=== PATIENT | female | born 1965 | race Caucasian/White ===

== ENCOUNTER → 2017-07-31 | Outpatient (CLI) | payer MEDICARE, OTHER ==
--- NOTE | 2017-07-31 19:53 | MR ---
EXAMINATION TYPE: MR curtis/katelyn wo con DATE OF EXAM: 07/31/2017 COMPARISON: NONE HISTORY: Pain TECHNIQUE: T1 sagittal and coronal, T2 sagittal, and gradient echo axial views of the cervical spine are submitted. FINDINGS: The cranial cervical junction is preserved. There is no abnormal signal seen within the sp inal cord or paraspinal soft tissues. At C2-3 there is no disc herniation or canal stenosis. No foraminal encroachment At C3-4 there is mild hypertrophic change of the facets. There is no disc herniation or canal stenosi s. No foraminal encroachment. At C4-5 there is mild facet arthropathy. No disc herniation or canal stenosis. Neural foramina are pa tent. At C5-6 there is mild degenerative disc disease and bilateral uncovertebral joint projecting. There i s circumferential disc bulging. No Canal stenosis. There is mild hypertrophic change of the facets an d mild bilateral foraminal encroachment. At C6-7 there is severe degenerative disc disease. There is uncovertebral joint hypertrophy on the le ft contributes to mild left foraminal encroachment. No discrete disc herniation or canal stenosis. At C7-T1 there is no disc herniation or canal stenosis. No foraminal encroachment. IMPRESSION: 1. Multilevel degenerative disc disease with no evidence of canal stenosis or discrete herniation. U ncovertebral joint hypertrophy at C5-C6 and C6-C7 results in mild foraminal encroachment as discussed above. EXAMINATION TYPE: MR curtis/katelyn wo con DATE OF EXAM: 07/31/2017 COMPARISON: NONE HISTORY: Pain Standard multiplanar, multisequence MRI departmental protocol Multiplanar, multisequence images of the thoracic spine were acquired. FINDINGS: At T7-T8 there is degenerative disc disease and broad-based central disc bulging with mild effacement of sac. No foraminal encroachment or canal stenosis. T8-T9 there is degenerative disc disease. No disc herniation, canal stenosis or foraminal encroachmen t. Tiny vertebral body hemangioma noted. At T9-T10 there is degenerative disc disease. There is disc bulging greater paracentrally to the left . No spinal cord contact. Neural foramina remains patent. Remaining levels demonstrate no disc herniation, canal stenosis, or foraminal encroachment. There is a large hiatal hernia. No abnormal signal the visualized spinal cord. IMPRESSION: 1. Multilevel mild degenerative disc disease with disc bulging at T7-T8 and T9-T10 with mild effaceme nt of thecal sac. No foraminal encroachment at either level. 2. Large hiatal hernia.
== END | disposition home or self-care (01) ==
LOC: RADMRIMAIN 17:26
PROVIDERS: ATTEND Psychiatry & Neurology Neurology
DX: M51.24 Other intervertebral disc displacement, thoracic region (principal); M50.322 Other cervical disc degeneration at C5-C6 level; M51.34 Other intervertebral disc degeneration, thoracic region; M89.38 Hypertrophy of bone, other site
CPT/HCPCS: 72141; 72146

== ENCOUNTER → 2017-12-07 | Outpatient (CLI) | payer MEDICARE, OTHER ==
--- NOTE | 2017-12-07 22:49 | MR ---
EXAMINATION TYPE: MR lumbar spine wo con DATE OF EXAM: 12/07/2017 COMPARISON: NONE HISTORY: Chronic low back pain TECHNIQUE: Multiplanar, multisequence imaging of the lumbar spine is performed without IV contrast. FINDINGS: Sagittal images of the lumbar spine show vertebral body heights and alignment to appear sat isfactory. Multilevel disc desiccation is present there is moderate disc space narrowing L2-L3 and L3 -L4 levels with small posterior disc herniation seen on sagittal images at these levels and mild to m oderate anterior spurring. The conus medullaris is normal in position and signal ending mid L1 level . Small hemangioma L4 level is noted. Axial images show the T12-L1 and L1-L2 levels to appear within normal limits. Axial images at the L2-L3 level shows broad-based posterior disc protrusion mildly effaces the anteri or thecal sac, bilateral neural foramina show mild left-sided anterior inferior neural foraminal narr owing. Right-sided neural foramina is patent. Axial images at the L3-L4 level show mild to moderate broad disc bulge mildly effacing anterior theca l sac and causing mild bilateral anterior inferior neural foraminal narrowing. Axial images at L4-L5 level shows mild facet degenerative changes bilaterally. Spinal canal is preser amie. Bilateral neural foramina are patent. Axial images at the L5-S1 level show mild facet degenerative changes bilaterally. The central disc pr otrusion seen. Spinal canal is preserved. Bilateral neural foramina are patent. No suspicious incidental retroperitoneal findings are seen. IMPRESSION: Multilevel degenerative changes in the mid to lower lumbar spine as detailed above.
== END | disposition home or self-care (01) ==
LOC: RADMRIMAIN 16:22
PROVIDERS: ATTEND Psychiatry & Neurology Neurology
DX: D18.09 Hemangioma of other sites (principal); M48.061 Spinal stenosis, lumbar region without neurogenic claudication; M99.73 Connective tissue and disc stenosis of intervertebral foramina of lumbar region; M51.26 Other intervertebral disc displacement, lumbar region; M47.817 Spondylosis without myelopathy or radiculopathy, lumbosacral region
CPT/HCPCS: 72148

== ENCOUNTER 2018-04-20 01:12 | Emergency (ER) | payer MEDICARE, OTHER ==
[2018-04-20 01:56] LABS: Anisocytosis Slight; Basophils % (A) 0 %; Eosinophils # (A) 0.3 k/uL (0-0.7); Eosinophils % (A) 4 %; HCT 39.9 % (34.0-46.0); HGB 12.2 gm/dL (11.4-16.0); Hypochromasia Slight; Lymphocytes # (A) 1.2 k/uL (1.0-4.8); Lymphocytes % (A) 13 %; MCHC 30.6 g/dL (31.0-37.0); MCV 78.5 fL (80.0-100.0); Mean Platelet Volume 6.6; Microcytosis Slight; Monocytes # (A) 0.4 k/uL (0-1.0); Monocytes % (A) 5 %; Neutrophils # (A) 7.3 k/uL (1.3-7.7); Neutrophils % (A) 78 %; Platelet Count 328 k/uL (150-450); RBC 5.08 m/uL (3.80-5.40); WBC 9.4 k/uL (3.8-10.6)
[2018-04-20 02:07] LABS: Potassium 4.6 mmol/L (3.5-5.1)
[2018-04-20 02:08] LABS: Albumin 4.1 g/dL (3.5-5.0); Calcium 9.7 mg/dL (8.4-10.2); Total Bilirubin 0.4 mg/dL (0.2-1.3); Total Protein 6.7 g/dL (6.3-8.2)
--- NOTE | 2018-04-20 03:54 | ED ---
General Adult HPI - General Stated complaint: poss seizure Time Seen by Provider: 04/20/18 01:28 Source: patient, EMS Mode of arrival: EMS Limitations: no limitations - History of Present Illness Initial comments: Solange is a 52-year-old female presents to the emergency department today via EMS for reevaluation of an episode of confusion that occurred earlier in the day. Patient reports that earlier in the day she was at her home when she reports she just became very confused and disoriented, patient was seen and evaluated and outside hospital where she had lab work, head CT and urinalysis. Her workup was unremarkable and she was discharged home. Patient reports that upon discharge home her family became concerned that she didn't stay in the hospital called EMS and requested she come to our hospital for reevaluation. Patient reports that she was feeling confused her hands were flailing around but that she remembers the entire event. She denies any associated fevers, chills, nausea, vomiting, chest pain, palpitations. She reports she's been otherwise feeling well. - Related Data Home Medications Medication Instructions Recorded Confirmed Citalopram 60 Mg 60 mg PO 1300 09/18/14 11/09/14 Donepezil [Aricept] 10 mg PO BID 09/18/14 11/09/14 Gabapentin 800 mg PO QID 09/18/14 11/09/14 Meloxicam [Mobic] 7.5 mg PO 1100,2300 09/18/14 11/09/14 Omeprazole [PriLOSEC] 20 mg PO 1100,2300 09/18/14 11/09/14 Oxycodone 5 Mg 5 mg PO 5XD 09/18/14 11/09/14 Theophylline 12 Hour [Jayro-Dur] 300 mg PO DAILY@0500,1700 09/18/14 11/09/14 rOPINIRole HCL [Requip Xl] 3 mg PO DAILY@2300 09/18/14 11/09/14 Diazepam [Valium] 10 mg PO HS 11/07/14 11/09/14 Ergocalciferol [Vitamin D2 50,000 unit PO QMONTH 11/07/14 11/09/14 (DRISDOL)] Ferrous Sulfate [Iron (65 MG 1 tab PO DAILY 11/07/14 11/09/14 Elemental)] Gemfibrozil [Lopid] 600 mg PO HS 11/07/14 11/09/14 risperiDONE [RisperDAL] 10 mg PO BID 11/07/14 11/09/14 Allergies Allergy/AdvReac Type Severity Reaction Status Date / Time No Known Allergies Allergy Verified 11/07/14 15:15 Review of Systems ROS Statement: Those systems with pertinent positive or pertinent negative responses have been documented in the HPI. ROS Other: All systems not noted in ROS Statement are negative. Past Medical History Past Medical History: Asthma, COPD, GERD/Reflux, Memory Impairment, Musculoskeletal Disorder, Osteoarthritis (OA), Sleep Apnea/CPAP/BIPAP Additional Past Medical History / Comment(s): PT STATES SOME MEMORY PROBLEMS AND LEARNING DISABILITY, HAS FRIEND WHO HELPS HER WITH MEDICATIONS AND APPTS., STATES MUSCLE SPASMS, BACK PROBLEMS WITH DISC DISEASE, ANEMIA, URINARY URGENCY, PROBLEMS WITH DIARRHEA & CONSTIPATION. History of Any Multi-Drug Resistant Organisms: None Reported Past Surgical History: Section, Cholecystectomy, Hysterectomy Additional Past Surgical History / Comment(s): 2 C-SECTIONS, PARTIAL HYSTERECTOMY, BERNADETTE REMOVED. Past Anesthesia/Blood Transfusion Reactions: Motion Sickness Additional Past Anesthesia/Blood Transfusion Reaction / Comment(s): STATES DIFFICULTY WAKING UP AFTER ANESTHESIA Past Psychological History: Anxiety, Depression Smoking Status: Former smoker Past Alcohol Use History: None Reported Past Drug Use History: None Reported - Past Family History Mother Family Medical History: Cancer Additional Family Medical History / Comment(s): LUNG AND BRAIN CA General Exam - General Exam Comments Initial Comments: Physical Exam GENERAL: Patient is well-developed and well-nourished. Patient is nontoxic and well- hydrated and is in no distress. HENT: Normocephalic, Atraumatic. EYES: PERRL, EOMI PULMONARY: Unlabored respirations. No audible rales rhonchi or wheezing was noted. CARDIOVASCULAR: There is a regular rate and rhythm without any murmurs gallops or rubs. ABDOMEN: Soft and nontender with normal bowel sounds. SKIN: Skin is clear with no lesions or rashes and otherwise unremarkable. : Deferred NEUROLOGIC: Patient is alert and oriented x3. Moving all extremities spontaneously MUSCULOSKELETAL: Normal extremities with adequate strength and full range of motion. No lower extremity swelling or edema. No calf tenderness. Walks with cane PSYCHIATRIC: Normal psychiatric evaluation. Limitations: no limitations Limitations: no limitations Course Vital Signs 04/20/18 04/20/18 01:28 06:20 Temperature 98.5 F 98.0 F Pulse Rate 94 80 Respiratory 16 19 Rate Blood Pressure 143/103 125/92 O2 Sat by Pulse 96 97 Oximetry EKG Findings - EKG Comments: EKG Findings:: EKG obtained at 2:12 AM, rate is 83 rhythm is sinus there is normal axis normal intervals no acute ST elevations or depressions no evidence of ischemia or infarction. Medical Decision Making - Medical Decision Making The patient was seen and evaluated history was obtained from patient, EMS and review of outpatient records which she brought with her Patient had a episode of feeling confused earlier in the day, she was evaluated and had a negative head CT normal labs and was discharged home and advised to follow-up with her primary care physician. Patient returns to the emergency department for reevaluation, at this time she is awake alert oriented in no acute distress. Family called prior to the patient arriving advising that they were unable to travel with her with EMS and that she needs to stay in the hospital overnight because they have no means of transportation to bring her home. Patient was evaluated and was noted be stable, repeat labs were obtained Patient was given IV fluids. Patient remained stable with no episodes of confusion no focal neurological deficits, no seizure activity at this time I do not feel the patient requires inpatient admission. Patient agreeable to this. Patient's agreeable to plan for discharge home however is concerned she doesn't have a ride. Patient was observed until 6:30 AM at which time she was encouraged to contact her family for a ride home. Patient care was discussed with her primary care physician Dr. Leal who states that he will see the patient in office on Thursday at 11 AM. Patient was updated on this plan and is agreeable. Patient discharged home in stable condition return parameters were discussed and questions pertaining to care were answered. - Lab Data Result diagrams: 04/20/18 01:37 04/20/18 01:37 Lab Results 04/20/18 04/20/18 04/20/18 Range/Units 01:37 01:37 01:37 WBC 9.4 (3.8-10.6) k/uL RBC 5.08 (3.80-5.40) m/uL Hgb 12.2 (11.4-16.0) gm/dL Hct 39.9 (34.0-46.0) % MCV 78.5 L (80.0-100.0) fL MCH 24.0 L (25.0-35.0) pg MCHC 30.6 L (31.0-37.0) g/dL RDW 18.0 H (11.5-15.5) % Plt Count 328 (150-450) k/uL Neutrophils % 78 % Lymphocytes % 13 % Monocytes % 5 % Eosinophils % 4 % Basophils % 0 % Neutrophils # 7.3 (1.3-7.7) k/uL Lymphocytes # 1.2 (1.0-4.8) k/uL Monocytes # 0.4 (0-1.0) k/uL Eosinophils # 0.3 (0-0.7) k/uL Basophils # 0.0 (0-0.2) k/uL Hypochromasia Slight Anisocytosis Slight Microcytosis Slight Sodium 139 (137-145) mmol/L Potassium 4.6 (3.5-5.1) mmol/L Chloride 105 (98-107) mmol/L Carbon Dioxide 23 (22-30) mmol/L Anion Gap 11 mmol/L BUN 14 (7-17) mg/dL Creatinine 1.03 (0.52-1.04) mg/dL Est GFR (CKD-EPI)AfAm 71 (>60 ml/min/1.73 sqM) Est GFR (CKD-EPI)NonAf 62 (>60 ml/min/1.73 sqM) Glucose 115 H (74-99) mg/dL Lactic Ac Sepsis Rflx Plasma Lactic Acid Mak 2.2 H* (0.7-2.0) mmol/L Calcium 9.7 (8.4-10.2) mg/dL Total Bilirubin 0.4 (0.2-1.3) mg/dL AST 25 (14-36) U/L ALT 24 (9-52) U/L Alkaline Phosphatase 89 (38-126) U/L Total Protein 6.7 (6.3-8.2) g/dL Albumin 4.1 (3.5-5.0) g/dL Urine Color Urine Appearance (Clear) Urine pH (5.0-8.0) Ur Specific [place] (1.001-1.035) Urine Protein (Negative) Urine Glucose (UA) (Negative) Urine Ketones (Negative) Urine Blood (Negative) Urine Nitrite (Negative) Urine Bilirubin (Negative) Urine Urobilinogen (<2.0) mg/dL Ur Leukocyte Esterase (Negative) Urine RBC (0-5) /hpf Urine WBC (0-5) /hpf Ur Squamous Epith Cells (0-4) /hpf Urine Bacteria (None) /hpf Urine Mucus (None) /hpf 04/20/18 04/20/18 04/20/18 Range/Units 02:17 02:45 06:05 WBC (3.8-10.6) k/uL RBC (3.80-5.40) m/uL Hgb (11.4-16.0) gm/dL Hct (34.0-46.0) % MCV (80.0-100.0) fL MCH (25.0-35.0) pg MCHC (31.0-37.0) g/dL RDW (11.5-15.5) % Plt Count (150-450) k/uL Neutrophils % % Lymphocytes % % Monocytes % % Eosinophils % % Basophils % % Neutrophils # (1.3-7.7) k/uL Lymphocytes # (1.0-4.8) k/uL Monocytes # (0-1.0) k/uL Eosinophils # (0-0.7) k/uL Basophils # (0-0.2) k/uL Hypochromasia Anisocytosis Microcytosis Sodium (137-145) mmol/L Potassium (3.5-5.1) mmol/L Chloride (98-107) mmol/L Carbon Dioxide (22-30) mmol/L Anion Gap mmol/L BUN (7-17) mg/dL Creatinine (0.52-1.04) mg/dL Est GFR (CKD-EPI)AfAm (>60 ml/min/1.73 sqM) Est GFR (CKD-EPI)NonAf (>60 ml/min/1.73 sqM) Glucose (74-99) mg/dL Lactic Ac Sepsis Rflx Y Plasma Lactic Acid Mak 1.6 (0.7-2.0) mmol/L Calcium (8.4-10.2) mg/dL Total Bilirubin (0.2-1.3) mg/dL AST (14-36) U/L ALT (9-52) U/L Alkaline Phosphatase (38-126) U/L Total Protein (6.3-8.2) g/dL Albumin (3.5-5.0) g/dL Urine Color Yellow Urine Appearance Clear (Clear) Urine pH 6.0 (5.0-8.0) Ur Specific [place] 1.012 (1.001-1.035) Urine Protein Negative (Negative) Urine Glucose (UA) Negative (Negative) Urine Ketones Negative (Negative) Urine Blood Negative (Negative) Urine Nitrite Positive H (Negative) Urine Bilirubin Negative (Negative) Urine Urobilinogen <2.0 (<2.0) mg/dL Ur Leukocyte Esterase Negative (Negative) Urine RBC 1 (0-5) /hpf Urine WBC 3 (0-5) /hpf Ur Squamous Epith Cells 1 (0-4) /hpf Urine Bacteria Many H (None) /hpf Urine Mucus Occasional H (None) /hpf Disposition Clinical Impression: Confusion Disposition: HOME SELF-CARE Condition: Stable Instructions (If sedation given, give patient instructions): Encephalopathy (DC ) Additional Instructions: Dr. Leal can see you in the office on Thursday at 11 AM, please call his office today to confirm this. Is patient prescribed a controlled substance at d/c from ED?: No Referrals: Michael Leal MD [Primary Care Provider] - 1-2 days
[2018-04-20 04:04] LABS: Appearance,Urine Clear (Clear); Bacteria,Urine Many /hpf; Bilirubin,Urine Negative (Negative); Blood,Urine Negative (Negative); Color,Urine Yellow; Glucose,Urine (UA) Negative (Negative); Ketones,Urine Negative (Negative); Leukocyte Esterase,Urine Negative (Negative); Mucus,Urine Occasional /hpf; Nitrite,Urine Positive (Negative); Protein,Urine Negative (Negative); RBC,Urine 1 /hpf (0-5); Specific Gravity,Urine 1.012 (1.001-1.035); Squamous Epithelial Cell,Urine 1 /hpf (0-4); Urobilinogen,Urine <2.0 mg/dL (<2.0); WBC,Urine 3 /hpf (0-5)
[2018-04-20 06:22] VITALS: BP 125/92; PULSE 80; RESP 19; TEMP 98
== END 2018-04-20 06:32 | disposition home or self-care (01) ==
LOC: EC 01:12
DX: R41.0 Disorientation, unspecified (principal); J44.9 Chronic obstructive pulmonary disease, unspecified; K21.9 Gastro-esophageal reflux disease without esophagitis; M19.90 Unspecified osteoarthritis, unspecified site; G47.30 Sleep apnea, unspecified; D64.9 Anemia, unspecified; F32.9 Major depressive disorder, single episode, unspecified; F41.9 Anxiety disorder, unspecified; Z87.891 Personal history of nicotine dependence; Z79.1 Long term (current) use of non-steroidal anti-inflammatories (NSAID); Z79.891 Long term (current) use of opiate analgesic; Z79.899 Other long term (current) drug therapy; Z99.89 Dependence on other enabling machines and devices
CPT/HCPCS: 36415; 80053; 81001; 83605; 85025; 93005; 99285

== ENCOUNTER → 2022-01-01 | Outpatient (CLI) | payer MEDICARE ==
--- NOTE | 2022-01-01 10:30 | US ---
EXAMINATION TYPE: US venous doppler duplex LE RT DATE OF EXAM: 01/01/2022 10:17 AM COMPARISON: NONE CLINICAL HISTORY: I80.9 phlebitis. Right knee pain increasing since trauma 3 years prior. SIDE PERFORMED: TECHNIQUE: The lower extremity deep venous system is examined utilizing real time linear array sonog weston with graded compression, doppler sonography and color-flow sonography. VESSELS IMAGED: Common Femoral Vein Deep Femoral Vein Greater Saphenous Vein * Femoral Vein Popliteal Vein Small Saphenous Vein * Proximal Calf Veins (* superficial vessels) Right Leg: Negative for DVT IMPRESSION: No evidence for DVT at this time.
== END | disposition home or self-care (01) ==
LOC: RADUSWWP 09:52
PROVIDERS: ATTEND Orthopaedic Surgery
DX: I80.9 Phlebitis and thrombophlebitis of unspecified site (principal); M17.0 Bilateral primary osteoarthritis of knee; M23.301 Other meniscus derangements, unspecified lateral meniscus, left knee; M23.304 Other meniscus derangements, unspecified medial meniscus, left knee

== ENCOUNTER → 2022-03-10 | Outpatient (CLI) | payer MEDICARE ==
--- NOTE | 2022-03-10 13:35 | CTL ---
EXAMINATION TYPE: CT Low Dose Lung DATE OF EXAM ORDERED: 03/10/2022 HISTORY: Z87.891 Personal History of Tobacco Use. Lung cancer screening CT DLP: 68.[address] CTDI: 2.40 mGy Automated exposure control for dose reduction was used. SCREENING VISIT: First COMPARISON: None TECHNIQUE: Low dose computed tomography scan was performed through the chest at 1 mm thick sections a nd reconstructed images in multiple planes at 1 mm and [address] DIAGNOSTIC QUALITY: Satisfactory FINDINGS: LUNG NODULES: Right apical 3 mm pulmonary nodule (series 4, image 31). Right upper lobe anterior calc ified granuloma measuring 5 mm (series 4, image 89). Right upper lobe 5 mm nodule along the right min or fissure (series 4, image 99). This may represent intrafissural lymph node. LUNGS: COPD: Severity: Minimal. Fibrosis: Severity: None Lymph nodes: None Other findings: None RIGHT PLEURAL SPACE: Effusion: None Calcification: None Thickening: None Pneumothorax: None LEFT PLEURAL SPACE: Effusion: None Calcification: None Thickening: None Pneumothorax: None HEART: Heart Size: Normal Coronary Calcification: None Pericardial Effusion: None OTHER FINDINGS: Upper abdomen: Moderate sized hiatal hernia. Postcholecystectomy Bony thorax: None Supraclavicular region: None Other: None IMPRESSION: 1. Couple of pulmonary nodules measuring up to 5 mm. 2. Moderate-sized hiatal hernia. CT LUNG RAD AND CT CHEST RECOMMENDATION: Lung-Rad 2 Benign Appearance or Behavior: Continue annual sc reening with LDCT in 12 months. S Modifier (other clinically significant findings): None
== END | disposition home or self-care (01) ==
LOC: RADCTMAIN 12:46
PROVIDERS: ATTEND Internal Medicine
DX: Z12.2 Encounter for screening for malignant neoplasm of respiratory organs (principal); R91.8 Other nonspecific abnormal finding of lung field; K44.9 Diaphragmatic hernia without obstruction or gangrene; Z87.891 Personal history of nicotine dependence
CPT/HCPCS: 71271

== ENCOUNTER → 2022-11-13 | Outpatient (CLI) | payer MEDICARE ==
--- NOTE | 2022-11-13 13:18 | XR ---
EXAMINATION TYPE: XR abdomen 2V DATE OF EXAM: 11/13/2022 COMPARISON: NONE HISTORY: Pain TECHNIQUE: Single supine KUB image of the abdomen is obtained FINDINGS: Small bowel demonstrates no evidence for dilatation or air fluid levels. Biliary stent is again noted as well as catheter. Cholecystectomy clips are in place. MediPort cathet er partially imaged. Gas and fecal material is seen in non-distended colon. No convincing evidence for pneumoperitoneum. No unusual calcifications. The lung bases are clear. The osseous structures are intact. IMPRESSION: 1. Overall nonobstructive bowel gas pattern.
== END | disposition home or self-care (01) ==
LOC: RADXRMAIN 11:51
PROVIDERS: ATTEND Internal Medicine Hematology & Oncology
DX: C25.0 Malignant neoplasm of head of pancreas (principal); N18.9 Chronic kidney disease, unspecified; J44.9 Chronic obstructive pulmonary disease, unspecified; E78.5 Hyperlipidemia, unspecified
CPT/HCPCS: 74019

== ENCOUNTER 2022-11-28 13:02 | Inpatient (IN) | payer MEDICARE ==
[2022-11-28] MEDS ORDERED: SODIUM CHLORIDE 0.9% 500 ML 500 ML IV STA (13:35)
--- NOTE | 2022-11-28 13:39 | ED ---
General Adult HPI - General Source: patient, RN notes reviewed, old records reviewed Mode of arrival: wheelchair Limitations: no limitations <Otoniel Nichols - Last Filed: 11/28/22 15:12> <Franklyn Francois - Last Filed: 11/28/22 16:38> - General Chief complaint: Weakness Stated complaint: Dehydration,Weakness Time Seen by Provider: 11/28/22 13:05 - History of Present Illness Initial comments: This is a 57-year-old female presents emergency Department she has a past medical history significant for pancreatic metastatic cancer. Patient got chemo on November 17. Patient states she's been having quite a bit of diarrhea since then and she has also been getting weaker and has not been urinating for the last couple of days. Patient denies any chest pain or palpitations. Patient denies difficulty breathing shortness of breath. Patient denies any fever chills. Patient denies any abdominal pain patient denies any nausea or vomiting. (Otoniel Nichols) - Related Data Home Medications Medication Instructions Recorded Confirmed Albuterol Inhaler [Ventolin Hfa 1 - 2 puff INHALATION RT-Q6H PRN 11/03/22 11/28/22 Inhaler] Aspirin EC [Ecotrin Low Dose] 81 mg PO DAILY 11/03/22 11/28/22 DULoxetine HCL [Cymbalta] 30 mg PO BID 11/03/22 11/28/22 Ferrous Sulfate [Iron] 325 mg PO DAILY 11/03/22 11/28/22 Fluticasone/Umeclidin/Vilanter 1 puff INHALATION RT-DAILY 11/03/22 11/28/22 [Trelegy Ellipta 100-62.5-25] Metoprolol Tartrate [Lopressor] 25 mg PO BID 11/03/22 11/28/22 Midodrine HCl 5 mg PO TID 11/03/22 11/28/22 Potassium Chloride ER [K-Dur 20] 20 meq PO BID 11/03/22 11/28/22 calcitrioL [Calcitriol] 0.25 mcg PO DAILY 11/03/22 11/28/22 Budesonide [Pulmicort] 0.5 mg INHALATION RT-BID 11/28/22 11/28/22 Cholestyramine (with Sugar) 4 gm PO BID 11/28/22 11/28/22 [Cholestyramine Powder] Famotidine [Pepcid] 40 mg PO DAILY 11/28/22 11/28/22 Ipratropium-Albuterol Nebulize 3 ml INHALATION RT-Q6H PRN 11/28/22 11/28/22 [Duoneb 0.5 mg-3 mg/3 ml Soln] LORazepam [Ativan] 0.5 mg PO Q8HR PRN 11/28/22 11/28/22 Ondansetron [Zofran] 4 mg PO Q6H PRN 11/28/22 11/28/22 Pantoprazole Sodium [Protonix] 40 mg PO BID 11/28/22 11/28/22 Rosuvastatin Calcium 5 mg PO HS 11/28/22 11/28/22 lamoTRIgine [LaMICtal] 75 mg PO HS 11/28/22 11/28/22 Allergies Allergy/AdvReac Type Severity Reaction Status Date / Time No Known Allergies Allergy Verified 11/28/22 15:42 Review of Systems ROS Other: All systems not noted in ROS Statement are negative. <Otoniel Nichols - Last Filed: 11/28/22 15:12> ROS Other: All systems not noted in ROS Statement are negative. <Franklyn Francois - Last Filed: 11/28/22 16:38> ROS Statement: Those systems with pertinent positive or pertinent negative responses have been documented in the HPI. Past Medical History Past Medical History: Asthma, Cancer, COPD, GERD/Reflux, Memory Impairment, Mu sculoskeletal Disorder, Osteoarthritis (OA), Sleep Apnea/CPAP/BIPAP Additional Past Medical History / Comment(s): PT STATES SOME MEMORY PROBLEMS AND LEARNING DISABILITY, HAS FRIEND WHO HELPS HER WITH MEDICATIONS AND APPTS., STATES MUSCLE SPASMS, BACK PROBLEMS WITH DISC DISEASE, ANEMIA, URINARY URGENCY, PROBLEMS WITH DIARRHEA & CONSTIPATION.Pancreatic CA History of Any Multi-Drug Resistant Organisms: None Reported Past Surgical History: Section, Cholecystectomy, Hysterectomy Additional Past Surgical History / Comment(s): 2 C-SECTIONS, PARTIAL HYSTERECTOMY, BERNADETTE REMOVED. Past Anesthesia/Blood Transfusion Reactions: Motion Sickness Additional Past Anesthesia/Blood Transfusion Reaction / Comment(s): STATES DIFFICULTY WAKING UP AFTER ANESTHESIA Past Psychological History: Anxiety, Depression Smoking Status: Former smoker Past Alcohol Use History: None Reported Past Drug Use History: None Reported - Past Family History Mother Family Medical History: Cancer Additional Family Medical History / Comment(s): LUNG AND BRAIN CA <Otoniel Nichols - Last Filed: 11/28/22 15:12> General Exam Limitations: no limitations <Otoniel Nichols - Last Filed: 11/28/22 15:12> - General Exam Comments Initial Comments: GENERAL: Patient is well-developed and well-nourished. Patient is nontoxic and well- hydrated and is in mild distress. ENT: Neck is soft and supple. No significant lymphadenopathy is noted. Oropharynx is clear. Moist mucous membranes. Neck has full range of motion without eliciting any pain. EYES: The sclera were anicteric and conjunctiva were pink and moist. Extraocular movements were intact and pupils were equal round and reactive to light. Eyelids were unremarkable. PULMONARY: Unlabored respirations. Good breath sounds bilaterally. No audible rales rhonchi or wheezing was noted. CARDIOVASCULAR: There is a regular rate and rhythm without any murmurs gallops or rubs. ABDOMEN: Soft and nontender with normal bowel sounds. SKIN: Skin is clear with no lesions or rashes and otherwise unremarkable. NEUROLOGIC: Patient is alert and oriented x3. Cranial nerves II through XII are grossly intact. Motor and sensory are also intact. Normal speech, volume and content. Symmetrical smile. MUSCULOSKELETAL: Normal extremities with adequate strength and full range of motion. No lower extremity swelling or edema. No calf tenderness. LYMPHATICS: No significant lymphadenopathy is noted PSYCHIATRIC: Normal psychiatric evaluation. (Otoniel Nichols) Course Vital Signs 11/28/22 11/28/22 13:05 15:08 Temperature 97.7 F Pulse Rate 129 H 97 Respiratory 22 18 Rate Blood Pressure 90/66 112/87 O2 Sat by Pulse 97 100 Oximetry Medical Decision Making - Lab Data Result diagrams: 11/28/22 14:18 <Otoniel Nichols - Last Filed: 11/28/22 15:12> - Lab Data Result diagrams: 11/28/22 14:18 11/28/22 14:18 <Franklyn Francois - Last Filed: 11/28/22 16:38> - Medical Decision Making EKG was interpreted by myself. EKG shows a sinus rhythm occasional PAC at 99 bpm UT interval is on a 55 QRS is 82 QT interval 385 QTC is 441. Patient's EKG shows no ST segment elevation or depression. Was pt. sent in by a medical professional or institution (, [facility], [facility], urgent care, hospital, or residential...) When possible be specific @ -Was sent to the emergency department by the oncologist Did you speak to anyone other than the patient for history (EMS, parent, family, police, friend...)? What history was obtained from this source @ -Daughter did quite a bit of the history Did you review nursing and triage notes (agree or disagree)? Why? @ -[I reviewed and agree with nursing and triage notes] Were old charts reviewed (outside hosp., previous admission, EMS record, old EKG, old radiological studies, urgent care reports/EKG's, residential records)? Report findings @ -I reviewed prior charts from prior lab work Differential Diagnosis (chest pain, altered mental status, abdominal pain women, abdominal pain men, vaginal bleeding, weakness, fever, dyspnea, syncope, headache, dizziness, GI bleed, back pain, seizure, CVA, palpatations, mental health, musculoskeletal)? @ -Differential Weakness: Hypoglycemia, shock, sepsis, hyponatremia, anemia, infection, KS, ETOH, adverse medicine reaction, overdose, stroke, this is not meant to be an all-inclusive list. EKG interpreted by me (3pts min.). @ -[As above] X-rays interpreted by me (1pt min.). @ -[None done] CT interpreted by me (1pt min.). @ -[None done] U/S interpreted by me (1pt. min.). @ -[None done] What testing was considered but not performed or refused? (CT, X-rays, U/S, l abs)? Why? @ -[None] What meds were considered but not given or refused? Why? @ -[None] Did you discuss the management of the patient with other professionals (professionals i.e. [facility] Blancas, [facility], lab, RT, psych nurse, director of social work, scheduler conveyor, teacher, safety and security officer, pillowcase cleaner)? Give summary @ -[No] Was smoking cessation discussed for >3mins.? @ -[No] Was critical care preformed (if so, how long)? @ -[No] Were there social determinants of health that impacted care today? How? (Homelessness, low income, unemployed, alcoholism, drug addiction, transportation, low edu. Level, literacy, decrease access to med. care, fdc, rehab)? @ -[No] Was there de-escalation of care discussed even if they declined (Discuss DNR or withdrawal of care, Hospice)? DNR status @ -[No] What co-morbidities impacted this encounter? (DM, HTN, Smoking, COPD, CAD, Cancer, CVA, ARF, Chemo, Hep., AIDS, mental health diagnosis, sleep apnea, morbid obesity)? @ -[None] Was patient admitted / discharged? Hospital course, mention meds given and route, prescriptions, significant lab abnormalities, going to OR and other p ertinent info. @ -Patient will be signed out to Dr. Francois at 3 PM he will be taking over the care that point in time (Otoniel Nichols) Patient signed out to me pending results of workup. Patient is a history of pancreatic cancer and has a history after chemotherapy with intractable nausea, vomiting, diarrhea. This is been ongoing for the last week. Has been feeling weaker with us urine production. Presents for further evaluation at this time. Workup thus far started EKG without any obvious acute ischemic process. EKG was interpreted by myself as well as Dr. Nichols. Chest x-ray as interpreted by myself reveals no evidence of acute cardio pulmonary process. Patient's laboratory studies returned and were remarkable for a leukopenia as well as leukocytopenia, both of which are likely related to her recent chemotherapy. Patient's hypokalemia at 2.5 with no evidence of EKG changes. Supplementation was started. Remainder of labs are within acceptable limits. Her flanks start the patient on potassium supplementation as well as magnesium supplementation. Continued IV fluids. I treated the patient, and I recommended we obtain a urina lysis which is still pending as well as the Covid swab but I have low suspicion for infectious cause of this at this time. Likely related to the recent chemotherapy. Patient was in agreement this plan as this has occurred previously and she denies any fevers. I will provide additional potassium s upplementation at this time, and admit the patient for IV fluids as well as potassium. Patient was in agreement this plan. Dr. Murray will be consulted. I spoke with the attending physician, Dr. Leal who accepted the patient. Diagnosis/symptom? @ -Hypokalemia and dehydration, likely secondary to nausea and vomiting as well as dehydration from chemotherapy with history of pancreatic cancer Acute, or Chronic, or Acute on Chronic? @ -Acute Uncomplicated (without systemic symptoms) or Complicated (systemic symptoms)? @ -Complicated Side ffecs of treatment? @ -none Exacerbation, Progression, orSeere Exacerbation] @ -no Poses a threat to life or bodily function? @ -yes. (Franklyn Francois) - Lab Data Lab Results 11/28/22 11/28/22 11/28/22 Range/Units 14:18 14:18 14:18 WBC 1.6 L (3.8-10.6) k/uL RBC 5.42 H (3.80-5.40) m/uL Hgb 14.9 (11.4-16.0) gm/dL Hct 42.6 (34.0-46.0) % MCV 78.6 L (80.0-100.0) fL MCH 27.5 (25.0-35.0) pg MCHC 35.0 (31.0-37.0) g/dL RDW 13.8 (11.5-15.5) % Plt Count 50 L D (150-450) k/uL MPV 12.7 Neutrophils % (Manual) 36 % Band Neuts % (Manual) 2 % Lymphocytes % (Manual) 28 % Monocytes % (Manual) 26 % Eosinophils % (Manual) 8 % Neutrophils # (Manual) 0.60 L (1.3-7.7) k/uL Lymphocytes # (Manual) 0.45 L (1.0-4.8) k/uL Monocytes # (Manual) 0.42 (0-1.0) k/uL Eosinophils # (Manual) 0.13 (0-0.7) k/uL Nucleated RBCs 0 (0-0) /100 WBC Manual Slide Review Performed PT 12.5 H (9.0-12.0) sec INR 1.2 H (<1.2) APTT 23.7 (22.0-30.0) sec Sodium 131 L (137-145) mmol/L Potassium 2.5 L* (3.5-5.1) mmol/L Chloride 90 L (98-107) mmol/L Carbon Dioxide 22 (22-30) mmol/L Anion Gap 19 mmol/L BUN 15 (7-17) mg/dL Creatinine 0.59 (0.52-1.04) mg/dL Est GFR (CKD-EPI)AfAm >90 (>60 ml/min/1.73 sqM) Est GFR (CKD-EPI)NonAf >90 (>60 ml/min/1.73 sqM) Glucose 102 H (74-99) mg/dL Plasma Lactic Acid Mak (0.7-2.0) mmol/L Calcium 8.5 (8.4-10.2) mg/dL Magnesium 2.1 (1.6-2.3) mg/dL Total Bilirubin 1.4 H (0.2-1.3) mg/dL AST 27 (14-36) U/L ALT 57 H (4-34) U/L Alkaline Phosphatase 140 H (38-126) U/L Troponin I (0.000-0.034) ng/mL Total Protein 6.2 L (6.3-8.2) g/dL Albumin 3.4 L (3.5-5.0) g/dL 11/28/22 11/28/22 Range/Units 14:18 14:18 WBC (3.8-10.6) k/uL RBC (3.80-5.40) m/uL Hgb (11.4-16.0) gm/dL Hct (34.0-46.0) % MCV (80.0-100.0) fL MCH (25.0-35.0) pg MCHC (31.0-37.0) g/dL RDW (11.5-15.5) % Plt Count (150-450) k/uL MPV Neutrophils % (Manual) % Band Neuts % (Manual) % Lymphocytes % (Manual) % Monocytes % (Manual) % Eosinophils % (Manual) % Neutrophils # (Manual) (1.3-7.7) k/uL Lymphocytes # (Manual) (1.0-4.8) k/uL Monocytes # (Manual) (0-1.0) k/uL Eosinophils # (Manual) (0-0.7) k/uL Nucleated RBCs (0-0) /100 WBC Manual Slide Review PT (9.0-12.0) sec INR (<1.2) APTT (22.0-30.0) sec Sodium (137-145) mmol/L Potassium (3.5-5.1) mmol/L Chloride (98-107) mmol/L Carbon Dioxide (22-30) mmol/L Anion Gap mmol/L BUN (7-17) mg/dL Creatinine (0.52-1.04) mg/dL Est GFR (CKD-EPI)AfAm (>60 ml/min/1.73 sqM) Est GFR (CKD-EPI)NonAf (>60 ml/min/1.73 sqM) Glucose (74-99) mg/dL Plasma Lactic Acid Mak 1.9 (0.7-2.0) mmol/L Calcium (8.4-10.2) mg/dL Magnesium (1.6-2.3) mg/dL Total Bilirubin (0.2-1.3) mg/dL AST (14-36) U/L ALT (4-34) U/L Alkaline Phosphatase (38-126) U/L Troponin I <0.012 (0.000-0.034) ng/mL Total Protein (6.3-8.2) g/dL Albumin (3.5-5.0) g/dL Disposition <Otoniel Nichols - Last Filed: 11/28/22 15:12> Time of Disposition: 16:01 <Franklyn Francois - Last Filed: 11/28/22 16:38> Clinical Impression: Hypokalemia, Dehydration, Nausea and vomiting, Diarrhea, Chemotherapy induced diarrhea, Chemotherapy induced nausea and vomiting Disposition: ADMITTED IP TO THIS [facility] Condition: Stable Referrals: Michael Leal MD [Primary Care Provider] - 1-2 days
[2022-11-28] MEDS ORDERED: METOCLOPRAMIDE 5 MG/ML 2 ML VIAL IVP STA (13:58)
[2022-11-28 14:54] LABS: INR 1.2 (<1.2); Partial Thromboplastin Time 23.7 sec (22.0-30.0); Prothrombin Time 12.5 sec (9.0-12.0)
--- NOTE | 2022-11-28 14:54 | XR ---
EXAMINATION TYPE: XR chest 2V DATE OF EXAM: 11/28/2022 COMPARISON: NONE HISTORY: Shortness of breath TECHNIQUE: Frontal and lateral views of the chest are obtained. FINDINGS: Scattered senescent parenchymal changes noted. Hyperinflation compatible with COPD. No evidence for infiltrate. No evidence for atelectasis. Heart size is stable. Mediastinal structures are stable and grossly unremarkable. No evidence for hilar prominence. Degenerative changes dorsal spine. IMPRESSION: 1. No evidence for acute pulmonary disease.
[2022-11-28 14:59] LABS: ALT 57 U/L (4-34); AST 27 U/L (14-36); African American GFR (CKD) >90 (>60 ml/min/1.73 sqM); Albumin 3.4 g/dL (3.5-5.0); Alkaline Phosphatase 140 U/L (38-126); Anion Gap 19 mmol/L; Blood Urea Nitrogen 15 mg/dL (7-17); Calcium 8.5 mg/dL (8.4-10.2); Carbon Dioxide 22 mmol/L (22-30); Chloride 90 mmol/L (98-107); Glucose 102 mg/dL (74-99); Magnesium 2.1 mg/dL (1.6-2.3); Non-African American GFR(CKD) >90 (>60 ml/min/1.73 sqM); Sodium 131 mmol/L (137-145); Total Bilirubin 1.4 mg/dL (0.2-1.3); Total Protein 6.2 g/dL (6.3-8.2)
[2022-11-28] MEDS ORDERED: ONDANSETRON 4 MG/2 ML VIAL IVP STA (15:00)
[2022-11-28 15:03] LABS: Potassium 2.5 mmol/L (3.5-5.1)
[2022-11-28] MEDS ORDERED: POTASSIUM CHLORIDE 20 MEQ in WATER FOR INJECTION 1 100ML.BAG IVPB STA (15:04)
[2022-11-28] MEDS ORDERED: MAGNESIUM SULFATE-D5W PMX 1 GM in DEXTROSE/WATER 1 100ML.BAG IVPB ONE (15:07)
[2022-11-28] MEDS ORDERED: SODIUM CHLORIDE 0.9% 1,000 ML IV ONE (15:08)
[2022-11-28 15:24] LABS: HCT 42.6 % (34.0-46.0); HGB 14.9 gm/dL (11.4-16.0); MCH 27.5 pg (25.0-35.0); MCV 78.6 fL (80.0-100.0); Mean Platelet Volume 12.7; Platelet Count 50 k/uL (150-450); RBC 5.42 m/uL (3.80-5.40); RDW 13.8 % (11.5-15.5); WBC 1.6 k/uL (3.8-10.6)
[2022-11-28 16:12] LABS: Band Neutrophils % 2 %; Eosinophils # (M) 0.13 k/uL (0-0.7); Lymphocytes # (M) 0.45 k/uL (1.0-4.8); Monocytes # (M) 0.42 k/uL (0-1.0); Neutrophils % (M) 36 %; Nucleated Red Blood Cells 0 /100 WBC (0-0); Total Cells Counted 50
[2022-11-28] MEDS ORDERED: NALOXONE 0.4 MG/ML 1 ML VIAL IV PRN (16:14)
[2022-11-28] MEDS ORDERED: ONDANSETRON 4 MG/2 ML VIAL IVP PRN (16:14)
[2022-11-28] MEDS: SODIUM CHLORIDE 0.9% 1,000 ML IV SCH (19:44)
[2022-11-28] MEDS ORDERED: LORazepam 0.5 MG TAB PO PRN (20:59)
[2022-11-28] MEDS: ONDANSETRON 4 MG/2 ML VIAL IVP PRN (21:34)
[2022-11-28] MEDS: lamoTRIgine 25 MG TAB PO SCH (21:35)
[2022-11-28] MEDS ORDERED: Potassium Replacement Protocol 1 EACH MISC MISCELLANE PRN (22:22)
[2022-11-29] MEDS ORDERED: POTASSIUM CHLORIDE 20 MEQ in WATER FOR INJECTION 1 100ML.BAG IVPB STA (01:27)
[2022-11-29 03:01] LABS: Appearance,Urine Cloudy (Clear); Bacteria,Urine Many /hpf; Bilirubin,Urine Negative (Negative); Blood,Urine Small (Negative); Budding Yeast,Urine Occasional /hpf; Color,Urine Yellow; Glucose,Urine (UA) Negative (Negative); Ketones,Urine 3+ (Negative); Leukocyte Esterase,Urine Negative (Negative); Mucus,Urine Many /hpf; Nitrite,Urine Positive (Negative); Protein,Urine 2+ (Negative); RBC,Urine 4 /hpf (0-5); Specific Gravity,Urine 1.023 (1.001-1.035); Squamous Epithelial Cell,Urine 1 /hpf (0-4); Urobilinogen,Urine <2.0 mg/dL (<2.0); WBC,Urine 12 /hpf (0-5)
[2022-11-29] MEDS: POTASSIUM CHLORIDE 20 MEQ in WATER FOR INJECTION 1 100ML.BAG IVPB SCH ×2 (03:21→05:16)
[2022-11-29] MEDS: SODIUM CHLORIDE 0.9% 1,000 ML IV SCH ×2 (05:18→16:50)
[2022-11-29] MEDS: ONDANSETRON 4 MG/2 ML VIAL IVP PRN ×2 (05:18→21:49)
[2022-11-29] MEDS: BUDESONIDE 0.5 MG/2 ML NEBU INHALATION SCH ×2 (07:44→20:13)
[2022-11-29] MEDS: SYMBICORT 80-4.5 MCG INHALER INHALATION SCH ×2 (07:44→20:13)
[2022-11-29] MEDS: IPRATROPIUM 0.5 MG/2.5 ML NEBU INHALATION SCH ×4 (07:44→20:13)
[2022-11-29] MEDS: FAMOTIDINE 20 MG TAB PO SCH (09:16)
[2022-11-29] MEDS: FERROUS SULFATE 325 MG TAB PO SCH (09:16)
[2022-11-29] MEDS: METOPROLOL TARTRATE 25 MG TAB PO SCH ×2 (09:16→21:46)
[2022-11-29] MEDS: PANTOPRAZOLE 40 MG TABLET PO SCH ×2 (09:16→16:43)
[2022-11-29] MEDS: DULoxetine HCL 30 MG CAPSULE.DR PO SCH ×2 (09:16→21:46)
[2022-11-29] MEDS: POTASSIUM CHLORIDE ER 20 MEQ TAB.ER PO SCH ×2 (09:16→21:46)
[2022-11-29] MEDS: ASPIRIN 81 MG PO SCH (09:16)
[2022-11-29] MEDS: MIDODRINE 5 MG TAB PO SCH ×3 (09:16→21:46)
[2022-11-29] MEDS: CHOLESTYRAMINE (WITH SUGAR) 4 GM PACKET PO SCH ×2 (09:17→21:46)
[2022-11-29 11:13] LABS: HCT 34.6 % (34.0-46.0); MCH 27.6 pg (25.0-35.0); MCHC 34.7 g/dL (31.0-37.0); MCV 79.5 fL (80.0-100.0); Mean Platelet Volume 10.6; RBC 4.36 m/uL (3.80-5.40); RDW 13.8 % (11.5-15.5); WBC 4.3 k/uL (3.8-10.6)
[2022-11-29 11:37] LABS: African American GFR (CKD) >90 (>60 ml/min/1.73 sqM); Anion Gap 13 mmol/L; Blood Urea Nitrogen 14 mg/dL (7-17); Calcium 7.9 mg/dL (8.4-10.2); Carbon Dioxide 16 mmol/L (22-30); Chloride 106 mmol/L (98-107); Glucose 112 mg/dL (74-99); Non-African American GFR(CKD) >90 (>60 ml/min/1.73 sqM); Sodium 135 mmol/L (137-145)
[2022-11-29 11:40] LABS: Magnesium 2.3 mg/dL (1.6-2.3); Potassium 3.9 mmol/L (3.5-5.1)
--- NOTE | 2022-11-29 11:40 | P.NPCON ---
History of Present Illness - Reason for Consult hypokalemia - History of Present Illness Reason for consultation: Hypokalemia History of present illness: Patient is a 57-year-old female seen in consultation for hypokalemia. Patient has history of metastatic pancreatic cancer. Patient states she received chemotherapy on November 03 and 11/17/2022. Since then she hasn't been eating and drinking much. She's been having episodes of vomiting and diarrhea. Patient's his diarrhea has improved but she still having vomiting. She denies history of diabetes. No history of coronary artery disease. Denies use of nonsteroidals. No chest pain or shortness of breath. No edema. No hematuria or dysuria. Potassium level was 2.5 on admission and is being replaced. GFR is at baseline. Patient denies use of diuretics. Hemodynamically stable. No fever or chills. Vital signs are stable. General: No acute distress. HEENT: Head exam is unremarkable. LUNGS: No rhonchi or wheezes. HEART: Rate and Rhythm are regular. ABDOMEN: Nontender. EXTREMITITES: No edema. Past Medical History Past Medical History: Asthma, Cancer, COPD, GERD/Reflux, Memory Impairment, Mu sculoskeletal Disorder, Osteoarthritis (OA), Sleep Apnea/CPAP/BIPAP Additional Past Medical History / Comment(s): PT STATES SOME MEMORY PROBLEMS AND LEARNING DISABILITY, HAS FRIEND WHO HELPS HER WITH MEDICATIONS AND APPTS., STATES MUSCLE SPASMS, BACK PROBLEMS WITH DISC DISEASE, ANEMIA, URINARY URGENCY, PROBLEMS WITH DIARRHEA & CONSTIPATION.Pancreatic CA History of Any Multi-Drug Resistant Organisms: None Reported Past Surgical History: Section, Cholecystectomy, Hysterectomy Additional Past Surgical History / Comment(s): 2 C-SECTIONS, PARTIAL HYSTERECTOMY, BERNADETTE REMOVED. 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 [employer] Smoking Status: Former smoker Past Alcohol Use History: None Reported Past Drug Use History: None Reported - Past Family History Mother Family Medical History: Cancer Additional Family Medical History / Comment(s): LUNG AND BRAIN CA Medications and Allergies Home Medications Medication Instructions Recorded Confirmed Type Albuterol Inhaler [Ventolin Hfa 1 - 2 puff INHALATION RT-Q6H PRN 11/03/22 11/28/22 History Inhaler] Aspirin EC [Ecotrin Low Dose] 81 mg PO DAILY 11/03/22 11/28/22 History DULoxetine HCL [Cymbalta] 30 mg PO BID 11/03/22 11/28/22 History Ferrous Sulfate [Iron] 325 mg PO DAILY 11/03/22 11/28/22 History Fluticasone/Umeclidin/Vilanter 1 puff INHALATION RT-DAILY 11/03/22 11/28/22 History [Trelegy Ellipta 100-62.5-25] Metoprolol Tartrate [Lopressor] 25 mg PO BID 11/03/22 11/28/22 History Midodrine HCl 5 mg PO TID 11/03/22 11/28/22 History Potassium Chloride ER [K-Dur 20] 20 meq PO BID 11/03/22 11/28/22 History calcitrioL [Calcitriol] 0.25 mcg PO DAILY 11/03/22 11/28/22 History Budesonide [Pulmicort] 0.5 mg INHALATION RT-BID 11/28/22 11/28/22 History Cholestyramine (with Sugar) 4 gm PO BID 11/28/22 11/28/22 History [Cholestyramine Powder] Famotidine [Pepcid] 40 mg PO DAILY 11/28/22 11/28/22 History Ipratropium-Albuterol Nebulize 3 ml INHALATION RT-Q6H PRN 11/28/22 11/28/22 History [Duoneb 0.5 mg-3 mg/3 ml Soln] LORazepam [Ativan] 0.5 mg PO Q8HR PRN 11/28/22 11/28/22 History Ondansetron [Zofran] 4 mg PO Q6H PRN 11/28/22 11/28/22 History Pantoprazole Sodium [Protonix] 40 mg PO BID 11/28/22 11/28/22 History Rosuvastatin Calcium 5 mg PO HS 11/28/22 11/28/22 History lamoTRIgine [LaMICtal] 75 mg PO HS 11/28/22 11/28/22 History Allergies Allergy/AdvReac Type Severity Reaction Status Date / Time No Known Allergies Allergy Verified 11/28/22 15:42 Physical Exam Vitals: Vital Signs Temp Pulse Pulse Resp BP BP Pulse Ox 11/29/22 08:00 98.4 F 86 15 111/80 96 11/29/22 07:59 87 11/29/22 07:49 98 11/29/22 07:48 88 11/29/22 02:16 99.5 F 93 18 106/71 97 11/28/22 19:50 18 11/28/22 19:13 98.2 F 81 16 117/80 98 11/28/22 17:51 98.4 F 87 18 123/75 99 11/28/22 15:08 97 18 112/87 100 11/28/22 13:05 97.7 F 129 H 22 90/66 97 Intake and Output 11/28/22 11/29/22 11/29/22 22:59 06:59 14:59 Intake Total 1400 Balance 1400 Intake: Intake, IV Titration 1200 Amount Potassium Chloride 20 meq 300 In Water For Injection 1 100ml.bag @ 50 mls/hr IVPB Q1H [facility] Rx#: [id number] Sodium Chloride 0.9% 1, 900 000 ml @ 75 mls/hr IV . [id number] [facility] Rx#:[id number] Oral 200 Other: Voiding Method Toilet # Voids 2 Weight 47.627 kg Results - Lab Results Most recent lab results Calcium 8.5 mg/dL (8.4-10.2) 11/28/22 14:18 Magnesium 2.1 mg/dL (1.6-2.3) 11/28/22 14:18 11/29/22 10:31 11/28/22 23:24 Assessment and Plan Plan: Assessment: 1. Hypokalemia from poor intake and upper and lower GI losses. Magnesium normal on admission. Being replaced. 2. Pancreatic cancer with metastasis. Last chemotherapy 11/17/2022. 3. Hypovolemic hyponatremia. Plan: Maintain IV fluids. Follow-up morning labs. Encourage oral intake. Thank you for the consultation. I will continue to follow the patient with you during her hospital stay.
[2022-11-29 12:16] LABS: Band Neutrophils % 2 %; Eosinophils # (M) 0.09 k/uL (0-0.7); Lymphocytes # (M) 1.12 k/uL (1.0-4.8); Neutrophils % (M) 49 %; Nucleated Red Blood Cells 0 /100 WBC (0-0); Total Cells Counted 100
[2022-11-29 12:17] LABS: Platelet Count 61 k/uL (150-450); RBC Morphology Normal
--- NOTE | 2022-11-29 13:19 | P.HPIM ---
History of Present Illness H&P Date: 11/29/22 Luz Marina Mallory, he is a 57-year-old female who presented to [facility] emergency room with a chief complaint of severe generalized weakness, diarrhea, and dehydration was no urine output for the last 2 days. She was evaluated in the emergency room vital examination on presentation revealed a temperature of 97.7 heart rate 129 respiration 22 blood pressure 90/66 pulse ox 97% on room air Laboratory data revealed a white blood count of 1.6 hemoglobin 14.9 platelet count 50 INR 1.2 sodium 131 potassium 2.5 chloride 90 CO2 22 BUN 15 creatinine 0.59 Testing in the emergency room revealed chest x-ray done in the emergency room revealed no evidence for acute pulmonary disease, EKG done in the emergency room revealed sinus rhythm with frequent supraventricular premature complexes Patient was admitted to medical floor for further evaluation and treatment Past medical history is significant for history of pancreatic cancer with metastatic disease, patient was started on chemotherapy last month, history of asthma, history of gastroesophageal reflux disease, history of osteoarthritis, history of obstructive sleep apnea maintained on CPAP On review of systems at this time patient is alert and oriented 3 in no apparent distress, there is no fever or chills no headache or dizziness no chest pain, no shortness of breath no cough, she is still having some nausea no vomiting she is still having some diarrhea, there is no abdominal pain, no blood in the stools, she has burning with urination, she stated that she just started urinating, she had no urinary output for 2 days, there is no blood in the urine, she denies any weakness or numbness in any of the extremities there is no change in vision speech or gait. Past Medical History Past Medical History: Asthma, Cancer, COPD, GERD/Reflux, Memory Impairment, Musculoskeletal Disorder, Osteoarthritis (OA), Sleep Apnea/CPAP/BIPAP Additional Past Medical History / Comment(s): PT STATES SOME MEMORY PROBLEMS AND LEARNING DISABILITY, HAS FRIEND WHO HELPS HER WITH MEDICATIONS AND APPTS., STATES MUSCLE SPASMS, BACK PROBLEMS WITH DISC DISEASE, ANEMIA, URINARY URGENCY, PROBLEMS WITH DIARRHEA & CONSTIPATION.Pancreatic CA History of Any Multi-Drug Resistant Organisms: None Reported Past Surgical History: Section, Cholecystectomy, Hysterectomy Additional Past Surgical History / Comment(s): 2 C-SECTIONS, PARTIAL HYSTERECTOMY, BERNADETTE REMOVED. 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 Past Alcohol Use History: None Reported Past Drug Use History: None Reported - Past Family History Mother Family Medical History: Cancer Additional Family Medical History / Comment(s): LUNG AND BRAIN CA Medications and Allergies Home Medications Medication Instructions Recorded Confirmed Type Albuterol Inhaler [Ventolin Hfa 1 - 2 puff INHALATION RT-Q6H PRN 11/03/22 11/28/22 History Inhaler] Aspirin EC [Ecotrin Low Dose] 81 mg PO DAILY 11/03/22 11/28/22 History DULoxetine HCL [Cymbalta] 30 mg PO BID 11/03/22 11/28/22 History Ferrous Sulfate [Iron] 325 mg PO DAILY 11/03/22 11/28/22 History Fluticasone/Umeclidin/Vilanter 1 puff INHALATION RT-DAILY 11/03/22 11/28/22 History [Trelegy Ellipta 100-62.5-25] Metoprolol Tartrate [Lopressor] 25 mg PO BID 11/03/22 11/28/22 History Midodrine HCl 5 mg PO TID 11/03/22 11/28/22 History Potassium Chloride ER [K-Dur 20] 20 meq PO BID 11/03/22 11/28/22 History calcitrioL [Calcitriol] 0.25 mcg PO DAILY 11/03/22 11/28/22 History Budesonide [Pulmicort] 0.5 mg INHALATION RT-BID 11/28/22 11/28/22 History Cholestyramine (with Sugar) 4 gm PO BID 11/28/22 11/28/22 History [Cholestyramine Powder] Famotidine [Pepcid] 40 mg PO DAILY 11/28/22 11/28/22 History Ipratropium-Albuterol Nebulize 3 ml INHALATION RT-Q6H PRN 11/28/22 11/28/22 History [Duoneb 0.5 mg-3 mg/3 ml Soln] LORazepam [Ativan] 0.5 mg PO Q8HR PRN 11/28/22 11/28/22 History Ondansetron [Zofran] 4 mg PO Q6H PRN 11/28/22 11/28/22 History Pantoprazole Sodium [Protonix] 40 mg PO BID 11/28/22 11/28/22 History Rosuvastatin Calcium 5 mg PO HS 11/28/22 11/28/22 History lamoTRIgine [LaMICtal] 75 mg PO HS 11/28/22 11/28/22 History Allergies Allergy/AdvReac Type Severity Reaction Status Date / Time No Known Allergies Allergy Verified 11/28/22 15:42 Physical Exam Vitals: Vital Signs Temp Pulse Pulse Resp BP BP Pulse Ox 11/29/22 08:00 98.4 F 86 15 111/80 96 11/29/22 07:59 87 11/29/22 07:49 98 11/29/22 07:48 88 11/29/22 02:16 99.5 F 93 18 106/71 97 11/28/22 19:50 18 11/28/22 19:13 98.2 F 81 16 117/80 98 11/28/22 17:51 98.4 F 87 18 123/75 99 11/28/22 15:08 97 18 112/87 100 11/28/22 13:05 97.7 F 129 H 22 90/66 97 Intake and Output 11/28/22 11/29/22 11/29/22 22:59 06:59 14:59 Intake Total 1400 Balance 1400 Intake: Intake, IV Titration 1200 Amount Potassium Chloride 20 meq 300 In Water For Injection 1 100ml.bag @ 50 mls/hr IVPB Q1H [facility] Rx#: [id number] Sodium Chloride 0.9% 1, 900 000 ml @ 75 mls/hr IV . [id number] [facility] Rx#:[id number] Oral 200 Other: Voiding Method Toilet # Voids 2 Weight 47.627 kg In general patient is alert and oriented x 3 in no distress HEENT head normocephalic and atraumatic Neck is supple no JVD no goiter no lymphadenopathy no carotid bruit Chest examination is clear to auscultation no crackles no wheezing Cardiac exam reveals regular heart sounds S1 and S2 no gallops no murmurs Abdomen is soft nontender no organomegaly with normal bowel sounds Extremity exam reveals no edema no cyanosis or clubbing Neurological examination reveals no gross focal deficits Results CBC & Chem 7: 11/29/22 10:31 11/29/22 10:31 Labs: Abnormal Lab Results - Last 24 Hours (Table) 11/28/22 11/28/22 11/28/22 Range/Units 14:18 14:18 14:18 WBC 1.6 L (3.8-10.6) k/uL RBC 5.42 H (3.80-5.40) m/uL MCV 78.6 L (80.0-100.0) fL Plt Count 50 L D (150-450) k/uL Neutrophils # (Manual) 0.60 L (1.3-7.7) k/uL Lymphocytes # (Manual) 0.45 L (1.0-4.8) k/uL PT 12.5 H (9.0-12.0) sec INR 1.2 H (<1.2) Sodium 131 L (137-145) mmol/L Potassium 2.5 L* (3.5-5.1) mmol/L Chloride 90 L (98-107) mmol/L Glucose 102 H (74-99) mg/dL Total Bilirubin 1.4 H (0.2-1.3) mg/dL ALT 57 H (4-34) U/L Alkaline Phosphatase 140 H (38-126) U/L Total Protein 6.2 L (6.3-8.2) g/dL Albumin 3.4 L (3.5-5.0) g/dL Urine Appearance (Clear) Urine Protein (Negative) Urine Ketones (Negative) Urine Blood (Negative) Urine Nitrite (Negative) Urine WBC (0-5) /hpf Urine Bacteria (None) /hpf Urine Mucus (None) /hpf Urine Yeast (Budding) (None) /hpf 11/28/22 11/28/22 Range/Units 16:32 23:24 WBC (3.8-10.6) k/uL RBC (3.80-5.40) m/uL MCV (80.0-100.0) fL Plt Count (150-450) k/uL Neutrophils # (Manual) (1.3-7.7) k/uL Lymphocytes # (Manual) (1.0-4.8) k/uL PT (9.0-12.0) sec INR (<1.2) Sodium (137-145) mmol/L Potassium 2.9 L (3.5-5.1) mmol/L Chloride (98-107) mmol/L Glucose (74-99) mg/dL Total Bilirubin (0.2-1.3) mg/dL ALT (4-34) U/L Alkaline Phosphatase (38-126) U/L Total Protein (6.3-8.2) g/dL Albumin (3.5-5.0) g/dL Urine Appearance Cloudy H (Clear) Urine Protein 2+ H (Negative) Urine Ketones 3+ H (Negative) Urine Blood Small H (Negative) Urine Nitrite Positive H (Negative) Urine WBC 12 H (0-5) /hpf Urine Bacteria Many H (None) /hpf Urine Mucus Many H (None) /hpf Urine Yeast (Budding) Occasional H (None) /hpf Thrombosis Risk Factor Assmnt - Choose All That Apply Each Factor Represents 1 point: Age 41-60 years Thrombosis Risk Factor Assessment Total Risk Factor Score: 1 Thrombosis Risk Factor Assessment Level: Low Risk Assessment and Plan Plan: Dehydration, with severe electrolyte imbalance, with hyponatremia hypokalemia and hypomagnesemia Poor urinary output Evidence of urinary tract infection Leukopenia and thrombocytopenia likely related to chemotherapy Recent diagnosis with creatinine cancer with metastatic disease, patient was recently started on chemotherapy Underlying history of osteoarthritis Underlying history of obstructive sleep apnea maintained on CPAP At this time patient was admitted to medical floor She was started on IV fluid Electrolyte correction protocols She was also started on IV ceftriaxone for urinary tract infection Nephrology and oncology consultation was requested Will recheck labs in a.m. Will follow closely
[2022-11-29] MEDS: POTASSIUM CHLORIDE 10 MEQ in WATER FOR INJECTION 1 100ML.BAG IVPB SCH ×2 (14:15→15:45)
[2022-11-29] MEDS ORDERED: DIPHENOX-ATROP 2.5-0.025 MG 1 EACH TAB PO PRN (17:37)
--- NOTE | 2022-11-29 20:12 | P.CONS ---
History of Present Illness - Reason for Consult Consult date: 11/29/22 pancreatic adenocarcinoma Requesting physician: Franklyn Francois - Chief Complaint N,V,D - History of Present Illness Ms. Mallory is a pleasant female who is currently undergoing treatment for pancreatic adenocarcinoma with Oncologist Dr. Murray. She was initially evaluated by her PCP in 08/15 because of elevated liver enzymes. CT AP at [facility] [place] 08/27/22 showed post mastectomy changes, with prominent intra-and extrahepatic biliary ductal dilatation with focal tapering in the region of the head of the pancreas. CXR did not show any significant findings. She was sent to [facility], where she had ERCP with EUS on 09/01/22. 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 Stent was placed. EUS revealed a 3.1 x 2.2 cm mass with significant involvement of the portal vein. Case was presented at the [facility] tumor Board on 09/03/22 and she was deemed not to be a surgical candidate, systemic chemotherapy was recommended and she was referred to Dr. Murray. Pt could not keep her initial appointment on 09/15/22 as she developed vomiting of blood. EGD showed a mucosal erosion next to the stent, which was felt to be the cause. Hgb remained overall stable after a transient drop. She was discharged on PPI and was seen for initial consultation on 09/30/22. She had lost about 130lbs over the previous year, she reported heavy alcohol use, quitting in 2021. She had staging PET scan that showed no evidence of metastatic disease. She started FOLFIRINOX 11/03/22, she is s/p 2 cycles. Plan is to reassess her after some chemo to see if she becomes resectable. If not, chemo/XRT may be used. If pt is NOT a candidate for resection then, unfortunately, she will not be curable. She is currently admitted with c/o N,V,D, couldn't keep her meds down, stool was watery green. She was unable to keep much food or fluids down so she just became weaker. When seen today she reported feeling better, her stool if thicke r, she is on questran, c-diff was neg on 11/21, current stool studies pending. Her K+ was 2.9-she takes 40meq BID at home but, couldn't keep it down, she has been supplemented and K+ is 3.9 today. Her WBC on admit was 1.6, it is WNL today with normal ANC. Hgb stable. Plt 50,000, up to 61,000 today. Pt reported fever but nothing over 100F, no oral irritation, cough, SOB, her stomach is sore from vomiting but denies any unusual cramping or pain, no dysuria, hematuria, she did not see black or bloody stool. At baseline she uses walker 2/2 DJD Review of Systems 10 point ROS is neg except as stated in HPI Past Medical History Past Medical History: Asthma, Cancer, COPD, GERD/Reflux, Memory Impairment, Musculoskeletal Disorder, Osteoarthritis (OA), Sleep Apnea/CPAP/BIPAP Additional Past Medical History / Comment(s): PT STATES SOME MEMORY PROBLEMS AND LEARNING DISABILITY, HAS FRIEND WHO HELPS HER WITH MEDICATIONS AND APPTS., STATES MUSCLE SPASMS, BACK PROBLEMS WITH DISC DISEASE, ANEMIA, URINARY URGENCY, PROBLEMS WITH DIARRHEA & CONSTIPATION.Pancreatic CA History of Any Multi-Drug Resistant Organisms: None Reported Past Surgical History: Section, Cholecystectomy, Hysterectomy Additional Past Surgical History / Comment(s): 2 C-SECTIONS, PARTIAL HYSTERECTOMY, BERNADETTE REMOVED. 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 Past Alcohol Use History: Heavy (quit in 2021) Past Drug Use History: None Reported - Past Family History Mother Family Medical History: Cancer Additional Family Medical History / Comment(s): LUNG AND BRAIN CA Medications and Allergies Home Medications Medication Instructions Recorded Confirmed Type Albuterol Inhaler [Ventolin Hfa 1 - 2 puff INHALATION RT-Q6H PRN 11/03/22 11/28/22 History Inhaler] Aspirin EC [Ecotrin Low Dose] 81 mg PO DAILY 11/03/22 11/28/22 History DULoxetine HCL [Cymbalta] 30 mg PO BID 11/03/22 11/28/22 History Ferrous Sulfate [Iron] 325 mg PO DAILY 11/03/22 11/28/22 History Fluticasone/Umeclidin/Vilanter 1 puff INHALATION RT-DAILY 11/03/22 11/28/22 History [Trelegy Ellipta 100-62.5-25] Metoprolol Tartrate [Lopressor] 25 mg PO BID 11/03/22 11/28/22 History Midodrine HCl 5 mg PO TID 11/03/22 11/28/22 History Potassium Chloride ER [K-Dur 20] 20 meq PO BID 11/03/22 11/28/22 History calcitrioL [Calcitriol] 0.25 mcg PO DAILY 11/03/22 11/28/22 History Budesonide [Pulmicort] 0.5 mg INHALATION RT-BID 11/28/22 11/28/22 History Cholestyramine (with Sugar) 4 gm PO BID 11/28/22 11/28/22 History [Cholestyramine Powder] Famotidine [Pepcid] 40 mg PO DAILY 11/28/22 11/28/22 History Ipratropium-Albuterol Nebulize 3 ml INHALATION RT-Q6H PRN 11/28/22 11/28/22 History [Duoneb 0.5 mg-3 mg/3 ml Soln] LORazepam [Ativan] 0.5 mg PO Q8HR PRN 11/28/22 11/28/22 History Ondansetron [Zofran] 4 mg PO Q6H PRN 11/28/22 11/28/22 History Pantoprazole Sodium [Protonix] 40 mg PO BID 11/28/22 11/28/22 History Rosuvastatin Calcium 5 mg PO HS 11/28/22 11/28/22 History lamoTRIgine [LaMICtal] 75 mg PO HS 11/28/22 11/28/22 History Allergies Allergy/AdvReac Type Severity Reaction Status Date / Time No Known Allergies Allergy Verified 11/28/22 15:42 Physical Exam Vitals: Vital Signs Temp Pulse Pulse Resp BP BP Pulse Ox 11/29/22 08:00 98.4 F 86 15 111/80 96 11/29/22 07:59 87 11/29/22 07:49 98 11/29/22 07:48 88 11/29/22 02:16 99.5 F 93 18 106/71 97 11/28/22 19:50 18 11/28/22 19:13 98.2 F 81 16 117/80 98 11/28/22 17:51 98.4 F 87 18 123/75 99 11/28/22 15:08 97 18 112/87 100 11/28/22 13:05 97.7 F 129 H 22 90/66 97 Intake and Output 11/28/22 11/29/22 11/29/22 22:59 06:59 14:59 Intake Total 1400 Balance 1400 Intake: Intake, IV Titration 1200 Amount Potassium Chloride 20 meq 300 In Water For Injection 1 100ml.bag @ 50 mls/hr IVPB Q1H [facility] Rx#: [id number] Sodium Chloride 0.9% 1, 900 000 ml @ 75 mls/hr IV . [id number] [facility] Rx#:[id number] Oral 200 Other: Voiding Method Toilet # Voids 2 Weight 47.627 kg - Constitutional General appearance: average body habitus, cooperative, no acute distress - EENT Eyes: anicteric sclerae, EOMI ENT: hearing grossly normal, normal oropharynx - Neck Neck: no lymphadenopathy - Respiratory Respiratory: bilateral: CTA - Cardiovascular Rhythm: regular Heart sounds: normal: S1, S2 Abnormal Heart Sounds: no systolic murmur, no diastolic murmur, no rub, no S3 Gallop, no S4 Gallop, no click, no other leg Peripheral Edema: bilateral: None - Gastrointestinal General gastrointestinal: no absent bowel sounds, decreased bowel sounds, no distended, no hepatomegaly, no hyperactive bowel sounds, no normal bowel sounds, no organomegaly, no rigid, no scaphoid, soft, no splenomegaly, tenderness (mild, generalized, no rebound), no umbilical hernia, no ventral hernia - Integumentary Integumentary: normal - Neurologic Neurologic: CNII-XII intact (grossly) - Musculoskeletal uses wheeled walker 2/2 DJD - Psychiatric Psychiatric: A&O x's 3, appropriate affect, intact judgment & insight Results CBC & Chem 7: 11/29/22 10:31 11/29/22 10:31 Labs: Abnormal Lab Results - Last 24 Hours (Table) 11/28/22 11/28/22 11/28/22 Range/Units 14:18 14:18 14:18 WBC 1.6 L (3.8-10.6) k/uL RBC 5.42 H (3.80-5.40) m/uL MCV 78.6 L (80.0-100.0) fL Plt Count 50 L D (150-450) k/uL Neutrophils # (Manual) 0.60 L (1.3-7.7) k/uL Lymphocytes # (Manual) 0.45 L (1.0-4.8) k/uL PT 12.5 H (9.0-12.0) sec INR 1.2 H (<1.2) Sodium 131 L (137-145) mmol/L Potassium 2.5 L* (3.5-5.1) mmol/L Chloride 90 L (98-107) mmol/L Glucose 102 H (74-99) mg/dL Total Bilirubin 1.4 H (0.2-1.3) mg/dL ALT 57 H (4-34) U/L Alkaline Phosphatase 140 H (38-126) U/L Total Protein 6.2 L (6.3-8.2) g/dL Albumin 3.4 L (3.5-5.0) g/dL Urine Appearance (Clear) Urine Protein (Negative) Urine Ketones (Negative) Urine Blood (Negative) Urine Nitrite (Negative) Urine WBC (0-5) /hpf Urine Bacteria (None) /hpf Urine Mucus (None) /hpf Urine Yeast (Budding) (None) /hpf 11/28/22 11/28/22 11/29/22 Range/Units 16:32 23:24 10:31 WBC (3.8-10.6) k/uL RBC (3.80-5.40) m/uL MCV 79.5 L (80.0-100.0) fL Plt Count 61 L (150-450) k/uL Neutrophils # (Manual) (1.3-7.7) k/uL Lymphocytes # (Manual) (1.0-4.8) k/uL PT (9.0-12.0) sec INR (<1.2) Sodium (137-145) mmol/L Potassium 2.9 L (3.5-5.1) mmol/L Chloride (98-107) mmol/L Glucose (74-99) mg/dL Total Bilirubin (0.2-1.3) mg/dL ALT (4-34) U/L Alkaline Phosphatase (38-126) U/L Total Protein (6.3-8.2) g/dL Albumin (3.5-5.0) g/dL Urine Appearance Cloudy H (Clear) Urine Protein 2+ H (Negative) Urine Ketones 3+ H (Negative) Urine Blood Small H (Negative) Urine Nitrite Positive H (Negative) Urine WBC 12 H (0-5) /hpf Urine Bacteria Many H (None) /hpf Urine Mucus Many H (None) /hpf Urine Yeast (Budding) Occasional H (None) /hpf Chest x-ray: report reviewed Assessment and Plan (1) Primary pancreatic adenocarcinoma Current Visit: Yes Status: Acute Priority: High Code(s): C25.9 - MALIGNANT NEOPLASM OF PANCREAS, UNSPECIFIED SNOMED Code(s): 3897745476732 (2) Chemotherapy induced nausea and vomiting Current Visit: Yes Status: Acute Priority: High Code(s): R11.2 - NAUSEA WITH VOMITING, UNSPECIFIED; T45.1X5A - ADVERSE EFFECT OF ANTINEOPLASTIC AND IMM UNOSUP DRUGS, INIT SNOMED Code(s): 52126953 (3) Diarrhea Current Visit: Yes Status: Acute Priority: High Code(s): R19.7 - DIARRHEA, UNSPECIFIED SNOMED Code(s): 86923721 (4) Hypokalemia Current Visit: Yes Status: Acute Priority: High Code(s): E87.6 - HYPOKALEMIA SNOMED Code(s): 58279557 Plan: Pancreatic adenocarcinoma -On 11/04 Dr. Murray reviewed with the pt that PET scan showed no evidence of metastatic disease. On initial evaluation at [facility] pt was deemed not resectable. Treatment intent without resection is not likely to be curable. She has been started on systemic therapy. Local radiation with concurrent low-dose chemotherapy can be considered as part of her regimen if she tolerated-which she has not thus far. Doses will require adjustment. If she does have a good response to systemic chemotherapy, then she can be reevaluated for resectability. -Pt has received hydration through the ofc outpt, she has had additional suppo rtive meds ordered as well. -She is due for cycle 3 Thursday, this will have to be delayed until she has recovered from her current symptoms and a little stronger -May have to consider a dose adjustment Chemo induced N,V,D -2/2 chemo -Improvement in N,V with hydration, antiemetics -Confirmed with pt she has antiemetics at home -C-diff 11/21 was neg, pending current study -Questran ordered Electrolyte abnormalities -2/2 poor oral intake, N,V,D -Parenteral supplements ordered -Pt has oral supplements at home
[2022-11-29] MEDS: lamoTRIgine 25 MG TAB PO SCH (21:46)
[2022-11-29] MEDS: ATORVASTATIN 10 MG TAB PO SCH (21:46)
[2022-11-30] MEDS: ONDANSETRON 4 MG/2 ML VIAL IVP PRN ×2 (05:58→21:32)
[2022-11-30] MEDS: SODIUM CHLORIDE 0.9% 1,000 ML IV SCH ×2 (06:00→19:39)
[2022-11-30 07:22] LABS: ALT 38 U/L (4-34); AST 28 U/L (14-36); African American GFR (CKD) >90 (>60 ml/min/1.73 sqM); Albumin 2.5 g/dL (3.5-5.0); Alkaline Phosphatase 107 U/L (38-126); Anion Gap 8 mmol/L; Blood Urea Nitrogen 9 mg/dL (7-17); Calcium 8.2 mg/dL (8.4-10.2); Carbon Dioxide 23 mmol/L (22-30); Chloride 106 mmol/L (98-107); Globulin 2.4 g/dL; Glucose 98 mg/dL (74-99); Non-African American GFR(CKD) >90 (>60 ml/min/1.73 sqM); Potassium 4.2 mmol/L (3.5-5.1); Sodium 137 mmol/L (137-145); Total Bilirubin 0.5 mg/dL (0.2-1.3); Total Protein 4.9 g/dL (6.3-8.2)
[2022-11-30 07:29] LABS: HCT 27.1 % (34.0-46.0); MCH 27.5 pg (25.0-35.0); MCHC 34.8 g/dL (31.0-37.0); MCV 79.1 fL (80.0-100.0); Mean Platelet Volume 9.5; RBC 3.43 m/uL (3.80-5.40); RDW 13.9 % (11.5-15.5); WBC 8.2 k/uL (3.8-10.6)
[2022-11-30 07:42] LABS: HGB 9.4 gm/dL (11.4-16.0)
[2022-11-30] MEDS: BUDESONIDE 0.5 MG/2 ML NEBU INHALATION SCH ×2 (07:43→18:22)
[2022-11-30] MEDS: SYMBICORT 80-4.5 MCG INHALER INHALATION SCH ×2 (07:43→18:22)
[2022-11-30] MEDS: IPRATROPIUM 0.5 MG/2.5 ML NEBU INHALATION SCH ×4 (07:44→18:22)
[2022-11-30 07:57] LABS: Nucleated Red Blood Cells 0 /100 WBC (0-0); Platelet Count 97 k/uL (150-450)
[2022-11-30] MEDS: POTASSIUM CHLORIDE ER 20 MEQ TAB.ER PO SCH ×2 (08:28→21:32)
[2022-11-30] MEDS: ASPIRIN 81 MG PO SCH (08:28)
[2022-11-30] MEDS: METOPROLOL TARTRATE 25 MG TAB PO SCH ×2 (08:28→21:32)
[2022-11-30] MEDS: FERROUS SULFATE 325 MG TAB PO SCH (08:28)
[2022-11-30] MEDS: MIDODRINE 5 MG TAB PO SCH ×3 (08:28→21:32)
[2022-11-30] MEDS: FAMOTIDINE 20 MG TAB PO SCH (08:28)
[2022-11-30] MEDS: DULoxetine HCL 30 MG CAPSULE.DR PO SCH ×2 (08:28→21:32)
[2022-11-30] MEDS: PANTOPRAZOLE 40 MG TABLET PO SCH ×2 (08:28→17:21)
[2022-11-30] MEDS: CHOLESTYRAMINE (WITH SUGAR) 4 GM PACKET PO SCH ×2 (08:29→21:32)
[2022-11-30 09:22] LABS: Blast Cells # (M) 0.16 k/uL (0)
--- NOTE | 2022-11-30 10:52 | P.PN ---
Subjective Patient is seen in follow-up for hypokalemia. Potassium level normal today. Continues to have vomiting or diarrhea. Receiving IV fluids. GFR at baseline. Vital signs are stable. General: No acute distress. HEENT: Head exam is unremarkable. LUNGS: No audible rhonchi or wheezes. HEART: Rate and Rhythm are regular. ABDOMEN: Nontender. EXTREMITITES: No edema. Objective - Vital Signs Vital signs: Vital Signs Temp 97.4 F L 11/30/22 08:00 Pulse 76 11/30/22 08:00 Resp 16 11/30/22 08:00 BP 118/87 11/30/22 08:00 Pulse Ox 99 11/30/22 08:00 FiO2 Intake & Output 11/29/22 11/30/22 11/30/22 18:59 06:59 18:59 Intake Total 1150 1400 Output Total 5 Balance 1150 1395 Intake: Intake, IV Titration 1150 900 Amount Potassium Chloride 10 meq 200 In Water For Injection 1 100ml.bag @ 100 mls/hr IVPB Q1H [facility] Rx#: [id number] Sodium Chloride 0.9% 1, 900 900 000 ml @ 75 mls/hr IV . [id number] [facility] Rx#:[id number] cefTRIAXone 1 gm In 50 Sodium Chloride 0.9% 50 ml @ 100 mls/hr IVPB Q24HR [facility] Rx#:[id number] Oral 500 Output: Urine 3 Stool 2 Other: Voiding Method Toilet Toilet Toilet - Labs CBC & Chem 7: 11/30/22 06:17 11/30/22 06:17 Labs: Abnormal Lab Results - Last 24 Hours (Table) 11/29/22 11/29/22 11/30/22 Range/Units 10:31 10:31 06:17 RBC 3.43 L (3.80-5.40) m/uL Hgb 9.4 L D (11.4-16.0) gm/dL Hct 27.1 L (34.0-46.0) % MCV 79.5 L 79.1 L (80.0-100.0) fL Plt Count 61 L (150-450) k/uL Sodium 135 L (137-145) mmol/L Carbon Dioxide 16 L (22-30) mmol/L Creatinine 0.46 L (0.52-1.04) mg/dL Glucose 112 H (74-99) mg/dL Calcium 7.9 L (8.4-10.2) mg/dL ALT (4-34) U/L Total Protein (6.3-8.2) g/dL Albumin (3.5-5.0) g/dL 11/30/22 Range/Units 06:17 RBC (3.80-5.40) m/uL Hgb (11.4-16.0) gm/dL Hct (34.0-46.0) % MCV (80.0-100.0) fL Plt Count (150-450) k/uL Sodium (137-145) mmol/L Carbon Dioxide (22-30) mmol/L Creatinine 0.48 L (0.52-1.04) mg/dL Glucose (74-99) mg/dL Calcium 8.2 L (8.4-10.2) mg/dL ALT 38 H (4-34) U/L Total Protein 4.9 L (6.3-8.2) g/dL Albumin 2.5 L (3.5-5.0) g/dL Assessment and Plan Plan: Assessment: 1. Hypokalemia from poor intake and upper and lower GI losses. Magnesium normal on admission. Replace. Improved. 2. Pancreatic cancer with metastasis. Last chemotherapy 11/17/2022. 3. Hypovolemic hyponatremia. Improved with IV hydration. Plan: Maintain IV fluids. Encourage oral intake.
--- NOTE | 2022-11-30 12:21 | P.PN ---
Subjective Progress Note Date: 11/30/22 Principal diagnosis: N,V,D, pancreatic adenocarcinoma on treatment In follow-up today patient is reporting in general not feeling well, hiccups, nausea, no vomiting so far today, complaints of discomfort in the epigastric area as well as the lower abdomen, she reports diarrhea is a little bit better since admit, stool specimen has been collected. Objective - Vital Signs Vital signs: Vital Signs Temp 97.4 F L 11/30/22 08:00 Pulse 76 11/30/22 08:00 Resp 16 11/30/22 08:00 BP 118/87 11/30/22 08:00 Pulse Ox 99 11/30/22 08:00 FiO2 Intake & Output 11/29/22 11/30/22 11/30/22 18:59 06:59 18:59 Intake Total 1150 1400 Output Total 5 Balance 1150 1395 Intake: Intake, IV Titration 1150 900 Amount Potassium Chloride 10 meq 200 In Water For Injection 1 100ml.bag @ 100 mls/hr IVPB Q1H [facility] Rx#: [id number] Sodium Chloride 0.9% 1, 900 900 000 ml @ 75 mls/hr IV . [id number] [facility] Rx#:[id number] cefTRIAXone 1 gm In 50 Sodium Chloride 0.9% 50 ml @ 100 mls/hr IVPB Q24HR [facility] Rx#:[id number] Oral 500 Output: Urine 3 Stool 2 Other: Voiding Method Toilet Toilet Toilet - Constitutional General appearance: Present: average body habitus, cooperative, no acute distress - EENT Eyes: Present: anicteric sclerae, edentulous, EOMI ENT: Present: hearing grossly normal - Respiratory Details: Respirations even and unlabored at rest - Cardiovascular Details: Skin warm and dry to the touch - Gastrointestinal General gastrointestinal: Present: soft, tenderness Localized gastrointestinal: tender: epigastric periumbilical - Neurologic Neurologic: Present: CNII-XII intact (Grossly) - Psychiatric Psychiatric: Present: A&O x's 3, appropriate affect, intact judgment & insight - Labs CBC & Chem 7: 11/30/22 06:17 11/30/22 06:17 Labs: Abnormal Lab Results - Last 24 Hours (Table) 11/29/22 11/30/22 11/30/22 Range/Units 10:31 06:17 06:17 RBC 3.43 L (3.80-5.40) m/uL Hgb 9.4 L D (11.4-16.0) gm/dL Hct 27.1 L (34.0-46.0) % MCV 79.1 L (80.0-100.0) fL Plt Count 61 L (150-450) k/uL Creatinine 0.48 L (0.52-1.04) mg/dL Calcium 8.2 L (8.4-10.2) mg/dL ALT 38 H (4-34) U/L Total Protein 4.9 L (6.3-8.2) g/dL Albumin 2.5 L (3.5-5.0) g/dL Assessment and Plan (1) Primary pancreatic adenocarcinoma Current Visit: Yes Status: Acute Priority: High Code(s): C25.9 - MALIGNANT NEOPLASM OF PANCREAS, UNSPECIFIED SNOMED Code(s): 9189149784211 (2) Chemotherapy induced nausea and vomiting Current Visit: Yes Status: Acute Priority: High Code(s): R11.2 - NAUSEA WITH VOMITING, UNSPECIFIED; T45.1X5A - ADVERSE EFFECT OF ANTINEOPLASTIC AND IMMUNOSUP DRUGS, INIT SNOMED Code(s): 63416830 (3) Diarrhea Current Visit: Yes Status: Acute Priority: High Code(s): R19.7 - DIARRHEA, UNSPECIFIED SNOMED Code(s): 09095902 (4) Hypokalemia Current Visit: Yes Status: Acute Priority: High Code(s): E87.6 - HYPOKA LEMIA SNOMED Code(s): 55332502 Plan: Pancreatic adenocarcinoma -On 11/04 Dr. Murray reviewed with the pt that PET scan showed no evidence of metast atic disease. On initial evaluation at [facility] pt was deemed not resectable. Treatment intent, without resection, is not likely to be curable. She has been started on systemic therapy. Local radiation with concurrent low-dose chemotherapy can be considered as part of her regimen if she tolerates chemo- which she has not thus far-was another option, intent would be definitive treatment. Alternatively, if she has a good response to systemic chemotherapy, then she can be reevaluated for resectability. -Orders sent for chemotherapy dose adjustment. Next week's chemotherapy treatment has been ordered to be held. Chemo induced N,V,D -2/2 chemo -Improvement in N,V with hydration, antiemetics. She is complaining of epigastric/periumbilical discomfort today. -Patient reports following with gastroenterology for GERD. Added Carafate for symptoms today. -Confirmed with pt she has antiemetics at home -C-diff 11/21 was neg, pending current study -Questran ordered-patient reporting improvement and stool consistency and decreased frequency today. Electrolyte abnormalities -2/2 poor oral intake, N,V,D -Parenteral supplements ordered, labs today show normal magnesium and potassium levels -Pt has oral supplements at home Anemia, thrombocytopenia -Most likely secondary to chemotherapy, no reports of bleeding, hematemesis, hematochezia or melena -Hemoglobin 9.4 today, no transfusion at this time. CBC in the a.m. -Pending platelet value for today. Transfused for platelets less than 10,000 or if symptomatic -Hold aspirin for now
--- NOTE | 2022-11-30 12:48 | P.PN ---
Subjective Progress Note Date: 11/30/22 Luz Marina Mallory, he is a 57-year-old female who presented to [facility] emergency room with a chief complaint of severe generalized weakness, diarrhea, and dehydration was no urine output for the last 2 days. She was evaluated in the emergency room vital examination on presentation re vealed a temperature of 97.7 heart rate 129 respiration 22 blood pressure 90/66 pulse ox 97% on room air Laboratory data revealed a white blood count of 1.6 hemoglobin 14.9 platelet count 50 INR 1.2 sodium 131 potassium 2.5 chloride 90 CO2 22 BUN 15 creatinine 0.59 Testing in the emergency room revealed chest x-ray done in the emergency room revealed no evidence for acute pulmonary disease, EKG done in the emergency room revealed sinus rhythm with frequent supraventricular premature complexes Patient was admitted to medical floor for further evaluation and treatment Past medical history is significant for history of pancreatic cancer with metastatic disease, patient was started on chemotherapy last month, history of asthma, history of gastroesophageal reflux disease, history of osteoarthritis, history of obstructive sleep apnea maintained on CPAP On review of systems at this time patient is alert and oriented 3 in no apparent distress, there is no fever or chills no headache or dizziness no chest pain, no shortness of breath no cough, she is still having some nausea no vomiting she is still having some diarrhea, there is no abdominal pain, no blood in the stools, she has burning with urination, she stated that she just started urinating, she had no urinary output for 2 days, there is no blood in the urine, she denies any weakness or numbness in any of the extremities there is no change in vision speech or gait. On 11/30/2022 patient was seen and examined on the medical floor she is alert and oriented 3 in no apparent distress, she is still complaining of poor appetite and very poor oral intake, she is complaining of nausea vomiting and diarrhea, stools for C. diff were ordered results are still pending, vital exam reveals a temperature of 97.4 pulse 76 respiration 16 blood pressure 118/87 pulse ox 99% on room air white blood count is 8.2 hemoglobin 9.4 platelet count still pending Objective - Vital Signs Vital signs: Vital Signs Temp 98.5 F 11/30/22 02:14 Pulse 71 11/30/22 02:14 Resp 16 11/30/22 02:14 BP 105/73 11/30/22 02:14 Pulse Ox 96 11/30/22 07:44 FiO2 Intake & Output 11/29/22 11/30/22 11/30/22 18:59 06:59 18:59 Intake Total 1150 1400 Output Total 5 Balance 1150 1395 Intake: Intake, IV Titration 1150 900 Amount Potassium Chloride 10 meq 200 In Water For Injection 1 100ml.bag @ 100 mls/hr IVPB Q1H [facility] Rx#: [id number] Sodium Chloride 0.9% 1, 900 900 000 ml @ 75 mls/hr IV . [id number] [facility] Rx#:[id number] cefTRIAXone 1 gm In 50 Sodium Chloride 0.9% 50 ml @ 100 mls/hr IVPB Q24HR [facility] Rx#:[id number] Oral 500 Output: Urine 3 Stool 2 Other: Voiding Method Toilet Toilet Toilet - Exam In general patient is alert and oriented x 3 in no distress HEENT head normocephalic and atraumatic Neck is supple no JVD no goiter no lymphadenopathy no carotid bruit Chest examination is clear to auscultation no crackles no wheezing Cardiac exam reveals regular heart sounds S1 and S2 no gallops no murmurs Abdomen is soft nontender no organomegaly with normal bowel sounds Extremity exam reveals no edema no cyanosis or clubbing Neurological examination reveals no gross focal deficits - Labs CBC & Chem 7: 11/30/22 06:17 11/30/22 06:17 Labs: Abnormal Lab Results - Last 24 Hours (Table) 11/29/22 11/29/22 11/30/22 Range/Units 10:31 10:31 06:17 RBC 3.43 L (3.80-5.40) m/uL Hgb 9.4 L D (11.4-16.0) gm/dL Hct 27.1 L (34.0-46.0) % MCV 79.5 L 79.1 L (80.0-100.0) fL Plt Count 61 L (150-450) k/uL Sodium 135 L (137-145) mmol/L Carbon Dioxide 16 L (22-30) mmol/L Creatinine 0.46 L (0.52-1.04) mg/dL Glucose 112 H (74-99) mg/dL Calcium 7.9 L (8.4-10.2) mg/dL ALT (4-34) U/L Total Protein (6.3-8.2) g/dL Albumin (3.5-5.0) g/dL 11/30/22 Range/Units 06:17 RBC (3.80-5.40) m/uL Hgb (11.4-16.0) gm/dL Hct (34.0-46.0) % MCV (80.0-100.0) fL Plt Count (150-450) k/uL Sodium (137-145) mmol/L Carbon Dioxide (22-30) mmol/L Creatinine 0.48 L (0.52-1.04) mg/dL Glucose (74-99) mg/dL Calcium 8.2 L (8.4-10.2) mg/dL ALT 38 H (4-34) U/L Total Protein 4.9 L (6.3-8.2) g/dL Albumin 2.5 L (3.5-5.0) g/dL Assessment and Plan Plan: Dehydration, with severe electrolyte imbalance, with hyponatremia hypokalemia and hypomagnesemia Poor urinary output Evidence of urinary tract infection Leukopenia and thrombocytopenia likely related to chemotherapy Recent diagnosis with creatinine cancer with metastatic disease, patient was recently started on chemotherapy Underlying history of osteoarthritis Underlying history of obstructive sleep apnea maintained on CPAP At this time patient was admitted to medical floor She was started on IV fluid Electrolyte correction protocols She was also started on IV ceftriaxone for urinary tract infection Nephrology and oncology consultation was requested Will recheck labs in a.m. Will follow closely
[2022-11-30] MEDS: SUCRALFATE 1 GM TAB PO SCH ×3 (14:09→17:21)
[2022-11-30] MEDS ORDERED: ACETAMINOPHEN TAB 325 MG TAB PO PRN (14:41)
[2022-11-30] MEDS: lamoTRIgine 25 MG TAB PO SCH (21:32)
[2022-11-30] MEDS: ATORVASTATIN 10 MG TAB PO SCH (21:32)
[2022-12-01] MEDS: SODIUM CHLORIDE 0.9% 1,000 ML IV SCH ×2 (05:30→16:49)
[2022-12-01 07:21] LABS: Band Neutrophils % 8 %; Eosinophils # (M) 0.08 k/uL (0-0.7); Lymphocytes # (M) 1.31 k/uL (1.0-4.8); Metamyelocytes # (M) 0.41 k/uL (0); Metamyelocytes % 5 %; Monocytes # (M) 0.66 k/uL (0-1.0); Neutrophils % (M) 55 %; Promyelocytes # (M) 0.08 k/uL (0); Promyelocytes % 1 %; Total Cells Counted 200
[2022-12-01 07:23] LABS: Myelocytes # (M) 0.49 k/uL (0); Myelocytes % 6 %
[2022-12-01 07:25] LABS: Other Cells % 0.5 %
[2022-12-01 08:01] LABS: HCT 30.3 % (34.0-46.0); HGB 10.4 gm/dL (11.4-16.0); MCH 27.8 pg (25.0-35.0); MCHC 34.3 g/dL (31.0-37.0); MCV 81.2 fL (80.0-100.0); Mean Platelet Volume 9.9; RBC 3.73 m/uL (3.80-5.40); RDW 14.1 % (11.5-15.5); WBC 9.9 k/uL (3.8-10.6)
[2022-12-01 08:02] LABS: ALT 25 U/L (4-34); AST 22 U/L (14-36); African American GFR (CKD) >90 (>60 ml/min/1.73 sqM); Albumin 2.1 g/dL (3.5-5.0); Albumin/Globulin Ratio 1.1; Alkaline Phosphatase 80 U/L (38-126); Anion Gap 6 mmol/L; Blood Urea Nitrogen 9 mg/dL (7-17); Calcium 7.4 mg/dL (8.4-10.2); Carbon Dioxide 19 mmol/L (22-30); Chloride 110 mmol/L (98-107); Glucose 77 mg/dL (74-99); Magnesium 1.8 mg/dL (1.6-2.3); Non-African American GFR(CKD) >90 (>60 ml/min/1.73 sqM); Potassium 3.7 mmol/L (3.5-5.1); Sodium 135 mmol/L (137-145); Total Bilirubin 0.4 mg/dL (0.2-1.3); Total Protein 4.1 g/dL (6.3-8.2)
[2022-12-01 08:14] LABS: Platelet Count 82 k/uL (150-450)
[2022-12-01] MEDS: METOPROLOL TARTRATE 25 MG TAB PO SCH ×2 (08:32→20:53)
[2022-12-01] MEDS: SUCRALFATE 1 GM TAB PO SCH ×3 (08:32→16:47)
[2022-12-01] MEDS: MIDODRINE 5 MG TAB PO SCH ×3 (08:32→21:25)
[2022-12-01] MEDS: POTASSIUM CHLORIDE ER 20 MEQ TAB.ER PO SCH ×2 (08:32→20:53)
[2022-12-01] MEDS: DULoxetine HCL 30 MG CAPSULE.DR PO SCH ×2 (08:32→20:53)
[2022-12-01] MEDS: FAMOTIDINE 20 MG TAB PO SCH (08:32)
[2022-12-01] MEDS: PANTOPRAZOLE 40 MG TABLET PO SCH ×2 (08:32→16:47)
[2022-12-01] MEDS: FERROUS SULFATE 325 MG TAB PO SCH (08:32)
[2022-12-01] MEDS: CHOLESTYRAMINE (WITH SUGAR) 4 GM PACKET PO SCH ×2 (08:34→20:46)
[2022-12-01] MEDS: SYMBICORT 80-4.5 MCG INHALER INHALATION SCH ×2 (08:35→18:16)
[2022-12-01] MEDS: IPRATROPIUM 0.5 MG/2.5 ML NEBU INHALATION SCH ×4 (08:35→18:16)
[2022-12-01 08:42] LABS: Band Neutrophils % 8 %; Lymphocytes # (M) 1.39 k/uL (1.0-4.8); Metamyelocytes % 4 %; Monocytes # (M) 0.59 k/uL (0-1.0); Myelocytes # (M) 0.79 k/uL (0); Myelocytes % 8 %; Neutrophils % (M) 58 %; Nucleated Red Blood Cells 0 /100 WBC (0-0); Promyelocytes % 2 %; Total Cells Counted 200
[2022-12-01 08:43] LABS: Poikilocytosis (M) Present; Polychromasia Present
[2022-12-01] MEDS: ONDANSETRON 4 MG/2 ML VIAL IVP PRN (11:29)
--- NOTE | 2022-12-01 12:02 | P.PN ---
Subjective Patient is seen for follow-up for hyperkalemia. No significant complaints today Serum creatinine is 0.45. Tolerating oral intake. Occasional vomiting and nausea still persists. Maintained on IV fluids. Objective - Vital Signs Vital signs: Vital Signs Temp 98.4 F 12/01/22 11:37 Pulse 70 12/01/22 11:58 Resp 18 12/01/22 11:37 BP 116/74 12/01/22 11:37 Pulse Ox 97 12/01/22 11:37 FiO2 Intake & Output 11/30/22 12/01/22 12/01/22 18:59 06:59 18:59 Intake Total 950 1400 Balance 950 1400 Intake: Intake, IV Titration 950 900 Amount Sodium Chloride 0.9% 1, 900 900 000 ml @ 75 mls/hr IV . [id number] [facility] Rx#:[id number] cefTRIAXone 1 gm In 50 Sodium Chloride 0.9% 50 ml @ 100 mls/hr IVPB Q24HR [facility] Rx#:[id number] Oral 500 Other: Voiding Method Toilet Toilet # Voids 1 1 # Bowel Movements 1 1 - Exam Patient is awake, comfortable, no acute distress Examination of the heart S1 and S2 Examination lungs bilateral breath sounds are heard Abdomen is soft nontender Exertion lower extremity shows no evidence of edema SR ACCOUNT EXECUTIVE exam grossly intact - Labs CBC & Chem 7: 12/01/22 06:32 12/01/22 06:32 Labs: Abnormal Lab Results - Last 24 Hours (Table) 11/30/22 11/30/22 12/01/22 Range/Units 06:17 09:17 06:32 RBC (3.80-5.40) m/uL Hgb (11.4-16.0) gm/dL Hct (34.0-46.0) % Plt Count 97 L D (150-450) k/uL Blast Cells % 2 H* % Metamyelocytes # (Man) 0.41 H (0) k/uL Myelocytes # (Manual) 0.49 H (0) k/uL Promyelocytes # (Man) 0.08 H (0) k/uL Blast Cells # (Man) 0.16 H (0) k/uL Sodium 135 L (137-145) mmol/L Chloride 110 H (98-107) mmol/L Carbon Dioxide 19 L (22-30) mmol/L Creatinine 0.45 L (0.52-1.04) mg/dL Calcium 7.4 L (8.4-10.2) mg/dL Total Protein 4.1 L (6.3-8.2) g/dL Albumin 2.1 L (3.5-5.0) g/dL Stool Occult Blood Positive H (Negative) 12/01/22 Range/Units 06:32 RBC 3.73 L (3.80-5.40) m/uL Hgb 10.4 L (11.4-16.0) gm/dL Hct 30.3 L (34.0-46.0) % Plt Count 82 L (150-450) k/uL Blast Cells % 1 H* % Metamyelocytes # (Man) 0.40 H (0) k/uL Myelocytes # (Manual) 0.79 H (0) k/uL Promyelocytes # (Man) 0.20 H (0) k/uL Blast Cells # (Man) 0.10 H (0) k/uL Sodium (137-145) mmol/L Chloride (98-107) mmol/L Carbon Dioxide (22-30) mmol/L Creatinine (0.52-1.04) mg/dL Calcium (8.4-10.2) mg/dL Total Protein (6.3-8.2) g/dL Albumin (3.5-5.0) g/dL Stool Occult Blood (Negative) Assessment and Plan Assessment: 1. Hypokalemia from poor intake and upper and lower GI losses. Magnesium normal on admission. Replace. Improved. 2. Pancreatic cancer with metastasis. Last chemotherapy 11/17/2022. 3. Hypovolemic hyponatremia. Improved with IV hydration.
[2022-12-01] MEDS ORDERED: HYDROcodone/APAP 5-325MG 1 EACH TAB PO PRN (12:06)
--- NOTE | 2022-12-01 14:42 | P.PN ---
Subjective Progress Note Date: 12/01/22 Principal diagnosis: pancreatic cancer, n/v Patient is reporting worsening nausea vomiting today. Some improvement with antiemetics. Also reporting intermittent abdominal pain. Diarrhea persisting. She was unable to tolerate Questran today due to nausea vomiting. Denies any reported episodes of acute bleeding. Hemoglobin stable at 10.4, platelets 82,000. Objective - Vital Signs Vital signs: Vital Signs Temp 98.4 F 12/01/22 11:37 Pulse 70 12/01/22 11:58 Resp 18 12/01/22 11:37 BP 116/74 12/01/22 11:37 Pulse Ox 97 12/01/22 11:37 FiO2 Intake & Output 11/30/22 12/01/22 12/01/22 18:59 06:59 18:59 Intake Total 950 1400 Balance 950 1400 Intake: Intake, IV Titration 950 900 Amount Sodium Chloride 0.9% 1, 900 900 000 ml @ 75 mls/hr IV . [id number] [facility] Rx#:[id number] cefTRIAXone 1 gm In 50 Sodium Chloride 0.9% 50 ml @ 100 mls/hr IVPB Q24HR [facility] Rx#:[id number] Oral 500 Other: Voiding Method Toilet Toilet # Voids 1 1 # Bowel Movements 1 1 - Constitutional General appearance: Present: average body habitus, no acute distress - EENT Eyes: Present: anicteric sclerae, EOMI ENT: Present: hearing grossly normal - Respiratory Details: breathing even and unlabored - Cardiovascular Details: skin warn and dry - Gastrointestinal General gastrointestinal: Present: soft. Absent: distended, tenderness - Integumentary Integumentary: Absent: cyanotic, jaundiced - Musculoskeletal Musculoskeletal: Present: generalized weakness - Psychiatric Psychiatric: Present: A&O x's 3, appropriate affect, intact judgment & insight - Labs CBC & Chem 7: 12/01/22 06:32 12/01/22 06:32 Labs: Abnormal Lab Results - Last 24 Hours (Table) 11/30/22 12/01/22 12/01/22 Range/Units 06:17 06:32 06:32 RBC 3.73 L (3.80-5.40) m/uL Hgb 10.4 L (11.4-16.0) gm/dL Hct 30.3 L (34.0-46.0) % Plt Count 97 L D 82 L (150-450) k/uL Blast Cells % 2 H* 1 H* % Metamyelocytes # (Man) 0.41 H 0.40 H (0) k/uL Myelocytes # (Manual) 0.49 H 0.79 H (0) k/uL Promyelocytes # (Man) 0.08 H 0.20 H (0) k/uL Blast Cells # (Man) 0.16 H 0.10 H (0) k/uL Sodium 135 L (137-145) mmol/L Chloride 110 H (98-107) mmol/L Carbon Dioxide 19 L (22-30) mmol/L Creatinine 0.45 L (0.52-1.04) mg/dL Calcium 7.4 L (8.4-10.2) mg/dL Total Protein 4.1 L (6.3-8.2) g/dL Albumin 2.1 L (3.5-5.0) g/dL Assessment and Plan (1) Chemotherapy induced diarrhea Current Visit: Yes Status: Acute Code(s): K52.1 - TOXIC GASTROENTERITIS AND COLITIS; T45.1X5A - ADVERSE EFFECT OF ANTINEOPLASTIC AND IMMUNOSUP DRUGS, INIT SNOMED Code(s): 227449829 (2) Chemotherapy induced nausea and vomiting Current Visit: Yes Status: Acute Priority: High Code(s): R11.2 - NAUSEA WITH VOMITING, UNSPECIFIED; T45.1X5A - ADVERSE EFFECT OF ANTINEOPLASTIC AND IMMUNOSUP DRUGS, INIT SNOMED Code(s): 33086005 (3) Primary pancreatic adenocarcinoma Current Visit: Yes Status: Acute Priority: High Code(s): C25.9 - MALIGNANT NEOPLASM OF PANCREAS, UNSPECIFIED SNOMED Code(s): 5056008960896 Plan: Pancreatic adenocarcinoma -On 11/04 Dr. Murray reviewed with the pt that PET scan showed no evidence of metastatic disease. On initial evaluation at [facility] pt was deemed not resectable. Treatment intent, without resection, is not likely to be curable. She has been started on systemic therapy. Local radiation with concurrent low-dose chemotherapy can be considered as part of her regimen if she tolerates chemo- which she has not thus far-was another option, intent would be definitive treatment. Alternatively, if she has a good response to systemic chemotherapy, then she can be reevaluated for resectability. -Orders sent for chemotherapy dose adjustment. Next week's chemotherapy treatment has been ordered to be held. -Will schedule f/u to reassess prior to proceeding to next cycle Chemo induced N,V,D -2/2 chemo -Sx persisting, but has some improvement with hydration, antiemetics. She is complaining of intermittent epigastric/periumbilical discomfort. -Patient reports following with gastroenterology for GERD. Added Carafate for symptoms. -Confirmed with pt she has antiemetics at home -C-diff 11/21 was neg, testing reordered -Questran ordered-reports she is unable to tolerate questran today due to n/v. Diarrhea persisting. -Will add compazine prn. Coninue zofran prn. Advised pt to ask for medications as needed and to use medications proactively. Encouraged increasing oral intake as tolerated, If symptoms don't improve on regimen will add olanzapine qhs. -[place] ordered for pain management, tylenol not controlling pain. Electrolyte abnormalities -2/2 poor oral intake, N,V,D -Parenteral supplements ordered, labs today show normal magnesium and potassium levels -Pt has oral supplements at home Anemia, thrombocytopenia -Most likely secondary to chemotherapy superimposed by acute infection/UTI. No reports of bleeding, hematemesis, hematochezia or melena. Stool occult positive. Will continue to monitor -Hemoglobin 10.4 today, no transfusion at this time. CBC daily -Plt 82,000. Transfuse for platelets less than 10,000 or if symptomatic -Hold aspirin for now -Blast cell 1% noted today, likely reactive. Will continue to monitor
[2022-12-01] MEDS: PROCHLORPERAZINE INJ 10 MG/2 ML VIAL IVP PRN ×2 (15:50→21:25)
--- NOTE | 2022-12-01 17:16 | P.PN ---
Subjective Progress Note Date: 12/01/22 Luz Marina Mallory, he is a 57-year-old female who presented to [facility] emergency room with a chief complaint of severe generalized weakness, diarrhea, and dehydration was no urine output for the last 2 days. She was evaluated in the emergency room vital examination on presentation re vealed a temperature of 97.7 heart rate 129 respiration 22 blood pressure 90/66 pulse ox 97% on room air Laboratory data revealed a white blood count of 1.6 hemoglobin 14.9 platelet count 50 INR 1.2 sodium 131 potassium 2.5 chloride 90 CO2 22 BUN 15 creatinine 0.59 Testing in the emergency room revealed chest x-ray done in the emergency room revealed no evidence for acute pulmonary disease, EKG done in the emergency room revealed sinus rhythm with frequent supraventricular premature complexes Patient was admitted to medical floor for further evaluation and treatment Past medical history is significant for history of pancreatic cancer with metastatic disease, patient was started on chemotherapy last month, history of asthma, history of gastroesophageal reflux disease, history of osteoarthritis, history of obstructive sleep apnea maintained on CPAP On review of systems at this time patient is alert and oriented 3 in no apparent distress, there is no fever or chills no headache or dizziness no chest pain, no shortness of breath no cough, she is still having some nausea no vomiting she is still having some diarrhea, there is no abdominal pain, no blood in the stools, she has burning with urination, she stated that she just started urinating, she had no urinary output for 2 days, there is no blood in the urine, she denies any weakness or numbness in any of the extremities there is no change in vision speech or gait. On 11/30/2022 patient was seen and examined on the medical floor she is alert and oriented 3 in no apparent distress, she is still complaining of poor appetite and very poor oral intake, she is complaining of nausea vomiting and diarrhea, stools for C. diff were ordered results are still pending, vital exam reveals a temperature of 97.4 pulse 76 respiration 16 blood pressure 118/87 pulse ox 99% on room air white blood count is 8.2 hemoglobin 9.4 platelet count still pending. On 12/01/2022 patient was seen and examined on the telemetry floor she is alert and oriented 3 in no apparent distress there is no fever or chills no headache or dizziness no chest pain no shortness of breath no cough she is still complaining of nausea and occasional vomiting there is no abdominal pain she is still complaining of diarrhea there is no blood in the stools however occult blood was positive there is no burning with urination no frequency or urgency and no hematuria Objective - Vital Signs Vital signs: Vital Signs Temp 98.4 F 12/01/22 11:37 Pulse 70 12/01/22 11:58 Resp 18 12/01/22 11:37 BP 116/74 12/01/22 11:37 Pulse Ox 97 12/01/22 11:37 FiO2 Intake & Output 11/30/22 12/01/22 12/01/22 18:59 06:59 18:59 Intake Total 950 1400 Balance 950 1400 Intake: Intake, IV Titration 950 900 Amount Sodium Chloride 0.9% 1, 900 900 000 ml @ 75 mls/hr IV . [id number] [facility] Rx#:[id number] cefTRIAXone 1 gm In 50 Sodium Chloride 0.9% 50 ml @ 100 mls/hr IVPB Q24HR [facility] Rx#:[id number] Oral 500 Other: Voiding Method Toilet Toilet # Voids 1 1 # Bowel Movements 1 1 - Exam In general patient is alert and oriented x 3 in no distress HEENT head normocephalic and atraumatic Neck is supple no JVD no goiter no lymphadenopathy no carotid bruit Chest examination is clear to auscultation no crackles no wheezing Cardiac exam reveals regular heart sounds S1 and S2 no gallops no murmurs Abdomen is soft nontender no organomegaly with normal bowel sounds Extremity exam reveals no edema no cyanosis or clubbing Neurological examination reveals no gross focal deficits - Labs CBC & Chem 7: 12/01/22 06:32 12/01/22 06:32 Labs: Abnormal Lab Results - Last 24 Hours (Table) 11/30/22 12/01/22 12/01/22 Range/Units 06:17 06:32 06:32 RBC 3.73 L (3.80-5.40) m/uL Hgb 10.4 L (11.4-16.0) gm/dL Hct 30.3 L (34.0-46.0) % Plt Count 97 L D 82 L (150-450) k/uL Blast Cells % 2 H* 1 H* % Metamyelocytes # (Man) 0.41 H 0.40 H (0) k/uL Myelocytes # (Manual) 0.49 H 0.79 H (0) k/uL Promyelocytes # (Man) 0.08 H 0.20 H (0) k/uL Blast Cells # (Man) 0.16 H 0.10 H (0) k/uL Sodium 135 L (137-145) mmol/L Chloride 110 H (98-107) mmol/L Carbon Dioxide 19 L (22-30) mmol/L Creatinine 0.45 L (0.52-1.04) mg/dL Calcium 7.4 L (8.4-10.2) mg/dL Total Protein 4.1 L (6.3-8.2) g/dL Albumin 2.1 L (3.5-5.0) g/dL Assessment and Plan Plan: Dehydration, with severe electrolyte imbalance, with hyponatremia hypokalemia and hypomagnesemia Poor urinary output Evidence of urinary tract infection Leukopenia and thrombocytopenia likely related to chemotherapy Recent diagnosis with creatinine cancer with metastatic disease, patient was recently started on chemotherapy Underlying history of osteoarthritis Underlying history of obstructive sleep apnea maintained on CPAP At this time patient was admitted to medical floor She was started on IV fluid Electrolyte correction protocols She was also started on IV ceftriaxone for urinary tract infection Nephrology and oncology consultation was requested Will recheck labs in a.m. Will follow closely
[2022-12-01] MEDS: lamoTRIgine 25 MG TAB PO SCH (20:53)
[2022-12-01] MEDS: ATORVASTATIN 10 MG TAB PO SCH (20:53)
[2022-12-02] MEDS: SODIUM CHLORIDE 0.9% 1,000 ML IV SCH (06:16)
[2022-12-02 06:53] LABS: HCT 30.2 % (34.0-46.0); HGB 10.3 gm/dL (11.4-16.0); MCHC 34.2 g/dL (31.0-37.0); MCV 82.1 fL (80.0-100.0); Mean Platelet Volume 9.6; Platelet Count 107 k/uL (150-450); RBC 3.68 m/uL (3.80-5.40); RDW 14.1 % (11.5-15.5); WBC 11.7 k/uL (3.8-10.6)
[2022-12-02] MEDS: IPRATROPIUM 0.5 MG/2.5 ML NEBU INHALATION SCH ×4 (07:49→18:35)
[2022-12-02] MEDS: SYMBICORT 80-4.5 MCG INHALER INHALATION SCH ×2 (07:49→18:35)
[2022-12-02 08:18] LABS: Band Neutrophils % 7 %; Lymphocytes # (M) 1.87 k/uL (1.0-4.8); Metamyelocytes # (M) 0.59 k/uL (0); Metamyelocytes % 5 %; Monocytes # (M) 1.17 k/uL (0-1.0); Myelocytes # (M) 0.23 k/uL (0); Myelocytes % 2 %; Neutrophils % (M) 62 %; Nucleated Red Blood Cells 0 /100 WBC (0-0); Total Cells Counted 200
[2022-12-02] MEDS: SUCRALFATE 1 GM TAB PO SCH ×3 (08:52→17:37)
[2022-12-02] MEDS: FAMOTIDINE 20 MG TAB PO SCH (08:52)
[2022-12-02] MEDS: METOPROLOL TARTRATE 25 MG TAB PO SCH ×2 (08:52→20:20)
[2022-12-02] MEDS: POTASSIUM CHLORIDE ER 20 MEQ TAB.ER PO SCH ×2 (08:52→20:19)
[2022-12-02] MEDS: PANTOPRAZOLE 40 MG TABLET PO SCH ×2 (08:52→17:37)
[2022-12-02] MEDS: FERROUS SULFATE 325 MG TAB PO SCH (08:52)
[2022-12-02] MEDS: DULoxetine HCL 30 MG CAPSULE.DR PO SCH ×2 (08:52→20:19)
[2022-12-02] MEDS: MIDODRINE 5 MG TAB PO SCH ×3 (08:53→21:40)
[2022-12-02] MEDS: CHOLESTYRAMINE (WITH SUGAR) 4 GM PACKET PO SCH ×2 (08:53→20:18)
--- NOTE | 2022-12-02 08:58 | P.PN ---
Subjective Progress Note Date: 12/02/22 Luz Marina Mallory, he is a 57-year-old female who presented to [facility] emergency room with a chief complaint of severe generalized weakness, diarrhea, and dehydration was no urine output for the last 2 days. She was evaluated in the emergency room vital examination on presentation reve aled a temperature of 97.7 heart rate 129 respiration 22 blood pressure 90/66 pulse ox 97% on room air Laboratory data revealed a white blood count of 1.6 hemoglobin 14.9 platelet count 50 INR 1.2 sodium 131 potassium 2.5 chloride 90 CO2 22 BUN 15 creatinine 0.59 Testing in the emergency room revealed chest x-ray done in the emergency room revealed no evidence for acute pulmonary disease, EKG done in the emergency room revealed sinus rhythm with frequent supraventricular premature complexes Patient was admitted to medical floor for further evaluation and treatment Past medical history is significant for history of pancreatic cancer with metastatic disease, patient was started on chemotherapy last month, history of asthma, history of gastroesophageal reflux disease, history of osteoarthritis, history of obstructive sleep apnea maintained on CPAP On review of systems at this time patient is alert and oriented 3 in no apparent distress, there is no fever or chills no headache or dizziness no chest pain, no shortness of breath no cough, she is still having some nausea no vomiting she is still having some diarrhea, there is no abdominal pain, no blood in the stools, she has burning with urination, she stated that she just started urinating, she had no urinary output for 2 days, there is no blood in the urine, she denies any weakness or numbness in any of the extremities there is no change in vision speech or gait. On 11/30/2022 patient was seen and examined on the medical floor she is alert and oriented 3 in no apparent distress, she is still complaining of poor appetite and very poor oral intake, she is complaining of nausea vomiting and diarrhea, stools for C. diff were ordered results are still pending, vital exam reveals a temperature of 97.4 pulse 76 respiration 16 blood pressure 118/87 pulse ox 99% on room air white blood count is 8.2 hemoglobin 9.4 platelet count still pending. On 12/01/2022 patient was seen and examined on the telemetry floor she is alert and oriented 3 in no apparent distress there is no fever or chills no headache or dizziness no chest pain no shortness of breath no cough she is still complaining of nausea and occasional vomiting there is no abdominal pain she is still complaining of diarrhea there is no blood in the stools however occult blood was positive there is no burning with urination no frequency or urgency and no hematuria On 12/02/2022 patient is alert and oriented 3 resting in bed. Hematology nephrology services are following. Patient remains on IV Rocephin for UTI. Blood pressures remained marginal. Patient denies chest pain or shortness of breath. Occasional vomiting and diarrhea. Denies any urinary burning or frequency Objective - Vital Signs Vital signs: Vital Signs Temp 97.9 F 12/02/22 07:20 Pulse 66 12/02/22 07:20 Resp 18 12/02/22 07:20 BP 72/43 12/02/22 07:20 Pulse Ox 100 12/02/22 07:20 FiO2 Intake & Output 12/01/22 12/02/22 12/02/22 18:59 06:59 18:59 Intake Total 950 1400 Balance 950 1400 Intake: Intake, IV Titration 950 900 Amount Sodium Chloride 0.9% 1, 900 900 000 ml @ 75 mls/hr IV . [id number] [facility] Rx#:[id number] cefTRIAXone 1 gm In 50 Sodium Chloride 0.9% 50 ml @ 100 mls/hr IVPB Q24HR S[facility] Rx#:[id number] Oral 500 Other: Voiding Method Toilet # Voids 1 3 # Bowel Movements 1 - Exam In general patient is alert and oriented x 3 in no distress HEENT head normocephalic and atraumatic Neck is supple no JVD no goiter no lymphadenopathy no carotid bruit Chest examination is clear to auscultation no crackles no wheezing Cardiac exam reveals regular heart sounds S1 and S2 no gallops no murmurs Abdomen is soft nontender no organomegaly with normal bowel sounds Extremity exam reveals no edema no cyanosis or clubbing Neurological examination reveals no gross focal deficits - Labs CBC & Chem 7: 12/02/22 06:21 12/01/22 06:32 Labs: Abnormal Lab Results - Last 24 Hours (Table) 12/02/22 Range/Units 06:21 WBC 11.7 H (3.8-10.6) k/uL RBC 3.68 L (3.80-5.40) m/uL Hgb 10.3 L (11.4-16.0) gm/dL Hct 30.2 L (34.0-46.0) % Plt Count 107 L (150-450) k/uL Neutrophils # (Manual) 8.00 H (1.3-7.7) k/uL Monocytes # (Manual) 1.17 H (0-1.0) k/uL Metamyelocytes # (Man) 0.59 H (0) k/uL Myelocytes # (Manual) 0.23 H (0) k/uL Assessment and Plan Assessment: Dehydration, with severe electrolyte imbalance, with hyponatremia hypokalemia and hypomagnesemia Poor urinary output Evidence of urinary tract infection Leukopenia and thrombocytopenia likely related to chemotherapy Recent diagnosis with pancreatic cancer with metastatic disease, patient was recently started on chemotherapy Underlying history of osteoarthritis Underlying history of obstructive sleep apnea maintained on CPAP At this time patient was admitted to medical floor She was started on IV fluid Electrolyte correction protocols She was also started on IV ceftriaxone for urinary tract infection Nephrology and oncology consultation was requested Will recheck labs in a.m. Will follow closely
[2022-12-02 11:17] LABS: ALT 19 U/L (8-44); AST 17 U/L (13-35); Albumin 2.3 d/dL (3.8-4.9); Albumin/Globulin Ratio 1.35 Ratio (1.60-3.17); Alkaline Phosphatase 71 U/L (41-126); Calcium 7.8 mg/dL (8.7-10.3); Carbon Dioxide 20.8 mmol/L (21.6-31.8); Chloride 111 mmol/L (96-109); Globulin 1.7 d/dL (1.6-3.3); Glucose 84 mg/dL (70-110); Potassium 3.9 mmol/L (3.5-5.5); Sodium 140 mmol/L (135-145); Total Bilirubin 0.2 mg/dL (0.3-1.2)
[2022-12-02] MEDS: DIPHENOX-ATROP 2.5-0.025 MG 1 EACH TAB PO SCH ×3 (12:45→21:40)
--- NOTE | 2022-12-02 14:00 | P.PN ---
Subjective Progress Note Date: 12/02/22 Principal diagnosis: pancreatic cancer, n/v Patient is reporting worsening nausea vomiting today. Some improvement with antiemetics. Also reporting intermittent abdominal pain. Diarrhea persisting. She was unable to tolerate Questran today due to nausea vomiting. Denies any reported episodes of acute bleeding. Hemoglobin stable at 10.4, platelets 82,000. Objective - Vital Signs Vital signs: Vital Signs Temp 97.9 F 12/02/22 12:01 Pulse 63 12/02/22 12:01 Resp 18 12/02/22 12:01 BP 97/64 12/02/22 12:01 Pulse Ox 99 12/02/22 12:01 FiO2 Intake & Output 12/01/22 12/02/22 12/02/22 18:59 06:59 18:59 Intake Total 950 1400 Balance 950 1400 Intake: Intake, IV Titration 950 900 Amount Sodium Chloride 0.9% 1, 900 900 000 ml @ 75 mls/hr IV . [id number] [facility] Rx#:[id number] cefTRIAXone 1 gm In 50 Sodium Chloride 0.9% 50 ml @ 100 mls/hr IVPB Q24HR [facility] Rx#:[id number] Oral 500 Other: Voiding Method Toilet # Voids 1 3 # Bowel Movements 1 - Constitutional General appearance: Present: average body habitus, no acute distress - EENT Eyes: Present: anicteric sclerae, EOMI ENT: Present: hearing grossly normal - Respiratory Details: breathing even and unlabored - Cardiovascular Details: skin warm and dry - Gastrointestinal General gastrointestinal: Present: soft. Absent: tenderness - Integumentary Integumentary: Absent: cyanotic, jaundiced - Neurologic Neurologic Comment(s): grossly intact - Musculoskeletal Musculoskeletal: Present: generalized weakness - Psychiatric Psychiatric: Present: A&O x's 3, appropriate affect, intact judgment & insight - Labs CBC & Chem 7: 12/02/22 06:21 12/02/22 06:21 Labs: Abnormal Lab Results - Last 24 Hours (Table) 12/02/22 12/02/22 Range/Units 06:21 06:21 WBC 11.7 H (3.8-10.6) k/uL RBC 3.68 L (3.80-5.40) m/uL Hgb 10.3 L (11.4-16.0) gm/dL Hct 30.2 L (34.0-46.0) % Plt Count 107 L (150-450) k/uL Neutrophils # (Manual) 8.00 H (1.3-7.7) k/uL Monocytes # (Manual) 1.17 H (0-1.0) k/uL Metamyelocytes # (Man) 0.59 H (0) k/uL Myelocytes # (Manual) 0.23 H (0) k/uL Chloride 111 H (96-109) mmol/L Carbon Dioxide 20.8 L (21.6-31.8) mmol/L BUN 6.0 L (9.0-27.0) mg/dL Creatinine 0.5 L (0.6-1.5) mg/dL Calcium 7.8 L (8.7-10.3) mg/dL Total Bilirubin 0.2 L (0.3-1.2) mg/dL Total Protein 4.0 L (6.2-8.2) d/dL Albumin 2.3 L (3.8-4.9) d/dL Albumin/Globulin Ratio 1.35 L (1.60-3.17) Ratio Assessment and Plan (1) Chemotherapy induced diarrhea Current Visit: Yes Status: Acute Code(s): K52.1 - TOXIC GASTROENTERITIS AND COLITIS; T45.1X5A - ADVERSE EFFECT OF ANTINEOPLASTIC AND IMMUNOSUP DRUGS, INIT SNOMED Code(s): 994601112 (2) Chemotherapy induced nausea and vomiting Current Visit: Yes Status: Acute Priority: High Code(s): R11.2 - NAUSEA WITH VOMITING, UNSPECIFIED; T45.1X5A - ADVERSE EFFECT OF ANTINEOPLASTIC AND IMMUNOSUP DRUGS, INIT SNOMED Code(s): 93452046 (3) Primary pancreatic adenocarcinoma Current Visit: Yes Status: Acute Priority: High Code(s): C25.9 - MALIGNANT NEOPLASM OF PANCREAS, UNSPECIFIED SNOMED Code(s): 1195603523564 Plan: Pancreatic adenocarcinoma -On 11/04 Dr. Murray reviewed with the pt that PET scan showed no evidence of metastatic disease. On initial evaluation at [facility] pt was deemed not resectable. Treatment intent, without resection, is not likely to be curable. She has been started on systemic therapy. Local radiation with concurrent low-dose shavonne motherapy can be considered as part of her regimen if she tolerates chemo-which she has not thus far-was another option, intent would be definitive treatment. Alternatively, if she has a good response to systemic chemotherapy, then she can be reevaluated for resectability. -Orders sent for chemotherapy dose reduction. Chemotherapy treatment has been ordered to be held this week -Will schedule clinic f/u to reassess prior to proceeding to next cycle Chemo induced N,V,D -2/2 chemo -N/V improved with compazine. Abd pain improved today, has not required pain medications -Patient reports following with gastroenterology for GERD. Added Carafate for symptoms. -C-diff negative -Questran ordered-reports she was unable to tolerate questran due to n/v. Did not take for previous 48 hours, was able to tolerate med this morning. Reporting persisting diarhhea. Lomotil changed to scheduled QID. Will reassess in the morning -Continue anti-emetics and hydration. Advised pt to ask for medications as needed and to use medications proactively. Encouraged increasing oral intake as tolerated Electrolyte abnormalities -2/2 poor oral intake, N,V,D -Parenteral supplements ordered, labs today show normal magnesium and potassium levels -Pt has oral supplements at home Anemia, thrombocytopenia -Most likely secondary to chemotherapy superimposed by acute infection/UTI. No reports of bleeding, hematemesis, hematochezia or melena. Stool occult positive. Will continue to monitor -Hemoglobin 10.3 today, no transfusion at this time. CBC daily -Plt improved, 107,000 today. Transfuse for platelets less than 10,000 or if symptomatic -Hold aspirin for now -Blast cell 2% noted. Today rare blasts seen, likely reactive. Will continue to monitor Dr. paigeests: I have seen and examined patient, performed H&P, developed impression and plan of care. Discussed with dictator. Agree with docume ntation, dictated as a scribe
[2022-12-02] MEDS: IPRATROPIUM-ALBUTEROL 3 ML NEB INHALATION PRN (18:35)
[2022-12-02] MEDS: lamoTRIgine 25 MG TAB PO SCH (20:19)
[2022-12-02] MEDS: ATORVASTATIN 10 MG TAB PO SCH (20:19)
[2022-12-03] MEDS: SODIUM CHLORIDE 0.9% 1,000 ML IV SCH ×2 (05:29→16:02)
[2022-12-03] MEDS: SYMBICORT 80-4.5 MCG INHALER INHALATION SCH ×2 (08:52→19:12)
[2022-12-03] MEDS: IPRATROPIUM 0.5 MG/2.5 ML NEBU INHALATION SCH ×4 (08:52→19:12)
[2022-12-03] MEDS: IPRATROPIUM-ALBUTEROL 3 ML NEB INHALATION PRN ×2 (08:52→12:20)
[2022-12-03] MEDS: FERROUS SULFATE 325 MG TAB PO SCH (09:10)
[2022-12-03] MEDS: PANTOPRAZOLE 40 MG TABLET PO SCH ×2 (09:10→17:29)
[2022-12-03] MEDS: FAMOTIDINE 20 MG TAB PO SCH (09:10)
[2022-12-03] MEDS: SUCRALFATE 1 GM TAB PO SCH ×3 (09:10→17:29)
[2022-12-03] MEDS: POTASSIUM CHLORIDE ER 20 MEQ TAB.ER PO SCH ×2 (09:10→21:16)
[2022-12-03] MEDS: MIDODRINE 5 MG TAB PO SCH ×3 (09:10→21:07)
[2022-12-03] MEDS: CHOLESTYRAMINE (WITH SUGAR) 4 GM PACKET PO SCH ×2 (09:10→21:07)
[2022-12-03] MEDS: DULoxetine HCL 30 MG CAPSULE.DR PO SCH ×2 (09:11→21:07)
[2022-12-03] MEDS: DIPHENOX-ATROP 2.5-0.025 MG 1 EACH TAB PO SCH ×4 (09:11→21:06)
[2022-12-03] MEDS: METOPROLOL TARTRATE 25 MG TAB PO SCH ×2 (09:11→21:07)
--- NOTE | 2022-12-03 10:04 | P.PN ---
Subjective Progress Note Date: 12/03/22 Luz Marina Mallory, he is a 57-year-old female who presented to [facility] emergency room with a chief complaint of severe generalized weakness, diarrhea, and dehydration was no urine output for the last 2 days. She was evaluated in the emergency room vital examination on presentation re vealed a temperature of 97.7 heart rate 129 respiration 22 blood pressure 90/66 pulse ox 97% on room air Laboratory data revealed a white blood count of 1.6 hemoglobin 14.9 platelet count 50 INR 1.2 sodium 131 potassium 2.5 chloride 90 CO2 22 BUN 15 creatinine 0.59 Testing in the emergency room revealed chest x-ray done in the emergency room revealed no evidence for acute pulmonary disease, EKG done in the emergency room revealed sinus rhythm with frequent supraventricular premature complexes Patient was admitted to medical floor for further evaluation and treatment Past medical history is significant for history of pancreatic cancer with metastatic disease, patient was started on chemotherapy last month, history of asthma, history of gastroesophageal reflux disease, history of osteoarthritis, history of obstructive sleep apnea maintained on CPAP On review of systems at this time patient is alert and oriented 3 in no apparent distress, there is no fever or chills no headache or dizziness no chest pain, no shortness of breath no cough, she is still having some nausea no vomiting she is still having some diarrhea, there is no abdominal pain, no blood in the stools, she has burning with urination, she stated that she just started urinating, she had no urinary output for 2 days, there is no blood in the urine, she denies any weakness or numbness in any of the extremities there is no change in vision speech or gait. On 11/30/2022 patient was seen and examined on the medical floor she is alert and oriented 3 in no apparent distress, she is still complaining of poor appetite and very poor oral intake, she is complaining of nausea vomiting and diarrhea, stools for C. diff were ordered results are still pending, vital exam reveals a temperature of 97.4 pulse 76 respiration 16 blood pressure 118/87 pulse ox 99% on room air white blood count is 8.2 hemoglobin 9.4 platelet count still pending. On 12/01/2022 patient was seen and examined on the telemetry floor she is alert and oriented 3 in no apparent distress there is no fever or chills no headache or dizziness no chest pain no shortness of breath no cough she is still complaining of nausea and occasional vomiting there is no abdominal pain she is still complaining of diarrhea there is no blood in the stools however occult blood was positive there is no burning with urination no frequency or urgency and no hematuria On 12/02/2022 patient is alert and oriented 3 resting in bed. Hematology nephrology services are following. Patient remains on IV Rocephin for UTI. Blood pressures remained marginal. Patient denies chest pain or shortness of breath. Occasional vomiting and diarrhea. Denies any urinary burning or frequency On 12/03/2022 patient is alert and oriented 3. Patient reports improvement with nausea and vomiting. Will update to regular diet. Laboratory currently pending. Hematology service is following. Patient denies chest pain breath. Patient denies nausea vomiting or diarrhea. Patient denies any urinary burning frequency Objective - Vital Signs Vital signs: Vital Signs Temp 97.7 F 12/03/22 07:30 Pulse 86 12/03/22 09:04 Resp 18 12/03/22 07:30 BP 85/59 12/03/22 07:30 Pulse Ox 97 12/03/22 07:30 FiO2 Intake & Output 12/02/22 12/03/22 12/03/22 18:59 06:59 18:59 Other: # Voids 4 4 2 # Bowel Movements 1 - Exam In general patient is alert and oriented x 3 in no distress HEENT head normocephalic and atraumatic Neck is supple no JVD no goiter no lymphadenopathy no carotid bruit Chest examination is clear to auscultation no crackles no wheezing Cardiac exam reveals regular heart sounds S1 and S2 no gallops no murmurs Abdomen is soft nontender no organomegaly with normal bowel sounds Extremity exam reveals no edema no cyanosis or clubbing Neurological examination reveals no gross focal deficits - Labs CBC & Chem 7: 12/02/22 06:21 12/02/22 06:21 Labs: Abnormal Lab Results - Last 24 Hours (Table) 12/02/22 Range/Units 06:21 Chloride 111 H (96-109) mmol/L Carbon Dioxide 20.8 L (21.6-31.8) mmol/L BUN 6.0 L (9.0-27.0) mg/dL Creatinine 0.5 L (0.6-1.5) mg/dL Calcium 7.8 L (8.7-10.3) mg/dL Total Bilirubin 0.2 L (0.3-1.2) mg/dL Total Protein 4.0 L (6.2-8.2) d/dL Albumin 2.3 L (3.8-4.9) d/dL Albumin/Globulin Ratio 1.35 L (1.60-3.17) Ratio Assessment and Plan Plan: Dehydration, with severe electrolyte imbalance, with hyponatremia hypokalemia and hypomagnesemia Poor urinary output Evidence of urinary tract infection Leukopenia and thrombocytopenia likely related to chemotherapy Recent diagnosis with creatinine cancer with metastatic disease, patient was recently started on chemotherapy Underlying history of osteoarthritis Underlying history of obstructive sleep apnea maintained on CPAP At this time patient was admitted to medical floor She was started on IV fluid Electrolyte correction protocols She was also started on IV ceftriaxone for urinary tract infection Nephrology and oncology consultation was requested Will recheck labs in a.m. Will follow closely
[2022-12-03 11:23] LABS: ALT 19 U/L (8-44); AST 15 U/L (13-35); Albumin 2.6 d/dL (3.8-4.9); Albumin/Globulin Ratio 1.44 Ratio (1.60-3.17); Alkaline Phosphatase 83 U/L (41-126); Blood Urea Nitrogen 3.5 mg/dL (9.0-27.0); Calcium 7.8 mg/dL (8.7-10.3); Carbon Dioxide 20.7 mmol/L (21.6-31.8); Chloride 109 mmol/L (96-109); Globulin 1.8 d/dL (1.6-3.3); Glucose 100 mg/dL (70-110); Potassium 3.8 mmol/L (3.5-5.5); Sodium 141 mmol/L (135-145); Total Bilirubin 0.2 mg/dL (0.3-1.2); Total Protein 4.4 d/dL (6.2-8.2)
[2022-12-03 12:18] LABS: HCT 33.8 % (37.2-46.3); HGB 10.8 d/dL (12.0-15.0); MCH 26.2 pg (27.0-32.0); Mean Platelet Volume 11.2 FL (9.5-12.2); NRBC Per 100 WBC 0.14 X 10*3/uL (0.00-0.01); Platelet Count 172 X 10*3/uL (140-440); RBC 4.12 X 10*6/uL (4.10-5.20); RDW 14.3 % (11.5-14.5); WBC 14.87 X 10*3/uL (4.50-10.00)
[2022-12-03 12:19] LABS: Basophils # (M) 0 X 10*3/uL (0.00-0.10); Eosinophils # (M) 0 X 10*3/uL (0.04-0.35); Lymphocytes # (M) 0.59 X 10*3/uL (0.90-5.00); Metamyelocytes % 4 % (0-0); Monocytes # (M) 1.19 X 10*3/uL (0.20-1.00); Myelocytes % 8 % (0-0); Neutrophils # (M) 11.15 X 10*3/uL (1.80-7.70); Neutrophils % (M) 75 %; Promyelocytes # (M) 0.15 k/uL (0); Promyelocytes % 1 %
--- NOTE | 2022-12-03 15:59 | P.PN ---
Subjective Progress Note Date: 12/03/22 Principal diagnosis: pancreatic cancer, n/v Patient is reporting improvement in n/v. Tolerating oral intake. Also reporting improvement in abdominal pain. Diarrhea slightly improved but persisting. Reports 2 episodes of diarrhea this morning. She continues on Questran bid and lomotil qid for the last 24 hours. Hemoglobin stable at 10.8, platelets 172,000. Objective - Vital Signs Vital signs: Vital Signs Temp 97.6 F 12/03/22 12:48 Pulse 100 12/03/22 12:48 Resp 17 12/03/22 12:48 BP 110/69 12/03/22 12:48 Pulse Ox 100 12/03/22 12:48 FiO2 Intake & Output 12/02/22 12/03/22 12/03/22 18:59 06:59 18:59 Other: # Voids 4 4 2 # Bowel Movements 1 - Constitutional General appearance: Present: average body habitus, no acute distress - EENT Eyes: Present: anicteric sclerae, EOMI ENT: Present: hearing grossly normal - Respiratory Details: breathing is even and unlabored - Cardiovascular Details: skin warm and dry - Gastrointestinal General gastrointestinal: Present: soft. Absent: tenderness - Integumentary Integumentary: Absent: cyanotic, jaundiced - Neurologic Neurologic Comment(s): grossly intact - Musculoskeletal Musculoskeletal: Present: generalized weakness - Psychiatric Psychiatric: Present: A&O x's 3, appropriate affect, intact judgment & insight - Labs CBC & Chem 7: 12/03/22 06:05 12/03/22 06:05 Labs: Abnormal Lab Results - Last 24 Hours (Table) 12/03/22 12/03/22 Range/Units 06:05 06:05 WBC 14.87 H (4.50-10.00) X 10*3/uL Hgb 10.8 L (12.0-15.0) d/dL Hct 33.8 L (37.2-46.3) % MCH 26.2 L (27.0-32.0) pg Lymphocytes # (Manual) 0.59 L (0.90-5.00) X 10*3/uL Monocytes # (Manual) 1.19 H (0.20-1.00) X 10*3/uL Eosinophils # (Manual) 0 L (0.04-0.35) X 10*3/uL NRBC/100 WBC Diff 0.14 H (0.00-0.01) X 10*3/uL Carbon Dioxide 20.7 L (21.6-31.8) mmol/L BUN 3.5 L (9.0-27.0) mg/dL Creatinine 0.5 L (0.6-1.5) mg/dL BUN/Creatinine Ratio 7.00 L (12.00-20.00) Ratio Calcium 7.8 L (8.7-10.3) mg/dL Total Bilirubin 0.2 L (0.3-1.2) mg/dL Total Protein 4.4 L (6.2-8.2) d/dL Albumin 2.6 L (3.8-4.9) d/dL Albumin/Globulin Ratio 1.44 L (1.60-3.17) Ratio Assessment and Plan (1) Chemotherapy induced diarrhea Current Visit: Yes Status: Acute Code(s): K52.1 - TOXIC GASTROENTERITIS AND COLITIS; T45.1X5A - ADVERSE EFFECT OF ANTINEOPLASTIC AND IMMUNOSUP DRUGS, INIT SNOMED Code(s): 156740189 (2) Chemotherapy induced nausea and vomiting Current Visit: Yes Status: Acute Priority: High Code(s): R11.2 - NAUSEA WITH VOMITING, UNSPECIFIED; T45.1X5A - ADVERSE EFFECT OF ANTINEOPLASTIC AND IMMUNOSUP DRUGS, INIT SNOMED Code(s): 44754378 (3) Primary pancreatic adenocarcinoma Current Visit: Yes Status: Acute Priority: High Code(s): C25.9 - MALIGNANT NEOPLASM OF PANCREAS, UNSPECIFIED SNOMED Code(s): 2935700884179 Plan: Pancreatic adenocarcinoma -On 11/04 Dr. Murray reviewed with the pt that PET scan showed no evidence of metastatic disease. On initial evaluation at [facility] pt was deemed not resectable. Treatment intent, without resection, is not likely to be curable. She has been started on systemic therapy. Local radiation with concurrent low-dose chemotherapy can be considered as part of her regimen if she tolerates chemo- which she has not thus far-was another option, intent would be definitive treatment. Alternatively, if she has a good response to systemic chemotherapy, then she can be reevaluated for resectability. -Orders sent for chemotherapy dose reduction. Chemotherapy treatment has been ordered to be held this week -Will schedule clinic f/u to reassess prior to proceeding to next cycle Updated patient on POC Chemo induced N,V,D -2/2 chemo -N/V improved with current regimen. Abd pain improved, norco prn ordered -C-diff negative -Questran ordered-reports she was unable to initially tolerate questran due to n/v. She continues on Questran bid and lomotil qid for the last 24 hours. Diarrhea slightly improved, but persisting. Will continue scheduled questran and lomotil and continue to monitor symptoms -Continue anti-emetics and hydration. Advised pt to request anti-emetics as needed and to use medications proactively if nausea persists. Encouraged increasing oral intake as tolerated Electrolyte abnormalities -2/2 poor oral intake, N,V,D -Parenteral supplements ordered, magnesium and potassium levels now normal -Pt has oral supplements at home Anemia, thrombocytopenia -Most likely secondary to chemotherapy superimposed by acute infection/UTI. No reports of bleeding, hematemesis, hematochezia or melena. Stool occult positive. Will continue to monitor -Hemoglobin stable, 10.8, no transfusion at this time. CBC daily -Thrombocytopenia resolved, platelets 172,000 today. -Blast cells 2% were noted. Today no blasts seen, this was likely reactive. Will continue to monitor
[2022-12-03] MEDS: lamoTRIgine 25 MG TAB PO SCH (21:06)
[2022-12-03] MEDS: ATORVASTATIN 10 MG TAB PO SCH (21:07)
[2022-12-04 06:18] LABS: HGB 10.1 gm/dL (11.4-16.0); MCH 26.5 pg (25.0-35.0); MCHC 32.7 g/dL (31.0-37.0); Mean Platelet Volume 9.3; RBC 3.82 m/uL (3.80-5.40); RDW 15.2 % (11.5-15.5); WBC 11.4 k/uL (3.8-10.6)
[2022-12-04 06:21] LABS: Platelet Count 181 k/uL (150-450)
[2022-12-04 06:33] LABS: ALT 17 U/L (4-34); AST 19 U/L (14-36); African American GFR (CKD) >90 (>60 ml/min/1.73 sqM); Albumin 2.2 g/dL (3.5-5.0); Alkaline Phosphatase 86 U/L (38-126); Anion Gap 4 mmol/L; Blood Urea Nitrogen 2 mg/dL (7-17); Calcium 8.1 mg/dL (8.4-10.2); Carbon Dioxide 22 mmol/L (22-30); Chloride 111 mmol/L (98-107); Globulin 2.1 g/dL; Glucose 93 mg/dL (74-99); Non-African American GFR(CKD) >90 (>60 ml/min/1.73 sqM); Potassium 3.7 mmol/L (3.5-5.1); Sodium 137 mmol/L (137-145); Total Bilirubin 0.3 mg/dL (0.2-1.3); Total Protein 4.3 g/dL (6.3-8.2)
[2022-12-04 06:34] LABS: Band Neutrophils % 27 %; Lymphocytes # (M) 1.48 k/uL (1.0-4.8); Metamyelocytes # (M) 0.68 k/uL (0); Metamyelocytes % 6 %; Myelocytes # (M) 0.23 k/uL (0); Myelocytes % 2 %; Neutrophils % (M) 45 %; Nucleated Red Blood Cells 0 /100 WBC (0-0); Total Cells Counted 200
[2022-12-04] MEDS: IPRATROPIUM 0.5 MG/2.5 ML NEBU INHALATION SCH ×4 (07:55→19:13)
[2022-12-04] MEDS: SYMBICORT 80-4.5 MCG INHALER INHALATION SCH ×2 (07:55→19:13)
[2022-12-04] MEDS: IPRATROPIUM-ALBUTEROL 3 ML NEB INHALATION PRN ×2 (07:55→19:13)
[2022-12-04] MEDS: CHOLESTYRAMINE (WITH SUGAR) 4 GM PACKET PO SCH ×2 (10:22→20:31)
[2022-12-04] MEDS: SUCRALFATE 1 GM TAB PO SCH ×3 (10:23→17:50)
[2022-12-04] MEDS: DIPHENOX-ATROP 2.5-0.025 MG 1 EACH TAB PO SCH ×4 (10:23→20:31)
[2022-12-04] MEDS: MIDODRINE 5 MG TAB PO SCH ×3 (10:23→20:31)
[2022-12-04] MEDS: POTASSIUM CHLORIDE ER 20 MEQ TAB.ER PO SCH ×2 (10:23→20:31)
[2022-12-04] MEDS: DULoxetine HCL 30 MG CAPSULE.DR PO SCH ×2 (10:23→20:31)
[2022-12-04] MEDS: FERROUS SULFATE 325 MG TAB PO SCH (10:23)
[2022-12-04] MEDS: PANTOPRAZOLE 40 MG TABLET PO SCH ×2 (10:24→17:50)
[2022-12-04] MEDS: FAMOTIDINE 20 MG TAB PO SCH (10:24)
[2022-12-04] MEDS: METOPROLOL TARTRATE 25 MG TAB PO SCH ×2 (10:24→20:31)
[2022-12-04] MEDS: SODIUM CHLORIDE 0.9% 1,000 ML IV SCH ×2 (10:25→20:46)
--- NOTE | 2022-12-04 13:16 | P.PN ---
Subjective Progress Note Date: 12/04/22 Principal diagnosis: pancreatic cancer, n/v Patient is reporting improvement in n/v. Diet advanced to regular , tolerating well. Also reporting improvement in abdominal pain. Diarrhea has had some improvement, but persisting. Reports 2 episodes of diarrhea this morning but states they are more formed. She continues on Questran bid and lomotil qid. Pt is reporting feeling shaky, which has been an ongoing issue. BP was recorded at 78/69 this morning, repeat BP 90/60. Pt denies dizziness and SOB Objective - Vital Signs Vital signs: Vital Signs Temp 98 F 12/04/22 07:20 Pulse 95 12/04/22 08:07 Resp 21 12/04/22 07:20 BP 90/60 12/04/22 08:10 Pulse Ox 100 12/04/22 07:20 FiO2 Intake & Output 12/03/22 12/04/22 12/04/22 18:59 06:59 18:59 Intake Total 200 Balance 200 Intake: Oral 200 Other: Voiding Method Toilet # Voids 2 1 1 - Constitutional General appearance: Present: average body habitus, no acute distress - EENT Eyes: Present: anicteric sclerae, EOMI ENT: Present: hearing grossly normal - Respiratory Details: breathing is even and unlabored - Cardiovascular Details: skin warm and dry - Gastrointestinal General gastrointestinal: Present: soft. Absent: tenderness - Integumentary Integumentary: Absent: cyanotic - Neurologic Neurologic Comment(s): grossly intact - Musculoskeletal Musculoskeletal: Present: generalized weakness - Psychiatric Psychiatric: Present: A&O x's 3, appropriate affect, intact judgment & insight - Labs CBC & Chem 7: 12/04/22 05:41 12/04/22 05:41 Labs: Abnormal Lab Results - Last 24 Hours (Table) 12/04/22 12/04/22 Range/Units 05:41 05:41 WBC 11.4 H (3.8-10.6) k/uL Hgb 10.1 L (11.4-16.0) gm/dL Hct 31.0 L (34.0-46.0) % Neutrophils # (Manual) 8.20 H (1.3-7.7) k/uL Metamyelocytes # (Man) 0.68 H (0) k/uL Myelocytes # (Manual) 0.23 H (0) k/uL Chloride 111 H (98-107) mmol/L BUN 2 L (7-17) mg/dL Calcium 8.1 L (8.4-10.2) mg/dL Total Protein 4.3 L (6.3-8.2) g/dL Albumin 2.2 L (3.5-5.0) g/dL Assessment and Plan (1) Chemotherapy induced diarrhea Current Visit: Yes Status: Acute Code(s): K52.1 - TOXIC GASTROENTERITIS AND COLITIS; T45.1X5A - ADVERSE EFFECT OF ANTINEOPLASTIC AND IMMUNOSUP DRUGS, INIT SNOMED Code(s): 655249856 (2) Chemotherapy induced nausea and vomiting Current Visit: Yes Status: Acute Priority: High Code(s): R11.2 - NAUSEA WITH VOMITING, UNSPECIFIED; T45.1X5A - ADVERSE EFFECT OF ANTINEOPLASTIC AND IMMUNOSUP DRUGS, INIT SNOMED Code(s): 02076679 (3) Primary pancreatic adenocarcinoma Current Visit: Yes Status: Acute Priority: High Code(s): C25.9 - MALIGNANT NEOPLASM OF PANCREAS, UNSPECIFIED SNOMED Code(s): 6051878769246 Plan: Pancreatic adenocarcinoma -On 11/04 Dr. Murray reviewed with the pt that PET scan showed no evidence of metastatic disease. On initial evaluation at [facility] pt was deemed not resectable. Treatment intent, without resection, is not likely to be curable. She has been started on systemic therapy. Local radiation with concurrent low-dose chemotherapy can be considered as part of her regimen if she tolerates chemo- which she has not thus far-was another option, intent would be definitive treatment. Alternatively, if she has a good response to systemic chemotherapy, then she can be reevaluated for resectability. -Orders sent for chemotherapy dose reduction. Chemotherapy treatment has been ordered to be held this week -Will schedule clinic f/u to reassess prior to proceeding to next cycle Updated patient on POC Chemo induced N,V,D -2/2 chemo -N/V improved with current regimen. Abd pain improved, norco prn ordered -C-diff negative -Continues on Questran bid and lomotil qid. Diarrhea slowly improving. Will continue scheduled questran and lomotil and continue to monitor symptoms -Continue anti-emetics and hydration. Advised pt to request anti-emetics as needed and to use medications proactively if nausea persists. Encouraged increasing oral intake as tolerated Electrolyte abnormalities -2/2 poor oral intake, N,V,D -Parenteral supplements ordered, magnesium and potassium levels now normal -Pt has oral supplements at home Anemia, thrombocytopenia -Most likely secondary to chemotherapy superimposed by acute infection/UTI. No reports of bleeding, hematemesis, hematochezia or melena. Stool occult positive. Will continue to monitor -Hemoglobin stable, 10.1, no transfusion at this time. CBC daily -Thrombocytopenia resolved, platelets 181,000 today. -Blast cells 2% were noted. Today no blasts seen, this was likely reactive. Will continue to monitor
[2022-12-04 14:59] VITALS: BMI 23.5
--- NOTE | 2022-12-04 17:24 | P.PN ---
Subjective Progress Note Date: 12/04/22 Luz Marina Mallory, he is a 57-year-old female who presented to [facility] emergency room with a chief complaint of severe generalized weakness, diarrhea, and dehydration was no urine output for the last 2 days. She was evaluated in the emergency room vital examination on presentation re vealed a temperature of 97.7 heart rate 129 respiration 22 blood pressure 90/66 pulse ox 97% on room air Laboratory data revealed a white blood count of 1.6 hemoglobin 14.9 platelet count 50 INR 1.2 sodium 131 potassium 2.5 chloride 90 CO2 22 BUN 15 creatinine 0.59 Testing in the emergency room revealed chest x-ray done in the emergency room revealed no evidence for acute pulmonary disease, EKG done in the emergency room revealed sinus rhythm with frequent supraventricular premature complexes Patient was admitted to medical floor for further evaluation and treatment Past medical history is significant for history of pancreatic cancer with metastatic disease, patient was started on chemotherapy last month, history of asthma, history of gastroesophageal reflux disease, history of osteoarthritis, history of obstructive sleep apnea maintained on CPAP On review of systems at this time patient is alert and oriented 3 in no apparent distress, there is no fever or chills no headache or dizziness no chest pain, no shortness of breath no cough, she is still having some nausea no vomiting she is still having some diarrhea, there is no abdominal pain, no blood in the stools, she has burning with urination, she stated that she just started urinating, she had no urinary output for 2 days, there is no blood in the urine, she denies any weakness or numbness in any of the extremities there is no change in vision speech or gait. On 11/30/2022 patient was seen and examined on the medical floor she is alert and oriented 3 in no apparent distress, she is still complaining of poor appetite and very poor oral intake, she is complaining of nausea vomiting and diarrhea, stools for C. diff were ordered results are still pending, vital exam reveals a temperature of 97.4 pulse 76 respiration 16 blood pressure 118/87 pulse ox 99% on room air white blood count is 8.2 hemoglobin 9.4 platelet count still pending. On 12/01/2022 patient was seen and examined on the telemetry floor she is alert and oriented 3 in no apparent distress there is no fever or chills no headache or dizziness no chest pain no shortness of breath no cough she is still complaining of nausea and occasional vomiting there is no abdominal pain she is still complaining of diarrhea there is no blood in the stools however occult blood was positive there is no burning with urination no frequency or urgency and no hematuria On 12/02/2022 patient is alert and oriented 3 resting in bed. Hematology nephrology services are following. Patient remains on IV Rocephin for UTI. Blood pressures remained marginal. Patient denies chest pain or shortness of breath. Occasional vomiting and diarrhea. Denies any urinary burning or frequency On 12/03/2022 patient is alert and oriented 3. Patient reports improvement with nausea and vomiting. Will update to regular diet. Laboratory currently pending. Hematology service is following. Patient denies chest pain breath. Patient denies nausea vomiting or diarrhea. Patient denies any urinary burning frequency. On 12/04/2022 patient was seen and examined on the medical floor she is alert and oriented 3 in no apparent distress she is still complaining of some nausea but still complaining of significant diarrhea, otherwise she denies any complaints there is no fever or chills no headache or dizziness no chest pain no shortness of breath no cough no blood in the stools no burning with urination no frequency or urgency and no hematuria Objective - Vital Signs Vital signs: Vital Signs Temp 98.3 F 12/04/22 12:35 Pulse 80 12/04/22 12:35 Resp 16 12/04/22 12:35 BP 102/69 12/04/22 12:35 Pulse Ox 97 12/04/22 12:35 FiO2 Intake & Output 12/03/22 12/04/22 12/04/22 18:59 06:59 18:59 Intake Total 200 Balance 200 Weight 47.627 kg Intake: Oral 200 Other: Voiding Method Toilet # Voids 2 1 1 - Exam In general patient is alert and oriented x 3 in no distress HEENT head normocephalic and atraumatic Neck is supple no JVD no goiter no lymphadenopathy no carotid bruit Chest examination is clear to auscultation no crackles no wheezing Cardiac exam reveals regular heart sounds S1 and S2 no gallops no murmurs Abdomen is soft nontender no organomegaly with normal bowel sounds Extremity exam reveals no edema no cyanosis or clubbing Neurological examination reveals no gross focal deficits - Labs CBC & Chem 7: 12/04/22 05:41 12/04/22 05:41 Labs: Abnormal Lab Results - Last 24 Hours (Table) 12/04/22 12/04/22 Range/Units 05:41 05:41 WBC 11.4 H (3.8-10.6) k/uL Hgb 10.1 L (11.4-16.0) gm/dL Hct 31.0 L (34.0-46.0) % Neutrophils # (Manual) 8.20 H (1.3-7.7) k/uL Metamyelocytes # (Man) 0.68 H (0) k/uL Myelocytes # (Manual) 0.23 H (0) k/uL Chloride 111 H (98-107) mmol/L BUN 2 L (7-17) mg/dL Calcium 8.1 L (8.4-10.2) mg/dL Total Protein 4.3 L (6.3-8.2) g/dL Albumin 2.2 L (3.5-5.0) g/dL Assessment and Plan Plan: Dehydration, with severe electrolyte imbalance, with hyponatremia hypokalemia and hypomagnesemia Poor urinary output Evidence of urinary tract infection Leukopenia and thrombocytopenia likely related to chemotherapy Recent diagnosis with creatinine cancer with metastatic disease, patient was recently started on chemotherapy Underlying history of osteoarthritis Underlying history of obstructive sleep apnea maintained on CPAP At this time patient was admitted to medical floor She was started on IV fluid Electrolyte correction protocols She was also started on IV ceftriaxone for urinary tract infection Nephrology and oncology consultation was requested Will recheck labs in a.m. Will follow closely
[2022-12-04] MEDS: ATORVASTATIN 10 MG TAB PO SCH (20:31)
[2022-12-04] MEDS: lamoTRIgine 25 MG TAB PO SCH (20:44)
[2022-12-05] MEDS: IPRATROPIUM 0.5 MG/2.5 ML NEBU INHALATION SCH ×4 (07:24→18:29)
[2022-12-05] MEDS: SYMBICORT 80-4.5 MCG INHALER INHALATION SCH ×2 (07:24→18:29)
[2022-12-05 07:38] LABS: HCT 37.1 % (34.0-46.0); HGB 11.9 gm/dL (11.4-16.0); MCH 26.6 pg (25.0-35.0); MCHC 32.2 g/dL (31.0-37.0); MCV 82.6 fL (80.0-100.0); Mean Platelet Volume 8.9; Platelet Count 269 k/uL (150-450); RBC 4.49 m/uL (3.80-5.40); RDW 15.8 % (11.5-15.5); WBC 15.1 k/uL (3.8-10.6)
[2022-12-05 08:22] LABS: Band Neutrophils % 4 %; Lymphocytes # (M) 2.11 k/uL (1.0-4.8); Metamyelocytes # (M) 0.91 k/uL (0); Metamyelocytes % 6 %; Monocytes # (M) 1.51 k/uL (0-1.0); Myelocytes # (M) 1.21 k/uL (0); Myelocytes % 8 %; Neutrophils % (M) 59 %; Nucleated Red Blood Cells 0 /100 WBC (0-0); Promyelocytes # (M) 0.15 k/uL (0); Promyelocytes % 1 %; Total Cells Counted 200
[2022-12-05 08:42] LABS: ALT 17 U/L (4-34); AST 30 U/L (14-36); African American GFR (CKD) >90 (>60 ml/min/1.73 sqM); Albumin 2.4 g/dL (3.5-5.0); Alkaline Phosphatase 97 U/L (38-126); Anion Gap 9 mmol/L; Blood Urea Nitrogen 2 mg/dL (7-17); Calcium 8.5 mg/dL (8.4-10.2); Carbon Dioxide 19 mmol/L (22-30); Chloride 109 mmol/L (98-107); Globulin 2.5 g/dL; Glucose 78 mg/dL (74-99); Non-African American GFR(CKD) >90 (>60 ml/min/1.73 sqM); Potassium 4.4 mmol/L (3.5-5.1); Sodium 137 mmol/L (137-145); Total Bilirubin 0.5 mg/dL (0.2-1.3); Total Protein 4.9 g/dL (6.3-8.2)
[2022-12-05] MEDS: SUCRALFATE 1 GM TAB PO SCH ×3 (08:52→17:11)
[2022-12-05] MEDS: PANTOPRAZOLE 40 MG TABLET PO SCH ×2 (08:52→17:10)
[2022-12-05] MEDS: METOPROLOL TARTRATE 25 MG TAB PO SCH ×2 (08:53→21:37)
[2022-12-05] MEDS: DIPHENOX-ATROP 2.5-0.025 MG 1 EACH TAB PO SCH ×5 (08:53→21:35)
[2022-12-05] MEDS: FAMOTIDINE 20 MG TAB PO SCH (08:53)
[2022-12-05] MEDS: FERROUS SULFATE 325 MG TAB PO SCH (08:53)
[2022-12-05] MEDS: DULoxetine HCL 30 MG CAPSULE.DR PO SCH ×2 (08:53→21:36)
[2022-12-05] MEDS: CHOLESTYRAMINE (WITH SUGAR) 4 GM PACKET PO SCH ×4 (08:53→23:58)
[2022-12-05] MEDS: MIDODRINE 5 MG TAB PO SCH ×3 (08:54→21:36)
[2022-12-05] MEDS: POTASSIUM CHLORIDE ER 20 MEQ TAB.ER PO SCH ×2 (08:54→21:36)
--- NOTE | 2022-12-05 10:15 | P.PN ---
Subjective Progress Note Date: 12/05/22 Luz Marina Mallory, he is a 57-year-old female who presented to [facility] emergency room with a chief complaint of severe generalized weakness, diarrhea, and dehydration was no urine output for the last 2 days. She was evaluated in the emergency room vital examination on presentation reve aled a temperature of 97.7 heart rate 129 respiration 22 blood pressure 90/66 pulse ox 97% on room air Laboratory data revealed a white blood count of 1.6 hemoglobin 14.9 platelet count 50 INR 1.2 sodium 131 potassium 2.5 chloride 90 CO2 22 BUN 15 creatinine 0.59 Testing in the emergency room revealed chest x-ray done in the emergency room revealed no evidence for acute pulmonary disease, EKG done in the emergency room revealed sinus rhythm with frequent supraventricular premature complexes Patient was admitted to medical floor for further evaluation and treatment Past medical history is significant for history of pancreatic cancer with metastatic disease, patient was started on chemotherapy last month, history of asthma, history of gastroesophageal reflux disease, history of osteoarthritis, history of obstructive sleep apnea maintained on CPAP On review of systems at this time patient is alert and oriented 3 in no apparent distress, there is no fever or chills no headache or dizziness no chest pain, no shortness of breath no cough, she is still having some nausea no vomiting she is still having some diarrhea, there is no abdominal pain, no blood in the stools, she has burning with urination, she stated that she just started urinating, she had no urinary output for 2 days, there is no blood in the urine, she denies any weakness or numbness in any of the extremities there is no change in vision speech or gait. On 11/30/2022 patient was seen and examined on the medical floor she is alert and oriented 3 in no apparent distress, she is still complaining of poor appetite and very poor oral intake, she is complaining of nausea vomiting and diarrhea, stools for C. diff were ordered results are still pending, vital exam reveals a temperature of 97.4 pulse 76 respiration 16 blood pressure 118/87 pulse ox 99% on room air white blood count is 8.2 hemoglobin 9.4 platelet count still pending. On 12/01/2022 patient was seen and examined on the telemetry floor she is alert and oriented 3 in no apparent distress there is no fever or chills no headache or dizziness no chest pain no shortness of breath no cough she is still complaining of nausea and occasional vomiting there is no abdominal pain she is still complaining of diarrhea there is no blood in the stools however occult blood was positive there is no burning with urination no frequency or urgency and no hematuria On 12/02/2022 patient is alert and oriented 3 resting in bed. Hematology nephrology services are following. Patient remains on IV Rocephin for UTI. Blood pressures remained marginal. Patient denies chest pain or shortness of breath. Occasional vomiting and diarrhea. Denies any urinary burning or frequency On 12/03/2022 patient is alert and oriented 3. Patient reports improvement with nausea and vomiting. Will update to regular diet. Laboratory currently pending. Hematology service is following. Patient denies chest pain breath. Patient denies nausea vomiting or diarrhea. Patient denies any urinary burning frequency. On 12/04/2022 patient was seen and examined on the medical floor she is alert and oriented 3 in no apparent distress she is still complaining of some nausea but still complaining of significant diarrhea, otherwise she denies any complaints there is no fever or chills no headache or dizziness no chest pain no shortness of breath no cough no blood in the stools no burning with urination no frequency or urgency and no hematuria On 02/04/2023 patient is alert and oriented 3. Patient reports improvement with nausea vomiting and diarrhea. Patient has been tolerating diet. White blood cell count elevated at 15.1 will consult infectious disease services patient currently on Rocephin for UTI. Objective - Vital Signs Vital signs: Vital Signs Temp 98.4 F 12/05/22 07:22 Pulse 90 12/05/22 07:24 Resp 16 12/05/22 07:22 BP 112/48 12/05/22 07:22 Pulse Ox 99 12/05/22 07:22 FiO2 Intake & Output 12/04/22 12/05/22 12/05/22 18:59 06:59 18:59 Weight 47.627 kg Other: Voiding Method Toilet # Voids 1 1 - Exam In general patient is alert and oriented x 3 in no distress HEENT head normocephalic and atraumatic Neck is supple no JVD no goiter no lymphadenopathy no carotid bruit Chest examination is clear to auscultation no crackles no wheezing Cardiac exam reveals regular heart sounds S1 and S2 no gallops no murmurs Abdomen is soft nontender no organomegaly with normal bowel sounds Extremity exam reveals no edema no cyanosis or clubbing Neurological examination reveals no gross focal deficits - Labs CBC & Chem 7: 12/05/22 06:16 12/05/22 06:16 Labs: Abnormal Lab Results - Last 24 Hours (Table) 12/05/22 12/05/22 Range/Units 06:16 06:16 WBC 15.1 H (3.8-10.6) k/uL RDW 15.8 H (11.5-15.5) % Neutrophils # (Manual) 9.50 H (1.3-7.7) k/uL Monocytes # (Manual) 1.51 H (0-1.0) k/uL Metamyelocytes # (Man) 0.91 H (0) k/uL Myelocytes # (Manual) 1.21 H (0) k/uL Promyelocytes # (Man) 0.15 H (0) k/uL Chloride 109 H (98-107) mmol/L Carbon Dioxide 19 L (22-30) mmol/L BUN 2 L (7-17) mg/dL Total Protein 4.9 L (6.3-8.2) g/dL Albumin 2.4 L (3.5-5.0) g/dL Assessment and Plan Assessment: Dehydration, with severe electrolyte imbalance, with hyponatremia hypokalemia and hypomagnesemia Poor urinary output Evidence of urinary tract infection Leukopenia and thrombocytopenia likely related to chemotherapy Recent diagnosis with pancreatic cancer with metastatic disease, patient was recently started on chemotherapy Underlying history of osteoarthritis Underlying history of obstructive sleep apnea maintained on CPAP At this time patient was admitted to medical floor She was started on IV fluid Electrolyte correction protocols She was also started on IV ceftriaxone for urinary tract infection Nephrology and oncology consultation was requested infectious disease consulted Will recheck labs in a.m. Will follow closely
[2022-12-05] MEDS: IPRATROPIUM-ALBUTEROL 3 ML NEB INHALATION PRN ×3 (10:51→18:29)
--- NOTE | 2022-12-05 12:16 | P.PN ---
Subjective Patient is seen for follow-up for hyperkalemia. No significant complaints today Serum creatinine is 0.5. Tolerating oral intake. Nausea and diarrhea much improved. Maintained on IV fluids. Objective - Vital Signs Vital signs: Vital Signs Temp 98.4 F 12/05/22 07:22 Pulse 94 12/05/22 11:02 Resp 16 12/05/22 07:22 BP 112/48 12/05/22 07:22 Pulse Ox 99 12/05/22 07:22 FiO2 Intake & Output 12/04/22 12/05/22 12/05/22 18:59 06:59 18:59 Output Total 2 Balance -2 Weight 47.627 kg Output: Stool 2 Other: Voiding Method Toilet Toilet # Voids 1 1 2 # Bowel Movements 1 - Exam Patient is awake, comfortable, no acute distress Examination of the heart S1 and S2 Examination lungs bilateral breath sounds are heard Abdomen is soft nontender Exertion lower extremity shows no evidence of edema TRANSITION MGR exam grossly intact - Labs CBC & Chem 7: 12/05/22 06:16 12/05/22 06:16 Labs: Abnormal Lab Results - Last 24 Hours (Table) 12/05/22 12/05/22 Range/Units 06:16 06:16 WBC 15.1 H (3.8-10.6) k/uL RDW 15.8 H (11.5-15.5) % Neutrophils # (Manual) 9.50 H (1.3-7.7) k/uL Monocytes # (Manual) 1.51 H (0-1.0) k/uL Metamyelocytes # (Man) 0.91 H (0) k/uL Myelocytes # (Manual) 1.21 H (0) k/uL Promyelocytes # (Man) 0.15 H (0) k/uL Chloride 109 H (98-107) mmol/L Carbon Dioxide 19 L (22-30) mmol/L BUN 2 L (7-17) mg/dL Total Protein 4.9 L (6.3-8.2) g/dL Albumin 2.4 L (3.5-5.0) g/dL Assessment and Plan Assessment: 1. Hypokalemia from poor intake and upper and lower GI losses. Magnesium normal on admission. Replace. Improved. 2. Pancreatic cancer with metastasis. Last chemotherapy 11/17/2022. 3. Hypovolemic hyponatremia. Improved with IV hydration. 4. Non-gap metabolic acidosis secondary to diarrhea Plan: Continue to encourage increased oral intake
[2022-12-05] MEDS: SODIUM CHLORIDE 0.9% 1,000 ML IV SCH ×2 (12:47→23:59)
--- NOTE | 2022-12-05 15:34 | P.PN ---
Subjective Progress Note Date: 12/05/22 Principal diagnosis: pancreatic cancer, n/v Patient is reporting that she feels well. Denies nausea and vomiting. Tolerating regular diet well. Diarrhea has had some improvement, but persisting. Reports 3 episodes of diarrhea this morning. She continues on Questran bid and lomotil qid. Thrombocytopenia resolved, platelets 259,000. WBC increased to 15.1 today. Patient continues on Rocephin for UTI. Patient denies urinary frequency and dysuria. Denies URI symptoms. Patient remains afebrile Objective - Vital Signs Vital signs: Vital Signs Temp 98.5 F 12/05/22 12:35 Pulse 76 12/05/22 12:35 Resp 16 12/05/22 12:35 BP 100/67 12/05/22 12:35 Pulse Ox 100 12/05/22 12:35 FiO2 Intake & Output 12/04/22 12/05/22 12/05/22 18:59 06:59 18:59 Output Total 2 Balance -2 Weight 47.627 kg Output: Stool 2 Other: Voiding Method Toilet Toilet # Voids 1 1 1 # Bowel Movements 1 - Constitutional General appearance: Present: average body habitus, no acute distress - EENT Eyes: Present: anicteric sclerae, EOMI ENT: Present: hearing grossly normal - Respiratory Details: breathing is even and unlabored - Cardiovascular Details: skin warm and dry - Gastrointestinal General gastrointestinal: Present: soft. Absent: tenderness - Integumentary Integumentary: Absent: cyanotic, jaundiced - Neurologic Neurologic Comment(s): grossly intact - Musculoskeletal Musculoskeletal: Present: strength equal bilaterally - Psychiatric Psychiatric: Present: A&O x's 3, appropriate affect, intact judgment & insight - Labs CBC & Chem 7: 12/05/22 06:16 12/05/22 06:16 Labs: Abnormal Lab Results - Last 24 Hours (Table) 12/05/22 12/05/22 Range/Units 06:16 06:16 WBC 15.1 H (3.8-10.6) k/uL RDW 15.8 H (11.5-15.5) % Neutrophils # (Manual) 9.50 H (1.3-7.7) k/uL Monocytes # (Manual) 1.51 H (0-1.0) k/uL Metamyelocytes # (Man) 0.91 H (0) k/uL Myelocytes # (Manual) 1.21 H (0) k/uL Promyelocytes # (Man) 0.15 H (0) k/uL Chloride 109 H (98-107) mmol/L Carbon Dioxide 19 L (22-30) mmol/L BUN 2 L (7-17) mg/dL Total Protein 4.9 L (6.3-8.2) g/dL Albumin 2.4 L (3.5-5.0) g/dL Assessment and Plan (1) Chemotherapy induced diarrhea Current Visit: Yes Status: Acute Code(s): K52.1 - TOXIC GASTROENTERITIS AND COLITIS; T45.1X5A - ADVERSE EFFECT OF ANTINEOPLASTIC AND IMMUNOSUP DRUGS, INIT SNOMED Code(s): 857805832 (2) Chemotherapy induced nausea and vomiting Current Visit: Yes Status: Acute Priority: High Code(s): R11.2 - NAUSEA WITH VOMITING, UNSPECIFIED; T45.1X5A - ADVERSE EFFECT OF ANTINEOPLASTIC AND IMMUNOSUP DRUGS, INIT SNOMED Code(s): 32487742 (3) Primary pancreatic adenocarcinoma Current Visit: Yes Status: Acute Priority: High Code(s): C25.9 - MALIGNANT NEOPLASM OF PANCREAS, UNSPECIFIED SNOMED Code(s): 7407751243138 Plan: Pancreatic adenocarcinoma -On 11/04 Dr. Murray reviewed with the pt that PET scan showed no evidence of metastatic disease. On initial evaluation at [facility] pt was deemed not resectable. Treatment intent, without resection, is not likely to be curable. She has been started on systemic therapy. Local radiation with concurrent low-dose chemotherapy can be considered as part of her regimen if she tolerates chemo- which she has not thus far-was another option, intent would be definitive treatment. Alternatively, if she has a good response to systemic chemotherapy, then she can be reevaluated for resectability. -Orders sent for chemotherapy dose reduction. Chemotherapy treatment has been ordered to be held this week -Will schedule clinic f/u to reassess prior to proceeding to next cycle Updated patient on POC Chemo induced N,V,D -2/2 chemo -N/V improved with current regimen. Abd pain improved, norco prn ordered -C-diff negative -Continues on Questran bid and lomotil qid. Diarrhea slowly improving, but persisting. Will increase questran to qid and continue lomotil qid. If symptoms don't improve will add creon -Continue anti-emetics prn and hydration. Encouraged increasing oral intake as tolerated Electrolyte abnormalities -2/2 poor oral intake, N,V,D -Parenteral supplements ordered, magnesium and potassium levels now normal -Pt has oral supplements at home Anemia, thrombocytopenia -Most likely secondary to chemotherapy superimposed by acute infection/UTI. No reports of bleeding, hematemesis, hematochezia or melena. Stool occult positive. Will continue to monitor -Hemoglobin stable, 11.9. Thrombocytopenia resolved, platelets 269,000. . -Blast cells 2% were noted. Now resolved. this was likely reactive. -WBC increased today to 15.1. Patient did receive GCSF 2 weeks ago with last chemo cycle. She is also out of may so leukocytosis could be rebound. No reported new s/s, remains afebrile -Will continue to monitor
[2022-12-05 16:40] LABS: ALT 17 U/L (8-44); AST 22 U/L (13-35); Albumin 2.7 d/dL (3.8-4.9); Albumin/Globulin Ratio 1.23 Ratio (1.60-3.17); Alkaline Phosphatase 95 U/L (41-126); BUN/Creat Ratio <5.00 Ratio (12.00-20.00); Blood Urea Nitrogen <3.5 mg/dL (9.0-27.0); Calcium 8.8 mg/dL (8.7-10.3); Carbon Dioxide 21.4 mmol/L (21.6-31.8); Chloride 106 mmol/L (96-109); Globulin 2.2 d/dL (1.6-3.3); Glucose 106 mg/dL (70-110); Potassium 4.3 mmol/L (3.5-5.5); Sodium 141 mmol/L (135-145); Total Bilirubin 0.2 mg/dL (0.3-1.2); Total Protein 4.9 d/dL (6.2-8.2)
[2022-12-05 16:59] LABS: Basophils # (M) 0.15 X 10*3/uL (0.00-0.10); Crenated RBC 2+; Eosinophils # (M) 0 X 10*3/uL (0.04-0.35); HCT 32.4 % (37.2-46.3); HGB 10.2 d/dL (12.0-15.0); MCH 26.5 pg (27.0-32.0); MCHC 31.5 d/dL (32.0-37.0); MCV 84.2 FL (80.0-97.0); Mean Platelet Volume 11.1 FL (9.5-12.2); Metamyelocytes % 12 % (0-0); Monocytes # (M) 1.05 X 10*3/uL (0.20-1.00); Myelocytes % 3 % (0-0); NRBC Per 100 WBC 0.08 X 10*3/uL (0.00-0.01); Neutrophils # (M) 10.91 X 10*3/uL (1.80-7.70); Neutrophils % (M) 73 %; Nucleated Red Blood Cells 1 /100 WBCS; Platelet Count 244 X 10*3/uL (140-440); RBC 3.85 X 10*6/uL (4.10-5.20); Toxic Granulation 2+; WBC 14.95 X 10*3/uL (4.50-10.00)
[2022-12-05] MEDS: ATORVASTATIN 10 MG TAB PO SCH (21:36)
[2022-12-05] MEDS: lamoTRIgine 25 MG TAB PO SCH (21:36)
--- NOTE | 2022-12-05 22:33 | P.CONS ---
History of Present Illness - Reason for Consult Consult date: 12/05/22 Elevated WBC, chemo, UTI Requesting physician: Carole Dawkins - Chief Complaint Weakness and diarrhea x few days - History of Present Illness Patient is a 57-year-old female with a past medical history significant for asthma COPD reflux pancreatic cancer last chemo on November 17, 2022 presented to the hospital about a week ago for evaluation of diarrhea wea kness along with vomiting and not feeling well patient denies having any fever on presentation to hospital and no fever tachycardia in the last 1 week patient did have a leukopenia on admission however the white count is slowly trending up since 12/02/2022 up to 14.95 today patient did have a normal creatinine and liver enzymes are normal stool for C. difficile was negative no cultures has been done patient did have a chest x-ray no evidence for acute pulmonary disease infectious disease was consulted because of her elevated white count, patient did mention that her nausea vomiting has improved she is able to keep food down she did have some vague lower abdominal pain mofetil aching mild in intensity without radiation still having diarrhea about 3 loose stools today but denies any blood or mucus in the stool denies having any urinary symptoms Review of Systems Positive point and negatives has been mentioned in the HPI, complete review of systems was performed and all other systems are negative Past Medical History Past Medical History: Asthma, Cancer, COPD, GERD/Reflux, Memory Impairment, Musculoskeletal Disorder, Osteoarthritis (OA), Sleep Apnea/CPAP/BIPAP Additional Past Medical History / Comment(s): PT STATES SOME MEMORY PROBLEMS AND LEARNING DISABILITY, HAS FRIEND WHO HELPS HER WITH MEDICATIONS AND APPTS., STATES MUSCLE SPASMS, BACK PROBLEMS WITH DISC DISEASE, ANEMIA, URINARY URGENCY, PROBLEMS WITH DIARRHEA & CONSTIPATION.Pancreatic CA History of Any Multi-Drug Resistant Organisms: None Reported Past Surgical History: Section, Cholecystectomy, Hysterectomy Additional Past Surgical History / Comment(s): 2 C-SECTIONS, PARTIAL HYSTERECTOMY, BERNADETTE REMOVED. 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 [employer] Smoking Status: Former smoker Past Alcohol Use History: Heavy (quit in 2021) Past Drug Use History: None Reported - Past Family History Mother Family Medical History: Cancer Additional Family Medical History / Comment(s): LUNG AND BRAIN CA Medications and Allergies Home Medications Medication Instructions Recorded Confirmed Type Albuterol Inhaler [Ventolin Hfa 1 - 2 puff INHALATION RT-Q6H PRN 11/03/22 11/28/22 History Inhaler] Aspirin EC [Ecotrin Low Dose] 81 mg PO DAILY 11/03/22 11/28/22 History DULoxetine HCL [Cymbalta] 30 mg PO BID 11/03/22 11/28/22 History Ferrous Sulfate [Iron] 325 mg PO DAILY 11/03/22 11/28/22 History Fluticasone/Umeclidin/Vilanter 1 puff INHALATION RT-DAILY 11/03/22 11/28/22 History [Trelegy Ellipta 100-62.5-25] Metoprolol Tartrate [Lopressor] 25 mg PO BID 11/03/22 11/28/22 History Midodrine HCl 5 mg PO TID 11/03/22 11/28/22 History Potassium Chloride ER [K-Dur 20] 20 meq PO BID 11/03/22 11/28/22 History calcitrioL [Calcitriol] 0.25 mcg PO DAILY 11/03/22 11/28/22 History Budesonide [Pulmicort] 0.5 mg INHALATION RT-BID 11/28/22 11/28/22 History Cholestyramine (with Sugar) 4 gm PO BID 11/28/22 11/28/22 History [Cholestyramine Powder] Famotidine [Pepcid] 40 mg PO DAILY 11/28/22 11/28/22 History Ipratropium-Albuterol Nebulize 3 ml INHALATION RT-Q6H PRN 11/28/22 11/28/22 History [Duoneb 0.5 mg-3 mg/3 ml Soln] LORazepam [Ativan] 0.5 mg PO Q8HR PRN 11/28/22 11/28/22 History Ondansetron [Zofran] 4 mg PO Q6H PRN 11/28/22 11/28/22 History Pantoprazole Sodium [Protonix] 40 mg PO BID 11/28/22 11/28/22 History Rosuvastatin Calcium 5 mg PO HS 11/28/22 11/28/22 History lamoTRIgine [LaMICtal] 75 mg PO HS 11/28/22 11/28/22 History Diphenox-Atrop 2.5-0.025 mg 1 each PO QID PRN 3 Days #12 tab 12/07/22 Rx [Lomotil] Sucralfate [Carafate] 1 gm PO AC-TID 7 Days #21 tab 12/07/22 Rx Allergies Allergy/AdvReac Type Severity Reaction Status Date / Time No Known Allergies Allergy Verified 11/28/22 15:42 Physical Exam Vitals: Vital Signs Temp Pulse Pulse Resp BP Pulse Ox 12/05/22 12:35 98.5 F 76 16 100/67 100 12/05/22 11:02 94 12/05/22 10:52 92 12/05/22 07:24 90 12/05/22 07:22 98.4 F 76 16 112/48 99 12/05/22 01:44 98.1 F 74 18 107/74 100 12/04/22 20:00 18 12/04/22 19:27 96 12/04/22 19:15 95 12/04/22 19:08 98.0 F 78 18 107/73 100 Intake and Output 12/04/22 12/05/22 12/05/22 22:59 06:59 14:59 Output Total 2 Balance -2 Output: Stool 2 Other: Voiding Method Toilet Toilet # Voids 1 1 1 # Bowel Movements 1 GENERAL DESCRIPTION: Middle-aged female lying in bed, no distress. No tachypnea or accessory muscle of respiration use. HEENT: Shows Pallor , no scleral icterus. Oral mucous membrane is dry. No pharyngeal erythema or thrush NECK: Trachea central, no thyromegaly. LUNGS: Unlabored breathing. Clear to auscultation anteriorly. No wheeze or crackle. HEART: S1, S2, regular rate and rhythm. No loud murmur ABDOMEN: Soft, no tenderness , EXTREMITIES: No edema of feet. SKIN: No rash, no masses palpable. NEUROLOGICAL: The patient is awake, alert, oriented x3, mood and affect normal. Results CBC & Chem 7: 12/05/22 09:59 12/05/22 09:59 Labs: Abnormal Lab Results - Last 24 Hours (Table) 12/05/22 12/05/22 Range/Units 06:16 06:16 WBC 15.1 H (3.8-10.6) k/uL RDW 15.8 H (11.5-15.5) % Neutrophils # (Manual) 9.50 H (1.3-7.7) k/uL Monocytes # (Manual) 1.51 H (0-1.0) k/uL Metamyelocytes # (Man) 0.91 H (0) k/uL Myelocytes # (Manual) 1.21 H (0) k/uL Promyelocytes # (Man) 0.15 H (0) k/uL Chloride 109 H (98-107) mmol/L Carbon Dioxide 19 L (22-30) mmol/L BUN 2 L (7-17) mg/dL Total Protein 4.9 L (6.3-8.2) g/dL Albumin 2.4 L (3.5-5.0) g/dL Assessment and Plan (1) Diarrhea Status: Acute Priority: High Code(s): R19.7 - DIARRHEA, UNSPECIFIED SNOMED Code(s): 54388434 (2) Leukocytosis Status: Acute Code(s): D72.829 - ELEVATED WHITE BLOOD CELL COUNT, UNSPECIFIED SNOMED Code(s): 103895988 Plan: Patient with leukocytosis in this patient who do have a history of metastatic pancreatic cancer last chemotherapy was on November 17, 2022 admitted to the hospital about a week ago mostly for nausea vomiting and diarrhea patient nausea vomiting has improved however did have a diarrhea with a question of infectious versus noninfectious etiology,leukocytosis possibly related to G-CSF patient received after chemotherapy as no no fever during this hospital stay does not look toxic and no obvious focus of infection 2--we will check inflammatory markers and blood cultures and check stool culture We will follow on clinical condition and cultures to further adjust medication if needed Thank you for this consultation we will follow the patient along with you Dictation was produced using [employer] dictation software. please excuse any grammatical, word or spelling errors. Time with Patient: Greater than 30
[2022-12-06] MEDS: CHOLESTYRAMINE (WITH SUGAR) 4 GM PACKET PO SCH ×3 (06:17→17:43)
[2022-12-06] MEDS: SYMBICORT 80-4.5 MCG INHALER INHALATION SCH ×2 (07:42→18:44)
[2022-12-06] MEDS: IPRATROPIUM 0.5 MG/2.5 ML NEBU INHALATION SCH ×4 (07:42→18:44)
[2022-12-06] MEDS: MIDODRINE 5 MG TAB PO SCH ×3 (07:49→17:43)
[2022-12-06] MEDS: SUCRALFATE 1 GM TAB PO SCH ×3 (07:49→17:43)
[2022-12-06] MEDS: PANTOPRAZOLE 40 MG TABLET PO SCH ×2 (07:49→17:43)
[2022-12-06] MEDS: POTASSIUM CHLORIDE ER 20 MEQ TAB.ER PO SCH ×2 (07:50→20:56)
[2022-12-06] MEDS: FERROUS SULFATE 325 MG TAB PO SCH (07:50)
[2022-12-06] MEDS: DULoxetine HCL 30 MG CAPSULE.DR PO SCH ×2 (07:50→20:56)
[2022-12-06] MEDS: DIPHENOX-ATROP 2.5-0.025 MG 1 EACH TAB PO SCH ×2 (07:50→13:11)
[2022-12-06] MEDS: FAMOTIDINE 20 MG TAB PO SCH (07:50)
[2022-12-06] MEDS: METOPROLOL TARTRATE 25 MG TAB PO SCH ×2 (07:50→20:56)
--- NOTE | 2022-12-06 10:46 | P.PN ---
Subjective Progress Note Date: 12/06/22 Luz Marina Mallory, he is a 57-year-old female who presented to [facility] emergency room with a chief complaint of severe generalized weakness, diarrhea, and dehydration was no urine output for the last 2 days. She was evaluated in the emergency room vital examination on presentation re vealed a temperature of 97.7 heart rate 129 respiration 22 blood pressure 90/66 pulse ox 97% on room air Laboratory data revealed a white blood count of 1.6 hemoglobin 14.9 platelet count 50 INR 1.2 sodium 131 potassium 2.5 chloride 90 CO2 22 BUN 15 creatinine 0.59 Testing in the emergency room revealed chest x-ray done in the emergency room revealed no evidence for acute pulmonary disease, EKG done in the emergency room revealed sinus rhythm with frequent supraventricular premature complexes Patient was admitted to medical floor for further evaluation and treatment Past medical history is significant for history of pancreatic cancer with metastatic disease, patient was started on chemotherapy last month, history of asthma, history of gastroesophageal reflux disease, history of osteoarthritis, history of obstructive sleep apnea maintained on CPAP On review of systems at this time patient is alert and oriented 3 in no apparent distress, there is no fever or chills no headache or dizziness no chest pain, no shortness of breath no cough, she is still having some nausea no vomiting she is still having some diarrhea, there is no abdominal pain, no blood in the stools, she has burning with urination, she stated that she just started urinating, she had no urinary output for 2 days, there is no blood in the urine, she denies any weakness or numbness in any of the extremities there is no change in vision speech or gait. On 11/30/2022 patient was seen and examined on the medical floor she is alert and oriented 3 in no apparent distress, she is still complaining of poor appetite and very poor oral intake, she is complaining of nausea vomiting and diarrhea, stools for C. diff were ordered results are still pending, vital exam reveals a temperature of 97.4 pulse 76 respiration 16 blood pressure 118/87 pulse ox 99% on room air white blood count is 8.2 hemoglobin 9.4 platelet count still pending. On 12/01/2022 patient was seen and examined on the telemetry floor she is alert and oriented 3 in no apparent distress there is no fever or chills no headache or dizziness no chest pain no shortness of breath no cough she is still complaining of nausea and occasional vomiting there is no abdominal pain she is still complaining of diarrhea there is no blood in the stools however occult blood was positive there is no burning with urination no frequency or urgency and no hematuria On 12/02/2022 patient is alert and oriented 3 resting in bed. Hematology nephrology services are following. Patient remains on IV Rocephin for UTI. Blood pressures remained marginal. Patient denies chest pain or shortness of breath. Occasional vomiting and diarrhea. Denies any urinary burning or frequency On 12/03/2022 patient is alert and oriented 3. Patient reports improvement with nausea and vomiting. Will update to regular diet. Laboratory currently pending. Hematology service is following. Patient denies chest pain breath. Patient denies nausea vomiting or diarrhea. Patient denies any urinary burning frequency. On 12/04/2022 patient was seen and examined on the medical floor she is alert and oriented 3 in no apparent distress she is still complaining of some nausea but still complaining of significant diarrhea, otherwise she denies any complaints there is no fever or chills no headache or dizziness no chest pain no shortness of breath no cough no blood in the stools no burning with urination no frequency or urgency and no hematuria On 02/04/2023 patient is alert and oriented 3. Patient reports improvement with nausea vomiting and diarrhea. Patient has been tolerating diet. White blood cell count elevated at 15.1 will consult infectious disease services patient currently on Rocephin for UTI. On 02/05/2023 patient was seen and examined on the medical floor she is alert and oriented 3 in no apparent distress there is no fever or chills no headache or dizziness no chest pain no shortness of breath no cough there is some improvement with nausea and diarrhea no blood in the stools no burning with urination no frequency or urgency and no hematuria. Patient still has significant leukocytosis, infectious disease consultation review, cultures are pending, possible discharge to home in the next 1-2 days. Objective - Vital Signs Vital signs: Vital Signs Temp 98.1 F 12/06/22 07:45 Pulse 82 12/06/22 07:45 Resp 16 12/06/22 07:45 BP 110/73 12/06/22 07:45 Pulse Ox 99 12/06/22 07:45 FiO2 Intake & Output 12/05/22 12/06/22 12/06/22 18:59 06:59 18:59 Output Total 2 2 Balance -2 -2 Output: Stool 2 2 Other: Voiding Method Toilet Toilet Toilet # Voids 1 1 # Bowel Movements 1 - Exam In general patient is alert and oriented x 3 in no distress HEENT head normocephalic and atraumatic Neck is supple no JVD no goiter no lymphadenopathy no carotid bruit Chest examination is clear to auscultation no crackles no wheezing Cardiac exam reveals regular heart sounds S1 and S2 no gallops no murmurs Abdomen is soft nontender no organomegaly with normal bowel sounds Extremity exam reveals no edema no cyanosis or clubbing Neurological examination reveals no gross focal deficits - Labs CBC & Chem 7: 12/05/22 09:59 12/05/22 09:59 Labs: Abnormal Lab Results - Last 24 Hours (Table) 12/05/22 12/05/22 12/06/22 Range/Units 09:59 09:59 06:29 WBC 14.95 H (4.50-10.00) X 10*3/uL RBC 3.85 L (4.10-5.20) X 10*6/uL Hgb 10.2 L (12.0-15.0) d/dL Hct 32.4 L (37.2-46.3) % MCH 26.5 L (27.0-32.0) pg MCHC 31.5 L (32.0-37.0) d/dL RDW 16.0 H (11.5-14.5) % Lymphocytes # (Manual) 0.60 L (0.90-5.00) X 10*3/uL Monocytes # (Manual) 1.05 H (0.20-1.00) X 10*3/uL Eosinophils # (Manual) 0 L (0.04-0.35) X 10*3/uL Basophils # (Manual) 0.15 H (0.00-0.10) X 10*3/uL NRBC/100 WBC Diff 0.08 H (0.00-0.01) X 10*3/uL Toxic Granulation 2+ A Crenated Cell 2+ A Carbon Dioxide 21.4 L (21.6-31.8) mmol/L Anion Gap 13.60 H (4.00-12.00) mmol/L BUN <3.5 L (9.0-27.0) mg/dL BUN/Creatinine Ratio <5.00 L (12.00-20.00) Ratio Total Bilirubin 0.2 L (0.3-1.2) mg/dL C-Reactive Protein 3.7 H (<1.0) mg/dL Total Protein 4.9 L (6.2-8.2) d/dL Albumin 2.7 L (3.8-4.9) d/dL Albumin/Globulin Ratio 1.23 L (1.60-3.17) Ratio Assessment and Plan Plan: Dehydration, with severe electrolyte imbalance, with hyponatremia hypokalemia and hypomagnesemia Poor urinary output Evidence of urinary tract infection Leukopenia and thrombocytopenia likely related to chemotherapy Recent diagnosis with creatinine cancer with metastatic disease, patient was recently started on chemotherapy Underlying history of osteoarthritis Underlying history of obstructive sleep apnea maintained on CPAP At this time patient was admitted to medical floor She was started on IV fluid Electrolyte correction protocols She was also started on IV ceftriaxone for urinary tract infection Nephrology and oncology consultation was requested Will recheck labs in a.m. Will follow closely
[2022-12-06] MEDS ORDERED: DIPHENOX-ATROP 2.5-0.025 MG 1 EACH TAB PO PRN (13:20)
--- NOTE | 2022-12-06 14:44 | P.PN ---
Subjective Progress Note Date: 12/06/22 Principal diagnosis: Leukocytosis Patient is a 57-year-old female with a past medical history significant for asthma COPD reflux pancreatic cancer last chemo on November 17, 2022 presented to the hospital about a week ago before initial eval by myself for evaluation of diarrhea weakness along with vomiting and not feeling well, ID was consulted because of elevated white count. On today's evaluation that is 12/06/2022 patient denies having any fever or any chills the patient is breathing comfortably on room air patient denies having any further nausea no vomiting patient denies any abdominal pain and diarrhea has slowed down. No lab draws today patient did have a CRP of 3.7 procalcitonin 0.11 Objective - Vital Signs Vital signs: Vital Signs Temp 98.1 F 12/06/22 07:45 Pulse 92 12/06/22 11:11 Resp 16 12/06/22 07:45 BP 110/73 12/06/22 07:45 Pulse Ox 99 12/06/22 07:45 FiO2 Intake & Output 12/05/22 12/06/22 12/06/22 18:59 06:59 18:59 Output Total 2 2 Balance -2 -2 Output: Stool 2 2 Other: Voiding Method Toilet Toilet Toilet # Voids 1 1 # Bowel Movements 1 - Exam GENERAL DESCRIPTION: Elderly female lying in bed in no distress RESPIRATORY SYSTEM: Unlabored breathing , decreased breath sounds at bases HEART: S1 S2 regular rate and rhythm ,no loud murmurs ABDOMEN: Soft , no tenderness EXTREMITIES: No edema feet - Labs CBC & Chem 7: 12/05/22 09:59 12/05/22 09:59 Labs: Abnormal Lab Results - Last 24 Hours (Table) 12/05/22 12/05/22 12/06/22 Range/Units 09:59 09:59 06:29 WBC 14.95 H (4.50-10.00) X 10*3/uL RBC 3.85 L (4.10-5.20) X 10*6/uL Hgb 10.2 L (12.0-15.0) d/dL Hct 32.4 L (37.2-46.3) % MCH 26.5 L (27.0-32.0) pg MCHC 31.5 L (32.0-37.0) d/dL RDW 16.0 H (11.5-14.5) % Lymphocytes # (Manual) 0.60 L (0.90-5.00) X 10*3/uL Monocytes # (Manual) 1.05 H (0.20-1.00) X 10*3/uL Eosinophils # (Manual) 0 L (0.04-0.35) X 10*3/uL Basophils # (Manual) 0.15 H (0.00-0.10) X 10*3/uL NRBC/100 WBC Diff 0.08 H (0.00-0.01) X 10*3/uL Toxic Granulation 2+ A Crenated Cell 2+ A Carbon Dioxide 21.4 L (21.6-31.8) mmol/L Anion Gap 13.60 H (4.00-12.00) mmol/L BUN <3.5 L (9.0-27.0) mg/dL BUN/Creatinine Ratio <5.00 L (12.00-20.00) Ratio Total Bilirubin 0.2 L (0.3-1.2) mg/dL C-Reactive Protein 3.7 H (<1.0) mg/dL Total Protein 4.9 L (6.2-8.2) d/dL Albumin 2.7 L (3.8-4.9) d/dL Albumin/Globulin Ratio 1.23 L (1.60-3.17) Ratio Assessment and Plan (1) Leukocytosis Current Visit: Yes Status: Acute Code(s): D72.829 - ELEVATED WHITE BLOOD CELL COUNT, UNSPECIFIED SNOMED Code(s): 502695779 (2) Diarrhea Current Visit: Yes Status: Acute Priority: High Code(s): R19.7 - DIARRHEA, UNSPECIFIED SNOMED Code(s): 48389211 Plan: Patient with leukocytosis in this patient who do have a history of metastatic pancreatic cancer last chemotherapy was on November 17, 2022 admitted to the hospital about a week ago mostly for nausea vomiting and diarrhea patient nausea vomiting has improved however did have a diarrhea with a question of infectious versus noninfectious etiology,leukocytosis possibly related to G-CSF patient received after chemotherapy as no no fever during this hospital stay does not look toxic and no obvious focus of infection 2-- inflammatory markers Are mildly elevated and cultures are currently pending, we will repeat her CBC with a.m. lab and monitor the patient closely Dictation was produced using [employer] dictation software. please excuse any grammatical, word or spelling errors.
[2022-12-06] MEDS: SODIUM CHLORIDE 0.9% 1,000 ML IV SCH (20:55)
[2022-12-06] MEDS: lamoTRIgine 25 MG TAB PO SCH (20:56)
[2022-12-06] MEDS: ATORVASTATIN 10 MG TAB PO SCH (20:56)
[2022-12-07 02:19] VITALS: RESP 16
[2022-12-07] MEDS: SODIUM CHLORIDE 0.9% 1,000 ML IV SCH (05:29)
[2022-12-07] MEDS: IPRATROPIUM 0.5 MG/2.5 ML NEBU INHALATION SCH ×2 (07:45→11:38)
[2022-12-07] MEDS: SYMBICORT 80-4.5 MCG INHALER INHALATION SCH (07:45)
[2022-12-07 08:28] VITALS: BP 115/81; PULSE 89; TEMP 97.9
[2022-12-07] MEDS: METOPROLOL TARTRATE 25 MG TAB PO SCH (08:32)
[2022-12-07] MEDS: FAMOTIDINE 20 MG TAB PO SCH (08:32)
[2022-12-07] MEDS: PANTOPRAZOLE 40 MG TABLET PO SCH (08:32)
[2022-12-07] MEDS: FERROUS SULFATE 325 MG TAB PO SCH (08:32)
[2022-12-07] MEDS: MIDODRINE 5 MG TAB PO SCH (08:32)
[2022-12-07] MEDS: DULoxetine HCL 30 MG CAPSULE.DR PO SCH (08:32)
[2022-12-07] MEDS: SUCRALFATE 1 GM TAB PO SCH (08:32)
[2022-12-07] MEDS: POTASSIUM CHLORIDE ER 20 MEQ TAB.ER PO SCH (08:33)
--- NOTE | 2022-12-07 09:37 | P.DS ---
Providers Date of admission: 11/28/22 16:14 Expected date of discharge: 12/07/22 Attending physician: Michael Leal Consults: 11/28/22 16:14 Consult Physician Routine Consulting Provider: Kali Murray Consult Reason/Comments: pancreatic cancer Do you want consulting provider notified?: Yes 12/05/22 10:10 Consult Physician Routine Consulting Provider: Trevor Barr Consult Reason/Comments: elevated WBC, chemo, UTI Do you want consulting provider notified?: Yes Primary care physician: Michael Leal [facility] Course: Discharge diagnosis Dehydration, with severe electrolyte imbalance, with hyponatremia hypokalemia and hypomagnesemia Poor urinary output Evidence of urinary tract infection Leukopenia and thrombocytopenia likely related to chemotherapy Recent diagnosis with creatinine cancer with metastatic disease, patient was recently started on chemotherapy Underlying history of osteoarthritis Underlying history of obstructive sleep apnea maintained on CPAP Hospital course Luz Marina Mallory, he is a 57-year-old female who presented to [facility] emergency room with a chief complaint of severe generalized weakness, diarrhea, and dehydration was no urine output for the last 2 days. She was evaluated in the emergency room vital examination on presentation revealed a temperature of 97.7 heart rate 129 respiration 22 blood pressure 90/66 pulse ox 97% on room air Laboratory data revealed a white blood count of 1.6 hemoglobin 14.9 platelet count 50 INR 1.2 sodium 131 potassium 2.5 chloride 90 CO2 22 BUN 15 creatinine 0.59 Testing in the emergency room revealed chest x-ray done in the emergency room revealed no evidence for acute pulmonary disease, EKG done in the emergency room revealed sinus rhythm with frequent supraventricular premature complexes Patient was admitted to medical floor for further evaluation and treatment Past medical history is significant for history of pancreatic cancer with metastatic disease, patient was started on chemotherapy last month, history of asthma, history of gastroesophageal reflux disease, history of osteoarthritis, history of obstructive sleep apnea maintained on CPAP On review of systems at this time patient is alert and oriented 3 in no apparent distress, there is no fever or chills no headache or dizziness no chest pain, no shortness of breath no cough, she is still having some nausea no vomiting she is still having some diarrhea, there is no abdominal pain, no blood in the stools, she has burning with urination, she stated that she just started urinating, she had no urinary output for 2 days, there is no blood in the urine, she denies any weakness or numbness in any of the extremities there is no change in vision speech or gait. On 11/30/2022 patient was seen and examined on the medical floor she is alert and oriented 3 in no apparent distress, she is still complaining of poor appetite and very poor oral intake, she is complaining of nausea vomiting and diarrhea, stools for C. diff were ordered results are still pending, vital exam reveals a temperature of 97.4 pulse 76 respiration 16 blood pressure 118/87 pulse ox 99% on room air white blood count is 8.2 hemoglobin 9.4 platelet count still pending. On 12/01/2022 patient was seen and examined on the telemetry floor she is alert and oriented 3 in no apparent distress there is no fever or chills no headache or dizziness no chest pain no shortness of breath no cough she is still complaining of nausea and occasional vomiting there is no abdominal pain she is still complaining of diarrhea there is no blood in the stools however occult blood was positive there is no burning with urination no frequency or urgency and no hematuria On 12/02/2022 patient is alert and oriented 3 resting in bed. Hematology nephrology services are following. Patient remains on IV Rocephin for UTI. Blood pressures remained marginal. Patient denies chest pain or shortness of b reath. Occasional vomiting and diarrhea. Denies any urinary burning or frequency On 12/03/2022 patient is alert and oriented 3. Patient reports improvement with nausea and vomiting. Will update to regular diet. Laboratory currently pending. Hematology service is following. Patient denies chest pain breath. Patient denies nausea vomiting or diarrhea. Patient denies any urinary burning frequency. On 12/04/2022 patient was seen and examined on the medical floor she is alert and oriented 3 in no apparent distress she is still complaining of some nausea but still complaining of significant diarrhea, otherwise she denies any complaints there is no fever or chills no headache or dizziness no chest pain no shortness of breath no cough no blood in the stools no burning with urination no frequency or urgency and no hematuria On 02/04/2023 patient is alert and oriented 3. Patient reports improvement with nausea vomiting and diarrhea. Patient has been tolerating diet. White blood cell count elevated at 15.1 will consult infectious disease services patient currently on Rocephin for UTI. On 02/05/2023 patient was seen and examined on the medical floor she is alert and oriented 3 in no apparent distress there is no fever or chills no headache or dizziness no chest pain no shortness of breath no cough there is some improvement with nausea and diarrhea no blood in the stools no burning with urination no frequency or urgency and no hematuria. Patient still has significant leukocytosis, infectious disease consultation review, cultures are pending, possible discharge to home in the next 1-2 days. On 12/07/2022 patient is alert and oriented 3. Patient is very eager to be DC'd home. Per infectious disease no obvious signs of infection patient to follow-up with oncology services and PCP for further management. Patient has been tolerating diet denies nausea or vomiting. Her diarrhea has improved. Will DC patient on Lomotil. Patient denies chest pain or shortness breath. Patient denies nausea vomiting or diarrhea. Patient denies any urinary burning or frequency Patient Condition at Discharge: Stable Plan - Discharge Summary Discharge Rx Participant: No New Discharge Prescriptions: New Sucralfate [Carafate] 1 gm PO AC-TID 7 Days #21 tab Diphenox-Atrop 2.5-0.025 mg [Lomotil] 1 each PO QID PRN 3 Days #12 tab PRN Reason: Diarrhea Continue Ferrous Sulfate [Iron] 325 mg PO DAILY calcitrioL [Calcitriol] 0.25 mcg PO DAILY Aspirin EC [Ecotrin Low Dose] 81 mg PO DAILY Midodrine HCl 5 mg PO TID Metoprolol Tartrate [Lopressor] 25 mg PO BID Cholestyramine (with Sugar) [Cholestyramine Powder] 4 gm PO BID Famotidine [Pepcid] 40 mg PO DAILY LORazepam [Ativan] 0.5 mg PO Q8HR PRN PRN Reason: Nausea Budesonide [Pulmicort] 0.5 mg INHALATION RT-BID DULoxetine HCL [Cymbalta] 30 mg PO BID Albuterol Inhaler [Ventolin Hfa Inhaler] 1 - 2 puff INHALATION RT-Q6H PRN PRN Reason: Shortness Of Breath Potassium Chloride ER [K-Dur 20] 20 meq PO BID Fluticasone/Umeclidin/Vilanter [Trelegy Ellipta 100-62.5-25] 1 puff INHALATION RT-DAILY lamoTRIgine [LaMICtal] 75 mg PO HS Ondansetron [Zofran] 4 mg PO Q6H PRN PRN Reason: Nausea Rosuvastatin Calcium 5 mg PO HS Ipratropium-Albuterol Nebulize [Duoneb 0.5 mg-3 mg/3 ml Soln] 3 ml INHALATION RT-Q6H PRN PRN Reason: Shortness Of Breath Pantoprazole Sodium [Protonix] 40 mg PO BID Discharge Medication List Albuterol Inhaler [Ventolin Hfa Inhaler] 1 - 2 puff INHALATION RT-Q6H PRN 11/03/22 [History] Aspirin EC [Ecotrin Low Dose] 81 mg PO DAILY 11/03/22 [History] DULoxetine HCL [Cymbalta] 30 mg PO BID 11/03/22 [History] Ferrous Sulfate [Iron] 325 mg PO DAILY 11/03/22 [History] Fluticasone/Umeclidin/Vilanter [Trelegy Ellipta 100-62.5-25] 1 puff INHALATION RT-DAILY 11/03/22 [History] Metoprolol Tartrate [Lopressor] 25 mg PO BID 11/03/22 [History] Midodrine HCl 5 mg PO TID 11/03/22 [History] Potassium Chloride ER [K-Dur 20] 20 meq PO BID 11/03/22 [History] calcitrioL [Calcitriol] 0.25 mcg PO DAILY 11/03/22 [History] Budesonide [Pulmicort] 0.5 mg INHALATION RT-BID 11/28/22 [History] Cholestyramine (with Sugar) [Cholestyramine Powder] 4 gm PO BID 11/28/22 [History] Famotidine [Pepcid] 40 mg PO DAILY 11/28/22 [History] Ipratropium-Albuterol Nebulize [Duoneb 0.5 mg-3 mg/3 ml Soln] 3 ml INHALATION RT-Q6H PRN 11/28/22 [History] LORazepam [Ativan] 0.5 mg PO Q8HR PRN 11/28/22 [History] Ondansetron [Zofran] 4 mg PO Q6H PRN 11/28/22 [History] Pantoprazole Sodium [Protonix] 40 mg PO BID 11/28/22 [History] Rosuvastatin Calcium 5 mg PO HS 11/28/22 [History] lamoTRIgine [LaMICtal] 75 mg PO HS 11/28/22 [History] Diphenox-Atrop 2.5-0.025 mg [Lomotil] 1 each PO QID PRN 3 Days #12 tab 12/07/22 [Rx] Sucralfate [Carafate] 1 gm PO AC-TID 7 Days #21 tab 12/07/22 [Rx] Follow up Appointment(s)/Referral(s): Kali Murray [STAFF PHYSICIAN] - 12/08/22 11:30 am Michael Leal MD [Primary Care Provider] - 1-2 days Activity/Diet/Wound Care/Special Instructions: Activity as tolerated Diet regular Discharge Disposition: HOME SELF-CARE
[2022-12-07] MEDS: CHOLESTYRAMINE (WITH SUGAR) 4 GM PACKET PO SCH (10:33)
== END 2022-12-07 11:38 | disposition home or self-care (01) | DRG 394 ==
LOC: EC 13:02 → 5NMEDONC 16:14
PROVIDERS: ADMIT Internal Medicine; ATTEND Internal Medicine
DX: K52.1 Toxic gastroenteritis and colitis (principal); C25.9 Malignant neoplasm of pancreas, unspecified; N39.0 Urinary tract infection, site not specified; E87.1 Hypo-osmolality and hyponatremia; E87.20 Acidosis, unspecified; T45.1X5A Adverse effect of antineoplastic and immunosuppressive drugs, initial encounter; E86.0 Dehydration; M19.90 Unspecified osteoarthritis, unspecified site; K22.70 Barrett's esophagus without dysplasia; J44.89 Other specified chronic obstructive pulmonary disease; F10.11 Alcohol abuse, in remission; F41.9 Anxiety disorder, unspecified; D69.59 Other secondary thrombocytopenia; D64.81 Anemia due to antineoplastic chemotherapy; D72.819 Decreased white blood cell count, unspecified; E83.42 Hypomagnesemia; E86.1 Hypovolemia; E87.5 Hyperkalemia; E87.6 Hypokalemia; Z20.822 Contact with and (suspected) exposure to COVID-19; F32.A Depression, unspecified; Z87.891 Personal history of nicotine dependence; G47.33 Obstructive sleep apnea (adult) (pediatric); Z79.82 Long term (current) use of aspirin; Z79.899 Other long term (current) drug therapy; Z90.711 Acquired absence of uterus with remaining cervical stump; Z28.21 Immunization not carried out because of patient refusal
CPT/HCPCS: 36415; 71046; 80048; 80053; 81001; 82272; 83605; 83735; 84132; 84145; 84484; 85025; 85610; 85730; 86140; 87040; 87045; 87046; 87324; 87636; 93005; 94640; 94760; 96361; 96365; 96366; 96368; 96375; 99285

== ENCOUNTER 2023-01-26 13:56 | Inpatient (IN) | payer MEDICARE, OTHER ==
--- NOTE | 2023-01-26 14:05 | ED ---
General Adult HPI - General Source: patient, family, RN notes reviewed Mode of arrival: ambulatory Limitations: no limitations <Chandra Akins - Last Filed: 01/26/23 14:03> - General Source: patient, RN notes reviewed <Lisa Cuellar - Last Filed: 01/26/23 19:14> - General Stated complaint: vomitting, diar., referal Time Seen by Provider: 01/26/23 14:03 - History of Present Illness Initial comments: 57-year-old female presents emergency Department from [facility] for evaluation of vomiting diarrhea patient reportedly has not been feeling well has had mild nasal congestion patient did receive infusion today along with IV fluids but was sent over here because of her symptoms. They did state that because of her infusion that her white blood cell count will be elevated. (Chandra Akins) Patient is a 57-year-old female presented ER with chief complaint of coffee- ground emesis and diarrhea. Patient is currently receiving chemo for pancreatic cancer. Patient states she was receiving an infusion today along with IV fluids and other medications when she had an episode of coffee-ground emesis. Patient states she had coffee-ground emesis last night as well. She also has reporting diarrhea for the past couple of weeks. She denies any fevers, chills, night sweats. Patient was sent here due to coffee-ground emesis per physician. (Lisa Raman) - Related Data Home Medications Medication Instructions Recorded Confirmed Albuterol Inhaler [Ventolin Hfa 1 - 2 puff INHALATION RT-Q6H PRN 11/03/22 01/26/23 Inhaler] Aspirin EC [Ecotrin Low Dose] 81 mg PO DAILY 11/03/22 01/26/23 DULoxetine HCL [Cymbalta] 30 mg PO BID 11/03/22 01/26/23 Ferrous Sulfate [Iron] 325 mg PO DAILY 11/03/22 01/26/23 Fluticasone/Umeclidin/Vilanter 1 puff INHALATION RT-DAILY 11/03/22 01/26/23 [Trelegy Ellipta 100-62.5-25] Metoprolol Tartrate [Lopressor] 25 mg PO BID 11/03/22 01/26/23 Midodrine HCl 5 mg PO TID 11/03/22 01/26/23 Potassium Chloride ER [K-Dur 20] 20 meq PO BID 11/03/22 01/26/23 calcitrioL [Calcitriol] 0.25 mcg PO DAILY 11/03/22 01/26/23 Budesonide [Pulmicort] 0.5 mg INHALATION RT-BID 11/28/22 01/26/23 Cholestyramine (with Sugar) 4 gm PO BID 11/28/22 01/26/23 [Cholestyramine Powder] Famotidine [Pepcid] 40 mg PO DAILY 11/28/22 01/26/23 Ipratropium-Albuterol Nebulize 3 ml INHALATION RT-Q6H PRN 11/28/22 01/26/23 [Duoneb 0.5 mg-3 mg/3 ml Soln] LORazepam [Ativan] 0.5 mg PO Q8HR PRN 11/28/22 01/26/23 Ondansetron [Zofran] 4 mg PO DAILY PRN 11/28/22 01/26/23 Pantoprazole Sodium [Protonix] 40 mg PO DAILY 11/28/22 01/26/23 Rosuvastatin Calcium 5 mg PO HS 11/28/22 01/26/23 lamoTRIgine [LaMICtal] 75 mg PO HS 11/28/22 01/26/23 Aprepitant [Aprepitant Tri-Pack See Taper PO DIRECTED 01/26/23 01/26/23 125 mg (1 cap) + 80 mg (2 caps)] Cyanocobalamin (Vitamin B-12) 1,000 mcg PO DAILY 01/26/23 01/26/23 [Vitamin B-12] Ergocalciferol (Vitamin D2) 1,250 mcg PO ROGEL 01/26/23 01/26/23 [Drisdol (50,000 Iu)] Allergies Allergy/AdvReac Type Severity Reaction Status Date / Time No Known Allergies Allergy Verified 01/26/23 17:38 Review of Systems ROS Other: All systems not noted in ROS Statement are negative. <Chandra Akins - Last Filed: 01/26/23 14:03> ROS Other: All systems not noted in ROS Statement are negative. <Lisa Cuellar - Last Filed: 01/26/23 19:14> ROS Statement: Those systems with pertinent positive or pertinent negative responses have been documented in the HPI. Past Medical History Past Medical History: Asthma, Cancer, COPD, GERD/Reflux, Memory Impairment, Musculoskeletal Disorder, Osteoarthritis (OA), Sleep Apnea/CPAP/BIPAP Additional Past Medical History / Comment(s): PT STATES SOME MEMORY PROBLEMS AND LEARNING DISABILITY, HAS FRIEND WHO HELPS HER WITH MEDICATIONS AND APPTS., STATES MUSCLE SPASMS, BACK PROBLEMS WITH DISC DISEASE, ANEMIA, URINARY URGENCY, PROBLEMS WITH DIARRHEA & CONSTIPATION.Pancreatic CA History of Any Multi-Drug Resistant Organisms: None Reported Past Surgical History: Section, Cholecystectomy, Hysterectomy Additional Past Surgical History / Comment(s): 2 C-SECTIONS, PARTIAL HYSTERECTOMY, BERNADETTE REMOVED. Past Anesthesia/Blood Transfusion Reactions: Motion Sickness Additional Past Anesthesia/Blood Transfusion Reaction / Comment(s): STATES DIFFICULTY WAKING UP AFTER ANESTHESIA Smoking Status: Former smoker - Past Family History Mother Family Medical History: Cancer Additional Family Medical History / Comment(s): LUNG AND BRAIN CA <Chandra Akins - Last Filed: 01/26/23 14:03> General Exam <Chandra Akins - Last Filed: 01/26/23 14:03> General appearance: alert, in no apparent distress Respiratory exam: Present: normal lung sounds bilaterally. Absent: respiratory distress, wheezes, rales, rhonchi, stridor Cardiovascular Exam: Present: regular rate, normal rhythm, normal heart sounds. Absent: systolic murmur, diastolic murmur, rubs, gallop, clicks GI/Abdominal exam: Present: soft, normal bowel sounds. Absent: distended, tenderness, guarding, rebound, rigid Extremities exam: Present: normal inspection, full ROM, normal capillary refill. Absent: tenderness, pedal edema, joint swelling, calf tenderness Neurological exam: Present: alert, oriented X3, CN II-XII intact Psychiatric exam: Present: normal affect, normal mood Skin exam: Present: warm, dry, intact, normal color. Absent: rash <Lisa Cuellar - Last Filed: 01/26/23 19:14> - General Exam Comments Initial Comments: Visual Physical Exam Vital signs reviewed General: Well-appearing, nontoxic, no acute distress. Head: Normocephalic, atraumatic Eyes: PERRLA, EOMI ENT: Airway patent Chest: Nonlabored breathing Skin: No visual rash, normal skin tone Neuro: Alert and oriented 3 Musculoskeletal: No gross abnormalities (Chandra Akins) Course Vital Signs 01/26/23 01/26/23 14:19 18:17 Temperature 98.9 F Pulse Rate 81 77 Respiratory 18 18 Rate Blood Pressure 121/86 145/83 O2 Sat by Pulse 100 100 Oximetry Medical Decision Making <Chandra Akins - Last Filed: 01/26/23 14:03> - Lab Data Result diagrams: 01/26/23 15:41 01/26/23 15:41 <Lisa Cuellar - Last Filed: 01/26/23 19:14> - Medical Decision Making I completed the quick note portion of this chart signed Chandra Akins PA-C (Chandra Akins) Was pt. sent in by a medical professional or institution (MAZIN Blancas, POWER MULE OPERATOR, urgent care, hospital, or [facility]...) When possible be specific @ -Dr. Murray's office due to coffee-ground emesis. Did you speak to anyone other than the patient for history (EMS, parent, family, police, friend...)? What history was obtained from this source @ -No Did you review nursing and triage notes (agree or disagree)? Why? @ -I reviewed and agree with nursing and triage notes Were old charts reviewed (outside hosp., previous admission, EMS record, old EKG, old radiological studies, urgent care reports/EKG's, [facility] records)? Report findings @ -No old charts were reviewed Differential Diagnosis (chest pain, altered mental status, abdominal pain women, abdominal pain men, vaginal bleeding, weakness, fever, dyspnea, syncope, headache, dizziness, GI bleed, back pain, seizure, CVA, palpatations, mental health, musculoskeletal)? @ -Differential Abdominal Pain Women: Appendicitis, Cholecystitis, diverticulosis, ischemic bowel, pancreatitis, hepatitis, UTI, gastroenteritis, AAA, incarcerated hernia, bowel obstruction, constipation, inflammatory bowel, hepatitis, peptic ulcer disease, splenic infarction, perforated viscus, vulvitis, ovarian torsion, PID, kidney stone, placenta abruption, this is not meant to be an all-inclusive list] EKG interpreted by me (3pts min.). @ -[None X-rays interpreted by me (1pt min.). @ -None done CT interpreted by me (1pt min.). @ -None done U/S interpreted by me (1pt. min.). @ -None done What testing was considered but not performed or refused? (CT, X-rays, U/S, labs)? Why? @ -None What meds were considered but not given or refused? Why? @ -None Did you discuss the management of the patient with other professionals (professionals i.e. , PA, POWER MULE OPERATOR, lab, RT, psych nurse, social worker health services, shipper/receiver, teacher, ship's officer, rifle case repairer)? Give summary @ -Yes, I discussed case with Dr. Leal for admission. Was smoking cessation discussed for >3mins.? @ -No Was critical care preformed (if so, how long)? @ -No Were there social determinants of health that impacted care today? How? (Homelessness, low income, unemployed, alcoholism, drug addiction, transportation, low edu. Level, literacy, decrease access to med. care, [place] [facility], rehab)? @ -No Was there de-escalation of care discussed even if they declined (Discuss DNR or withdrawal of care, Hospice)? DNR status @ -No What co-morbidities impacted this encounter? (DM, HTN, Smoking, COPD, CAD, Cancer, CVA, ARF, Chemo, Hep., AIDS, mental health diagnosis, sleep apnea, morbid obesity)? @ -Pancreatic cancer Was patient admitted / discharged? Hospital course, mention meds given and route, prescriptions, significant lab abnormalities, going to OR and other pertinent info. @ -Admitted. Patient is a 57 year old female presenting to the ER with a chief complaint of coffee-ground emesis after IV fluids for pancreatic cancer. Labs obtained in the ER were significant for Hgb 9.4, K+ 2.8 and lactic of 2.1. Patient received IV Reglan, 0.5 mg of Dilaudid and 20 mEq of potassium chloride. Patient was also started on maintenance fluids and potassium replacement. I discussed with the patient that I would like her to be admitted for further follow-up and GI consult due to her emesis. I spoke with Dr. Leal for admission who advised to get blood cultures. Patient will be admitted for further evaluation. GI and Dr. Murray, her oncologist, will be on consult. Patient expressed understanding and agreement with care plan. Undiagnosed new problem with uncertain prognosis? @ -No Drug Therapy requiring intensive monitoring for toxicity (Heparin, Nitro, Insulin, Cardizem)? @ -No Were any procedures done? @ -No Diagnosis/symptom? @ -Hypokalemia/lactic acidosis/vomiting Acute, or Chronic, or Acute on Chronic? @ -Acute Uncomplicated (without systemic symptoms) or Complicated (systemic symptoms)? @ -Complicated Side effects of treatment? @ -No Exacerbation, Progression, or Severe Exacerbation? @ -No Poses a threat to life or bodily function? How? (Chest pain, [place], [place], pneumonia, PE, COPD, DKA, ARF, appy, cholecystitis, CVA, Diverticulitis, Homicidal, Suicidal, threat to staff... and all critical care pts) @ -No (Lisa Cuellar) - Lab Data Lab Results 01/26/23 01/26/23 01/26/23 Range/Units 15:41 15:41 15:41 WBC 5.8 (3.8-10.6) k/uL RBC 3.07 L (3.80-5.40) m/uL Hgb 9.4 L (11.4-16.0) gm/dL Hct 28.2 L (34.0-46.0) % MCV 91.7 (80.0-100.0) fL MCH 30.7 (25.0-35.0) pg MCHC 33.5 (31.0-37.0) g/dL RDW 18.1 H (11.5-15.5) % Plt Count 114 L (150-450) k/uL MPV 8.2 Neutrophils % 88 % Lymphocytes % 10 % Monocytes % 1 % Eosinophils % 0 % Basophils % 0 % Neutrophils # 5.2 (1.3-7.7) k/uL Lymphocytes # 0.6 L (1.0-4.8) k/uL Monocytes # 0.1 (0-1.0) k/uL Eosinophils # 0.0 (0-0.7) k/uL Basophils # 0.0 (0-0.2) k/uL Hypochromasia Slight Anisocytosis Slight Sodium 141 (137-145) mmol/L Potassium 2.8 L (3.5-5.1) mmol/L Chloride 107 (98-107) mmol/L Carbon Dioxide 24 (22-30) mmol/L Anion Gap 10 mmol/L BUN 13 (7-17) mg/dL Creatinine 0.47 L (0.52-1.04) mg/dL Est GFR (CKD-EPI)AfAm >90 (>60 ml/min/1.73 sqM) Est GFR (CKD-EPI)NonAf >90 (>60 ml/min/1.73 sqM) Glucose 122 H (74-99) mg/dL Plasma Lactic Acid Mak 2.1 H* (0.7-2.0) mmol/L Calcium 8.1 L (8.4-10.2) mg/dL Total Bilirubin 0.7 (0.2-1.3) mg/dL AST 51 H (14-36) U/L ALT 30 (4-34) U/L Alkaline Phosphatase 107 (38-126) U/L Total Protein 5.6 L (6.3-8.2) g/dL Albumin 3.1 L (3.5-5.0) g/dL Lipase 59 (23-300) U/L Disposition <Chandra Akins - Last Filed: 01/26/23 14:03> Time of Disposition: 19:10 <Lisa Cuellar - Last Filed: 01/26/23 19:14> Clinical Impression: Hypokalemia, Nausea & vomiting Disposition: ADMITTED IP TO THIS HOSP Condition: Stable Referrals: Michael Leal MD [Primary Care Provider] - 1-2 days
[2023-01-26] MEDS ORDERED: METOCLOPRAMIDE 5 MG/ML 2 ML VIAL IVP STA (16:39)
[2023-01-26 16:45] LABS: Anisocytosis Slight; Basophils % (A) 0 %; Eosinophils % (A) 0 %; HCT 28.2 % (34.0-46.0); HGB 9.4 gm/dL (11.4-16.0); Hypochromasia Slight; Lymphocytes # (A) 0.6 k/uL (1.0-4.8); Lymphocytes % (A) 10 %; MCH 30.7 pg (25.0-35.0); MCHC 33.5 g/dL (31.0-37.0); MCV 91.7 fL (80.0-100.0); Mean Platelet Volume 8.2; Monocytes # (A) 0.1 k/uL (0-1.0); Monocytes % (A) 1 %; Neutrophils # (A) 5.2 k/uL (1.3-7.7); Neutrophils % (A) 88 %; Platelet Count 114 k/uL (150-450); RBC 3.07 m/uL (3.80-5.40); RDW 18.1 % (11.5-15.5); WBC 5.8 k/uL (3.8-10.6)
[2023-01-26 17:39] LABS: ALT 30 U/L (4-34); AST 51 U/L (14-36); African American GFR (CKD) >90 (>60 ml/min/1.73 sqM); Albumin 3.1 g/dL (3.5-5.0); Alkaline Phosphatase 107 U/L (38-126); Anion Gap 10 mmol/L; Blood Urea Nitrogen 13 mg/dL (7-17); Calcium 8.1 mg/dL (8.4-10.2); Carbon Dioxide 24 mmol/L (22-30); Chloride 107 mmol/L (98-107); Glucose 122 mg/dL (74-99); Lipase 59 U/L (23-300); Non-African American GFR(CKD) >90 (>60 ml/min/1.73 sqM); Potassium 2.8 mmol/L (3.5-5.1); Sodium 141 mmol/L (137-145); Total Bilirubin 0.7 mg/dL (0.2-1.3); Total Protein 5.6 g/dL (6.3-8.2)
[2023-01-26] MEDS ORDERED: POTASSIUM CHLORIDE 20 MEQ in WATER FOR INJECTION 1 100ML.BAG IVPB STA (18:00)
[2023-01-26] MEDS ORDERED: HYDROmorphone 0.5 MG/0.5 ML SYRINGE IVP STA (18:01)
[2023-01-26] MEDS ORDERED: NALOXONE 0.4 MG/ML 1 ML VIAL IV PRN (18:17)
[2023-01-26] MEDS ORDERED: PROCHLORPERAZINE 5 MG TAB PO PRN (18:17)
[2023-01-26] MEDS ORDERED: Potassium Replacement Protocol 1 EACH MISC MISCELLANE PRN (18:26)
[2023-01-26] MEDS ORDERED: POTASSIUM CHLORIDE 20 MEQ in WATER FOR INJECTION 1 100ML.BAG IVPB SCH (18:30)
[2023-01-26] MEDS: SODIUM CHLORIDE 0.9% 1,000 ML IV SCH ×2 (21:07→23:51)
[2023-01-26] MEDS: POTASSIUM CHLORIDE 20 MEQ in WATER FOR INJECTION 1 100ML.BAG IVPB SCH ×2 (21:22→23:59)
[2023-01-27] MEDS: POTASSIUM CHLORIDE 20 MEQ in WATER FOR INJECTION 1 100ML.BAG IVPB SCH (02:08)
[2023-01-27] MEDS: HYDROmorphone 0.5 MG/0.5 ML SYRINGE IVP PRN ×4 (03:19→20:53)
[2023-01-27] MEDS ORDERED: ONDANSETRON 4 MG/2 ML VIAL IVP PRN (03:27)
[2023-01-27 04:44] LABS: Amorphous Sediment,Urine Rare /hpf; Bacteria,Urine Occasional /hpf; Hyaline Casts,Urine 25 /lpf (0-2); Mucus,Urine Many /hpf; RBC,Urine 1 /hpf (0-5); Squamous Epithelial Cell,Urine 2 /hpf (0-4); WBC,Urine 11 /hpf (0-5)
[2023-01-27 04:57] LABS: Appearance,Urine Clear (Clear); Bilirubin,Urine Negative (Negative); Color,Urine Light Orange; Glucose,Urine (UA) Trace (Negative); Ketones,Urine 1+ (Negative); PH, Urine 7.5 (5.0-8.0); Protein,Urine 1+ (Negative); Specific Gravity,Urine 1.015 (1.001-1.035)
[2023-01-27 04:58] LABS: Blood,Urine Negative (Negative); Leukocyte Esterase,Urine Negative (Negative); Nitrite,Urine Negative (Negative); Urobilinogen,Urine 0.2 mg/dL (<2.0)
[2023-01-27] MEDS: PANTOPRAZOLE 40 MG/10 ML VIAL IVP SCH ×2 (08:58→20:53)
[2023-01-27] MEDS: SODIUM CHLORIDE 0.9% 1,000 ML IV SCH ×2 (09:04→18:46)
--- NOTE | 2023-01-27 09:42 | P.CRDCN ---
History of Present Illness History of present illness: HISTORY OF PRESENT ILLNESS: This is a 57-year-old female with a past medical history significant for pancreatic cancer undergoing chemotherapy, hypertension, hyperlipidemia, depression, COPD, former nicotine dependence, and GERD. Patient follows in the office with Dr. Ware. We have been asked to see the patient in consultation for chest pain. Patient examined at the bedside. Patient is currently admitted to the hospital secondary to coffee-ground emesis. She has been followed by GI and also oncology as she has a history of pancreatic cancer. The patient states she has been having diarrhea for the past 2-3 days at home. She also reports nausea with episodes of vomiting. She reports decreased oral intake. She reports right lower quadrant abdominal pain this morning. She also reports having some left-sided chest discomfort which started after she had episodes of vomiting. She does have epigastric tenderness at the time of examination. * No EKG available at the time of this dictation * Laboratory data: Hemoglobin 9.4. Potassium 2.8. Repeat 5.0. * Current home cardiac medications include aspirin 81 mg daily * Most recent echocardiogram obtained in October 2018 revealed ejection fraction 60% * Cardiac catheterization history: April 2017 at [facility] revealing a right dominant system with spasm of the RCA with cannulation. 35% smooth narrowing in the proximal portion. No other significant disease. Filling pressure is normal. REVIEW OF SYSTEMS: At the time of my exam: CONSTITUTIONAL: Denies fever or chills. HEENT: Denies blurred vision, vision changes, or eye pain. Denies hemoptysis CARDIOVASCULAR: Denies chest pain. Denies orthopnea. Denies PND. Denies palpitations RESPIRATORY: Denies shortness of breath. GASTROINTESTINAL: + abdominal pain. + nausea or vomiting. HEMATOLOGIC: Denies bleeding disorders. GENITOURINARY: Denies any blood in urine. SKIN: Denies pruitis. Denies rash. PHYSICAL EXAM: VITAL SIGNS: Reviewed. GENERAL: Well-developed in no acute distress. HEENT: Head is normocephalic. Pupils are equal, round. Sclerae anicteric. Mucous membranes of the mouth are moist. Neck supple. No JVD or thyromegaly LUNGS: Respirations even and unlabored. Lungs essentially clear to auscultation bilaterally. HEART: Regular rate and rhythm. S1 and S2 heard. ABDOMEN: Soft. Nondistended. Nontender. EXTREMITIES: Normal range of motion. No clubbing or cyanosis. Peripheral pu lses intact. No lower extremity edema NEUROLOGIC: Awake and alert. Oriented x 3. ASSESSMENT: Nausea and vomiting with coffee-ground emesis Diarrhea Hypokalemia Chest pain, atypical, appears to be GI in etiology secondary to vomiting Nonobstructive CAD Hypertension Hyperlipidemia COPD Depression Former nicotine dependence GERD PLAN: Obtain 2-D echo to assess cardiac structure and function Obtain EKG Trend troponins GI consulted. Await evaluation Resume aspirin 81 mg when okay with GI service Further recommendations pending patient's course Nurse practitioner note has been reviewed by physician. Signing provider agrees with the documented findings, assessment, and plan of care. Past Medical History Past Medical History: Asthma, Cancer, COPD, GERD/Reflux, Memory Impairment, Mus culoskeletal Disorder, Osteoarthritis (OA), Sleep Apnea/CPAP/BIPAP Additional Past Medical History / Comment(s): PT STATES SOME MEMORY PROBLEMS AND LEARNING DISABILITY, HAS FRIEND WHO HELPS HER WITH MEDICATIONS AND APPTS., STATES MUSCLE SPASMS, BACK PROBLEMS WITH DISC DISEASE, ANEMIA, URINARY URGENCY, PROBLEMS WITH DIARRHEA & CONSTIPATION.Pancreatic CA diagnosed August 2022 History of Any Multi-Drug Resistant Organisms: None Reported Past Surgical History: Section, Cholecystectomy, Hysterectomy Additional Past Surgical History / Comment(s): 2 C-SECTIONS, PARTIAL HYSTERECTOMY, BERNADETTE REMOVED. 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 [employer] Smoking Status: Former smoker Past Alcohol Use History: None Reported Past Drug Use History: None Reported - Past Family History Mother Family Medical History: Cancer Additional Family Medical History / Comment(s): LUNG AND BRAIN CA Medications and Allergies Home Medications Medication Instructions Recorded Confirmed Type Albuterol Inhaler [Ventolin Hfa 1 - 2 puff INHALATION RT-Q6H PRN 11/03/22 01/26/23 History Inhaler] Aspirin EC [Ecotrin Low Dose] 81 mg PO DAILY 11/03/22 01/26/23 History DULoxetine HCL [Cymbalta] 30 mg PO BID 11/03/22 01/26/23 History Ferrous Sulfate [Iron] 325 mg PO DAILY 11/03/22 01/26/23 History Fluticasone/Umeclidin/Vilanter 1 puff INHALATION RT-DAILY 11/03/22 01/26/23 History [Trelegy Ellipta 100-62.5-25] Metoprolol Tartrate [Lopressor] 25 mg PO BID 11/03/22 01/26/23 History Midodrine HCl 5 mg PO TID 11/03/22 01/26/23 History Potassium Chloride ER [K-Dur 20] 20 meq PO BID 11/03/22 01/26/23 History calcitrioL [Calcitriol] 0.25 mcg PO DAILY 11/03/22 01/26/23 History Budesonide [Pulmicort] 0.5 mg INHALATION RT-BID 11/28/22 01/26/23 History Cholestyramine (with Sugar) 4 gm PO BID 11/28/22 01/26/23 History [Cholestyramine Powder] Famotidine [Pepcid] 40 mg PO DAILY 11/28/22 01/26/23 History Ipratropium-Albuterol Nebulize 3 ml INHALATION RT-Q6H PRN 11/28/22 01/26/23 History [Duoneb 0.5 mg-3 mg/3 ml Soln] LORazepam [Ativan] 0.5 mg PO Q8HR PRN 11/28/22 01/26/23 History Ondansetron [Zofran] 4 mg PO DAILY PRN 11/28/22 01/26/23 History Pantoprazole Sodium [Protonix] 40 mg PO DAILY 11/28/22 01/26/23 History Rosuvastatin Calcium 5 mg PO HS 11/28/22 01/26/23 History lamoTRIgine [LaMICtal] 75 mg PO HS 11/28/22 01/26/23 History Aprepitant [Aprepitant Tri-Pack See Taper PO DIRECTED 01/26/23 01/26/23 History 125 mg (1 cap) + 80 mg (2 caps)] Cyanocobalamin (Vitamin B-12) 1,000 mcg PO DAILY 01/26/23 01/26/23 History [Vitamin B-12] Ergocalciferol (Vitamin D2) 1,250 mcg PO ROGEL 01/26/23 01/26/23 History [Drisdol (50,000 Iu)] Allergies Allergy/AdvReac Type Severity Reaction Status Date / Time No Known Allergies Allergy Verified 01/26/23 17:38 Physical Exam Vitals: Vital Signs Temp Pulse Pulse Resp BP BP Pulse Ox 01/27/23 07:30 98.5 F 142 H 16 138/55 95 01/27/23 02:00 107 H 16 144/80 100 01/27/23 01:03 98.5 F 72 16 128/74 94 L 01/27/23 00:40 18 01/26/23 23:10 98.8 F 75 18 123/90 100 01/26/23 21:41 80 17 143/105 97 01/26/23 18:17 77 18 145/83 100 01/26/23 14:19 98.9 F 81 18 121/86 100 Intake and Output 01/26/23 01/27/23 01/27/23 22:59 06:59 14:59 Intake Total 120 Balance 120 Intake: Oral 120 Other: Voiding Method Toilet # Voids 1 1 # Emeses 2 Weight 51.71 kg Results 01/26/23 15:41 01/27/23 07:04 Cardiac Enzymes 01/26/23 Range/Units 15:41 AST 51 H (14-36) U/L CBC 01/26/23 Range/Units 15:41 WBC 5.8 (3.8-10.6) k/uL RBC 3.07 L (3.80-5.40) m/uL Hgb 9.4 L (11.4-16.0) gm/dL Hct 28.2 L (34.0-46.0) % Plt Count 114 L (150-450) k/uL Comprehensive Metabolic Panel 01/26/23 01/27/23 Range/Units 15:41 07:04 Sodium 141 (137-145) mmol/L Potassium 2.8 L 5.0 (3.5-5.1) mmol/L Chloride 107 (98-107) mmol/L Carbon Dioxide 24 (22-30) mmol/L BUN 13 (7-17) mg/dL Creatinine 0.47 L (0.52-1.04) mg/dL Glucose 122 H (74-99) mg/dL Calcium 8.1 L (8.4-10.2) mg/dL AST 51 H (14-36) U/L ALT 30 (4-34) U/L Alkaline Phosphatase 107 (38-126) U/L Total Protein 5.6 L (6.3-8.2) g/dL Albumin 3.1 L (3.5-5.0) g/dL Current Medications Generic Name Dose Route Start Last Admin Trade Name Freq PRN Reason Stop Dose Admin Hydromorphone HCl 0.5 mg 01/26/23 18:17 01/27/23 08:59 Hydromorphone 0.5 Mg/0.5 Ml Syringe IVP 0.5 mg Q3HR PRN Administration Moderate Pain (Scale 4 to 6) Sodium Chloride 1,000 mls @ 130 mls/hr 01/26/23 18:30 01/27/23 09:04 Saline 0.9% IV 130 mls/hr .[id number] SOTERO Administration Miscellaneous Information 1 each 01/26/23 18:26 Potassium Replacement Protocol 1 Each Misc MISCELLANE DAILY PRN Per Protocol Protocol Naloxone HCl 0.2 mg 01/26/23 18:17 Naloxone 0.4 Mg/Ml 1 Ml Vial IV Q2M PRN Opioid Reversal Ondansetron HCl 4 mg 01/27/23 03:27 01/27/23 08:58 Ondansetron 4 Mg/2 Ml Vial IVP 4 mg Q6HR PRN Administration Nausea And Vomiting Pantoprazole Sodium 40 mg 01/27/23 09:00 01/27/23 08:58 Pantoprazole 40 Mg/10 Ml Vial IVP 40 mg BID SOTERO Administration Prochlorperazine Maleate 5 mg 01/26/23 18:17 01/26/23 23:59 Prochlorperazine 5 Mg Tab PO 5 mg Q8HR PRN Administration Nausea And Vomiting Intake and Output 01/26/23 01/27/23 01/27/23 22:59 06:59 14:59 Intake Total 120 Balance 120 Intake: Oral 120 Other: Voiding Method Toilet # Voids 1 1 # Emeses 2 Weight 51.71 kg 01/26/23 15:41 01/27/23 07:04
[2023-01-27] MEDS ORDERED: ONDANSETRON 4 MG TAB PO PRN (09:55)
[2023-01-27] MEDS ORDERED: LORazepam 0.5 MG TAB PO PRN (09:55)
[2023-01-27] MEDS ORDERED: NON FORMULARY DRUG (Albuterol Inhaler 90 MCG Puff) INHALATION PRN (09:55)
[2023-01-27 09:57] LABS: African American GFR (CKD) >90 (>60 ml/min/1.73 sqM); Anion Gap 6 mmol/L; Blood Urea Nitrogen 20 mg/dL (7-17); Calcium 8.1 mg/dL (8.4-10.2); Carbon Dioxide 27 mmol/L (22-30); Chloride 105 mmol/L (98-107); Glucose 142 mg/dL (74-99); Non-African American GFR(CKD) >90 (>60 ml/min/1.73 sqM); Potassium 3.8 mmol/L (3.5-5.1); Sodium 138 mmol/L (137-145)
--- NOTE | 2023-01-27 09:59 | P.HPIM ---
History of Present Illness H&P Date: 01/26/23 Luz Marina Mallory, is a 57-year-old female with known history of pancreatic cancer, who presented to [facility] emergency room with a chief complaint of nausea vomiting and diarrhea. Patient was at the infusion center today she had an episode of coffee ground material vomiting and was sent to emergency room. She was evaluated in the emergency room vital examination on presentation revealed vital signs temp 98.5, heart rate 72, respiratory 16, blood pressure 120/74 to 94% Laboratory data reveals globin 9.8, potassium low at 2.8, creatinine 0.47 bun 13 white blood cell 5.8 Patient was admitted to medical floor for further evaluation and treatment Past medical history is significant for pancreatic cancer in which she is receiving chemotherapy. Additional medical history includes asthma, COPD, GERD, osteoarthritis anxiety and depression. On review of systems patient's alert and oriented 3. Patient reports nausea vomiting with poor appetite. Patient denies chest pain or shortness of breath Review of Systems Please refer to HPI otherwise unremarkable Past Medical History Past Medical History: Asthma, Cancer, COPD, GERD/Reflux, Memory Impairment, Musculoskeletal Disorder, Osteoarthritis (OA), Sleep Apnea/CPAP/BIPAP Additional Past Medical History / Comment(s): PT STATES SOME MEMORY PROBLEMS AND LEARNING DISABILITY, HAS FRIEND WHO HELPS HER WITH MEDICATIONS AND APPTS., STATES MUSCLE SPASMS, BACK PROBLEMS WITH DISC DISEASE, ANEMIA, URINARY URGENCY, PROBLEMS WITH DIARRHEA & CONSTIPATION.Pancreatic CA History of Any Multi-Drug Resistant Organisms: None Reported Past Surgical History: Section, Cholecystectomy, Hysterectomy Additional Past Surgical History / Comment(s): 2 C-SECTIONS, PARTIAL HYSTERECTOMY, BERNADETTE REMOVED. Past Anesthesia/Blood Transfusion Reactions: Motion Sickness Additional Past Anesthesia/Blood Transfusion Reaction / Comment(s): STATES DIFFICULTY WAKING UP AFTER ANESTHESIA Past Psychological History: Anxiety, Depression Smoking Status: Former smoker Past Alcohol Use History: None Reported Past Drug Use History: None Reported - Past Family History Mother Family Medical History: Cancer Additional Family Medical History / Comment(s): LUNG AND BRAIN CA Medications and Allergies Home Medications Medication Instructions Recorded Confirmed Type Albuterol Inhaler [Ventolin Hfa 1 - 2 puff INHALATION RT-Q6H PRN 11/03/22 01/26/23 History Inhaler] Aspirin EC [Ecotrin Low Dose] 81 mg PO DAILY 11/03/22 01/26/23 History DULoxetine HCL [Cymbalta] 30 mg PO BID 11/03/22 01/26/23 History Ferrous Sulfate [Iron] 325 mg PO DAILY 11/03/22 01/26/23 History Fluticasone/Umeclidin/Vilanter 1 puff INHALATION RT-DAILY 11/03/22 01/26/23 History [Trelegy Ellipta 100-62.5-25] Metoprolol Tartrate [Lopressor] 25 mg PO BID 11/03/22 01/26/23 History Midodrine HCl 5 mg PO TID 11/03/22 01/26/23 History Potassium Chloride ER [K-Dur 20] 20 meq PO BID 11/03/22 01/26/23 History calcitrioL [Calcitriol] 0.25 mcg PO DAILY 11/03/22 01/26/23 History Budesonide [Pulmicort] 0.5 mg INHALATION RT-BID 11/28/22 01/26/23 History Cholestyramine (with Sugar) 4 gm PO BID 11/28/22 01/26/23 History [Cholestyramine Powder] Famotidine [Pepcid] 40 mg PO DAILY 11/28/22 01/26/23 History Ipratropium-Albuterol Nebulize 3 ml INHALATION RT-Q6H PRN 11/28/22 01/26/23 History [Duoneb 0.5 mg-3 mg/3 ml Soln] LORazepam [Ativan] 0.5 mg PO Q8HR PRN 11/28/22 01/26/23 History Ondansetron [Zofran] 4 mg PO DAILY PRN 11/28/22 01/26/23 History Pantoprazole Sodium [Protonix] 40 mg PO DAILY 11/28/22 01/26/23 History Rosuvastatin Calcium 5 mg PO HS 11/28/22 01/26/23 History lamoTRIgine [LaMICtal] 75 mg PO HS 11/28/22 01/26/23 History Aprepitant [Aprepitant Tri-Pack See Taper PO DIRECTED 01/26/23 01/26/23 History 125 mg (1 cap) + 80 mg (2 caps)] Cyanocobalamin (Vitamin B-12) 1,000 mcg PO DAILY 01/26/23 01/26/23 History [Vitamin B-12] Ergocalciferol (Vitamin D2) 1,250 mcg PO ROGEL 01/26/23 01/26/23 History [Drisdol (50,000 Iu)] Allergies Allergy/AdvReac Type Severity Reaction Status Date / Time No Known Allergies Allergy Verified 01/26/23 17:38 Physical Exam Vitals: Vital Signs Temp Pulse Resp BP Pulse Ox 01/26/23 14:19 98.9 F 81 18 121/86 100 Intake and Output 01/26/23 01/26/23 01/26/23 06:59 14:59 22:59 Other: Weight 51.71 kg In general patient is alert and oriented x 3 in no distress HEENT head normocephalic and atraumatic Neck is supple no JVD no goiter no lymphadenopathy no carotid bruit Chest examination is clear to auscultation no crackles no wheezing Cardiac exam reveals regular heart sounds S1 and S2 no gallops no murmurs Abdomen is soft nontender no organomegaly with normal bowel sounds Extremity exam reveals no edema no cyanosis or clubbing Neurological examination reveals no gross focal deficits Results CBC & Chem 7: 01/26/23 15:41 01/27/23 07:04 Labs: Abnormal Lab Results - Last 24 Hours (Table) 01/26/23 01/26/23 01/26/23 Range/Units 15:41 15:41 15:41 RBC 3.07 L (3.80-5.40) m/uL Hgb 9.4 L (11.4-16.0) gm/dL Hct 28.2 L (34.0-46.0) % RDW 18.1 H (11.5-15.5) % Plt Count 114 L (150-450) k/uL Lymphocytes # 0.6 L (1.0-4.8) k/uL Potassium 2.8 L (3.5-5.1) mmol/L Creatinine 0.47 L (0.52-1.04) mg/dL Glucose 122 H (74-99) mg/dL Plasma Lactic Acid Mak 2.1 H* (0.7-2.0) mmol/L Calcium 8.1 L (8.4-10.2) mg/dL AST 51 H (14-36) U/L Total Protein 5.6 L (6.3-8.2) g/dL Albumin 3.1 L (3.5-5.0) g/dL Assessment and Plan Assessment: 1. Nausea vomiting with coffee-ground emesis 2. Chest pain 3. Dehydration with electrolyte imbalance 4. Hypokalemia 5. Recent diagnosis of pancreatic cancer with metastatic disease currently receiving chemotherapy 6. History of osteoarthritis 7. History of obstructive sleep apnea DVT prophylaxis SCDs. GI prophylaxis Protonix GI, cardiology and oncology service is consulted Repeat labs ordered Time with Patient: Greater than 30 (Greater than 60% of the total time spent in counseling and coordination of care)
--- NOTE | 2023-01-27 10:02 | P.PN ---
Subjective Progress Note Date: 01/27/23 Luz Marina Mallory, is a 57-year-old female with known history of pancreatic cancer, who presented to [facility] emergency room with a chief complaint of nausea vomiting and diarrhea. Patient was at the infusion center today she had an episode of coffee ground material vomiting and was sent to emergency room. She was evaluated in the emergency room vital examination on presentation reve aled vital signs temp 98.5, heart rate 72, respiratory 16, blood pressure 120/74 to 94% Laboratory data reveals globin 9.8, potassium low at 2.8, creatinine 0.47 bun 13 white blood cell 5.8 Patient was admitted to medical floor for further evaluation and treatment Past medical history is significant for pancreatic cancer in which she is receiving chemotherapy. Additional medical history includes asthma, COPD, GERD, osteoarthritis anxiety and depression. On review of systems patient's alert and oriented 3. Patient reports nausea vomiting with poor appetite. Patient denies chest pain or shortness of breath On 01/27/2023 patient is alert and oriented 3 currently resting comfortably in bed. Patient still complaining of occasional nausea has not been able to eat. Discussed case with GI services tentative plans for possible EGD tomorrow. Repeat labs have been ordered. 2-D echo has been ordered. Cardiology, oncology and GI services following Objective - Vital Signs Vital signs: Vital Signs Temp 98.5 F 01/27/23 07:30 Pulse 142 H 01/27/23 07:30 Resp 16 01/27/23 07:30 BP 138/55 01/27/23 07:30 Pulse Ox 95 01/27/23 07:30 FiO2 Intake & Output 01/26/23 01/27/23 01/27/23 18:59 06:59 18:59 Intake Total 120 Balance 120 Weight 51.71 kg 51.71 kg Intake: Oral 120 Other: Voiding Method Toilet # Voids 1 1 # Emeses 2 - Exam In general patient is alert and oriented x 3 in no distress HEENT head normocephalic and atraumatic Neck is supple no JVD no goiter no lymphadenopathy no carotid bruit Chest examination is clear to auscultation no crackles no wheezing Cardiac exam reveals regular heart sounds S1 and S2 no gallops no murmurs Abdomen is soft nontender no organomegaly with normal bowel sounds Extremity exam reveals no edema no cyanosis or clubbing Neurological examination reveals no gross focal deficits - Labs CBC & Chem 7: 01/26/23 15:41 01/27/23 09:14 Labs: Abnormal Lab Results - Last 24 Hours (Table) 01/26/23 01/26/23 01/26/23 Range/Units 15:41 15:41 15:41 RBC 3.07 L (3.80-5.40) m/uL Hgb 9.4 L (11.4-16.0) gm/dL Hct 28.2 L (34.0-46.0) % RDW 18.1 H (11.5-15.5) % Plt Count 114 L (150-450) k/uL Lymphocytes # 0.6 L (1.0-4.8) k/uL Potassium 2.8 L (3.5-5.1) mmol/L BUN (7-17) mg/dL Creatinine 0.47 L (0.52-1.04) mg/dL Glucose 122 H (74-99) mg/dL Plasma Lactic Acid Mak 2.1 H* (0.7-2.0) mmol/L Calcium 8.1 L (8.4-10.2) mg/dL AST 51 H (14-36) U/L Total Protein 5.6 L (6.3-8.2) g/dL Albumin 3.1 L (3.5-5.0) g/dL Urine Protein (Negative) Urine Glucose (UA) (Negative) Urine Ketones (Negative) Urine WBC (0-5) /hpf Amorphous Sediment (None) /hpf Urine Bacteria (None) /hpf Hyaline Casts (0-2) /lpf Urine Mucus (None) /hpf 01/27/23 01/27/23 Range/Units 03:00 09:14 RBC (3.80-5.40) m/uL Hgb (11.4-16.0) gm/dL Hct (34.0-46.0) % RDW (11.5-15.5) % Plt Count (150-450) k/uL Lymphocytes # (1.0-4.8) k/uL Potassium (3.5-5.1) mmol/L BUN 20 H (7-17) mg/dL Creatinine 0.46 L (0.52-1.04) mg/dL Glucose 142 H (74-99) mg/dL Plasma Lactic Acid Mak (0.7-2.0) mmol/L Calcium 8.1 L (8.4-10.2) mg/dL AST (14-36) U/L Total Protein (6.3-8.2) g/dL Albumin (3.5-5.0) g/dL Urine Protein 1+ H (Negative) Urine Glucose (UA) Trace H (Negative) Urine Ketones 1+ H (Negative) Urine WBC 11 H (0-5) /hpf Amorphous Sediment Rare H (None) /hpf Urine Bacteria Occasional H (None) /hpf Hyaline Casts 25 H (0-2) /lpf Urine Mucus Many H (None) /hpf Assessment and Plan Assessment: 1. Nausea vomiting with coffee-ground emesis 2. Chest pain 3. Dehydration with electrolyte imbalance 4. Hypokalemia 5. Recent diagnosis of pancreatic cancer with metastatic disease currently receiving chemotherapy 6. History of osteoarthritis 7. History of obstructive sleep apnea DVT prophylaxis SCDs. GI prophylaxis Protonix GI, cardiology and oncology service is consulted Tentative plans for EGD on 01/28/2023 2-D echo ordered per cardiology Repeat labs ordered
[2023-01-27 10:37] LABS: Anisocytosis Slight; HCT 22.3 % (34.0-46.0); Hypochromasia Slight; MCH 29.9 pg (25.0-35.0); MCHC 32.4 g/dL (31.0-37.0); MCV 92.5 fL (80.0-100.0); Mean Platelet Volume 8.6; Platelet Count 110 k/uL (150-450); RBC 2.41 m/uL (3.80-5.40); RDW 18.1 % (11.5-15.5); WBC 2.8 k/uL (3.8-10.6)
[2023-01-27 10:43] LABS: HGB 7.2 gm/dL (11.4-16.0)
[2023-01-27] MEDS ORDERED: PROCHLORPERAZINE INJ 10 MG/2 ML VIAL IVP PRN (10:45)
[2023-01-27] MEDS: IPRATROPIUM 0.5 MG/2.5 ML NEBU INHALATION SCH ×3 (11:40→19:54)
--- NOTE | 2023-01-27 14:07 | P.CONS ---
History of Present Illness - Reason for Consult Consult date: 01/27/23 GI bleed, coffe ground emesis Requesting physician: Lisa Cuellar - Chief Complaint coffee ground emesis, diarrhea - History of Present Illness This is a pleasant 57-year-old female who was sent over from [facility] for nausea, vomiting and diarrhea. Patient has pancreatic cancer and was receiving chemotherapy. Started chemo in October. States she's been having increased nausea and vomiting. She started having coffee-ground emesis that began on Thursday or Thursday. Upon walking into the patient's room she started vomiting large amounts of coffee-ground liquid emesis. She does have a history of hiatal hernia and Reina's esophagus. Last documented EGD and colonoscopy report available was from October [address] Bolden which reported hiatal her hilaria and short segment of Reina's esophagus. Colonoscopy found mild sigmoid diverticulosis. However patient does state that she's had more recent EGD done however she is not sure when but believes it was done at [facility] with Dr. Burns. She denies any anticoagulation other than 81 mg aspirin daily. Denies any regular NSAID use. She was admitted with a hemoglobin of 9.4 potassium was 2.8 and replaced with a repeat potassium of 5.0 this morning.Patient denies any abdominal pain, does have nausea and emesis. She was given a regular diet for breakfast this morning and did eat a cup of fruit and took and liquids throughout the night and this morning. Admitting labs WBC 5.8 hemoglobin 9.4 hematocrit 28 platelet count 114,000 sodium 141 potassium 2.8 BUN 13 creatinine 0.4 total bilirubin 0.7 AST 51 ALT 30 alkaline phosphatase 107 lipase 59 Review of Systems REVIEW OF SYSTEMS: CARDIOPULMONARY: Chest pain, no shortness of breath. Gastrointestinal: No abdominal pain. Nausea with coffee-ground emesis. No hematemesis, coffee-ground emesis. No rectal bleeding, or melena. GENITOURINARY: No dysuria or hematuria. MUSCULOSKELETAL: Reports normal range of motion. SKIN: No rashes. No jaundice. ENDOCRINE: No chills, fevers. No excessive weight gain or loss. No polydipsia or polyuria. PSYCHIATRIC: Unremarkable. NEUROLOGY: No change in mental status. Denies dizziness, headache. ENT: Vision unremarkable. CONSTITUTIONAL: No recent weight loss. No fever, chills, night sweats. Past Medical History Past Medical History: Asthma, Cancer, COPD, GERD/Reflux, Memory Impairment, Musculoskeletal Disorder, Osteoarthritis (OA), Sleep Apnea/CPAP/BIPAP Additional Past Medical History / Comment(s): PT STATES SOME MEMORY PROBLEMS AND LEARNING DISABILITY, HAS FRIEND WHO HELPS HER WITH MEDICATIONS AND APPTS., STATES MUSCLE SPASMS, BACK PROBLEMS WITH DISC DISEASE, ANEMIA, URINARY URGENCY, PROBLEMS WITH DIARRHEA & CONSTIPATION.Pancreatic CA diagnosed August 2022 History of Any Multi-Drug Resistant Organisms: None Reported Past Surgical History: Section, Cholecystectomy, Hysterectomy Additional Past Surgical History / Comment(s): 2 C-SECTIONS, PARTIAL HYSTERECTOMY, BERNADETTE REMOVED. 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 Past Alcohol Use History: None Reported Past Drug Use History: None Reported - Past Family History Mother Family Medical History: Cancer Additional Family Medical History / Comment(s): LUNG AND BRAIN CA Medications and Allergies Home Medications Medication Instructions Recorded Confirmed Type Albuterol Inhaler [Ventolin Hfa 1 - 2 puff INHALATION RT-Q6H PRN 11/03/22 01/26/23 History Inhaler] Aspirin EC [Ecotrin Low Dose] 81 mg PO DAILY 11/03/22 01/26/23 History DULoxetine HCL [Cymbalta] 30 mg PO BID 11/03/22 01/26/23 History Ferrous Sulfate [Iron] 325 mg PO DAILY 11/03/22 01/26/23 History Fluticasone/Umeclidin/Vilanter 1 puff INHALATION RT-DAILY 11/03/22 01/26/23 Hi story [Trelegy Ellipta 100-62.5-25] Metoprolol Tartrate [Lopressor] 25 mg PO BID 11/03/22 01/26/23 History Midodrine HCl 5 mg PO TID 11/03/22 01/26/23 History Potassium Chloride ER [K-Dur 20] 20 meq PO BID 11/03/22 01/26/23 History calcitrioL [Calcitriol] 0.25 mcg PO DAILY 11/03/22 01/26/23 History Budesonide [Pulmicort] 0.5 mg INHALATION RT-BID 11/28/22 01/26/23 History Cholestyramine (with Sugar) 4 gm PO BID 11/28/22 01/26/23 History [Cholestyramine Powder] Famotidine [Pepcid] 40 mg PO DAILY 11/28/22 01/26/23 History Ipratropium-Albuterol Nebulize 3 ml INHALATION RT-Q6H PRN 11/28/22 01/26/23 History [Duoneb 0.5 mg-3 mg/3 ml Soln] LORazepam [Ativan] 0.5 mg PO Q8HR PRN 11/28/22 01/26/23 History Ondansetron [Zofran] 4 mg PO DAILY PRN 11/28/22 01/26/23 History Pantoprazole Sodium [Protonix] 40 mg PO DAILY 11/28/22 01/26/23 History Rosuvastatin Calcium 5 mg PO HS 11/28/22 01/26/23 History lamoTRIgine [LaMICtal] 75 mg PO HS 11/28/22 01/26/23 History Aprepitant [Aprepitant Tri-Pack See Taper PO DIRECTED 01/26/23 01/26/23 History 125 mg (1 cap) + 80 mg (2 caps)] Cyanocobalamin (Vitamin B-12) 1,000 mcg PO DAILY 01/26/23 01/26/23 History [Vitamin B-12] Ergocalciferol (Vitamin D2) 1,250 mcg PO ROGEL 01/26/23 01/26/23 History [Drisdol (50,000 Iu)] Allergies Allergy/AdvReac Type Severity Reaction Status Date / Time No Known Allergies Allergy Verified 01/26/23 17:38 Physical Exam Vitals: Vital Signs Temp Pulse Pulse Resp BP BP Pulse Ox 01/27/23 07:30 98.5 F 142 H 16 138/55 95 01/27/23 02:00 107 H 16 144/80 100 01/27/23 01:03 98.5 F 72 16 128/74 94 L 01/27/23 00:40 18 01/26/23 23:10 98.8 F 75 18 123/90 100 01/26/23 21:41 80 17 143/105 97 01/26/23 18:17 77 18 145/83 100 01/26/23 14:19 98.9 F 81 18 121/86 100 Intake and Output 01/26/23 01/27/23 01/27/23 22:59 06:59 14:59 Intake Total 120 Balance 120 Intake: Oral 120 Other: Voiding Method Toilet # Voids 1 1 # Emeses 2 Weight 51.71 kg General appearance: The patient is alert, oriented, appears in no acute distress. HET: Head is normocephalic and atraumatic. Conjunctiva pink. Sclera anicteric. Neck: Supple without lymphadenopathy. Trachea midline. Heart: Regular. Lungs: Equal expansion, normal respiratory effort. Abdomen: Soft, nontender, nondistended with bowel sounds. No guarding or rigidity. Skin: No rashes. No jaundice. Extremities: Normal skin color and turgor. No pedal edema. Neurological: No focal deficits. Alert and oriented x3. Results CBC & Chem 7: 01/27/23 09:14 01/27/23 09:14 Labs: Abnormal Lab Results - Last 24 Hours (Table) 01/26/23 01/26/23 01/26/23 Range/Units 15:41 15:41 15:41 RBC 3.07 L (3.80-5.40) m/uL Hgb 9.4 L (11.4-16.0) gm/dL Hct 28.2 L (34.0-46.0) % RDW 18.1 H (11.5-15.5) % Plt Count 114 L (150-450) k/uL Lymphocytes # 0.6 L (1.0-4.8) k/uL Potassium 2.8 L (3.5-5.1) mmol/L Creatinine 0.47 L (0.52-1.04) mg/dL Glucose 122 H (74-99) mg/dL Plasma Lactic Acid Mak 2.1 H* (0.7-2.0) mmol/L Calcium 8.1 L (8.4-10.2) mg/dL AST 51 H (14-36) U/L Total Protein 5.6 L (6.3-8.2) g/dL Albumin 3.1 L (3.5-5.0) g/dL Urine Protein (Negative) Urine Glucose (UA) (Negative) Urine Ketones (Negative) Urine WBC (0-5) /hpf Amorphous Sediment (None) /hpf Urine Bacteria (None) /hpf Hyaline Casts (0-2) /lpf Urine Mucus (None) /hpf 01/27/23 Range/Units 03:00 RBC (3.80-5.40) m/uL Hgb (11.4-16.0) gm/dL Hct (34.0-46.0) % RDW (11.5-15.5) % Plt Count (150-450) k/uL Lymphocytes # (1.0-4.8) k/uL Potassium (3.5-5.1) mmol/L Creatinine (0.52-1.04) mg/dL Glucose (74-99) mg/dL Plasma Lactic Acid Mak (0.7-2.0) mmol/L Calcium (8.4-10.2) mg/dL AST (14-36) U/L Total Protein (6.3-8.2) g/dL Albumin (3.5-5.0) g/dL Urine Protein 1+ H (Negative) Urine Glucose (UA) Trace H (Negative) Urine Ketones 1+ H (Negative) Urine WBC 11 H (0-5) /hpf Amorphous Sediment Rare H (None) /hpf Urine Bacteria Occasional H (None) /hpf Hyaline Casts 25 H (0-2) /lpf Urine Mucus Many H (None) /hpf Assessment and Plan (1) GI bleed Narrative/Plan: 57-year-old with a history of pancreatic cancer receiving chemotherapy sent over to the hospital for nausea vomiting and diarrhea. However patient's emesis has been coffee-ground in color for last 2-3 days duration. She is known to have a hemoglobin of 9.3 on admission and 1 she was evaluated today had approximately 200 mm of liquid coffee-ground emesis. She had a drop of her hemoglobin to 7.2. BUN also noted to be elevated today at 20. Suspect upper GI bleed possible peptic ulcer disease, gastritis, esophagitis, AVM or other possible etiology. Unfortunately patient was a regular diet this morning and ate breakfast. Patient made nothing by mouth, Protonix 40 mg twice a day and will proceed with EGD tomorrow. Current Visit: No Status: Acute Code(s): K92.2 - GASTROINTESTINAL HEMORRHAGE, UNSPECIFIED SNOMED Code(s): 52466619 (2) Hypokalemia Current Visit: Yes Status: Acute Priority: High Code(s): E87.6 - HYPOKALEMIA SNOMED Code(s): 58824615 (3) Nausea and vomiting Current Visit: Yes Status: Acute Code(s): R11.2 - NAUSEA WITH VOMITING, UNSPECIFIED SNOMED Code(s): 91920051 (4) Diarrhea Current Visit: No Status: Acute Priority: High Code(s): R19.7 - DIARRHEA, UNSPECIFIED SNOMED Code(s): 24495840 (5) Primary pancreatic adenocarcinoma Current Visit: No Status: Acute Priority: High Code(s): C25.9 - MALIGNANT NEOPLASM OF PANCREAS, UNSPECIFIED SNOMED Code(s): 9353295802323 Plan: 1. Continue symptomatic and supportive care 2. Stat CBC, then repeat CBC every 6 hours 3. Transfuse 1 unit of blood for symptomatic anemia and hemoglobin of 7.2 4. Protonix 40 mg IV twice a day 5. Keep nothing by mouth except for ice chips and medications 6. Attentively will Plan for EGD tomorrow. If no further coffee-ground emesis will hold off as patient has had multiple recent EGDs done at [facility] within the last 1 year duration. 7. Hold any NSAIDs You for this consultation, we will continue to follow. Dr. Eren Burns I agree with the dictator's note, documented as a scribe by Jennifer Sykes.
[2023-01-27] MEDS: MIDODRINE 5 MG TAB PO SCH ×2 (14:54→17:23)
[2023-01-27] MEDS: ONDANSETRON 4 MG/2 ML VIAL IVP PRN (16:12)
[2023-01-27 16:52] LABS: HCT 23.4 % (37.2-46.3); HGB 7.1 g/dL (12.0-15.0); MCH 29.3 pg (27.0-32.0); MCHC 30.3 g/dL (32.0-37.0); MCV 96.7 FL (80.0-97.0); Mean Platelet Volume 11.3 FL (9.5-12.2); NRBC Per 100 WBC 0 X 10*3/uL (0.00-0.01); Platelet Count 122 X 10*3/uL (140-440); RBC 2.42 X 10*6/uL (4.10-5.20); RDW 17.9 % (11.5-14.5); WBC 3.29 X 10*3/uL (4.50-10.00)
[2023-01-27 17:13] LABS: % Iron Saturation 27.65 (12.00-45.00); ALT 34 U/L (8-44); AST 47 U/L (13-35); Albumin 3.3 g/dL (3.8-4.9); Albumin/Globulin Ratio 1.74 Ratio (1.60-3.17); Alkaline Phosphatase 96 U/L (41-126); Blood Urea Nitrogen 18.9 mg/dL (9.0-27.0); Calcium 8.6 mg/dL (8.7-10.3); Carbon Dioxide 26.1 mmol/L (21.6-31.8); Chloride 105 mmol/L (96-109); Globulin 1.9 g/dL (1.6-3.3); Glucose 132 mg/dL (70-110); Iron 81 UG/DL (50-170); Potassium 3.8 mmol/L (3.5-5.5); Sodium 143 mmol/L (135-145); Total Bilirubin 0.6 mg/dL (0.3-1.2); Total Iron Binding Capacity 293 UG/DL (228-460); Total Protein 5.2 g/dL (6.2-8.2)
[2023-01-27 17:28] LABS: Basophils # (M) 0.03 X 10*3/uL (0.00-0.10); Eosinophils # (M) 0 X 10*3/uL (0.04-0.35); Hypochromasia (M) 2+; Lymphocytes # (M) 0.76 X 10*3/uL (0.90-5.00); Neutrophils % (M) 73 %
--- NOTE | 2023-01-27 17:49 | P.CONS ---
History of Present Illness - Reason for Consult Consult date: 01/27/23 pancreatic cancer, coffee ground emesis Requesting physician: Lisa Cuellar - Chief Complaint hematemesis - History of Present Illness Ms. Mallory is a pleasant female who is currently undergoing treatment for pancreatic adenocarcinoma with Oncologist Dr. Murray. She was initially evaluated by her PCP in 08/15 because of elevated liver enzymes. CT AP at [facility] 08/27/22 showed post mastectomy changes, with prominent intra-and extrahepatic biliary ductal dilatation with focal tapering in the region of the head of the pancreas. CXR did not show any significant findings. She was sent to [facility], where she had ERCP with EUS on 09/01/22. 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 Stent was placed. EUS revealed a 3.1 x 2.2 cm mass with significant involvement of the portal vein. Case was presented at the [facility] tumor Board on 09/03/22 and she was deemed not to be a surgical candidate, systemic chemotherapy was recommended and she was referred to Dr. Murray. Pt could not keep her initial appointment on 09/15/22 as she developed vomiting of blood. EGD showed a mucosal erosion next to the stent, which was felt to be the cause. Hgb remained overall stable after a transient drop. She was discharged on PPI and was seen for initial consultation on 09/30/22. She had lost about 130lbs over the previous year, she reported heavy alcohol use, quitting in 2021. She had staging PET scan that showed no evidence of metastatic disease. She started FOLFIRINOX 11/03/22, and completed cycle 5 on 01/20 with G-CSF. Regimen has been dose reduced due to adverse side effects. Plan is to reassess her after some chemo to see if she becomes resectable. If not, chemo/XRT may be used. If pt is NOT a candidate f or resection then, unfortunately, she will not be curable. She is currently admitted with c/o N,V,D, and coffee ground emesis. She is reporting improvement in diarrhea but is having persisting n/v, last episode of hematemesis was this morning. She has had decreased oral intake causing her to become increasingly weak. CBC evealed WBC 2.8, hemoglobin 7.2, platelets 110,000. Creatinine 0.46. K 2.8 upon admission, now normal. Sodium normal. RSV COVID and influenza negative. UA not suspicious for UTI. Blood cultures pending. Patient is afebrile. Review of Systems 10 point ROS is negative except as stated in the HPI Past Medical History Past Medical History: Asthma, Cancer, COPD, GERD/Reflux, Memory Impairment, Musculoskeletal Disorder, Osteoarthritis (OA), Sleep Apnea/CPAP/BIPAP Additional Past Medical History / Comment(s): PT STATES SOME MEMORY PROBLEMS AND LEARNING DISABILITY, HAS FRIEND WHO HELPS HER WITH MEDICATIONS AND APPTS., STATES MUSCLE SPASMS, BACK PROBLEMS WITH DISC DISEASE, ANEMIA, URINARY URGENCY, PROBLEMS WITH DIARRHEA & CONSTIPATION.Pancreatic CA diagnosed August 2022 History of Any Multi-Drug Resistant Organisms: None Reported Past Surgical History: Section, Cholecystectomy, Hysterectomy Additional Past Surgical History / Comment(s): 2 C-SECTIONS, PARTIAL HYSTERECTOMY, BERNADETTE REMOVED. 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 Past Alcohol Use History: None Reported Past Drug Use History: None Reported - Past Family History Mother Family Medical History: Cancer Additional Family Medical History / Comment(s): LUNG AND BRAIN CA Medications and Allergies Home Medications Medication Instructions Recorded Confirmed Type Albuterol Inhaler [Ventolin Hfa 1 - 2 puff INHALATION RT-Q6H PRN 11/03/22 01/26/23 History Inhaler] Aspirin EC [Ecotrin Low Dose] 81 mg PO DAILY 11/03/22 01/26/23 History DULoxetine HCL [Cymbalta] 30 mg PO BID 11/03/22 01/26/23 History Ferrous Sulfate [Iron] 325 mg PO DAILY 11/03/22 01/26/23 History Fluticasone/Umeclidin/Vilanter 1 puff INHALATION RT-DAILY 11/03/22 01/26/23 History [Trelegy Ellipta 100-62.5-25] Metoprolol Tartrate [Lopressor] 25 mg PO BID 11/03/22 01/26/23 History Midodrine HCl 5 mg PO TID 11/03/22 01/26/23 History Potassium Chloride ER [K-Dur 20] 20 meq PO BID 11/03/22 01/26/23 History calcitrioL [Calcitriol] 0.25 mcg PO DAILY 11/03/22 01/26/23 History Budesonide [Pulmicort] 0.5 mg INHALATION RT-BID 11/28/22 01/26/23 History Cholestyramine (with Sugar) 4 gm PO BID 11/28/22 01/26/23 History [Cholestyramine Powder] Famotidine [Pepcid] 40 mg PO DAILY 11/28/22 01/26/23 History Ipratropium-Albuterol Nebulize 3 ml INHALATION RT-Q6H PRN 11/28/22 01/26/23 History [Duoneb 0.5 mg-3 mg/3 ml Soln] LORazepam [Ativan] 0.5 mg PO Q8HR PRN 11/28/22 01/26/23 History Ondansetron [Zofran] 4 mg PO DAILY PRN 11/28/22 01/26/23 History Pantoprazole Sodium [Protonix] 40 mg PO DAILY 11/28/22 01/26/23 History Rosuvastatin Calcium 5 mg PO HS 11/28/22 01/26/23 History lamoTRIgine [LaMICtal] 75 mg PO HS 11/28/22 01/26/23 History Aprepitant [Aprepitant Tri-Pack See Taper PO DIRECTED 01/26/23 01/26/23 History 125 mg (1 cap) + 80 mg (2 caps)] Cyanocobalamin (Vitamin B-12) 1,000 mcg PO DAILY 01/26/23 01/26/23 History [Vitamin B-12] Ergocalciferol (Vitamin D2) 1,250 mcg PO ROGEL 01/26/23 01/26/23 History [Drisdol (50,000 Iu)] Allergies Allergy/AdvReac Type Severity Reaction Status Date / Time No Known Allergies Allergy Verified 01/26/23 17:38 Physical Exam Vitals: Vital Signs Temp Pulse Pulse Resp BP BP Pulse Ox 01/27/23 16:26 97.1 F L 79 155/92 98 01/27/23 16:20 97.9 F 88 14 145/89 99 01/27/23 15:07 84 01/27/23 14:55 92 01/27/23 12:32 98.2 F 79 16 132/82 100 01/27/23 07:30 98.5 F 142 H 16 138/55 95 01/27/23 02:00 107 H 16 144/80 100 01/27/23 01:03 98.5 F 72 16 128/74 94 L 01/27/23 00:40 18 01/26/23 23:10 98.8 F 75 18 123/90 100 01/26/23 21:41 80 17 143/105 97 01/26/23 18:17 77 18 145/83 100 Intake and Output 01/27/23 01/27/23 01/27/23 06:59 14:59 22:59 Intake Total 120 0 Balance 120 0 Intake: Oral 120 Blood Product 0 Unit 0 Other: Voiding Method Toilet # Voids 1 1 # Emeses 2 Weight 51.71 kg - Constitutional General appearance: average body habitus, no acute distress - EENT Eyes: anicteric sclerae, EOMI ENT: hearing grossly normal - Respiratory Respiratory: bilateral: CTA - Cardiovascular Rhythm: regular Heart sounds: normal: S1, S2 - Gastrointestinal diffuse tenderness, no guarding - Integumentary Integumentary: cyanotic, pale - Musculoskeletal Musculoskeletal: generalized weakness - Psychiatric Psychiatric: A&O x's 3 Results CBC & Chem 7: 01/27/23 11:09 01/27/23 11:09 Labs: Abnormal Lab Results - Last 24 Hours (Table) 01/26/23 01/26/23 01/27/23 Range/Units 15:41 15:41 03:00 WBC (3.8-10.6) k/uL RBC (3.80-5.40) m/uL Hgb (11.4-16.0) gm/dL Hct (34.0-46.0) % MCHC (32.0-37.0) g/dL RDW (11.5-15.5) % Plt Count (150-450) k/uL Potassium 2.8 L (3.5-5.1) mmol/L BUN (7-17) mg/dL Creatinine 0.47 L (0.52-1.04) mg/dL Glucose 122 H (74-99) mg/dL Plasma Lactic Acid Mak 2.1 H* (0.7-2.0) mmol/L Calcium 8.1 L (8.4-10.2) mg/dL AST 51 H (14-36) U/L Total Protein 5.6 L (6.3-8.2) g/dL Albumin 3.1 L (3.5-5.0) g/dL Urine Protein 1+ H (Negative) Urine Glucose (UA) Trace H (Negative) Urine Ketones 1+ H (Negative) Urine WBC 11 H (0-5) /hpf Amorphous Sediment Rare H (None) /hpf Urine Bacteria Occasional H (None) /hpf Hyaline Casts 25 H (0-2) /lpf Urine Mucus Many H (None) /hpf Crossmatch 01/27/23 01/27/23 01/27/23 Range/Units 09:14 09:14 11:09 WBC 2.8 L 3.29 L (3.8-10.6) k/uL RBC 2.41 L 2.42 L (3.80-5.40) m/uL Hgb 7.2 L D 7.1 L (11.4-16.0) gm/dL Hct 22.3 L 23.4 L (34.0-46.0) % MCHC 30.3 L (32.0-37.0) g/dL RDW 18.1 H 17.9 H (11.5-15.5) % Plt Count 110 L 122 L (150-450) k/uL Potassium (3.5-5.1) mmol/L BUN 20 H (7-17) mg/dL Creatinine 0.46 L (0.52-1.04) mg/dL Glucose 142 H (74-99) mg/dL Plasma Lactic Acid Mak (0.7-2.0) mmol/L Calcium 8.1 L (8.4-10.2) mg/dL AST (14-36) U/L Total Protein (6.3-8.2) g/dL Albumin (3.5-5.0) g/dL Urine Protein (Negative) Urine Glucose (UA) (Negative) Urine Ketones (Negative) Urine WBC (0-5) /hpf Amorphous Sediment (None) /hpf Urine Bacteria (None) /hpf Hyaline Casts (0-2) /lpf Urine Mucus (None) /hpf Crossmatch 01/27/23 Range/Units 11:09 WBC (3.8-10.6) k/uL RBC (3.80-5.40) m/uL Hgb (11.4-16.0) gm/dL Hct (34.0-46.0) % MCHC (32.0-37.0) g/dL RDW (11.5-15.5) % Plt Count (150-450) k/uL Potassium (3.5-5.1) mmol/L BUN (7-17) mg/dL Creatinine (0.52-1.04) mg/dL Glucose (74-99) mg/dL Plasma Lactic Acid Mak (0.7-2.0) mmol/L Calcium (8.4-10.2) mg/dL AST (14-36) U/L Total Protein (6.3-8.2) g/dL Albumin (3.5-5.0) g/dL Urine Protein (Negative) Urine Glucose (UA) (Negative) Urine Ketones (Negative) Urine WBC (0-5) /hpf Amorphous Sediment (None) /hpf Urine Bacteria (None) /hpf Hyaline Casts (0-2) /lpf Urine Mucus (None) /hpf Crossmatch See Detail Assessment and Plan (1) Hematemesis Current Visit: Yes Status: Acute Priority: High Code(s): K92.0 - HEMATEMESIS SNOMED Code(s): 1748015 (2) Chemotherapy induced diarrhea Current Visit: Yes Status: Acute Priority: High Code(s): K52.1 - TOXIC GASTROENTERITIS AND COLITIS; T45.1X5A - ADVERSE EFFECT OF ANTINEOPLASTIC AND IMMUNOSUP DRUGS, INIT SNOMED Code(s): 455934258 (3) Chemotherapy induced nausea and vomiting Current Visit: Yes Status: Acute Priority: High Code(s): R11.2 - NAUSEA WITH VOMITING, UNSPECIFIED; T45.1X5A - ADVERSE EFFECT OF ANTINEOPLASTIC AND IMMUNOSUP DRUGS, INIT SNOMED Code(s): 36843237 (4) Primary pancreatic adenocarcinoma Current Visit: Yes Status: Acute Priority: High Code(s): C25.9 - MALIGNANT NEOPLASM OF PANCREAS, UNSPECIFIED SNOMED Code(s): 1495479051213 Plan: Pancreatic adenocarcinoma -On 11/04 Dr. Murray reviewed with the pt that PET scan showed no evidence of metastatic disease. On initial evaluation at [facility] pt was deemed not resectable. Treatment intent, without resection, is not likely to be curable. She has been started on systemic therapy. Local radiation with concurrent low-dose chemotherapy can be considered as part of her regimen if she tolerates chemo- which she has not thus far-was another option, intent would be definitive treatment. Alternatively, if she has a good response to systemic chemotherapy, then she can be reevaluated for resectability. -Completed cycle 5 on 01/20 with G-CSF. Regimen has been dose reduced twice due to adverse side effects. Chemotherapy treatment will be on hold until f/u with Dr. Murray, last cycle may need to be held. -Will schedule clinic f/u to reassess upon discharge N,V,D, Hematemesis -2/2 chemo -N/V persisting. Anti-emetic regimen adjusted. Diarrhea improving, questran ordered -Last episode of hematemesis this morning. GI following. Plan for EGD in the morning if hematemesis persisting -Continue anti-emetics and hydration Chemo induced pancytopenia -Secondary to chemotherapy superimposed by inflammation and hematemesis. -Hemoglobin 7.2 today, WBC 2.8. ANC 5,200 yesterday. Platelets 110,000 -Received 2 doses zarxio last week, will continue to monitor WBCs, may need additional G-CSF -Anemia workup ordered -Will continue to monitor. Please transfuse for hemoglobin less than 7 or if symptomatic attests: I seen and examined patient, Performed H&P, developed impression and plan of care. Discussed with dictator. Agree with documentation, dictated as a scribe
[2023-01-27 19:48] LABS: Anisocytosis Slight; Hypochromasia Slight; RBC 2.91 m/uL (3.80-5.40); RDW 16.4 % (11.5-15.5); WBC 2.8 k/uL (3.8-10.6)
[2023-01-27 19:49] LABS: HCT 26.8 % (34.0-46.0); MCH 30.9 pg (25.0-35.0); MCHC 33.6 g/dL (31.0-37.0); MCV 92.1 fL (80.0-100.0)
[2023-01-27] MEDS: IPRATROPIUM-ALBUTEROL 3 ML NEB INHALATION PRN (19:49)
[2023-01-27] MEDS: SYMBICORT 80-4.5 MCG INHALER INHALATION SCH (19:49)
[2023-01-27 19:50] LABS: Mean Platelet Volume 8.9; Platelet Count 95 k/uL (150-450)
[2023-01-27] MEDS ORDERED: BUDESONIDE 0.5 MG/2 ML NEBU INHALATION SCH (20:00)
[2023-01-27] MEDS: OLANZapine ODT 5 MG TAB PO SCH (20:53)
[2023-01-27] MEDS: CHOLESTYRAMINE (WITH SUGAR) 4 GM PACKET PO SCH (20:54)
[2023-01-27] MEDS: ATORVASTATIN 10 MG TAB PO SCH (20:54)
[2023-01-27] MEDS: DULoxetine HCL 30 MG CAPSULE.DR PO SCH (20:54)
[2023-01-27] MEDS: METOPROLOL TARTRATE 25 MG TAB PO SCH (20:54)
[2023-01-27] MEDS: lamoTRIgine 25 MG TAB PO SCH (20:54)
[2023-01-27] MEDS: POTASSIUM CHLORIDE ER 20 MEQ TAB.ER PO SCH (20:54)
[2023-01-28 00:29] LABS: Anisocytosis Slight; HCT 23.2 % (34.0-46.0); HGB 7.7 gm/dL (11.4-16.0); Hypochromasia Slight; MCH 30.9 pg (25.0-35.0); MCHC 33.1 g/dL (31.0-37.0); MCV 93.3 fL (80.0-100.0); Mean Platelet Volume 9.2; RBC 2.49 m/uL (3.80-5.40); RDW 16.3 % (11.5-15.5); WBC 2.3 k/uL (3.8-10.6)
[2023-01-28 00:39] LABS: Platelet Count 73 k/uL (150-450)
[2023-01-28] MEDS: SODIUM CHLORIDE 0.9% 1,000 ML IV SCH ×4 (01:27→20:19)
[2023-01-28] MEDS: HYDROmorphone 0.5 MG/0.5 ML SYRINGE IVP PRN (06:21)
[2023-01-28] MEDS: ONDANSETRON 4 MG/2 ML VIAL IVP PRN (06:22)
[2023-01-28] MEDS: IPRATROPIUM 0.5 MG/2.5 ML NEBU INHALATION SCH ×4 (07:20→19:43)
[2023-01-28] MEDS: SYMBICORT 80-4.5 MCG INHALER INHALATION SCH ×2 (07:20→19:43)
[2023-01-28 08:24] LABS: Anisocytosis Slight; HCT 26.2 % (34.0-46.0); HGB 8.3 gm/dL (11.4-16.0); Hypochromasia Slight; MCHC 31.6 g/dL (31.0-37.0); MCV 91.7 fL (80.0-100.0); RBC 2.86 m/uL (3.80-5.40); RDW 16.4 % (11.5-15.5); WBC 1.7 k/uL (3.8-10.6)
--- NOTE | 2023-01-28 10:33 | P.PN ---
Subjective Progress Note Date: 01/28/23 Luz Marina Mallory, is a 57-year-old female with known history of pancreatic cancer, who presented to [facility] emergency room with a chief complaint of nausea vomiting and diarrhea. Patient was at the infusion center today she had an episode of coffee ground material vomiting and was sent to emergency room. She was evaluated in the emergency room vital examination on presentation reve aled vital signs temp 98.5, heart rate 72, respiratory 16, blood pressure 120/74 to 94% Laboratory data reveals globin 9.8, potassium low at 2.8, creatinine 0.47 bun 13 white blood cell 5.8 Patient was admitted to medical floor for further evaluation and treatment Past medical history is significant for pancreatic cancer in which she is receiving chemotherapy. Additional medical history includes asthma, COPD, GERD, osteoarthritis anxiety and depression. On review of systems patient's alert and oriented 3. Patient reports nausea vomiting with poor appetite. Patient denies chest pain or shortness of breath On 01/27/2023 patient is alert and oriented 3 currently resting comfortably in bed. Patient still complaining of occasional nausea has not been able to eat. Discussed case with GI services tentative plans for possible EGD tomorrow. Repeat labs have been ordered. 2-D echo has been ordered. Cardiology, oncology and GI services following On 01/28/2023 patient's alert and oriented 3 patient received 1 unit PRBCs hemoglobin improving to 8.3 this a.m. Discussed case with GI services may not do EGD per GI due to recent EGDs completed at [facility]. Current vital signs temp 98.5, heart rate 82, respiratory rate 15, blood pressure 109/69 with a pulse ox of 95%. Oncology, GI and cardiology services are following patient denies chest pain or shortness breath. Patient denies nausea vomiting or diarrhea. Patient denies any urinary burning or frequency Objective - Vital Signs Vital signs: Vital Signs Temp 98.5 F 01/28/23 06:18 Pulse 82 01/28/23 06:18 Resp 15 01/28/23 06:18 BP 109/69 01/28/23 06:18 Pulse Ox 95 01/28/23 06:18 FiO2 Intake & Output 01/27/23 01/28/23 01/28/23 18:59 06:59 18:59 Intake Total 1350 310 Balance 1350 310 Intake: Intake, IV Titration 1040 Amount Sodium Chloride 0.9% 1, 1040 000 ml @ 130 mls/hr IV . Q7H42M [facility] Rx#:[id number] Blood Product 310 310 Rc As-1 Unit 0 310 [id number] Other: Voiding Method Toilet # Voids 3 1 # Bowel Movements 1 1 - Exam In general patient is alert and oriented x 3 in no distress HEENT head normocephalic and atraumatic Neck is supple no JVD no goiter no lymphadenopathy no carotid bruit Chest examination is clear to auscultation no crackles no wheezing Cardiac exam reveals regular heart sounds S1 and S2 no gallops no murmurs Abdomen is soft nontender no organomegaly with normal bowel sounds Extremity exam reveals no edema no cyanosis or clubbing Neurological examination reveals no gross focal deficits - Labs CBC & Chem 7: 01/28/23 06:28 01/27/23 11:09 Labs: Abnormal Lab Results - Last 24 Hours (Table) 01/27/23 01/27/23 01/27/23 Range/Units 09:14 11:09 11:09 WBC 2.8 L 3.29 L (3.8-10.6) k/uL RBC 2.41 L 2.42 L (3.80-5.40) m/uL Hgb 7.2 L D 7.1 L (11.4-16.0) gm/dL Hct 22.3 L 23.4 L (34.0-46.0) % MCHC 30.3 L (32.0-37.0) g/dL RDW 18.1 H 17.9 H (11.5-15.5) % Plt Count 110 L 122 L (150-450) k/uL Lymphocytes # (Manual) 0.76 L (0.90-5.00) X 10*3/uL Monocytes # (Manual) 0.10 L (0.20-1.00) X 10*3/uL Eosinophils # (Manual) 0 L (0.04-0.35) X 10*3/uL Hypochromasia (manual) 2+ A BUN/Creatinine Ratio 31.50 H (12.00-20.00) Ratio Glucose 132 H (70-110) mg/dL Calcium 8.6 L (8.7-10.3) mg/dL Ferritin 668.0 H (10.0-291.0) ng/mL AST 47 H (13-35) U/L Total Protein 5.2 L (6.2-8.2) g/dL Albumin 3.3 L (3.8-4.9) g/dL Vitamin B12 2895.0 H (200.0-944.0) pg/mL Folate (4.40-31.00) ng/mL Crossmatch 01/27/23 01/27/23 01/27/23 Range/Units 11:09 11:09 19:30 WBC 2.8 L (3.8-10.6) k/uL RBC 2.91 L (3.80-5.40) m/uL Hgb 9.0 L D (11.4-16.0) gm/dL Hct 26.8 L (34.0-46.0) % MCHC (32.0-37.0) g/dL RDW 16.4 H (11.5-15.5) % Plt Count 95 L (150-450) k/uL Lymphocytes # (Manual) (0.90-5.00) X 10*3/uL Monocytes # (Manual) (0.20-1.00) X 10*3/uL Eosinophils # (Manual) (0.04-0.35) X 10*3/uL Hypochromasia (manual) BUN/Creatinine Ratio (12.00-20.00) Ratio Glucose (70-110) mg/dL Calcium (8.7-10.3) mg/dL Ferritin (10.0-291.0) ng/mL AST (13-35) U/L Total Protein (6.2-8.2) g/dL Albumin (3.8-4.9) g/dL Vitamin B12 (200.0-944.0) pg/mL Folate 34.30 H (4.40-31.00) ng/mL Crossmatch See Detail 01/28/23 01/28/23 Range/Units 00:16 06:28 WBC 2.3 L 1.7 L (3.8-10.6) k/uL RBC 2.49 L 2.86 L (3.80-5.40) m/uL Hgb 7.7 L 8.3 L (11.4-16.0) gm/dL Hct 23.2 L 26.2 L (34.0-46.0) % MCHC (32.0-37.0) g/dL RDW 16.3 H 16.4 H (11.5-15.5) % Plt Count 73 L (150-450) k/uL Lymphocytes # (Manual) (0.90-5.00) X 10*3/uL Monocytes # (Manual) (0.20-1.00) X 10*3/uL Eosinophils # (Manual) (0.04-0.35) X 10*3/uL Hypochromasia (manual) BUN/Creatinine Ratio (12.00-20.00) Ratio Glucose (70-110) mg/dL Calcium (8.7-10.3) mg/dL Ferritin (10.0-291.0) ng/mL AST (13-35) U/L Total Protein (6.2-8.2) g/dL Albumin (3.8-4.9) g/dL Vitamin B12 (200.0-944.0) pg/mL Folate (4.40-31.00) ng/mL Crossmatch Microbiology - Last 24 Hours (Table) 01/26/23 21:01 Blood Culture - Preliminary Blood 01/26/23 21:16 Blood Culture - Preliminary Blood Assessment and Plan Assessment: 1. Nausea vomiting with coffee-ground emesis. Status post 1 unit PRBCs on 1 2. Chest pain 3. Dehydration with electrolyte imbalance 4. Hypokalemia 5. Recent diagnosis of pancreatic cancer with metastatic disease currently receiving chemotherapy 6. History of osteoarthritis 7. History of obstructive sleep apnea DVT prophylaxis SCDs. GI prophylaxis Protonix GI, cardiology and oncology service is consulted Tentative plans for EGD on 01/28/2023 2-D echo ordered per cardiology Repeat labs ordered
--- NOTE | 2023-01-28 11:02 | CA ---
Transthoracic Echo Report Name: Luz Marina Mallory Age: 57 Gender: F : 1965 Exam Date: 01/27/2023 11:51 Exam Location: [facility] Ht (in): 52 Wt (lb): 114 Ordering Physician: Diana Blanchard Attending/Referring Phys: [id number], [employer] Montse Aguirre RDCS Procedure CPT: Indications: LV function Cardiac Hx: Technical Quality: Fair Contrast 1: Total Dose (mL): Contrast 2: Total Dose (mL): MEASUREMENTS (Male / Female) Normal Values 2D ECHO LV Diastolic Diameter PLAX 3.1 cm 4.2 - 5.9 / 3.9 - 5.3 cm LV Systolic Diameter PLAX 2.0 cm IVS Diastolic Thickness 1.2 cm 0.6 - 1.0 / 0.6 - 0.9 cm LVPW Diastolic Thickness 1.0 cm 0.6 - 1.0 / 0.6 - 0.9 cm LV Relative Wall Thickness 0.7 RV Internal Dim ED PLAX 4.2 cm LA Volume 31.5 cm??? 18 - 58 / 22 - 52 cm??? LA Volume Index 22.5 cm???/m??? 16 - 28 cm???/m??? M-MODE Aortic Root Diameter MM 2.9 cm LA Systolic Diameter MM 3.7 cm LA Ao Ratio MM 1.2 AV Cusp Separation MM 1.2 cm DOPPLER AV Peak Velocity 109.1 cm/s AV Peak Gradient 4.8 mmHg AV Mean Velocity 75.2 cm/s AV Mean Gradient 2.6 mmHg AV Velocity Time Integral 20.3 cm LVOT Peak Velocity 103.4 cm/s LVOT Peak Gradient 4.3 mmHg LVOT Velocity Time Integral 21.0 cm MV Area PHT 3.3 cm??? Mitral E Point Velocity 74.2 cm/s Mitral A Point Velocity 98.3 cm/s Mitral E to A Ratio 0.8 MV Deceleration Time 230.2 ms MV E' Velocity 8.4 cm/s Mitral E to MV E' Ratio 8.8 TR Peak Velocity 212.0 cm/s TR Peak Gradient 18.0 mmHg Right Ventricular Systolic Press 21.9 mmHg FINDINGS Left Ventricle Mildly increased left ventricular wall thickness. Left ventricular cavity size normal. Normal left ventricular systolic function with no obvious regional wall motion abnormalities. Left ventricular ejection fraction is estimated at 55-60 %. Right Ventricle Mild right ventricular dilatation. Right ventricular systolic pressure within normal limits. Right Atrium Normal right atrial size. Left Atrium Normal left atrial size. Mitral Valve Structurally normal mitral valve. No mitral stenosis, regurgitation or prolapse. Aortic Valve No aortic valve stenosis or regurgitation. Tricuspid Valve Structurally normal tricuspid valve. Mild tricuspid regurgitation. Pulmonic Valve Trace pulmonic regurgitation. Pericardium No pericardial effusion. Aorta Normal size aortic root and proximal ascending aorta. CONCLUSIONS Technically difficult study with poor acoustic windows Normal LV systolic function Previewed by: Dr. Karthikeyan Norton MD (Electronically Signed) Final Date: 28 January 2023 11:01
[2023-01-28 11:14] LABS: Platelet Count 55 k/uL (150-450)
--- NOTE | 2023-01-28 11:42 | P.PN ---
Subjective HISTORY OF PRESENT ILLNESS: This is a 57-year-old female with a past medical history significant for pancreatic cancer undergoing chemotherapy, hypertension, hyperlipidemia, depression, COPD, former nicotine dependence, and GERD. Patient follows in the office with Dr. Ware. We have been asked to see the patient in consultation for chest pain. Patient examined at the bedside. Patient is currently admitted to the hospital secondary to coffee-ground emesis. She has been followed by GI and also oncology as she has a history of pancreatic cancer. The patient states she has been having diarrhea for the past 2-3 days at home. She also reports nausea with episodes of vomiting. She reports decreased oral intake. She reports right lower quadrant abdominal pain this morning. She also reports having some left-sided chest discomfort which started after she had episodes of vomiting. She does have epigastric tenderness at the time of examination. * No EKG available at the time of this dictation * Laboratory data: Hemoglobin 9.4. Potassium 2.8. Repeat 5.0. * Current home cardiac medications include aspirin 81 mg daily * Most recent echocardiogram obtained in October 2018 revealed ejection fraction 60% * Cardiac catheterization history: April [address] [facility] revealing a right dominant system with spasm of the RCA with cannulation. 35% smooth narrowing in the proximal portion. No other significant disease. Filling pressure is normal. 01/28/2023 Patient examined this morning at the bedside. Patient currently denies shortness of breath. She denies chest pain or pressure. Vital signs are stable. Echocardiogram completed revealing ejection fraction 55-60% with mild TR. PHYSICAL EXAM: VITAL SIGNS: Reviewed. GENERAL: Well-developed in no acute distress. HEENT: Head is normocephalic. Pupils are equal, round. Sclerae anicteric. Mucous membranes of the mouth are moist. Neck supple. No JVD or thyromegaly LUNGS: Respirations even and unlabored. Lungs essentially clear to auscultation bilaterally. HEART: Regular rate and rhythm. S1 and S2 heard. ABDOMEN: Soft. Nondistended. Nontender. EXTREMITIES: Normal range of motion. No clubbing or cyanosis. Peripheral pulses intact. No lower extremity edema NEUROLOGIC: Awake and alert. Oriented x 3. ASSESSMENT: Nausea and vomiting with coffee-ground emesis Diarrhea Hypokalemia Chest pain, atypical, appears to be GI in etiology secondary to vomiting Nonobstructive CAD Hypertension Hyperlipidemia COPD Depression Former nicotine dependence GERD PLAN: Resume aspirin. Okay with GI service Continue additional cardiac medications No further inpatient recommendations from a cardiac standpoint We will sign off. Please reconsult if needed. Nurse practitioner note has been reviewed by physician. Signing provider agrees with the documented findings, assessment, and plan of care. Objective - Vital Signs Vital signs: Vital Signs Temp 98.5 F 01/28/23 06:18 Pulse 82 01/28/23 06:18 Resp 15 01/28/23 06:18 BP 109/69 01/28/23 06:18 Pulse Ox 95 01/28/23 06:18 FiO2 Intake & Output 01/27/23 01/28/23 01/28/23 18:59 06:59 18:59 Intake Total 1350 310 Balance 1350 310 Intake: Intake, IV Titration 1040 Amount Sodium Chloride 0.9% 1, 1040 000 ml @ 130 mls/hr IV . Q7H42M [facility] Rx#:[id number] Blood Product 310 310 Rc As-1 Unit 0 310 [id number] Other: Voiding Method Toilet # Voids 3 1 # Bowel Movements 1 1 - Labs CBC & Chem 7: 01/28/23 06:28 01/27/23 11:09 Labs: Abnormal Lab Results - Last 24 Hours (Table) 01/27/23 01/27/23 01/27/23 Range/Units 11:09 11:09 11:09 WBC 3.29 L (4.50-10.00) X 10*3/uL RBC 2.42 L (4.10-5.20) X 10*6/uL Hgb 7.1 L (12.0-15.0) g/dL Hct 23.4 L (37.2-46.3) % MCHC 30.3 L (32.0-37.0) g/dL RDW 17.9 H (11.5-14.5) % Plt Count 122 L (140-440) X 10*3/uL Lymphocytes # (Manual) 0.76 L (0.90-5.00) X 10*3/uL Monocytes # (Manual) 0.10 L (0.20-1.00) X 10*3/uL Eosinophils # (Manual) 0 L (0.04-0.35) X 10*3/uL Hypochromasia (manual) 2+ A BUN/Creatinine Ratio 31.50 H (12.00-20.00) Ratio Glucose 132 H (70-110) mg/dL Calcium 8.6 L (8.7-10.3) mg/dL Ferritin 668.0 H (10.0-291.0) ng/mL AST 47 H (13-35) U/L Total Protein 5.2 L (6.2-8.2) g/dL Albumin 3.3 L (3.8-4.9) g/dL Vitamin B12 2895.0 H (200.0-944.0) pg/mL Folate (4.40-31.00) ng/mL Crossmatch See Detail 01/27/23 01/27/23 01/28/23 Range/Units 11:09 19:30 00:16 WBC 2.8 L 2.3 L (4.50-10.00) X 10*3/uL RBC 2.91 L 2.49 L (4.10-5.20) X 10*6/uL Hgb 9.0 L D 7.7 L (12.0-15.0) g/dL Hct 26.8 L 23.2 L (37.2-46.3) % MCHC (32.0-37.0) g/dL RDW 16.4 H 16.3 H (11.5-14.5) % Plt Count 95 L 73 L (140-440) X 10*3/uL Lymphocytes # (Manual) (0.90-5.00) X 10*3/uL Monocytes # (Manual) (0.20-1.00) X 10*3/uL Eosinophils # (Manual) (0.04-0.35) X 10*3/uL Hypochromasia (manual) BUN/Creatinine Ratio (12.00-20.00) Ratio Glucose (70-110) mg/dL Calcium (8.7-10.3) mg/dL Ferritin (10.0-291.0) ng/mL AST (13-35) U/L Total Protein (6.2-8.2) g/dL Albumin (3.8-4.9) g/dL Vitamin B12 (200.0-944.0) pg/mL Folate 34.30 H (4.40-31.00) ng/mL Crossmatch 12/06/23 Range/Units 06:28 WBC 1.7 L (4.50-10.00) X 10*3/uL RBC 2.86 L (4.10-5.20) X 10*6/uL Hgb 8.3 L (12.0-15.0) g/dL Hct 26.2 L (37.2-46.3) % MCHC (32.0-37.0) g/dL RDW 16.4 H (11.5-14.5) % Plt Count 55 L (140-440) X 10*3/uL Lymphocytes # (Manual) (0.90-5.00) X 10*3/uL Monocytes # (Manual) (0.20-1.00) X 10*3/uL Eosinophils # (Manual) (0.04-0.35) X 10*3/uL Hypochromasia (manual) BUN/Creatinine Ratio (12.00-20.00) Ratio Glucose (70-110) mg/dL Calcium (8.7-10.3) mg/dL Ferritin (10.0-291.0) ng/mL AST (13-35) U/L Total Protein (6.2-8.2) g/dL Albumin (3.8-4.9) g/dL Vitamin B12 (200.0-944.0) pg/mL Folate (4.40-31.00) ng/mL Crossmatch Microbiology - Last 24 Hours (Table) 01/26/23 21:01 Blood Culture - Preliminary Blood 01/26/23 21:16 Blood Culture - Preliminary Blood
[2023-01-28] MEDS: CHOLESTYRAMINE (WITH SUGAR) 4 GM PACKET PO SCH ×2 (12:33→21:24)
[2023-01-28] MEDS: FERROUS SULFATE 325 MG TAB PO SCH (12:33)
[2023-01-28] MEDS: PANTOPRAZOLE 40 MG/10 ML VIAL IVP SCH ×2 (12:34→21:24)
[2023-01-28] MEDS: CYANOCOBALAMIN 500 MCG TAB PO SCH (12:34)
[2023-01-28] MEDS: FAMOTIDINE 20 MG TAB PO SCH (12:34)
[2023-01-28] MEDS: DULoxetine HCL 30 MG CAPSULE.DR PO SCH ×2 (12:35→21:34)
[2023-01-28] MEDS: METOPROLOL TARTRATE 25 MG TAB PO SCH ×2 (12:35→21:24)
[2023-01-28] MEDS: MIDODRINE 5 MG TAB PO SCH ×3 (12:36→18:32)
[2023-01-28] MEDS: POTASSIUM CHLORIDE ER 20 MEQ TAB.ER PO SCH ×2 (12:36→21:24)
[2023-01-28] MEDS ORDERED: FILGRASTIM-SNDZ 300 MCG/0.5 ML SYRINGE SQ ONE (13:00)
[2023-01-28] MEDS: ASPIRIN 81 MG PO SCH (15:40)
--- NOTE | 2023-01-28 16:02 | P.PN ---
Subjective Progress Note Date: 01/28/23 Principal diagnosis: Coffee-ground emesis, anemia This is a pleasant 57-year-old female who was sent over from [facility] for nausea, vomiting and diarrhea. Patient has pancreatic cancer and was receiving chemotherapy. Started chemo in October. States she's been having increased nausea and vomiting. She started having coffee-ground emesis that began on Thursday or Thursday. Upon walking into the patient's room she started vomiting large amounts of coffee-ground liquid emesis. She does have a history of hiatal hernia and Reina's esophagus. Last documented EGD and colonoscopy report available was from October [address] Bolden which reported hiatal corby ia and short segment of Reina's esophagus. Colonoscopy found mild sigmoid diverticulosis. However patient does state that she's had more recent EGD done however she is not sure when but believes it was done at [facility] with Dr. Burns. She denies any anticoagulation other than 81 mg aspirin daily. Denies any regular NSAID use. She was admitted with a hemoglobin of 9.4 potassium was 2.8 and replaced with a repeat potassium of 5.0 this morning.Patient denies any abdominal pain, does have nausea and emesis. She was given a regular diet for breakfast this morning and did eat a cup of fruit and took and liquids throughout the night and this morning. Admitting labs WBC 5.8 hemoglobin 9.4 hematocrit 28 platelet count 114,000 sodium 141 potassium 2.8 BUN 13 creatinine 0.4 total bilirubin 0.7 AST 51 ALT 30 alkaline phosphatase 107 lipase 59 01/28/2023 Patient seen and examined today as a follow-up. States she does not feel well she has chest pain and frequent diarrhea. She denies any nausea or vomiting and no further coffee-ground emesis. She denies any abdominal pain. She is status post 1 unit of blood transfusion with a repeat hemoglobin today of 8.3. Iron 81 TIBC 293 saturation 27 ferritin 668 vitamin B12 2895 folate 34.3 Objective - Vital Signs Vital signs: Vital Signs Temp 98.5 F 01/28/23 06:18 Pulse 82 01/28/23 06:18 Resp 15 01/28/23 06:18 BP 109/69 01/28/23 06:18 Pulse Ox 95 01/28/23 06:18 FiO2 Intake & Output 01/27/23 01/28/2323 18:59 06:59 18:59 Intake Total 1350 310 Balance 1350 310 Intake: Intake, IV Titration 1040 Amount Sodium Chloride 0.9% 1, 1040 000 ml @ 130 mls/hr IV . Q7H42M [facility] Rx#:[id number] Blood Product 310 310 Rc As-1 Unit 0 310 [id number] Other: Voiding Method Toilet # Voids 3 1 # Bowel Movements 1 1 - Exam General appearance: The patient is alert, oriented, appears in no acute distr ess. HET: Head is normocephalic and atraumatic. Conjunctiva pink. Sclera anicteric. Neck: Supple without lymphadenopathy. Abdomen: Soft, nontender, nondistended with bowel sounds. No guarding or rigidity. Extremities: Normal skin color and turgor. No pedal edema Skin: No rashes, no jaundice Neurological: No focal deficits. Alert and oriented. - Labs CBC & Chem 7: 01/28/23 06:28 01/27/23 11:09 Labs: Abnormal Lab Results - Last 24 Hours (Table) 01/27/23 01/27/23 01/27/23 Range/Units 11:09 11:09 11:09 WBC 3.29 L (4.50-10.00) X 10*3/uL RBC 2.42 L (4.10-5.20) X 10*6/uL Hgb 7.1 L (12.0-15.0) g/dL Hct 23.4 L (37.2-46.3) % MCHC 30.3 L (32.0-37.0) g/dL RDW 17.9 H (11.5-14.5) % Plt Count 122 L (140-440) X 10*3/uL Lymphocytes # (Manual) 0.76 L (0.90-5.00) X 10*3/uL Monocytes # (Manual) 0.10 L (0.20-1.00) X 10*3/uL Eosinophils # (Manual) 0 L (0.04-0.35) X 10*3/uL Hypochromasia (manual) 2+ A BUN/Creatinine Ratio 31.50 H (12.00-20.00) Ratio Glucose 132 H (70-110) mg/dL Calcium 8.6 L (8.7-10.3) mg/dL Ferritin 668.0 H (10.0-291.0) ng/mL AST 47 H (13-35) U/L Total Protein 5.2 L (6.2-8.2) g/dL Albumin 3.3 L (3.8-4.9) g/dL Vitamin B12 2895.0 H (200.0-944.0) pg/mL Folate (4.40-31.00) ng/mL Crossmatch See Detail 01/27/23 01/27/23 01/28/23 Range/Units 11:09 19:30 00:16 WBC 2.8 L 2.3 L (4.50-10.00) X 10*3/uL RBC 2.91 L 2.49 L (4.10-5.20) X 10*6/uL Hgb 9.0 L D 7.7 L (12.0-15.0) g/dL Hct 26.8 L 23.2 L (37.2-46.3) % MCHC (32.0-37.0) g/dL RDW 16.4 H 16.3 H (11.5-14.5) % Plt Count 95 L 73 L (140-440) X 10*3/uL Lymphocytes # (Manual) (0.90-5.00) X 10*3/uL Monocytes # (Manual) (0.20-1.00) X 10*3/uL Eosinophils # (Manual) (0.04-0.35) X 10*3/uL Hypochromasia (manual) BUN/Creatinine Ratio (12.00-20.00) Ratio Glucose (70-110) mg/dL Calcium (8.7-10.3) mg/dL Ferritin (10.0-291.0) ng/mL AST (13-35) U/L Total Protein (6.2-8.2) g/dL Albumin (3.8-4.9) g/dL Vitamin B12 (200.0-944.0) pg/mL Folate 34.30 H (4.40-31.00) ng/mL Crossmatch 01/28/23 Range/Units 06:28 WBC 1.7 L (4.50-10.00) X 10*3/uL RBC 2.86 L (4.10-5.20) X 10*6/uL Hgb 8.3 L (12.0-15.0) g/dL Hct 26.2 L (37.2-46.3) % MCHC (32.0-37.0) g/dL RDW 16.4 H (11.5-14.5) % Plt Count 55 L (140-440) X 10*3/uL Lymphocytes # (Manual) (0.90-5.00) X 10*3/uL Monocytes # (Manual) (0.20-1.00) X 10*3/uL Eosinophils # (Manual) (0.04-0.35) X 10*3/uL Hypochromasia (manual) BUN/Creatinine Ratio (12.00-20.00) Ratio Glucose (70-110) mg/dL Calcium (8.7-10.3) mg/dL Ferritin (10.0-291.0) ng/mL AST (13-35) U/L Total Protein (6.2-8.2) g/dL Albumin (3.8-4.9) g/dL Vitamin B12 (200.0-944.0) pg/mL Folate (4.40-31.00) ng/mL Crossmatch Microbiology - Last 24 Hours (Table) 01/26/23 21:01 Blood Culture - Preliminary Blood 01/26/23 21:16 Blood Culture - Preliminary Blood Assessment and Plan (1) GI bleed Current Visit: No Status: Acute Code(s): K92.2 - GASTROINTESTINAL HEMORRHAGE, UNSPECIFIED SNOMED Code(s): 85950696 (2) Hypokalemia Current Visit: No Status: Acute Priority: High Code(s): E87.6 - HYPOKALEMIA SNOMED Code(s): 02719804 (3) Nausea and vomiting Current Visit: Yes Status: Acute Code(s): R11.2 - NAUSEA WITH VOMITING, UNSPECIFIED SNOMED Code(s): 54478383 (4) Diarrhea Narrative/Plan: C. diff and stool cultures ordered Current Visit: No Status: Acute Priority: High Code(s): R19.7 - DIARRHEA, UNSPECIFIED SNOMED Code(s): 77050012 (5) Primary pancreatic adenocarcinoma Current Visit: Yes Status: Acute Priority: High Code(s): C25.9 - MALIGNANT NEOPLASM OF PANCREAS, UNSPECIFIED SNOMED Code(s): 3706462605784 Plan: 1. Continue symptomatic and supportive care 2. Daily CBC, transfuse for hemoglobin less than 7 3. Patient to be started on regular diet 4. Protonix 40 mg IV twice a day 5. No further coffee-ground emesis. Hemoglobin stable. We'll defer endoscopic evaluation as patient has had many endoscopic evaluations in the recent past. 6. Please collect C. diff and stool cultures 7. If C. diff is negative can treat diarrhea with Questran and/or Imodium You for this consultation, we will continue to follow. Dr. Eren Burns I agree with the dictator's note, documented as a scribe by Jennifer Sykes.
[2023-01-28] MEDS: IPRATROPIUM-ALBUTEROL 3 ML NEB INHALATION PRN (19:43)
[2023-01-28] MEDS: ATORVASTATIN 10 MG TAB PO SCH (21:24)
[2023-01-28] MEDS: lamoTRIgine 25 MG TAB PO SCH (21:24)
[2023-01-28] MEDS: OLANZapine ODT 5 MG TAB PO SCH (21:34)
[2023-01-29 07:58] LABS: African American GFR (CKD) >90 (>60 ml/min/1.73 sqM); Anion Gap 7 mmol/L; Blood Urea Nitrogen 5 mg/dL (7-17); Carbon Dioxide 20 mmol/L (22-30); Chloride 111 mmol/L (98-107); Glucose 77 mg/dL (74-99); Non-African American GFR(CKD) >90 (>60 ml/min/1.73 sqM); Potassium 3.4 mmol/L (3.5-5.1); Sodium 138 mmol/L (137-145)
[2023-01-29 08:03] LABS: Anisocytosis Slight; HCT 21.1 % (34.0-46.0); HGB 7.2 gm/dL (11.4-16.0); Hypochromasia Slight; MCH 31.1 pg (25.0-35.0); MCHC 33.9 g/dL (31.0-37.0); MCV 91.8 fL (80.0-100.0); RDW 16.5 % (11.5-15.5)
[2023-01-29 08:06] LABS: Platelet Count 55 k/uL (150-450)
[2023-01-29 08:08] LABS: WBC 1.3 k/uL (3.8-10.6)
[2023-01-29] MEDS: ASPIRIN 81 MG PO SCH (08:09)
[2023-01-29] MEDS: FAMOTIDINE 20 MG TAB PO SCH (08:09)
[2023-01-29] MEDS: MIDODRINE 5 MG TAB PO SCH ×3 (08:09→16:53)
[2023-01-29] MEDS: CHOLESTYRAMINE (WITH SUGAR) 4 GM PACKET PO SCH ×2 (08:09→21:06)
[2023-01-29] MEDS: METOPROLOL TARTRATE 25 MG TAB PO SCH ×3 (08:09→21:06)
[2023-01-29] MEDS: FERROUS SULFATE 325 MG TAB PO SCH (08:09)
[2023-01-29] MEDS: PANTOPRAZOLE 40 MG/10 ML VIAL IVP SCH ×2 (08:09→21:06)
[2023-01-29] MEDS: DULoxetine HCL 30 MG CAPSULE.DR PO SCH ×2 (08:09→21:06)
[2023-01-29] MEDS: POTASSIUM CHLORIDE ER 20 MEQ TAB.ER PO SCH ×6 (08:09→23:33)
[2023-01-29] MEDS: CYANOCOBALAMIN 500 MCG TAB PO SCH (08:09)
[2023-01-29] MEDS: SYMBICORT 80-4.5 MCG INHALER INHALATION SCH ×2 (08:30→18:25)
[2023-01-29] MEDS: IPRATROPIUM 0.5 MG/2.5 ML NEBU INHALATION SCH ×4 (08:30→18:25)
--- NOTE | 2023-01-29 10:59 | P.PN ---
Subjective Progress Note Date: 01/29/23 Principal diagnosis: Coffee-ground emesis, anemia This is a pleasant 57-year-old female who was sent over from [facility] for nausea, vomiting and diarrhea. Patient has pancreatic cancer and was receiving chemotherapy. Started chemo in October. States she's been having increased nausea and vomiting. She started having coffee-ground emesis that began on Thursday or Thursday. Upon walking into the patient's room she started vomiting large amounts of coffee-ground liquid emesis. She does have a history of hiatal hernia and Reina's esophagus. Last documented EGD and colonoscopy report available was from October [address] Bolden which reported hiatal corby ia and short segment of Reina's esophagus. Colonoscopy found mild sigmoid diverticulosis. However patient does state that she's had more recent EGD done however she is not sure when but believes it was done at [facility] with Dr. Burns. She denies any anticoagulation other than 81 mg aspirin daily. Denies any regular NSAID use. She was admitted with a hemoglobin of 9.4 potassium was 2.8 and replaced with a repeat potassium of 5.0 this morning.Patient denies any abdominal pain, does have nausea and emesis. She was given a regular diet for breakfast this morning and did eat a cup of fruit and took and liquids throughout the night and this morning. Admitting labs WBC 5.8 hemoglobin 9.4 hematocrit 28 platelet count 114,000 sodium 141 potassium 2.8 BUN 13 creatinine 0.4 total bilirubin 0.7 AST 51 ALT 30 alkaline phosphatase 107 lipase 59 01/28/2023 Patient seen and examined today as a follow-up. States she does not feel well she has chest pain and frequent diarrhea. She denies any nausea or vomiting and no further coffee-ground emesis. She denies any abdominal pain. She is status post 1 unit of blood transfusion with a repeat hemoglobin today of 8.3. Iron 81 TIBC 293 saturation 27 ferritin 668 vitamin B12 2895 folate 34.3 01/29/2023 Seen and examined today as a follow-up. She states abdominal pain improved, no chest pain, diarrhea is improving. Started on Questran. C. diff however not collected. She continues to deny any melena. No further vomiting. Today's labs WBC 1.3 hemoglobin 7.2 hematocrit 21 platelet count 55,000 sodium 138 potassium 3.4 BUN 5 creatinine 0.5 Objective - Vital Signs Vital signs: Vital Signs Temp 98.5 F 01/29/23 07:18 Pulse 81 01/29/23 07:18 Resp 18 01/29/23 07:18 BP 75/43 01/29/23 07:18 Pulse Ox 98 01/29/23 07:18 FiO2 Intake & Output 01/28/23 01/29/23 01/29/23 18:59 06:59 18:59 Intake Total 240 Output Total 740 340 Balance -500 -340 Intake: Oral 240 Output: Urine 400 Stool 340 340 Other: Voiding Method Toilet # Voids 3 1 1 # Bowel Movements 3 1 - Exam General appearance: The patient is alert, oriented, appears in no acute distress. HET: Head is normocephalic and atraumatic. Conjunctiva pink. Sclera anicteric. Neck: Supple without lymphadenopathy. Abdomen: Soft, nontender, nondistended with bowel sounds. No guarding or rigidity. Extremities: Normal skin color and turgor. No pedal edema Skin: No rashes, no jaundice Neurological: No focal deficits. Alert and oriented. - Labs CBC & Chem 7: 01/29/23 06:40 01/29/23 06:40 Labs: Abnormal Lab Results - Last 24 Hours (Table) 01/28/23 01/29/23 01/29/23 Range/Units 06:28 06:40 06:40 WBC 1.3 L* (3.8-10.6) k/uL RBC 2.30 L (3.80-5.40) m/uL Hgb 7.2 L (11.4-16.0) gm/dL Hct 21.1 L (34.0-46.0) % RDW 16.5 H (11.5-15.5) % Plt Count 55 L 55 L (150-450) k/uL Potassium 3.4 L (3.5-5.1) mmol/L Chloride 111 H (98-107) mmol/L Carbon Dioxide 20 L (22-30) mmol/L BUN 5 L (7-17) mg/dL Calcium 8.0 L (8.4-10.2) mg/dL Microbiology - Last 24 Hours (Table) 01/26/23 21:01 Blood Culture - Preliminary Blood 01/26/23 21:16 Blood Culture - Preliminary Blood Assessment and Plan (1) GI bleed Narrative/Plan: 57-year-old with a history of pancreatic cancer receiving chemotherapy sent over to the hospital for nausea vomiting and diarrhea. However patient's emesis has been coffee-ground in color for last 2-3 days duration. She is known to have a hemoglobin of 9.3 on admission and 1 she was evaluated today had approximately 200 mm of liquid coffee-ground emesis. She had a drop of her hemoglobin to 7.2. BUN also noted to be elevated today at 20. Suspect upper GI bleed possible peptic ulcer disease, gastritis, esophagitis, AVM or other possible etiology. However patient has had multiple recent EGDs in the past with known esophagitis and Reina's esophagus. Likely coffee-ground emesis related to esophagitis from severe nausea and vomiting from chemotherapy. No plans on endoscopic evaluation at this time as coffee-ground emesis has resolved. Patient is not having any melena. Current Visit: No Status: Acute Code(s): K92.2 - GASTROINTESTINAL HEMORRHAGE, UNSPECIFIED SNOMED Code(s): 17464078 (2) Hypokalemia Current Visit: No Status: Acute Priority: High Code(s): E87.6 - HYP OKALEMIA SNOMED Code(s): 89578548 (3) Nausea and vomiting Current Visit: Yes Status: Acute Code(s): R11.2 - NAUSEA WITH VOMITING, UNSPECIFIED SNOMED Code(s): 61542971 (4) Diarrhea Narrative/Plan: C. diff stool ordered, diarrhea improving. Current Visit: No Status: Acute Priority: High Code(s): R19.7 - DIARRHEA, UNSPECIFIED SNOMED Code(s): 82663846 (5) Primary pancreatic adenocarcinoma Current Visit: Yes Status: Acute Priority: High Code(s): C25.9 - MALIGNANT NEOPLASM OF PANCREAS, UNSPECIFIED SNOMED Code(s): 8276670155485 Plan: 1. Continue symptomatic and supportive care 2. Daily CBC, transfuse for hemoglobin less than 7 3. Continue regular diet 4. Protonix 40 mg IV twice a day 5. No further coffee-ground emesis. Hemoglobin stable. We'll defer endoscopic evaluation as patient has had many endoscopic evaluations in the recent past. 6. Please collect C. diff 7. If C. diff is negative can treat diarrhea with Questran and/or Imodium Thank You for this consultation, we will continue to follow. Dr. Eren Burns I agree with the dictator's note, documented as a scribe by Jennifer Sykes.
[2023-01-29] MEDS: IPRATROPIUM-ALBUTEROL 3 ML NEB INHALATION PRN ×3 (11:13→18:25)
[2023-01-29] MEDS ORDERED: FILGRASTIM-SNDZ 300 MCG/0.5 ML SYRINGE SQ ONE (12:00)
[2023-01-29] MEDS: SODIUM CHLORIDE 0.9% 1,000 ML IV SCH ×3 (13:31→23:33)
--- NOTE | 2023-01-29 16:35 | P.PN ---
Subjective Progress Note Date: 01/29/23 Luz Marina Mallory, is a 57-year-old female with known history of pancreatic cancer, who presented to [facility] emergency room with a chief complaint of nausea vomiting and diarrhea. Patient was at the infusion center today she had an episode of coffee ground material vomiting and was sent to emergency room. She was evaluated in the emergency room vital examination on presentation reve aled vital signs temp 98.5, heart rate 72, respiratory 16, blood pressure 120/74 to 94% Laboratory data reveals globin 9.8, potassium low at 2.8, creatinine 0.47 bun 13 white blood cell 5.8 Patient was admitted to medical floor for further evaluation and treatment Past medical history is significant for pancreatic cancer in which she is receiving chemotherapy. Additional medical history includes asthma, COPD, GERD, osteoarthritis anxiety and depression. On review of systems patient's alert and oriented 3. Patient reports nausea vomiting with poor appetite. Patient denies chest pain or shortness of breath On 01/27/2023 patient is alert and oriented 3 currently resting comfortably in bed. Patient still complaining of occasional nausea has not been able to eat. Discussed case with GI services tentative plans for possible EGD tomorrow. Repeat labs have been ordered. 2-D echo has been ordered. Cardiology, oncology and GI services following. On 01/28/2023 patient's alert and oriented 3 patient received 1 unit PRBCs hemoglobin improving to 8.3 this a.m. Discussed case with GI services may not do EGD per GI due to recent EGDs completed at [facility]. Current vital signs temp 98.5, heart rate 82, respiratory rate 15, blood pressure 109/69 with a pulse ox of 95%. Oncology, GI and cardiology services are following patient denies chest pain or shortness breath. Patient denies nausea vomiting or diarrhea. Patient denies any urinary burning or frequency On 01/29/2023 patient was seen and examined on the medical floor she is alert and oriented 3 in no apparent distress there is no fever or chills no headache or dizziness no chest pain no shortness of breath no cough she is still complaining of nausea no vomiting no abdominal pain, she is still complaining of diarrhea and no urinary symptoms. White blood count today is down to 1.3 hemoglobin down to 7.2 platelet count 55 potassium 3.4 Objective - Vital Signs Vital signs: Vital Signs Temp 98.5 F 01/29/23 07:18 Pulse 81 01/29/23 07:18 Resp 18 01/29/23 07:18 BP 75/43 01/29/23 07:18 Pulse Ox 98 01/29/23 07:18 FiO2 Intake & Output 01/28/23 01/29/23 01/29/23 18:59 06:59 18:59 Intake Total 240 Output Total 740 340 Balance -500 -340 Intake: Oral 240 Output: Urine 400 Stool 340 340 Other: Voiding Method Toilet # Voids 3 1 1 # Bowel Movements 3 1 - Exam In general patient is alert and oriented x 3 in no distress HEENT head normocephalic and atraumatic Neck is supple no JVD no goiter no lymphadenopathy no carotid bruit Chest examination is clear to auscultation no crackles no wheezing Cardiac exam reveals regular heart sounds S1 and S2 no gallops no murmurs Abdomen is soft nontender no organomegaly with normal bowel sounds Extremity exam reveals no edema no cyanosis or clubbing Neurological examination reveals no gross focal deficits - Labs CBC & Chem 7: 01/29/23 06:40 01/29/23 06:40 Labs: Abnormal Lab Results - Last 24 Hours (Table) 01/28/23 01/29/23 01/29/23 Range/Units 06:28 06:40 06:40 WBC 1.3 L* (3.8-10.6) k/uL RBC 2.30 L (3.80-5.40) m/uL Hgb 7.2 L (11.4-16.0) gm/dL Hct 21.1 L (34.0-46.0) % RDW 16.5 H (11.5-15.5) % Plt Count 55 L 55 L (150-450) k/uL Potassium 3.4 L (3.5-5.1) mmol/L Chloride 111 H (98-107) mmol/L Carbon Dioxide 20 L (22-30) mmol/L BUN 5 L (7-17) mg/dL Calcium 8.0 L (8.4-10.2) mg/dL Microbiology - Last 24 Hours (Table) 01/26/23 21:01 Blood Culture - Preliminary Blood 01/26/23 21:16 Blood Culture - Preliminary Blood Assessment and Plan Assessment: 1. Nausea vomiting with coffee-ground emesis 2. Chest pain 3. Dehydration with electrolyte imbalance 4. Hypokalemia 5. Recent diagnosis of pancreatic cancer with metastatic disease currently receiving chemotherapy 6. History of osteoarthritis 7. History of obstructive sleep apnea DVT prophylaxis SCDs. GI prophylaxis Protonix GI, cardiology and oncology service is consulted Tentative plans for EGD on 01/28/2023 2-D echo ordered per cardiology Repeat labs ordered
--- NOTE | 2023-01-29 19:53 | P.PN ---
Subjective Progress Note Date: 01/29/23 At today's visit patient is resting comfortably in bed. Patient reports persisting diarrhea. Reports 1 episode of diarrhea this morning. C. difficile sample has yet to be collected. Denies nausea vomiting. Patient reports stools over the last 3 days have been darker in color. Also reporting decrease in appetite. Will start patient on Ensure with meals. Patient is hypotensive today. Midodrine was started. Objective - Vital Signs Vital signs: Vital Signs Temp 99.6 F 01/29/23 13:29 Pulse 76 01/29/23 18:39 Resp 16 01/29/23 13:29 BP 101/64 01/29/23 13:29 Pulse Ox 98 01/29/23 13:29 FiO2 Intake & Output 01/29/23 01/29/23 01/30/23 06:59 18:59 06:59 Output Total 340 Balance -340 Output: Stool 340 Other: Voiding Method Toilet # Voids 1 1 # Bowel Movements 1 1 - Constitutional General appearance: Present: no acute distress - EENT Eyes: Present: anicteric sclerae ENT: Present: hearing grossly normal - Respiratory Details: breathing is even and unlabored - Cardiovascular Details: skin warm and dry - Gastrointestinal General gastrointestinal: Present: soft. Absent: tenderness - Integumentary Integumentary: Present: pale. Absent: cyanotic - Musculoskeletal Musculoskeletal: Present: generalized weakness - Psychiatric Psychiatric: Present: A&O x's 3 - Labs CBC & Chem 7: 01/29/23 06:40 01/29/23 06:40 Labs: Abnormal Lab Results - Last 24 Hours (Table) 01/29/23 01/29/23 Range/Units 06:40 06:40 WBC 1.3 L* (3.8-10.6) k/uL RBC 2.30 L (3.80-5.40) m/uL Hgb 7.2 L (11.4-16.0) gm/dL Hct 21.1 L (34.0-46.0) % RDW 16.5 H (11.5-15.5) % Plt Count 55 L (150-450) k/uL Potassium 3.4 L (3.5-5.1) mmol/L Chloride 111 H (98-107) mmol/L Carbon Dioxide 20 L (22-30) mmol/L BUN 5 L (7-17) mg/dL Calcium 8.0 L (8.4-10.2) mg/dL Microbiology - Last 24 Hours (Table) 01/26/23 21:01 Blood Culture - Preliminary Blood 01/26/23 21:16 Blood Culture - Preliminary Blood Assessment and Plan (1) Hematemesis Current Visit: Yes Status: Acute Priority: High Code(s): K92.0 - HEMATEMESIS SNOMED Code(s): 6657190 (2) Chemotherapy induced diarrhea Current Visit: Yes Status: Acute Priority: High Code(s): K52.1 - TOXIC GASTROENTERITIS AND COLITIS; T45.1X5A - ADVERSE EFFECT OF ANTINEOPLASTIC AND IMMUNOSUP DRUGS, INIT SNOMED Code(s): 973744601 (3) Chemotherapy induced nausea and vomiting Current Visit: Yes Status: Acute Priority: High Code(s): R11.2 - NAUSEA WITH VOMITING, UNSPECIFIED; T45.1X5A - ADVERSE EFFECT OF ANTINEOPLASTIC AND IMMUNOSUP DRUGS, INIT SNOMED Code(s): 08145352 (4) Primary pancreatic adenocarcinoma Current Visit: Yes Status: Acute Priority: High Code(s): C25.9 - MALIGNANT NEOPLASM OF PANCREAS, UNSPECIFIED SNOMED Code(s): 4220413035243 Plan: Pancreatic adenocarcinoma -On 11/04 Dr. Murray reviewed with the pt that PET scan showed no evidence of metastatic disease. On initial evaluation at [facility] pt was deemed not resectable. Treatment intent, without resection, is not likely to be curable. She has been started on systemic therapy. Local radiation with concurrent low-dose chemotherapy can be considered as part of her regimen if she tolerates chemo- which she has not thus far-was another option, intent would be definitive treatment. Alternatively, if she has a good response to systemic chemotherapy, then she can be reevaluated for resectability. -Completed cycle 5 on 01/20 with G-CSF. Regimen has been dose reduced twice due to adverse side effects. Chemotherapy treatment will be on hold until f/u with Dr. Murray, last cycle may need to be held. -Will schedule clinic f/u to reassess upon discharge N,V,D, Hematemesis -2/2 chemo -Anti-emetic regimen adjusted. N/V improved. Diarrhea improved but persisting, continues on questran. C-diff pending -Hematemesis resolved. GI following. No plan for EGD at this time, as hematemesis resolved. -Continue anti-emetics and hydration Chemo induced pancytopenia -Secondary to chemotherapy superimposed by inflammation and hematemesis. -Hemoglobin 7.2 today, WBC 1.3, Platelets 55,000 -Received 4 doses zarxio after last cycle. S/p 1 dose granix yesterday, will add additional dose today. Continue to monitor WBCs, with goal of ANC >1000 -Anemia workup revealed no nutritional deficiencies -May continue anticoagulation as long as platelets remain >50,000, if discontinued would recommend SCDs for DVT prophylaxis -Will continue to monitor. Please transfuse for hemoglobin less than 7 or if symptomatic
[2023-01-29] MEDS: OLANZapine ODT 5 MG TAB PO SCH (21:06)
[2023-01-29] MEDS: lamoTRIgine 25 MG TAB PO SCH (21:06)
[2023-01-29] MEDS: ATORVASTATIN 10 MG TAB PO SCH (21:06)
[2023-01-29] MEDS: HYDROmorphone 0.5 MG/0.5 ML SYRINGE IVP PRN (21:15)
[2023-01-29] MEDS ORDERED: Potassium Replacement Protocol 1 EACH MISC MISCELLANE PRN (22:10)
[2023-01-30] MEDS: POTASSIUM CHLORIDE ER 20 MEQ TAB.ER PO SCH ×3 (00:49→20:08)
[2023-01-30] MEDS: HYDROmorphone 0.5 MG/0.5 ML SYRINGE IVP PRN ×2 (03:27→09:54)
[2023-01-30 05:41] LABS: Anisocytosis Slight; HCT 21.9 % (34.0-46.0); HGB 7.1 gm/dL (11.4-16.0); MCH 29.9 pg (25.0-35.0); MCHC 32.6 g/dL (31.0-37.0); MCV 91.8 fL (80.0-100.0); Mean Platelet Volume 9.4; Poikilocytosis Slight; RBC 2.39 m/uL (3.80-5.40); RDW 17.8 % (11.5-15.5); WBC 1.8 k/uL (3.8-10.6)
[2023-01-30 06:36] LABS: Platelet Count 66 k/uL (150-450)
[2023-01-30] MEDS: SODIUM CHLORIDE 0.9% 1,000 ML IV SCH ×3 (06:38→22:21)
--- NOTE | 2023-01-30 07:28 | P.PN ---
Subjective Progress Note Date: 01/30/23 Principal diagnosis: Coffee-ground emesis, anemia This is a pleasant 57-year-old female who was sent over from [facility] for nausea, vomiting and diarrhea. Patient has pancreatic cancer and was receiving chemotherapy. Started chemo in October. States she's been having increased nausea and vomiting. She started having coffee-ground emesis that began on Thursday or Thursday. Upon walking into the patient's room she started vomiting large amounts of coffee-ground liquid emesis. She does have a history of hiatal hernia and Reina's esophagus. Last documented EGD and colonoscopy report available was from October [address] Bolden which reported hiatal corby ia and short segment of Reina's esophagus. Colonoscopy found mild sigmoid diverticulosis. However patient does state that she's had more recent EGD done however she is not sure when but believes it was done at [facility] with Dr. Burns. She denies any anticoagulation other than 81 mg aspirin daily. Denies any regular NSAID use. She was admitted with a hemoglobin of 9.4 potassium was 2.8 and replaced with a repeat potassium of 5.0 this morning.Patient denies any abdominal pain, does have nausea and emesis. She was given a regular diet for breakfast this morning and did eat a cup of fruit and took and liquids throughout the night and this morning. Admitting labs WBC 5.8 hemoglobin 9.4 hematocrit 28 platelet count 114,000 sodium 141 potassium 2.8 BUN 13 creatinine 0.4 total bilirubin 0.7 AST 51 ALT 30 alkaline phosphatase 107 lipase 59 01/28/2023 Patient seen and examined today as a follow-up. States she does not feel well she has chest pain and frequent diarrhea. She denies any nausea or vomiting and no further coffee-ground emesis. She denies any abdominal pain. She is status post 1 unit of blood transfusion with a repeat hemoglobin today of 8.3. Iron 81 TIBC 293 saturation 27 ferritin 668 vitamin B12 2895 folate 34.3 01/29/2023 Seen and examined today as a follow-up. She states abdominal pain improved, no chest pain, diarrhea is improving. Started on Questran. C. diff however not collected. She continues to deny any melena. No further vomiting. Today's labs WBC 1.3 hemoglobin 7.2 hematocrit 21 platelet count 55,000 sodium 138 potassium 3.4 BUN 5 creatinine 0.5 01/30/2023 Patient is seen and examined today as a follow-up. She still has some mild nausea but no vomiting since yesterday morning which she states was a very small amount and no coffee-ground emesis mostly bile. Diarrhea is also improving. She is afebrile. Hemoglobin 7.1. Denies any blood or black stool. Objective - Vital Signs Vital signs: Vital Signs Temp 98.8 F 01/30/23 01:07 Pulse 81 01/30/23 01:07 Resp 15 01/30/23 01:07 BP 100/68 01/30/23 01:07 Pulse Ox 99 01/30/23 01:07 FiO2 Intake & Output 01/29/23 01/30/23 01/30/23 18:59 06:59 18:59 Intake Total 100 Balance 100 Intake: Oral 100 Other: Voiding Method Toilet # Voids 1 3 # Bowel Movements 1 1 - Exam General appearance: The patient is alert, oriented, appears in no acute distress. HET: Head is normocephalic and atraumatic. Conjunctiva pink. Sclera anicteric. Neck: Supple without lymphadenopathy. Abdomen: Soft, nontender, nondistended with bowel sounds. No guarding or rigidity. Extremities: Normal skin color and turgor. No pedal edema Skin: No rashes, no jaundice Neurological: No focal deficits. Alert and oriented. - Labs CBC & Chem 7: 01/30/23 04:42 01/29/23 20:36 Labs: Abnormal Lab Results - Last 24 Hours (Table) 01/29/23 01/29/23 01/29/23 Range/Units 06:40 06:40 20:36 WBC 1.3 L* (3.8-10.6) k/uL RBC 2.30 L (3.80-5.40) m/uL Hgb 7.2 L (11.4-16.0) gm/dL Hct 21.1 L (34.0-46.0) % RDW 16.5 H (11.5-15.5) % Plt Count 55 L (150-450) k/uL Potassium 3.4 L 2.9 L (3.5-5.1) mmol/L Chloride 111 H (98-107) mmol/L Carbon Dioxide 20 L (22-30) mmol/L BUN 5 L (7-17) mg/dL Calcium 8.0 L (8.4-10.2) mg/dL 01/30/23 Range/Units 04:42 WBC 1.8 L (3.8-10.6) k/uL RBC 2.39 L (3.80-5.40) m/uL Hgb 7.1 L (11.4-16.0) gm/dL Hct 21.9 L (34.0-46.0) % RDW 17.8 H (11.5-15.5) % Plt Count (150-450) k/uL Potassium (3.5-5.1) mmol/L Chloride (98-107) mmol/L Carbon Dioxide (22-30) mmol/L BUN (7-17) mg/dL Calcium (8.4-10.2) mg/dL Microbiology - Last 24 Hours (Table) 01/26/23 21:01 Blood Culture - Preliminary Blood 01/26/23 21:16 Blood Culture - Preliminary Blood Assessment and Plan (1) GI bleed Narrative/Plan: 57-year-old with a history of pancreatic cancer receiving chemotherapy sent over to the hospital for nausea vomiting and diarrhea. However patient's emesis has been coffee-ground in color for last 2-3 days duration. She is known to have a hemoglobin of 9.3 on admission and 1 she was evaluated today had approximately 200 mm of liquid coffee-ground emesis. She had a drop of her hemoglobin to 7.2. BUN also noted to be elevated today at 20. Suspect upper GI bleed possible peptic ulcer disease, gastritis, esophagitis, AVM or other possible etiology. However patient has had multiple recent EGDs in the past with known esophagitis and Reina's esophagus. Likely coffee-ground emesis related to esophagitis from severe nausea and vomiting from chemotherapy. No plans on endoscopic evaluation at this time as coffee-ground emesis has resolved. Patient is not having any melena. Current Visit: No Status: Acute Code(s): K92.2 - GASTROINTESTINAL HEMORRHAGE, UNSPECIFIED SNOMED Code(s): 19450693 (2) Hypokalemia Current Visit: No Status: Acute Priority: High Code(s): E87.6 - HYPOKALEMIA SNOMED Code(s): 25308971 (3) Nausea and vomiting Current Visit: Yes Status: Acute Code(s): R11.2 - NAUSEA WITH VOMITING, UNSPECIFIED SNOMED Code(s): 34077452 (4) Diarrhea Narrative/Plan: C. diff stool ordered, diarrhea improving. Current Visit: No Status: Acute Priority: High Code(s): R19.7 - DIARRHEA, UNSPECIFIED SNOMED Code(s): 32484261 (5) Primary pancreatic adenocarcinoma Current Visit: Yes Status: Acute Priority: High Code(s): C25.9 - MALIGNANT NEOPLASM OF PANCREAS, UNSPECIFIED SNOMED Code(s): 1526919459250 (6) Pancytopenia Narrative/Plan: Secondary to chemotherapy Current Visit: Yes Status: Acute Code(s): D61.818 - OTHER PANCYTOPENIA SNOMED Code(s): 685453518 Plan: 1. Continue symptomatic and supportive care 2. Diet as tolerated 3. Protonix 40 mg IV twice a day 4. No further coffee-ground emesis. We'll defer endoscopic evaluation as patient has had many endoscopic evaluations in the recent past. 5. Continue with recommendations from oncology 6. Patient is cleared from gastroenterology Thank you for this consultation, we will sign off at this time. Dr. Eren Burns I agree with the dictator's note, documented as a scribe by Jennifer Sykes.
[2023-01-30] MEDS: SYMBICORT 80-4.5 MCG INHALER INHALATION SCH ×2 (07:46→19:45)
[2023-01-30] MEDS: IPRATROPIUM-ALBUTEROL 3 ML NEB INHALATION PRN ×3 (07:46→15:03)
[2023-01-30] MEDS: IPRATROPIUM 0.5 MG/2.5 ML NEBU INHALATION SCH ×4 (07:46→19:45)
[2023-01-30] MEDS: CHOLESTYRAMINE (WITH SUGAR) 4 GM PACKET PO SCH ×2 (08:54→20:09)
[2023-01-30] MEDS: DULoxetine HCL 30 MG CAPSULE.DR PO SCH ×2 (08:55→20:09)
[2023-01-30] MEDS: FAMOTIDINE 20 MG TAB PO SCH (08:55)
[2023-01-30] MEDS: MIDODRINE 5 MG TAB PO SCH ×3 (08:55→18:06)
[2023-01-30] MEDS: FERROUS SULFATE 325 MG TAB PO SCH (08:55)
[2023-01-30] MEDS: PANTOPRAZOLE 40 MG/10 ML VIAL IVP SCH ×2 (08:55→20:08)
[2023-01-30] MEDS: METOPROLOL TARTRATE 25 MG TAB PO SCH ×3 (08:56→21:26)
[2023-01-30] MEDS: CYANOCOBALAMIN 500 MCG TAB PO SCH (08:56)
[2023-01-30] MEDS: ASPIRIN 81 MG PO SCH (08:56)
[2023-01-30 09:13] LABS: ALT 29 U/L (8-44); AST 19 U/L (13-35); Albumin 2.6 g/dL (3.8-4.9); Albumin/Globulin Ratio 1.62 Ratio (1.60-3.17); Alkaline Phosphatase 74 U/L (41-126); BUN/Creat Ratio <7.00 Ratio (12.00-20.00); Blood Urea Nitrogen <3.5 mg/dL (9.0-27.0); Calcium 7.9 mg/dL (8.7-10.3); Carbon Dioxide 17.9 mmol/L (21.6-31.8); Chloride 109 mmol/L (96-109); Globulin 1.6 g/dL (1.6-3.3); Glucose 134 mg/dL (70-110); Potassium 4.4 mmol/L (3.5-5.5); Sodium 136 mmol/L (135-145); Total Bilirubin 0.3 mg/dL (0.3-1.2); Total Protein 4.2 g/dL (6.2-8.2)
--- NOTE | 2023-01-30 10:21 | P.PN ---
Subjective Progress Note Date: 01/30/23 Luz Marina Mallory, is a 57-year-old female with known history of pancreatic cancer, who presented to [facility] emergency room with a chief complaint of nausea vomiting and diarrhea. Patient was at the infusion center today she had an episode of coffee ground material vomiting and was sent to emergency room. She was evaluated in the emergency room vital examination on presentation reve aled vital signs temp 98.5, heart rate 72, respiratory 16, blood pressure 120/74 to 94% Laboratory data reveals globin 9.8, potassium low at 2.8, creatinine 0.47 bun 13 white blood cell 5.8 Patient was admitted to medical floor for further evaluation and treatment Past medical history is significant for pancreatic cancer in which she is receiving chemotherapy. Additional medical history includes asthma, COPD, GERD, osteoarthritis anxiety and depression. On review of systems patient's alert and oriented 3. Patient reports nausea vomiting with poor appetite. Patient denies chest pain or shortness of breath On 01/27/2023 patient is alert and oriented 3 currently resting comfortably in bed. Patient still complaining of occasional nausea has not been able to eat. Discussed case with GI services tentative plans for possible EGD tomorrow. Repeat labs have been ordered. 2-D echo has been ordered. Cardiology, oncology and GI services following. On 01/28/2023 patient's alert and oriented 3 patient received 1 unit PRBCs hemoglobin improving to 8.3 this a.m. Discussed case with GI services may not do EGD per GI due to recent EGDs completed at [facility]. Current vital signs temp 98.5, heart rate 82, respiratory rate 15, blood pressure 109/69 with a pulse ox of 95%. Oncology, GI and cardiology services are following patient denies chest pain or shortness breath. Patient denies nausea vomiting or diarrhea. Patient denies any urinary burning or frequency On 01/29/2023 patient was seen and examined on the medical floor she is alert and oriented 3 in no apparent distress there is no fever or chills no headache or dizziness no chest pain no shortness of breath no cough she is still complaining of nausea no vomiting no abdominal pain, she is still complaining of diarrhea and no urinary symptoms. White blood count today is down to 1.3 hemoglobin down to 7.2 platelet count 55 potassium 3.4 on 01/30/2023 patient's alert and oriented 3. Patient still having some diarrhea and generalized pain. Per GI services no plans for endoscopic study at this time. WBC 1.8, hemoglobin 7.1. Potassium improving to 4.4. Patient denies shortness of breath. Patient denies nausea or vomiting Objective - Vital Signs Vital signs: Vital Signs Temp 98.7 F 01/30/23 07:15 Pulse 68 01/30/23 07:59 Resp 16 01/30/23 07:15 BP 107/72 01/30/23 07:15 Pulse Ox 99 01/30/23 07:15 FiO2 Intake & Output 01/29/23 01/30/23 01/30/23 18:59 06:59 18:59 Intake Total 100 Balance 100 Intake: Oral 100 Other: Voiding Method Toilet # Voids 1 3 # Bowel Movements 1 1 - Exam In general patient is alert and oriented x 3 in no distress HEENT head normocephalic and atraumatic Neck is supple no JVD no goiter no lymphadenopathy no carotid bruit Chest examination is clear to auscultation no crackles no wheezing Cardiac exam reveals regular heart sounds S1 and S2 no gallops no murmurs Abdomen is soft nontender no organomegaly with normal bowel sounds Extremity exam reveals no edema no cyanosis or clubbing Neurological examination reveals no gross focal deficits - Labs CBC & Chem 7: 01/30/23 04:42 01/30/23 04:42 Labs: Abnormal Lab Results - Last 24 Hours (Table) 01/29/23 01/30/23 01/30/23 Range/Units 20:36 04:42 04:42 WBC 1.8 L (3.8-10.6) k/uL RBC 2.39 L (3.80-5.40) m/uL Hgb 7.1 L (11.4-16.0) gm/dL Hct 21.9 L (34.0-46.0) % RDW 17.8 H (11.5-15.5) % Potassium 2.9 L (3.5-5.1) mmol/L Carbon Dioxide 17.9 L (21.6-31.8) mmol/L BUN <3.5 L (9.0-27.0) mg/dL Creatinine 0.5 L (0.6-1.5) mg/dL BUN/Creatinine Ratio <7.00 L (12.00-20.00) Ratio Glucose 134 H (70-110) mg/dL Calcium 7.9 L (8.7-10.3) mg/dL Total Protein 4.2 L (6.2-8.2) g/dL Albumin 2.6 L (3.8-4.9) g/dL Microbiology - Last 24 Hours (Table) 01/26/23 21:01 Blood Culture - Preliminary Blood 01/26/23 21:16 Blood Culture - Preliminary Blood Assessment and Plan Assessment: 1. Nausea vomiting with coffee-ground emesis 2. Chest pain 3. Dehydration with electrolyte imbalance 4. Hypokalemia 5. Recent diagnosis of pancreatic cancer with metastatic disease currently receiving chemotherapy 6. History of osteoarthritis 7. History of obstructive sleep apnea DVT prophylaxis SCDs. GI prophylaxis Protonix GI, cardiology and oncology service is consulted Tentative plans for EGD on 01/28/2023 2-D echo ordered per cardiology Repeat labs ordered
--- NOTE | 2023-01-30 10:45 | CDI ---
Documentation Clarification Form Date: 01/30/2023 10:43:48 AM From: Jennifer Rubalcava RN, CCDS Admit Date: 01/26/2023 05:55:00 PM Patient Name: Luz Marina Mallory Visit Number: [id number] Discharge Date: ATTENTION: The Clinical Documentation Specialists (CDI) and [facility] Coding Staff appreciate your assistance in clarifying documentation. Please respond to the clarification below the line at the bottom and electronically sign. The CDI & [facility] Coding staff will review the response and follow-up if needed. Please note: Queries are made part of the Legal Health Record. If you have any questions, please contact the author of this message via ITS. Dr. Michael Leal Your patient has a hemoglobin/hematocrit level of 9.4/28.2, in the lab report on 01/26 and 01/27. Please clarify if there is an additional diagnosis and/or clinical significance related to these lab values. History/Risk Factors: Pancreatic CA, COPD, GERD/Reflux, problems with diarrhea and constipation, On Chemotherapy Clinical indicators: 57-year-old female presents to ED with chief complaint of coffee-ground emesis and diarrhea. She reports started vomiting large amounts of coffee-ground liquid emesis for last 2-3 day duration. 01/27 GI Consult: GI bleed possible peptic ulcer disease, gastritis, esophagitis, AVM or other possible etiology. 01/30 GI progress note: EGDs in the past with known esophagitis and Reina's esophagus. Likely coffee-ground emesis related to esophagitis from severe nausea and vomiting from chemotherapy. No plans on endoscopic evaluation at this time as coffee-ground emesis has resolved. Patient is not having any melena. 01/29 Oncology progress note: Hematemesis. Chemotherapy induced diarrhea. Chemotherapy induced nausea and vomiting. Chemo induced pancytopenia. Anemia workup revealed no nutritional deficiencies. 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
[2023-01-30 10:50] LABS: Neutrophils % (M) 22 %
[2023-01-30 10:52] LABS: Band Neutrophils % 4 %; Basophils # (M) 0.02 k/uL (0-0.2); Eosinophils # (M) 0.02 k/uL (0-0.7); Lymphocytes # (M) 0.95 k/uL (1.0-4.8); Monocytes # (M) 0.36 k/uL (0-1.0)
[2023-01-30 10:54] LABS: Metamyelocytes # (M) 0.02 k/uL (0); Metamyelocytes % 1 %; Nucleated Red Blood Cells 2 /100 WBC (0-0); Total Cells Counted 200
--- NOTE | 2023-01-30 11:14 | CDI ---
Documentation Clarification Form Date: 01/30/2023 10:55:56 AM From: Jennifer Rubalcava RN, CCDS Admit Date: 01/26/2023 05:55:00 PM Patient Name: Luz Marina Mallory Visit Number: [id number] Discharge Date: ATTENTION: The Clinical Documentation Specialists (CDI) and [facility] Coding Staff appreciate your assistance in clarifying documentation. Please respond to the clarification below the line at the bottom and electronically sign. The CDI & [facility] Coding staff will review the response and follow-up if needed. Please note: Queries are made part of the Legal Health Record. If you have any questions, please contact the author of this message via ITS. Dr. Michael Leal Nausea vomiting with coffee-ground emesis is documented in the H/P and subsequent progress note, and patient is noted to have recent diagnosis of pancreatic cancer currently receiving chemotherapy. Please clarify if there is a relationship between the nausea and vomiting and the chemotherapy. History/Risk Factors: Pancreatic CA, COPD, GERD/Reflux, problems with diarrhea and constipation, On Chemotherapy Clinical Indicators: 57-year-old female presents to ED with chief complaint of coffee-ground emesis and diarrhea. She reports started vomiting large amounts of coffee-ground liquid emesis for last 2-3 day duration. 01/27 GI Consult: GI bleed possible peptic ulcer disease, gastritis, esophagitis, AVM or other possible etiology. 01/29 Oncology progress note: Hematemesis. Chemotherapy induced diarrhea. Chemotherapy induced nausea and vomiting. Chemo induced pancytopenia. 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
--- NOTE | 2023-01-30 11:35 | P.PN ---
Subjective HISTORY OF PRESENT ILLNESS: This is a 57-year-old female with a past medical history significant for pancreatic cancer undergoing chemotherapy, hypertension, hyperlipidemia, depression, COPD, former nicotine dependence, and GERD. Patient follows in the office with Dr. Ware. We have been asked to see the patient in consultation for chest pain. Patient examined at the bedside. Patient is currently admitted to the hospital secondary to coffee-ground emesis. She has been followed by GI and also oncology as she has a history of pancreatic cancer. The patient states she has been having diarrhea for the past 2-3 days at home. She also reports nausea with episodes of vomiting. She reports decreased oral intake. She reports right lower quadrant abdominal pain this morning. She also reports having some left-sided chest discomfort which started after she had episodes of vomiting. She does have epigastric tenderness at the time of examination. * No EKG available at the time of this dictation * Laboratory data: Hemoglobin 9.4. Potassium 2.8. Repeat 5.0. * Current home cardiac medications include aspirin 81 mg daily * Most recent echocardiogram obtained in October 2018 revealed ejection fraction 60% * Cardiac catheterization history: April 2017 at [facility] revealing a right dominant system with spasm of the RCA with cannulation. 35% smooth narrowing in the proximal portion. No other significant disease. Filling pressure is normal. 01/28/2023 Patient examined this morning at the bedside. Patient currently denies shortness of breath. She denies chest pain or pressure. Vital signs are stable. Echocardiogram completed revealing ejection fraction 55-60% with mild TR. 01/30/2023 Cardiology was asked to reevaluate patient for chest pain. Patient examined this morning at the bedside. Patient states her pain is the same discomfort she has been having since coming to the hospital. She states the pain is worse with deep inspiration and also worse with coughing. She denies any radiation of the pain. She denies any shortness of breath. EKG obtained with no signs of acute ischemia PHYSICAL EXAM: VITAL SIGNS: Reviewed. GENERAL: Well-developed in no acute distress. HEENT: Head is normocephalic. Pupils are equal, round. Sclerae anicteric. Mucous membranes of the mouth are moist. Neck supple. No JVD or thyromegaly LUNGS: Respirations even and unlabored. Lungs essentially clear to auscultation bilaterally. HEART: Regular rate and rhythm. S1 and S2 heard. ABDOMEN: Soft. Nondistended. Nontender. EXTREMITIES: Normal range of motion. No clubbing or cyanosis. Peripheral pulses intact. No lower extremity edema NEUROLOGIC: Awake and alert. Oriented x 3. ASSESSMENT: Nausea and vomiting with coffee-ground emesis Anemia Diarrhea Hypokalemia Chest pain, atypical, appears to be GI in etiology secondary to vomiting Nonobstructive CAD Hypertension Hyperlipidemia COPD Depression Former nicotine dependence GERD PLAN: An acute coronary event has been ruled out The patient is anemic with hemoglobin of 7.1. She may benefit from RBC transfusion. Continue current cardiac medications No further inpatient recommendations from a cardiac standpoint We will sign off. Please reconsult if needed. Nurse practitioner note has been reviewed by physician. Signing provider agrees with the documented findings, assessment, and plan of care. Objective - Vital Signs Vital signs: Vital Signs Temp 98.7 F 01/30/23 07:15 Pulse 68 01/30/23 07:59 Resp 16 01/30/23 07:15 BP 107/72 01/30/23 07:15 Pulse Ox 99 01/30/23 07:15 FiO2 Intake & Output 01/29/23 01/30/23 01/30/23 18:59 06:59 18:59 Intake Total 100 Balance 100 Intake: Oral 100 Other: Voiding Method Toilet # Voids 1 3 # Bowel Movements 1 1 - Labs CBC & Chem 7: 01/30/23 04:42 01/30/23 04:42 Labs: Abnormal Lab Results - Last 24 Hours (Table) 01/29/23 01/30/23 01/30/23 Range/Units 20:36 04:42 04:42 WBC 1.8 L (3.8-10.6) k/uL RBC 2.39 L (3.80-5.40) m/uL Hgb 7.1 L (11.4-16.0) gm/dL Hct 21.9 L (34.0-46.0) % RDW 17.8 H (11.5-15.5) % Potassium 2.9 L (3.5-5.1) mmol/L Carbon Dioxide 17.9 L (21.6-31.8) mmol/L BUN <3.5 L (9.0-27.0) mg/dL Creatinine 0.5 L (0.6-1.5) mg/dL BUN/Creatinine Ratio <7.00 L (12.00-20.00) Ratio Glucose 134 H (70-110) mg/dL Calcium 7.9 L (8.7-10.3) mg/dL Total Protein 4.2 L (6.2-8.2) g/dL Albumin 2.6 L (3.8-4.9) g/dL Microbiology - Last 24 Hours (Table) 01/26/23 21:01 Blood Culture - Preliminary Blood 01/26/23 21:16 Blood Culture - Preliminary Blood
[2023-01-30 12:23] LABS: Polychromasia Present
[2023-01-30] MEDS ORDERED: ACETAMINOPHEN TAB 325 MG TAB PO PRN (13:48)
--- NOTE | 2023-01-30 14:47 | P.PN ---
Subjective Progress Note Date: 01/30/23 At today's visit patient is resting comfortably in bed. Patient reports persisting diarrhea but has showed improvement since admission. Reports 1 episode of diarrhea this morning. C. difficile sample has yet to be collected. Denies nausea vomiting, hematemesis resolved. Reports stools remain to blackish in color. Also reporting decrease in appetite but is tolerating oral intake. BP improved since midodrine was started. Cough persisting, and reports chest pain with coughing. Per nursing, cardiology is aware. Will obtain CXR Objective - Vital Signs Vital signs: Vital Signs Temp 98.8 F 01/30/23 12:15 Pulse 71 01/30/23 12:15 Resp 16 01/30/23 12:15 BP 90/61 01/30/23 12:15 Pulse Ox 98 01/30/23 12:15 FiO2 Intake & Output 01/29/23 01/30/23 01/30/23 18:59 06:59 18:59 Intake Total 100 Balance 100 Intake: Oral 100 Other: Voiding Method Toilet # Voids 1 3 1 # Bowel Movements 1 1 1 - Constitutional General appearance: Present: average body habitus, no acute distress - EENT Eyes: Present: EOMI ENT: Present: hearing grossly normal - Respiratory Details: breathing even and unlabored - Cardiovascular Details: skin warm and dry - Gastrointestinal General gastrointestinal: Present: soft. Absent: tenderness - Integumentary Integumentary: Present: pale - Musculoskeletal Musculoskeletal: Present: generalized weakness - Psychiatric Psychiatric: Present: A&O x's 3 - Labs CBC & Chem 7: 01/30/23 04:42 01/30/23 04:42 Labs: Abnormal Lab Results - Last 24 Hours (Table) 01/29/23 01/30/23 01/30/23 Range/Units 20:36 04:42 04:42 WBC 1.8 L (3.8-10.6) k/uL RBC 2.39 L (3.80-5.40) m/uL Hgb 7.1 L (11.4-16.0) gm/dL Hct 21.9 L (34.0-46.0) % RDW 17.8 H (11.5-15.5) % Plt Count 66 L (150-450) k/uL Neutrophils # (Manual) 0.40 L* (1.3-7.7) k/uL Lymphocytes # (Manual) 0.95 L (1.0-4.8) k/uL Metamyelocytes # (Man) 0.02 H (0) k/uL Nucleated RBCs 2 H (0-0) /100 WBC Potassium 2.9 L (3.5-5.1) mmol/L Carbon Dioxide 17.9 L (21.6-31.8) mmol/L BUN <3.5 L (9.0-27.0) mg/dL Creatinine 0.5 L (0.6-1.5) mg/dL BUN/Creatinine Ratio <7.00 L (12.00-20.00) Ratio Glucose 134 H (70-110) mg/dL Calcium 7.9 L (8.7-10.3) mg/dL Total Protein 4.2 L (6.2-8.2) g/dL Albumin 2.6 L (3.8-4.9) g/dL Microbiology - Last 24 Hours (Table) 01/26/23 21:01 Blood Culture - Preliminary Blood 01/26/23 21:16 Blood Culture - Preliminary Blood Assessment and Plan (1) Hematemesis Current Visit: Yes Status: Acute Priority: High Code(s): K92.0 - HEMATEMESIS SNOMED Code(s): 3998238 (2) Chemotherapy induced diarrhea Current Visit: Yes Status: Acute Priority: High Code(s): K52.1 - TOXIC GASTROENTERITIS AND COLITIS; T45.1X5A - ADVERSE EFFECT OF ANTINEOPLASTIC AND IMMUNOSUP DRUGS, INIT SNOMED Code(s): 140663265 (3) Chemotherapy induced nausea and vomiting Current Visit: Yes Status: Acute Priority: High Code(s): R11.2 - NAUSEA WITH VOMITING, UNSPECIFIED; T45.1X5A - ADVERSE EFFECT OF ANTINEOPLASTIC AND IMMUNOSUP DRUGS, INIT SNOMED Code(s): 55661940 (4) Primary pancreatic adenocarcinoma Current Visit: Yes Status: Acute Priority: High Code(s): C25.9 - MALIGNANT NEOPLASM OF PANCREAS, UNSPECIFIED SNOMED Code(s): 5902140143971 Plan: Pancreatic adenocarcinoma -On 11/04 Dr. Murray reviewed with the pt that PET scan showed no evidence of metastatic disease. On initial evaluation at [facility] pt was deemed not resectable. Treatment intent, without resection, is not likely to be curable. She has been started on systemic therapy. Local radiation with concurrent low-dose chemotherapy can be considered as part of her regimen if she tolerates chemo- which she has not thus far-was another option, intent would be definitive treatment. Alternatively, if she has a good response to systemic chemotherapy, then she can be reevaluated for resectability. -Completed last cycle on 01/20 with G-CSF. Regimen has been dose reduced twice due to adverse side effects. Chemotherapy treatment will be on hold until f/u with Dr. Murray -Will schedule clinic f/u to reassess upon discharge and to discuss possible change in regimen N,V,D, Hematemesis -2/2 chemo -Anti-emetic regimen adjusted. N/V improved. Diarrhea improved but persisting, continues on questran. C-diff pending -Hematemesis resolved. GI following. No plan for EGD at this time, as hematemesis resolved. Reporting persisting black stools -Continue anti-emetics and hydration Chemo induced pancytopenia -Secondary to chemotherapy superimposed by inflammation and hematemesis. -Hemoglobin 7.2 today, WBC 1.3, Platelets 55,000 -Received 4 doses zarxio after last cycle. Granix daily has been added. Continue to monitor WBCs, with goal of ANC >1000 -Anemia workup revealed no nutritional deficiencies -May continue anticoagulation as long as platelets remain >50,000, if discontinued would recommend SCDs for DVT prophylaxis -Will continue to monitor. Please transfuse for hemoglobin less than 7 or if symptomatic
--- NOTE | 2023-01-30 15:12 | XR ---
EXAMINATION TYPE: XR chest 2V DATE OF EXAM: 01/30/2023 COMPARISON: 11/28/2022 HISTORY: 57-year-old female cough and chest pain TECHNIQUE: Frontal and lateral views FINDINGS: The heart is normal size. Aorta and pulmonary vasculature within normal limits. There is patchy right midlung opacity which is new from prior exam. No pleural effusion. Radiotracer just one injection po rt. Catheter tip at the upper SVC level. IMPRESSION: Patchy right midlung opacity that could represent atelectasis or pneumonia.
[2023-01-30] MEDS: FILGRASTIM-SNDZ 480 MCG/0.8 ML SYRINGE SQ SCH (15:58)
[2023-01-30] MEDS: ATORVASTATIN 10 MG TAB PO SCH (20:08)
[2023-01-30] MEDS: lamoTRIgine 25 MG TAB PO SCH (20:08)
[2023-01-30] MEDS: OLANZapine ODT 5 MG TAB PO SCH (20:09)
[2023-01-31] MEDS: SODIUM CHLORIDE 0.9% 1,000 ML IV SCH ×3 (06:10→20:38)
[2023-01-31] MEDS: SYMBICORT 80-4.5 MCG INHALER INHALATION SCH ×2 (08:23→21:18)
[2023-01-31] MEDS: IPRATROPIUM 0.5 MG/2.5 ML NEBU INHALATION SCH ×4 (08:24→21:19)
[2023-01-31] MEDS: IPRATROPIUM-ALBUTEROL 3 ML NEB INHALATION PRN ×2 (08:24→21:18)
[2023-01-31] MEDS: CHOLESTYRAMINE (WITH SUGAR) 4 GM PACKET PO SCH ×2 (09:38→20:26)
[2023-01-31] MEDS: CYANOCOBALAMIN 500 MCG TAB PO SCH (09:38)
[2023-01-31] MEDS: FERROUS SULFATE 325 MG TAB PO SCH (09:38)
[2023-01-31] MEDS: DULoxetine HCL 30 MG CAPSULE.DR PO SCH ×2 (09:38→20:32)
[2023-01-31] MEDS: METOPROLOL TARTRATE 25 MG TAB PO SCH ×3 (09:38→20:32)
[2023-01-31] MEDS: FAMOTIDINE 20 MG TAB PO SCH (09:39)
[2023-01-31] MEDS: PANTOPRAZOLE 40 MG/10 ML VIAL IVP SCH ×2 (09:39→20:33)
[2023-01-31] MEDS: POTASSIUM CHLORIDE ER 20 MEQ TAB.ER PO SCH ×2 (09:39→20:32)
[2023-01-31] MEDS: ASPIRIN 81 MG PO SCH (09:39)
[2023-01-31] MEDS: MIDODRINE 5 MG TAB PO SCH ×3 (09:40→17:48)
--- NOTE | 2023-01-31 10:13 | P.PN ---
Subjective Progress Note Date: 01/31/23 Luz Marina Mallory, is a 57-year-old female with known history of pancreatic cancer, who presented to [facility] emergency room with a chief complaint of nausea vomiting and diarrhea. Patient was at the infusion center today she had an episode of coffee ground material vomiting and was sent to emergency room. She was evaluated in the emergency room vital examination on presentation reve aled vital signs temp 98.5, heart rate 72, respiratory 16, blood pressure 120/74 to 94% Laboratory data reveals globin 9.8, potassium low at 2.8, creatinine 0.47 bun 13 white blood cell 5.8 Patient was admitted to medical floor for further evaluation and treatment Past medical history is significant for pancreatic cancer in which she is receiving chemotherapy. Additional medical history includes asthma, COPD, GERD, osteoarthritis anxiety and depression. On review of systems patient's alert and oriented 3. Patient reports nausea vomiting with poor appetite. Patient denies chest pain or shortness of breath On 01/27/2023 patient is alert and oriented 3 currently resting comfortably in bed. Patient still complaining of occasional nausea has not been able to eat. Discussed case with GI services tentative plans for possible EGD tomorrow. Repeat labs have been ordered. 2-D echo has been ordered. Cardiology, oncology and GI services following. On 01/28/2023 patient's alert and oriented 3 patient received 1 unit PRBCs hemoglobin improving to 8.3 this a.m. Discussed case with GI services may not do EGD per GI due to recent EGDs completed at [facility]. Current vital signs temp 98.5, heart rate 82, respiratory rate 15, blood pressure 109/69 with a pulse ox of 95%. Oncology, GI and cardiology services are following patient denies chest pain or shortness breath. Patient denies nausea vomiting or diarrhea. Patient denies any urinary burning or frequency On 01/29/2023 patient was seen and examined on the medical floor she is alert and oriented 3 in no apparent distress there is no fever or chills no headache or dizziness no chest pain no shortness of breath no cough she is still complaining of nausea no vomiting no abdominal pain, she is still complaining of diarrhea and no urinary symptoms. White blood count today is down to 1.3 hemoglobin down to 7.2 platelet count 55 potassium 3.4 on 01/30/2023 patient's alert and oriented 3. Patient still having some diarrhea and generalized pain. Per GI services no plans for endoscopic study at this time. WBC 1.8, hemoglobin 7.1. Potassium improving to 4.4. Patient denies shortness of breath. Patient denies nausea or vomiting On 01/31/2023 patient's alert and oriented 3. Patient complaining of some g eneralized weakness. Will consult PT OT. Lab work currently pending. Current vital signs temp 98.5, pulse rate 78, respiratory rate 15, blood pressure 100/67 with a pulse ox 98% on room air Objective - Vital Signs Vital signs: Vital Signs Temp 98.5 F 01/31/23 07:25 Pulse 88 01/31/23 08:36 Resp 15 01/31/23 07:25 BP 100/67 01/31/23 07:25 Pulse Ox 98 01/31/23 07:25 FiO2 Intake & Output 01/30/23 01/31/23 01/31/23 18:59 06:59 18:59 Other: Voiding Method Toilet # Voids 1 1 # Bowel Movements 1 1 - Exam In general patient is alert and oriented x 3 in no distress HEENT head normocephalic and atraumatic Neck is supple no JVD no goiter no lymphadenopathy no carotid bruit Chest examination is clear to auscultation no crackles no wheezing Cardiac exam reveals regular heart sounds S1 and S2 no gallops no murmurs Abdomen is soft nontender no organomegaly with normal bowel sounds Extremity exam reveals no edema no cyanosis or clubbing Neurological examination reveals no gross focal deficits - Labs CBC & Chem 7: 01/30/23 04:42 01/30/23 04:42 Labs: Abnormal Lab Results - Last 24 Hours (Table) 01/30/23 01/30/23 Range/Units 04:42 04:42 Plt Count 66 L (150-450) k/uL Neutrophils # (Manual) 0.40 L* (1.3-7.7) k/uL Lymphocytes # (Manual) 0.95 L (1.0-4.8) k/uL Metamyelocytes # (Man) 0.02 H (0) k/uL Nucleated RBCs 2 H (0-0) /100 WBC Carbon Dioxide 17.9 L (21.6-31.8) mmol/L BUN <3.5 L (9.0-27.0) mg/dL Creatinine 0.5 L (0.6-1.5) mg/dL BUN/Creatinine Ratio <7.00 L (12.00-20.00) Ratio Glucose 134 H (70-110) mg/dL Calcium 7.9 L (8.7-10.3) mg/dL Total Protein 4.2 L (6.2-8.2) g/dL Albumin 2.6 L (3.8-4.9) g/dL Microbiology - Last 24 Hours (Table) 01/26/23 21:01 Blood Culture - Preliminary Blood 01/26/23 21:16 Blood Culture - Preliminary Blood Assessment and Plan Assessment: 1. Nausea vomiting with coffee-ground emesis 2. Chest pain 3. Dehydration with electrolyte imbalance 4. Hypokalemia 5. Recent diagnosis of pancreatic cancer with metastatic disease currently receiving chemotherapy 6. History of osteoarthritis 7. History of obstructive sleep apnea DVT prophylaxis SCDs. GI prophylaxis Protonix GI, cardiology and oncology service is consulted
[2023-01-31 12:19] LABS: ALT 19 U/L (4-34); AST 16 U/L (14-36); African American GFR (CKD) >90 (>60 ml/min/1.73 sqM); Albumin 2.1 g/dL (3.5-5.0); Albumin/Globulin Ratio 1.1; Alkaline Phosphatase 76 U/L (38-126); Anion Gap 10 mmol/L; Anisocytosis Slight; Blood Urea Nitrogen 4 mg/dL (7-17); Calcium 7.6 mg/dL (8.4-10.2); Carbon Dioxide 18 mmol/L (22-30); Chloride 105 mmol/L (98-107); Glucose 109 mg/dL (74-99); HCT 22.3 % (34.0-46.0); HGB 7.4 gm/dL (11.4-16.0); Hypochromasia Slight; MCH 30.9 pg (25.0-35.0); MCV 93.7 fL (80.0-100.0); Macrocytosis Slight; Mean Platelet Volume 10.2; Non-African American GFR(CKD) >90 (>60 ml/min/1.73 sqM); Poikilocytosis Slight; Potassium 3.5 mmol/L (3.5-5.1); RBC 2.38 m/uL (3.80-5.40); RDW 18.6 % (11.5-15.5); Sodium 133 mmol/L (137-145); Total Bilirubin 0.3 mg/dL (0.2-1.3); Total Protein 4.1 g/dL (6.3-8.2); WBC 4.5 k/uL (3.8-10.6)
[2023-01-31 12:24] LABS: Platelet Count 82 k/uL (150-450)
[2023-01-31 15:37] LABS: Band Neutrophils % 6 %; Eosinophils # (M) 0.09 k/uL (0-0.7); Lymphocytes # (M) 0.95 k/uL (1.0-4.8); Metamyelocytes # (M) 0.09 k/uL (0); Metamyelocytes % 2 %; Monocytes # (M) 0.41 k/uL (0-1.0); Neutrophils % (M) 61 %; Nucleated Red Blood Cells 1 /100 WBC (0-0); Total Cells Counted 200
[2023-01-31] MEDS: FILGRASTIM-SNDZ 480 MCG/0.8 ML SYRINGE SQ SCH (17:48)
[2023-01-31] MEDS: lamoTRIgine 25 MG TAB PO SCH (20:32)
[2023-01-31] MEDS: ATORVASTATIN 10 MG TAB PO SCH (20:33)
[2023-01-31] MEDS: OLANZapine ODT 5 MG TAB PO SCH (21:16)
[2023-02-01] MEDS: SODIUM CHLORIDE 0.9% 1,000 ML IV SCH ×3 (04:27→20:28)
[2023-02-01] MEDS: SYMBICORT 80-4.5 MCG INHALER INHALATION SCH ×2 (07:43→20:09)
[2023-02-01] MEDS: IPRATROPIUM 0.5 MG/2.5 ML NEBU INHALATION SCH ×4 (07:44→20:09)
[2023-02-01] MEDS: ASPIRIN 81 MG PO SCH (08:41)
[2023-02-01] MEDS: CYANOCOBALAMIN 500 MCG TAB PO SCH (08:41)
[2023-02-01] MEDS: DULoxetine HCL 30 MG CAPSULE.DR PO SCH ×2 (08:42→20:28)
[2023-02-01] MEDS: POTASSIUM CHLORIDE ER 20 MEQ TAB.ER PO SCH ×3 (08:42→20:28)
[2023-02-01] MEDS: FERROUS SULFATE 325 MG TAB PO SCH (08:42)
[2023-02-01] MEDS: METOPROLOL TARTRATE 25 MG TAB PO SCH ×3 (08:42→20:28)
[2023-02-01] MEDS: CHOLESTYRAMINE (WITH SUGAR) 4 GM PACKET PO SCH ×2 (08:42→20:26)
[2023-02-01] MEDS: PANTOPRAZOLE 40 MG/10 ML VIAL IVP SCH ×2 (08:42→20:29)
[2023-02-01] MEDS: FAMOTIDINE 20 MG TAB PO SCH (08:42)
[2023-02-01] MEDS: MIDODRINE 5 MG TAB PO SCH ×3 (08:43→16:29)
[2023-02-01] MEDS ORDERED: LOPERAMIDE 2 MG CAP PO PRN (08:49)
[2023-02-01] MEDS ORDERED: ERGOCALCIFEROL 1,250 MCG (50,000 IU) CAPSULE PO SCH (09:00)
[2023-02-01 09:34] LABS: ALT 15 U/L (8-44); AST 14 U/L (13-35); Albumin 2.3 g/dL (3.8-4.9); Albumin/Globulin Ratio 1.44 Ratio (1.60-3.17); Alkaline Phosphatase 74 U/L (41-126); BUN/Creat Ratio <5.83 Ratio (12.00-20.00); Blood Urea Nitrogen <3.5 mg/dL (9.0-27.0); Calcium 7.8 mg/dL (8.7-10.3); Carbon Dioxide 18.4 mmol/L (21.6-31.8); Chloride 111 mmol/L (96-109); Globulin 1.6 g/dL (1.6-3.3); Glucose 86 mg/dL (70-110); Potassium 3.2 mmol/L (3.5-5.5); Sodium 140 mmol/L (135-145); Total Bilirubin 0.2 mg/dL (0.3-1.2); Total Protein 3.9 g/dL (6.2-8.2)
[2023-02-01 10:14] LABS: Basophils # (M) 0.15 X 10*3/uL (0.00-0.10); HCT 22.2 % (37.2-46.3); Immature Platelet Fraction 8.2 % (1.1-6.1); Lymphocytes # (M) 1.26 X 10*3/uL (0.90-5.00); MCH 30.2 pg (27.0-32.0); MCHC 31.5 g/dL (32.0-37.0); MCV 95.7 FL (80.0-97.0); Mean Platelet Volume 12.3 FL (9.5-12.2); Monocytes # (M) 0.74 X 10*3/uL (0.20-1.00); NRBC Per 100 WBC 0.11 X 10*3/uL (0.00-0.01); Neutrophils % (M) 60 %; Nucleated Red Blood Cells 4 /100 WBCS; Platelet Count 76 X 10*3/uL (140-440); Promyelocytes # (M) 0.15 k/uL (0); Promyelocytes % 2 %; RBC 2.32 X 10*6/uL (4.10-5.20); RDW 18.1 % (11.5-14.5); Toxic Granulation 2+; WBC 7.39 X 10*3/uL (4.50-10.00)
[2023-02-01 10:15] LABS: Eosinophils # (M) 0 X 10*3/uL (0.04-0.35); Metamyelocytes % 7 % (0-0); Myelocytes % 2 % (0-0); Neutrophils # (M) 4.43 X 10*3/uL (1.80-7.70)
[2023-02-01] MEDS ORDERED: Potassium Replacement Protocol 1 EACH MISC MISCELLANE PRN (10:55)
--- NOTE | 2023-02-01 11:53 | P.PN ---
Subjective Progress Note Date: 02/01/23 Luz Marina Mallory, is a 57-year-old female with known history of pancreatic cancer, who presented to [facility] emergency room with a chief complaint of nausea vomiting and diarrhea. Patient was at the infusion center today she had an episode of coffee ground material vomiting and was sent to emergency room. She was evaluated in the emergency room vital examination on presentation reve aled vital signs temp 98.5, heart rate 72, respiratory 16, blood pressure 120/74 to 94% Laboratory data reveals globin 9.8, potassium low at 2.8, creatinine 0.47 bun 13 white blood cell 5.8 Patient was admitted to medical floor for further evaluation and treatment Past medical history is significant for pancreatic cancer in which she is receiving chemotherapy. Additional medical history includes asthma, COPD, GERD, osteoarthritis anxiety and depression. On review of systems patient's alert and oriented 3. Patient reports nausea vomiting with poor appetite. Patient denies chest pain or shortness of breath On 01/27/2023 patient is alert and oriented 3 currently resting comfortably in bed. Patient still complaining of occasional nausea has not been able to eat. Discussed case with GI services tentative plans for possible EGD tomorrow. Repeat labs have been ordered. 2-D echo has been ordered. Cardiology, oncology and GI services following. On 01/28/2023 patient's alert and oriented 3 patient received 1 unit PRBCs hemoglobin improving to 8.3 this a.m. Discussed case with GI services may not do EGD per GI due to recent EGDs completed at [facility]. Current vital signs temp 98.5, heart rate 82, respiratory rate 15, blood pressure 109/69 with a pulse ox of 95%. Oncology, GI and cardiology services are following patient denies chest pain or shortness breath. Patient denies nausea vomiting or diarrhea. Patient denies any urinary burning or frequency On 01/29/2023 patient was seen and examined on the medical floor she is alert and oriented 3 in no apparent distress there is no fever or chills no headache or dizziness no chest pain no shortness of breath no cough she is still complaining of nausea no vomiting no abdominal pain, she is still complaining of diarrhea and no urinary symptoms. White blood count today is down to 1.3 hemoglobin down to 7.2 platelet count 55 potassium 3.4 on 01/30/2023 patient's alert and oriented 3. Patient still having some diarrhea and generalized pain. Per GI services no plans for endoscopic study at this time. WBC 1.8, hemoglobin 7.1. Potassium improving to 4.4. Patient denies shortness of breath. Patient denies nausea or vomiting On 01/31/2023 patient's alert and oriented 3. Patient complaining of some g eneralized weakness. Will consult PT OT. Lab work currently pending. Current vital signs temp 98.5, pulse rate 78, respiratory rate 15, blood pressure 100/67 with a pulse ox 98% on room air On 02/01/2023 patient was seen and examined on the medical floor she is alert and oriented 3 in no apparent distress, she is complaining of generalized weakness otherwise no specific complaints, hemoglobin is down to 7.0 today platelet count 76 potassium 3.2 hematology oncology following, will continue with current management recheck in a.m.. Objective - Vital Signs Vital signs: Vital Signs Temp 98.4 F 02/01/23 07:20 Pulse 79 02/01/23 07:56 Resp 16 02/01/23 07:20 BP 86/56 02/01/23 07:20 Pulse Ox 98 02/01/23 07:20 FiO2 Intake & Output 01/31/23 02/01/23 02/01/23 18:59 06:59 18:59 Intake Total 1660 Output Total 2 Balance 1660 -2 Intake: Intake, IV Titration 1660 Amount Sodium Chloride 0.9% 1, 1660 000 ml @ 130 mls/hr IV . [id number] [facility] Rx#:[id number] Output: Urine 2 Other: Voiding Method Toilet # Voids 1 # Bowel Movements 3 2 - Exam In general patient is alert and oriented x 3 in no distress HEENT head normocephalic and atraumatic Neck is supple no JVD no goiter no lymphadenopathy no carotid bruit Chest examination is clear to auscultation no crackles no wheezing Cardiac exam reveals regular heart sounds S1 and S2 no gallops no murmurs Abdomen is soft nontender no organomegaly with normal bowel sounds Extremity exam reveals no edema no cyanosis or clubbing Neurological examination reveals no gross focal deficits - Labs CBC & Chem 7: 02/01/23 06:02 02/01/23 06:02 Labs: Abnormal Lab Results - Last 24 Hours (Table) 01/31/23 01/31/23 02/01/23 Range/Units 11:37 11:37 06:02 RBC 2.38 L 2.32 L (3.80-5.40) m/uL Hgb 7.4 L 7.0 L (11.4-16.0) gm/dL Hct 22.3 L 22.2 L (34.0-46.0) % MCHC 31.5 L (32.0-37.0) g/dL RDW 18.6 H 18.1 H (11.5-15.5) % Plt Count 82 L 76 L (150-450) k/uL MPV 12.3 H (9.5-12.2) FL Lymphocytes # (Manual) 0.95 L (1.0-4.8) k/uL Eosinophils # (Manual) 0 L (0.04-0.35) X 10*3/uL Basophils # (Manual) 0.15 H (0.00-0.10) X 10*3/uL Metamyelocytes # (Man) 0.09 H (0) k/uL Nucleated RBCs 1 H (0-0) /100 WBC NRBC/100 WBC Diff 0.11 H (0.00-0.01) X 10*3/uL Toxic Granulation 2+ A Immature Plt Fraction 8.2 H (1.1-6.1) % Sodium 133 L (137-145) mmol/L Potassium (3.5-5.5) mmol/L Chloride (96-109) mmol/L Carbon Dioxide 18 L (22-30) mmol/L BUN 4 L (7-17) mg/dL Creatinine 0.41 L (0.52-1.04) mg/dL BUN/Creatinine Ratio (12.00-20.00) Ratio Glucose 109 H (74-99) mg/dL Calcium 7.6 L (8.4-10.2) mg/dL Total Bilirubin (0.3-1.2) mg/dL Total Protein 4.1 L (6.3-8.2) g/dL Albumin 2.1 L (3.5-5.0) g/dL Albumin/Globulin Ratio (1.60-3.17) Ratio 02/01/23 Range/Units 06:02 RBC (3.80-5.40) m/uL Hgb (11.4-16.0) gm/dL Hct (34.0-46.0) % MCHC (32.0-37.0) g/dL RDW (11.5-15.5) % Plt Count (150-450) k/uL MPV (9.5-12.2) FL Lymphocytes # (Manual) (1.0-4.8) k/uL Eosinophils # (Manual) (0.04-0.35) X 10*3/uL Basophils # (Manual) (0.00-0.10) X 10*3/uL Metamyelocytes # (Man) (0) k/uL Nucleated RBCs (0-0) /100 WBC NRBC/100 WBC Diff (0.00-0.01) X 10*3/uL Toxic Granulation Immature Plt Fraction (1.1-6.1) % Sodium (137-145) mmol/L Potassium 3.2 L (3.5-5.5) mmol/L Chloride 111 H (96-109) mmol/L Carbon Dioxide 18.4 L (22-30) mmol/L BUN <3.5 L (7-17) mg/dL Creatinine (0.52-1.04) mg/dL BUN/Creatinine Ratio <5.83 L (12.00-20.00) Ratio Glucose (74-99) mg/dL Calcium 7.8 L (8.4-10.2) mg/dL Total Bilirubin 0.2 L (0.3-1.2) mg/dL Total Protein 3.9 L (6.3-8.2) g/dL Albumin 2.3 L (3.5-5.0) g/dL Albumin/Globulin Ratio 1.44 L (1.60-3.17) Ratio Microbiology - Last 24 Hours (Table) 01/26/23 21:01 Blood Culture - Final Blood 01/26/23 21:16 Blood Culture - Final Blood Assessment and Plan Assessment: 1. Nausea vomiting with coffee-ground emesis 2. Chest pain 3. Dehydration with electrolyte imbalance 4. Hypokalemia 5. Recent diagnosis of pancreatic cancer with metastatic disease currently receiving chemotherapy 6. History of osteoarthritis 7. History of obstructive sleep apnea DVT prophylaxis SCDs. GI prophylaxis Protonix GI, cardiology and oncology service is consulted
[2023-02-01] MEDS: OLANZapine ODT 5 MG TAB PO SCH (20:26)
[2023-02-01] MEDS: lamoTRIgine 25 MG TAB PO SCH (20:27)
[2023-02-01] MEDS: ATORVASTATIN 10 MG TAB PO SCH (20:28)
[2023-02-01 21:57] VITALS: RESP 16
[2023-02-02] MEDS: SODIUM CHLORIDE 0.9% 1,000 ML IV SCH ×2 (03:59→13:02)
[2023-02-02] MEDS: IPRATROPIUM 0.5 MG/2.5 ML NEBU INHALATION SCH ×4 (08:16→18:55)
[2023-02-02] MEDS: SYMBICORT 80-4.5 MCG INHALER INHALATION SCH ×2 (08:16→18:55)
[2023-02-02] MEDS: PANTOPRAZOLE 40 MG/10 ML VIAL IVP SCH (09:48)
[2023-02-02] MEDS: FERROUS SULFATE 325 MG TAB PO SCH (09:48)
[2023-02-02] MEDS: MIDODRINE 5 MG TAB PO SCH ×4 (09:49→17:43)
[2023-02-02] MEDS: FAMOTIDINE 20 MG TAB PO SCH (09:49)
[2023-02-02] MEDS: CHOLESTYRAMINE (WITH SUGAR) 4 GM PACKET PO SCH (09:49)
[2023-02-02] MEDS: CYANOCOBALAMIN 500 MCG TAB PO SCH (09:49)
[2023-02-02] MEDS: ASPIRIN 81 MG PO SCH (09:49)
[2023-02-02] MEDS: DULoxetine HCL 30 MG CAPSULE.DR PO SCH (09:49)
[2023-02-02] MEDS: POTASSIUM CHLORIDE ER 20 MEQ TAB.ER PO SCH (09:49)
[2023-02-02] MEDS: METOPROLOL TARTRATE 25 MG TAB PO SCH ×2 (09:49→17:43)
[2023-02-02 11:07] LABS: ALT 17 U/L (8-44); AST 18 U/L (13-35); Albumin 2.5 g/dL (3.8-4.9); Albumin/Globulin Ratio 1.39 Ratio (1.60-3.17); Alkaline Phosphatase 103 U/L (41-126); BUN/Creat Ratio <7.00 Ratio (12.00-20.00); Blood Urea Nitrogen <3.5 mg/dL (9.0-27.0); Calcium 7.8 mg/dL (8.7-10.3); Carbon Dioxide 18.8 mmol/L (21.6-31.8); Chloride 112 mmol/L (96-109); Globulin 1.8 g/dL (1.6-3.3); Glucose 68 mg/dL (70-110); Potassium 3.5 mmol/L (3.5-5.5); Sodium 142 mmol/L (135-145); Total Bilirubin 0.2 mg/dL (0.3-1.2); Total Protein 4.3 g/dL (6.2-8.2)
[2023-02-02 12:21] LABS: Basophils # (M) 0 X 10*3/uL (0.00-0.10); Eosinophils # (M) 0 X 10*3/uL (0.04-0.35); HCT 26.6 % (37.2-46.3); HGB 8.3 g/dL (12.0-15.0); Lymphocytes # (M) 2.05 X 10*3/uL (0.90-5.00); MCH 30.2 pg (27.0-32.0); MCHC 31.2 g/dL (32.0-37.0); MCV 96.7 FL (80.0-97.0); Mean Platelet Volume 11.4 FL (9.5-12.2); Metamyelocytes % 2 % (0-0); Monocytes # (M) 0.58 X 10*3/uL (0.20-1.00); NRBC Per 100 WBC 0.24 X 10*3/uL (0.00-0.01); Neutrophils # (M) 11.69 X 10*3/uL (1.80-7.70); Neutrophils % (M) 80 %; Nucleated Red Blood Cells 4 /100 WBCS; Platelet Count 94 X 10*3/uL (140-440); RBC 2.75 X 10*6/uL (4.10-5.20); RBC Morphology Normal (Normal); RDW 18.5 % (11.5-14.5); WBC 14.61 X 10*3/uL (4.50-10.00)
[2023-02-02 13:34] VITALS: TEMP 99
[2023-02-02 15:16] VITALS: BMI 25.5
--- NOTE | 2023-02-02 16:36 | P.DS ---
Providers Date of admission: 01/26/23 17:55 Expected date of discharge: 02/02/23 Attending physician: Michael Leal Consults: 01/26/23 18:17 Consult Physician Stat Consulting Provider: Kali Murray Consult Reason/Comments: hypokalemia/coffee ground emesis Do you want consulting provider notified?: Yes, Notify in am Consult Physician Stat Consulting Provider: Michelle Burns Consult Reason/Comments: coffee ground emesis Do you want consulting provider notified?: Yes, Notify in am Primary care physician: Michael Leal [facility] Course: Diagnosis on discharge: 1. Nausea vomiting with coffee-ground emesis 2. Chest pain 3. Dehydration with electrolyte imbalance 4. Hypokalemia 5. Recent diagnosis of pancreatic cancer with metastatic disease currently receiving chemotherapy 6. History of osteoarthritis 7. History of obstructive sleep apnea Hospital course: Luz Marina Mallory, is a 57-year-old female with known history of pancreatic cancer, who presented to [facility] emergency room with a chief complaint of nausea vomiting and diarrhea. Patient was at the infusion center today she had an episode of coffee ground material vomiting and was sent to emergency room. She was evaluated in the emergency room vital examination on presentation revealed vital signs temp 98.5, heart rate 72, respiratory 16, blood pressure 120/74 to 94% Laboratory data reveals globin 9.8, potassium low at 2.8, creatinine 0.47 bun 13 white blood cell 5.8 Patient was admitted to medical floor for further evaluation and treatment Past medical history is significant for pancreatic cancer in which she is receiving chemotherapy. Additional medical history includes asthma, COPD, GERD, osteoarthritis anxiety and depression. On review of systems patient's alert and oriented 3. Patient reports nausea vomiting with poor appetite. Patient denies chest pain or shortness of breath On 01/27/2023 patient is alert and oriented 3 currently resting comfortably in bed. Patient still complaining of occasional nausea has not been able to eat. Discussed case with GI services tentative plans for possible EGD tomorrow. Repeat labs have been ordered. 2-D echo has been ordered. Cardiology, oncology and GI services following. On 01/28/2023 patient's alert and oriented 3 patient received 1 unit PRBCs h emoglobin improving to 8.3 this a.m. Discussed case with GI services may not do EGD per GI due to recent EGDs completed at [facility]. Current vital signs temp 98.5, heart rate 82, respiratory rate 15, blood pressure 109/69 with a pulse ox of 95%. Oncology, GI and cardiology services are following patient denies chest pain or shortness breath. Patient denies nausea vomiting or diarrhea. Patient denies any urinary burning or frequency On 01/29/2023 patient was seen and examined on the medical floor she is alert and oriented 3 in no apparent distress there is no fever or chills no headache or dizziness no chest pain no shortness of breath no cough she is still complaining of nausea no vomiting no abdominal pain, she is still complaining of diarrhea and no urinary symptoms. White blood count today is down to 1.3 hemoglobin down to 7.2 platelet count 55 potassium 3.4 on 01/30/2023 patient's alert and oriented 3. Patient still having some diarrhea and generalized pain. Per GI services no plans for endoscopic study at this time. WBC 1.8, hemoglobin 7.1. Potassium improving to 4.4. Patient denies shortness of breath. Patient denies nausea or vomiting On 01/31/2023 patient's alert and oriented 3. Patient complaining of some generalized weakness. Will consult PT OT. Lab work currently pending. Current vital signs temp 98.5, pulse rate 78, respiratory rate 15, blood pressure 100/67 with a pulse ox 98% on room air On 02/01/2023 patient was seen and examined on the medical floor she is alert and oriented 3 in no apparent distress, she is complaining of generalized weakness otherwise no specific complaints, hemoglobin is down to 7.0 today platelet count 76 potassium 3.2 hematology oncology following, will continue with current management recheck in a.m.. On 02/02/2023 patient was seen and examined on the medical floor she is alert and oriented 3 in no apparent distress there is no fever or chills no headache or dizziness no chest pain no shortness of breath no cough no nausea or vomiting no abdominal pain she is still having diarrhea, and no urinary symptoms hemoglobin is up to 8.3. Patient was cleared by oncology for discharge. She will be discharged to home today she will follow-up with Dr. Murray as outpatient Patient Condition at Discharge: Stable Plan - Discharge Summary Discharge Rx Participant: No New Discharge Prescriptions: New Loperamide [Imodium] 2 mg PO QID PRN 30 Days #120 cap PRN Reason: Diarrhea OLANZapine ODT [ZyPREXA Zydis] 2.5 mg PO HS 30 Days #30 tab Continue Ferrous Sulfate [Iron] 325 mg PO DAILY calcitrioL [Calcitriol] 0.25 mcg PO DAILY Aspirin EC [Ecotrin Low Dose] 81 mg PO DAILY Midodrine HCl 5 mg PO TID Metoprolol Tartrate [Lopressor] 25 mg PO BID Cholestyramine (with Sugar) [Cholestyramine Powder] 4 gm PO BID Famotidine [Pepcid] 40 mg PO DAILY LORazepam [Ativan] 0.5 mg PO Q8HR PRN PRN Reason: Nausea Budesonide [Pulmicort] 0.5 mg INHALATION RT-BID DULoxetine HCL [Cymbalta] 30 mg PO BID Albuterol Inhaler [Ventolin Hfa Inhaler] 1 - 2 puff INHALATION RT-Q6H PRN PRN Reason: Shortness Of Breath Potassium Chloride ER [K-Dur 20] 20 meq PO BID Fluticasone/Umeclidin/Vilanter [Trelegy Ellipta 100-62.5-25] 1 puff INHALATION RT-DAILY lamoTRIgine [LaMICtal] 75 mg PO HS Ondansetron [Zofran] 4 mg PO DAILY PRN PRN Reason: Nausea Rosuvastatin Calcium 5 mg PO HS Ipratropium-Albuterol Nebulize [Duoneb 0.5 mg-3 mg/3 ml Soln] 3 ml INHALATION RT-Q6H PRN PRN Reason: Shortness Of Breath Aprepitant [Aprepitant Tri-Pack 125 mg (1 cap) + 80 mg (2 caps)] See Taper PO DIRECTED Cyanocobalamin (Vitamin B-12) [Vitamin B-12] 1,000 mcg PO DAILY Ergocalciferol (Vitamin D2) [Drisdol (50,000 Iu)] 1,250 mcg PO ROGEL Discontinued Pantoprazole Sodium [Protonix] 40 mg PO DAILY Discharge Medication List Albuterol Inhaler [Ventolin Hfa Inhaler] 1 - 2 puff INHALATION RT-Q6H PRN 11/03/22 [History] Aspirin EC [Ecotrin Low Dose] 81 mg PO DAILY 11/03/22 [History] DULoxetine HCL [Cymbalta] 30 mg PO BID 11/03/22 [History] Ferrous Sulfate [Iron] 325 mg PO DAILY 11/03/22 [History] Fluticasone/Umeclidin/Vilanter [Trelegy Ellipta 100-62.5-25] 1 puff INHALATION RT-DAILY 11/03/22 [History] Metoprolol Tartrate [Lopressor] 25 mg PO BID 11/03/22 [History] Midodrine HCl 5 mg PO TID 11/03/22 [History] Potassium Chloride ER [K-Dur 20] 20 meq PO BID 11/03/22 [History] calcitrioL [Calcitriol] 0.25 mcg PO DAILY 11/03/22 [History] Budesonide [Pulmicort] 0.5 mg INHALATION RT-BID 11/28/22 [History] Cholestyramine (with Sugar) [Cholestyramine Powder] 4 gm PO BID 11/28/22 [History] Famotidine [Pepcid] 40 mg PO DAILY 11/28/22 [History] Ipratropium-Albuterol Nebulize [Duoneb 0.5 mg-3 mg/3 ml Soln] 3 ml INHALATION RT-Q6H PRN 11/28/22 [History] LORazepam [Ativan] 0.5 mg PO Q8HR PRN 11/28/22 [History] Ondansetron [Zofran] 4 mg PO DAILY PRN 11/28/22 [History] Rosuvastatin Calcium 5 mg PO HS 11/28/22 [History] lamoTRIgine [LaMICtal] 75 mg PO HS 11/28/22 [History] Aprepitant [Aprepitant Tri-Pack 125 mg (1 cap) + 80 mg (2 caps)] See Taper PO DIRECTED 01/26/23 [History] Cyanocobalamin (Vitamin B-12) [Vitamin B-12] 1,000 mcg PO DAILY 01/26/23 [History] Ergocalciferol (Vitamin D2) [Drisdol (50,000 Iu)] 1,250 mcg PO ROGEL 01/26/23 [History] Loperamide [Imodium] 2 mg PO QID PRN 30 Days #120 cap 02/02/23 [Rx] OLANZapine ODT [ZyPREXA Zydis] 2.5 mg PO HS 30 Days #30 tab 02/02/23 [Rx] Follow up Appointment(s)/Referral(s): Kali Murray [STAFF PHYSICIAN] - 1 Week (The office will call you with a time and date.) Michael Leal MD [Primary Care Provider] - 1-2 days (The office is closed please call and make follow up appointment.)
[2023-02-02 17:51] VITALS: BP 127/87; PULSE 110
--- NOTE | 2023-02-02 21:05 | P.PN ---
Subjective Progress Note Date: 02/02/23 Principal diagnosis: hematemesis, pancreatic adenocarcinoma In f/u pt denies any further hematemesis, bleeding vomiting. She reports diarrhea persists and stool is a green liquid. No other acute physical c/o. Objective - Vital Signs Vital signs: Vital Signs Temp 99 F 02/02/23 13:02 Pulse 86 02/02/23 13:02 Resp 16 02/02/23 13:02 BP 134/83 02/02/23 13:02 Pulse Ox 95 02/02/23 13:02 FiO2 Intake & Output 02/01/23 02/02/23 02/02/23 18:59 06:59 18:59 Intake Total 1560 Balance 1560 Intake: Intake, IV Titration 1560 Amount Sodium Chloride 0.9% 1, 1560 000 ml @ 130 mls/hr IV . Q7H42M [facility] Rx#:[id number] Other: Voiding Method Toilet Toilet Toilet # Voids 2 3 # Bowel Movements 1 - Constitutional General appearance: Present: average body habitus, cooperative, no acute distress - EENT Eyes: Present: anicteric sclerae, EOMI ENT: Present: hearing grossly normal - Respiratory Respiratory: bilateral: CTA - Cardiovascular Rhythm: regular Heart sounds: normal: S1, S2 - Peripheral edema leg Peripheral Edema: bilateral: None - Gastrointestinal General gastrointestinal: Present: normal bowel sounds, soft, tenderness. Absent: absent bowel sounds, decreased bowel sounds, distended, hepatomegaly, hy peractive bowel sounds, organomegaly, rigid, scaphoid, splenomegaly, umbilical hernia, ventral hernia - Integumentary Integumentary: Present: pale - Neurologic Neurologic: Present: CNII-XII intact - Musculoskeletal Musculoskeletal: Present: strength equal bilaterally - Psychiatric Psychiatric: Present: A&O x's 3, appropriate affect, intact judgment & insight - Labs CBC & Chem 7: 02/02/23 05:46 02/02/23 05:46 Labs: Abnormal Lab Results - Last 24 Hours (Table) 02/02/23 02/02/23 Range/Units 05:46 05:46 WBC 14.61 H (4.50-10.00) X 10*3/uL RBC 2.75 L (4.10-5.20) X 10*6/uL Hgb 8.3 L (12.0-15.0) g/dL Hct 26.6 L (37.2-46.3) % MCHC 31.2 L (32.0-37.0) g/dL RDW 18.5 H (11.5-14.5) % Plt Count 94 L (140-440) X 10*3/uL Eosinophils # (Manual) 0 L (0.04-0.35) X 10*3/uL NRBC/100 WBC Diff 0.24 H (0.00-0.01) X 10*3/uL Chloride 112 H (96-109) mmol/L Carbon Dioxide 18.8 L (21.6-31.8) mmol/L BUN <3.5 L (9.0-27.0) mg/dL Creatinine 0.5 L (0.6-1.5) mg/dL BUN/Creatinine Ratio <7.00 L (12.00-20.00) Ratio Glucose 68 L (70-110) mg/dL Calcium 7.8 L (8.7-10.3) mg/dL Total Bilirubin 0.2 L (0.3-1.2) mg/dL Total Protein 4.3 L (6.2-8.2) g/dL Albumin 2.5 L (3.8-4.9) g/dL Albumin/Globulin Ratio 1.39 L (1.60-3.17) Ratio Assessment and Plan (1) Chemotherapy induced nausea and vomiting Status: Acute Priority: High Code(s): R11.2 - NAUSEA WITH VOMITING, U NSPECIFIED; T45.1X5A - ADVERSE EFFECT OF ANTINEOPLASTIC AND IMMUNOSUP DRUGS, INIT SNOMED Code(s): 73115292 (2) Diarrhea Status: Acute Priority: High Code(s): R19.7 - DIARRHEA, UNSPECIFIED SNOMED Code(s): 63549624 (3) Primary pancreatic adenocarcinoma Status: Acute Priority: High Code(s): C25.9 - MALIGNANT NEOPLASM OF PANCREAS, UNSPECIFIED SNOMED Code(s): 2349039545941 (4) Antineoplastic chemotherapy induced pancytopenia Status: Acute Code(s): D61.810 - ANTINEOPLASTIC CHEMOTHERAPY INDUCED PANCYTOPENIA; T45.1X5A - ADVERSE EFFECT OF ANTINEOPLASTIC AND IMMUNOSUP DRUGS, INIT SNOMED Code(s): 413596345437788 Plan: Pancreatic adenocarcinoma -No evidence of metastatic disease at initial diagnosis. On initial evaluation at [facility] she was deemed not resectable. Treatment thus far has been with the intent to try and shrink malignancy and then have Surgery re-evaluate. Pending f/u scan as she missed the one previously scheduled at [facility] with pancreas protocol. Without resection, her disease is not likely to be cured. In that case local radiation with concurrent chemotherapy could be considered as attempt to treat as well and again, see if she could be resected. -Completed last cycle on 01/20 with G-CSF. Treatment has been dose reduced twice due to adverse side effects. She required additional GCSF while inpt -Chemotherapy treatment will be on hold until repeat scan and f/u with Dr. Trevor Sanchez V, Hematemesis -Resolved -2/2 chemo. Supportive medications adjusted. Will need to keep pt on a strict regimen -Hematemesis resolved. GI saw pt, no plan for endoscopy at this time, as hematemesis resolved. Diarrhea -Diarrhea improved but persists per pt, continues on questran. C-diff testing cancelled, microbiology was all negative Chemo induced pancytopenia -Hemoglobin 8.3 today, WBC 14.6, Platelets 94,000-improving, WBC elevated 2/2 GCSF -Received 4 doses GCSF after last chemo and 3 additional doses while inpt, WBC 14.6, ANC 11,690. -Anemia workup revealed no nutritional deficiencies
== END 2023-02-02 19:06 | disposition home or self-care (01) | DRG 393 ==
LOC: EC 13:56 → OBSVTOIN 17:55 → 5NMEDONC 17:55
PROVIDERS: ADMIT Internal Medicine; ATTEND Internal Medicine
PROC: 30243N1 Transfusion of Nonautologous Red Blood Cells into Central Vein, Percutaneous Approach (ICD-10-PCS; principal; 2023-01-27)
DX: K52.1 Toxic gastroenteritis and colitis (principal); D61.810 Antineoplastic chemotherapy induced pancytopenia; C25.0 Malignant neoplasm of head of pancreas; I95.9 Hypotension, unspecified; E86.0 Dehydration; E87.6 Hypokalemia; E78.5 Hyperlipidemia, unspecified; G47.33 Obstructive sleep apnea (adult) (pediatric); T45.1X5A Adverse effect of antineoplastic and immunosuppressive drugs, initial encounter; J44.89 Other specified chronic obstructive pulmonary disease; M19.90 Unspecified osteoarthritis, unspecified site; K57.30 Diverticulosis of large intestine without perforation or abscess without bleeding; K44.9 Diaphragmatic hernia without obstruction or gangrene; K22.70 Barrett's esophagus without dysplasia; K21.00 Gastro-esophageal reflux disease with esophagitis, without bleeding; I10 Essential (primary) hypertension; F10.11 Alcohol abuse, in remission; F81.9 Developmental disorder of scholastic skills, unspecified; F32.A Depression, unspecified; F41.9 Anxiety disorder, unspecified; Z79.82 Long term (current) use of aspirin; Z79.51 Long term (current) use of inhaled steroids; Z79.899 Other long term (current) drug therapy; Z87.891 Personal history of nicotine dependence
CPT/HCPCS: 36415; 71046; 80048; 80053; 81001; 82607; 82728; 82746; 83540; 83550; 83605; 83690; 83921; 84132; 84484; 85025; 85027; 86850; 86900; 86901; 86920; 87040; 87636; 93005; 93306; 94640; 96365; 96366; 96375; 99285

== ENCOUNTER 2023-03-03 10:58 | Emergency (ER) | payer MEDICARE, OTHER ==
[2023-03-03] MEDS ORDERED: ACETAMINOPHEN TAB 500 MG TAB PO STA (11:15)
--- NOTE | 2023-03-03 11:15 | ED ---
General Adult HPI - General Chief complaint: Abdominal Pain Stated complaint: Abd pain Time Seen by Provider: 03/03/23 11:07 Source: patient Mode of arrival: ambulatory Limitations: no limitations - History of Present Illness Initial comments: Dictation was produced using [employer] dictation software. please excuse any grammatical, word or spelling errors. Chief Complaint: 57-year-old female presents to the emergency department for abd ominal pain History of Present Illness:57 -year-old female with history of nonoperable pancreatic cancer gets chemotherapy biweekly. States that for the last 2 or 3 days she's been having right lower quadrant pain. States that this pain is new. Denies any fever. She does have poor appetite. Still passing gas having bowel movements. No diarrhea. The ROS documented in this emergency department record has been reviewed and confirmed by me. Those systems with pertinent positive or negative responses have been documented in the HPI. All other systems are other negative and/or noncontributory. - Related Data Home Medications Medication Instructions Recorded Confirmed Albuterol Inhaler [Ventolin Hfa 1 - 2 puff INHALATION RT-Q6H PRN 11/03/22 03/03/23 Inhaler] Aspirin EC [Ecotrin Low Dose] 81 mg PO DAILY 11/03/22 03/03/23 DULoxetine HCL [Cymbalta] 30 mg PO BID 11/03/22 03/03/23 Ferrous Sulfate [Iron] 325 mg PO DAILY 11/03/22 03/03/23 Fluticasone/Umeclidin/Vilanter 1 puff INHALATION RT-DAILY 11/03/22 03/03/23 [Trelehalle Ellipta 100-62.5-25] Metoprolol Tartrate [Lopressor] 25 mg PO BID 11/03/22 03/03/23 Midodrine HCl 5 mg PO TID 11/03/22 03/03/23 Potassium Chloride ER [K-Dur 20] 20 meq PO BID 11/03/22 03/03/23 calcitrioL [Calcitriol] 0.25 mcg PO DAILY 11/03/22 03/03/23 Budesonide [Pulmicort] 0.5 mg INHALATION RT-BID 11/28/22 03/03/23 Cholestyramine (with Sugar) 4 gm PO BID 11/28/22 03/03/23 [Cholestyramine Powder] Famotidine [Pepcid] 40 mg PO DAILY 11/28/22 03/03/23 Ipratropium-Albuterol Nebulize 3 ml INHALATION RT-Q6H PRN 11/28/22 03/03/23 [Duoneb 0.5 mg-3 mg/3 ml Soln] LORazepam [Ativan] 0.5 mg PO Q8HR PRN 11/28/22 03/03/23 Ondansetron [Zofran] 4 mg PO DAILY PRN 11/28/22 03/03/23 Rosuvastatin Calcium 5 mg PO HS 11/28/22 03/03/23 lamoTRIgine [LaMICtal] 75 mg PO HS 11/28/22 03/03/23 Cyanocobalamin (Vitamin B-12) 1,000 mcg PO DAILY 01/26/23 03/03/23 [Vitamin B-12] Ergocalciferol (Vitamin D2) 1,250 mcg PO ROGEL 01/26/23 03/03/23 [Drisdol (50,000 Iu)] Previous Rx's Medication Instructions Recorded Loperamide [Imodium] 2 mg PO QID PRN 30 Days #120 cap 02/02/23 OLANZapine ODT [ZyPREXA Zydis] 2.5 mg PO HS 30 Days #30 tab 02/02/23 Allergies Allergy/AdvReac Type Severity Reaction Status Date / Time No Known Allergies Allergy Verified 03/03/23 13:05 Review of Systems ROS Statement: Those systems with pertinent positive or pertinent negative responses have been documented in the HPI. ROS Other: All systems not noted in ROS Statement are negative. Past Medical History Past Medical History: Asthma, Cancer, COPD, GERD/Reflux, Memory Impairment, Musculoskeletal Disorder, Osteoarthritis (OA), Sleep Apnea/CPAP/BIPAP Additional Past Medical History / Comment(s): PT STATES SOME MEMORY PROBLEMS AND LEARNING DISABILITY, HAS FRIEND WHO HELPS HER WITH MEDICATIONS AND APPTS., STATES MUSCLE SPASMS, BACK PROBLEMS WITH DISC DISEASE, ANEMIA, URINARY URGENCY, PROBLEMS WITH DIARRHEA & CONSTIPATION.Pancreatic CA diagnosed August 2022 History of Any Multi-Drug Resistant Organisms: None Reported Past Surgical History: Section, Cholecystectomy, Hysterectomy Additional Past Surgical History / Comment(s): 2 C-SECTIONS, PARTIAL HYSTERECTOMY, BERNADETTE REMOVED. Past Anesthesia/Blood Transfusion Reactions: Motion Sickness Additional Past Anesthesia/Blood Transfusion Reaction / Comment(s): STATES DIFFICULTY WAKING UP AFTER ANESTHESIA Past Psychological History: Anxiety, Depression Smoking Status: Former smoker - Past Family History Mother Family Medical History: Cancer Additional Family Medical History / Comment(s): LUNG AND BRAIN CA General Exam - General Exam Comments Initial Comments: PHYSICAL EXAM: General Impression: Alert and oriented x3, not in acute distress HEENT: Normocephalic atraumatic, extra-ocular movements intact, pupils equal and reactive to light bilaterally, mucous membranes moist. Cardiovascular: Heart regular rate and rhythm Chest: Able to complete full sentences, no retractions, no tachypnea Abdomen: abdomen soft, mild palpatory tenderness to the right lower quadrant, non-distended, no organomegaly Musculoskeletal: Pulses present and equal in all extremities, no peripheral edema Motor: no focal deficits noted Neurological: CN II-XII grossly intact, no focal motor or sensory deficits noted Skin: Intact with no visualized rashes Psych: Normal affect and mood Limitations: no limitations Course Vital Signs 03/03/23 11:01 Temperature 98.2 F Pulse Rate 109 H Respiratory 16 Rate Blood Pressure 110/73 O2 Sat by Pulse 100 Oximetry Medical Decision Making - Medical Decision Making Was pt. sent in by a medical professional or institution (, PA, JORDAN MAN, urgent care, hospital, or assisted...) When possible be specific @ -No Did you speak to anyone other than the patient for history (EMS, parent, family, police, friend...)? What history was obtained from this source @ -No Did you review nursing and triage notes (agree or disagree)? Why? @ -I reviewed and agree with nursing and triage notes Were old charts reviewed (outside hosp., previous admission, EMS record, old EKG, old radiological studies, urgent care reports/EKG's, assisted records)? Report findings @ -No old charts were reviewed Differential Diagnosis (chest pain, altered mental status, abdominal pain women, abdominal pain men, vaginal bleeding, musculoskeletal, weakness, fever, dyspnea, syncope, headache, dizziness, GI bleed, back pain, seizure, CVA, palpatations, mental health)? @ -Differential Abdominal Pain Women: Appendicitis, Cholecystitis, diverticulosis, ischemic bowel, pancreatitis, hepatitis, UTI, gastroenteritis, AAA, incarcerated hernia, bowel obstruction, constipation, inflammatory bowel, hepatitis, peptic ulcer disease, splenic infarction, perforated viscus, vulvitis, ovarian torsion, PID, kidney stone, placenta abruption, this is not meant to be an all-inclusive list EKG interpreted by me (3pts min.). @ -None done X-rays interpreted by me (1pt min.). @ -None done CT interpreted by me (1pt min.). @ -Computed tomography scan of the abdomen shows no acute processes U/S interpreted by me (1pt. min.). @ -None done What testing was considered but not performed or refused? (CT, X-rays, U/S, labs)? Why? @ -None What meds were considered but not given or refused? Why? @ -None Did you discuss the management of the patient with other professionals (professionals i.e. , PA, JORDAN MAN, lab, RT, psych nurse, social worker psychiatric, sports management intern, teacher, military source operations officer, case preparer and liner)? Give summary @ -No Was smoking cessation discussed for >3mins.? @ -No Was critical care preformed (if so, how long)? @ -No Were there social determinants of health that impacted care today? How? (Homelessness, low income, unemployed, alcoholism, drug addiction, transportation, low edu. Level, literacy, decrease access to med. care, alf, rehab)? @ -No Was there de-escalation of care discussed even if they declined (Discuss DNR or withdrawal of care, Hospice)? DNR status @ -No What co-morbidities impacted this encounter? (DM, HTN, Smoking, COPD, CAD, Cancer, CVA, ARF, Chemo, Hep., AIDS, mental health diagnosis, sleep apnea, morbid obesity)? @ -None Was patient admitted / discharged? Hospital course, mention meds given and route, prescriptions, significant lab abnormalities, going to OR and other pertinent info. @ -57-year-old female presents to emergency Department with right lower quadrant pain she has past medical history of intra-abdominal cancer. Vital signs stable. Patient is well-appearing. Laboratory evaluation all within baseline. Abdominal labs negative. CT is negative for any acute processes. Patient discharged she has an appointment with her oncologist tomorrow. Patient otherwise told to call their primary care doctor. Reevaluated bedside at 2:30 PM in stable medical condition. She is well-appearing Undiagnosed new problem with uncertain prognosis? @ -No Drug Therapy requiring intensive monitoring for toxicity (Heparin, Nitro, Insulin, Cardizem)? @ -No Were any procedures done? @ -No Diagnosis/symptom? Acute, or Chronic, or Acute on Chronic? Uncomplicated (without systemic symptoms) or Complicated (systemic symptoms)? @ -Abdominal pain, no obvious source Side effects of treatment? @ -No Exacerbation, Progression, or Severe Exacerbation? @ -No Poses a threat to life or bodily function? How? (Chest pain, [place], [place], pneumonia, PE, COPD, DKA, ARF, appy, cholecystitis, CVA, Diverticulitis, Homicidal, Suicidal, threat to staff... and all critical care pts) @ -No - Lab Data Result diagrams: 03/03/23 11:49 03/03/23 11:49 Lab Results 03/03/23 03/03/23 Range/Units 11:49 11:49 WBC 3.4 L (3.8-10.6) k/uL RBC 2.97 L (3.80-5.40) m/uL Hgb 9.1 L D (11.4-16.0) gm/dL Hct 27.5 L (34.0-46.0) % MCV 92.3 (80.0-100.0) fL MCH 30.7 (25.0-35.0) pg MCHC 33.3 (31.0-37.0) g/dL RDW 14.7 (11.5-15.5) % Plt Count 108 L D (150-450) k/uL MPV 7.9 Neutrophils % 70 % Lymphocytes % 21 % Monocytes % 2 % Eosinophils % 6 % Basophils % 0 % Neutrophils # 2.4 (1.3-7.7) k/uL Lymphocytes # 0.7 L (1.0-4.8) k/uL Monocytes # 0.1 (0-1.0) k/uL Eosinophils # 0.2 (0-0.7) k/uL Basophils # 0.0 (0-0.2) k/uL Manual Slide Review Performed Sodium 137 (137-145) mmol/L Potassium 3.6 (3.5-5.1) mmol/L Chloride 107 (98-107) mmol/L Carbon Dioxide 22 (22-30) mmol/L Anion Gap 8 mmol/L BUN 6 L (7-17) mg/dL Creatinine 0.45 L (0.52-1.04) mg/dL Est GFR (CKD-EPI)AfAm >90 (>60 ml/min/1.73 sqM) Est GFR (CKD-EPI)NonAf >90 (>60 ml/min/1.73 sqM) Glucose 129 H (74-99) mg/dL Calcium 8.3 L (8.4-10.2) mg/dL Total Bilirubin 0.3 (0.2-1.3) mg/dL AST 51 H (14-36) U/L ALT 29 (4-34) U/L Alkaline Phosphatase 104 (38-126) U/L Total Protein 5.1 L (6.3-8.2) g/dL Albumin 2.4 L (3.5-5.0) g/dL Lipase 108 (23-300) U/L Disposition Clinical Impression: Abdominal pain Disposition: HOME SELF-CARE Condition: Good Instructions (If sedation given, give patient instructions): Abdominal Pain (ED) Is patient prescribed a controlled substance at d/c from ED?: No Referrals: Michael Leal MD [Primary Care Provider] - 1-2 days Time of Disposition: 14:36
[2023-03-03 11:26] VITALS: TEMP 98.2
[2023-03-03 12:03] LABS: Basophils % (A) 0 %; Eosinophils # (A) 0.2 k/uL (0-0.7); Eosinophils % (A) 6 %; HCT 27.5 % (34.0-46.0); Lymphocytes # (A) 0.7 k/uL (1.0-4.8); Lymphocytes % (A) 21 %; MCH 30.7 pg (25.0-35.0); MCHC 33.3 g/dL (31.0-37.0); MCV 92.3 fL (80.0-100.0); Mean Platelet Volume 7.9; Monocytes # (A) 0.1 k/uL (0-1.0); Monocytes % (A) 2 %; Neutrophils # (A) 2.4 k/uL (1.3-7.7); Neutrophils % (A) 70 %; RBC 2.97 m/uL (3.80-5.40); RDW 14.7 % (11.5-15.5); WBC 3.4 k/uL (3.8-10.6)
[2023-03-03 12:06] LABS: HGB 9.1 gm/dL (11.4-16.0); Platelet Count 108 k/uL (150-450)
[2023-03-03 12:13] LABS: ALT 29 U/L (4-34); AST 51 U/L (14-36); African American GFR (CKD) >90 (>60 ml/min/1.73 sqM); Albumin 2.4 g/dL (3.5-5.0); Alkaline Phosphatase 104 U/L (38-126); Anion Gap 8 mmol/L; Blood Urea Nitrogen 6 mg/dL (7-17); Calcium 8.3 mg/dL (8.4-10.2); Carbon Dioxide 22 mmol/L (22-30); Chloride 107 mmol/L (98-107); Glucose 129 mg/dL (74-99); Lipase 108 U/L (23-300); Non-African American GFR(CKD) >90 (>60 ml/min/1.73 sqM); Potassium 3.6 mmol/L (3.5-5.1); Sodium 137 mmol/L (137-145); Total Bilirubin 0.3 mg/dL (0.2-1.3); Total Protein 5.1 g/dL (6.3-8.2)
--- NOTE | 2023-03-03 14:27 | CT ---
EXAMINATION TYPE: CT abdomen pelvis w con CT DLP: 659.1 mGycm, Automated exposure control for dose reduction was used. DATE OF EXAM: 03/03/2023 12:39 PM COMPARISON: None. CLINICAL INDICATION:Female, 57 years old with history of abdominal pain, hx of pancreatic cancer; [place] creatic CA, loss of appetite, pain TECHNIQUE: Axial CT of the abdomen and pelvis. Sagittal and coronal reformats were created on a [employer] workstation. Contrast used:100ml mL of Isovue 300 with IV Contrast, (none if empty) Oral contrast used: without Oral Contrast (none if empty) FINDINGS: LOWER CHEST: Heart size upper normal. Small amount of pericardial effusion. Lung bases show mild subs egmental atelectasis. ABDOMEN LIVER, GALLBLADDER AND BILE DUCTS: Portal veins are prominent and enhancing. The main portal vein is 21 mm. Splenic vein and SMV are also prominent. There are venous collaterals in the abdomen including paraesophageal and perigastric. Overall findings suggest portal hypertension. Status post cholecystectomy. There is a metallic CBD stent, as well as a pigtail catheter which begin s proximal to the stent and courses through it, terminating in the lumen of the duodenum. There is mi ld scattered pneumobilia within the liver likely due to presence of the stents. Biliary tree appears decompressed. No clear evidence of hepatic mass. PANCREAS: The body and tail of the pancreas appear atrophic with mild prominence of the pancreatic du ct. The pancreatic head and body appear somewhat full without clearly identifiable mass. SPLEEN: Unremarkable. ADRENAL GLANDS: Thickened and small nodular appearance of the adrenals, could be due to hyperplasia a nd/or adenomatoid changes. No mass. KIDNEYS AND URETERS: Kidneys enhance symmetrically. No evidence of hydronephrosis or visible renal ca lculus. The ureters are unremarkable. PELVIS BLADDER: Incompletely distended with mildly thickened appearance to the wall.. REPRODUCTIVE: The uterus appears absent, correlate for hysterectomy. Uncertain if the ovaries remain. There is no evidence for adnexal mass. ABDOMEN & PELVIS STOMACH AND BOWEL: Moderate to large hiatal hernia with thickened and slightly enhancing wall. This m ay also involve the proximal aspect of the stomach. Mildly thickened appearance of the gastric outlet could reflect inflammation or nondistention. The duodenal sweep is patent. Fluid and small bowel loo ps without significant distention seen to suggest obstruction. The appendix appears within normal nascimento its. Moderate amount of stool in the right colon. Some segments of colon are nondistended/collapsed a nd not well assessed. As a narrowed appearing segment in the mid transverse colon. Question mildly th ickened wall throughout the sigmoid colon without definite diverticular disease. PERITONEUM/RETROPERITONEUM: No evidence of pneumoperitoneum or free fluid. VASCULATURE: Aorta and major branches are grossly unremarkable. No AAA. LYMPH NODES: No gross evidence for lymphadenopathy. SOFT TISSUE/ABDOMINAL WALL: Unremarkable MUSCULOSKELETAL: No acute osseous abnormalities. Mild disc degeneration changes are present throughou t the thoracolumbar spine. A few small scattered sclerotic foci, nonspecific but could relate to [place]. A destructive bony lesion is not seen. Ventral tilting of the tip of the coccyx likely rep resents remote injury. IMPRESSION: 1. No clear-cut obstructive or inflammatory process to explain abdominal pain. 2. No mass or adenopathy demonstrated to suggest active metastatic disease. 3. Post cholecystectomy. Internal biliary stents in place with decompressed biliary tree and mild pn eumobilia. 4. Overall venous findings suggest portal hypertension. 5. Atrophic body and tail of the pancreas, with some fullness of the head and body without clearly i dentifiable mass. 6. Thickened appearance of the urinary bladder wall, could be due to incomplete distention or bladde r wall hypertrophy, but correlate clinically to exclude cystitis. 7. Moderate to large hiatal hernia with thickened and slightly enhancing wall suggestive of inflamma tion. This may also involve the proximal aspect of the stomach. Mildly thickened appearance of the ga stric outlet could reflect inflammation versus nondistention. 8. Narrowed appearing segment in the mid transverse colon, and question mildly thickened wall throug hout the sigmoid colon, could be related to nondistention with inflammatory thickening possible.
[2023-03-03 14:42] VITALS: BP 105/71; PULSE 63; RESP 18
== END 2023-03-03 14:53 | disposition home or self-care (01) ==
LOC: EC 10:58
DX: R10.31 Right lower quadrant pain (principal); F32.A Depression, unspecified; F41.9 Anxiety disorder, unspecified; G47.30 Sleep apnea, unspecified; K21.9 Gastro-esophageal reflux disease without esophagitis; M19.90 Unspecified osteoarthritis, unspecified site; Z79.51 Long term (current) use of inhaled steroids; Z79.899 Other long term (current) drug therapy; Z87.891 Personal history of nicotine dependence; Z90.49 Acquired absence of other specified parts of digestive tract
CPT/HCPCS: 36415; 80053; 83690; 85025; 74177; 99284; Q9967

== ENCOUNTER 2023-05-30 19:57 | Emergency (ER) | payer MEDICARE, OTHER ==
[2023-05-30] MEDS: ACETAMINOPHEN TAB 500 MG TAB PO STA (21:15)
[2023-05-30] MEDS: ONDANSETRON 4 MG/2 ML VIAL IVP STA (21:15)
[2023-05-30] MEDS: SODIUM CHLORIDE 0.9% 1,000 ML IV STA (21:18)
[2023-05-30 21:30] LABS: Anisocytosis Slight; Basophils % (A) 0 %; Eosinophils # (A) 0.1 k/uL (0-0.7); Eosinophils % (A) 1 %; HCT 26.4 % (34.0-46.0); Lymphocytes # (A) 0.8 k/uL (1.0-4.8); Lymphocytes % (A) 8 %; MCH 28.7 pg (25.0-35.0); MCV 92.6 fL (80.0-100.0); Mean Platelet Volume 8.7; Monocytes # (A) 0.1 k/uL (0-1.0); Monocytes % (A) 1 %; Neutrophils # (A) 8.2 k/uL (1.3-7.7); Neutrophils % (A) 89 %; Platelet Count 142 k/uL (150-450); RBC 2.85 m/uL (3.80-5.40); RDW 18.1 % (11.5-15.5); WBC 9.2 k/uL (3.8-10.6)
[2023-05-30 21:42] LABS: ALT 109 U/L (4-34); AST 241 U/L (14-36); African American GFR (CKD) >90 (>60 ml/min/1.73 sqM); Albumin 2.5 g/dL (3.5-5.0); Alkaline Phosphatase 110 U/L (38-126); Amylase 60 U/L (30-110); Anion Gap 0 mmol/L; Blood Urea Nitrogen 13 mg/dL (7-17); Calcium 7.8 mg/dL (8.4-10.2); Carbon Dioxide 26 mmol/L (22-30); Chloride 108 mmol/L (98-107); Glucose 104 mg/dL (74-99); Lipase 182 U/L (23-300); Non-African American GFR(CKD) >90 (>60 ml/min/1.73 sqM); Potassium 3.9 mmol/L (3.5-5.1); Sodium 134 mmol/L (137-145); Total Bilirubin 1.1 mg/dL (0.2-1.3); Total Protein 4.9 g/dL (6.3-8.2)
[2023-05-30 21:48] LABS: HGB 8.2 gm/dL (11.4-16.0)
[2023-05-30 22:48] LABS: Amorphous Sediment,Urine Occasional /hpf; Appearance,Urine Cloudy (Clear); Bilirubin,Urine Negative (Negative); Blood,Urine Negative (Negative); Color,Urine Yellow; Glucose,Urine (UA) Negative (Negative); Ketones,Urine Negative (Negative); Leukocyte Esterase,Urine Negative (Negative); Mucus,Urine Rare /hpf; Nitrite,Urine Negative (Negative); PH, Urine 8.5 (5.0-8.0); Protein,Urine 1+ (Negative); Specific Gravity,Urine 1.018 (1.001-1.035); Squamous Epithelial Cell,Urine 4 /hpf (0-4); WBC,Urine 4 /hpf (0-5)
--- NOTE | 2023-05-31 00:04 | ED ---
Nausea/Vomiting/Diarrhea HPI - General Chief complaint: Nausea/Vomiting/Diarrhea Stated complaint: Cough, off balance Time Seen by Provider: 05/30/23 20:12 Source: patient Mode of arrival: ambulatory Limitations: no limitations - History of Present Illness Initial comments: 57-year-old female presenting with chief complaint of "I just do not feel good". Patient admits to weakness and fatigue. She also admits to cough and congestion. Today she presents with a fever. She also complains of nausea and vomiting. No abdominal pain. States that her emesis is brown in color. She has history of GI ulcers. No chest pain or difficulty breathing. No lower extremity swelling. Patient has pancreatic cancer and is currently undergoing chemotherapy. - Related Data Home Medications Medication Instructions Recorded Confirmed Albuterol Inhaler [Ventolin Hfa 1 - 2 puff INHALATION RT-Q6H PRN 11/03/22 05/27/23 Inhaler] Aspirin EC [Ecotrin Low Dose] 81 mg PO DAILY 11/03/22 05/27/23 DULoxetine HCL [Cymbalta] 30 mg PO BID 11/03/22 05/27/23 Ferrous Sulfate [Iron] 325 mg PO DAILY 11/03/22 05/27/23 Fluticasone/Umeclidin/Vilanter 1 puff INHALATION RT-DAILY 11/03/22 05/27/23 [Trelegy Ellipta 100-62.5-25] Metoprolol Tartrate [Lopressor] 25 mg PO BID 11/03/22 05/27/23 Midodrine HCl 5 mg PO TID 11/03/22 05/27/23 Potassium Chloride ER [K-Dur 20] 20 meq PO BID 11/03/22 05/27/23 calcitrioL 0.25 mcg PO DAILY 11/03/22 05/27/23 Budesonide [Pulmicort] 0.5 mg INHALATION RT-BID 11/28/22 05/27/23 Cholestyramine (with Sugar) 4 gm PO BID 11/28/22 05/27/23 [Cholestyramine Powder] Famotidine [Pepcid] 40 mg PO DAILY 11/28/22 05/27/23 Ipratropium-Albuterol Nebulize 3 ml INHALATION RT-Q6H PRN 11/28/22 05/27/23 [Duoneb 0.5 mg-3 mg/3 ml Soln] LORazepam [Ativan] 0.5 mg PO Q8HR PRN 11/28/22 05/27/23 Ondansetron [Zofran] 4 mg PO DAILY PRN 11/28/22 05/27/23 Rosuvastatin Calcium 5 mg PO HS 11/28/22 05/27/23 lamoTRIgine [LaMICtal] 75 mg PO HS 11/28/22 05/27/23 Cyanocobalamin (Vitamin B-12) 1,000 mcg PO DAILY 01/26/23 05/27/23 [Vitamin B-12] Ergocalciferol (Vitamin D2) 1,250 mcg PO ROGEL 01/26/23 05/27/23 [Drisdol (50,000 Iu)] Gabapentin 300 mg PO BID 05/29/23 05/29/23 Previous Rx's Medication Instructions Recorded Loperamide [Imodium] 2 mg PO QID PRN 30 Days #120 cap 02/02/23 OLANZapine ODT [ZyPREXA Zydis] 2.5 mg PO HS 30 Days #30 tab 02/02/23 Allergies Allergy/AdvReac Type Severity Reaction Status Date / Time No Known Allergies Allergy Verified 05/30/23 20:09 Review of Systems ROS Statement: Those systems with pertinent positive or pertinent negative responses have been documented in the HPI. ROS Other: All systems not noted in ROS Statement are negative. Past Medical History Past Medical History: Asthma, Cancer, COPD, GERD/Reflux, Memory Impairment, Musculoskeletal Disorder, Osteoarthritis (OA), Sleep Apnea/CPAP/BIPAP Additional Past Medical History / Comment(s): PT STATES SOME MEMORY PROBLEMS AND LEARNING DISABILITY, HAS FRIEND WHO HELPS HER WITH MEDICATIONS AND APPTS., STATES MUSCLE SPASMS, BACK PROBLEMS WITH DISC DISEASE, ANEMIA, URINARY URGENCY, PROBLEMS WITH DIARRHEA & CONSTIPATION.Pancreatic CA diagnosed August 2022 History of Any Multi-Drug Resistant Organisms: None Reported Past Surgical History: Section, Cholecystectomy, Hysterectomy Additional Past Surgical History / Comment(s): 2 C-SECTIONS, PARTIAL HYSTERECTOMY, BERNADETTE REMOVED. Past Anesthesia/Blood Transfusion Reactions: Motion Sickness Additional Past Anesthesia/Blood Transfusion Reaction / Comment(s): STATES DIFFICULTY WAKING UP AFTER ANESTHESIA Past Psychological History: Anxiety, Depression Smoking Status: Former smoker Past Alcohol Use History: None Reported Past Drug Use History: None Reported - Past Family History Mother Family Medical History: Cancer Additional Family Medical History / Comment(s): LUNG AND BRAIN CA General Exam Limitations: no limitations General appearance: alert, in no apparent distress Head exam: Present: atraumatic, normocephalic Eye exam: Present: normal appearance, EOMI Neck exam: Present: normal inspection Respiratory exam: Present: normal lung sounds bilaterally. Absent: respiratory distress, wheezes, rales, rhonchi, stridor Cardiovascular Exam: Present: regular rate, normal rhythm, normal heart sounds. Absent: systolic murmur, diastolic murmur, rubs, gallop, clicks GI/Abdominal exam: Present: soft, tenderness (diffuse discomfort). Absent: distended, guarding, rebound, rigid Neurological exam: Present: alert, oriented X3 Psychiatric exam: Present: normal affect, normal mood Skin exam: Present: warm, dry Course Vital Signs 05/30/23 05/30/23 05/30/23 20:03 21:50 22:00 Temperature 100.2 F H 98.5 F Pulse Rate 81 98 97 Respiratory 18 16 18 Rate Blood Pressure 107/69 111/71 111/71 O2 Sat by Pulse 100 99 100 Oximetry 05/30/23 05/31/23 05/31/23 23:00 00:00 00:01 Temperature Pulse Rate 85 90 81 Respiratory 16 16 16 Rate Blood Pressure 112/71 99/68 103/72 O2 Sat by Pulse 100 98 99 Oximetry 05/31/23 05/31/23 00:30 01:18 Temperature 97.7 F 97.7 F Pulse Rate 84 Respiratory 18 Rate Blood Pressure 107/71 O2 Sat by Pulse 98 Oximetry Medical Decision Making - Medical Decision Making Was pt. sent in by a medical professional or institution (, PA, PATIENT ACCOUNT REPRESENTATIVE, urgent care, hospital, or long-term...) When possible be specific @ -No Did you speak to anyone other than the patient for history (EMS, parent, family, police, friend...)? What history was obtained from this source @ -No Did you review nursing and triage notes (agree or disagree)? Why? @ -I reviewed and agree with nursing and triage notes Were old charts reviewed (outside hosp., previous admission, EMS record, old EKG, old radiological studies, urgent care reports/EKG's, long-term records)? Report findings @ -No old charts were reviewed Differential Diagnosis (chest pain, altered mental status, abdominal pain women, abdominal pain men, vaginal bleeding, weakness, fever, dyspnea, syncope, headache, dizziness, GI bleed, back pain, seizure, CVA, palpatations, mental health, musculoskeletal)? @ -[facility] Differential GI Bleed: Esophageal varices, aortoenteric fistula, Bonnie-Mary, gastritis, peptic ulcer disease, diverticulosis, inflammatory bowel disease, hemorrhoids, fissure, colitis, malignancy, Meckels diverticulum this is not meant to be an all- inclusive list. EKG interpreted by me (3pts min.). @ -EKG shows sinus tachycardia ventricular rate 117. OH interval 153. QRS 73. QT 326. QTc 396. X-rays interpreted by me (1pt min.). @ -Chest x-ray shows no new acute pulmonary infiltrate CT interpreted by me (1pt min.). @ -None done U/S interpreted by me (1pt. min.). @ -None done What testing was considered but not performed or refused? (CT, X-rays, U/S, labs)? Why? @ -None What meds were considered but not given or refused? Why? @ -None Did you discuss the management of the patient with other professionals (professionals i.e. , PA, PATIENT ACCOUNT REPRESENTATIVE, lab, RT, psych nurse, health social work professor, clinical transformation specialist, teacher, deputy probation officer, showcase maker)? Give summary @ -I spoke with Dr. Martinez at [facility] who accepted transfer Was smoking cessation discussed for >3mins.? @ -No Was critical care preformed (if so, how long)? @ -No Were there social determinants of health that impacted care today? How? (Homelessness, low income, unemployed, alcoholism, drug addiction, transportation, low edu. Level, literacy, decrease access to med. care, penitentiary, rehab)? @ -No Was there de-escalation of care discussed even if they declined (Discuss DNR or withdrawal of care, Hospice)? DNR status @ -No What co-morbidities impacted this encounter? (DM, HTN, Smoking, COPD, CAD, Cancer, CVA, ARF, Chemo, Hep., AIDS, mental health diagnosis, sleep apnea, morbid obesity)? @ -None Was patient admitted / discharged? Hospital course, mention meds given and route, prescriptions, significant lab abnormalities, going to OR and other pertinent info. @ -57-year-old female presenting with chief complaint of fatigue, nausea, vomiting, fever. Patient has pancreatic cancer and is currently undergoing chemotherapy. History and physical exam are conducted. Patient is given fluid bolus, Zofran, Tylenol for fever. Urine shows no infectious process. Hem oglobin is 8.2, 2 point drop since 05/26 when her hemoglobin was 10.1. Patient does have history of gastric ulcers. Occult blood is positive. We do not have GI services this week. Patient will require transfer. She is excepted at [facility]. She is agreeable with this plan. I discussed this case with my attending Dr. Yen. Undiagnosed new problem with uncertain prognosis? @ -No Drug Therapy requiring intensive monitoring for toxicity (Heparin, Nitro, Insulin, Cardizem)? @ -No Were any procedures done? @ -No Diagnosis/symptom? @ -GI bleed Acute, or Chronic, or Acute on Chronic? @ -Acute Uncomplicated (without systemic symptoms) or Complicated (systemic symptoms)? @ -Complicated Side effects of treatment? @ -No Exacerbation, Progression, or Severe Exacerbation? @ -No Poses a threat to life or bodily function? How? (Chest pain, USA, [place], pneumonia, PE, COPD, DKA, ARF, appy, cholecystitis, CVA, Diverticulitis, Homicidal, Suicidal, threat to staff... and all critical care pts) @ -Yes - Lab Data Result diagrams: 05/30/23 21:15 05/30/23 21:15 Lab Results 05/30/23 05/30/23 05/30/23 Range/Units 21:15 21:15 21:15 WBC 9.2 (3.8-10.6) k/uL RBC 2.85 L (3.80-5.40) m/uL Hgb 8.2 L D (11.4-16.0) gm/dL Hct 26.4 L (34.0-46.0) % MCV 92.6 (80.0-100.0) fL MCH 28.7 (25.0-35.0) pg MCHC 31.0 (31.0-37.0) g/dL RDW 18.1 H (11.5-15.5) % Plt Count 142 L (150-450) k/uL MPV 8.7 Neutrophils % 89 % Lymphocytes % 8 % Monocytes % 1 % Eosinophils % 1 % Basophils % 0 % Neutrophils # 8.2 H (1.3-7.7) k/uL Lymphocytes # 0.8 L (1.0-4.8) k/uL Monocytes # 0.1 (0-1.0) k/uL Eosinophils # 0.1 (0-0.7) k/uL Basophils # 0.0 (0-0.2) k/uL Anisocytosis Slight Sodium 134 L (137-145) mmol/L Potassium 3.9 (3.5-5.1) mmol/L Chloride 108 H (98-107) mmol/L Carbon Dioxide 26 (22-30) mmol/L Anion Gap 0 mmol/L BUN 13 (7-17) mg/dL Creatinine 0.57 (0.52-1.04) mg/dL Est GFR (CKD-EPI)AfAm >90 (>60 ml/min/1.73 sqM) Est GFR (CKD-EPI)NonAf >90 (>60 ml/min/1.73 sqM) Glucose 104 H (74-99) mg/dL Calcium 7.8 L (8.4-10.2) mg/dL Total Bilirubin 1.1 (0.2-1.3) mg/dL AST 241 H (14-36) U/L ALT 109 H (4-34) U/L Alkaline Phosphatase 110 (38-126) U/L Total Protein 4.9 L (6.3-8.2) g/dL Albumin 2.5 L (3.5-5.0) g/dL Amylase 60 (30-110) U/L Lipase 182 (23-300) U/L Urine Color Urine Appearance (Clear) Urine pH (5.0-8.0) Ur Specific [place] (1.001-1.035) Urine Protein (Negative) Urine Glucose (UA) (Negative) Urine Ketones (Negative) Urine Blood (Negative) Urine Nitrite (Negative) Urine Bilirubin (Negative) Urine Urobilinogen (<2.0) mg/dL Ur Leukocyte Esterase (Negative) Urine WBC (0-5) /hpf Ur Squamous Epith Cells (0-4) /hpf Amorphous Sediment (None) /hpf Urine Mucus (None) /hpf Stool Occult Blood (Negative) Influenza Type A (PCR) Not Detected (Not Detectd) Influenza Type B (PCR) Not Detected (Not Detectd) RSV (PCR) Not Detected (Not Detectd) SARS-CoV-2 (PCR) Not Detected (Not Detectd) 05/30/23 05/30/23 Range/Units 22:19 22:35 WBC (3.8-10.6) k/uL RBC (3.80-5.40) m/uL Hgb (11.4-16.0) gm/dL Hct (34.0-46.0) % MCV (80.0-100.0) fL MCH (25.0-35.0) pg MCHC (31.0-37.0) g/dL RDW (11.5-15.5) % Plt Count (150-450) k/uL MPV Neutrophils % % Lymphocytes % % Monocytes % % Eosinophils % % Basophils % % Neutrophils # (1.3-7.7) k/uL Lymphocytes # (1.0-4.8) k/uL Monocytes # (0-1.0) k/uL Eosinophils # (0-0.7) k/uL Basophils # (0-0.2) k/uL Anisocytosis Sodium (137-145) mmol/L Potassium (3.5-5.1) mmol/L Chloride (98-107) mmol/L Carbon Dioxide (22-30) mmol/L Anion Gap mmol/L BUN (7-17) mg/dL Creatinine (0.52-1.04) mg/dL Est GFR (CKD-EPI)AfAm (>60 ml/min/1.73 sqM) Est GFR (CKD-EPI)NonAf (>60 ml/min/1.73 sqM) Glucose (74-99) mg/dL Calcium (8.4-10.2) mg/dL Total Bilirubin (0.2-1.3) mg/dL AST (14-36) U/L ALT (4-34) U/L Alkaline Phosphatase (38-126) U/L Total Protein (6.3-8.2) g/dL Albumin (3.5-5.0) g/dL Amylase (30-110) U/L Lipase (23-300) U/L Urine Color Yellow Urine Appearance Cloudy H (Clear) Urine pH 8.5 H (5.0-8.0) Ur Specific [place] 1.018 (1.001-1.035) Urine Protein 1+ H (Negative) Urine Glucose (UA) Negative (Negative) Urine Ketones Negative (Negative) Urine Blood Negative (Negative) Urine Nitrite Negative (Negative) Urine Bilirubin Negative (Negative) Urine Urobilinogen 4.0 (<2.0) mg/dL Ur Leukocyte Esterase Negative (Negative) Urine WBC 4 (0-5) /hpf Ur Squamous Epith Cells 4 (0-4) /hpf Amorphous Sediment Occasional H (None) /hpf Urine Mucus Rare H (None) /hpf Stool Occult Blood Positive H (Negative) Influenza Type A (PCR) (Not Detectd) Influenza Type B (PCR) (Not Detectd) RSV (PCR) (Not Detectd) SARS-CoV-2 (PCR) (Not Detectd) Disposition Clinical Impression: GI bleed Disposition: OTHER INSTITUTION NOT DEFINED Condition: Stable Referrals: Michael Leal MD [Primary Care Provider] - 1-2 days Time of Disposition: 00:04 - Out of Hospital Transfer - Req. Specs Out of Hospital Transfer - Requested Specifics: Other [facility] ([facility])
--- NOTE | 2023-05-31 00:16 | XR ---
EXAMINATION TYPE: XR chest 2V DATE OF EXAM: 05/31/2023 COMPARISON: Prior chest x-ray January 30, 2023 HISTORY: Cough and fever TECHNIQUE: Frontal and lateral views of the chest are obtained. FINDINGS: Stable right internal jugular Mediport catheter. There is no suspicious new focal air spac e opacity, pleural effusion, or pneumothorax seen. The cardiac silhouette size is stable and within normal limits. The osseous structures are intact. IMPRESSION: No new acute pulmonary infiltrate.
[2023-05-31] MEDS: MIDODRINE 5 MG TAB PO STA (00:27)
[2023-05-31] MEDS: SODIUM CHLORIDE 0.9% 1,000 ML IV ONE (00:27)
[2023-05-31 00:47] VITALS: TEMP 97.7
[2023-05-31 01:38] VITALS: BP 107/71; PULSE 84; RESP 18
== END 2023-05-31 01:27 | disposition other institution (70) ==
LOC: EC 19:57
DX: K92.2 Gastrointestinal hemorrhage, unspecified (principal); Z87.891 Personal history of nicotine dependence
CPT/HCPCS: 36415; 93005; 80053; 82150; 83690; 85025; 82272; 81001; 87636; 71046; 99284; 96374; 96361 ×2; J2405

== ENCOUNTER 2023-06-03 20:52 | Inpatient (IN) | payer MEDICARE, OTHER ==
[2023-06-03] MEDS ORDERED: VANCOMYCIN IV PER PHARMACY 1 EACH MISC MISCELLANE PRN (21:37)
--- NOTE | 2023-06-03 21:37 | ED ---
General Adult HPI - General Chief complaint: Recheck/Abnormal Lab/Rx Stated complaint: abnormal labs Time Seen by Provider: 06/03/23 21:07 Source: patient, RN notes reviewed, old records reviewed Mode of arrival: ambulatory Limitations: no limitations - History of Present Illness Initial comments: 57-year-old female presenting for evaluation of fever and positive blood culture. Patient is currently being treated for pancreatic cancer she is on chemotherapy and had chemo approximately 1 week ago. Patient was discharged from [facility] 2 days prior and had positive blood culture today which was reported as a gram positive bacilli. These results will be obtained from [facility]. Patient has had fever at home for the past 4 days and continues to have nausea and vomiting. - Related Data Home Medications Medication Instructions Recorded Confirmed Albuterol Inhaler [Ventolin Hfa 1 - 2 puff INHALATION RT-Q6H PRN 11/03/22 05/27/23 Inhaler] Aspirin EC [Ecotrin Low Dose] 81 mg PO DAILY 11/03/22 05/27/23 DULoxetine HCL [Cymbalta] 30 mg PO BID 11/03/22 05/27/23 Ferrous Sulfate [Iron] 325 mg PO DAILY 11/03/22 05/27/23 Fluticasone/Umeclidin/Vilanter 1 puff INHALATION RT-DAILY 11/03/22 05/27/23 [Trelegy Ellipta 100-62.5-25] Metoprolol Tartrate [Lopressor] 25 mg PO BID 11/03/22 05/27/23 Midodrine HCl 5 mg PO TID 11/03/22 05/27/23 Potassium Chloride ER [K-Dur 20] 20 meq PO BID 11/03/22 05/27/23 calcitrioL 0.25 mcg PO DAILY 11/03/22 05/27/23 Budesonide [Pulmicort] 0.5 mg INHALATION RT-BID 11/28/22 05/27/23 Cholestyramine (with Sugar) 4 gm PO BID 11/28/22 05/27/23 [Cholestyramine Powder] Famotidine [Pepcid] 40 mg PO DAILY 11/28/22 05/27/23 Ipratropium-Albuterol Nebulize 3 ml INHALATION RT-Q6H PRN 11/28/22 05/27/23 [Duoneb 0.5 mg-3 mg/3 ml Soln] LORazepam [Ativan] 0.5 mg PO Q8HR PRN 11/28/22 05/27/23 Ondansetron [Zofran] 4 mg PO DAILY PRN 11/28/22 05/27/23 Rosuvastatin Calcium 5 mg PO HS 11/28/22 05/27/23 lamoTRIgine [LaMICtal] 75 mg PO HS 11/28/22 05/27/23 Cyanocobalamin (Vitamin B-12) 1,000 mcg PO DAILY 01/26/23 05/27/23 [Vitamin B-12] Ergocalciferol (Vitamin D2) 1,250 mcg PO ROGEL 01/26/23 05/27/23 [Drisdol (50,000 Iu)] Gabapentin 300 mg PO BID 05/29/23 05/29/23 Previous Rx's Medication Instructions Recorded Loperamide [Imodium] 2 mg PO QID PRN 30 Days #120 cap 02/02/23 OLANZapine ODT [ZyPREXA Zydis] 2.5 mg PO HS 30 Days #30 tab 02/02/23 Allergies Allergy/AdvReac Type Severity Reaction Status Date / Time No Known Allergies Allergy Verified 06/03/23 21:03 Review of Systems ROS Statement: Those systems with pertinent positive or pertinent negative responses have been documented in the HPI. ROS Other: All systems not noted in ROS Statement are negative. Past Medical History Past Medical History: Asthma, Cancer, COPD, GERD/Reflux, Memory Impairment, Musculoskeletal Disorder, Osteoarthritis (OA), Sleep Apnea/CPAP/BIPAP Additional Past Medical History / Comment(s): PT STATES SOME MEMORY PROBLEMS AND LEARNING DISABILITY, HAS FRIEND WHO HELPS HER WITH MEDICATIONS AND APPTS., STATES MUSCLE SPASMS, BACK PROBLEMS WITH DISC DISEASE, ANEMIA, URINARY URGENCY, PROBLEMS WITH DIARRHEA & CONSTIPATION.Pancreatic CA diagnosed August 2022 History of Any Multi-Drug Resistant Organisms: None Reported Past Surgical History: Section, Cholecystectomy, Hysterectomy Additional Past Surgical History / Comment(s): 2 C-SECTIONS, PARTIAL HYSTERE CTOMY, BERNADETTE REMOVED. Past Anesthesia/Blood Transfusion Reactions: Motion Sickness Additional Past Anesthesia/Blood Transfusion Reaction / Comment(s): STATES DIFFICULTY WAKING UP AFTER ANESTHESIA Past Psychological History: Anxiety, Depression Smoking Status: Former smoker Past Alcohol Use History: None Reported Past Drug Use History: None Reported - Past Family History Mother Family Medical History: Cancer Additional Family Medical History / Comment(s): LUNG AND BRAIN CA General Exam Limitations: no limitations General appearance: alert, in no apparent distress Head exam: Present: atraumatic, normocephalic Eye exam: Present: normal appearance, PERRL ENT exam: Present: mucous membranes dry Neck exam: Present: normal inspection. Absent: tenderness, meningismus Respiratory exam: Present: normal lung sounds bilaterally. Absent: respiratory distress, wheezes Cardiovascular Exam: Present: regular rate, normal rhythm GI/Abdominal exam: Present: soft, tenderness. Absent: distended Extremities exam: Present: normal inspection, normal capillary refill. Absent: calf tenderness Neurological exam: Present: alert, oriented X3 Psychiatric exam: Present: normal affect, normal mood Skin exam: Present: warm, dry, intact Course Vital Signs 06/03/23 20:58 Temperature 99.4 F Pulse Rate 86 Respiratory 18 Rate Blood Pressure 145/92 O2 Sat by Pulse 98 Oximetry - Reevaluation(s) Reevaluation #1: 06/03/23 22:45 Request has been made for blood culture results from [facility] Medical Decision Making - Medical Decision Making Was pt. sent in by a medical professional or institution (, PA, LADLE POURER, urgent care, hospital, or assisted...) When possible be specific @ -No Did you speak to anyone other than the patient for history (EMS, parent, family, police, friend...)? What history was obtained from this source @ -No Did you review nursing and triage notes (agree or disagree)? Why? @ -I reviewed and agree with nursing and triage notes Were old charts reviewed (outside hosp., previous admission, EMS record, old EKG, old radiological studies, urgent care reports/EKG's, assisted records)? Report findings @ -No old charts were reviewed Differential Diagnosis @ -Neutropenic fever, bacteremia, sepsis EKG interpreted by me (3pts min.). @ -As above X-rays interpreted by me (1pt min.). @ -[Chest x-ray negative for consolidated pneumonia CT interpreted by me (1pt min.). @ -None done U/S interpreted by me (1pt. min.). @ -None done What testing was considered but not performed or refused? (CT, X-rays, U/S, labs)? Why? @ -None What meds were considered but not given or refused? Why? @ -None Did you discuss the management of the patient with other professionals (professionals i.e. , PA, LADLE POURER, lab, RT, psych nurse, social insurance analyst, turnstile collector, teacher, special assets officer, pillowcase folder)? Give summary @ -Discussed with Dr. Leal who will admit. Was smoking cessation discussed for >3mins.? @ -No Was critical care preformed (if so, how long)? @ -No Were there social determinants of health that impacted care today? How? (Homelessness, low income, unemployed, alcoholism, drug addiction, transportation, low edu. Level, literacy, decrease access to med. care, half-way, rehab)? @ -No Was there de-escalation of care discussed even if they declined (Discuss DNR or withdrawal of care, Hospice)? DNR status @ -No What co-morbidities impacted this encounter? (DM, HTN, Smoking, COPD, CAD, Cancer, CVA, ARF, Chemo, Hep., AIDS, mental health diagnosis, sleep apnea, morbid obesity)? @Pancreatic cancer on chemotherapy Was patient admitted / discharged? Hospital course, mention meds given and route, prescriptions, significant lab abnormalities, going to OR and other pertinent info. @57-year-old female with fever, positive blood culture. Blood culture results have been requested from [facility], pending. Repeat cultures obtained in the emergency department. Patient has normal white blood cell count, she is not neutropenic. Hemoglobin is stable. She has a normal lactic acid. Patient will be covered with broad-spectrum antibiotics and admitted awaiting repeat cultures. Infectious disease placed on consult. Undiagnosed new problem with uncertain prognosis? @ -No Drug Therapy requiring intensive monitoring for toxicity (Heparin, Nitro, Insulin, Cardizem)? @ -No Were any procedures done? @ -No Diagnosis/symptom? @ -Bacteremia on chemotherapy Acute, or Chronic, or Acute on Chronic? @ -Acute Uncomplicated (without systemic symptoms) or Complicated (systemic symptoms)? @ -Default Side effects of treatment? @ -No Exacerbation, Progression, or Severe Exacerbation? @ -No Poses a threat to life or bodily function? How? (Chest pain, USA, CT, pneumonia, PE, COPD, DKA, ARF, appy, cholecystitis, CVA, Diverticulitis, Homicidal, Suicidal, threat to staff... and all critical care pts) @ -yes Sepsis - Lab Data Result diagrams: 06/03/23 22:17 06/03/23 22:17 Lab Results 06/03/23 06/03/23 06/03/23 Range/Units 22:17 22:17 22:17 WBC 5.4 (3.8-10.6) k/uL RBC 3.07 L (3.80-5.40) m/uL Hgb 9.0 L (11.4-16.0) gm/dL Hct 28.5 L (34.0-46.0) % MCV 92.9 (80.0-100.0) fL MCH 29.3 (25.0-35.0) pg MCHC 31.6 (31.0-37.0) g/dL RDW 17.3 H (11.5-15.5) % Plt Count 103 L (150-450) k/uL MPV 8.6 Neutrophils % 63 % Lymphocytes % 25 % Monocytes % 8 % Eosinophils % 1 % Basophils % 1 % Neutrophils # 3.4 (1.3-7.7) k/uL Lymphocytes # 1.3 (1.0-4.8) k/uL Monocytes # 0.4 (0-1.0) k/uL Eosinophils # 0.1 (0-0.7) k/uL Basophils # 0.0 (0-0.2) k/uL Anisocytosis Slight Sodium 139 (137-145) mmol/L Potassium 3.8 (3.5-5.1) mmol/L Chloride 110 H (98-107) mmol/L Carbon Dioxide 27 (22-30) mmol/L Anion Gap 2 mmol/L BUN 11 (7-17) mg/dL Creatinine 0.59 (0.52-1.04) mg/dL Est GFR (CKD-EPI)AfAm >90 (>60 ml/min/1.73 sqM) Est GFR (CKD-EPI)NonAf >90 (>60 ml/min/1.73 sqM) Glucose 101 H (74-99) mg/dL Plasma Lactic Acid Amk 1.2 (0.7-2.0) mmol/L Calcium 8.9 (8.4-10.2) mg/dL Total Bilirubin 0.3 (0.2-1.3) mg/dL AST 85 H (14-36) U/L ALT 53 H (4-34) U/L Alkaline Phosphatase 114 (38-126) U/L Total Protein 5.0 L (6.3-8.2) g/dL Albumin 2.6 L (3.5-5.0) g/dL Disposition Clinical Impression: Dehydration, Primary pancreatic adenocarcinoma, Fever, Bacteremia Disposition: ADMITTED IP TO THIS [facility] Condition: Stable Is patient prescribed a controlled substance at d/c from ED?: No Referrals: Michael Leal MD [Primary Care Provider] - 1-2 days Time of Disposition: 22:50
[2023-06-03 22:32] LABS: Anisocytosis Slight; Basophils % (A) 1 %; Eosinophils # (A) 0.1 k/uL (0-0.7); Eosinophils % (A) 1 %; HCT 28.5 % (34.0-46.0); Lymphocytes # (A) 1.3 k/uL (1.0-4.8); Lymphocytes % (A) 25 %; MCH 29.3 pg (25.0-35.0); MCHC 31.6 g/dL (31.0-37.0); MCV 92.9 fL (80.0-100.0); Mean Platelet Volume 8.6; Monocytes # (A) 0.4 k/uL (0-1.0); Monocytes % (A) 8 %; Neutrophils # (A) 3.4 k/uL (1.3-7.7); Neutrophils % (A) 63 %; Platelet Count 103 k/uL (150-450); RBC 3.07 m/uL (3.80-5.40); RDW 17.3 % (11.5-15.5); WBC 5.4 k/uL (3.8-10.6)
[2023-06-03 22:36] LABS: ALT 53 U/L (4-34); AST 85 U/L (14-36); African American GFR (CKD) >90 (>60 ml/min/1.73 sqM); Albumin 2.6 g/dL (3.5-5.0); Alkaline Phosphatase 114 U/L (38-126); Anion Gap 2 mmol/L; Blood Urea Nitrogen 11 mg/dL (7-17); Calcium 8.9 mg/dL (8.4-10.2); Carbon Dioxide 27 mmol/L (22-30); Chloride 110 mmol/L (98-107); Glucose 101 mg/dL (74-99); Non-African American GFR(CKD) >90 (>60 ml/min/1.73 sqM); Potassium 3.8 mmol/L (3.5-5.1); Sodium 139 mmol/L (137-145); Total Bilirubin 0.3 mg/dL (0.2-1.3)
[2023-06-03] MEDS ORDERED: NALOXONE 0.4 MG/ML 1 ML VIAL IV PRN (22:44)
--- NOTE | 2023-06-03 22:54 | XR ---
EXAM: XR Chest, 2 Views CLINICAL HISTORY: ITS.REASON XR Reason: fever TECHNIQUE: Frontal and lateral views of the chest. COMPARISON: No relevant prior studies available. FINDINGS: Lungs: Unremarkable. No consolidation. Pleural space: Unremarkable. No pneumothorax. Heart: Unremarkable. No cardiomegaly. Mediastinum: Unremarkable. Normal mediastinal contour. Bones/joints: Unremarkable. No acute fracture. Tubes, lines and devices: RIGHT Port-A-Cath terminates in the SVC. IMPRESSION: No acute findings in the chest.
[2023-06-03] MEDS: SODIUM CHLORIDE 0.9% 1,000 ML IV STA (22:55)
[2023-06-03] MEDS: CEFEPIME 2 GM in SODIUM CHLORIDE 0.9% 100 ML IVPB SCH (22:55)
[2023-06-03] MEDS: VANCOMYCIN 1,000 MG in SODIUM CHLORIDE 0.9% 250 ML IVPB ONE (22:55)
[2023-06-04] MEDS: VANCOMYCIN 1,000 MG in SODIUM CHLORIDE 0.9% 250 ML IVPB SCH (11:44)
[2023-06-04] MEDS: ACETAMINOPHEN TAB 325 MG TAB PO PRN (11:50)
[2023-06-04] MEDS ORDERED: NON FORMULARY DRUG (Albuterol Inhaler 90 MCG Puff) INHALATION PRN (12:43)
[2023-06-04] MEDS ORDERED: LORazepam 0.5 MG TAB PO PRN (12:43)
[2023-06-04] MEDS ORDERED: LOPERAMIDE 2 MG CAP PO PRN (12:43)
[2023-06-04] MEDS: MIDODRINE 5 MG TAB PO SCH ×2 (14:40→17:03)
[2023-06-04] MEDS: ASPIRIN 81 MG PO SCH (14:42)
[2023-06-04] MEDS: GABAPENTIN 300 MG CAP PO SCH (14:42)
[2023-06-04] MEDS: ONDANSETRON 4 MG TAB PO PRN (15:12)
[2023-06-04] MEDS: IPRATROPIUM-ALBUTEROL 3 ML NEB INHALATION PRN (15:23)
--- NOTE | 2023-06-04 17:03 | P.HPIM ---
History of Present Illness H&P Date: 06/04/23 Luz Marina Mallory, is a 57-year-old female who presented to [facility] emergency room with a chief complaint of fever. patient has a known history of pancreatic cancer, and is receiving chemotherapy, she had the blood culture as outpatient that was positive, patient was called to go to emergency room by her oncologist. she was evaluated in the emergency room vital examination on presentation revealed a temperature of 99.4 pulse 86 respiration 18 and blood pressure 145/92 pulse ox 98% on room air Laboratory data revealed a white blood count of 5.4 hemoglobin 9.0 platelet count 103 BUN 11 creatinine 0.59 AST 85 ALT 53 Testing in the emergency room revealed chest x-ray done in the emergency room revealed no acute findings Patient was admitted to medical floor for further evaluation and treatment, oncology consultation and infectious disease consultation were requested. Past Medical History Past Medical History: Asthma, Cancer, COPD, GERD/Reflux, Memory Impairment, Musculoskeletal Disorder, Osteoarthritis (OA), Sleep Apnea/CPAP/BIPAP Additional Past Medical History / Comment(s): PT STATES SOME MEMORY PROBLEMS AND LEARNING DISABILITY, HAS FRIEND WHO HELPS HER WITH MEDICATIONS AND APPTS., STATES MUSCLE SPASMS, BACK PROBLEMS WITH DISC DISEASE, ANEMIA, URINARY URGENCY, PROBLEMS WITH DIARRHEA & CONSTIPATION.Pancreatic CA diagnosed August 2022, started chemo on 11/03/22 History of Any Multi-Drug Resistant Organisms: None Reported Past Surgical History: Section, Cholecystectomy, Hysterectomy Additional Past Surgical History / Comment(s): 2 C-SECTIONS, PARTIAL HYSTERECTOMY, BERNADETTE REMOVED. 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 smoker Past Alcohol Use History: None Reported Additional Past Alcohol Use History / Comment(s): smoked at a very young age, from [age] to 12 years old Past Drug Use History: None Reported - Past Family History Mother Family Medical History: Cancer Additional Family Medical History / Comment(s): LUNG AND BRAIN CA Medications and Allergies Home Medications Medication Instructions Recorded Confirmed Type Albuterol Inhaler [Ventolin Hfa 1 - 2 puff INHALATION RT-Q6H PRN 11/03/22 06/04/23 History Inhaler] Aspirin EC [Ecotrin Low Dose] 81 mg PO DAILY 11/03/22 06/04/23 History DULoxetine HCL [Cymbalta] 30 mg PO BID 11/03/22 06/04/23 History Ferrous Sulfate [Iron] 325 mg PO DAILY 11/03/22 06/04/23 History Fluticasone/Umeclidin/Vilanter 1 puff INHALATION RT-DAILY 11/03/22 06/04/23 History [Trelegy Ellipta 100-62.5-25] Metoprolol Tartrate [Lopressor] 25 mg PO BID 11/03/22 06/04/23 History Midodrine HCl 5 mg PO TID 11/03/22 06/04/23 History Potassium Chloride ER [K-Dur 20] 20 meq PO DAILY 11/03/22 06/04/23 History calcitrioL 0.25 mcg PO DAILY 11/03/22 06/04/23 History Budesonide [Pulmicort] 0.5 mg INHALATION RT-BID 11/28/22 06/04/23 History Cholestyramine (with Sugar) 4 gm PO BID 11/28/22 06/04/23 History [Cholestyramine Powder] Famotidine [Pepcid] 40 mg PO DAILY 11/28/22 06/04/23 History Ipratropium-Albuterol Nebulize 3 ml INHALATION RT-Q6H PRN 11/28/22 06/04/23 History [Duoneb 0.5 mg-3 mg/3 ml Soln] LORazepam [Ativan] 0.5 mg PO Q8HR PRN 11/28/22 06/04/23 History Ondansetron [Zofran] 4 mg PO DAILY PRN 11/28/22 06/04/23 History Rosuvastatin Calcium 5 mg PO HS 11/28/22 06/04/23 History lamoTRIgine [LaMICtal] 75 mg PO HS 11/28/22 06/04/23 History Cyanocobalamin (Vitamin B-12) 1,000 mcg PO DAILY 01/26/23 06/04/23 History [Vitamin B-12] Ergocalciferol (Vitamin D2) 1,250 mcg PO Q7D 01/26/23 06/04/23 History [Drisdol (50,000 Iu)] Loperamide [Imodium] 2 mg PO QID PRN 30 Days #120 cap 02/02/23 06/04/23 Rx OLANZapine ODT [ZyPREXA Zydis] 2.5 mg PO HS 30 Days #30 tab 02/02/23 06/04/23 Rx Gabapentin 300 mg PO TID 05/29/23 06/04/23 History Pantoprazole [Protonix] 40 mg PO DAILY 06/04/23 06/04/23 History Sucralfate [Carafate] 1 gm PO BID 06/04/23 06/04/23 History Allergies Allergy/AdvReac Type Severity Reaction Status Date / Time No Known Allergies Allergy Verified 06/04/23 08:45 Physical Exam Vitals: Vital Signs Temp Pulse Pulse Resp BP BP Pulse Ox 06/04/23 07:17 99.0 F 86 20 148/84 96 06/04/23 00:32 98.8 F 73 16 147/76 98 06/04/23 00:10 74 18 147/95 99 06/03/23 23:30 156/106 96 06/03/23 23:05 98 06/03/23 23:00 16 06/03/23 20:58 99.4 F 86 18 145/92 98 Intake and Output 06/03/23 06/04/23 06/04/23 22:59 06:59 14:59 Other: Voiding Method Toilet Toilet Weight 53.524 kg 53.524 kg In general patient is alert and oriented x 3 in no distress HEENT head normocephalic and atraumatic Neck is supple no JVD no goiter no lymphadenopathy no carotid bruit Chest examination is clear to auscultation no crackles no wheezing Cardiac exam reveals regular heart sounds S1 and S2 no gallops no murmurs Abdomen is soft nontender no organomegaly with normal bowel sounds Extremity exam reveals no edema no cyanosis or clubbing Neurological examination reveals no gross focal deficits Results CBC & Chem 7: 06/03/23 22:17 06/03/23 22:17 Labs: Abnormal Lab Results - Last 24 Hours (Table) 06/03/23 06/03/23 Range/Units 22:17 22:17 RBC 3.07 L (3.80-5.40) m/uL Hgb 9.0 L (11.4-16.0) gm/dL Hct 28.5 L (34.0-46.0) % RDW 17.3 H (11.5-15.5) % Plt Count 103 L (150-450) k/uL Chloride 110 H (98-107) mmol/L Glucose 101 H (74-99) mg/dL AST 85 H (14-36) U/L ALT 53 H (4-34) U/L Total Protein 5.0 L (6.3-8.2) g/dL Albumin 2.6 L (3.5-5.0) g/dL Thrombosis Risk Factor Assmnt - Choose All That Apply Any of the Below Risk Factors Present?: Yes Each Factor Represents 1 point: Age 41-60 years, Obesity (BMI >25) Other Risk Factors: Yes Each Risk Factor Represents 2 Points: Malignancy Other congenital or acquired thrombophilia - If yes, enter type in comment: No Thrombosis Risk Factor Assessment Total Risk Factor Score: 4 Thrombosis Risk Factor Assessment Level: Moderate Risk Assessment and Plan Plan: febrile illness, with positive blood culture as outpatient pancreatic cancer maintained on chemotherapy Underlying history of COPD Underlying history of obstructive sleep apnea Underlying history of underlying history of osteoarthritis underlying history of depression with anxiety disorder Underlying history of hypertension Underlying history of hyperlipidemia At this time patient is admitted to medical floor She was started on IV antibiotic cefepime Home medications reviewed and reordered Infectious disease consultation and oncology consultation requested For DVT prophylaxis subcu Shane Will follow closely
[2023-06-04] MEDS: SUCRALFATE 1 GM TAB PO SCH (17:06)
[2023-06-04] MEDS: BUDESONIDE 0.5 MG/2 ML NEBU INHALATION SCH (18:25)
[2023-06-04] MEDS: lamoTRIgine 25 MG TAB PO SCH (20:33)
[2023-06-04] MEDS: DULoxetine HCL 30 MG CAPSULE.DR PO SCH (20:34)
[2023-06-04] MEDS: METOPROLOL TARTRATE 25 MG TAB PO SCH (20:34)
[2023-06-04] MEDS: CHOLESTYRAMINE (WITH SUGAR) 4 GM PACKET PO SCH (20:34)
[2023-06-04] MEDS: ATORVASTATIN 10 MG TAB PO SCH (20:34)
[2023-06-04] MEDS: OLANZapine ODT 5 MG TAB PO SCH (20:34)
[2023-06-05 06:28] LABS: ALT 40 U/L (4-34); AST 57 U/L (14-36); African American GFR (CKD) >90 (>60 ml/min/1.73 sqM); Albumin 2.3 g/dL (3.5-5.0); Albumin/Globulin Ratio 0.9; Alkaline Phosphatase 104 U/L (38-126); Anion Gap 3 mmol/L; Blood Urea Nitrogen 9 mg/dL (7-17); Calcium 8.9 mg/dL (8.4-10.2); Carbon Dioxide 23 mmol/L (22-30); Chloride 112 mmol/L (98-107); Globulin 2.5 g/dL; Glucose 91 mg/dL (74-99); Non-African American GFR(CKD) >90 (>60 ml/min/1.73 sqM); Potassium 3.9 mmol/L (3.5-5.1); Sodium 138 mmol/L (137-145); Total Bilirubin 0.4 mg/dL (0.2-1.3); Total Protein 4.8 g/dL (6.3-8.2)
[2023-06-05] MEDS: IPRATROPIUM 0.5 MG/2.5 ML NEBU INHALATION SCH (07:41)
--- NOTE | 2023-06-05 07:54 | P.CONS ---
History of Present Illness - Reason for Consult Consult date: 06/04/23 - History of Present Illness Patient is a 57-year-old female with a past medical history significant for COPD anxiety depression, pancreatic cancer on chemotherapy apparently recently admitted at [facility] with a GI bleed requiring endoscopy and apparently the patient did have a blood culture done at that facility which was positive and the patient was called and to go back to the hospital because of the positive blood culture, patient also complaining of fever 100.4 degrees following hide at home and feeling weak patient denies having any headache or URI symptoms denies any chest pain or shortness of breath she did have some cough but not bring up any sputum nausea but no vomiting no abdominal pain or any diarrhea or presentation to the hospital patient did have a low-grade fever of 99.4 F patient was not tachycardic hypotensive or hypoxic and no need for supplemental oxygen white count was 5.4, creatinine 0.59 liver isms mildly elevated blood cultures obtained which are currently pending patient was started on cefepime and vancomycin infectious disease was consulted for further management of antibiotic therapy patient did have a chest x-ray that was reported negative for acute findings, patient did have a Mediport however denies having any pain redness or difficulty accessing the Mediport site per patient Past Medical History Past Medical History: Asthma, Cancer, COPD, GERD/Reflux, Memory Impairment, Musculoskeletal Disorder, Osteoarthritis (OA), Sleep Apnea/CPAP/BIPAP Additional Past Medical History / Comment(s): PT STATES SOME MEMORY PROBLEMS AND LEARNING DISABILITY, HAS FRIEND WHO HELPS HER WITH MEDICATIONS AND APPTS., STATES MUSCLE SPASMS, BACK PROBLEMS WITH DISC DISEASE, ANEMIA, URINARY URGENCY, PROBLEMS WITH DIARRHEA & CONSTIPATION.Pancreatic CA diagnosed August 2022, started chemo on 11/03/22 History of Any Multi-Drug Resistant Organisms: None Reported Past Surgical History: Section, Cholecystectomy, Hysterectomy Additional Past Surgical History / Comment(s): 2 C-SECTIONS, PARTIAL HYSTERECTOMY, BERNADETTE REMOVED. 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 Past Alcohol Use History: None Reported Additional Past Alcohol Use History / Comment(s): smoked at a very young age, from [age] to 12 years old Past Drug Use History: None Reported - Past Family History Mother Family Medical History: Cancer Additional Family Medical History / Comment(s): LUNG AND BRAIN CA Medications and Allergies Home Medications Medication Instructions Recorded Confirmed Type Albuterol Inhaler [Ventolin Hfa 1 - 2 puff INHALATION RT-Q6H PRN 11/03/22 06/04/23 History Inhaler] Aspirin EC [Ecotrin Low Dose] 81 mg PO DAILY 11/03/22 06/04/23 History DULoxetine HCL [Cymbalta] 30 mg PO BID 11/03/22 06/04/23 History Ferrous Sulfate [Iron] 325 mg PO DAILY 11/03/22 06/04/23 History Fluticasone/Umeclidin/Vilanter 1 puff INHALATION RT-DAILY 11/03/22 06/04/23 History [Trelegy Ellipta 100-62.5-25] Metoprolol Tartrate [Lopressor] 25 mg PO BID 11/03/22 06/04/23 History Midodrine HCl 5 mg PO TID 11/03/22 06/04/23 History Potassium Chloride ER [K-Dur 20] 20 meq PO DAILY 11/03/22 06/04/23 History calcitrioL 0.25 mcg PO DAILY 11/03/22 06/04/23 History Budesonide [Pulmicort] 0.5 mg INHALATION RT-BID 11/28/22 06/04/23 History Cholestyramine (with Sugar) 4 gm PO BID 11/28/22 06/04/23 History [Cholestyramine Powder] Famotidine [Pepcid] 40 mg PO DAILY 11/28/22 06/04/23 History Ipratropium-Albuterol Nebulize 3 ml INHALATION RT-Q6H PRN 11/28/22 06/04/23 History [Duoneb 0.5 mg-3 mg/3 ml Soln] LORazepam [Ativan] 0.5 mg PO Q8HR PRN 11/28/22 06/04/23 History Ondansetron [Zofran] 4 mg PO DAILY PRN 11/28/22 06/04/23 History Rosuvastatin Calcium 5 mg PO HS 11/28/22 06/04/23 History lamoTRIgine [LaMICtal] 75 mg PO HS 11/28/22 06/04/23 History Cyanocobalamin (Vitamin B-12) 1,000 mcg PO DAILY 01/26/23 06/04/23 History [Vitamin B-12] Ergocalciferol (Vitamin D2) 1,250 mcg PO Q7D 01/26/23 06/04/23 History [Drisdol (50,000 Iu)] Loperamide [Imodium] 2 mg PO QID PRN 30 Days #120 cap 02/02/23 06/04/23 Rx OLANZapine ODT [ZyPREXA Zydis] 2.5 mg PO HS 30 Days #30 tab 02/02/23 06/04/23 Rx Gabapentin 300 mg PO TID 05/29/23 06/04/23 History Pantoprazole [Protonix] 40 mg PO DAILY 06/04/23 06/04/23 History Sucralfate [Carafate] 1 gm PO BID 06/04/23 06/04/23 History Allergies Allergy/AdvReac Type Severity Reaction Status Date / Time No Known Allergies Allergy Verified 06/04/23 08:45 Physical Exam Vitals: Vital Signs Temp Pulse Pulse Resp BP BP Pulse Ox 06/04/23 07:17 99.0 F 86 20 148/84 96 06/04/23 00:32 98.8 F 73 16 147/76 98 06/04/23 00:10 74 18 147/95 99 06/03/23 23:30 156/106 96 06/03/23 23:05 98 06/03/23 23:00 16 06/03/23 20:58 99.4 F 86 18 145/92 98 Intake and Output 06/03/23 06/04/23 06/04/23 22:59 06:59 14:59 Other: Voiding Method Toilet Toilet # Voids 1 # Bowel Movements 1 Weight 53.524 kg 53.524 kg Results CBC & Chem 7: 06/03/23 22:17 06/05/23 05:36 Labs: Abnormal Lab Results - Last 24 Hours (Table) 06/03/23 06/03/23 Range/Units 22:17 22:17 RBC 3.07 L (3.80-5.40) m/uL Hgb 9.0 L (11.4-16.0) gm/dL Hct 28.5 L (34.0-46.0) % RDW 17.3 H (11.5-15.5) % Plt Count 103 L (150-450) k/uL Chloride 110 H (98-107) mmol/L Glucose 101 H (74-99) mg/dL AST 85 H (14-36) U/L ALT 53 H (4-34) U/L Total Protein 5.0 L (6.3-8.2) g/dL Albumin 2.6 L (3.5-5.0) g/dL Assessment and Plan Plan: 1patient presented to hospital with the positive blood culture from the outside facility with the patient was admitted for a GI bleed we will try to get more information from the outside facility patient did have a low-grade fever and did have a port could be the source 2-blood culture has been repeated and we will check inflammatory markers 3-patient to continue with the cefepime and vancomycin while waiting for the workup to be completed We will follow on clinical condition and cultures to further adjust medication if needed Thank you for this consultation we will follow the patient along with you Dictation was produced using [employer] dictation software. please excuse any grammatical, word or spelling errors. Time with Patient: Greater than 30
[2023-06-05] MEDS: FAMOTIDINE 20 MG TAB PO SCH (08:58)
[2023-06-05] MEDS: CYANOCOBALAMIN 500 MCG TAB PO SCH (08:58)
[2023-06-05] MEDS: FERROUS SULFATE 325 MG TAB PO SCH (08:58)
[2023-06-05] MEDS: PANTOPRAZOLE 40 MG TABLET PO SCH (08:58)
[2023-06-05] MEDS: POTASSIUM CHLORIDE ER 20 MEQ TAB.ER PO SCH (08:59)
[2023-06-05] MEDS: ENOXAPARIN 40 MG/0.4 ML SYRINGE SQ SCH (08:59)
[2023-06-05 09:00] LABS: Basophils # (A) 0.03 X 10*3/uL (0.00-0.10); Basophils % (A) 0.5 %; Eosinophils # (A) 0.15 X 10*3/uL (0.04-0.35); Eosinophils % (A) 2.4 %; HCT 31.1 % (37.2-46.3); HGB 9.5 g/dL (12.0-15.0); Lymphocytes # (A) 1.17 X 10*3/uL (0.90-5.00); Lymphocytes % (A) 18.4 %; MCH 29.5 pg (27.0-32.0); MCHC 30.5 g/dL (32.0-37.0); MCV 96.6 FL (80.0-97.0); Mean Platelet Volume 11.4 FL (9.5-12.2); Monocytes # (A) 0.78 X 10*3/uL (0.20-1.00); Monocytes % (A) 12.3 %; NRBC Per 100 WBC 0 X 10*3/uL (0.00-0.01); Neutrophils % (A) 64.4 %; Platelet Count 118 X 10*3/uL (140-440); RBC 3.22 X 10*6/uL (4.10-5.20); RDW 18.1 % (11.5-14.5); WBC 6.36 X 10*3/uL (4.50-10.00)
--- NOTE | 2023-06-05 09:12 | P.PN ---
Subjective Progress Note Date: 06/05/23 Luz Marina Mallory, is a 57-year-old female who presented to [facility] emergency room with a chief complaint of fever. patient has a known history of pancreatic cancer, and is receiving chemotherapy, she had the blood culture as outpatient that was positive, patient was called to go to emergency room by her oncologist. she was evaluated in the emergency room vital examination on presentation revealed a temperature of 99.4 pulse 86 respiration 18 and blood pressure 145/92 pulse ox 98% on room air Laboratory data revealed a white blood count of 5.4 hemoglobin 9.0 platelet count 103 BUN 11 creatinine 0.59 AST 85 ALT 53 Testing in the emergency room revealed chest x-ray done in the emergency room revealed no acute findings Patient was admitted to medical floor for further evaluation and treatment, oncology consultation and infectious disease consultation were requested. on 06/05/2023 patient is alert and oriented 3. Infectious disease service is following patient started on IV antibiotics cefepime and vancomycin.White blood cell 6.36 hemoglobin 9.5 creatinine 0.60.current vital signs temp 98.5, heart rate 77, respiratory rate 16, blood pressure 135/82 with a pulse ox of 99% on room air awaiting oncology input Dr. Arana's group will be covering for 06/06/2023 for to 06/07/2023 Objective - Vital Signs Vital signs: Vital Signs Temp 98.5 F 06/05/23 07:15 Pulse 72 06/05/23 07:57 Resp 16 06/05/23 07:15 BP 135/82 06/05/23 07:15 Pulse Ox 99 06/05/23 07:15 FiO2 Intake & Output 06/04/23 06/05/23 06/05/23 18:59 06:59 18:59 Intake Total 590 Balance 590 Intake: Oral 590 Other: Voiding Method Toilet Toilet # Voids 2 3 1 # Bowel Movements 1 # Emeses 1 - Exam In general patient is alert and oriented x 3 in no distress HEENT head normocephalic and atraumatic Neck is supple no JVD no goiter no lymphadenopathy no carotid bruit Chest examination is clear to auscultation no crackles no wheezing Cardiac exam reveals regular heart sounds S1 and S2 no gallops no murmurs Abdomen is soft nontender no organomegaly with normal bowel sounds Extremity exam reveals no edema no cyanosis or clubbing Neurological examination reveals no gross focal deficits - Labs CBC & Chem 7: 06/05/23 05:36 06/05/23 05:36 Labs: Abnormal Lab Results - Last 24 Hours (Table) 06/05/23 06/05/23 Range/Units 05:36 05:36 RBC 3.22 L (4.10-5.20) X 10*6/uL Hgb 9.5 L (12.0-15.0) g/dL Hct 31.1 L (37.2-46.3) % MCHC 30.5 L (32.0-37.0) g/dL RDW 18.1 H (11.5-14.5) % Plt Count 118 L (140-440) X 10*3/uL Immature Gran # 0.13 H (0.00-0.04) X 10*3/uL Chloride 112 H (98-107) mmol/L AST 57 H (14-36) U/L ALT 40 H (4-34) U/L Total Protein 4.8 L (6.3-8.2) g/dL Albumin 2.3 L (3.5-5.0) g/dL Microbiology - Last 24 Hours (Table) 06/03/23 21:48 Blood Culture - Preliminary Blood 06/03/23 21:33 Blood Culture - Preliminary Blood Assessment and Plan Plan: febrile illness, with positive blood culture as outpatient pancreatic cancer maintained on chemotherapy Underlying history of COPD Underlying history of obstructive sleep apnea Underlying history of underlying history of osteoarthritis underlying history of depression with anxiety disorder Underlying history of hypertension Underlying history of hyperlipidemia At this time patient is admitted to medical floor She was started on IV antibiotic cefepime Home medications reviewed and reordered Infectious disease consultation and oncology consultation requested For DVT prophylaxis subcu Lovenox Will follow closely
--- NOTE | 2023-06-05 13:23 | P.PN ---
Subjective Progress Note Date: 06/05/23 Principal diagnosis: Reason for follow-up is fever and positive blood culture Patient is a 57-year-old female with a past medical history significant for COPD anxiety depression, pancreatic cancer on chemotherapy apparently recently admitted at [facility] with a GI bleed requiring endoscopy and apparently the patient did have a blood culture done at that facility which was positive, patient also have a low-grade fever for the patient presented to hospital. On today's visit that is 06/05/2023, Patient is afebrile patient is currently on room air and denies having any shortness of breath, the patient denies any chest pain or cough, the patient denies any nausea vomiting did not have any abdominal pain and no diarrhea, feeling better. Patient white count is 6.36, creatinine 0.60 blood cultures pending Objective - Vital Signs Vital signs: Vital Signs Temp 98.5 F 06/05/23 07:15 Pulse 76 06/05/23 11:26 Resp 16 06/05/23 07:15 BP 135/82 06/05/23 07:15 Pulse Ox 99 06/05/23 07:15 FiO2 Intake & Output 06/04/23 06/05/23 06/05/23 18:59 06:59 18:59 Intake Total 590 Balance 590 Intake: Oral 590 Other: Voiding Method Toilet Toilet # Voids 2 3 1 # Bowel Movements 1 # Emeses 1 - Exam GENERAL DESCRIPTION: Middle-aged female lying in bed in no distress RESPIRATORY SYSTEM: Unlabored breathing , decreased breath sounds at bases HEART: S1 S2 regular rate and rhythm , ABDOMEN: Soft , no tenderness EXTREMITIES: No edema feet - Labs CBC & Chem 7: 06/05/23 05:36 06/05/23 05:36 Labs: Abnormal Lab Results - Last 24 Hours (Table) 06/05/23 06/05/23 Range/Units 05:36 05:36 RBC 3.22 L (4.10-5.20) X 10*6/uL Hgb 9.5 L (12.0-15.0) g/dL Hct 31.1 L (37.2-46.3) % MCHC 30.5 L (32.0-37.0) g/dL RDW 18.1 H (11.5-14.5) % Plt Count 118 L (140-440) X 10*3/uL Immature Gran # 0.13 H (0.00-0.04) X 10*3/uL Chloride 112 H (98-107) mmol/L AST 57 H (14-36) U/L ALT 40 H (4-34) U/L Total Protein 4.8 L (6.3-8.2) g/dL Albumin 2.3 L (3.5-5.0) g/dL Microbiology - Last 24 Hours (Table) 06/03/23 21:48 Blood Culture - Preliminary Blood 06/03/23 21:33 Blood Culture - Preliminary Blood Assessment and Plan (1) Bacteremia Current Visit: Yes Status: Acute Code(s): R78.81 - BACTEREMIA SNOMED Code(s): 3933841 (2) Fever Current Visit: Yes Status: Acute Code(s): R50.9 - FEVER, UNSPECIFIED SNOMED Code(s): 053305142 Plan: 1patient presented to hospital with the positive blood culture from the outside facility with the patient was admitted for a GI bleed we will try to get more information from the outside facility patient did have a low-grade fever and did have a port could be the source 2-blood culture has been repeated which are currently pending blood culture from the [facility] has been reported as corynebacterium species possible contamination 3-patient to continue with the cefepime however will discontinue vancomycin Dictation was produced using [employer] dictation software. please excuse any grammatical, word or spelling errors. Time with Patient: Less than 30
--- NOTE | 2023-06-05 20:41 | P.CONS ---
History of Present Illness - Reason for Consult Consult date: 06/05/23 pancreatic cancer Requesting physician: Michael Leal - Chief Complaint fever - History of Present Illness Ms. Mallory is a pleasant female who is currently undergoing treatment for pancreatic adenocarcinoma with Oncologist Dr. Murray. She was initially evaluated by her PCP in 08/15 because of elevated liver enzymes. CT AP at [facility] 08/27/22 showed post mastectomy changes, with prominent intra-and extrahepatic biliary ductal dilatation with focal tapering in the region of the head of the pancreas. CXR did not show any significant findings. She was sent to [facility], where she had ERCP with EUS on 09/01/22. 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 Stent was placed. EUS revealed a 3.1 x 2.2 cm mass with significant involvement of the portal vein. Case was presented at the [facility] tumor Board on 09/03/22 and she was deemed not to be a surgical candidate, systemic chemotherapy was recommended and she was referred to Dr. Murray. Pt could not keep her initial appointment on 09/15/22 as she developed vomiting of blood. EGD showed a mucosal erosion next to the stent, which was felt to be the cause. Hgb remained overall stable after a transient drop. She was discharged on PPI and was seen for initial consultation on 09/30/22. She had lost about 130lbs over the previous year, she reported heavy alcohol use, quitting in 2021. She had staging PET scan that showed no evidence of metastatic disease. She started FOLFIRINOX 11/03/22, and completed cycle 5 on 01/20 with G-CSF. Regimen has been dose reduced due to adverse side effects. She started FOLFIRINOX on 11/03/22 and completed 5 cycles, however, due to treatment intoleracne regimen was stopped. She was changed to gemzar and abraxane and started regimen on 02/26/23, and completed cycle 4, day 1 on 05/26. Treatment response CT scan showed stable subcentimeter lung nodules. The pancreatic mass appears to be unchanged, with evidence of involvement of the portal vein. The results of her CT scans were discussed with her and her family. Plan was to continue her current regimen, and referral back to surgical oncology. If they feel that she continues to be not a surgical candidate, we will continue the current regimen for 6 cycles, and then proceed to chemoradiation. Patient states since completing last treatment on 05/26 she began experiencing nausea vomiting and fever. Tmax at home was 100.4. Patient initially presented to [facility] with persisting fever and complaints of dark stool. She was transferred to [facility] for endoscopic evaluation. Patient states gastric ulcers were noted on scope with no active bleed. Patient was subsequently discharged. Due to persisting fever and blood culture that was found to be positive for gram positive bacilli patient was referred back to the ER for further evaluation. Since admission patient is reporting improvement in nausea and vomiting. Tmax 99.9. Continues on IV abx. Patient reports she is better tolerating oral intake and was eating lunch at today's visit. Blood cultures thus far negative. CXR shows no acute findings. Counts are stable, WBC 6.3, hemoglobin 9.5, platelets 118,000. Patient denies any blood in stool or melena since admission/transfer to [facility]. Review of Systems 10 point ROS is negative except as stated in the HPI Past Medical History Past Medical History: Asthma, Cancer, COPD, GERD/Reflux, Memory Impairment, Musculoskeletal Disorder, Osteoarthritis (OA), Sleep Apnea/CPAP/BIPAP Additional Past Medical History / Comment(s): PT STATES SOME MEMORY PROBLEMS AND LEARNING DISABILITY, HAS FRIEND WHO HELPS HER WITH MEDICATIONS AND APPTS., STATES MUSCLE SPASMS, BACK PROBLEMS WITH DISC DISEASE, ANEMIA, URINARY URGENCY, PROBLEMS WITH DIARRHEA & CONSTIPATION.Pancreatic CA diagnosed August 2022, started chemo on 11/03/22 History of Any Multi-Drug Resistant Organisms: None Reported Past Surgical History: Section, Cholecystectomy, Hysterectomy Additional Past Surgical History / Comment(s): 2 C-SECTIONS, PARTIAL HYSTERECTOMY, BERNADETTE REMOVED. 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 [employer] Smoking Status: Former smoker Past Alcohol Use History: None Reported Additional Past Alcohol Use History / Comment(s): smoked at a very young age, from [age] to 12 years old Past Drug Use History: None Reported - Past Family History Mother Family Medical History: Cancer Additional Family Medical History / Comment(s): LUNG AND BRAIN CA Medications and Allergies Home Medications Medication Instructions Recorded Confirmed Type Albuterol Inhaler [Ventolin Hfa 1 - 2 puff INHALATION RT-Q6H PRN 11/03/22 06/04/23 History Inhaler] Aspirin EC [Ecotrin Low Dose] 81 mg PO DAILY 11/03/22 06/04/23 History DULoxetine HCL [Cymbalta] 30 mg PO BID 11/03/22 06/04/23 History Ferrous Sulfate [Iron] 325 mg PO DAILY 11/03/22 06/04/23 History Fluticasone/Umeclidin/Vilanter 1 puff INHALATION RT-DAILY 11/03/22 06/04/23 History [Trelegy Ellipta 100-62.5-25] Metoprolol Tartrate [Lopressor] 25 mg PO BID 11/03/22 06/04/23 History Midodrine HCl 5 mg PO TID 11/03/22 06/04/23 History Potassium Chloride ER [K-Dur 20] 20 meq PO DAILY 11/03/22 06/04/23 History calcitrioL 0.25 mcg PO DAILY 11/03/22 06/04/23 History Budesonide [Pulmicort] 0.5 mg INHALATION RT-BID 11/28/22 06/04/23 History Cholestyramine (with Sugar) 4 gm PO BID 11/28/22 06/04/23 History [Cholestyramine Powder] Famotidine [Pepcid] 40 mg PO DAILY 11/28/22 06/04/23 History Ipratropium-Albuterol Nebulize 3 ml INHALATION RT-Q6H PRN 11/28/22 06/04/23 History [Duoneb 0.5 mg-3 mg/3 ml Soln] LORazepam [Ativan] 0.5 mg PO Q8HR PRN 11/28/22 06/04/23 History Ondansetron [Zofran] 4 mg PO DAILY PRN 11/28/22 06/04/23 History Rosuvastatin Calcium 5 mg PO HS 11/28/22 06/04/23 History lamoTRIgine [LaMICtal] 75 mg PO HS 11/28/22 06/04/23 History Cyanocobalamin (Vitamin B-12) 1,000 mcg PO DAILY 01/26/23 06/04/23 History [Vitamin B-12] Ergocalciferol (Vitamin D2) 1,250 mcg PO Q7D 01/26/23 06/04/23 History [Drisdol (50,000 Iu)] Loperamide [Imodium] 2 mg PO QID PRN 30 Days #120 cap 02/02/23 06/04/23 Rx OLANZapine ODT [ZyPREXA Zydis] 2.5 mg PO HS 30 Days #30 tab 02/02/23 06/04/23 Rx Gabapentin 300 mg PO TID 05/29/23 06/04/23 History Pantoprazole [Protonix] 40 mg PO DAILY 06/04/23 06/04/23 History Sucralfate [Carafate] 1 gm PO BID 06/04/23 06/04/23 History Allergies Allergy/AdvReac Type Severity Reaction Status Date / Time No Known Allergies Allergy Verified 06/04/23 08:45 Physical Exam Vitals: Vital Signs Temp Pulse Pulse Resp BP Pulse Ox 06/05/23 07:57 72 06/05/23 07:41 72 06/05/23 07:15 98.5 F 77 16 135/82 99 06/05/23 02:00 99.2 F 83 16 136/82 96 06/04/23 19:38 99.9 F H 97 16 132/72 91 L 06/04/23 18:42 83 06/04/23 18:26 82 06/04/23 17:03 90 137/83 06/04/23 15:37 81 06/04/23 15:27 80 06/04/23 12:41 99.1 F 85 18 147/81 98 Intake and Output 06/04/23 06/05/23 06/05/23 22:59 06:59 14:59 Intake Total 590 Balance 590 Intake: Oral 590 Other: Voiding Method Toilet # Voids 2 3 1 # Emeses 1 - Constitutional General appearance: average body habitus, no acute distress - EENT Eyes: anicteric sclerae, edentulous ENT: hearing grossly normal - Respiratory Respiratory: bilateral: CTA - Cardiovascular Rhythm: regular Heart sounds: normal: S1, S2 - Gastrointestinal General gastrointestinal: no distended, soft, no tenderness - Integumentary Integumentary: no cyanotic, pale - Neurologic Neurologic: CNII-XII intact - Musculoskeletal Musculoskeletal: strength equal bilaterally - Psychiatric Psychiatric: A&O x's 3 Results CBC & Chem 7: 06/05/23 05:36 06/05/23 05:36 Labs: Abnormal Lab Results - Last 24 Hours (Table) 06/05/23 06/05/23 Range/Units 05:36 05:36 RBC 3.22 L (4.10-5.20) X 10*6/uL Hgb 9.5 L (12.0-15.0) g/dL Hct 31.1 L (37.2-46.3) % MCHC 30.5 L (32.0-37.0) g/dL RDW 18.1 H (11.5-14.5) % Plt Count 118 L (140-440) X 10*3/uL Immature Gran # 0.13 H (0.00-0.04) X 10*3/uL Chloride 112 H (98-107) mmol/L AST 57 H (14-36) U/L ALT 40 H (4-34) U/L Total Protein 4.8 L (6.3-8.2) g/dL Albumin 2.3 L (3.5-5.0) g/dL Microbiology - Last 24 Hours (Table) 06/03/23 21:48 Blood Culture - Preliminary Blood 06/03/23 21:33 Blood Culture - Preliminary Blood Chest x-ray: report reviewed Assessment and Plan (1) Bacteremia Current Visit: Yes Status: Acute Priority: High Code(s): R78.81 - BACTEREMIA SNOMED Code(s): 0603162 (2) Fever Current Visit: Yes Status: Acute Priority: High Code(s): R50.9 - FEVER, UNSPECIFIED SNOMED Code(s): 281205838 (3) Primary pancreatic adenocarcinoma Current Visit: Yes Status: Acute Priority: High Code(s): C25.9 - MALIGNANT NEOPLASM OF PANCREAS, UNSPECIFIED SNOMED Code(s): 6546012431236 Plan: Pancreatic adenocarcinoma -No evidence of metastatic disease at initial diagnosis. On initial evaluation at [facility] she was deemed not resectable. Treatment thus far has been with the intent to try and shrink malignancy and then have Surgery re-evaluate. She started FOLFIRINOX 11/03/22, and completed cycle 5 on 01/20 with G-CSF. Regimen was dose reduced due to adverse side effects. However, due to treatment intolerance regimen was stopped. She was changed to gemzar and abraxane and started regimen on 02/26/23, and completed cycle 4, day 1 on 05/26. -Treatment response CT scan showed stable subcentimeter lung nodules. The pancreatic mass appears to be unchanged, with evidence of involvement of the portal vein. Plan was to continue her current regimen, and referral back to surgical oncology. If they feel that she continues to be not a surgical perry date, we will continue the current regimen for 6 cycles, and then proceed to chemoradiation. -Remaining chemotherapy treatments will be on hold until patient acutely recovers. Clinic f/u scheduled with Dr. Murray on 06/17 Fever, N,V, blood in stool -Fever resolved. T max 99.9. Blood cultures negative thus far. Continues on IV abx. ID following -Supportive medications ordered, with improvement in n/v, tolerating oral intake -Blood in stool now resolved. Was transferred to [facility] for endoscopic evaluation during recent admission. Patient states gastric ulcers were noted on scope with no active bleed. Hgb stable at 9.5, plts 118,000 -Continue to monitor CBC Doctor attests: I performed a history and physical examination of this patient, developed impression and plan of care. Discussed with dictator. I agree with dictators note, documented as a scribe.
[2023-06-05] MEDS ORDERED: VANCOMYCIN TROUGH DUE 1 EACH MISC MISCELLANE ONE (22:00)
[2023-06-06 06:27] LABS: Anisocytosis Slight; Basophils % (A) 1 %; Eosinophils # (A) 0.2 k/uL (0-0.7); Eosinophils % (A) 4 %; HCT 30.8 % (34.0-46.0); HGB 9.3 gm/dL (11.4-16.0); Hypochromasia Moderate; Lymphocytes % (A) 20 %; MCH 29.6 pg (25.0-35.0); MCHC 30.2 g/dL (31.0-37.0); MCV 97.8 fL (80.0-100.0); Macrocytosis Slight; Mean Platelet Volume 8.7; Monocytes # (A) 0.5 k/uL (0-1.0); Monocytes % (A) 10 %; Neutrophils # (A) 3.3 k/uL (1.3-7.7); Neutrophils % (A) 64 %; Platelet Count 126 k/uL (150-450); RBC 3.15 m/uL (3.80-5.40); RDW 18.2 % (11.5-15.5); WBC 5.2 k/uL (3.8-10.6)
[2023-06-06 06:37] LABS: ALT 33 U/L (4-34); AST 45 U/L (14-36); African American GFR (CKD) >90 (>60 ml/min/1.73 sqM); Albumin 2.3 g/dL (3.5-5.0); Alkaline Phosphatase 105 U/L (38-126); Anion Gap 4 mmol/L; Blood Urea Nitrogen 10 mg/dL (7-17); Calcium 9.1 mg/dL (8.4-10.2); Carbon Dioxide 23 mmol/L (22-30); Chloride 107 mmol/L (98-107); Globulin 2.4 g/dL; Glucose 89 mg/dL (74-99); Non-African American GFR(CKD) >90 (>60 ml/min/1.73 sqM); Sodium 134 mmol/L (137-145); Total Bilirubin 0.3 mg/dL (0.2-1.3); Total Protein 4.7 g/dL (6.3-8.2)
[2023-06-06] MEDS: IPRATROPIUM 0.5 MG/2.5 ML NEBU INHALATION SCH (07:51)
--- NOTE | 2023-06-06 18:31 | P.PN ---
Subjective Progress Note Date: 06/06/23 57-year-old female who presented to [facility] emergency room with a chief complaint of fever. patient has a known history of pancreatic cancer, and is receiving chemotherapy, she had the blood culture as outpatient that was positive, patient was called to go to emergency room by her oncologist. she was evaluated in the emergency room vital examination on presentation revealed a temperature of 99.4 pulse 86 respiration 18 and blood pressure 145/92 pulse ox 98% on room air Laboratory data revealed a white blood count of 5.4 hemoglobin 9.0 platelet count 103 BUN 11 creatinine 0.59 AST 85 ALT 53 Testing in the emergency room revealed chest x-ray done in the emergency room revealed no acute findings Patient was admitted to medical floor for further evaluation and treatment, oncology consultation and infectious disease consultation were requested. Objective - Vital Signs Vital signs: Vital Signs Temp 97.7 F 06/06/23 07:40 Pulse 72 06/06/23 11:06 Resp 20 06/06/23 07:40 BP 104/64 06/06/23 07:40 Pulse Ox 92 L 06/06/23 07:40 FiO2 Intake & Output 06/05/23 06/06/23 06/06/23 18:59 06:59 18:59 Intake Total 640 Balance 640 Intake: Intake, IV Titration 100 Amount Cefepime 2 gm In Sodium 100 Chloride 0.9% 100 ml @ 25 mls/hr IVPB Q8H [facility] Rx#: [id number] Oral 540 Other: Voiding Method Toilet Toilet # Voids 2 2 # Bowel Movements 0 - Exam In general patient is alert and oriented x 3 in no distress HEENT head normocephalic and atraumatic Neck is supple no JVD no goiter no lymphadenopathy no carotid bruit Chest examination is clear to auscultation no crackles no wheezing Cardiac exam reveals regular heart sounds S1 and S2 no gallops no murmurs Abdomen is soft nontender no organomegaly with normal bowel sounds Extremity exam reveals no edema no cyanosis or clubbing Neurological examination reveals no gross focal deficits - Labs CBC & Chem 7: 06/06/23 05:39 06/06/23 05:39 Labs: Abnormal Lab Results - Last 24 Hours (Table) 06/05/23 06/05/23 06/06/23 Range/Units 05:36 05:36 05:39 RBC 3.15 L (3.80-5.40) m/uL Hgb 9.3 L (11.4-16.0) gm/dL Hct 30.8 L (34.0-46.0) % MCHC 30.2 L (31.0-37.0) g/dL RDW 18.2 H (11.5-15.5) % Plt Count 126 L (150-450) k/uL Sodium (137-145) mmol/L AST (14-36) U/L C-Reactive Protein 1.00 H (0.00-0.80) mg/dL Total Protein (6.3-8.2) g/dL Albumin (3.5-5.0) g/dL Procalcitonin 0.15 H (0.02-0.09) ng/mL 06/06/23 Range/Units 05:39 RBC (3.80-5.40) m/uL Hgb (11.4-16.0) gm/dL Hct (34.0-46.0) % MCHC (31.0-37.0) g/dL RDW (11.5-15.5) % Plt Count (150-450) k/uL Sodium 134 L (137-145) mmol/L AST 45 H (14-36) U/L C-Reactive Protein (0.00-0.80) mg/dL Total Protein 4.7 L (6.3-8.2) g/dL Albumin 2.3 L (3.5-5.0) g/dL Procalcitonin (0.02-0.09) ng/mL Microbiology - Last 24 Hours (Table) 06/03/23 21:48 Blood Culture - Preliminary Blood 06/03/23 21:33 Blood Culture - Preliminary Blood Assessment and Plan Assessment: febrile illness, with positive blood culture as outpatient pancreatic cancer maintained on chemotherapy Underlying history of COPD Underlying history of obstructive sleep apnea Underlying history of underlying history of osteoarthritis underlying history of depression with anxiety disorder Underlying history of hypertension Underlying history of hyperlipidemia At this time patient is admitted to medical floor She was started on IV antibiotic cefepime Home medications reviewed and reordered Infectious disease consultation and oncology consultation requested For DVT prophylaxis subcu Lovenox
[2023-06-07 09:21] LABS: HCT 30.1 % (37.2-46.3); HGB 9.3 g/dL (12.0-15.0); MCH 29.3 pg (27.0-32.0); MCHC 30.9 g/dL (32.0-37.0); Mean Platelet Volume 11.4 FL (9.5-12.2); NRBC Per 100 WBC 0 X 10*3/uL (0.00-0.01); Platelet Count 155 X 10*3/uL (140-440); RBC 3.17 X 10*6/uL (4.10-5.20); RDW 17.9 % (11.5-14.5); WBC 5.08 X 10*3/uL (4.50-10.00)
[2023-06-07 09:22] LABS: Basophils # (A) 0.02 X 10*3/uL (0.00-0.10); Basophils % (A) 0.4 %; Eosinophils # (A) 0.39 X 10*3/uL (0.04-0.35); Eosinophils % (A) 7.7 %; Lymphocytes # (A) 1.33 X 10*3/uL (0.90-5.00); Lymphocytes % (A) 26.2 %; Monocytes # (A) 0.73 X 10*3/uL (0.20-1.00); Monocytes % (A) 14.4 %; Neutrophils # (A) 2.54 X 10*3/uL (1.80-7.70); Neutrophils % (A) 49.9 %
[2023-06-07 09:26] LABS: BUN/Creat Ratio 13.38 Ratio (12.00-20.00); Blood Urea Nitrogen 10.7 mg/dL (9.0-27.0); Calcium 9.3 mg/dL (8.7-10.3); Carbon Dioxide 24.9 mmol/L (21.6-31.8); Chloride 107 mmol/L (96-109); Glucose 82 mg/dL (70-110); Potassium 4.4 mmol/L (3.5-5.5); Sodium 139 mmol/L (135-145)
--- NOTE | 2023-06-07 15:01 | P.PN ---
Subjective Progress Note Date: 06/06/23 Principal diagnosis: Reason for follow-up is fever and positive blood culture Patient is a 57-year-old female with a past medical history significant for COPD anxiety depression, pancreatic cancer on chemotherapy apparently recently admitted at [facility] with a GI bleed requiring endoscopy and apparently the patient did have a blood culture done at that facility which was positive, patient also have a low-grade fever for the patient presented to hospital. On today's visit that is 06/06/2023, patient has been afebrile, patient is breathing comfortably and is currently on room air, patient denies having any significant cough no chest pain shortness of breath, patient denies nausea vomiting or diarrhea and no abdominal pain, feeling better Patient white count is 5.2, creatinine 0.63, procalcitonin 0.15 Objective - Vital Signs Vital signs: Vital Signs Temp 97.7 F 06/06/23 07:40 Pulse 72 06/06/23 11:06 Resp 20 06/06/23 07:40 BP 104/64 06/06/23 07:40 Pulse Ox 92 L 06/06/23 07:40 FiO2 Intake & Output 06/05/23 06/06/23 06/06/23 18:59 06:59 18:59 Intake Total 640 Balance 640 Intake: Intake, IV Titration 100 Amount Cefepime 2 gm In Sodium 100 Chloride 0.9% 100 ml @ 25 mls/hr IVPB Q8H [facility] Rx#: [id number] Oral 540 Other: Voiding Method Toilet Toilet # Voids 2 2 # Bowel Movements 0 - Exam GENERAL DESCRIPTION: Middle-aged female lying in bed in no distress RESPIRATORY SYSTEM: Unlabored breathing , decreased breath sounds at bases HEART: S1 S2 regular rate and rhythm , ABDOMEN: Soft , no tenderness EXTREMITIES: No edema feet - Labs CBC & Chem 7: 06/07/23 05:55 06/07/23 05:55 Labs: Abnormal Lab Results - Last 24 Hours (Table) 06/05/23 06/05/23 06/06/23 Range/Units 05:36 05:36 05:39 RBC 3.15 L (3.80-5.40) m/uL Hgb 9.3 L (11.4-16.0) gm/dL Hct 30.8 L (34.0-46.0) % MCHC 30.2 L (31.0-37.0) g/dL RDW 18.2 H (11.5-15.5) % Plt Count 126 L (150-450) k/uL Sodium (137-145) mmol/L AST (14-36) U/L C-Reactive Protein 1.00 H (0.00-0.80) mg/dL Total Protein (6.3-8.2) g/dL Albumin (3.5-5.0) g/dL Procalcitonin 0.15 H (0.02-0.09) ng/mL 06/06/23 Range/Units 05:39 RBC (3.80-5.40) m/uL Hgb (11.4-16.0) gm/dL Hct (34.0-46.0) % MCHC (31.0-37.0) g/dL RDW (11.5-15.5) % Plt Count (150-450) k/uL Sodium 134 L (137-145) mmol/L AST 45 H (14-36) U/L C-Reactive Protein (0.00-0.80) mg/dL Total Protein 4.7 L (6.3-8.2) g/dL Albumin 2.3 L (3.5-5.0) g/dL Procalcitonin (0.02-0.09) ng/mL Microbiology - Last 24 Hours (Table) 06/03/23 21:48 Blood Culture - Preliminary Blood 06/03/23 21:33 Blood Culture - Preliminary Blood Assessment and Plan (1) Bacteremia Current Visit: Yes Status: Acute Priority: High Code(s): R78.81 - BACTEREM [place] SNOMED Code(s): 9155786 (2) Fever Current Visit: Yes Status: Acute Priority: High Code(s): R50.9 - FEVER, UNSPECIFIED SNOMED Code(s): 192904771 Plan: 1patient presented to hospital with the positive blood culture from the outside facility with the patient was admitted for a GI bleed we will try to get more information from the outside facility patient did have a low-grade fever and did have a port could be the source 2-blood culture has been repeated which are [facility] possible contamination 3-patient to continue with the cefepime while waiting for repeat culture to finalize Dictation was produced using [employer] dictation software. please excuse any grammatical, word or spelling errors. Time with Patient: Less than 30
--- NOTE | 2023-06-07 15:02 | P.PN ---
Subjective Progress Note Date: 06/07/23 Principal diagnosis: Reason for follow-up is fever and positive blood culture Patient is a 57-year-old female with a past medical history significant for COPD anxiety depression, pancreatic cancer on chemotherapy apparently recently admitted at [facility] with a GI bleed requiring endoscopy and apparently the patient did have a blood culture done at that facility which was positive, patient also have a low-grade fever for the patient presented to hospital. On today's visit that is 06/07/2023,the patient denies any fever or any chills, patient is breathing comfortably on room air, the patient denies chest pain shortness of breath and no significant cough, patient denies abdominal pain, no nausea vomiting or diarrhea. No new symptoms feeling better Patient white count is 5.08, creatinine 0.8 blood cultures so far negative Objective - Vital Signs Vital signs: Vital Signs Temp 99.2 F 06/07/23 12:57 Pulse 68 06/07/23 12:57 Resp 18 06/07/23 12:57 BP 104/70 06/07/23 12:57 Pulse Ox 97 06/07/23 12:57 FiO2 Intake & Output 06/06/23 06/07/23 06/07/23 18:59 06:59 18:59 Intake Total 100 720 Balance 100 720 Intake: Intake, IV Titration 100 Amount Cefepime 2 gm In Sodium 100 Chloride 0.9% 100 ml @ 25 mls/hr IVPB Q8H [facility] Rx#: [id number] Oral 720 Other: Voiding Method Toilet Toilet Toilet # Voids 1 1 # Bowel Movements 0 - Exam GENERAL DESCRIPTION: Middle-aged female lying in bed in no distress RESPIRATORY SYSTEM: Unlabored breathing , decreased breath sounds at bases HEART: S1 S2 regular rate and rhythm , ABDOMEN: Soft , no tenderness EXTREMITIES: No edema feet - Labs CBC & Chem 7: 06/07/23 05:55 06/07/23 05:55 Labs: Abnormal Lab Results - Last 24 Hours (Table) 06/07/23 Range/Units 05:55 RBC 3.17 L (4.10-5.20) X 10*6/uL Hgb 9.3 L (12.0-15.0) g/dL Hct 30.1 L (37.2-46.3) % MCHC 30.9 L (32.0-37.0) g/dL RDW 17.9 H (11.5-14.5) % Immature Gran # 0.07 H (0.00-0.04) X 10*3/uL Eosinophils # 0.39 H (0.04-0.35) X 10*3/uL Microbiology - Last 24 Hours (Table) 06/03/23 21:48 Blood Culture - Preliminary Blood 06/03/23 21:33 Blood Culture - Preliminary Blood Assessment and Plan (1) Bacteremia Current Visit: Yes Status: Acute Priority: High Code(s): R78.81 - BACTEREMIA SNOMED Code(s): 5776782 (2) Fever Current Visit: Yes Status: Acute Priority: High Code(s): R50.9 - FEVER, UNSPECIFIED SNOMED Code(s): 822891080 Plan: 1patient presented to hospital with the positive blood culture from the outside facility with the patient was admitted for a GI bleed we will try to get more information from the outside facility patient did have a low-grade fever and did have a port could be the source 2-blood culture has been repeated which are [facility] possible contamination 3-patient to continue with the cefepime, patient seem to have shown overall clinical e improvement we will consider short course of oral Ceftin on discharge Dictation was produced using [employer] software. please excuse any grammatical, word or spelling errors. Time with Patient: Less than 30
--- NOTE | 2023-06-07 17:26 | P.PN ---
Subjective Progress Note Date: 06/07/23 57-year-old female who presented to [facility] emergency room with a chief complaint of fever. patient has a known history of pancreatic cancer, and is receiving chemotherapy, she had the blood culture as outpatient that was positive, patient was called to go to emergency room by her oncologist. she was evaluated in the emergency room vital examination on presentation revealed a temperature of 99.4 pulse 86 respiration 18 and blood pressure 145/92 pulse ox 98% on room air Laboratory data revealed a white blood count of 5.4 hemoglobin 9.0 platelet count 103 BUN 11 creatinine 0.59 AST 85 ALT 53 Testing in the emergency room revealed chest x-ray done in the emergency room revealed no acute findings Patient was admitted to medical floor for further evaluation and treatment, oncology consultation and infectious disease consultation were requested. 06/07/2023 the patient is seen and evaluated in room at bedside; denies any fever or any chills, patient is breathing comfortably on room air, the patient denies chest pain shortness of breath and no significant cough, patient denies abdominal pain, no nausea vomiting or diarrhea. No new symptoms feeling better Vital signs are reviewed and are stable Blood work reveals WBC 5.08, hemoglobin of 9.3, sodium 139, potassium 4.4, BUNs/creatinine of 10.7 by/0.8 and blood glucose of 82 patient presented to hospital with the positive blood culture from the outside facility with the patient was admitted for a GI bleed we will try to get more information from the outside facility patient did have a low-grade fever and did have a port could be the source -blood culture has been repeated which are currently [facility] possible contamination -patient to continue with the cefepime Objective - Vital Signs Vital signs: Vital Signs Temp 97.9 F 06/07/23 07:34 Pulse 80 06/07/23 07:49 Resp 18 06/07/23 07:34 BP 102/62 06/07/23 07:34 Pulse Ox 96 06/07/23 01:52 FiO2 Intake & Output 06/06/23 06/07/23 06/07/23 18:59 06:59 18:59 Intake Total 100 240 Balance 100 240 Intake: Intake, IV Titration 100 Amount Cefepime 2 gm In Sodium 100 Chloride 0.9% 100 ml @ 25 mls/hr IVPB Q8H [facility] Rx#: [id number] Oral 240 Other: Voiding Method Toilet Toilet Toilet # Voids 1 1 # Bowel Movements 0 - Exam In general patient is alert and oriented x 3 in no distress HEENT head normocephalic and atraumatic Neck is supple no JVD no goiter no lymphadenopathy no carotid bruit Chest examination is clear to auscultation no crackles no wheezing Cardiac exam reveals regular heart sounds S1 and S2 no gallops no murmurs Abdomen is soft nontender no organomegaly with normal bowel sounds Extremity exam reveals no edema no cyanosis or clubbing Neurological examination reveals no gross focal deficits - Labs CBC & Chem 7: 06/07/23 05:55 06/07/23 05:55 Labs: Abnormal Lab Results - Last 24 Hours (Table) 06/07/23 Range/Units 05:55 RBC 3.17 L (4.10-5.20) X 10*6/uL Hgb 9.3 L (12.0-15.0) g/dL Hct 30.1 L (37.2-46.3) % MCHC 30.9 L (32.0-37.0) g/dL RDW 17.9 H (11.5-14.5) % Immature Gran # 0.07 H (0.00-0.04) X 10*3/uL Eosinophils # 0.39 H (0.04-0.35) X 10*3/uL Microbiology - Last 24 Hours (Table) 06/03/23 21:48 Blood Culture - Preliminary Blood 06/03/23 21:33 Blood Culture - Preliminary Blood Assessment and Plan Assessment: febrile illness, with positive blood culture as outpatient pancreatic cancer maintained on chemotherapy Underlying history of COPD Underlying history of obstructive sleep apnea Underlying history of underlying history of osteoarthritis underlying history of depression with anxiety disorder Underlying history of hypertension Underlying history of hyperlipidemia At this time patient is admitted to medical floor She was started on IV antibiotic cefepime Home medications reviewed and reordered Infectious disease consultation and oncology consultation requested For DVT prophylaxis subcu Lovenox
[2023-06-07] MEDS: CEFEPIME 2 GM in SODIUM CHLORIDE 0.9% 100 ML IVPB SCH (17:42)
[2023-06-07 18:01] VITALS: RESP 16
[2023-06-08] MEDS: IPRATROPIUM-ALBUTEROL 3 ML NEB INHALATION PRN (07:41)
[2023-06-08 08:41] LABS: Basophils # (A) 0.03 X 10*3/uL (0.00-0.10); Basophils % (A) 0.7 %; Eosinophils # (A) 0.31 X 10*3/uL (0.04-0.35); Eosinophils % (A) 6.9 %; HCT 31.9 % (37.2-46.3); HGB 9.7 g/dL (12.0-15.0); Lymphocytes # (A) 1.02 X 10*3/uL (0.90-5.00); Lymphocytes % (A) 22.6 %; MCH 29.8 pg (27.0-32.0); MCHC 30.4 g/dL (32.0-37.0); MCV 97.9 FL (80.0-97.0); Mean Platelet Volume 10.9 FL (9.5-12.2); Monocytes # (A) 0.54 X 10*3/uL (0.20-1.00); Monocytes % (A) 11.9 %; NRBC Per 100 WBC 0 X 10*3/uL (0.00-0.01); Neutrophils # (A) 2.56 X 10*3/uL (1.80-7.70); Neutrophils % (A) 56.6 %; Platelet Count 147 X 10*3/uL (140-440); RBC 3.26 X 10*6/uL (4.10-5.20); RDW 17.9 % (11.5-14.5); WBC 4.52 X 10*3/uL (4.50-10.00)
[2023-06-08 08:54] LABS: BUN/Creat Ratio 12.33 Ratio (12.00-20.00); Blood Urea Nitrogen 11.1 mg/dL (9.0-27.0); Calcium 9.1 mg/dL (8.7-10.3); Carbon Dioxide 27.1 mmol/L (21.6-31.8); Chloride 102 mmol/L (96-109); Glucose 90 mg/dL (70-110); Potassium 4.3 mmol/L (3.5-5.5); Sodium 138 mmol/L (135-145)
[2023-06-08] MEDS: ERGOCALCIFEROL 1,250 MCG (50,000 IU) CAPSULE PO SCH (09:12)
--- NOTE | 2023-06-08 12:11 | P.PN ---
Subjective Progress Note Date: 06/08/23 Principal diagnosis: Reason for follow-up is fever and positive blood culture Patient is a 57-year-old female with a past medical history significant for COPD anxiety depression, pancreatic cancer on chemotherapy apparently recently admitted at [facility] with a GI bleed requiring endoscopy and apparently the patient did have a blood culture done at that facility which was positive, patient also have a low-grade fever for the patient presented to hospital. On today's visit that is 06/08/2023,the patient remains to be afebrile, patient is on room air not requiring supplemental oxygen and denies any shortness of breath no chest pain or cough.Patient denies having any nausea or vomiting, no abdominal pain and no diarrhea, feeling better wants to go home. Patient white count is 4.52, creatinine 0.9 blood culture has been negative Objective - Vital Signs Vital signs: Vital Signs Temp 98.2 F 06/08/23 06:49 Pulse 76 06/08/23 11:26 Resp 16 06/08/23 06:49 BP 128/81 06/08/23 06:49 Pulse Ox 98 06/08/23 06:49 FiO2 Intake & Output 06/07/23 06/08/23 06/08/23 18:59 06:59 18:59 Intake Total 820 100 Balance 820 100 Intake: Intake, IV Titration 100 100 Amount Cefepime 2 gm In Sodium 100 100 Chloride 0.9% 100 ml @ 25 mls/hr IVPB Q12H [facility] Rx# :[id number] Oral 720 Other: Voiding Method Toilet Toilet # Voids 3 - Exam GENERAL DESCRIPTION: Middle-aged female lying in bed in no distress RESPIRATORY SYSTEM: Unlabored breathing , decreased breath sounds at bases HEART: S1 S2 regular rate and rhythm , ABDOMEN: Soft , no tenderness EXTREMITIES: No edema feet - Labs CBC & Chem 7: 06/08/23 06:00 06/08/23 06:00 Labs: Abnormal Lab Results - Last 24 Hours (Table) 06/08/23 Range/Units 06:00 RBC 3.26 L (4.10-5.20) X 10*6/uL Hgb 9.7 L (12.0-15.0) g/dL Hct 31.9 L (37.2-46.3) % MCV 97.9 H (80.0-97.0) FL MCHC 30.4 L (32.0-37.0) g/dL RDW 17.9 H (11.5-14.5) % Immature Gran # 0.06 H (0.00-0.04) X 10*3/uL Assessment and Plan (1) Bacteremia Current Visit: Yes Status: Acute Priority: High Code(s): R78.81 - BACTEREMIA SNOMED Code(s): 1165536 (2) Fever Current Visit: Yes Status: Acute Priority: High Code(s): R50.9 - FEVER, UNSPECIFIED SNOMED Code(s): 265889336 Plan: 1patient presented to hospital with the positive blood culture from the outside facility with the patient was admitted for a GI bleed we will try to get more information from the outside facility patient did have a low-grade fever and did have a port could be the source 2-blood culture has been repeated which are currently negative, blood culture from the [facility] has been reported as corynebacterium species possible contamination 3-patient to continue with the cefepime, however no fever has been reported w afsaneh count is normal and culture negative consider short course of oral Ceftin on discharge questions answered Dictation was produced using olook dictation software. please excuse any grammatical, word or spelling errors. Time with Patient: Less than 30
[2023-06-08 12:42] VITALS: BP 102/64; PULSE 70; TEMP 97.7
--- NOTE | 2023-06-08 14:06 | P.DS ---
Providers Date of admission: 06/03/23 22:45 Expected date of discharge: 06/08/23 Attending physician: Michael Leal Consults: 06/03/23 22:44 Consult Physician Routine Consulting Provider: Trevor Barr Consult Reason/Comments: Bacteremia Do you want consulting provider notified?: Yes 06/04/23 13:04 Consult Physician Routine Consulting Provider: Kali Murray Consult Reason/Comments: pancreatic cancer Do you want consulting provider notified?: Yes Primary care physician: Michael Mel [facility] Course: diagnosis on discharge: Luz Marina Mallory, is a 57-year-old female who presented to [facility] emergency room with a chief complaint of fever. patient has a known history of pancreatic cancer, and is receiving chemotherapy, she had the blood culture as outpatient that was positive, patient was called to go to emergency room by her oncologist. she was evaluated in the emergency room vital examination on presentation revealed a temperature of 99.4 pulse 86 respiration 18 and blood pressure 145/92 pulse ox 98% on room air Laboratory data revealed a white blood count of 5.4 hemoglobin 9.0 platelet count 103 BUN 11 creatinine 0.59 AST 85 ALT 53 Testing in the emergency room revealed chest x-ray done in the emergency room revealed no acute findings Patient was admitted to medical floor for further evaluation and treatment, oncology consultation and infectious disease consultation were requested. on 06/05/2023 patient is alert and oriented 3. Infectious disease service is following patient started on IV antibiotics cefepime and vancomycin.White blood cell 6.36 hemoglobin 9.5 creatinine 0.60.current vital signs temp 98.5, heart rate 77, respiratory rate 16, blood pressure 135/82 with a pulse ox of 99% on room air awaiting oncology input Dr. Arana's group will be covering for 06/06/2023 for to 06/07/2023 57-year-old female who presented to [facility] emergency room with a chief complaint of fever. patient has a known history of pancreatic cancer, and is receiving chemotherapy, she had the blood culture as outpatient that was positive, patient was called to go to emergency room by her oncologist. she was evaluated in the emergency room vital examination on presentation revealed a temperature of 99.4 pulse 86 respiration 18 and blood pressure 145/92 pulse ox 98% on room air Laboratory data revealed a white blood count of 5.4 hemoglobin 9.0 platelet count 103 BUN 11 creatinine 0.59 AST 85 ALT 53 Testing in the emergency room revealed chest x-ray done in the emergency room revealed no acute findings Patient was admitted to medical floor for further evaluation and treatment, oncology consultation and infectious disease consultation were requested. 06/07/2023 the patient is seen and evaluated in room at bedside; denies any fever or any chills, patient is breathing comfortably on room air, the patient denies chest pain shortness of breath and no significant cough, patient denies abdominal pain, no nausea vomiting or diarrhea. No new symptoms feeling better Vital signs are reviewed and are stable Blood work reveals WBC 5.08, hemoglobin of 9.3, sodium 139, potassium 4.4, BUNs/creatinine of 10.7 by/0.8 and blood glucose of 82 patient presented to hospital with the positive blood culture from the outside facility with the patient was admitted for a GI bleed we will try to get more information from the outside facility patient did have a low-grade fever and did have a port could be the source -blood culture has been repeated which are currently [facility] possible contamination -patient to continue with the cefepime On 06/08/2023 patient was seen and examined on the medical floor she is alert and oriented 3 in no apparent distress there is no fever or chills no headache or dizziness no chest pain no shortness of breath no cough no nausea or vomiting no abdominal pain no diarrhea and no urinary symptoms. white blood count today is 4.52 temperature 97.7. Case was discussed was Dr. Barr infectious disease today. Patient was cleared for discharge to home on a course of Ceftin. Hospital course: Sepsis with febrile illness, with positive blood culture as outpatient pancreatic cancer maintained on chemotherapy Underlying history of COPD Underlying history of obstructive sleep apnea Underlying history of underlying history of osteoarthritis underlying history of depression with anxiety disorder Underlying history of hypertension Underlying history of hyperlipidemia Patient Condition at Discharge: Stable Plan - Discharge Summary New Discharge Prescriptions: New cefUROXime axetiL [Cefuroxime] 500 mg PO BID 7 Days #14 tab Continue Ferrous Sulfate [Iron] 325 mg PO DAILY calcitrioL 0.25 mcg PO DAILY Aspirin EC [Ecotrin Low Dose] 81 mg PO DAILY Midodrine HCl 5 mg PO TID Metoprolol Tartrate [Lopressor] 25 mg PO BID Cholestyramine (with Sugar) [Cholestyramine Powder] 4 gm PO BID Famotidine [Pepcid] 40 mg PO DAILY LORazepam [Ativan] 0.5 mg PO Q8HR PRN PRN Reason: Anxiety Budesonide [Pulmicort] 0.5 mg INHALATION RT-BID Loperamide [Imodium] 2 mg PO QID PRN 30 Days #120 cap PRN Reason: Diarrhea OLANZapine ODT [ZyPREXA Zydis] 2.5 mg PO HS 30 Days #30 tab Gabapentin 300 mg PO TID Sucralfate [Carafate] 1 gm PO BID DULoxetine HCL [Cymbalta] 30 mg PO BID Albuterol Inhaler [Ventolin Hfa Inhaler] 1 - 2 puff INHALATION RT-Q6H PRN PRN Reason: Shortness Of Breath Potassium Chloride ER [K-Dur 20] 20 meq PO DAILY Fluticasone/Umeclidin/Vilanter [Trelegy Ellipta 100-62.5-25] 1 puff INHALATION RT-DAILY lamoTRIgine [LaMICtal] 75 mg PO HS Ondansetron [Zofran] 4 mg PO DAILY PRN PRN Reason: Nausea Rosuvastatin Calcium 5 mg PO HS Ipratropium-Albuterol Nebulize [Duoneb 0.5 mg-3 mg/3 ml Soln] 3 ml INHALATION RT-Q6H PRN PRN Reason: Shortness Of Breath Cyanocobalamin (Vitamin B-12) [Vitamin B-12] 1,000 mcg PO DAILY Ergocalciferol (Vitamin D2) [Drisdol (50,000 Iu)] 1,250 mcg PO Q7D Pantoprazole [Protonix] 40 mg PO DAILY Discharge Medication List Albuterol Inhaler [Ventolin Hfa Inhaler] 1 - 2 puff INHALATION RT-Q6H PRN 11/03/22 [History] Aspirin EC [Ecotrin Low Dose] 81 mg PO DAILY 11/03/22 [History] DULoxetine HCL [Cymbalta] 30 mg PO BID 11/03/22 [History] Ferrous Sulfate [Iron] 325 mg PO DAILY 11/03/22 [History] Fluticasone/Umeclidin/Vilanter [Trelegy Ellipta 100-62.5-25] 1 puff INHALATION RT-DAILY 11/03/22 [History] Metoprolol Tartrate [Lopressor] 25 mg PO BID 11/03/22 [History] Midodrine HCl 5 mg PO TID 11/03/22 [History] Potassium Chloride ER [K-Dur 20] 20 meq PO DAILY 11/03/22 [History] calcitrioL 0.25 mcg PO DAILY 11/03/22 [History] Budesonide [Pulmicort] 0.5 mg INHALATION RT-BID 11/28/22 [History] Cholestyramine (with Sugar) [Cholestyramine Powder] 4 gm PO BID 11/28/22 [History] Famotidine [Pepcid] 40 mg PO DAILY 11/28/22 [History] Ipratropium-Albuterol Nebulize [Duoneb 0.5 mg-3 mg/3 ml Soln] 3 ml INHALATION RT-Q6H PRN 11/28/22 [History] LORazepam [Ativan] 0.5 mg PO Q8HR PRN 11/28/22 [History] Ondansetron [Zofran] 4 mg PO DAILY PRN 11/28/22 [History] Rosuvastatin Calcium 5 mg PO HS 11/28/22 [History] lamoTRIgine [LaMICtal] 75 mg PO HS 11/28/22 [History] Cyanocobalamin (Vitamin B-12) [Vitamin B-12] 1,000 mcg PO DAILY 01/26/23 [History] Ergocalciferol (Vitamin D2) [Drisdol (50,000 Iu)] 1,250 mcg PO Q7D 01/26/23 [History] Loperamide [Imodium] 2 mg PO QID PRN 30 Days #120 cap 02/02/23 [Rx] OLANZapine ODT [ZyPREXA Zydis] 2.5 mg PO HS 30 Days #30 tab 02/02/23 [Rx] Gabapentin 300 mg PO TID 05/29/23 [History] Pantoprazole [Protonix] 40 mg PO DAILY 06/04/23 [History] Sucralfate [Carafate] 1 gm PO BID 06/04/23 [History] cefUROXime axetiL [Cefuroxime] 500 mg PO BID 7 Days #14 tab 06/08/23 [Rx] Follow up Appointment(s)/Referral(s): Michael Leal MD [Primary Care Provider] - 1-2 days
== END 2023-06-08 14:55 | disposition home or self-care (01) | DRG 872 ==
LOC: EC 20:52 → 5NMEDONC 22:45
PROVIDERS: ADMIT Internal Medicine; ATTEND Internal Medicine
DX: A41.9 Sepsis, unspecified organism (principal); C25.0 Malignant neoplasm of head of pancreas; E78.5 Hyperlipidemia, unspecified; E86.0 Dehydration; F32.A Depression, unspecified; F41.9 Anxiety disorder, unspecified; F10.11 Alcohol abuse, in remission; R19.7 Diarrhea, unspecified; I10 Essential (primary) hypertension; K22.70 Barrett's esophagus without dysplasia; E66.9 Obesity, unspecified; R41.3 Other amnesia; J44.89 Other specified chronic obstructive pulmonary disease; Z79.82 Long term (current) use of aspirin; R39.15 Urgency of urination; Z79.899 Other long term (current) drug therapy; Z80.8 Family history of malignant neoplasm of other organs or systems; Z87.891 Personal history of nicotine dependence; F81.9 Developmental disorder of scholastic skills, unspecified; G47.33 Obstructive sleep apnea (adult) (pediatric); D64.9 Anemia, unspecified; K21.9 Gastro-esophageal reflux disease without esophagitis; K59.00 Constipation, unspecified; Z96.89 Presence of other specified functional implants; M19.90 Unspecified osteoarthritis, unspecified site; M62.838 Other muscle spasm; Z90.10 Acquired absence of unspecified breast and nipple; Z68.26 Body mass index [BMI] 26.0-26.9, adult; Z79.51 Long term (current) use of inhaled steroids; R19.5 Other fecal abnormalities
CPT/HCPCS: 36415; 71046; 80048; 80053; 83605; 84145; 85025; 86140; 87040; 94640; 96365; 96368; 99285

== ENCOUNTER 2023-09-14 15:22 | Emergency (ER) | payer MEDICARE, OTHER ==
[2023-09-14 15:37] VITALS: TEMP 98.3
--- NOTE | 2023-09-14 16:32 | ED ---
Recheck HPI - General Chief Complaint: Recheck/Abnormal Lab/Rx Stated Complaint: urogenital Time Seen by Provider: 09/14/23 16:29 Source: patient, RN notes reviewed Mode of arrival: ambulatory - History of Present Illness Initial Comments: 58-year-old female with a past medical history of COPD, pancreatic cancer and stage III chronic kidney disease presented ER with a chief complaint of nausea and decreased urine output. Patient was sent by coil placer, Dr. Licona for evaluation. Patient is not currently on dialysis. She states for the past 4 days she has been extremely nauseous and having episodes of emesis. She also reports she has been having a decreased urinary output compared to normal. She is not currently in any chemo or radiation. Last radiation was September 08. She does state she finished up oral chemo in May of this year. She denies any fevers, abdominal pain, chest pain or shortness of breath. - Related Data Home Medications Medication Instructions Recorded Confirmed Albuterol Inhaler [Ventolin Hfa 1 - 2 puff INHALATION RT-Q6H PRN 11/03/22 09/14/23 Inhaler] Aspirin EC [Ecotrin Low Dose] 81 mg PO DAILY 11/03/22 09/14/23 DULoxetine HCL [Cymbalta] 30 mg PO BID 11/03/22 09/14/23 Ferrous Sulfate [Iron] 325 mg PO BID 11/03/22 09/14/23 Fluticasone/Umeclidin/Vilanter 1 puff INHALATION RT-DAILY 11/03/22 09/14/23 [Trelegy Ellipta 100-62.5-25] Midodrine HCl 5 mg PO TID 11/03/22 09/14/23 Potassium Chloride ER [K-Dur 20] 20 meq PO DAILY 11/03/22 09/14/23 Budesonide [Pulmicort] 0.5 mg INHALATION RT-BID 11/28/22 09/14/23 Cholestyramine (with Sugar) 4 gm PO BID 11/28/22 09/14/23 [Cholestyramine Powder] Famotidine [Pepcid] 40 mg PO DAILY 11/28/22 09/14/23 Ipratropium-Albuterol Nebulize 3 ml INHALATION RT-Q6H PRN 11/28/22 09/14/23 [Duoneb 0.5 mg-3 mg/3 ml Soln] LORazepam [Ativan] 0.5 mg PO Q8HR PRN 11/28/22 09/14/23 Ondansetron [Zofran] 4 mg PO DAILY PRN 11/28/22 09/14/23 Rosuvastatin Calcium 5 mg PO HS 11/28/22 09/14/23 lamoTRIgine [LaMICtal] 75 mg PO HS 11/28/22 09/14/23 Cyanocobalamin (Vitamin B-12) 1,000 mcg PO DAILY 01/26/23 09/14/23 [Vitamin B-12] Ergocalciferol (Vitamin D2) 1,250 mcg PO ROGEL 01/26/23 09/14/23 [Drisdol (50,000 Iu)] Gabapentin 300 mg PO TID 05/29/23 09/14/23 Pantoprazole [Protonix] 40 mg PO DAILY 06/04/23 09/14/23 Sucralfate [Carafate] 1 gm PO TID-W/MEALS 06/04/23 09/14/23 traMADol HCL 50 mg PO Q6H PRN 09/14/23 09/14/23 Previous Rx's Medication Instructions Recorded Loperamide [Imodium] 2 mg PO QID PRN 30 Days #120 cap 02/02/23 OLANZapine ODT [ZyPREXA Zydis] 2.5 mg PO HS 30 Days #30 tab 02/02/23 Ondansetron Odt [Zofran Odt] 4 mg PO Q8HR PRN #10 tab 09/14/23 Allergies Allergy/AdvReac Type Severity Reaction Status Date / Time No Known Allergies Allergy Verified 09/14/23 17:25 Review of Systems ROS Statement: Those systems with pertinent positive or pertinent negative responses have been documented in the HPI. ROS Other: All systems not noted in ROS Statement are negative. Past Medical History Past Medical History: Asthma, Cancer, COPD, GERD/Reflux, Memory Impairment, Musculoskeletal Disorder, Osteoarthritis (OA), Sleep Apnea/CPAP/BIPAP Additional Past Medical History / Comment(s): PT STATES SOME MEMORY PROBLEMS AND LEARNING DISABILITY, HAS FRIEND WHO HELPS HER WITH MEDICATIONS AND APPTS., S TATES MUSCLE SPASMS, BACK PROBLEMS WITH DISC DISEASE, ANEMIA, URINARY URGENCY, PROBLEMS WITH DIARRHEA & CONSTIPATION.Pancreatic CA diagnosed August 2022, started chemo on 11/03/22 History of Any Multi-Drug Resistant Organisms: None Reported Past Surgical History: Section, Cholecystectomy, Hysterectomy Additional Past Surgical History / Comment(s): 2 C-SECTIONS, PARTIAL HYSTERECTOMY, BERNADETTE REMOVED. States she had a stent after "yellow jaundice" due to a blockage, done [facility] Valentine Past Anesthesia/Blood Transfusion Reactions: Motion Sickness Additional Past Anesthesia/Blood Transfusion Reaction / Comment(s): STATES DIFFICULTY WAKING UP AFTER ANESTHESIA, has had two blood transfusion without incident Past Psychological History: Anxiety, Depression Smoking Status: Former smoker Past Alcohol Use History: None Reported Past Drug Use History: None Reported - Past Family History Mother Family Medical History: Cancer Additional Family Medical History / Comment(s): LUNG AND BRAIN CA General Exam Limitations: no limitations General appearance: alert, in no apparent distress Respiratory exam: Present: normal lung sounds bilaterally. Absent: respiratory distress, wheezes, rales, rhonchi, stridor Cardiovascular Exam: Present: regular rate, normal rhythm, normal heart sounds. Absent: systolic murmur, diastolic murmur, rubs, gallop, clicks GI/Abdominal exam: Present: soft, normal bowel sounds. Absent: distended, tenderness, guarding, rebound, rigid Extremities exam: Present: normal inspection, full ROM, normal capillary refill. Absent: tenderness, pedal edema, joint swelling, calf tenderness Back exam: Present: normal inspection Neurological exam: Present: alert, oriented X3, CN II-XII intact Skin exam: Present: warm, dry, intact, normal color. Absent: rash Course Vital Signs 09/14/23 09/14/23 09/14/23 15:30 18:12 21:00 Temperature 98.3 F Pulse Rate 73 64 64 Respiratory 18 18 16 Rate Blood Pressure 134/87 137/87 136/74 O2 Sat by Pulse 100 97 99 Oximetry Medical Decision Making - Medical Decision Making Was pt. sent in by a medical professional or institution (, PA, NEUROLOGICAL PHYSIOTHERAPIST, urgent care, hospital, or fdc...) When possible be specific @ -Patient sent by coil placer, , for evaluation of nausea. Did you speak to anyone other than the patient for history (EMS, parent, family, police, friend...)? What history was obtained from this source @ -No Did you review nursing and triage notes (agree or disagree)? Why? @ -I reviewed and agree with nursing and triage notes Were old charts reviewed (outside hosp., previous admission, EMS record, old EKG, old radiological studies, urgent care reports/EKG's, fdc records)? Report findings @ -No old charts were reviewed Differential Diagnosis (chest pain, altered mental status, abdominal pain women, abdominal pain men, vaginal bleeding, weakness, fever, dyspnea, syncope, headache, dizziness, GI bleed, back pain, seizure, CVA, palpatations, mental health, musculoskeletal)? @ -Differential Weakness:Hypoglycemia, shock, sepsis, hyponatremia, anemia, infection, VT, ETOH, adverse medicine reaction, overdose, stroke, this is not meant to be an all-inclusive list. EKG interpreted by me (3pts min.). @ -As above X-rays interpreted by me (1pt min.). @ -None done CT interpreted by me (1pt min.). @ -None done U/S interpreted by me (1pt. min.). @ -None done What testing was considered but not performed or refused? (CT, X-rays, U/S, labs)? Why? @ -None What meds were considered but not given or refused? Why? @ -None Did you discuss the management of the patient with other professionals (professionals i.e. , PA, NEUROLOGICAL PHYSIOTHERAPIST, lab, RT, psych nurse, social media developer, tetryl wringer operator, teacher, ecological technical officer, transplant case manager)? Give summary @ -No Was smoking cessation discussed for >3mins.? @ -No Was critical care preformed (if so, how long)? @ -No Were there social determinants of health that impacted care today? How? (H omelessness, low income, unemployed, alcoholism, drug addiction, transportation, low edu. Level, literacy, decrease access to med. care, penitentiary, rehab)? @ -No Was there de-escalation of care discussed even if they declined (Discuss DNR or withdrawal of care, Hospice)? DNR status @ -No What co-morbidities impacted this encounter? (DM, HTN, Smoking, COPD, CAD, Cancer, CVA, ARF, Chemo, Hep., AIDS, mental health diagnosis, sleep apnea, morbid obesity)? @ -Pancreatic cancer, CKD Was patient admitted / discharged? Hospital course, mention meds given and route, prescriptions, significant lab abnormalities, going to OR and other pertinent info. @ -Discharge. 58-year-old female presented to the ER with a chief complaint of nausea of and decreased urinary output. History and physical exam completed. Vitals stable. Patient in no signs of acute distress and nontoxic-appearing. Exam remarkable for normal bowel sounds with no focal tenderness. No rebound or guarding. Laboratory studies obtained remarkable for hypokalemia 3.3 otherwise not impressive. Urinalysis showing mild signs of dehydration. EKG showing sinus bradycardia with no acute ST segment or T wave abnormalities. Patient received IV fluids and potassium was supplemented. Upon reevaluation, patient reporting improved symptoms. Patient stable for discharge at this time. Advise close follow-up with PCP. Patient states that she has an appointment on 09-16-2023. Patient also advised to follow-up with coil placer, Dr. Licona, by the end of the week. Extremely strict return parameters discussed. Patient discharged in stable condition. Patient verbally expressed understanding agree with care plan. Case discussed with ED attending, Dr. Francois. Undiagnosed new problem with uncertain prognosis? @ -No Drug Therapy requiring intensive monitoring for toxicity (Heparin, Nitro, Ins ulin, Cardizem)? @ -No Were any procedures done? @ -No Diagnosis/symptom? @ -Hypokalemia/nausea Acute, or Chronic, or Acute on Chronic? @ -Acute Uncomplicated (without systemic symptoms) or Complicated (systemic symptoms)? @ -Complicated Side effects of treatment? @ -No Exacerbation, Progression, or Severe Exacerbation? @ -No Poses a threat to life or bodily function? How? (Chest pain, USA, VT, pneumonia, PE, COPD, DKA, ARF, appy, cholecystitis, CVA, Diverticulitis, Homicidal, Suicidal, threat to staff... and all critical care pts) @ -Yes, patient has pancreatic cancer. - Lab Data Result diagrams: 09/14/23 16:28 09/14/23 16:28 Lab Results 09/14/23 09/14/23 09/14/23 Range/Units 16:28 16:28 16:28 WBC 7.0 (3.8-10.6) k/uL RBC 4.51 (3.80-5.40) m/uL Hgb 12.9 (11.4-16.0) gm/dL Hct 37.8 (34.0-46.0) % MCV 83.9 (80.0-100.0) fL MCH 28.6 (25.0-35.0) pg MCHC 34.1 (31.0-37.0) g/dL RDW 14.3 (11.5-15.5) % Plt Count 211 (150-450) k/uL MPV 7.2 Neutrophils % 73 % Lymphocytes % 13 % Monocytes % 8 % Eosinophils % 5 % Basophils % 0 % Neutrophils # 5.1 (1.3-7.7) k/uL Lymphocytes # 0.9 L (1.0-4.8) k/uL Monocytes # 0.6 (0-1.0) k/uL Eosinophils # 0.3 (0-0.7) k/uL Basophils # 0.0 (0-0.2) k/uL Sodium 136 L (137-145) mmol/L Potassium 3.3 L (3.5-5.1) mmol/L Chloride 99 (98-107) mmol/L Carbon Dioxide 32 H (22-30) mmol/L Anion Gap 5 mmol/L BUN 20 H (7-17) mg/dL Creatinine 0.84 (0.52-1.04) mg/dL Est GFR (CKD-EPI)AfAm 87 (>60 ml/min/1.73 sqM) Est GFR (CKD-EPI)NonAf 76 (>60 ml/min/1.73 sqM) Glucose 91 (74-99) mg/dL Calcium 9.2 (8.4-10.2) mg/dL Magnesium 1.9 (1.6-2.3) mg/dL Total Bilirubin 0.6 (0.2-1.3) mg/dL AST 37 H (14-36) U/L ALT 20 (4-34) U/L Alkaline Phosphatase 106 (38-126) U/L Total Protein 5.9 L (6.3-8.2) g/dL Albumin 3.4 L (3.5-5.0) g/dL Urine Color Yellow Urine Appearance Clear (Clear) Urine pH 5.5 (5.0-8.0) Ur Specific [place] 1.035 (1.001-1.035) Urine Protein Trace H (Negative) Urine Glucose (UA) Negative (Negative) Urine Ketones Negative (Negative) Urine Blood Trace H (Negative) Urine Nitrite Negative (Negative) Urine Bilirubin Negative (Negative) Urine Urobilinogen <2.0 (<2.0) mg/dL Ur Leukocyte Esterase Negative (Negative) Urine RBC 1 (0-5) /hpf Urine WBC 2 (0-5) /hpf Ur Squamous Epith Cells 1 (0-4) /hpf Urine Mucus Few H (None) /hpf - EKG Data -: EKG Interpreted by Me EKG Comments: EKG taken at 16:23 showing a sinus bradycardia with no acute ST segment or T- wave abnormalities. Normal axis. Ventricular rate 57, MT interval 204, QRS du ration 88, QT/QTC 445/440. Disposition Clinical Impression: Hypokalemia, Nausea Disposition: HOME SELF-CARE Condition: Stable Instructions (If sedation given, give patient instructions): Acute Nausea and Vomiting (DC) Additional Instructions: Please follow-up with PCP and kidney specialist. Return to the ER for any new or worsening symptoms. Prescriptions: Ondansetron Odt [Zofran Odt] 4 mg PO Q8HR PRN #10 tab PRN Reason: Nausea Is patient prescribed a controlled substance at d/c from ED?: No Referrals: Michael Leal MD [Primary Care Provider] - 1-2 days Time of Disposition: 18:40
[2023-09-14] MEDS: ONDANSETRON 4 MG/2 ML VIAL IVP STA (16:39)
[2023-09-14 16:45] LABS: Basophils % (A) 0 %; Eosinophils # (A) 0.3 k/uL (0-0.7); Eosinophils % (A) 5 %; HCT 37.8 % (34.0-46.0); HGB 12.9 gm/dL (11.4-16.0); Lymphocytes # (A) 0.9 k/uL (1.0-4.8); Lymphocytes % (A) 13 %; MCH 28.6 pg (25.0-35.0); MCHC 34.1 g/dL (31.0-37.0); MCV 83.9 fL (80.0-100.0); Mean Platelet Volume 7.2; Monocytes # (A) 0.6 k/uL (0-1.0); Monocytes % (A) 8 %; Neutrophils # (A) 5.1 k/uL (1.3-7.7); Neutrophils % (A) 73 %; Platelet Count 211 k/uL (150-450); RBC 4.51 m/uL (3.80-5.40); RDW 14.3 % (11.5-15.5)
[2023-09-14 17:29] LABS: ALT 20 U/L (4-34); AST 37 U/L (14-36); African American GFR (CKD) 87 (>60 ml/min/1.73 sqM); Albumin 3.4 g/dL (3.5-5.0); Alkaline Phosphatase 106 U/L (38-126); Anion Gap 5 mmol/L; Blood Urea Nitrogen 20 mg/dL (7-17); Calcium 9.2 mg/dL (8.4-10.2); Carbon Dioxide 32 mmol/L (22-30); Chloride 99 mmol/L (98-107); Glucose 91 mg/dL (74-99); Magnesium 1.9 mg/dL (1.6-2.3); Non-African American GFR(CKD) 76 (>60 ml/min/1.73 sqM); Potassium 3.3 mmol/L (3.5-5.1); Sodium 136 mmol/L (137-145); Total Bilirubin 0.6 mg/dL (0.2-1.3); Total Protein 5.9 g/dL (6.3-8.2)
[2023-09-14 17:58] LABS: Appearance,Urine Clear (Clear); Bilirubin,Urine Negative (Negative); Blood,Urine Trace (Negative); Color,Urine Yellow; Glucose,Urine (UA) Negative (Negative); Ketones,Urine Negative (Negative); Leukocyte Esterase,Urine Negative (Negative); Mucus,Urine Few /hpf; Nitrite,Urine Negative (Negative); PH, Urine 5.5 (5.0-8.0); Protein,Urine Trace (Negative); RBC,Urine 1 /hpf (0-5); Specific Gravity,Urine 1.035 (1.001-1.035); Squamous Epithelial Cell,Urine 1 /hpf (0-4); Urobilinogen,Urine <2.0 mg/dL (<2.0); WBC,Urine 2 /hpf (0-5)
[2023-09-14 18:13] VITALS: PULSE 64
[2023-09-14] MEDS: POTASSIUM CHLORIDE ER 20 MEQ TAB.ER PO STA (18:15)
[2023-09-14] MEDS: SODIUM CHLORIDE 0.9% 1,000 ML IV STA (18:16)
[2023-09-15 02:01] VITALS: BP 136/74; RESP 16
== END 2023-09-14 21:00 | disposition home or self-care (01) ==
LOC: EC 15:22
DX: E87.6 Hypokalemia (principal); R11.0 Nausea; J44.9 Chronic obstructive pulmonary disease, unspecified; N18.30 Chronic kidney disease, stage 3 unspecified; Z87.891 Personal history of nicotine dependence; Z90.49 Acquired absence of other specified parts of digestive tract; Z79.82 Long term (current) use of aspirin; Z79.899 Other long term (current) drug therapy
CPT/HCPCS: 99283; 36415; 93005; 80053; 83735; 85025; 81001; 96374; 96361; J2405

== ENCOUNTER → 2023-10-02 | Outpatient (CLI) | payer MEDICARE, OTHER ==
--- NOTE | 2023-10-23 10:02 | US ---
Patient: Luz Marina Mallory A Ordering Physician: Unknown, Unknown ID: [id number] Phone, Pager: Phon e: N/A Pager: N/A : 1965 Age/Gender: 58Y, F Primary Location: N/A Procedure: US kidneys/renal and bladder Study Date: 10/02/2023 4:02:00 PM EXAMINATION TYPE: US renals and bladder DATE OF EXAM: 10/18/2023 COMPARISON: NONE CLINICAL INDICATION: Chronic kidney disease stage III B Technique: Grayscale and color Doppler imaging of the kidneys and bladder Right Kidney: 9.5 x 4.3 cm No evidence for mass or obstructive uropathy or calculus. Cortical medull jg differentiation is maintained. Left Kidney: 9.1 x 4.6 cm No evidence for mass or obstructive uropathy or calculus. Cortical medullar y differentiation is maintained. There is no evidence for hydronephrosis at this point in time. No nephrolithiasis is seen. No rich s are identified. The urinary bladder is anechoic. Bilateral ureteral jets are seen. IMPRESSION: No evidence for obstructive uropathy or renal contrast.
== END | disposition home or self-care (01) ==
LOC: RADUSWWP 12:00
PROVIDERS: ATTEND Internal Medicine Nephrology
DX: N18.32 Chronic kidney disease, stage 3b (principal)
CPT/HCPCS: 76770

== ENCOUNTER → 2023-10-06 | Outpatient (CLI) | payer MEDICARE, OTHER ==
--- NOTE | 2023-10-23 11:03 | MM ---
Reason for Exam: Screening (asymptomatic). Last mammogram was performed 2 year(s) and 4 month(s) ago. Patient History: Menarche at age 10. Other cancer, age 57. Mother had breast cancer. Risk Values: Haritha 5 year model risk: 2.7%. NCI Lifetime model risk: 13.2%. Prior Study Comparison: 07/16/2001 Bilateral Screening Mammogram, [facility]. 11/30/2012 Bilateral Screening Mammogram, [facility]. 12/06/2012 Left Diagnostic Mammogram, [facility]. 05/30/2021 Bilateral Screening Mammogram, [facility]. Tissue Density: The breasts are almost entirely fatty. Findings: Analyzed By CAD. Right chest wall [id number]. Right breast: There is no suspicious group of microcalcifications or new suspicious mass. Left breast: There is no suspicious group of microcalcifications or new suspicious mass. Overall Assessment: Negative, BI-RAD 1 Management: Screening Mammogram of both breasts in [address] [facility] will attempt to contact patient to return for supplemental views and ultrasound if indicated. Patient should continue monthly self-breast exams. A clinical breast exam by your physician is recommended on an annual basis. This exam should not preclude additional follow-up of suspicious palpable abnormalities. Note on Haritha scores and lifetime risk: 1. A Haritha score greater than 3% is considered moderate risk. If this is the case, consider specialist referral to assess eligibility for a risk reducing agent. 2. If overall lifetime risk for the development of breast cancer is 20% or higher, the patient may qualify for future screening with alternating mammogram and breast MRI. Electronically signed and approved by: Paddy Duong DO
== END | disposition home or self-care (01) ==
LOC: RADMAMWWP 09-25 11:54
PROVIDERS: ATTEND Internal Medicine
DX: Z12.31 Encounter for screening mammogram for malignant neoplasm of breast (principal); Z80.3 Family history of malignant neoplasm of breast
CPT/HCPCS: 77063; 77067

== ENCOUNTER 2023-12-01 11:01 | Emergency (ER) | payer MEDICARE, OTHER ==
--- NOTE | 2023-12-01 12:16 | ED ---
General Adult HPI - General Chief complaint: Recheck/Abnormal Lab/Rx Stated complaint: Hypotension,Dizziness Time Seen by Provider: 12/01/23 12:04 Source: patient, RN notes reviewed, old records reviewed Mode of arrival: wheelchair Limitations: no limitations - History of Present Illness Initial comments: 58-year-old female presenting for evaluation of fatigue, hypotension, "low iron". Patient states she has chronic kidney disease and had outpatient lab testing and was told that her iron was low. She denies vomiting denies fever. Denies chest pain or abdominal pain. Denies dysuria. States she has poor appetite. - Related Data Home Medications Medication Instructions Recorded Confirmed Albuterol Inhaler [Ventolin Hfa 1 - 2 puff INHALATION RT-Q6H PRN 11/03/22 12/01/23 Inhaler] Aspirin EC [Ecotrin Low Dose] 81 mg PO DAILY 11/03/22 12/01/23 DULoxetine HCL [Cymbalta] 60 mg PO DAILY 11/03/22 12/01/23 Ferrous Sulfate [Iron] 325 mg PO BID 11/03/22 12/01/23 Fluticasone/Umeclidin/Vilanter 1 puff INHALATION RT-DAILY 11/03/22 12/01/23 [Trelegy Ellipta 100-62.5-25] Midodrine HCl 5 mg PO TID 11/03/22 12/01/23 Potassium Chloride ER [K-Dur 20] 20 meq PO DAILY 11/03/22 12/01/23 Budesonide [Pulmicort] 0.5 mg INHALATION RT-BID 11/28/22 12/01/23 Famotidine [Pepcid] 40 mg PO DAILY 11/28/22 12/01/23 Ipratropium-Albuterol Nebulize 3 ml INHALATION RT-Q6H PRN 11/28/22 12/01/23 [Duoneb 0.5 mg-3 mg/3 ml Soln] LORazepam [Ativan] 0.5 mg PO Q8HR PRN 11/28/22 12/01/23 Ondansetron [Zofran] 4 mg PO DAILY PRN 11/28/22 12/01/23 Rosuvastatin Calcium 5 mg PO HS 11/28/22 12/01/23 lamoTRIgine [LaMICtal] 75 mg PO HS 11/28/22 12/01/23 Cyanocobalamin (Vitamin B-12) 1,000 mcg PO DAILY 01/26/23 12/01/23 [Vitamin B-12] Gabapentin 300 mg PO TID 05/29/23 12/01/23 Pantoprazole [Protonix] 40 mg PO DAILY 06/04/23 12/01/23 Sucralfate [Carafate] 1 gm PO TID-W/MEALS 06/04/23 12/01/23 traMADol HCL 50 mg PO Q6H PRN 09/14/23 12/01/23 Megestrol [Megace] 400 mg PO DIRECTED 12/01/23 12/01/23 Vitamin D3 (Unknown Strength) 1 dose PO DAILY 12/01/23 12/01/23 Previous Rx's Medication Instructions Recorded Loperamide [Imodium] 2 mg PO QID PRN 30 Days #120 cap 02/02/23 OLANZapine ODT [ZyPREXA Zydis] 2.5 mg PO HS 30 Days #30 tab 02/02/23 Ondansetron Odt [Zofran Odt] 4 mg PO Q8HR PRN #10 tab 09/14/23 Allergies Allergy/AdvReac Type Severity Reaction Status Date / Time No Known Allergies Allergy Verified 12/01/23 13:04 Review of Systems ROS Statement: Those systems with pertinent positive or pertinent negative responses have been documented in the HPI. ROS Other: All systems not noted in ROS Statement are negative. Past Medical History Past Medical History: Asthma, Cancer, COPD, GERD/Reflux, Memory Impairment, Musculoskeletal Disorder, Osteoarthritis (OA), Sleep Apnea/CPAP/BIPAP Additional Past Medical History / Comment(s): PT STATES SOME MEMORY PROBLEMS AND LEARNING DISABILITY, HAS FRIEND WHO HELPS HER WITH MEDICATIONS AND APPTS., STATES MUSCLE SPASMS, BACK PROBLEMS WITH DISC DISEASE, ANEMIA, URINARY URGENCY, PROBLEMS WITH DIARRHEA & CONSTIPATION.Pancreatic CA diagnosed August 2022, started chemo on 11/03/22 History of Any Multi-Drug Resistant Organisms: None Reported Past Surgical History: Section, Cholecystectomy, Hysterectomy Additional Past Surgical History / Comment(s): 2 C-SECTIONS, PARTIAL HYSTERECTOMY, BERNADETTE REMOVED. States she had a stent after "yellow jaundice" due to a blockage, done [facility] Past Anesthesia/Blood Transfusion Reactions: Motion Sickness Additional Past Anesthesia/Blood Transfusion Reaction / Comment(s): STATES DIFFICULTY WAKING UP AFTER ANESTHESIA, has had two blood transfusion without incident Past Psychological History: Anxiety, Depression Smoking Status: Former smoker Past Alcohol Use History: None Reported Past Drug Use History: None Reported - Past Family History Mother Family Medical History: Cancer Additional Family Medical History / Comment(s): LUNG AND BRAIN CA General Exam Limitations: no limitations General appearance: alert, in no apparent distress Head exam: Present: atraumatic, normocephalic Eye exam: Present: normal appearance, PERRL ENT exam: Present: mucous membranes dry Neck exam: Present: normal inspection. Absent: tenderness, meningismus Respiratory exam: Present: normal lung sounds bilaterally. Absent: respiratory distress, wheezes Cardiovascular Exam: Present: regular rate, normal rhythm GI/Abdominal exam: Present: soft. Absent: distended, tenderness Neurological exam: Present: alert, oriented X3 Psychiatric exam: Present: normal affect, normal mood Skin exam: Present: pallor Course Vital Signs 12/01/23 12/01/23 12/01/23 11:05 13:05 14:11 Temperature 98.0 F Pulse Rate 98 87 86 Respiratory 18 16 18 Rate Blood Pressure 86/65 95/65 102/64 O2 Sat by Pulse 98 100 100 Oximetry Medical Decision Making - Medical Decision Making Was pt. sent in by a medical professional or institution (Dr. PA, GAUGE OPERATOR, urgent care, hospital, or assisted...) When possible be specific @ -No Did you speak to anyone other than the patient for history (EMS, parent, family, police, friend...)? What history was obtained from this source @ -No Did you review nursing and triage notes (agree or disagree)? Why? @ -I reviewed and agree with nursing and triage notes Were old charts reviewed (outside hosp., previous admission, EMS record, old EKG, old radiological studies, urgent care reports/EKG's, assisted records)? Report findings @ -No old charts were reviewed Differential Weakness: Hypoglycemia, shock, sepsis, hyponatremia, anemia, infection, IL, ETOH, adverse medicine reaction, overdose, stroke, this is not meant to be an all-inclusive list. EKG interpreted by me (3pts min.). @ -Sinus rhythm rate of 82, WA interval 166, QRS duration 80, QTc [address] segment elevation X-rays interpreted by me (1pt min.). @ -None done CT interpreted by me (1pt min.). @ -None done U/S interpreted by me (1pt. min.). @ -None done What testing was considered but not performed or refused? (CT, X-rays, U/S, labs)? Why? @ -None What meds were considered but not given or refused? Why? @ -None Did you discuss the management of the patient with other professionals (professionals i.e. Dr., PA, GAUGE OPERATOR, lab, RT, psych nurse, social media campaign manager, business development, teacher, housing management officer, rn case manager)? Give summary @ -No Was smoking cessation discussed for >3mins.? @ -No Was critical care preformed (if so, how long)? @ -No Were there social determinants of health that impacted care today? How? (Homelessness, low income, unemployed, alcoholism, drug addiction, transportation, low edu. Level, literacy, decrease access to med. care, [facility], rehab)? @ -No Was there de-escalation of care discussed even if they declined (Discuss DNR or withdrawal of care, Hospice)? DNR status @ -No What co-morbidities impacted this encounter? (DM, HTN, Smoking, COPD, CAD, Cancer, CVA, ARF, Chemo, Hep., AIDS, mental health diagnosis, sleep apnea, morb id obesity)? @ -Chronic kidney disease, chronic anemia Was patient admitted / discharged? Hospital course, mention meds given and route, prescriptions, significant lab abnormalities, going to OR and other pertinent info. @ -[58 Undiagnosed new problem with [id number] female presenting for evaluation of hypotension and anemia. Patient has chronic hypotension and does take midodrine according to her gaming cashier who is at bedside. She denies rectal bleeding. She states she is scheduled for iron transfusions. She has a hemoglobin 7 6 with no recent for comparison. Patient believes this was similar to recent laboratory testing from 1 week ago. Blood pressure normalizes in the emergency department. Laboratory testing is otherwise unremarkable. Patient stable for discharge with close outpatient follow-up. She will require close monitoring of hemoglobin and likely iron transfusions as an outpatient.n prognosis? @ -No Drug Therapy requiring intensive monitoring for toxicity (Heparin, Nitro, Insulin, Cardizem)? @ -No Were any procedures done? @ -No Diagnosis/symptom? @ -[anemia Acute, or Chronic, or Acute on Chronic? @ -Chronic Uncomplicated (without systemic symptoms) or Complicated (systemic symptoms)? @ -[default Side effects of treatment? @ -No Exacerbation, Progression, or Severe Exacerbation? @ -No Poses a threat to life or bodily function? How? (Chest pain, USA, IL, pneumonia, PE, COPD, DKA, ARF, appy, cholecystitis, CVA, Diverticulitis, Homicidal, Suicid al, threat to staff... and all critical care pts) @ -[low risk - Lab Data Result diagrams: 12/01/23 12:58 12/01/23 12:58 Lab Results 12/01/23 12/01/23 12/01/23 Range/Units 12:58 12:58 12:58 WBC 6.2 (3.8-10.6) k/uL RBC 2.68 L (3.80-5.40) m/uL Hgb 7.6 L (11.4-16.0) gm/dL Hct 22.6 L (34.0-46.0) % MCV 84.3 (80.0-100.0) fL MCH 28.3 (25.0-35.0) pg MCHC 33.5 (31.0-37.0) g/dL RDW 16.2 H (11.5-15.5) % Plt Count 211 (150-450) k/uL MPV 8.4 Neutrophils % 85 % Lymphocytes % 8 % Monocytes % 6 % Eosinophils % 0 % Basophils % 0 % Neutrophils # 5.2 (1.3-7.7) k/uL Lymphocytes # 0.5 L (1.0-4.8) k/uL Monocytes # 0.4 (0-1.0) k/uL Eosinophils # 0.0 (0-0.7) k/uL Basophils # 0.0 (0-0.2) k/uL Hypochromasia Slight Anisocytosis Slight PT 10.8 (10.0-12.5) sec INR 1.0 (<1.2) APTT 20.7 L (22.0-30.0) sec Sodium 133 L (137-145) mmol/L Potassium 4.1 (3.5-5.1) mmol/L Chloride 103 (98-107) mmol/L Carbon Dioxide 24 (22-30) mmol/L Anion Gap 6 mmol/L BUN 19 H (7-17) mg/dL Creatinine 0.80 (0.52-1.04) mg/dL Est GFR (CKD-EPI)AfAm >90 (>60 ml/min/1.73 sqM) Est GFR (CKD-EPI)NonAf 81 (>60 ml/min/1.73 sqM) Glucose 107 H (74-99) mg/dL Plasma Lactic Acid Mak (0.7-2.0) mmol/L Calcium 9.2 (8.4-10.2) mg/dL Magnesium 1.9 (1.6-2.3) mg/dL Total Bilirubin 1.3 (0.2-1.3) mg/dL AST 79 H (14-36) U/L ALT 106 H (4-34) U/L Alkaline Phosphatase 427 H (38-126) U/L Total Protein 5.6 L (6.3-8.2) g/dL Albumin 2.9 L (3.5-5.0) g/dL Blood Type Blood Type Recheck Bld Type Recheck Status Antibody Screen Spec Expiration Date 12/01/23 12/01/23 Range/Units 12:58 13:15 WBC (3.8-10.6) k/uL RBC (3.80-5.40) m/uL Hgb (11.4-16.0) gm/dL Hct (34.0-46.0) % MCV (80.0-100.0) fL MCH (25.0-35.0) pg MCHC (31.0-37.0) g/dL RDW (11.5-15.5) % Plt Count (150-450) k/uL MPV Neutrophils % % Lymphocytes % % Monocytes % % Eosinophils % % Basophils % % Neutrophils # (1.3-7.7) k/uL Lymphocytes # (1.0-4.8) k/uL Monocytes # (0-1.0) k/uL Eosinophils # (0-0.7) k/uL Basophils # (0-0.2) k/uL Hypochromasia Anisocytosis PT (10.0-12.5) sec INR (<1.2) APTT (22.0-30.0) sec Sodium (137-145) mmol/L Potassium (3.5-5.1) mmol/L Chloride (98-107) mmol/L Carbon Dioxide (22-30) mmol/L Anion Gap mmol/L BUN (7-17) mg/dL Creatinine (0.52-1.04) mg/dL Est GFR (CKD-EPI)AfAm (>60 ml/min/1.73 sqM) Est GFR (CKD-EPI)NonAf (>60 ml/min/1.73 sqM) Glucose (74-99) mg/dL Plasma Lactic Acid Mak 1.0 (0.7-2.0) mmol/L Calcium (8.4-10.2) mg/dL Magnesium (1.6-2.3) mg/dL Total Bilirubin (0.2-1.3) mg/dL AST (14-36) U/L ALT (4-34) U/L Alkaline Phosphatase (38-126) U/L Total Protein (6.3-8.2) g/dL Albumin (3.5-5.0) g/dL Blood Type A Negative Blood Type Recheck A Neg Bld Type Recheck Status No Antibody Screen NEGATIVE Spec Expiration Date 12/04/20232314 Disposition Clinical Impression: Anemia Disposition: HOME SELF-CARE Condition: Fair Instructions (If sedation given, give patient instructions): Anemia (ED) Additional Instructions: Please continue oral iron until iron transfusions are scheduled. Please have repeat laboratory testing performed by your primary care provider, car sales associate or group fitness assistant department head. Please return to the emergency department with worsening or changing symptoms. Is patient prescribed a controlled substance at d/c from ED?: No Referrals: Michael Leal MD [Primary Care Provider] - 1-2 days Time of Disposition: 14:31
[2023-12-01] MEDS: SODIUM CHLORIDE 0.9% 500 ML 500 ML IV STA (12:55)
[2023-12-01 13:05] LABS: Anisocytosis Slight; Basophils % (A) 0 %; Eosinophils % (A) 0 %; HCT 22.6 % (34.0-46.0); HGB 7.6 gm/dL (11.4-16.0); Hypochromasia Slight; Lymphocytes # (A) 0.5 k/uL (1.0-4.8); Lymphocytes % (A) 8 %; MCH 28.3 pg (25.0-35.0); MCHC 33.5 g/dL (31.0-37.0); MCV 84.3 fL (80.0-100.0); Mean Platelet Volume 8.4; Monocytes # (A) 0.4 k/uL (0-1.0); Monocytes % (A) 6 %; Neutrophils # (A) 5.2 k/uL (1.3-7.7); Neutrophils % (A) 85 %; Platelet Count 211 k/uL (150-450); RBC 2.68 m/uL (3.80-5.40); RDW 16.2 % (11.5-15.5); WBC 6.2 k/uL (3.8-10.6)
[2023-12-01 13:19] LABS: ALT 106 U/L (4-34); AST 79 U/L (14-36); African American GFR (CKD) >90 (>60 ml/min/1.73 sqM); Albumin 2.9 g/dL (3.5-5.0); Alkaline Phosphatase 427 U/L (38-126); Anion Gap 6 mmol/L; Blood Urea Nitrogen 19 mg/dL (7-17); Calcium 9.2 mg/dL (8.4-10.2); Carbon Dioxide 24 mmol/L (22-30); Chloride 103 mmol/L (98-107); Glucose 107 mg/dL (74-99); Magnesium 1.9 mg/dL (1.6-2.3); Non-African American GFR(CKD) 81 (>60 ml/min/1.73 sqM); Potassium 4.1 mmol/L (3.5-5.1); Sodium 133 mmol/L (137-145); Total Bilirubin 1.3 mg/dL (0.2-1.3); Total Protein 5.6 g/dL (6.3-8.2)
[2023-12-01 13:28] LABS: Partial Thromboplastin Time 20.7 sec (22.0-30.0); Prothrombin Time 10.8 sec (10.0-12.5)
[2023-12-01 14:12] VITALS: PULSE 86
[2023-12-01 15:46] VITALS: BP 103/68; RESP 16; TEMP 98.6
== END 2023-12-01 15:25 | disposition home or self-care (01) ==
LOC: EC 11:01
CPT/HCPCS: 36415; 80053; 83605; 83735; 85025; 85610; 85730; 86850; 86900; 86901; 93005; 96361; 96374; 99284

== ENCOUNTER 2023-12-11 15:48 | Emergency (ER) | payer MEDICARE, OTHER ==
--- NOTE | 2023-12-11 17:21 | ED ---
Weakness HPI - General Source: patient Mode of arrival: ambulatory Limitations: no limitations - History of Present Illness MD Complaint: generalized weakness, lack of energy Onset/Timin -: week(s) <Macho Way - Last Filed: 12/11/23 17:18> - General Source: patient, RN notes reviewed, Caregiver <Jessica Carbajal - Last Filed: 12/12/23 00:16> <Kishore Yen - Last Filed: 12/12/23 01:41> - General Chief complaint: Weakness Stated complaint: light headed Time Seen by Provider: 12/11/23 17:06 - History of Present Illness Initial comments: Quick note: This is a 4-year-old female presenting with weakness, dizziness, lethargy, shortness of breath and more frequent falls x 4 weeks. Patient endorses history of iron deficient anemia and hypotension. Patient states she required he receives iron infusions bimonthly. Patient states symptoms are similar to prior incidence of acute anemia. Patient denies constant chest pain, chest tightness, abdominal pain. (Macho Way) 58-year-old female with history of anemia and chronic hypotension presenting to the ER with caregiver with generalized weakness over the past 4 weeks with lightheadedness, lethargy, shortness of breath with exertion, and frequent falls. Patient reports she was recently in the ER for similar symptoms 10 days ago where they told her her hemoglobin was low and she was advised to have frequent rechecks. Patient is scheduled for iron infusion on December 15 and December 22. She decided to seek evaluation in the ER as she states she had 2 falls this morning due to lightheadedness. Denies hitting head or injuries from the falls. Denies losing consciousness. She states she has previous pancreatic cancer and is currently in remission. Denies blood thinners. She does take midodrine for hypotension. Denies rectal bleeding, abdominal pain, chest pain. (Jessica Carbajal) - Related Data Home Medications Medication Instructions Recorded Confirmed Albuterol Inhaler [Ventolin Hfa 1 - 2 puff INHALATION RT-Q6H PRN 11/03/22 12/01/23 Inhaler] Aspirin EC [Ecotrin Low Dose] 81 mg PO DAILY 11/03/22 12/01/23 DULoxetine HCL [Cymbalta] 60 mg PO DAILY 11/03/22 12/01/23 Ferrous Sulfate [Iron] 325 mg PO BID 11/03/22 12/01/23 Fluticasone/Umeclidin/Vilanter 1 puff INHALATION RT-DAILY 11/03/22 12/01/23 [Trelegy Ellipta 100-62.5-25] Midodrine HCl 5 mg PO TID 11/03/22 12/01/23 Potassium Chloride ER [K-Dur 20] 20 meq PO DAILY 11/03/22 12/01/23 Budesonide [Pulmicort] 0.5 mg INHALATION RT-BID 11/28/22 12/01/23 Famotidine [Pepcid] 40 mg PO DAILY 11/28/22 12/01/23 Ipratropium-Albuterol Nebulize 3 ml INHALATION RT-Q6H PRN 11/28/22 12/01/23 [Duoneb 0.5 mg-3 mg/3 ml Soln] LORazepam [Ativan] 0.5 mg PO Q8HR PRN 11/28/22 12/01/23 Ondansetron [Zofran] 4 mg PO DAILY PRN 11/28/22 12/01/23 Rosuvastatin Calcium 5 mg PO HS 11/28/22 12/01/23 lamoTRIgine [LaMICtal] 75 mg PO HS 11/28/22 12/01/23 Cyanocobalamin (Vitamin B-12) 1,000 mcg PO DAILY 01/26/23 12/01/23 [Vitamin B-12] Gabapentin 300 mg PO TID 05/29/23 12/01/23 Pantoprazole [Protonix] 40 mg PO DAILY 06/04/23 12/01/23 Sucralfate [Carafate] 1 gm PO TID-W/MEALS 06/04/23 12/01/23 traMADol HCL 50 mg PO Q6H PRN 09/14/23 12/01/23 Megestrol [Megace] 400 mg PO DIRECTED 12/01/23 12/01/23 Vitamin D3 (Unknown Strength) 1 dose PO DAILY 12/01/23 12/01/23 Previous Rx's Medication Instructions Recorded Loperamide [Imodium] 2 mg PO QID PRN 30 Days #120 cap 02/02/23 OLANZapine ODT [ZyPREXA Zydis] 2.5 mg PO HS 30 Days #30 tab 02/02/23 Ondansetron Odt [Zofran Odt] 4 mg PO Q8HR PRN #10 tab 09/14/23 Allergies Allergy/AdvReac Type Severity Reaction Status Date / Time No Known Allergies Allergy Verified 12/11/23 16:03 Review of Systems ROS Other: All systems not noted in ROS Statement are negative. <Macho Way - Last Filed: 12/11/23 17:18> ROS Other: All systems not noted in ROS Statement are negative. <Jessica Carbajal - Last Filed: 12/12/23 00:16> ROS Other: All systems not noted in ROS Statement are negative. <Kishore Yen - Last Filed: 12/12/23 01:41> ROS Statement: Those systems with pertinent positive or pertinent negative responses have been documented in the HPI. Past Medical History Past Medical History: Asthma, Cancer, COPD, GERD/Reflux, Memory Impairment, Musculoskeletal Disorder, Osteoarthritis (OA), Sleep Apnea/CPAP/BIPAP Additional Past Medical History / Comment(s): PT STATES SOME MEMORY PROBLEMS AND LEARNING DISABILITY, HAS FRIEND WHO HELPS HER WITH MEDICATIONS AND APPTS., STATES MUSCLE SPASMS, BACK PROBLEMS WITH DISC DISEASE, ANEMIA, URINARY URGENCY, PROBLEMS WITH DIARRHEA & CONSTIPATION.Pancreatic CA diagnosed August 2022, started chemo on 11/03/22 History of Any Multi-Drug Resistant Organisms: None Reported Past Surgical History: Section, Cholecystectomy, Hysterectomy Additional Past Surgical History / Comment(s): 2 C-SECTIONS, PARTIAL HYSTERECTOMY, BERNADETTE REMOVED. States she had a stent after "yellow jaundice" due to a blockage, done [facility] Past Anesthesia/Blood Transfusion Reactions: Motion Sickness Additional Past Anesthesia/Blood Transfusion Reaction / Comment(s): STATES DIFFICULTY WAKING UP AFTER ANESTHESIA, has had two blood transfusion without incident Past Psychological History: Anxiety, Depression Smoking Status: Former smoker Past Alcohol Use History: None Reported Past Drug Use History: None Reported - Past Family History Mother Family Medical History: Cancer Additional Family Medical History / Comment(s): LUNG AND BRAIN CA <Macho Way - Last Filed: 12/11/23 17:18> General Exam Limitations: no limitations <Macho Way - Last Filed: 12/11/23 17:18> - General Exam Comments Initial Comments: Visual Physical Exam Vital signs reviewed General: Well-appearing, nontoxic, no acute distress. Head: Normocephalic, atraumatic Eyes: PERRLA, EOMI ENT: Airway patent Chest: Nonlabored breathing Skin: No visual rash, normal skin tone Neuro: Alert and oriented 3 Musculoskeletal: No gross abnormalities (Macho Way) Course Vital Signs 12/11/23 12/12/23 12/12/23 15:58 00:03 00:21 Temperature 98.3 F Pulse Rate 85 70 70 Respiratory 20 17 17 Rate Blood Pressure 86/57 102/68 102/66 O2 Sat by Pulse 100 99 Oximetry EKG Findings - EKG Results: EKG: interpreted by ERMD (EKG reveals normal sinus rhythm with no ST changes. Ventricular rate 69 bpm, LA interval 154, QRS duration 73, QT/QTc 368/388) <Jessica Carbajal - Last Filed: 12/12/23 00:16> Medical Decision Making <Macho Way - Last Filed: 12/11/23 17:18> - Lab Data Result diagrams: 12/11/23 22:39 <Jessica Carbajal - Last Filed: 12/12/23 00:16> - Lab Data Result diagrams: 12/11/23 22:39 12/11/23 22:39 <Kishore Yen - Last Filed: 12/12/23 01:41> - Medical Decision Making I completed the quick note portion of this chart signed NEELAM Song ([address]) Was pt. sent in by a medical professional or institution (MAZIN Blancas, ROLL OFF DRIVER, urgent care, hospital, or fdc...) When possible be specific @ -No Did you speak to anyone other than the patient for history (EMS, parent, family, police, friend...)? What history was obtained from this source @ -Caregiver supplemented history Did you review nursing and triage notes (agree or disagree)? Why? @ -I reviewed and agree with nursing and triage notes Were old charts reviewed (outside hosp., previous admission, EMS record, old EKG, old radiological studies, urgent care reports/EKG's, fdc records)? Report findings @ -Previous ER visits reviewed including lab work Differential Diagnosis (chest pain, altered mental status, abdominal pain women, abdominal pain men, vaginal bleeding, weakness, fever, dyspnea, syncope, headache, dizziness, GI bleed, back pain, seizure, CVA, palpatations, mental health, musculoskeletal)? @ -Differential Weakness: Hypoglycemia, shock, sepsis, hyponatremia, anemia, infection, MD, ETOH, adverse medicine reaction, overdose, stroke, this is not meant to be an all-inclusive list. EKG interpreted by me (3pts min.). @ -As above X-rays interpreted by me (1pt min.). @ -Chest x-ray reveals no acute process CT interpreted by me (1pt min.). @ -None done U/S interpreted by me (1pt. min.). @ -None done What testing was considered but not performed or refused? (CT, X-rays, U/S, labs)? Why? @ -Considered CT head and additional lab work however patient declines and would like to be discharged What meds were considered but not given or refused? Why? @ -None Did you discuss the management of the patient with other professionals (professionals i.e. , PA, ROLL OFF DRIVER, lab, RT, psych nurse, psychotherapist social worker, batch tester, teacher, combatant diver officer, porter sample case)? Give summary @ -No Was smoking cessation discussed for >3mins.? @ -No Was critical care preformed (if so, how long)? @ -No Were there social determinants of health that impacted care today? How? (Homelessness, low income, unemployed, alcoholism, drug addiction, transportation, low edu. Level, literacy, decrease access to med. care, penitentiary, rehab)? @ -No Was there de-escalation of care discussed even if they declined (Discuss DNR or withdrawal of care, Hospice)? DNR status @ -No What co-morbidities impacted this encounter? (DM, HTN, Smoking, COPD, CAD, Cancer, CVA, ARF, Chemo, Hep., AIDS, mental health diagnosis, sleep apnea, morbid obesity)? @ -None Was patient admitted / discharged? Hospital course, mention meds given and route, prescriptions, significant lab abnormalities, going to OR and other pertinent info. @ -This is a 58-year-old female presenting for generalized weakness increasing over the past 4 weeks with associated shortness of breath and frequent falls. Patient does have a history of chronic hypotension and anemia, is scheduled for iron transfusion on December 15. Patient was recently seen in the ER for similar symptoms where her hemoglobin was found to be 7.6. Blood pressure 86/57, otherwise vitals within acceptable limits. No acute distress. EKG reveals normal sinus rhythm with no ST changes. Chest x-ray reveals no acute process. CBC remarkable for hemoglobin of 9.4 which is improved from value 10 days ago of 7.6. Troponin and coags unremarkable. Iron profile sent. Patient and anthropologist were updated on findings. On reevaluation, blood pressure increases to 102/68. Discussed option of admission/further testing for symptoms, however patient reports she would like to be discharged. CMP pending at this time, however pt will be discharged by Dr. Yen if no concerns arise on CMP. Patient reports she will follow-up with PCP for further evaluation. Return precuations discussed. Case was discussed with my ED attending Dr. Yen. Undiagnosed new problem with uncertain prognosis? @ -No Drug Therapy requiring intensive monitoring for toxicity (Heparin, Nitro, Insulin, Cardizem)? @ -No Were any procedures done? @ -No Diagnosis/symptom? @ -Generalized weakness Acute, or Chronic, or Acute on Chronic? @ -Acute Uncomplicated (without systemic symptoms) or Complicated (systemic symptoms)? @ -Complicated Side effects of treatment? @ -No Exacerbation, Progression, or Severe Exacerbation? @ -No Poses a threat to life or bodily function? How? (Chest pain, USA, MD, pneumonia, PE, COPD, DKA, ARF, appy, cholecystitis, CVA, Diverticulitis, Homicidal, Suicidal, threat to staff... and all critical care pts) @ -Unlikely at this time (Jessica Carbajal) - Lab Data Lab Results 12/11/23 12/11/23 12/11/23 Range/Units 22:39 22:39 22:39 WBC 6.5 (3.8-10.6) k/uL RBC 3.37 L (3.80-5.40) m/uL Hgb 9.4 L D (11.4-16.0) gm/dL Hct 29.2 L (34.0-46.0) % MCV 86.4 (80.0-100.0) fL MCH 27.8 (25.0-35.0) pg MCHC 32.1 (31.0-37.0) g/dL RDW 15.7 H (11.5-15.5) % Plt Count 244 (150-450) k/uL MPV 8.0 Neutrophils % 79 % Lymphocytes % 11 % Monocytes % 6 % Eosinophils % 2 % Basophils % 0 % Neutrophils # 5.2 (1.3-7.7) k/uL Lymphocytes # 0.7 L (1.0-4.8) k/uL Monocytes # 0.4 (0-1.0) k/uL Eosinophils # 0.1 (0-0.7) k/uL Basophils # 0.0 (0-0.2) k/uL Hypochromasia Moderate PT 10.7 (10.0-12.5) sec INR 1.0 (<1.2) Sodium (137-145) mmol/L Potassium (3.5-5.1) mmol/L Chloride (98-107) mmol/L Carbon Dioxide (22-30) mmol/L Anion Gap mmol/L BUN (7-17) mg/dL Creatinine (0.52-1.04) mg/dL Est GFR (CKD-EPI)AfAm (>60 ml/min/1.73 sqM) Est GFR (CKD-EPI)NonAf (>60 ml/min/1.73 sqM) Glucose (74-99) mg/dL Calcium (8.4-10.2) mg/dL Total Bilirubin (0.2-1.3) mg/dL AST (14-36) U/L ALT (4-34) U/L Alkaline Phosphatase (38-126) U/L Troponin I <0.012 (0.000-0.034) ng/mL Total Protein (6.3-8.2) g/dL Albumin (3.5-5.0) g/dL 12/11/23 Range/Units 22:39 WBC (3.8-10.6) k/uL RBC (3.80-5.40) m/uL Hgb (11.4-16.0) gm/dL Hct (34.0-46.0) % MCV (80.0-100.0) fL MCH (25.0-35.0) pg MCHC (31.0-37.0) g/dL RDW (11.5-15.5) % Plt Count (150-450) k/uL MPV Neutrophils % % Lymphocytes % % Monocytes % % Eosinophils % % Basophils % % Neutrophils # (1.3-7.7) k/uL Lymphocytes # (1.0-4.8) k/uL Monocytes # (0-1.0) k/uL Eosinophils # (0-0.7) k/uL Basophils # (0-0.2) k/uL Hypochromasia PT (10.0-12.5) sec INR (<1.2) Sodium 133 L (137-145) mmol/L Potassium 4.4 (3.5-5.1) mmol/L Chloride 105 (98-107) mmol/L Carbon Dioxide 23 (22-30) mmol/L Anion Gap 5 mmol/L BUN 14 (7-17) mg/dL Creatinine 0.65 (0.52-1.04) mg/dL Est GFR (CKD-EPI)AfAm >90 (>60 ml/min/1.73 sqM) Est GFR (CKD-EPI)NonAf >90 (>60 ml/min/1.73 sqM) Glucose 112 H (74-99) mg/dL Calcium 9.1 (8.4-10.2) mg/dL Total Bilirubin 1.6 H (0.2-1.3) mg/dL AST 135 H (14-36) U/L ALT 100 H (4-34) U/L Alkaline Phosphatase 716 H (38-126) U/L Troponin I (0.000-0.034) ng/mL Total Protein 6.3 (6.3-8.2) g/dL Albumin 3.1 L (3.5-5.0) g/dL Disposition <Macho Way - Last Filed: 12/11/23 17:18> Is patient prescribed a controlled substance at d/c from ED?: No Time of Disposition: 00:25 <Jessica Carbajal - Last Filed: 12/12/23 00:16> <Kishore Yen - Last Filed: 12/12/23 01:41> Clinical Impression: Generalized weakness Disposition: HOME SELF-CARE Condition: Stable Additional Instructions: Follow-up with PCP in 1 to 3 days for reevaluation. Please return to the Emergency Department if symptoms worsen or any other concerns. Discussed, your alkaline phosphatase level has increased, follow with your physician to ensure this does not represent recurrence. Referrals: Michael Leal MD [Primary Care Provider] - 1-2 days
--- NOTE | 2023-12-11 20:55 | XR ---
EXAMINATION TYPE: XR chest 2V DATE OF EXAM: 12/11/2023 COMPARISON: 06-03-2023 INDICATION: short of breath TECHNIQUE: Frontal and lateral views of the chest are obtained. FINDINGS: The heart size is normal. The pulmonary vasculature is normal. The lungs are clear. Port is on the right with tip in the distal superior vena cava region. IMPRESSION: 1. No acute pulmonary process. [facility], Workstation: [facility], 12/11/2023 8:53 PM
[2023-12-11 23:18] LABS: Basophils % (A) 0 %; Eosinophils # (A) 0.1 k/uL (0-0.7); Eosinophils % (A) 2 %; HCT 29.2 % (34.0-46.0); Hypochromasia Moderate; Lymphocytes # (A) 0.7 k/uL (1.0-4.8); Lymphocytes % (A) 11 %; MCH 27.8 pg (25.0-35.0); MCHC 32.1 g/dL (31.0-37.0); MCV 86.4 fL (80.0-100.0); Monocytes # (A) 0.4 k/uL (0-1.0); Monocytes % (A) 6 %; Neutrophils # (A) 5.2 k/uL (1.3-7.7); Neutrophils % (A) 79 %; Platelet Count 244 k/uL (150-450); RBC 3.37 m/uL (3.80-5.40); RDW 15.7 % (11.5-15.5); WBC 6.5 k/uL (3.8-10.6)
[2023-12-11 23:24] LABS: HGB 9.4 gm/dL (11.4-16.0)
[2023-12-11 23:26] LABS: Prothrombin Time 10.7 sec (10.0-12.5)
[2023-12-12 00:04] VITALS: RESP 17
[2023-12-12 00:23] LABS: ALT 100 U/L (4-34); AST 135 U/L (14-36); African American GFR (CKD) >90 (>60 ml/min/1.73 sqM); Albumin 3.1 g/dL (3.5-5.0); Alkaline Phosphatase 716 U/L (38-126); Anion Gap 5 mmol/L; Blood Urea Nitrogen 14 mg/dL (7-17); Calcium 9.1 mg/dL (8.4-10.2); Carbon Dioxide 23 mmol/L (22-30); Chloride 105 mmol/L (98-107); Glucose 112 mg/dL (74-99); Non-African American GFR(CKD) >90 (>60 ml/min/1.73 sqM); Potassium 4.4 mmol/L (3.5-5.1); Sodium 133 mmol/L (137-145); Total Bilirubin 1.6 mg/dL (0.2-1.3); Total Protein 6.3 g/dL (6.3-8.2)
[2023-12-12 01:50] VITALS: BP 98/67; PULSE 76; TEMP 98.7
[2023-12-12 02:55] LABS: % Iron Saturation 9.86 (12.00-45.00)
== END 2023-12-12 01:55 | disposition home or self-care (01) ==
LOC: EC 15:48
CPT/HCPCS: 36415; 71046; 80053; 83540; 83550; 84484; 85025; 85610; 93005; 99285

== ENCOUNTER → 2023-12-22 | Outpatient (CLI) | payer MEDICARE, OTHER ==
[2023-12-22 13:55] LABS: African American GFR (CKD) 81 (>60 ml/min/1.73 sqM); Blood Urea Nitrogen 15 mg/dL (7-17); Non-African American GFR(CKD) 70 (>60 ml/min/1.73 sqM)
--- NOTE | 2023-12-25 20:19 | CT ---
EXAMINATION TYPE: CT ChestAbdPelvis w con DATE OF EXAM: 12/22/2023 INDICATION: Suspected mets. History of pancreatic cancer COMPARISON: 03/03/2023 CT DLP: 956 mGycm CONTRAST: Performed with Oral Contrast and with IV Contrast, patient injected with 100 mL of Isovue 370. TECHNIQUE: Axial images at 5 mm thick sections. Reconstructed images in the coronal plane. Delayed images through the kidneys. FINDINGS: CT CHEST: Portion of the thyroid visualized is normal. No suspicious lung nodules or focal infiltrates are present. No enlarged mediastinal or hilar adenopathy is evident. The ascending aorta diameter at the level of the main pulmonary artery is 2.4 cm. The main pulmonary artery diameter at the bifurcation is 2.[address] ABDOMEN: Liver: Biliary air is present. There are dilated biliary ducts present. There appears to be a stent t hrough the pancreatic head. Spleen: Normal Pancreas: Pancreas is hypodense. Large dilated pancreatic duct is within the head and body of the mcfarlane creas. Tail of the pancreas is atrophic with dilated duct. Adrenal glands: The adrenal glands are normal. Gallbladder: Normal Kidneys: No masses are evident. No hydronephrosis is present. No cysts are present. Aorta: Vascular calcification is within the aorta. Inferior vena cava: Normal. CT PELVIS: Loops of bowel within the abdomen and pelvis are normal. There are loops of bowel which are incom pletely distended or lack oral contrast limiting their evaluation. Appendix: Not identified. Urinary bladder: Normal. Genitourinary structures: Uterus and ovaries are not identified. Osseous structures: No suspicious lytic or sclerotic lesions. IMPRESSION: 1. Hypodense head and proximal body of pancreas with pancreatic tail atrophy. Dilated pancreatic duct is present. Diffuse neoplasm may be present. This is worsened over the interval. 2. Air-filled hepatic biliary ducts due to stenting. [facility], Workstation: [facility], 12/25/2023 8:16 PM
== END | disposition home or self-care (01) ==
LOC: RADCTMAIN 13:05
PROVIDERS: ATTEND Internal Medicine Hematology & Oncology
DX: C25.0 Malignant neoplasm of head of pancreas (principal); K72.90 Hepatic failure, unspecified without coma; K83.8 Other specified diseases of biliary tract
CPT/HCPCS: 82565; 84520; 71260; 74177; 36415; Q9967

== ENCOUNTER 2024-01-13 11:02 | Day surgery (SDC) | payer MEDICARE, OTHER ==
[2024-01-12 10:38] VITALS: BMI 24.6
[2024-01-13] MEDS: IV FLUID CONTINUATION 1,000 ML IV ONE (11:40)
[2024-01-13 11:49] VITALS: TEMP 97.1
[2024-01-13] MEDS: LACTATED RINGERS 1,000 ML IV SCH (12:01)
[2024-01-13] MEDS ORDERED: LIDOCAINE HCL/PF 20 MG/ML 10 ML AMP ONE (12:56)
[2024-01-13] MEDS ORDERED: PROPOFOL 10 MG/ML 20 ML VIAL IV ONE (12:56)
--- NOTE | 2024-01-13 13:05 | P.PCN ---
Date of Procedure: 01/13/24 Procedure(s) Performed: BRIEF HISTORY: Patient is a 58-year-old, pleasant, white female skilled for an upper endoscopy as a part evaluation of severe epigastric pain for the last few months duration. She was diagnosed with pancreatic cancer August 2022 and has undergoing chemotherapy. Lately has been having severe epigastric pain and progressive weight loss. She also has longstanding history of GERD and Reina's esophagus and has been on Protonix 40 mg twice daily. Because of the persistent epigastric pain she is called for an upper endoscopy to rule out upper GI pathology PROCEDURE PERFORMED: Esophagogastroduodenoscopy with biopsy. PREOPERATIVE DIAGNOSIS: Severe epigastric pain/history of GERD/history of pancreatic cancer. IV sedation per anesthesia. PROCEDURE: After informed consent was obtained, the patient was brought into the endoscopy unit. IV sedation was administered by Anesthesia under continuous monitoring. Initially the Olympus GIF-140 video endoscope was inserted into the mouth. Esophagus intubated without any difficulty. It was gradually advanced into the stomach and duodenum and carefully examined. The bulb and the second part of the duodenum appeared normal. The scope at this time was withdrawn to the stomach, adequately insufflated with air, and upon careful examination, mucosa of the antrum, 5 mm superficial antral ulcer and antral gastritis noted and biopsies were done from this area. Mucosa of the body, cardia and the fundus appeared normal. The scope was then withdrawn into the esophagus. Size hiatal hernia noted. The GE junction was located at 28 cm from the incisors. There was Reina's esophagus extending from 26 to 28 cm from the incisors and biopsies were done from this area. The rest of the esophagus appeared normal. There were no erosions or ulcerations seen and the patient tolerated the procedure well. IMPRESSION: 1. Short segment Reina's esophagus extending from 26 to 28 cm from the incisors status post biopsy. 2. Moderate size hiatal hernia 3. Early distal esophageal stricture 4. 5 mm superficial antral ulcer. RECOMMENDATIONS: The findings of this examination were discussed with the patient as well as her family. She was advised to follow-up with the biopsy results. Continue with Protonix 40 mg twice daily and follow antireflux measures..
[2024-01-13 13:31] VITALS: RESP 14
[2024-01-13 13:49] VITALS: BP 110/77; PULSE 98
== END 2024-01-13 13:58 | disposition home or self-care (01) ==
LOC: ORWHC2ENDO 11:02
PROVIDERS: ATTEND Internal Medicine Gastroenterology
DX: K25.9 Gastric ulcer, unspecified as acute or chronic, without hemorrhage or perforation (principal); K22.2 Esophageal obstruction; K21.9 Gastro-esophageal reflux disease without esophagitis; K22.70 Barrett's esophagus without dysplasia; K44.9 Diaphragmatic hernia without obstruction or gangrene; K29.70 Gastritis, unspecified, without bleeding; Z79.899 Other long term (current) drug therapy; Z85.07 Personal history of malignant neoplasm of pancreas; Z98.890 Other specified postprocedural states; Z92.21 Personal history of antineoplastic chemotherapy
CPT/HCPCS: 88305; 88342; 43239; J2003; J2704

== ENCOUNTER → 2024-04-30 | Outpatient (CLI) | payer MEDICARE, OTHER ==
--- NOTE | 2024-04-30 13:30 | MR ---
EXAMINATION TYPE: MR brain wo/w con DATE OF EXAM: 04/30/2024 1:13 PM COMPARISON: None. CLINICAL INDICATION: Female, 58 years old with history of C25.0 MALIGNANT NEOPLASM OF HEAD OF PANCREA S, Pancreatic cancer, possible mets IV Contrast: 5 cc Gadobutrol (None if empty) TECHNIQUE: Multiplanar, multisequence images of the brain and brainstem is performed without and with IV contras t, utilizing 5 mL intravenous Gadobutrol . FINDINGS: Diffusion weighted images demonstrate no evidence of a recent infarct or other diffusion ab normality. There is no extra-axial fluid collection or significant white matter signal abnormality. The ventricular system and cisternal spaces are normal in size and appearance. The brain volume is age appropriate. Midline structures demonstrate normal morphology. The craniocervical junction appears within normal limits. Post contrast images demonstrate no abnormal enhancement. The dural venous sinuses appear pa tent. The visualized sinuses are clear and the globes are intact. IMPRESSION: No significant abnormality seen. No evidence of metastatic disease. [facility], , 04/30/2024 1:27 PM
== END | disposition home or self-care (01) ==
LOC: RADMRIMAIN 12:31
PROVIDERS: ATTEND Internal Medicine Hematology & Oncology
DX: C25.0 Malignant neoplasm of head of pancreas (principal)
CPT/HCPCS: 70553; A9585

== ENCOUNTER 2024-06-30 15:59 | Emergency (ER) | payer MEDICARE, OTHER ==
[2024-06-30 16:06] VITALS: TEMP 97.9
--- NOTE | 2024-06-30 16:36 | ED ---
Abdominal Pain HPI - General Source: patient, RN notes reviewed Mode of arrival: wheelchair Limitations: no limitations <Macho Way - Last Filed: 06/30/24 16:33> <Chucky Bonilla - Last Filed: 06/30/24 20:37> - General Chief Complaint: Abdominal Pain Stated Complaint: Abd Pain Time Seen by Provider: 06/30/24 16:17 - History of Present Illness Initial Comments: Quick note: This is a 59-year-old female with history including pancreatic cancer, cholecystectomy, hysterectomy and COPD presenting with diffuse abdominal pain (12/02) x 3 days. Patient states she has been having chronic postprandial nausea with occasional vomiting, undergoing ERCP and having a biliary stent placed at [facility] at the end of April with postprandial nausea despite procedure. Patient states she is continuing to lose weight and have night sweats. Denies fever, chills, chest pain, dyspnea, hematemesis, diarrhea, constipation, urinary symptoms. (Macho Wya) Dictation was produced using Owl[employer] dictation software. please excuse any grammatical, word or spelling errors. Chief Complaint: 59-year-old female with abdominal pain and poor appetite History of Present Illness: Patient 59-year-old female is has extensive abdominal history. Patient states that in April of this year she had ERCP performed for pancreatic blockage. According to patient patient and caregiver she was seen at outside hospital where a pancreatic stent was placed via ERCP for pancreatic blockage from what business operations director describes as liver obstruction. Patient states that for the last couple weeks has been having worsening appetite. States that she gets severely nauseated with eating. Complains of some generalized vague abdominal pain. Denies any fever chills or night sweats. The ROS documented in this emergency department record has been reviewed and confirmed by me. Those systems with pertinent positive or negative responses have been documented in the HPI. All other systems are other negative and/or noncontributory. (Chucky Bonilla) - Related Data Home Medications Medication Instructions Recorded Confirmed Aspirin EC [Ecotrin Low Dose] 81 mg PO DAILY 11/03/22 01/13/24 DULoxetine HCL [Cymbalta] 60 mg PO DAILY 11/03/22 01/13/24 Ferrous Sulfate [Iron] 325 mg PO BID 11/03/22 01/13/24 Midodrine HCl 5 mg PO TID 11/03/22 01/13/24 Potassium Chloride ER [K-Dur 20] 20 meq PO DAILY 11/03/22 01/13/24 Famotidine [Pepcid] 40 mg PO DAILY 11/28/22 01/13/24 LORazepam [Ativan] 0.5 mg PO Q8HR PRN 11/28/22 01/13/24 Rosuvastatin Calcium 5 mg PO HS 11/28/22 01/13/24 lamoTRIgine [LaMICtal] 75 mg PO HS 11/28/22 01/13/24 Cyanocobalamin (Vitamin B-12) 1,000 mcg PO DAILY 01/26/23 01/13/24 [Vitamin B-12] Gabapentin 300 mg PO TID 05/29/23 01/13/24 Pantoprazole [Protonix] 40 mg PO DAILY 06/04/23 01/13/24 Sucralfate [Carafate] 1 gm PO TID-W/MEALS 06/04/23 01/13/24 traMADol HCL 50 mg PO Q6H PRN 09/14/23 01/13/24 Megestrol [Megace] 400 mg PO DIRECTED 12/01/23 01/13/24 Vitamin D3 (Unknown Strength) 1 dose PO DAILY 12/01/23 01/13/24 Magnesium Oxide [Mag-Ox] 400 mg PO DAILY 01/12/24 01/13/24 Previous Rx's Medication Instructions Recorded Loperamide [Imodium] 2 mg PO QID PRN 30 Days #120 cap 02/02/23 OLANZapine ODT [ZyPREXA Zydis] 2.5 mg PO HS 30 Days #30 tab 02/02/23 Ondansetron Odt [Zofran Odt] 4 mg PO Q8HR PRN #10 tab 09/14/23 Allergies Allergy/AdvReac Type Severity Reaction Status Date / Time No Known Allergies Allergy Verified 01/13/24 11:47 Review of Systems ROS Other: All systems not noted in ROS Statement are negative. <Macho Way - Last Filed: 06/30/24 16:33> ROS Other: All systems not noted in ROS Statement are negative. <Chucky Bonilla - Last Filed: 06/30/24 20:37> ROS Statement: Those systems with pertinent positive or pertinent negative responses have been documented in the HPI. Past Medical History Past Medical History: Asthma, Cancer, COPD, GERD/Reflux, Memory Impairment, Musculoskeletal Disorder, Osteoarthritis (OA), Sleep Apnea/CPAP/BIPAP Additional Past Medical History / Comment(s): PT STATES SOME MEMORY PROBLEMS AND LEARNING DISABILITY, HAS FRIEND WHO HELPS HER WITH MEDICATIONS AND APPTS., STATES MUSCLE SPASMS, BACK PROBLEMS WITH DISC DISEASE, ANEMIA, URINARY URGENCY, PROBLEMS WITH DIARRHEA & CONSTIPATION.Pancreatic CA diagnosed August 2022, started chemo on 11/03/22 History of Any Multi-Drug Resistant Organisms: None Reported Past Surgical History: Section, Cholecystectomy, Hysterectomy Additional Past Surgical History / Comment(s): 2 C-SECTIONS, PARTIAL HYSTERECTOMY, BERNADETTE REMOVED. States she had a stent after "yellow jaundice" due to a blockage, done Bruce Valentine, COLONOSCOPY, EGD Past Anesthesia/Blood Transfusion Reactions: Motion Sickness Additional Past Anesthesia/Blood Transfusion Reaction / Comment(s): STATES DIFFICULTY WAKING UP AFTER ANESTHESIA, has had two blood transfusion without incident Past Psychological History: Anxiety, Depression Smoking Status: Former smoker - Past Family History Mother Family Medical History: Cancer Additional Family Medical History / Comment(s): LUNG AND BRAIN CA <Macho Way - Last Filed: 06/30/24 16:33> General Exam Limitations: no limitations <Macho Way - Last Filed: 06/30/24 16:33> <Chucky Bonilla - Last Filed: 06/30/24 20:37> - General Exam Comments Initial Comments: Visual Physical Exam Vital signs reviewed General: Patient appears cachectic, nontoxic, no acute distress. Head: Normocephalic, atraumatic Eyes: PERRLA, EOMI ENT: Airway patent Chest: Nonlabored breathing Skin: No visual rash, normal skin tone Neuro: Alert and oriented 3 Musculoskeletal: No gross abnormalities (Macho Way) PHYSICAL EXAM: General Impression: Alert and oriented x3, not in acute distress HEENT: Normocephalic atraumatic, extra-ocular movements intact, pupils equal and reactive to light bilaterally, mucous membranes moist. Cardiovascular: Heart regular rate and rhythm Chest: Able to complete full sentences, no retractions, no tachypnea Abdomen: abdomen soft, diffuse palpatory abdominal pain, non-distended, no organomegaly Musculoskeletal: Pulses present and equal in all extremities, no peripheral edema Motor: no focal deficits noted Neurological: CN II-XII grossly intact, no focal motor or sensory deficits noted Skin: Intact with no visualized rashes Psych: Normal affect and mood (Chucky Bonilla) Course Vital Signs 06/30/24 06/30/24 16:01 19:37 Temperature 97.9 F Pulse Rate 91 72 Respiratory 16 18 Rate Blood Pressure 111/76 98/65 O2 Sat by Pulse 99 95 Oximetry Medical Decision Making <Macho Way - Last Filed: 06/30/24 16:33> - Lab Data Result diagrams: 06/30/24 18:00 06/30/24 18:00 <Chucky Bonilla - Last Filed: 06/30/24 20:37> - Medical Decision Making I completed the quick note portion of this chart signed NEELAM Song (Macho [address]) My EKG interpretation: Ventricular rate 90, sinus rhythm, MN interval 146, QRS 75, QTc 383. No MN prolongation, no QTC prolongation, no ST or T-wave changes noted. Overall, this EKG is unremarkable Was pt. sent in by a medical professional or institution (MAZIN Blancas, BALLISTICS TEACHER, urgent care, hospital, or usp...) When possible be specific @ -No Did you speak to anyone other than the patient for history (EMS, parent, family, police, friend...)? What history was obtained from this source @ -No Did you review nursing and triage notes (agree or disagree)? Why? @ -I reviewed and agree with nursing and triage notes Were old charts reviewed (outside hosp., previous admission, EMS record, old EKG, old radiological studies, urgent care reports/EKG's, usp records)? Report findings @ -No old charts were reviewed Differential Diagnosis (chest pain, altered mental status, abdominal pain women, abdominal pain men, vaginal bleeding, musculoskeletal, weakness, fever, dyspnea, syncope, headache, dizziness, GI bleed, back pain, seizure, CVA, palpatations, mental health)? @ -Differential Abdominal Pain Women: Appendicitis, Cholecystitis, diverticulosis, ischemic bowel, pancreatitis, hepatitis, UTI, gastroenteritis, AAA, incarcerated hernia, bowel obstruction, constipation, inflammatory bowel, hepatitis, peptic ulcer disease, splenic infarction, perforated viscus, vulvitis, ovarian torsion, PID, kidney stone, jorge centa abruption, this is not meant to be an all-inclusive list EKG interpreted by me (3pts min.). @ -None done X-rays interpreted by me (1pt min.). @ -None done CT interpreted by me (1pt min.). @ -CT ab pelvis shows no acute processes U/S interpreted by me (1pt. min.). @ -None done What testing was considered but not performed or refused? (CT, X-rays, U/S, labs)? Why? @ -None What meds were considered but not given or refused? Why? @ -None Was smoking cessation discussed for >3mins.? @ -No Were there social determinants of health that impacted care today? How? (Homelessness, low income, unemployed, alcoholism, drug addiction, transportation, low edu. Level, literacy, decrease access to med. care, [place] [facility], rehab)? @ -No Was there de-escalation of care discussed even if they declined (Discuss DNR or withdrawal of care, Hospice)? DNR status @ -No What co-morbidities impacted this encounter? (DM, HTN, Smoking, COPD, CAD, Cancer, CVA, ARF, Chemo, Hep., AIDS, mental health diagnosis, sleep apnea, morbid obesity)? @ -Extensive abdominal history Was patient admitted / discharged? Hospital course, mention meds given and route, prescriptions, significant lab abnormalities, going to OR and other pertinent info. @ -59-year-old well-appearing female presents emergency department poor appetite and vague abdominal pain. Vital signs stable. Patient has nonsurgical abdomen. Laboratory evaluation is unremarkable. Urinalysis is negative. CT shows no acute process. Patient observed emergency department for approximately 4 hours and 36 minutes. Patient is well-appearing no acute distress with benign abdominal exam. Patient agreeable for discharge advised follow-up with primary care doctor. Did you discuss the management of the patient with other professionals (professionals i.e. , PA, BALLISTICS TEACHER, lab, RT, psych nurse, clinical social work aide, fish stringer assembler, teacher, assignment officer, medical case manager)? Give summary @ -No Was critical care preformed (if so, how long)? @ -No Undiagnosed new problem with uncertain prognosis? @ -No Drug Therapy requiring intensive monitoring for toxicity (Heparin, Nitro, Insulin, Cardizem)? @ -No Were any procedures done? @ -No Diagnosis/symptom? Acute, or Chronic, or Acute on Chronic? Uncomplicated (without systemic symptoms) or Complicated (systemic symptoms)? @ -Abdominal pain Side effects of treatment? @ -No Exacerbation, Progression, or Severe Exacerbation? @ -No Poses a threat to life or bodily function? How? (Chest pain, USA, PR, pneumonia, PE, COPD, DKA, ARF, appy, cholecystitis, CVA, Diverticulitis, Homicidal, Suicidal, threat to staff... and all critical care pts) @ -No (Chucky Bonilla) - Lab Data Lab Results 06/30/24 06/30/24 06/30/24 Range/Units 18:00 18:00 18:00 WBC 5.77 (4.50-10.00) 10*3/uL RBC 4.15 (4.10-5.20) 10*6/uL Hgb 11.5 L (12.0-15.0) g/dL Hct 34.8 L (37.2-46.3) % MCV 83.9 (80.0-97.0) fL MCH 27.7 (27.0-32.0) pg MCHC 33.0 (32.0-37.0) g/dL Plt Count 236 (140-440) 10*3/uL MPV 9.3 L (9.5-12.2) fL Immature Gran % (Auto) 0.7 % Neutrophils % 71.9 % Lymphocytes % 17.2 % Monocytes % 8.5 % Eosinophils % 1.4 % Basophils % 0.3 % Immature Gran # 0.04 (0.00-0.04) 10*3/uL Neutrophils # 4.15 (1.80-7.70) 10*3/uL Lymphocytes # 0.99 (0.90-5.00) 10*3/uL Monocytes # 0.49 (0.20-1.00) 10*3/uL Eosinophils # 0.08 (0.04-0.35) 10*3/uL Basophils # 0.02 (0.00-0.10) 10*3/uL Sodium 135 L (137-145) mmol/L Potassium 4.6 (3.5-5.1) mmol/L Chloride 106 (98-107) mmol/L Carbon Dioxide 27 (22-30) mmol/L Anion Gap 2 mmol/L BUN 15 (7-17) mg/dL Creatinine 0.81 (0.52-1.04) mg/dL Est GFR (CKD-EPI)AfAm >90 (>60 ml/min/1.73 sqM) Est GFR (CKD-EPI)NonAf 79 (>60 ml/min/1.73 sqM) Glucose 80 (74-99) mg/dL Plasma Lactic Acid Mak 1.0 (0.7-2.0) mmol/L Calcium 8.1 L (8.4-10.2) mg/dL Total Bilirubin 1.1 (0.2-1.3) mg/dL AST 95 H (14-36) U/L ALT 57 H (4-34) U/L Alkaline Phosphatase 722 H (38-126) U/L Total Protein 5.0 L (6.3-8.2) g/dL Albumin 2.0 L (3.5-5.0) g/dL Lipase 20 L (23-300) U/L Urine Color Urine Appearance (Clear) Urine pH (5.0-8.0) Ur Specific [place] (1.001-1.035) Urine Protein (Negative) Urine Glucose (UA) (Negative) Urine Ketones (Negative) Urine Blood (Negative) Urine Nitrite (Negative) Urine Bilirubin (Negative) Urine Urobilinogen (<2.0) mg/dL Ur Leukocyte Esterase (Negative) 06/30/24 Range/Units 19:55 WBC (4.50-10.00) 10*3/uL RBC (4.10-5.20) 10*6/uL Hgb (12.0-15.0) g/dL Hct (37.2-46.3) % MCV (80.0-97.0) fL MCH (27.0-32.0) pg MCHC (32.0-37.0) g/dL Plt Count (140-440) 10*3/uL MPV (9.5-12.2) fL Immature Gran % (Auto) % Neutrophils % % Lymphocytes % % Monocytes % % Eosinophils % % Basophils % % Immature Gran # (0.00-0.04) 10*3/uL Neutrophils # (1.80-7.70) 10*3/uL Lymphocytes # (0.90-5.00) 10*3/uL Monocytes # (0.20-1.00) 10*3/uL Eosinophils # (0.04-0.35) 10*3/uL Basophils # (0.00-0.10) 10*3/uL Sodium (137-145) mmol/L Potassium (3.5-5.1) mmol/L Chloride (98-107) mmol/L Carbon Dioxide (22-30) mmol/L Anion Gap mmol/L BUN (7-17) mg/dL Creatinine (0.52-1.04) mg/dL Est GFR (CKD-EPI)AfAm (>60 ml/min/1.73 sqM) Est GFR (CKD-EPI)NonAf (>60 ml/min/1.73 sqM) Glucose (74-99) mg/dL Plasma Lactic Acid Mak (0.7-2.0) mmol/L Calcium (8.4-10.2) mg/dL Total Bilirubin (0.2-1.3) mg/dL AST (14-36) U/L ALT (4-34) U/L Alkaline Phosphatase (38-126) U/L Total Protein (6.3-8.2) g/dL Albumin (3.5-5.0) g/dL Lipase (23-300) U/L Urine Color Light Yellow Urine Appearance Clear (Clear) Urine pH 8.0 (5.0-8.0) Ur Specific [place] >1.050 H (1.001-1.035) Urine Protein Negative (Negative) Urine Glucose (UA) Negative (Negative) Urine Ketones Negative (Negative) Urine Blood Negative (Negative) Urine Nitrite Negative (Negative) Urine Bilirubin Negative (Negative) Urine Urobilinogen <2.0 (<2.0) mg/dL Ur Leukocyte Esterase Negative (Negative) Disposition <Macho Way - Last Filed: 06/30/24 16:33> Is patient prescribed a controlled substance at d/c from ED?: No Time of Disposition: 20:37 <Chucky Bonilla - Last Filed: 06/30/24 20:37> Clinical Impression: Abdominal pain Disposition: HOME SELF-CARE Condition: Fair Instructions (If sedation given, give patient instructions): Abdominal Pain (ED) Referrals: Michael Leal MD [Primary Care Provider] - 1-2 days
[2024-06-30] MEDS: SODIUM CHLORIDE 0.9% 1,000 ML IV STA (18:03)
[2024-06-30 18:06] LABS: Basophils # (A) 0.02 10*3/uL (0.00-0.10); Basophils % (A) 0.3 %; Eosinophils # (A) 0.08 10*3/uL (0.04-0.35); Eosinophils % (A) 1.4 %; HCT 34.8 % (37.2-46.3); HGB 11.5 g/dL (12.0-15.0); Lymphocytes # (A) 0.99 10*3/uL (0.90-5.00); Lymphocytes % (A) 17.2 %; MCH 27.7 pg (27.0-32.0); MCV 83.9 fL (80.0-97.0); Mean Platelet Volume 9.3 fL (9.5-12.2); Monocytes # (A) 0.49 10*3/uL (0.20-1.00); Monocytes % (A) 8.5 %; Neutrophils # (A) 4.15 10*3/uL (1.80-7.70); Neutrophils % (A) 71.9 %; Platelet Count 236 10*3/uL (140-440); RBC 4.15 10*6/uL (4.10-5.20); RDW 15.9 % (11.5-14.5); WBC 5.77 10*3/uL (4.50-10.00)
[2024-06-30 18:23] LABS: ALT 57 U/L (4-34); AST 95 U/L (14-36); African American GFR (CKD) >90 (>60 ml/min/1.73 sqM); Alkaline Phosphatase 722 U/L (38-126); Anion Gap 2 mmol/L; Blood Urea Nitrogen 15 mg/dL (7-17); Calcium 8.1 mg/dL (8.4-10.2); Carbon Dioxide 27 mmol/L (22-30); Chloride 106 mmol/L (98-107); Glucose 80 mg/dL (74-99); Lipase 20 U/L (23-300); Non-African American GFR(CKD) 79 (>60 ml/min/1.73 sqM); Potassium 4.6 mmol/L (3.5-5.1); Sodium 135 mmol/L (137-145); Total Bilirubin 1.1 mg/dL (0.2-1.3)
[2024-06-30] MEDS: METOCLOPRAMIDE 5 MG/ML 2 ML VIAL IVP STA (19:33)
--- NOTE | 2024-06-30 19:36 | CT ---
EXAMINATION TYPE: CT abdomen pelvis w con DATE OF EXAM: 06/30/2024 7:06 PM COMPARISON: None. CLINICAL INDICATION: Female, 59 years old with history of abdominal pain, generalized abdominal pain, pancreatic cancer TECHNIQUE: Axial images were obtained from above the diaphragm to the pubic rami in the axial plane a t 5 mm thick sections. Reconstructed images are reviewed on the computer in the coronal plane. CONTRAST: 100ml mL of Isovue 370. Study performed without Oral Contrast DLP: 531.4 mGycm, Automated exposure control for dose reduction was used. FINDINGS: Limited CT sections are obtained the lung bases. The lung bases are clear. There is a moderate size hiatal hernia present. CT ABDOMEN: Ascites the abdomen. Antrum of the stomach and duodenal stent is present. Liver: Extensive fatty infiltration is the liver. Ascites is adjacent. Spleen: Normal Pancreas: Severely Atrophic. Lesions pancreatic cancer is not identified. Adrenal glands: The adrenal glands are normal. Gallbladder: Biliary stent to the common bile duct and duodenum is present. Gall bladder is absent Kidneys: No masses are evident. No hydronephrosis is present. No cysts are present. Aorta: Vascular calcification is within the aorta. Inferior vena cava: Normal. CT PELVIS: Ascites is within the abdomen and pelvis. Loops of bowel within the abdomen and pelvis are normal. Fluid-filled small bowel loops are prese nt. These appear nondilated. No obstruction is evident. Consider some ileus. Appendix: Normal as visualized Urinary bladder: Normal. Genitourinary structures: Osseous structures: No suspicious lytic or sclerotic lesions. IMPRESSION: 1. Antrum and duodenal stenting with additional common bile duct stent to the duodenum. 2. Severely atrophic pancreas. Patient's known pancreatic cancer poorly identified. 3. Interval development of ascites. 4. Interval development of severe fatty infiltration diminished density of the liver. 5. Moderate size hiatal hernia [facility], Workstation: [facility], 06/30/2024 7:34 PM
[2024-06-30 19:38] VITALS: RESP 18
[2024-06-30 20:23] LABS: Appearance,Urine Clear (Clear); Bilirubin,Urine Negative (Negative); Blood,Urine Negative (Negative); Color,Urine Light Yellow; Glucose,Urine (UA) Negative (Negative); Ketones,Urine Negative (Negative); Leukocyte Esterase,Urine Negative (Negative); Nitrite,Urine Negative (Negative); Protein,Urine Negative (Negative); Urobilinogen,Urine <2.0 mg/dL (<2.0)
[2024-06-30 20:25] LABS: Specific Gravity,Urine >1.050 (1.001-1.035)
[2024-06-30 21:01] VITALS: BP 92/55; PULSE 82
== END 2024-06-30 21:35 | disposition home or self-care (01) ==
LOC: EC 15:59
DX: R10.84 Generalized abdominal pain (principal); Z87.891 Personal history of nicotine dependence
CPT/HCPCS: 36415; 93005; 80053; 83605; 83690; 85025; 81003; 74177; 99284; 96374; 96361; J2765; Q9967

== ENCOUNTER 2024-08-08 13:17 | Inpatient (IN) | payer MEDICARE, OTHER ==
--- NOTE | 2024-08-08 14:16 | ED ---
General Adult HPI - General Source: patient, RN notes reviewed, old records reviewed Mode of arrival: ambulatory Limitations: no limitations - History of Present Illness -: week(s) Consistency: constant Improves with: none Worsens with: cold therapy Associated Symptoms: loss of appetite, malaise, weakness Treatments Prior to Arrival: none <Otoniel Arroyo - Last Filed: 08/08/24 17:31> - General Source: patient, RN notes reviewed, old records reviewed Mode of arrival: ambulatory Limitations: no limitations <Otoniel Nichols - Last Filed: 08/11/24 14:31> - General Chief complaint: Weakness Stated complaint: Leg swelling, back pain Time Seen by Provider: 08/08/24 13:30 - History of Present Illness Initial comments: This is a 59 female to ER for evaluation of weakness weakness fatigue swollen legs, decreased appetite. (Otoniel Arroyo) This is a 59-year-old female with a past medical history significant for an operable pancreatic cancer. Patient also states she has kidney disease. Patient comes in today because her legs are swollen she cannot walk on because are so swollen. Patient also complains of generalized weakness and some shortness of breath. Patient denies any fever chills or cough. Patient denies chest pain patient denies any abdominal pain patient has nausea vomiting. (Otoniel Nichols) - Related Data Home Medications Medication Instructions Recorded Confirmed DULoxetine HCL [Cymbalta] 60 mg PO DAILY 11/03/22 08/08/24 Ferrous Sulfate [Iron] 325 mg PO BID-W/MEALS 11/03/22 08/08/24 Midodrine HCl 5 mg PO TID PRN 11/03/22 08/08/24 Potassium Chloride ER [K-Dur 20] 20 meq PO DAILY 11/03/22 08/08/24 Famotidine [Pepcid] 40 mg PO DAILY 11/28/22 08/08/24 lamoTRIgine [LaMICtal] 75 mg PO HS 11/28/22 08/08/24 Gabapentin 300 mg PO TID 05/29/23 08/08/24 Pantoprazole [Protonix] 40 mg PO BID 06/04/23 08/08/24 traMADol HCL 50 mg PO Q6H PRN 09/14/23 08/08/24 Levothyroxine Sodium [Synthroid] 25 mcg PO DAILY 08/08/24 08/08/24 Loperamide [Imodium] 4 mg PO QID PRN 08/08/24 08/08/24 OLANZapine [ZyPREXA] 2.5 mg PO HS 08/08/24 08/08/24 Ondansetron Odt [Zofran Odt] 4 mg PO BID PRN 08/08/24 08/08/24 Simethicone [Mylanta Gas Minis] 125 mg PO BID 08/08/24 08/08/24 Vitamin D3(Unknown Dose) 1 tab PO DAILY 08/08/24 Allergies Allergy/AdvReac Type Severity Reaction Status Date / Time No Known Allergies Allergy Verified 08/08/24 17:09 Review of Systems ROS Other: All systems not noted in ROS Statement are negative. <Otoniel Arroyo - Last Filed: 08/08/24 17:31> ROS Other: All systems not noted in ROS Statement are negative. <Otoniel Nichols - Last Filed: 08/11/24 14:31> ROS Statement: Those systems with pertinent positive or pertinent negative responses have been documented in the HPI. Past Medical History Past Medical History: Asthma, Cancer, COPD, GERD/Reflux, Memory Impairment, Musc uloskeletal Disorder, Osteoarthritis (OA), Sleep Apnea/CPAP/BIPAP Additional Past Medical History / Comment(s): PT STATES SOME MEMORY PROBLEMS AND LEARNING DISABILITY, HAS FRIEND WHO HELPS HER WITH MEDICATIONS AND APPTS., STATES MUSCLE SPASMS, BACK PROBLEMS WITH DISC DISEASE, ANEMIA, URINARY URGENCY, PROBLEMS WITH DIARRHEA & CONSTIPATION.Pancreatic CA diagnosed August 2022, started chemo on 11/03/22 History of Any Multi-Drug Resistant Organisms: None Reported Past Surgical History: Section, Cholecystectomy, Hysterectomy Additional Past Surgical History / Comment(s): 2 C-SECTIONS, PARTIAL HYSTERECTOMY, BERNADETTE REMOVED. States she had a stent after "yellow jaundice" due to a blockage, done Bruce Valentine, COLONOSCOPY, EGD Past Anesthesia/Blood Transfusion Reactions: Motion Sickness Additional Past Anesthesia/Blood Transfusion Reaction / Comment(s): STATES DIFFICULTY WAKING UP AFTER ANESTHESIA, has had two blood transfusion without incident Past Psychological History: Anxiety, Depression Smoking Status: Former smoker Past Alcohol Use History: None Reported Past Drug Use History: None Reported - Past Family History Mother Family Medical History: Cancer Additional Family Medical History / Comment(s): LUNG AND BRAIN CA <Otoniel Nichols - Last Filed: 08/11/24 14:31> General Exam General appearance: alert, in no apparent distress Head exam: Present: atraumatic, normocephalic, normal inspection Eye exam: Present: normal appearance, PERRL, EOMI. Absent: scleral icterus, conjunctival injection, periorbital swelling ENT exam: Present: normal exam, mucous membranes moist Neck exam: Present: normal inspection. Absent: tenderness, meningismus, lymphadenopathy Respiratory exam: Present: normal lung sounds bilaterally. Absent: respiratory distress, wheezes, rales, rhonchi, stridor Cardiovascular Exam: Present: regular rate, normal rhythm, normal heart sounds. Absent: systolic murmur, diastolic murmur, rubs, gallop, clicks GI/Abdominal exam: Present: soft, normal bowel sounds. Absent: distended, tenderness, guarding, rebound, rigid Extremities exam: Present: normal inspection, full ROM, normal capillary refill. Absent: tenderness, pedal edema, joint swelling, calf tenderness Back exam: Present: normal inspection Neurological exam: Present: alert, oriented X3, CN II-XII intact Psychiatric exam: Present: normal affect, normal mood Skin exam: Present: warm, dry, intact, normal color. Absent: rash <Otoniel Arroyo - Last Filed: 08/08/24 17:31> Limitations: no limitations <Otoniel Nichols - Last Filed: 08/11/24 14:31> - General Exam Comments Initial Comments: GENERAL: Patient is well-developed and well-nourished. Patient is nontoxic and well-hydrated and is in mild distress. ENT: Neck is soft and supple. No significant lymphadenopathy is noted. Oropharynx is clear. Moist mucous membranes. Neck has full range of motion without eliciting any pain. EYES: The sclera were anicteric and conjunctiva were pink and moist. Extraocular movements were intact and pupils were equal round and reactive to light. Eyelids were unremarkable. PULMONARY: Unlabored respirations. Good breath sounds bilaterally. Diminished breath sounds on the on the right CARDIOVASCULAR: There is a regular rate and rhythm without any murmurs gallops or rubs. ABDOMEN: Soft and nontender with normal bowel sounds. SKIN: Skin is clear with no lesions or rashes and otherwise unremarkable. NEUROLOGIC: Patient is alert and oriented x3. Cranial nerves II through XII are grossly intact. Motor and sensory are also intact. Normal speech, volume and content. Symmetrical smile. MUSCULOSKELETAL: Normal extremities with adequate strength and full range of motion. 2+ edema bilaterally LYMPHATICS: No significant lymphadenopathy is noted PSYCHIATRIC: Normal psychiatric evaluation. (Otoniel Nichols) Course <Otoniel Arroyo - Last Filed: 08/08/24 17:31> Vital Signs 08/08/24 08/08/24 08/08/24 13:28 16:02 18:26 Temperature 97.5 F L Pulse Rate 140 H 78 92 Respiratory 20 14 16 Rate Blood Pressure 104/77 106/94 117/84 O2 Sat by Pulse 99 97 97 Oximetry 08/08/24 08/09/24 08/09/24 20:20 04:00 06:11 Temperature 97.8 F 97.7 F 98.2 F Pulse Rate 80 77 76 Respiratory 16 12 14 Rate Blood Pressure 104/75 96/68 94/66 O2 Sat by Pulse 98 95 96 Oximetry - Reevaluation(s) Reevaluation #1: 08/08/24 17:33 Medical records reviewed (Otoniel Arroyo) Reevaluation #2: 08/08/24 17:33 Symptoms unchanged here in the ER (Otoniel Arroyo) Reevaluation #3: 08/08/24 17:33 Patient informed of results questions answered does not feel comfortable discharge (Otoniel Arroyo) - Consultations Consultation #1: Spoke with Dr. Leal who agrees to admit this patient (Otoniel Arroyo) Medical Decision Making - Lab Data Result diagrams: 08/08/24 14:41 08/08/24 14:41 - Radiology Data Radiology results: report reviewed (CXR is positive pleural effusion, US negative for DVT BL), image reviewed <Otoniel Arroyo - Last Filed: 08/08/24 17:31> - Lab Data Result diagrams: 08/11/24 06:00 08/11/24 06:00 <Otoniel Nichols - Last Filed: 08/11/24 14:31> - Medical Decision Making 59 female to ER for evaluation of weakness dehydration lower extremity edema patient does have pleural effusion on x-ray low electrolytes were replaced and patient will be placed in observation (Otoniel Arroyo) EKG is interpreted by myself. EKG shows sinus rhythm at 88 bpm [place] 150 QRS of 77 QT interval 347 QTc is 392. Patient's EKG shows no ST segment elevation or depression. Was pt. sent in by a medical professional or institution (, MAZIN, TELEPHONE OPERATOR RECEPTIONIST, urgent care, hospital, or jail...) When possible be specific @ -No Did you speak to anyone other than the patient for history (EMS, parent, family, police, friend...)? What history was obtained from this source @ -No Did you review nursing and triage notes (agree or disagree)? Why? @ -I reviewed and agree with nursing and triage notes Were old charts reviewed (outside hosp., previous admission, EMS record, old EKG, old radiological studies, urgent care reports/EKG's, jail records)? Report findings @ -No old charts were reviewed Differential Diagnosis? @ -Differential Weakness: Hypoglycemia, shock, sepsis, hyponatremia, anemia, infection, VA, ETOH, adverse medicine reaction, overdose, stroke, this is not meant to be an all-inclusive list. EKG interpreted by me (3pts min.). @ -As above X-rays interpreted by me (1pt min.). @ -Chest x-ray shows a new left-sided pleural effusion CT interpreted by me (1pt min.). @ -None done U/S interpreted by me (1pt. min.). @ -None done What testing was considered but not performed or refused? (CT, X-rays, U/S, labs)? Why? @ -None What meds were considered but not given or refused? Why? @ -None Did you discuss the management of the patient with other professionals (professionals i.e. MAZIN Blancas, TELEPHONE OPERATOR RECEPTIONIST, lab, RT, psych nurse, clinical social work aide, procurement clerk, teacher, chief marketing officer, case managers)? Give summary @ -No Was smoking cessation discussed for >3mins.? @ -No Was critical care preformed (if so, how long)? @ -No Were there social determinants of health that impacted care today? How? (Homelessness, low income, unemployed, alcoholism, drug addiction, transpo rtation, low edu. Level, literacy, decrease access to med. care, shelter, rehab)? @ -No Was there de-escalation of care discussed even if they declined (Discuss DNR or withdrawal of care, Hospice)? DNR status @ -No What co-morbidities impacted this encounter? (DM, HTN, Smoking, COPD, CAD, Cancer, CVA, ARF, Chemo, Hep., AIDS, mental health diagnosis, sleep apnea, morbid obesity)? @ -None Was patient admitted / discharged? Hospital course, mention meds given and route, prescriptions, significant lab abnormalities, going to OR and other pertinent info. @ -Labs got lost up in laboratory and they are being run currently and Dr. Arroyo will take over the care of this patient at 4 PM (Otoniel Nichols) - Lab Data Lab Results 08/08/24 08/08/24 08/08/24 Range/Units 14:41 14:41 14:41 WBC 5.90 (4.50-10.00) 10*3/uL RBC 4.01 L (4.10-5.20) 10*6/uL Hgb 11.3 L (12.0-15.0) g/dL Hct 33.8 L (37.2-46.3) % MCV 84.3 (80.0-97.0) fL MCH 28.2 (27.0-32.0) pg MCHC 33.4 (32.0-37.0) g/dL Plt Count 273 (140-440) 10*3/uL MPV 10.2 (9.5-12.2) fL Immature Gran % (Auto) 0.7 % Neutrophils % 81.4 % Lymphocytes % 8.6 % Monocytes % 7.6 % Eosinophils % 1.0 % Basophils % 0.7 % Immature Gran # 0.04 (0.00-0.04) 10*3/uL Neutrophils # 4.80 (1.80-7.70) 10*3/uL Lymphocytes # 0.51 L (0.90-5.00) 10*3/uL Monocytes # 0.45 (0.20-1.00) 10*3/uL Eosinophils # 0.06 (0.04-0.35) 10*3/uL Basophils # 0.04 (0.00-0.10) 10*3/uL PT 13.3 H (10.0-12.5) sec INR 1.2 H (<1.2) APTT 22.8 (22.0-30.0) sec D-Dimer 0.98 H (<0.60) mg/L FEU Sodium 136 L (137-145) mmol/L Potassium 3.2 L (3.5-5.1) mmol/L Chloride 107 (98-107) mmol/L Carbon Dioxide 24 (22-30) mmol/L Anion Gap 5 mmol/L BUN 15 (7-17) mg/dL Creatinine 0.78 (0.52-1.04) mg/dL Est GFR (CKD-EPI)AfAm >90 (>60 ml/min/1.73 sqM) Est GFR (CKD-EPI)NonAf 83 (>60 ml/min/1.73 sqM) Glucose 113 H (74-99) mg/dL Plasma Lactic Acid Mak (0.7-2.0) mmol/L Calcium 7.5 L (8.4-10.2) mg/dL Magnesium 1.7 (1.6-2.3) mg/dL Total Bilirubin 1.8 H (0.2-1.3) mg/dL AST 67 H (14-36) U/L ALT 45 H (4-34) U/L Alkaline Phosphatase 412 H (38-126) U/L Troponin I (0.000-0.034) ng/mL NT-Pro-B Natriuret Pep 703 pg/mL Total Protein 5.2 L (6.3-8.2) g/dL Albumin 1.9 L (3.5-5.0) g/dL Lipase (23-300) U/L 08/08/24 08/08/24 08/08/24 Range/Units 14:41 14:41 14:41 WBC (4.50-10.00) 10*3/uL RBC (4.10-5.20) 10*6/uL Hgb (12.0-15.0) g/dL Hct (37.2-46.3) % MCV (80.0-97.0) fL MCH (27.0-32.0) pg MCHC (32.0-37.0) g/dL Plt Count (140-440) 10*3/uL MPV (9.5-12.2) fL Immature Gran % (Auto) % Neutrophils % % Lymphocytes % % Monocytes % % Eosinophils % % Basophils % % Immature Gran # (0.00-0.04) 10*3/uL Neutrophils # (1.80-7.70) 10*3/uL Lymphocytes # (0.90-5.00) 10*3/uL Monocytes # (0.20-1.00) 10*3/uL Eosinophils # (0.04-0.35) 10*3/uL Basophils # (0.00-0.10) 10*3/uL PT (10.0-12.5) sec INR (<1.2) APTT (22.0-30.0) sec D-Dimer (<0.60) mg/L FEU Sodium (137-145) mmol/L Potassium (3.5-5.1) mmol/L Chloride (98-107) mmol/L Carbon Dioxide (22-30) mmol/L Anion Gap mmol/L BUN (7-17) mg/dL Creatinine (0.52-1.04) mg/dL Est GFR (CKD-EPI)AfAm (>60 ml/min/1.73 sqM) Est GFR (CKD-EPI)NonAf (>60 ml/min/1.73 sqM) Glucose (74-99) mg/dL Plasma Lactic Acid Mak 1.4 (0.7-2.0) mmol/L Calcium (8.4-10.2) mg/dL Magnesium (1.6-2.3) mg/dL Total Bilirubin (0.2-1.3) mg/dL AST (14-36) U/L ALT (4-34) U/L Alkaline Phosphatase (38-126) U/L Troponin I <0.012 (0.000-0.034) ng/mL NT-Pro-B Natriuret Pep pg/mL Total Protein (6.3-8.2) g/dL Albumin (3.5-5.0) g/dL Lipase 15 L (23-300) U/L Disposition Is patient prescribed a controlled substance at d/c from ED?: No Time of Disposition: 17:30 <Otoniel Arroyo - Last Filed: 08/08/24 17:31> <Otoniel Nichols - Last Filed: 08/11/24 14:31> Clinical Impression: Pleural effusion, Bilateral leg edema, Hypokalemia, Hypomagnesemia, Nausea and vomiting, Dehydration Disposition: ADMITTED IP TO THIS HOSP Condition: Fair
--- NOTE | 2024-08-08 15:18 | XR ---
EXAMINATION TYPE: XR chest 2V DATE OF EXAM: 08/08/2024 3:05 PM COMPARISON: Chest radiographs from 12/11/2023 CLINICAL INDICATION: Female, 59 years old with history of difficulty breathing; [facility] TECHNIQUE: XR chest 2V Frontal and lateral views of the chest. FINDINGS: Lungs/Pleura: Blunting of the left costophrenic angle. There is no evidence of right pleural effusio n, focal consolidation, or pneumothorax Pulmonary vascularity: Unremarkable. Heart/mediastinum: Cardiomediastinal silhouette is unremarkable. Musculoskeletal: No acute osseous pathology. Other findings: None Lines/Tubes: [id number] projecting over the left hemithorax with distal tip at the cavoatrial junction. IMPRESSION: New small left pleural effusion. [facility], Workstation: [facility], 08/08/2024 3:16 PM
[2024-08-08 15:52] LABS: Basophils # (A) 0.04 10*3/uL (0.00-0.10); Basophils % (A) 0.7 %; Eosinophils # (A) 0.06 10*3/uL (0.04-0.35); HCT 33.8 % (37.2-46.3); HGB 11.3 g/dL (12.0-15.0); Lymphocytes # (A) 0.51 10*3/uL (0.90-5.00); Lymphocytes % (A) 8.6 %; MCH 28.2 pg (27.0-32.0); MCHC 33.4 g/dL (32.0-37.0); MCV 84.3 fL (80.0-97.0); Mean Platelet Volume 10.2 fL (9.5-12.2); Monocytes # (A) 0.45 10*3/uL (0.20-1.00); Monocytes % (A) 7.6 %; Neutrophils % (A) 81.4 %; Platelet Count 273 10*3/uL (140-440); RBC 4.01 10*6/uL (4.10-5.20)
[2024-08-08] MEDS: SODIUM CHLORIDE 0.9% 500 ML 500 ML IV ONE (15:57)
[2024-08-08 16:06] LABS: ALT 45 U/L (4-34); AST 67 U/L (14-36); African American GFR (CKD) >90 (>60 ml/min/1.73 sqM); Albumin 1.9 g/dL (3.5-5.0); Alkaline Phosphatase 412 U/L (38-126); Anion Gap 5 mmol/L; Blood Urea Nitrogen 15 mg/dL (7-17); Calcium 7.5 mg/dL (8.4-10.2); Carbon Dioxide 24 mmol/L (22-30); Chloride 107 mmol/L (98-107); Glucose 113 mg/dL (74-99); Magnesium 1.7 mg/dL (1.6-2.3); Non-African American GFR(CKD) 83 (>60 ml/min/1.73 sqM); Potassium 3.2 mmol/L (3.5-5.1); Sodium 136 mmol/L (137-145); Total Bilirubin 1.8 mg/dL (0.2-1.3); Total Protein 5.2 g/dL (6.3-8.2)
[2024-08-08 16:13] LABS: NT-Pro-B-Type Natriuretic Pept 703 pg/mL
[2024-08-08] MEDS: SODIUM CHLORIDE 0.9% 500 ML IV STA (16:13)
[2024-08-08 16:15] LABS: INR 1.2 (<1.2); Partial Thromboplastin Time 22.8 sec (22.0-30.0); Prothrombin Time 13.3 sec (10.0-12.5)
--- NOTE | 2024-08-08 17:28 | US ---
EXAMINATION TYPE: US venous doppler duplex LE BI DATE OF EXAM: 08/08/2024 4:31 PM COMPARISON: NONE CLINICAL INDICATION: Female, 59 years old with history of dvt; Bilateral leg swelling. No redness. , Pain TECHNIQUE: The lower extremity deep venous system is examined utilizing real time linear array sonog weston with graded compression, color doppler sonography, and spectral doppler. SIDE PERFORMED: Bilateral FINDINGS: VESSELS IMAGED: Common Femoral Vein Deep Femoral Vein Greater Saphenous Vein * Femoral Vein Popliteal Vein Small Saphenous Vein * Proximal Calf Veins (* superficial vessels) Right Leg: Negative for DVT, Color Doppler imaging shows patency of the vessels. Spectral waveforms are within normal limits. Left Leg: Negative for DVT, Color Doppler imaging shows patency of the vessels. Spectral waveforms a re within normal limits. IMPRESSION: No ultrasound evidence for deep venous thrombosis. [facility], , 08/08/2024 5:25 PM
[2024-08-08] MEDS ORDERED: HYDROmorphone 1 MG/ML 1 ML SYRINGE IVP PRN (17:30)
[2024-08-08] MEDS ORDERED: NALOXONE 0.4 MG/ML 1 ML VIAL IV PRN (17:30)
[2024-08-08] MEDS: PANTOPRAZOLE 40 MG/10 ML VIAL IV SCH (18:13)
[2024-08-08] MEDS: POTASSIUM BICARBONATE/CIT AC 20 MEQ TABLET.EFF PO ONE ×2 (18:15→18:16)
[2024-08-08] MEDS: DEXTROSE 5%-0.45% NACL 1,000 ML IV SCH (18:19)
[2024-08-08] MEDS: MAGNESIUM OXIDE 400 MG TAB PO STA ×2 (18:20)
[2024-08-08 19:10] LABS: Influenza A Not Detected (Not Detectd); Influenza B Not Detected (Not Detectd); RSV Not Detected (Not Detectd)
[2024-08-09 07:12] LABS: Basophils # (A) 0.04 10*3/uL (0.00-0.10); Basophils % (A) 0.7 %; Eosinophils # (A) 0.14 10*3/uL (0.04-0.35); Eosinophils % (A) 2.4 %; HCT 32.8 % (37.2-46.3); HGB 10.9 g/dL (12.0-15.0); Lymphocytes # (A) 0.83 10*3/uL (0.90-5.00); Lymphocytes % (A) 14.4 %; MCH 28.5 pg (27.0-32.0); MCHC 33.2 g/dL (32.0-37.0); MCV 85.6 fL (80.0-97.0); Mean Platelet Volume 9.7 fL (9.5-12.2); Monocytes # (A) 0.54 10*3/uL (0.20-1.00); Monocytes % (A) 9.3 %; Neutrophils # (A) 4.19 10*3/uL (1.80-7.70); Neutrophils % (A) 72.5 %; Platelet Count 204 10*3/uL (140-440); RBC 3.83 10*6/uL (4.10-5.20); RDW 18.3 % (11.5-14.5); WBC 5.78 10*3/uL (4.50-10.00)
[2024-08-09 07:13] LABS: ALT 42 U/L (4-34); AST 56 U/L (14-36); African American GFR (CKD) >90 (>60 ml/min/1.73 sqM); Albumin 1.7 g/dL (3.5-5.0); Albumin/Globulin Ratio 0.5; Alkaline Phosphatase 377 U/L (38-126); Anion Gap 3 mmol/L; Blood Urea Nitrogen 15 mg/dL (7-17); Calcium 7.3 mg/dL (8.4-10.2); Carbon Dioxide 26 mmol/L (22-30); Chloride 108 mmol/L (98-107); Globulin 3.1 g/dL; Glucose 76 mg/dL (74-99); Magnesium 1.8 mg/dL (1.6-2.3); Non-African American GFR(CKD) 86 (>60 ml/min/1.73 sqM); Phosphorus 3.3 mg/dL (2.5-4.5); Potassium 3.3 mmol/L (3.5-5.1); Sodium 137 mmol/L (137-145); Total Bilirubin 1.5 mg/dL (0.2-1.3); Total Protein 4.8 g/dL (6.3-8.2)
[2024-08-09] MEDS ORDERED: MIDODRINE 5 MG TAB PO PRN (08:50)
[2024-08-09] MEDS ORDERED: LOPERAMIDE 2 MG CAP PO PRN (08:50)
--- NOTE | 2024-08-09 10:02 | P.HPIM ---
History of Present Illness H&P Date: 08/09/24 Luz Marina Malolry is a 59-year-old female patient who presented to the ER with concerns of increased lower extremity swollen and weakness. Patient has a past medical history of pancreatic cancer. Additional medical history includes asthma, cancer, COPD, GERD, memory impairment, osteoarthritis anxiety and depression. Chest x-ray completed in ER showing new small left pleural effusion. Venous Doppler completed showing negative for DVT. Current vital signs temp 97.8, heart rate 80, respiratory rate 16, blood pressure 1 104/75 with pulse ox 98% on room air. Lab work completed showing influenza RSV and COVID-19 negative. Troponin negative. BNP of 703 alkaline phosphatase 377, ALT 42, AST 56 and total bili 1.5 potassium low at 3.3 will replace per protocol, hemoglobin 10.9 and white blood cells 5.70. At this time patient will be admitted oncology services consulted repeat chest x-ray ordered. Review of Systems Please refer to HPI otherwise unremarkable Past Medical History Past Medical History: Asthma, Cancer, COPD, GERD/Reflux, Memory Impairment, Musculoskeletal Disorder, Osteoarthritis (OA), Sleep Apnea/CPAP/BIPAP Additional Past Medical History / Comment(s): PT STATES SOME MEMORY PROBLEMS AND LEARNING DISABILITY, HAS FRIEND WHO HELPS HER WITH MEDICATIONS AND APPTS., STATES MUSCLE SPASMS, BACK PROBLEMS WITH DISC DISEASE, ANEMIA, URINARY URGENCY, PROBLEMS WITH DIARRHEA & CONSTIPATION.Pancreatic CA diagnosed August 2022, started chemo on 11/03/22 History of Any Multi-Drug Resistant Organisms: None Reported Past Surgical History: Section, Cholecystectomy, Hysterectomy Additional Past Surgical History / Comment(s): 2 C-SECTIONS, PARTIAL HYSTERECTOMY, BERNADETTE REMOVED. States she had a stent after "yellow jaundice" due to a blockage, done Bruce Valentine, COLONOSCOPY, EGD Past Anesthesia/Blood Transfusion Reactions: Motion Sickness Additional Past Anesthesia/Blood Transfusion Reaction / Comment(s): STATES DIFFICULTY WAKING UP AFTER ANESTHESIA, has had two blood transfusion without incident Past Psychological History: Anxiety, Depression Smoking Status: Former smoker Past Alcohol Use History: None Reported Past Drug Use History: None Reported - Past Family History Mother Family Medical History: Cancer Additional Family Medical History / Comment(s): LUNG AND BRAIN CA Medications and Allergies Home Medications Medication Instructions Recorded Confirmed Type DULoxetine HCL [Cymbalta] 60 mg PO DAILY 11/03/22 08/08/24 History Ferrous Sulfate [Iron] 325 mg PO BID-W/MEALS 11/03/22 08/08/24 History Midodrine HCl 5 mg PO TID PRN 11/03/22 08/08/24 History Potassium Chloride ER [K-Dur 20] 20 meq PO DAILY 11/03/22 08/08/24 History Famotidine [Pepcid] 40 mg PO DAILY 11/28/22 08/08/24 History lamoTRIgine [LaMICtal] 75 mg PO HS 11/28/22 08/08/24 History Gabapentin 300 mg PO TID 05/29/23 08/08/24 History Pantoprazole [Protonix] 40 mg PO BID 06/04/23 08/08/24 History traMADol HCL 50 mg PO Q6H PRN 09/14/23 08/08/24 History Levothyroxine Sodium [Synthroid] 25 mcg PO DAILY 08/08/24 08/08/24 History Loperamide [Imodium] 4 mg PO QID PRN 08/08/24 08/08/24 History OLANZapine [ZyPREXA] 2.5 mg PO HS 08/08/24 08/08/24 History Ondansetron Odt [Zofran Odt] 4 mg PO BID PRN 08/08/24 08/08/24 History Simethicone [Mylanta Gas Minis] 125 mg PO BID 08/08/24 08/08/24 History Vitamin D3(Unknown Dose) 1 tab PO DAILY 08/08/24 History Allergies Allergy/AdvReac Type Severity Reaction Status Date / Time No Known Allergies Allergy Verified 08/08/24 17:09 Physical Exam Vitals: Vital Signs Temp Pulse Pulse Resp BP BP Pulse Ox 08/09/24 08:05 97.9 F 89 14 116/81 94 L 08/09/24 06:11 98.2 F 76 14 94/66 96 08/09/24 04:00 97.7 F 77 12 96/68 95 08/08/24 20:20 97.8 F 80 16 104/75 98 08/08/24 18:26 92 16 117/84 97 08/08/24 16:02 78 14 106/94 97 08/08/24 13:28 97.5 F L 140 H 20 104/77 99 Intake and Output 08/08/24 08/09/2408/09/25 22:59 06:59 14:59 Other: # Bowel Movements 1 Head normocephalic Neck supple Lungs clear to auscultation bilaterally no wheezing or crackles Heart regular rate and rhythm S1-S2, no rub or gallop Abdomen is soft nontender nondistended positive bowel sounds no hep atosplenomegaly Extremities no edema Neuro alert and orientated to 3 Results CBC & Chem 7: 08/09/24 06:11 08/09/24 06:11 Labs: Abnormal Lab Results - Last 24 Hours (Table) 08/08/24 08/08/24 08/08/24 Range/Units 14:41 14:41 14:41 RBC 4.01 L (4.10-5.20) 10*6/uL Hgb 11.3 L (12.0-15.0) g/dL Hct 33.8 L (37.2-46.3) % RDW (11.5-14.5) % Lymphocytes # 0.51 L (0.90-5.00) 10*3/uL PT 13.3 H (10.0-12.5) sec INR 1.2 H (<1.2) D-Dimer 0.98 H (<0.60) mg/L FEU Sodium 136 L (137-145) mmol/L Potassium 3.2 L (3.5-5.1) mmol/L Chloride (98-107) mmol/L Glucose 113 H (74-99) mg/dL Calcium 7.5 L (8.4-10.2) mg/dL Total Bilirubin 1.8 H (0.2-1.3) mg/dL AST 67 H (14-36) U/L ALT 45 H (4-34) U/L Alkaline Phosphatase 412 H (38-126) U/L Total Protein 5.2 L (6.3-8.2) g/dL Albumin 1.9 L (3.5-5.0) g/dL Lipase (23-300) U/L 08/08/24 08/09/24 08/09/24 Range/Units 14:41 06:11 06:11 RBC 3.83 L (4.10-5.20) 10*6/uL Hgb 10.9 L (12.0-15.0) g/dL Hct 32.8 L (37.2-46.3) % RDW 18.3 H (11.5-14.5) % Lymphocytes # 0.83 L (0.90-5.00) 10*3/uL PT (10.0-12.5) sec INR (<1.2) D-Dimer (<0.60) mg/L FEU Sodium (137-145) mmol/L Potassium 3.3 L (3.5-5.1) mmol/L Chloride 108 H (98-107) mmol/L Glucose (74-99) mg/dL Calcium 7.3 L (8.4-10.2) mg/dL Total Bilirubin 1.5 H (0.2-1.3) mg/dL AST 56 H (14-36) U/L ALT 42 H (4-34) U/L Alkaline Phosphatase 377 H (38-126) U/L Total Protein 4.8 L (6.3-8.2) g/dL Albumin 1.7 L (3.5-5.0) g/dL Lipase 15 L (23-300) U/L Assessment and Plan Assessment: 1. Increased lower extremity weakness and swelling 2. History of pancreatic cancer 3. History of COPD 4. History of obstructive sleep apnea 5. History of osteoarthritis 6. History of depression and anxiety 7. History of essential hypertension 8. History of hyperlipidemia DVT prophylaxis Lovenox. GI prophylaxis Protonix Oncology services consulted PT OT services consulted
[2024-08-09] MEDS: SIMETHICONE 80 MG CHEWABLE PO SCH (10:16)
[2024-08-09] MEDS: GABAPENTIN 300 MG CAP PO SCH (10:17)
[2024-08-09] MEDS: DULoxetine HCL 60 MG CAPSULE.DR PO SCH (10:17)
[2024-08-09] MEDS: POTASSIUM CHLORIDE ER 20 MEQ TAB.ER PO SCH (10:18)
[2024-08-09] MEDS: FAMOTIDINE 20 MG TAB PO SCH (10:18)
[2024-08-09] MEDS: LEVOTHYROXINE 25 MCG TAB PO SCH (10:41)
--- NOTE | 2024-08-09 14:58 | CT ---
EXAMINATION TYPE: CT chest angio for PE DATE OF EXAM: 08/09/2024 COMPARISON: Chest abdomen pelvis dated 12/22/2023 CT chest abdomen pelvis dated 12/22/2023 CLINICAL INDICATION: Female, 59 years old with history of elevated d-dimer; PHH, elevated d-dimer, SO B or PAIN. History of pancreatic cancer TECHNIQUE: Ct angiogram of the chest performed with with IV Contrast, patient injected with 100 ml mL of Isovue 370. MIP images are created and reviewed. CT DLP: 159.[address] CTDI: mGy Automated exposure control for dose reduction was used. FINDINGS: There is a small right effusion and a moderate left effusion. There is a left lower lobe infiltrate a djacent to the effusion which likely represents mild compressive atelectasis. There is a calcified gr anuloma in the right upper lobe and a 4.5 mm noncalcified nodule in the right upper lobe. There is no suspicious lung mass or nodule. There are no filling defects in the pulmonary arterial circulation. Great vessels chest are normal. T here is a Mediport catheter tip in the SVC/RA junction. There is a partially intrathoracic stomach and large hiatal hernia. There is a large stent within the stomach antrum into the duodenum. There is marked ascites. There are no focal osseous lesions. IMPRESSION: 1. No evidence of pulmonary embolus. 2. small right pleural effusion and moderate left pleural effusion with compressive atelectasis adjac ent to the left pleural effusion. 3. Large hiatal hernia and partially intrathoracic stomach. 4. Marked ascites in the upper abdomen. 5. Stent in the distal stomach and proximal duodenum. [facility], , 08/09/2024 2:56 PM
[2024-08-09] MEDS: FERROUS SULFATE 325 MG TAB PO SCH (17:20)
--- NOTE | 2024-08-09 20:07 | P.CONS ---
History of Present Illness - Reason for Consult Consult date: 08/09/24 pancreatic cancer Requesting physician: Otoniel Arroyo - Chief Complaint leg swelling - History of Present Illness Ms. Mallory is a pleasant female who is currently undergoing treatment for pancreatic adenocarcinoma with Oncologist Dr. Murray. She was initially evaluated by her PCP in 08/15 because of elevated liver enzymes. CT AP at [facility] 08/27/22 showed post mastectomy changes, with prominent intra-and extrahepatic biliary ductal dilatation with focal tapering in the region of the head of the pancreas. CXR did not show any significant findings. She was sent to [facility], where she had ERCP with EUS on 09/01/22. This revealed Reina esophagus and sev ere stricture in the distal bile duct due to pancreatic head mass. Stent was placed. EUS revealed a 3.1 x 2.2 cm mass with significant involvement of the portal vein. Case was presented at the [facility] tumor Board on 09/03/22 and she was deemed not to be a surgical candidate, systemic chemotherapy was recommended and she was referred to Dr. Murray. Pt could not keep her initial appointment on 09/15/22 as she developed vomiting of blood. EGD showed a mucosal erosion next to the stent, which was felt to be the cause. Hgb remained overall stable after a transient drop. She was discharged on PPI and was seen for initial consultation on 09/30/22. She had lost about 130lbs over the previous year, she r eported heavy alcohol use, quitting in 2021. She had staging PET scan that showed no evidence of metastatic disease. She started FOLFIRINOX 11/03/22, and completed cycle 5 on 01/20 with G-CSF. Regimen has been dose reduced due to adverse side effects. She started FOLFIRINOX on 11/03/22 and completed 5 cycles, however, due to treatment intoleracne regimen was stopped. She was changed to gemzar and abraxane and started regimen on 02/26/23, and completed cycle 4, day 1 on 05/26. Treatment response CT scan showed stable subcentimeter lung nodules. The pancreatic mass appears to be unchanged, with evidence of involvement of the portal vein. Plan was to continue her current regimen, and referral back to surgical oncology. If they feel that she continues to be not a surgical candidate, we will continue the current regimen for 6 cycles, and then proceed to chemoradiation. Since pt has completed 4 cycles of gemza/abraxane and XRT. The patient has had stent placement for gastric outlet or duodenal obstruction. CT scans from 05/16 done at [facility] had shown no evidence of cancer recurrence. She is scheduled for repeat scans at [facility] later this month. Patient presented to the emergency room for bilateral lower leg and feet swelling with difficulties ambulating. She also reports bilateral feet nu mbness. That has been an ongoing issue. Upon admit chest x-ray showed new small left pleural effusion. Patient denies recent weight loss, actually is reporting she has been eating better and gaining weight. Labs reviewed, WBC 5.7, hemoglobin 10.9, platelets 204,000, creatinine 0.75, GFR is 86, bilirubin 1.8, transaminitis noted. BNP 703. Review of Systems 10 point ROS is negative except as stated in the HPI Past Medical History Past Medical History: Asthma, Cancer, COPD, GERD/Reflux, Memory Impairment, Musculoskeletal Disorder, Osteoarthritis (OA), Sleep Apnea/CPAP/BIPAP Additional Past Medical History / Comment(s): PT STATES SOME MEMORY PROBLEMS AND LEARNING DISABILITY, HAS FRIEND WHO HELPS HER WITH MEDICATIONS AND APPTS., STATES MUSCLE SPASMS, BACK PROBLEMS WITH DISC DISEASE, ANEMIA, URINARY URGENCY, PROBLEMS WITH DIARRHEA & CONSTIPATION.Pancreatic CA diagnosed August 2022, started chemo on 11/03/22 History of Any Multi-Drug Resistant Organisms: None Reported Past Surgical History: Section, Cholecystectomy, Hysterectomy Additional Past Surgical History / Comment(s): 2 C-SECTIONS, PARTIAL HYSTERECTOMY, BERNADETTE REMOVED. States she had a stent after "yellow jaundice" due to a blockage, done Bruce Valentine, COLONOSCOPY, EGD Past Anesthesia/Blood Transfusion Reactions: Motion Sickness Additional Past Anesthesia/Blood Transfusion Reaction / Comm: STATES DIFFICULTY WAKING UP AFTER ANESTHESIA, has had two blood transfusion without incident Past Psychological History: Anxiety, Depression Smoking Status: Former smoker Past Alcohol Use History: None Reported Past Drug Use History: None Reported - Past Family History Mother Family Medical History: Cancer Additional Family Medical History / Comment(s): LUNG AND BRAIN CA Medications and Allergies Home Medications Medication Instructions Recorded Confirmed Type DULoxetine HCL [Cymbalta] 60 mg PO DAILY 11/03/22 08/08/24 History Ferrous Sulfate [Iron] 325 mg PO BID-W/MEALS 11/03/22 08/08/24 History Midodrine HCl 5 mg PO TID PRN 11/03/22 08/08/24 History Potassium Chloride ER [K-Dur 20] 20 meq PO DAILY 11/03/22 08/08/24 History Famotidine [Pepcid] 40 mg PO DAILY 11/28/22 08/08/24 History lamoTRIgine [LaMICtal] 75 mg PO HS 11/28/22 08/08/24 History Gabapentin 300 mg PO TID 05/29/23 08/08/24 History Pantoprazole [Protonix] 40 mg PO BID 06/04/23 08/08/24 History traMADol HCL 50 mg PO Q6H PRN 09/14/23 08/08/24 History Levothyroxine Sodium [Synthroid] 25 mcg PO DAILY 08/08/24 08/08/24 History Loperamide [Imodium] 4 mg PO QID PRN 08/08/24 08/08/24 History OLANZapine [ZyPREXA] 2.5 mg PO HS 08/08/24 08/08/24 History Ondansetron Odt [Zofran Odt] 4 mg PO BID PRN 08/08/24 08/08/24 History Simethicone [Mylanta Gas Minis] 125 mg PO BID 08/08/24 08/08/24 History Vitamin D3(Unknown Dose) 1 tab PO DAILY 08/08/24 History Allergies Allergy/AdvReac Type Severity Reaction Status Date / Time No Known Allergies Allergy Verified 08/08/24 17:09 Physical Exam Vitals: Vital Signs Temp Pulse Pulse Resp BP BP Pulse Ox 08/09/24 08:05 97.9 F 89 14 116/81 94 L 08/09/24 06:11 98.2 F 76 14 94/66 96 08/09/24 04:00 97.7 F 77 12 96/68 95 08/08/24 20:20 97.8 F 80 16 104/75 98 08/08/24 18:26 92 16 117/84 97 08/08/24 16:02 78 14 106/94 97 08/08/24 13:28 97.5 F L 140 H 20 104/77 99 Intake and Output 08/08/24 08/09/24 08/09/24 22:59 06:59 14:59 Other: # Bowel Movements 1 - Constitutional General appearance: thin - EENT Eyes: anicteric sclerae, EOMI ENT: hearing grossly normal - Respiratory breathing is even and unlabored - Cardiovascular skin warm and dry BLE edema - Gastrointestinal General gastrointestinal: soft, no tenderness - Integumentary Integumentary: no cyanotic, no jaundiced - Musculoskeletal Musculoskeletal: generalized weakness - Psychiatric Psychiatric: A&O x's 3 Results CBC & Chem 7: 08/09/24 06:11 08/09/24 06:11 Labs: Abnormal Lab Results - Last 24 Hours (Table) 08/08/24 08/08/24 08/08/24 Range/Units 14:41 14:41 14:41 RBC 4.01 L (4.10-5.20) 10*6/uL Hgb 11.3 L (12.0-15.0) g/dL Hct 33.8 L (37.2-46.3) % RDW (11.5-14.5) % Lymphocytes # 0.51 L (0.90-5.00) 10*3/uL PT 13.3 H (10.0-12.5) sec INR 1.2 H (<1.2) D-Dimer 0.98 H (<0.60) mg/L FEU Sodium 136 L (137-145) mmol/L Potassium 3.2 L (3.5-5.1) mmol/L Chloride (98-107) mmol/L Glucose 113 H (74-99) mg/dL Calcium 7.5 L (8.4-10.2) mg/dL Total Bilirubin 1.8 H (0.2-1.3) mg/dL AST 67 H (14-36) U/L ALT 45 H (4-34) U/L Alkaline Phosphatase 412 H (38-126) U/L Total Protein 5.2 L (6.3-8.2) g/dL Albumin 1.9 L (3.5-5.0) g/dL Lipase (23-300) U/L 08/08/24 08/09/24 08/09/24 Range/Units 14:41 06:11 06:11 RBC 3.83 L (4.10-5.20) 10*6/uL Hgb 10.9 L (12.0-15.0) g/dL Hct 32.8 L (37.2-46.3) % RDW 18.3 H (11.5-14.5) % Lymphocytes # 0.83 L (0.90-5.00) 10*3/uL PT (10.0-12.5) sec INR (<1.2) D-Dimer (<0.60) mg/L FEU Sodium (137-145) mmol/L Potassium 3.3 L (3.5-5.1) mmol/L Chloride 108 H (98-107) mmol/L Glucose (74-99) mg/dL Calcium 7.3 L (8.4-10.2) mg/dL Total Bilirubin 1.5 H (0.2-1.3) mg/dL AST 56 H (14-36) U/L ALT 42 H (4-34) U/L Alkaline Phosphatase 377 H (38-126) U/L Total Protein 4.8 L (6.3-8.2) g/dL Albumin 1.7 L (3.5-5.0) g/dL Lipase 15 L (23-300) U/L Chest x-ray: report reviewed Assessment and Plan (1) Bilateral leg edema Current Visit: Yes Status: Acute Priority: High Code(s): R60.0 - LOCALIZED EDEMA SNOMED Code(s): 907506503 (2) Primary pancreatic adenocarcinoma Current Visit: No Status: Acute Priority: High Code(s): C25.9 - MALIGNANT NEOPLASM OF PANCREAS, UNSPECIFIED SNOMED Code(s): 1083826831654 Plan: BLE edema: Presented to the emergency room for bilateral lower leg and feet swelling with difficulties ambulating. -Upon admit chest x-ray showed new small left pleural effusion. - BNP 703 -May be component of third spacing due to hypoalbuminemia -PT consulted -Continue to monitor Pancreatic cancer: -Oncology history as dictated in the HPI -Most recently pt completed completed 4 cycles of gemzar/abraxane and XRT. The patient then had stent placement for gastric outlet or duodenal obstruction. -CT scans from 05/16 done at [facility] had showed no evidence of cancer recurrence. She is scheduled for repeat scans at [facility] later this month. -Bilirubin 1.8, transaminitis noted. -Repeat CA 19-9 Attests: I have seen and examined pt, performed H&P, developed impression and plan of care. Discussed with dictator. Agree with documentation, dictated as a scribe
[2024-08-09] MEDS: lamoTRIgine 25 MG TAB PO SCH (20:44)
[2024-08-09] MEDS: OLANZapine 2.5 MG TAB PO SCH (20:46)
[2024-08-10 06:45] LABS: ALT 39 U/L (4-34); AST 59 U/L (14-36); African American GFR (CKD) >90 (>60 ml/min/1.73 sqM); Albumin 1.7 g/dL (3.5-5.0); Albumin/Globulin Ratio 0.6; Alkaline Phosphatase 392 U/L (38-126); Anion Gap 4 mmol/L; Blood Urea Nitrogen 13 mg/dL (7-17); Calcium 7.5 mg/dL (8.4-10.2); Carbon Dioxide 24 mmol/L (22-30); Chloride 104 mmol/L (98-107); Globulin 2.9 g/dL; Glucose 85 mg/dL (74-99); Non-African American GFR(CKD) >90 (>60 ml/min/1.73 sqM); Potassium 3.7 mmol/L (3.5-5.1); Sodium 132 mmol/L (137-145); Total Bilirubin 1.4 mg/dL (0.2-1.3); Total Protein 4.6 g/dL (6.3-8.2)
[2024-08-10 08:15] LABS: Basophils # (A) 0.05 X 10*3/uL (0.00-0.10); Eosinophils # (A) 0.22 X 10*3/uL (0.04-0.35); Eosinophils % (A) 4.5 %; HCT 34.1 % (37.2-46.3); HGB 10.7 g/dL (12.0-15.0); Lymphocytes % (A) 18.3 %; MCH 27.6 pg (27.0-32.0); MCHC 31.4 g/dL (32.0-37.0); MCV 88.1 FL (80.0-97.0); Mean Platelet Volume 9.9 FL (9.5-12.2); Monocytes # (A) 0.46 X 10*3/uL (0.20-1.00); Monocytes % (A) 9.3 %; NRBC Per 100 WBC 0 X 10*3/uL (0.00-0.01); Neutrophils # (A) 3.26 X 10*3/uL (1.80-7.70); Neutrophils % (A) 66.3 %; Platelet Count 206 X 10*3/uL (140-440); RBC 3.87 X 10*6/uL (4.10-5.20); RDW 18.5 % (11.5-14.5); WBC 4.92 X 10*3/uL (4.50-10.00)
[2024-08-10] MEDS: ENOXAPARIN 40 MG/0.4 ML SYRINGE SQ SCH (08:15)
--- NOTE | 2024-08-10 17:39 | P.PN ---
Subjective Progress Note Date: 08/10/24 Luz Marina Mallory is a 59-year-old female patient who presented to the ER with concerns of increased lower extremity swollen and weakness. Patient has a past medical history of pancreatic cancer. Additional medical history includes asthma, cancer, COPD, GERD, memory impairment, osteoarthritis anxiety and depression. Chest x-ray completed in ER showing new small left pleural effusion. Venous Doppler completed showing negative for DVT. Current vital signs temp 97.8, heart rate 80, respiratory rate 16, blood pressure 1 104/75 with pulse ox 98% on room air. Lab work completed showing influenza RSV and COVID-19 negative. Troponin negative. BNP of 703 alkaline phosphatase 377, ALT 42, AST 56 and total bili 1.5 potassium low at 3.3 will replace per protocol, hemoglobin 10.9 and white blood cells 5.70. At this time patient will be admitted oncology services consulted repeat chest x-ray ordered. On 08/10/2024 patient was seen and examined on the medical floor she is alert and oriented x 3 in no apparent distress she is still complaining of shortness of breath with activity and complaining of lower extremity edema vital exam reveals a temperature of 97.4 pulse 52 respiration 20 blood pressure 109/77 pulse ox 97% on room air white blood count 4.92 hemoglobin 10.7 platelet count 206 BUN 13 creatinine 0.71 albumin is very low at 1.7 at this time will add protein supplement and IV Lasix awaiting further recommendation from oncology Objective - Vital Signs Vital signs: Vital Signs Temp 97.4 F L 08/10/24 12:50 Pulse 52 L 08/10/24 12:50 Resp 20 08/10/24 12:50 BP 109/77 08/10/24 12:50 Pulse Ox 97 08/10/24 12:50 FiO2 Intake & Output 08/09/24 08/10/24 08/10/24 18:59 06:59 18:59 Intake Total 1080 540 Balance 1080 540 Weight 45.813 kg Intake: Oral 1080 540 Other: Voiding Method Bedside Commode # Voids 1 1 1 # Bowel Movements 1 - Exam In general patient is alert and oriented Ã-3 in no distress HEENT head normocephalic and atraumatic Neck is supple no JVD no goiter no lymphadenopathy no carotid bruit Chest examination is clear to auscultation no crackles no wheezing Cardiac exam reveals regular heart sounds S1 and S2 no gallops no murmurs Abdomen is soft nontender no organomegaly with normal bowel sounds Extremity exam reveals 2 + edema no cyanosis or clubbing Neurological examination reveals no gross focal deficits - Labs CBC & Chem 7: 08/10/24 05:43 08/10/24 05:43 Labs: Abnormal Lab Results - Last 24 Hours (Table) 08/10/24 08/10/24 Range/Units 05:43 05:43 RBC 3.87 L (4.10-5.20) X 10*6/uL Hgb 10.7 L (12.0-15.0) g/dL Hct 34.1 L (37.2-46.3) % MCHC 31.4 L (32.0-37.0) g/dL RDW 18.5 H (11.5-14.5) % Sodium 132 L (137-145) mmol/L Calcium 7.5 L (8.4-10.2) mg/dL Total Bilirubin 1.4 H (0.2-1.3) mg/dL AST 59 H (14-36) U/L ALT 39 H (4-34) U/L Alkaline Phosphatase 392 H (38-126) U/L Total Protein 4.6 L (6.3-8.2) g/dL Albumin 1.7 L (3.5-5.0) g/dL Assessment and Plan Assessment: 1. Increased lower extremity weakness and swelling 2. History of pancreatic cancer 3. History of COPD 4. History of obstructive sleep apnea 5. History of osteoarthritis 6. History of depression and anxiety 7. History of essential hypertension 8. History of hyperlipidemia DVT prophylaxis Lovenox. GI prophylaxis Protonix Oncology services consulted PT OT services consulted
[2024-08-10] MEDS: FUROSEMIDE 10 MG/ML 2 ML VIAL IV SCH (18:21)
[2024-08-10] MEDS: IOPAMIDOL CONTRAST (ORAL USE) VIAL PO PRN (18:21)
--- NOTE | 2024-08-10 19:40 | P.PN ---
Subjective Progress Note Date: 08/10/24 Patient reports she has been working with PT today but began experiencing increasing leg weakness and shortness of breath. Objective - Vital Signs Vital signs: Vital Signs Temp 97.4 F L 08/10/24 12:50 Pulse 52 L 08/10/24 12:50 Resp 20 08/10/24 12:50 BP 109/77 08/10/24 12:50 Pulse Ox 97 08/10/24 12:50 FiO2 Intake & Output 08/09/24 08/10/24 08/10/24 18:59 06:59 18:59 Intake Total 1080 540 Balance 1080 540 Weight 45.813 kg Intake: Oral 1080 540 Other: Voiding Method Bedside Commode # Voids 1 1 1 # Bowel Movements 1 - Constitutional General appearance: Present: no acute distress - EENT Eyes: Present: anicteric sclerae, EOMI ENT: Present: hearing grossly normal - Respiratory Details: breathing even and unlabored - Cardiovascular Details: skin warm and dry - Gastrointestinal Gastrointestinal Comment(s): soft, non tender, mild distention - Integumentary Integumentary: Absent: cyanotic, jaundiced - Musculoskeletal Musculoskeletal: Present: generalized weakness - Psychiatric Psychiatric: Present: A&O x's 3 - Labs CBC & Chem 7: 08/10/24 05:43 08/10/24 05:43 Labs: Abnormal Lab Results - Last 24 Hours (Table) 08/10/24 08/10/24 Range/Units 05:43 05:43 RBC 3.87 L (4.10-5.20) X 10*6/uL Hgb 10.7 L (12.0-15.0) g/dL Hct 34.1 L (37.2-46.3) % MCHC 31.4 L (32.0-37.0) g/dL RDW 18.5 H (11.5-14.5) % Sodium 132 L (137-145) mmol/L Calcium 7.5 L (8.4-10.2) mg/dL Total Bilirubin 1.4 H (0.2-1.3) mg/dL AST 59 H (14-36) U/L ALT 39 H (4-34) U/L Alkaline Phosphatase 392 H (38-126) U/L Total Protein 4.6 L (6.3-8.2) g/dL Albumin 1.7 L (3.5-5.0) g/dL Assessment and Plan (1) Bilateral leg edema Current Visit: Yes Status: Acute Priority: High Code(s): R60.0 - LOCALIZED EDEMA SNOMED Code(s): 884244896 (2) Primary pancreatic adenocarcinoma Current Visit: No Status: Acute Priority: High Code(s): C25.9 - MALIGNANT NEOPLASM OF PANCREAS, UNSPECIFIED SNOMED Code(s): 9642797201706 Plan: BLE edema, weakness: Presented to the emergency room for bilateral lower leg and feet swelling with difficulties ambulating. -Upon admit chest x-ray showed new small left pleural effusion. -BNP 703. Continues lasix daily -CTA chest negative for PE. Small right pleural effusion and moderate left pleural effusion -May be component of third spacing due to hypoalbuminemia -PT consulted -Continue to monitor Pancreatic cancer: -Oncology history as dictated in the HPI -Most recently pt completed completed 4 cycles of gemzar/abraxane and XRT. The patient then had stent placement for gastric outlet or duodenal obstruction. -CT scans from 05/16 done at [facility] had showed no evidence of cancer recurrence. She was scheduled for repeat scans at [facility] later this month. -Bilirubin 1.8, transaminitis noted. -Repeat CA 19-9 elevated at 238, from 117 on 06/22/24 -CTA chest noted marked ascites in upper abdomen. Will obtain CT AP to further evaluate
--- NOTE | 2024-08-10 21:23 | CT ---
EXAMINATION TYPE: CT abdomen pelvis w con DATE OF EXAM: 08/10/2024 7:46 PM COMPARISON: Recent CT abdomen/pelvis study of 06/30/2024. CLINICAL INDICATION: Female, 59 years old with history of pancreatic cancer, ascites; pancreatic ca TECHNIQUE: Axial CT abdomen pelvis w con;Sagittal and coronal reformats were created on a separate w orkstation. Contrast used:80 mL of Isovue 300 with IV Contrast, Oral contrast used: without Oral Contrast CT DLP: 619.7 mGycm, Automated exposure control for dose reduction was used. FINDINGS: LOWER CHEST: Unremarkable ABDOMEN LIVER: Severe hepatic steatosis. GALLBLADDER AND BILE DUCTS: G absent. CBD stent in place with pneumobilia suggesting stent patency. PANCREAS: Grossly stable appearance of the pancreas with likely severe atrophy. No definitive gastroj ejunostomy to suggest previous Whipple's. Recommend correlation with patient's clinical history. Ther e is soft tissue encasement involving the celiac artery and likely common hepatic artery. 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 SPLEEN: Unremarkable. ADRENAL GLANDS: Unremarkable. KIDNEYS AND URETERS: No evidence of hydronephrosis or renal calculus. The ureters are unremarkable. PELVIS BLADDER: No evidence for wall thickening or mass given limitations of exam. REPRODUCTIVE: Unremarkable. ABDOMEN & PELVIS STOMACH AND BOWEL: Gastroduodenal stent in similar positioning to prior studies. Moderate-sized herni a with partial intrathoracic stomach. No evidence of small bowel obstruction. PERITONEUM/RETROPERITONEUM: Moderate volume free fluid throughout the abdomen. No evidence of free ai r/pneumoperitoneum. VASCULATURE: No evidence of aortic aneurysm. MUSCULOSKELETAL: No acute osseous abnormalities LYMPH NODES: No gross evidence for lymphadenopathy. SOFT TISSUE/ABDOMINAL WALL: Body wall edema/anasarca. IMPRESSION: 1. Moderate left and small right pleural effusions with adjacent lower lobe compressive atelectasis, increasing from prior study. 2. Otherwise, overall, no additional significant interval changes from recent CT abdomen/pelvis stud y dated 07/10/2024. There is persistent soft tissue encasement of the celiac artery and common hepatic artery with ill-defined soft tissue stranding near the region of the pancreas head and overall sever e pancreatic parenchymal atrophy. 3. CBD stent in place with pneumobilia suggesting stent patency. Gastroduodenal stent in stable posi tioning. 4. Moderate diffuse abdominal ascites. [facility], , 08/10/2024 9:21 PM
[2024-08-11 08:41] LABS: ALT 48 U/L (8-44); AST 57 U/L (13-35); Albumin 1.7 g/dL (3.8-4.9); Albumin/Globulin Ratio 0.59 Ratio (1.60-3.17); Alkaline Phosphatase 394 U/L (41-126); BUN/Creat Ratio 13.62 Ratio (12.00-20.00); Blood Urea Nitrogen 10.9 mg/dL (9.0-27.0); Calcium 7.2 mg/dL (8.7-10.3); Carbon Dioxide 23.1 mmol/L (21.6-31.8); Chloride 103 mmol/L (96-109); Globulin 2.9 g/dL (1.6-3.3); Glucose 119 mg/dL (70-110); Potassium 3.2 mmol/L (3.5-5.5); Sodium 136 mmol/L (135-145); Total Bilirubin 1.4 mg/dL (0.3-1.2); Total Protein 4.6 g/dL (6.2-8.2)
[2024-08-11 08:47] LABS: Basophils # (A) 0.05 X 10*3/uL (0.00-0.10); Eosinophils # (A) 0.11 X 10*3/uL (0.04-0.35); Eosinophils % (A) 2.2 %; HCT 32.7 % (37.2-46.3); HGB 10.7 g/dL (12.0-15.0); Lymphocytes # (A) 0.61 X 10*3/uL (0.90-5.00); Lymphocytes % (A) 12.1 %; MCH 28.2 pg (27.0-32.0); MCHC 32.7 g/dL (32.0-37.0); MCV 86.1 FL (80.0-97.0); Monocytes % (A) 7.9 %; NRBC Per 100 WBC 0 X 10*3/uL (0.00-0.01); Neutrophils # (A) 3.83 X 10*3/uL (1.80-7.70); Neutrophils % (A) 75.8 %; Platelet Count 230 X 10*3/uL (140-440); RDW 18.1 % (11.5-14.5); WBC 5.05 X 10*3/uL (4.50-10.00)
[2024-08-11] MEDS: PANTOPRAZOLE 40 MG TABLET PO SCH (09:37)
[2024-08-11] MEDS: ONDANSETRON 4 MG/2 ML VIAL IVP PRN (09:52)
[2024-08-11] MEDS ORDERED: Potassium Replacement Protocol 1 EACH MISC MISCELLANE PRN (10:02)
[2024-08-11] MEDS: POTASSIUM CHLORIDE ER 20 MEQ TAB.ER PO SCH (10:52)
--- NOTE | 2024-08-11 10:58 | P.PN ---
Subjective Progress Note Date: 08/11/24 Luz Marina Mallory is a 59-year-old female patient who presented to the ER with concerns of increased lower extremity swollen and weakness. Patient has a past medical history of pancreatic cancer. Additional medical history includes asthma, cancer, COPD, GERD, memory impairment, osteoarthritis anxiety and depression. Chest x-ray completed in ER showing new small left pleural effusion. Venous Doppler completed showing negative for DVT. Current vital signs temp 97.8, heart rate 80, respiratory rate 16, blood pressure 1 104/75 with pulse ox 98% on room air. Lab work completed showing influenza RSV and COVID-19 negative. Troponin negative. BNP of 703 alkaline phosphatase 377, ALT 42, AST 56 and total bili 1.5 potassium low at 3.3 will replace per protocol, hemoglobin 10.9 and white blood cells 5.70. At this time patient will be admitted oncology services consulted repeat chest x-ray ordered. On 08/10/2024 patient was seen and examined on the medical floor she is alert and oriented x 3 in no apparent distress she is still complaining of shortness of breath with activity and complaining of lower extremity edema vital exam reveals a temperature of 97.4 pulse 52 respiration 20 blood pressure 109/77 pulse ox 97% on room air white blood count 4.92 hemoglobin 10.7 platelet count 206 BUN 13 creatinine 0.71 albumin is very low at 1.7 at this time will add protein supplement and IV Lasix awaiting further recommendation from oncology On 08/11/2024 patient is alert and oriented x 3. Plans today for paracentesis per IR. Discussed case with oncology services cytology will be sent to assess for possible malignancy progression. potassium low at 3.2 orders placed for replace per protocol. Patient denies chest pain or shortness of breath. Patient denies nausea vomiting or diarrhea. Patient denies any urinary burning or frequency Objective - Vital Signs Vital signs: Vital Signs Temp 97.5 F L 08/11/24 07:33 Pulse 76 08/11/24 07:33 Resp 16 08/11/24 07:33 BP 103/51 08/11/24 07:33 Pulse Ox 95 08/11/24 07:33 FiO2 Intake & Output 08/10/24 08/11/24 08/11/24 18:59 06:59 18:59 Intake Total 540 Balance 540 Intake: Oral 540 Other: # Voids 1 1 - Exam In general patient is alert and oriented Ã-3 in no distress HEENT head normocephalic and atraumatic Neck is supple no JVD no goiter no lymphadenopathy no carotid bruit Chest examination is clear to auscultation no crackles no wheezing Cardiac exam reveals regular heart sounds S1 and S2 no gallops no murmurs Abdomen is soft nontender no organomegaly with normal bowel sounds Extremity exam reveals 2 + edema no cyanosis or clubbing Neurological examination reveals no gross focal deficits - Labs CBC & Chem 7: 08/11/24 06:00 08/11/24 06:00 Labs: Abnormal Lab Results - Last 24 Hours (Table) 08/11/24 08/11/24 Range/Units 06:00 06:00 RBC 3.80 L (4.10-5.20) X 10*6/uL Hgb 10.7 L (12.0-15.0) g/dL Hct 32.7 L (37.2-46.3) % RDW 18.1 H (11.5-14.5) % Immature Gran # 0.05 H (0.00-0.04) X 10*3/uL Lymphocytes # 0.61 L (0.90-5.00) X 10*3/uL Potassium 3.2 L (3.5-5.5) mmol/L Glucose 119 H (70-110) mg/dL Calcium 7.2 L (8.7-10.3) mg/dL Total Bilirubin 1.4 H (0.3-1.2) mg/dL AST 57 H (13-35) U/L ALT 48 H (8-44) U/L Alkaline Phosphatase 394 H (41-126) U/L Total Protein 4.6 L (6.2-8.2) g/dL Albumin 1.7 L (3.8-4.9) g/dL Albumin/Globulin Ratio 0.59 L (1.60-3.17) Ratio Assessment and Plan Assessment: 1. Increased lower extremity weakness and swelling 2. History of pancreatic cancer 3. History of COPD 4. History of obstructive sleep apnea 5. History of osteoarthritis 6. History of depression and anxiety 7. History of essential hypertension 8. History of hyperlipidemia DVT prophylaxis Lovenox. GI prophylaxis Protonix Oncology services consulted PT OT services consulted
--- NOTE | 2024-08-11 16:47 | P.PN ---
Subjective Progress Note Date: 08/11/24 Patient reports n/v this morning. C/o generalized weakness and persisting BLE edema. Objective - Vital Signs Vital signs: Vital Signs Temp 97.5 F L 08/11/24 07:33 Pulse 76 08/11/24 07:33 Resp 16 08/11/24 07:33 BP 103/51 08/11/24 07:33 Pulse Ox 95 08/11/24 07:33 FiO2 Intake & Output 08/10/24 08/11/24 08/11/24 18:59 06:59 18:59 Intake Total 540 Balance 540 Intake: Oral 540 Other: # Voids 1 1 - Constitutional General appearance: Present: no acute distress - EENT Eyes: Present: anicteric sclerae, EOMI ENT: Present: hearing grossly normal - Respiratory Details: breathing is even and unlabored - Cardiovascular Details: skin warm and dry - Gastrointestinal General gastrointestinal: Present: distended - Integumentary Integumentary: Absent: cyanotic - Musculoskeletal Musculoskeletal: Present: generalized weakness - Psychiatric Psychiatric: Present: A&O x's 3 - Labs CBC & Chem 7: 08/11/24 06:00 08/11/24 06:00 Labs: Abnormal Lab Results - Last 24 Hours (Table) 08/11/24 08/11/24 Range/Units 06:00 06:00 RBC 3.80 L (4.10-5.20) X 10*6/uL Hgb 10.7 L (12.0-15.0) g/dL Hct 32.7 L (37.2-46.3) % RDW 18.1 H (11.5-14.5) % Immature Gran # 0.05 H (0.00-0.04) X 10*3/uL Lymphocytes # 0.61 L (0.90-5.00) X 10*3/uL Potassium 3.2 L (3.5-5.5) mmol/L Glucose 119 H (70-110) mg/dL Calcium 7.2 L (8.7-10.3) mg/dL Total Bilirubin 1.4 H (0.3-1.2) mg/dL AST 57 H (13-35) U/L ALT 48 H (8-44) U/L Alkaline Phosphatase 394 H (41-126) U/L Total Protein 4.6 L (6.2-8.2) g/dL Albumin 1.7 L (3.8-4.9) g/dL Albumin/Globulin Ratio 0.59 L (1.60-3.17) Ratio Assessment and Plan (1) Bilateral leg edema Current Visit: Yes Status: Acute Priority: High Code(s): R60.0 - LOCALIZED EDEMA SNOMED Code(s): 454467248 (2) Primary pancreatic adenocarcinoma Current Visit: No Status: Acute Priority: High Code(s): C25.9 - MALIGNANT NEOPLASM OF PANCREAS, UNSPECIFIED SNOMED Code(s): 6864290456701 Plan: BLE edema, weakness: Presented to the emergency room for bilateral lower leg and feet swelling with difficulties ambulating. -Upon admit chest x-ray showed new small left pleural effusion. -BNP 703. Continues lasix daily -CTA chest negative for PE. Small right pleural effusion and moderate left pleural effusion -May be component of third spacing due to hypoalbuminemia -PT consulted -Continue to monitor Pancreatic cancer: -Oncology history as dictated in the HPI -Most recently pt completed completed 4 cycles of gemzar/abraxane and XRT. The patient then had stent placement for gastric outlet or duodenal obstruction. -CT scans from 05/16 done at [facility] had showed no evidence of cancer recurrence. She was scheduled for repeat scans at [facility] later this month. -Bilirubin 1.8, transaminitis noted. -Repeat CA 19-9 elevated at 238, from 117 on 06/22/24 -CTA chest noted marked ascites in upper abdomen. -CT AP revealed moderate diffuse abdominal ascites. Otherwise overall no significant interval changes from recent CT abdomen pelvis. With persistent soft tissue encasement of the celiac artery and common hepatic artery with ill- defined soft tissue stranding near the region of the pancreas head. CBD stent in place. -Paracentesis with fluid analysis ordered
[2024-08-11] MEDS: FUROSEMIDE 10 MG/ML 2 ML VIAL IV SCH (17:44)
[2024-08-12 07:42] LABS: Basophils # (A) 0.04 10*3/uL (0.00-0.10); Basophils % (A) 0.7 %; Eosinophils # (A) 0.14 10*3/uL (0.04-0.35); Eosinophils % (A) 2.3 %; HCT 31.2 % (37.2-46.3); HGB 10.5 g/dL (12.0-15.0); Lymphocytes # (A) 0.86 10*3/uL (0.90-5.00); Lymphocytes % (A) 14.1 %; MCH 28.6 pg (27.0-32.0); MCHC 33.7 g/dL (32.0-37.0); Mean Platelet Volume 9.3 fL (9.5-12.2); Monocytes # (A) 0.47 10*3/uL (0.20-1.00); Monocytes % (A) 7.7 %; Neutrophils # (A) 4.54 10*3/uL (1.80-7.70); Neutrophils % (A) 74.5 %; Platelet Count 236 10*3/uL (140-440); RBC 3.67 10*6/uL (4.10-5.20); RDW 18.2 % (11.5-14.5); WBC 6.09 10*3/uL (4.50-10.00)
[2024-08-12] MEDS: traMADol 50 MG TAB PO PRN (08:36)
--- NOTE | 2024-08-12 11:24 | US ---
EXAMINATION TYPE: US paracentesis abd w/image, diagnostic and therapeutic DATE OF EXAM: 08/12/2024 CLINICAL HISTORY: 59-year-old female with ascites and distention, history of pancreatic cancer. The procedure was discussed with the patient. The risks, complications, benefits, and alternatives we re discussed and any questions were answered. Informed consent was obtained. The patient was placed s upine on the ultrasound table and prepped and draped in the usual sterile fashion. All elements of maximal barrier technique were utilized. Ultrasound was utilized to determine the precise skin entry site along the right lower quadrant/left flank. A 5 Azeri One-Step catheter and trocar technique was utilized to access the ascites collection under direct ultrasound guidance. Approximately 2.7 liters of clear, straw-colored fluid was removed. An initial 100 ml sample was col lected and labeled for laboratory analysis. Catheter was removed, hemostasis obtained, and a dressing placed. The patient was stable throughout the procedure and remained stable upon discharge from Department of Radiology. IMPRESSION: Successful diagnostic and therapeutic paracentesis under ultrasound guidance. 2.7 L of fluid removed. Laboratory analysis pending. [facility], , 08/12/2024 11:21 AM
--- NOTE | 2024-08-12 11:51 | P.PN ---
Subjective Progress Note Date: 08/12/24 Luz Marina Mallory is a 59-year-old female patient who presented to the ER with concerns of increased lower extremity swollen and weakness. Patient has a past medical history of pancreatic cancer. Additional medical history includes asthma, cancer, COPD, GERD, memory impairment, osteoarthritis anxiety and depression. Chest x-ray completed in ER showing new small left pleural effusion. Venous Doppler completed showing negative for DVT. Current vital signs temp 97.8, heart rate 80, respiratory rate 16, blood pressure 1 104/75 with pulse ox 98% on room air. Lab work completed showing influenza RSV and COVID-19 negative. Troponin negative. BNP of 703 alkaline phosphatase 377, ALT 42, AST 56 and total bili 1.5 potassium low at 3.3 will replace per protocol, hemoglobin 10.9 and white blood cells 5.70. At this time patient will be admitted oncology services consulted repeat chest x-ray ordered. On 08/10/2024 patient was seen and examined on the medical floor she is alert and oriented x 3 in no apparent distress she is still complaining of shortness of breath with activity and complaining of lower extremity edema vital exam reveals a temperature of 97.4 pulse 52 respiration 20 blood pressure 109/77 pulse ox 97% on room air white blood count 4.92 hemoglobin 10.7 platelet count 206 BUN 13 creatinine 0.71 albumin is very low at 1.7 at this time will add protein supplement and IV Lasix awaiting further recommendation from oncology On 08/11/2024 patient is alert and oriented x 3. Plans today for paracentesis per IR. Discussed case with oncology services cytology will be sent to assess for possible malignancy progression. potassium low at 3.2 orders placed for replace per protocol. Patient denies chest pain or shortness of breath. Patient denies nausea vomiting or diarrhea. Patient denies any urinary burning or frequency On 08/12/2024 patient is alert and oriented x 3 status post paracentesis 2.7 L removed sent for cytology. Current vital signs temp 97.9, heart rate 81, respiratory rate 17, blood pressure 108/77 with a pulse ox of 97% on room air. Patient denies chest pain or shortness of breath. Patient denies nausea vomiting or diarrhea. Patient denies any urinary burning or frequency Objective - Vital Signs Vital signs: Vital Signs Temp 97.9 F 08/12/24 07:51 Pulse 90 06/20/25 10:45 Resp 16 08/12/24 10:45 BP 109/77 08/12/24 10:45 Pulse Ox 95 08/12/24 10:45 FiO2 Intake & Output 08/11/24 08/12/24 08/12/24 18:59 06:59 18:59 Intake Total 600 Balance 600 Intake: Intake, IV Titration 600 Amount Dextrose 5%-0.45% NaCl 1, 600 000 ml @ 50 mls/hr IV . Q20H [facility] Rx#:[id number] Other: Voiding Method Bedside Commode Bedside Commode # Voids 1 2 1 - Exam In general patient is alert and oriented Ã-3 in no distress HEENT head normocephalic and atraumatic Neck is supple no JVD no goiter no lymphadenopathy no carotid bruit Chest examination is clear to auscultation no crackles no wheezing Cardiac exam reveals regular heart sounds S1 and S2 no gallops no murmurs Abdomen is soft nontender no organomegaly with normal bowel sounds Extremity exam reveals 2 + edema no cyanosis or clubbing Neurological examination reveals no gross focal deficits - Labs CBC & Chem 7: 08/12/24 06:50 08/11/24 06:00 Labs: Abnormal Lab Results - Last 24 Hours (Table) 08/12/24 Range/Units 06:50 RBC 3.67 L (4.10-5.20) 10*6/uL Hgb 10.5 L (12.0-15.0) g/dL Hct 31.2 L (37.2-46.3) % RDW 18.2 H (11.5-14.5) % MPV 9.3 L (9.5-12.2) fL Lymphocytes # 0.86 L (0.90-5.00) 10*3/uL Assessment and Plan Assessment: 1. Increased lower extremity weakness and swelling 2. History of pancreatic cancer 3. History of COPD 4. History of obstructive sleep apnea 5. History of osteoarthritis 6. History of depression and anxiety 7. History of essential hypertension 8. History of hyperlipidemia DVT prophylaxis Lovenox. GI prophylaxis Protonix Oncology services consulted PT OT services consulted Status post paracentesis on 08/12/2024
[2024-08-12 12:19] LABS: ALT 46 U/L (8-44); AST 50 U/L (13-35); Albumin 1.8 g/dL (3.8-4.9); Albumin/Globulin Ratio 0.67 Ratio (1.60-3.17); Alkaline Phosphatase 402 U/L (41-126); BUN/Creat Ratio 14.38 Ratio (12.00-20.00); Blood Urea Nitrogen 11.5 mg/dL (9.0-27.0); Calcium 7.2 mg/dL (8.7-10.3); Carbon Dioxide 23.3 mmol/L (21.6-31.8); Chloride 113 mmol/L (96-109); Globulin 2.7 g/dL (1.6-3.3); Glucose 110 mg/dL (70-110); Potassium 4.2 mmol/L (3.5-5.5); Sodium 147 mmol/L (135-145); Total Bilirubin 1.3 mg/dL (0.3-1.2); Total Protein 4.5 g/dL (6.2-8.2)
[2024-08-12 16:54] LABS: Appearance,BF Clear (Clear)
[2024-08-12 19:51] LABS: Glucose, BF Source Ascites; Glucose, Body Fluid 122 mg/dL; T. Protein, Body Fluid Source Ascites; Total Protein, Body Fluid 383 mg/dL
[2024-08-12] MEDS: ONDANSETRON 4 MG/2 ML VIAL IVP PRN (22:49)
[2024-08-13] MEDS ORDERED: ZINC OXIDE PASTE (Z-GUARD) 1 APPLIC TOPICAL PRN (09:34)
[2024-08-13 09:58] LABS: Basophils # (A) 0.03 X 10*3/uL (0.00-0.10); Basophils % (A) 0.4 %; Eosinophils # (A) 0.08 X 10*3/uL (0.04-0.35); Eosinophils % (A) 1.1 %; HCT 30.2 % (37.2-46.3); HGB 9.7 g/dL (12.0-15.0); Lymphocytes # (A) 0.79 X 10*3/uL (0.90-5.00); Lymphocytes % (A) 10.8 %; MCH 27.4 pg (27.0-32.0); MCHC 32.1 g/dL (32.0-37.0); MCV 85.3 FL (80.0-97.0); Mean Platelet Volume 10.1 FL (9.5-12.2); Monocytes # (A) 0.53 X 10*3/uL (0.20-1.00); Monocytes % (A) 7.3 %; NRBC Per 100 WBC 0 X 10*3/uL (0.00-0.01); Neutrophils # (A) 5.84 X 10*3/uL (1.80-7.70); Neutrophils % (A) 79.9 %; Platelet Count 234 X 10*3/uL (140-440); RBC 3.54 X 10*6/uL (4.10-5.20); WBC 7.31 X 10*3/uL (4.50-10.00)
[2024-08-13 10:22] LABS: ALT 45 U/L (8-44); AST 45 U/L (13-35); Albumin 1.6 g/dL (3.8-4.9); Albumin/Globulin Ratio 0.62 Ratio (1.60-3.17); Alkaline Phosphatase 400 U/L (41-126); Blood Urea Nitrogen 11.2 mg/dL (9.0-27.0); Carbon Dioxide 23.6 mmol/L (21.6-31.8); Chloride 102 mmol/L (96-109); Globulin 2.6 g/dL (1.6-3.3); Glucose 129 mg/dL (70-110); Potassium 3.4 mmol/L (3.5-5.5); Sodium 136 mmol/L (135-145); Total Bilirubin 1.5 mg/dL (0.3-1.2); Total Protein 4.2 g/dL (6.2-8.2)
--- NOTE | 2024-08-13 11:02 | P.PN ---
Subjective Progress Note Date: 08/13/24 Luz Marina Mallory is a 59-year-old female patient who presented to the ER with concerns of increased lower extremity swollen and weakness. Patient has a past medical history of pancreatic cancer. Additional medical history includes asthma, cancer, COPD, GERD, memory impairment, osteoarthritis anxiety and depression. Chest x-ray completed in ER showing new small left pleural effusion. Venous Doppler completed showing negative for DVT. Current vital signs temp 97.8, heart rate 80, respiratory rate 16, blood pressure 1 104/75 with pulse ox 98% on room air. Lab work completed showing influenza RSV and COVID-19 negative. Troponin negative. BNP of 703 alkaline phosphatase 377, ALT 42, AST 56 and total bili 1.5 potassium low at 3.3 will replace per protocol, hemoglobin 10.9 and white blood cells 5.70. At this time patient will be admitted oncology services consulted repeat chest x-ray ordered. On 08/10/2024 patient was seen and examined on the medical floor she is alert and oriented x 3 in no apparent distress she is still complaining of shortness of breath with activity and complaining of lower extremity edema vital exam reveals a temperature of 97.4 pulse 52 respiration 20 blood pressure 109/77 pulse ox 97% on room air white blood count 4.92 hemoglobin 10.7 platelet count 206 BUN 13 creatinine 0.71 albumin is very low at 1.7 at this time will add protein supplement and IV Lasix awaiting further recommendation from oncology On 08/11/2024 patient is alert and oriented x 3. Plans today for paracentesis per IR. Discussed case with oncology services cytology will be sent to assess for possible malignancy progression. potassium low at 3.2 orders placed for replace per protocol. Patient denies chest pain or shortness of breath. Patient denies nausea vomiting or diarrhea. Patient denies any urinary burning or frequency On 08/12/2024 patient is alert and oriented x 3 status post paracentesis 2.7 L removed sent for cytology. Current vital signs temp 97.9, heart rate 81, respiratory rate 17, blood pressure 108/77 with a pulse ox of 97% on room air. Patient denies chest pain or shortness of breath. Patient denies nausea vomiting or diarrhea. Patient denies any urinary burning or frequency On 08/13/2024 patient was seen and examined on the medical floor she is alert and oriented x 3 in no apparent distress, had episodes of vomiting, otherwise she denies any complaint, there is no fever or chills no headache or dizziness no chest pain, shortness of breath no cough no abdominal pain no diarrhea no urinary symptoms. Patient remains significantly low, nutrition consult was added, patient is maintained on protein supplement. PT OT consult added. Objective - Vital Signs Vital signs: Vital Signs Temp 98.0 F 08/13/24 07:20 Pulse 105 H 08/13/24 07:20 Resp 16 08/13/24 07:20 BP 106/76 08/13/24 07:20 Pulse Ox 98 08/13/24 07:20 FiO2 Intake & Output 08/12/24 08/13/24 08/13/24 18:59 06:59 18:59 Other: Voiding Method Bedside Commode Bedside Commode # Voids 1 3 - Exam In general patient is alert and oriented Ã-3 in no distress HEENT head normocephalic and atraumatic Neck is supple no JVD no goiter no lymphadenopathy no carotid bruit Chest examination is clear to auscultation no crackles no wheezing Cardiac exam reveals regular heart sounds S1 and S2 no gallops no murmurs Abdomen is soft nontender no organomegaly with normal bowel sounds Extremity exam reveals 2 + edema no cyanosis or clubbing Neurological examination reveals no gross focal deficits - Labs CBC & Chem 7: 08/13/24 04:24 08/13/24 04:32 Labs: Abnormal Lab Results - Last 24 Hours (Table) 08/12/24 Range/Units 06:50 Sodium 147 H (135-145) mmol/L Chloride 113 H (96-109) mmol/L Calcium 7.2 L (8.7-10.3) mg/dL Total Bilirubin 1.3 H (0.3-1.2) mg/dL AST 50 H (13-35) U/L ALT 46 H (8-44) U/L Alkaline Phosphatase 402 H (41-126) U/L Total Protein 4.5 L (6.2-8.2) g/dL Albumin 1.8 L (3.8-4.9) g/dL Albumin/Globulin Ratio 0.67 L (1.60-3.17) Ratio Microbiology - Last 24 Hours (Table) 08/12/24 10:30 Gram Stain - Preliminary Ascites Fluid Assessment and Plan Assessment: 1. Increased lower extremity weakness and swelling 2. History of pancreatic cancer 3. History of COPD 4. History of obstructive sleep apnea 5. History of osteoarthritis 6. History of depression and anxiety 7. History of essential hypertension 8. History of hyperlipidemia DVT prophylaxis Lovenox. GI prophylaxis Protonix Oncology services consulted PT OT services consulted Status post paracentesis on 08/12/2024
[2024-08-13 14:05] VITALS: BMI 22.6
[2024-08-13] MEDS: POTASSIUM CHLORIDE ER 20 MEQ TAB.ER PO SCH (17:55)
[2024-08-14 07:28] LABS: Basophils # (A) 0.04 10*3/uL (0.00-0.10); Basophils % (A) 0.6 %; Eosinophils # (A) 0.14 10*3/uL (0.04-0.35); Eosinophils % (A) 2.1 %; HCT 28.6 % (37.2-46.3); HGB 9.5 g/dL (12.0-15.0); Lymphocytes # (A) 0.84 10*3/uL (0.90-5.00); Lymphocytes % (A) 12.4 %; MCH 27.9 pg (27.0-32.0); MCHC 33.2 g/dL (32.0-37.0); MCV 83.9 fL (80.0-97.0); Mean Platelet Volume 9.8 fL (9.5-12.2); Monocytes # (A) 0.54 10*3/uL (0.20-1.00); Neutrophils # (A) 5.16 10*3/uL (1.80-7.70); Neutrophils % (A) 76.5 %; Platelet Count 181 10*3/uL (140-440); RBC 3.41 10*6/uL (4.10-5.20); WBC 6.75 10*3/uL (4.50-10.00)
[2024-08-14 07:34] LABS: ALT 35 U/L (4-34); AST 45 U/L (14-36); African American GFR (CKD) >90 (>60 ml/min/1.73 sqM); Albumin 1.5 g/dL (3.5-5.0); Albumin/Globulin Ratio 0.5; Alkaline Phosphatase 408 U/L (38-126); Anion Gap 3 mmol/L; Blood Urea Nitrogen 11 mg/dL (7-17); Calcium 7.2 mg/dL (8.4-10.2); Carbon Dioxide 25 mmol/L (22-30); Chloride 102 mmol/L (98-107); Globulin 2.9 g/dL; Glucose 97 mg/dL (74-99); Non-African American GFR(CKD) >90 (>60 ml/min/1.73 sqM); Potassium 3.9 mmol/L (3.5-5.1); Sodium 130 mmol/L (137-145); Total Bilirubin 1.6 mg/dL (0.2-1.3); Total Protein 4.4 g/dL (6.3-8.2)
[2024-08-14] MEDS: FUROSEMIDE 40 MG TAB PO SCH (08:16)
--- NOTE | 2024-08-14 09:49 | P.PN ---
Subjective Progress Note Date: 08/14/24 Luz Marina Mallory is a 59-year-old female patient who presented to the ER with concerns of increased lower extremity swollen and weakness. Patient has a past medical history of pancreatic cancer. Additional medical history includes asthma, cancer, COPD, GERD, memory impairment, osteoarthritis anxiety and depression. Chest x-ray completed in ER showing new small left pleural effusion. Venous Doppler completed showing negative for DVT. Current vital signs temp 97.8, heart rate 80, respiratory rate 16, blood pressure 1 104/75 with pulse ox 98% on room air. Lab work completed showing influenza RSV and COVID-19 negative. Troponin negative. BNP of 703 alkaline phosphatase 377, ALT 42, AST 56 and total bili 1.5 potassium low at 3.3 will replace per protocol, hemoglobin 10.9 and white blood cells 5.70. At this time patient will be admitted oncology services consulted repeat chest x-ray ordered. On 08/10/2024 patient was seen and examined on the medical floor she is alert and oriented x 3 in no apparent distress she is still complaining of shortness of breath with activity and complaining of lower extremity edema vital exam reveals a temperature of 97.4 pulse 52 respiration 20 blood pressure 109/77 pulse ox 97% on room air white blood count 4.92 hemoglobin 10.7 platelet count 206 BUN 13 creatinine 0.71 albumin is very low at 1.7 at this time will add protein supplement and IV Lasix awaiting further recommendation from oncology On 08/11/2024 patient is alert and oriented x 3. Plans today for paracentesis per IR. Discussed case with oncology services cytology will be sent to assess for possible malignancy progression. potassium low at 3.2 orders placed for replace per protocol. Patient denies chest pain or shortness of breath. Patient denies nausea vomiting or diarrhea. Patient denies any urinary burning or frequency On 08/12/2024 patient is alert and oriented x 3 status post paracentesis 2.7 L removed sent for cytology. Current vital signs temp 97.9, heart rate 81, respiratory rate 17, blood pressure 108/77 with a pulse ox of 97% on room air. Patient denies chest pain or shortness of breath. Patient denies nausea vomiting or diarrhea. Patient denies any urinary burning or frequency On 08/13/2024 patient was seen and examined on the medical floor she is alert and oriented x 3 in no apparent distress, had episodes of vomiting, otherwise she denies any complaint, there is no fever or chills no headache or dizziness no chest pain, shortness of breath no cough no abdominal pain no diarrhea no urinary symptoms. Patient remains significantly low, nutrition consult was added, patient is maintained on protein supplement. PT OT consult added. On 08/14/2024 patient is alert and oriented x 3. Patient reports improvement in overall weakness and symptoms. Patient denies any nausea or vomiting. Patient denies chest pain or shortness of breath. Patient denies any urinary burning or frequency PT OT services consulted awaiting further input likely tomorrow. Current vital signs temp 98.1, heart rate 90, respiratory rate 16, blood pressure 107/78 with a pulse ox of 96% on room air Objective - Vital Signs Vital signs: Vital Signs Temp 98.1 F 08/14/24 07:40 Pulse 90 08/14/24 07:40 Resp 16 08/14/24 07:40 BP 107/78 08/14/24 07:40 Pulse Ox 96 08/14/24 07:40 FiO2 Intake & Output 08/13/24 08/14/24 08/14/24 18:59 06:59 18:59 Intake Total 1678 480 Output Total 1200 300 Balance 478 -300 480 Weight 45.813 kg Intake: Oral 1678 480 Output: Urine 1200 300 Other: Voiding Method Bedside Commode Bedside Commode # Bowel Movements 2 - Exam In general patient is alert and oriented Ã-3 in no distress HEENT head normocephalic and atraumatic Neck is supple no JVD no goiter no lymphadenopathy no carotid bruit Chest examination is clear to auscultation no crackles no wheezing Cardiac exam reveals regular heart sounds S1 and S2 no gallops no murmurs Abdomen is soft nontender no organomegaly with normal bowel sounds Extremity exam reveals 2 + edema no cyanosis or clubbing Neurological examination reveals no gross focal deficits - Labs CBC & Chem 7: 08/14/24 06:34 08/14/24 05:33 Labs: Abnormal Lab Results - Last 24 Hours (Table) 08/13/24 08/13/24 08/14/24 Range/Units 04:24 04:32 05:33 RBC 3.54 L (4.10-5.20) X 10*6/uL Hgb 9.7 L (12.0-15.0) g/dL Hct 30.2 L (37.2-46.3) % RDW 18.0 H (11.5-14.5) % Lymphocytes # 0.79 L (0.90-5.00) X 10*3/uL Sodium 130 L (137-145) mmol/L Potassium 3.4 L (3.5-5.5) mmol/L Glucose 129 H (70-110) mg/dL Calcium 7.0 L 7.2 L (8.7-10.3) mg/dL Total Bilirubin 1.5 H 1.6 H (0.3-1.2) mg/dL AST 45 H 45 H (13-35) U/L ALT 45 H 35 H (8-44) U/L Alkaline Phosphatase 400 H 408 H (41-126) U/L Total Protein 4.2 L 4.4 L (6.2-8.2) g/dL Albumin 1.6 L 1.5 L (3.8-4.9) g/dL Albumin/Globulin Ratio 0.62 L (1.60-3.17) Ratio 08/14/24 Range/Units 06:34 RBC 3.41 L (4.10-5.20) X 10*6/uL Hgb 9.5 L (12.0-15.0) g/dL Hct 28.6 L (37.2-46.3) % RDW 18.0 H (11.5-14.5) % Lymphocytes # 0.84 L (0.90-5.00) X 10*3/uL Sodium (137-145) mmol/L Potassium (3.5-5.5) mmol/L Glucose (70-110) mg/dL Calcium (8.7-10.3) mg/dL Total Bilirubin (0.3-1.2) mg/dL AST (13-35) U/L ALT (8-44) U/L Alkaline Phosphatase (41-126) U/L Total Protein (6.2-8.2) g/dL Albumin (3.8-4.9) g/dL Albumin/Globulin Ratio (1.60-3.17) Ratio Microbiology - Last 24 Hours (Table) 08/12/24 10:30 Gram Stain - Preliminary Ascites Fluid Body Fluid Culture - Preliminary Assessment and Plan Assessment: 1. Increased lower extremity weakness and swelling 2. History of pancreatic cancer 3. History of COPD 4. History of obstructive sleep apnea 5. History of osteoarthritis 6. History of depression and anxiety 7. History of essential hypertension 8. History of hyperlipidemia DVT prophylaxis Lovenox. GI prophylaxis Protonix Oncology services consulted PT OT services consulted Status post paracentesis on 08/12/2024
--- NOTE | 2024-08-15 14:05 | P.PN ---
Subjective Progress Note Date: 08/15/24 Patient reports n/v this morning. C/o generalized weakness and persisting BLE edema. Objective - Vital Signs Vital signs: Vital Signs Temp 97.9 F 08/15/24 08:00 Pulse 73 08/15/24 08:00 Resp 16 08/15/24 08:00 BP 104/74 08/15/24 08:00 Pulse Ox 99 08/15/24 11:10 FiO2 Intake & Output 08/14/24 08/15/24 08/15/24 18:59 06:59 18:59 Intake Total 2280 540 Balance 2280 540 Intake: Oral 2280 540 Other: Voiding Method Bedside Commode Bedside Commode Bedside Commode # Voids 4 1 2 # Bowel Movements 0 - Constitutional General appearance: Present: no acute distress - EENT Eyes: Present: anicteric sclerae, EOMI ENT: Present: hearing grossly normal - Respiratory Details: breathing is even and unlabored - Cardiovascular Details: skin warm and dry - Gastrointestinal General gastrointestinal: Present: soft. Absent: tenderness - Integumentary Integumentary: Absent: cyanotic, jaundiced - Musculoskeletal Musculoskeletal: Present: generalized weakness - Psychiatric Psychiatric: Present: A&O x's 3 - Labs CBC & Chem 7: 08/14/24 06:34 08/14/24 05:33 Labs: Microbiology - Last 24 Hours (Table) 08/12/24 10:30 Gram Stain - Preliminary Ascites Fluid Body Fluid Culture - Preliminary 08/12/24 10:30 Anaerobic Culture - Preliminary Ascites Fluid Assessment and Plan (1) Bilateral leg edema Current Visit: Yes Status: Acute Priority: High Code(s): R60.0 - LOCALIZED EDEMA SNOMED Code(s): 717625581 (2) Primary pancreatic adenocarcinoma Current Visit: No Status: Acute Priority: High Code(s): C25.9 - MALIGNANT NEOPLASM OF PANCREAS, UNSPECIFIED SNOMED Code(s): 1269728429736 Plan: BLE edema, weakness: Presented to the emergency room for bilateral lower leg and feet swelling with difficulties ambulating. -Upon admit chest x-ray showed new small left pleural effusion. -BNP 703. Continues lasix daily -CTA chest negative for PE. Small right pleural effusion and moderate left pleural effusion -May be component of third spacing due to hypoalbuminemia -PT consulted -Pt remains very weak. But RN states she was able to ambulate in her room today with walker and PT assistance -Continue to monitor Pancreatic cancer: -Oncology history as dictated in the HPI -Most recently pt completed completed 4 cycles of gemzar/abraxane and XRT. The patient then had stent placement for gastric outlet or duodenal obstruction. -CT scans from 05/16 done at [facility] had showed no evidence of cancer recurrence. She was scheduled for repeat scans at [facility] later this month. -Hyperbilirubinemia and transaminitis noted. -Repeat CA 19-9 elevated at 238, from 117 on 06/22/24 -CTA chest noted marked ascites in upper abdomen. -CT AP revealed moderate diffuse abdominal ascites. Otherwise overall no significant interval changes from recent CT abdomen pelvis. With persistent soft tissue encasement of the celiac artery and common hepatic artery with ill- defined soft tissue stranding near the region of the pancreas head. CBD stent in place. -S/p paracentesis with 2.7L removed. Cultures negative thus far. Cytology pending
--- NOTE | 2024-08-15 16:29 | P.PN ---
Subjective Progress Note Date: 08/15/24 Luz Marina Mallory is a 59-year-old female patient who presented to the ER with concerns of increased lower extremity swollen and weakness. Patient has a past medical history of pancreatic cancer. Additional medical history includes asthma, cancer, COPD, GERD, memory impairment, osteoarthritis anxiety and depression. Chest x-ray completed in ER showing new small left pleural effusion. Venous Doppler completed showing negative for DVT. Current vital signs temp 97.8, heart rate 80, respiratory rate 16, blood pressure 1 104/75 with pulse ox 98% on room air. Lab work completed showing influenza RSV and COVID-19 negative. Troponin negative. BNP of 703 alkaline phosphatase 377, ALT 42, AST 56 and total bili 1.5 potassium low at 3.3 will replace per protocol, hemoglobin 10.9 and white blood cells 5.70. At this time patient will be admitted oncology services consulted repeat chest x-ray ordered. On 08/10/2024 patient was seen and examined on the medical floor she is alert and oriented x 3 in no apparent distress she is still complaining of shortness of breath with activity and complaining of lower extremity edema vital exam reveals a temperature of 97.4 pulse 52 respiration 20 blood pressure 109/77 pulse ox 97% on room air white blood count 4.92 hemoglobin 10.7 platelet count 206 BUN 13 creatinine 0.71 albumin is very low at 1.7 at this time will add protein supplement and IV Lasix awaiting further recommendation from oncology On 08/11/2024 patient is alert and oriented x 3. Plans today for paracentesis per IR. Discussed case with oncology services cytology will be sent to assess for possible malignancy progression. potassium low at 3.2 orders placed for replace per protocol. Patient denies chest pain or shortness of breath. Patient denies nausea vomiting or diarrhea. Patient denies any urinary burning or frequency On 08/12/2024 patient is alert and oriented x 3 status post paracentesis 2.7 L removed sent for cytology. Current vital signs temp 97.9, heart rate 81, respiratory rate 17, blood pressure 108/77 with a pulse ox of 97% on room air. Patient denies chest pain or shortness of breath. Patient denies nausea vomiting or diarrhea. Patient denies any urinary burning or frequency On 08/13/2024 patient was seen and examined on the medical floor she is alert and oriented x 3 in no apparent distress, had episodes of vomiting, otherwise she denies any complaint, there is no fever or chills no headache or dizziness no chest pain, shortness of breath no cough no abdominal pain no diarrhea no urinary symptoms. Patient remains significantly low, nutrition consult was added, patient is maintained on protein supplement. PT OT consult added. On 08/14/2024 patient is alert and oriented x 3. Patient reports improvement in overall weakness and symptoms. Patient denies any nausea or vomiting. Patient denies chest pain or shortness of breath. Patient denies any urinary burning or frequency PT OT services consulted awaiting further input likely tomorrow. Current vital signs temp 98.1, heart rate 90, respiratory rate 16, blood pressure 107/78 with a pulse ox of 96% on room air On 08/15/2024 patient was seen and examined on the medical floor she is alert and oriented x 3 in no apparent distress there is no fever or chills no headache or dizziness no chest pain no shortness of breath no cough no nausea or vomiting no abdominal pain no diarrhea and no urinary symptoms. She is still complaining of severe weakness and gait disturbance, she is refusing to go to any rehab at any detention, apparently because she is afraid that she is going to stay there forever, she was agreeable to go to [facility] for inpatient rehab if possible, consultation for IPR was initiated. Objective - Vital Signs Vital signs: Vital Signs Temp 97.9 F 08/15/24 08:00 Pulse 105 H 08/15/24 08:00 Resp 16 08/15/24 08:00 BP 104/74 08/15/24 08:00 Pulse Ox 97 08/15/24 08:00 FiO2 Intake & Output 08/14/24 08/15/24 08/15/24 18:59 06:59 18:59 Intake Total 2280 540 Balance 2280 540 Intake: Oral 2280 540 Other: Voiding Method Bedside Commode Bedside Commode # Voids 4 1 # Bowel Movements 0 - Exam In general patient is alert and oriented Ã-3 in no distress HEENT head normocephalic and atraumatic Neck is supple no JVD no goiter no lymphadenopathy no carotid bruit Chest examination is clear to auscultation no crackles no wheezing Cardiac exam reveals regular heart sounds S1 and S2 no gallops no murmurs Abdomen is soft nontender no organomegaly with normal bowel sounds Extremity exam reveals 2 + edema no cyanosis or clubbing Neurological examination reveals no gross focal deficits - Labs CBC & Chem 7: 08/14/24 06:34 08/14/24 05:33 Labs: Microbiology - Last 24 Hours (Table) 08/12/24 10:30 Gram Stain - Preliminary Ascites Fluid Body Fluid Culture - Preliminary 08/12/24 10:30 Anaerobic Culture - Preliminary Ascites Fluid Assessment and Plan Assessment: 1. Increased lower extremity weakness and swelling 2. History of pancreatic cancer 3. History of COPD 4. History of obstructive sleep apnea 5. History of osteoarthritis 6. History of depression and anxiety 7. History of essential hypertension 8. History of hyperlipidemia DVT prophylaxis Lovenox. GI prophylaxis Protonix Oncology services consulted PT OT services consulted Status post paracentesis on 08/12/2024
--- NOTE | 2024-08-15 16:49 | CDI ---
Date: 08/15/2024 From: [email or web address] [email or web address] Email: [email or web address] Admit Date: 08/08/2024 05:32:00 PM Patient Name: Luz Marina Mallory Visit Number: [id number] Discharge Date: N/A ATTENTION: The Clinical Documentation Specialists (CDI) and [facility] Coding Staff appreciate your assistance in clarifying documentation. Please respond to the clarification below the line at the bottom and electronically sign. The CDI & [facility] Coding staff will review the response and follow-up if needed. Please note: Queries are made part of the Legal Health Record. If you have any questions, please contact the author of this message via ITS. Dr. Michael Leal, The Registered Dietitian assessment on 08/13/2024 indicates this patient meets criteria for Malnutrition. Chronic, severe. Based on this information and the findings below, is there an additional diagnosis that is clinically appropriate for this patient? History/Risk Factors: 59-year-old female presented to [facility] ED for evaluation due to weakness and increased lower extremity swelling. PMH: Pancreatic cancer, former smoker, asthma, chronic obstructive pulmonary disease, GERD, memory impairment, osteoarthritis, anxiety, depression, hypertension, hyperlipidemia, obstructive sleep apnea Clinical indicators: Documentation Location: Electronic Medical Record Current BMI: 22.6 Registered Dietitian Assessment (08/13/2024): o Malnutrition. Chronic, severe o Related to pancreatic cancer causing increased nutrient needs o As evidenced by severe lower extremity edema, severe clavicle region muscle loss o Physical Appearance: Underweight o Nutrition Intake: Fair. Percent Consumed: 50-75%. 51% of meals x 5 days Treatment: Registered Dietitian Consultation Oral Nutrition Supplement(s): Ensure Compact TID Is there an additional diagnosis that is clinically appropriate for this patient? [ xxx ] Severe protein-calorie malnutrition [ ] No additional diagnosis/Not clinically significant [ ] Other condition, please specify [ ] Unable to Determine MTDD
--- NOTE | 2024-08-16 06:25 | CT ---
EXAM: CT Head Without Intravenous Contrast CLINICAL HISTORY: Pt found on floor, states she hit back of head TECHNIQUE: Axial computed tomography images of the head/brain without intravenous contrast. Coronal and sagittal reconstructions are performed. CTDI is 49.1 mGy and DLP is 1125.4 mGy-cm. This CT exam was performed using one or more of the following dose reduction techniques: automated exposure control, adjustment of the mA and/or kV according to patient size, and/or use of iterative reconstruction technique. COMPARISON: Brain MRI from 04/30/2024 FINDINGS: Brain: Age-related generalized brain volume loss and chronic small vessel ischemic changes. No hemorrhage. Ventricles: Unremarkable. No ventriculomegaly. Bones/joints: No acute findings. Soft tissues: Unremarkable. Sinuses: Unremarkable as visualized. No acute sinusitis. Mastoid air cells: Unremarkable as visualized. No mastoid effusion. IMPRESSION: No acute findings in the head/brain.
[2024-08-16 07:30] LABS: ALT 44 U/L (4-34); AST 50 U/L (14-36); African American GFR (CKD) 89 (>60 ml/min/1.73 sqM); Albumin 1.6 g/dL (3.5-5.0); Albumin/Globulin Ratio 0.5; Alkaline Phosphatase 460 U/L (38-126); Anion Gap 3 mmol/L; Blood Urea Nitrogen 13 mg/dL (7-17); Calcium 7.3 mg/dL (8.4-10.2); Carbon Dioxide 25 mmol/L (22-30); Chloride 100 mmol/L (98-107); Glucose 85 mg/dL (74-99); Non-African American GFR(CKD) 78 (>60 ml/min/1.73 sqM); Potassium 3.4 mmol/L (3.5-5.1); Sodium 128 mmol/L (137-145); Total Protein 4.6 g/dL (6.3-8.2)
[2024-08-16 07:52] LABS: Basophils # (A) 0.04 10*3/uL (0.00-0.10); Basophils % (A) 0.6 %; Eosinophils # (A) 0.15 10*3/uL (0.04-0.35); Eosinophils % (A) 2.1 %; HCT 27.7 % (37.2-46.3); HGB 9.3 g/dL (12.0-15.0); Lymphocytes % (A) 11.2 %; MCH 28.1 pg (27.0-32.0); MCHC 33.6 g/dL (32.0-37.0); MCV 83.7 fL (80.0-97.0); Mean Platelet Volume 9.7 fL (9.5-12.2); Monocytes # (A) 0.52 10*3/uL (0.20-1.00); Monocytes % (A) 7.3 %; Neutrophils # (A) 5.58 10*3/uL (1.80-7.70); Neutrophils % (A) 78.1 %; Platelet Count 198 10*3/uL (140-440); RBC 3.31 10*6/uL (4.10-5.20); RDW 17.3 % (11.5-14.5); WBC 7.14 10*3/uL (4.50-10.00)
--- NOTE | 2024-08-16 11:52 | P.CONS ---
History of Present Illness - Reason for Consult Consult date: 08/16/24 Rehab Recommendations - Chief Complaint Weakness - History of Present Illness Luz Marina Mallory is a single female, who lives in an apartment, 0 ROSA. Prior to admission, she was ambulating with a 4WW. 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 Current driving: no. Support system: has 1 friend in the area, has a sister. States she will be st ar[facility] [employer] [facility] August 23. She presented to [facility] on 08/08/24. She presented to the ED c/o increased lower extremity swelling and weakness. Per record review, chest x-ray completed in ER showing new small left pleural effusion. Venous Doppler completed showing negative for DVT. Current vital signs temp 97.8, heart rate 80, respiratory rate 16, blood pressure 104/75 with pulse ox 98% on room air. Lab work completed showing influenza RSV and COVID-19 negative. Troponin negative. BNP of 703, alkaline phosphatase 377, ALT 42, AST 56 and total bili 1.5 potassium low at 3.3, hemoglobin 10.9 and white blood cells 5.70. At this time patient will be admitted oncology services consulted due to history of pancreatic cancer, repeat chest x-ray was ordered. On 08/12/2024 patient had paracentesis per IR, 2.7 L removed. Per records, cytology was sent to assess for possible malignancy progression. PM&R consulted for rehab recommendations. Therapy evaluations reviewed; patient needing LB dress Lexi, toilet transfer Lexi, BM Lexi, gait 10 ft Lexi with rolling walker. 08/16: Patient reports she is doing ok, feels week and 'wobbly' when working with therapy. Per staff, patient had a fall this morning. Patient denies current complaints, denies complaints with bowels and bladder. Reports she was diagnosed with pancreatic cancer about 1 year ago, had treatment previously, no current treatment plans, was supposed to follow up today with her oncologist, but is unable due to being in the hospital. Review of Systems As above in subjective. Past Medical History Past Medical History: Asthma, Cancer, COPD, GERD/Reflux, Memory Impairment, Musculoskeletal Disorder, Osteoarthritis (OA), Sleep Apnea/CPAP/BIPAP Additional Past Medical History / Comment(s): PT STATES SOME MEMORY PROBLEMS AND LEARNING DISABILITY, HAS FRIEND WHO HELPS HER WITH MEDICATIONS AND APPTS., STATES MUSCLE SPASMS, BACK PROBLEMS WITH DISC DISEASE, ANEMIA, URINARY URGENCY, PROBLEMS WITH DIARRHEA & CONSTIPATION.Pancreatic CA diagnosed August 2022, started chemo on 11/03/22 History of Any Multi-Drug Resistant Organisms: None Reported Past Surgical History: Section, Cholecystectomy, Hysterectomy Additional Past Surgical History / Comment(s): 2 C-SECTIONS, PARTIAL HYSTERECTOMY, BERNADETTE REMOVED. States she had a stent after "yellow jaundice" due to a blockage, done Bruce Valentine, COLONOSCOPY, EGD Past Anesthesia/Blood Transfusion Reactions: Motion Sickness Additional Past Anesthesia/Blood Transfusion Reaction / Comm: STATES DIFFICULTY WAKING UP AFTER ANESTHESIA, has had two blood transfusion without incident Past Psychological History: Anxiety, Depression Smoking Status: Former smoker Past Alcohol Use History: None Reported Past Drug Use History: None Reported - Past Family History Mother Family Medical History: Cancer Additional Family Medical History / Comment(s): LUNG AND BRAIN CA Medications and Allergies Home Medications Medication Instructions Recorded Confirmed Type DULoxetine HCL [Cymbalta] 60 mg PO DAILY 11/03/22 08/08/24 History Ferrous Sulfate [Iron] 325 mg PO BID-W/MEALS 11/03/22 08/08/24 History Midodrine HCl 5 mg PO TID PRN 11/03/22 08/08/24 History Potassium Chloride ER [K-Dur 20] 20 meq PO DAILY 11/03/22 08/08/24 History Famotidine [Pepcid] 40 mg PO DAILY 11/28/22 08/08/24 History lamoTRIgine [LaMICtal] 75 mg PO HS 11/28/22 08/08/24 History Gabapentin 300 mg PO TID 05/29/23 08/08/24 History Pantoprazole [Protonix] 40 mg PO BID 06/04/23 08/08/24 History traMADol HCL 50 mg PO Q6H PRN 09/14/23 08/08/24 History Levothyroxine Sodium [Synthroid] 25 mcg PO DAILY 08/08/24 08/08/24 History Loperamide [Imodium] 4 mg PO QID PRN 08/08/24 08/08/24 History OLANZapine [ZyPREXA] 2.5 mg PO HS 08/08/24 08/08/24 History Ondansetron Odt [Zofran Odt] 4 mg PO BID PRN 08/08/24 08/08/24 History Simethicone [Mylanta Gas Minis] 125 mg PO BID 08/08/24 08/08/24 History Vitamin D3(Unknown Dose) 1 tab PO DAILY 08/08/24 History Allergies Allergy/AdvReac Type Severity Reaction Status Date / Time No Known Allergies Allergy Verified 08/08/24 17:09 Physical Exam Vitals: Vital Signs Temp Pulse Resp BP Pulse Ox 08/16/24 08:00 97.6 F 95 12 108/76 95 08/16/24 04:17 97.9 F 94 14 122/88 97 08/16/24 01:44 97.9 F 94 14 100/71 97 08/15/24 20:00 98.3 F 110 H 12 110/75 98 08/15/24 13:11 98 F 115 H 16 103/73 97 08/15/24 11:10 99 Intake and Output 08/15/24 08/16/24 08/16/24 22:59 06:59 14:59 Intake Total 540 Balance 540 Intake: Oral 540 Other: Voiding Method Bedside Commode Bedside Commode # Voids 0 1 # Bowel Movements 0 General: WDWN, female, NAD Head: Normocephalic, atraumatic. Eyes: Symmetric Ears: Symmetric. Hearing within normal limits. Mouth: Clear. Cardiac: no acute distress. Calves supple, non tender, + BLLE edema Lungs: Breathing comfortably on RA. Chest symmetric. Abdomen: Soft, nontender. Extremities: Arthritic changes consistent with age. Neurological: Alert and oriented x 4. Speech is clear and fluent without paraphasic errors Cranial nerves: CN II-XII: grossly intact. Sensation: Intact and symmetrical limbs. Musculoskeletal: ROM WFL EXCEPT: generalized weakness MMT UE Sh Abd EE EF FABD WE HG Right 4 4 4 4 4 4 Left 4 4 4 4 4 4 MMT LE HF KE DF EHL Right 4 4 4 4 Left 4 4 4 4 Skin: Skin intact where visible to head, neck, and bilateral upper and lower extremities Psych: Calm, cooperative Results CBC & Chem 7: 08/16/24 06:50 08/16/24 06:50 Labs: Abnormal Lab Results - Last 24 Hours (Table) 08/16/24 08/16/24 Range/Units 06:50 06:50 RBC 3.31 L (4.10-5.20) 10*6/uL Hgb 9.3 L (12.0-15.0) g/dL Hct 27.7 L (37.2-46.3) % RDW 17.3 H (11.5-14.5) % Immature Gran # 0.05 H (0.00-0.04) 10*3/uL Lymphocytes # 0.80 L (0.90-5.00) 10*3/uL Sodium 128 L (137-145) mmol/L Potassium 3.4 L (3.5-5.1) mmol/L Calcium 7.3 L (8.4-10.2) mg/dL Total Bilirubin 2.0 H (0.2-1.3) mg/dL AST 50 H (14-36) U/L ALT 44 H (4-34) U/L Alkaline Phosphatase 460 H (38-126) U/L Total Protein 4.6 L (6.3-8.2) g/dL Albumin 1.6 L (3.5-5.0) g/dL Microbiology - Last 24 Hours (Table) 08/12/24 10:30 Gram Stain - Final Ascites Fluid Body Fluid Culture - Final Assessment and Plan Assessment: #Debility 2' pancreatic cancer -therapies #Increased lower extremity weakness and edema #S/P Paracentesis 08/12/24 with 2.7 L removed #Hx anxiety/depression -cymbalta, lamictal, zyprexa per APR # Bowel/ Bladder: Nursing to monitor and report concerns if any. # Diet - soft diet per EMR # Skin/wound: Skin/Wound care to follow as needed # Pain Management -cymbalta, neurontin, dilaudid IV prn, tramadol prn per APR # DVT Prophylaxis: Defer to Ortho/IM management. -Lovenonx SQ per APR # Comorbidities: HTN, HLD, asthma, cancer, COPD, SANDY, GERD, memory impairment, o steoarthritis, anxiety and depression. # Your medical dx and mgt Goals: Modified Independent mobility and ADLS both basic and advanced; increased functional mobility/strength; increased balance, safety, endurance. Improvement in medical issues through your care. Barriers: fall risk, weakness, endurance, cognition Discharge recommendation: Patient is performing below baseline level of function. Patient is more appropriate for a slower paced rehab program such as [facility] for continued rehab. Patient seen and examined in collaboration with Dr. Chaparro Thank you for consulting our services.
[2024-08-16] MEDS ORDERED: Potassium Replacement Protocol 1 EACH MISC MISCELLANE PRN (12:51)
--- NOTE | 2024-08-16 12:52 | P.PN ---
Subjective Progress Note Date: 08/16/24 Luz Marina Mallory is a 59-year-old female patient who presented to the ER with concerns of increased lower extremity swollen and weakness. Patient has a past medical history of pancreatic cancer. Additional medical history includes asthma, cancer, COPD, GERD, memory impairment, osteoarthritis anxiety and depression. Chest x-ray completed in ER showing new small left pleural effusion. Venous Doppler completed showing negative for DVT. Current vital signs temp 97.8, heart rate 80, respiratory rate 16, blood pressure 1 104/75 with pulse ox 98% on room air. Lab work completed showing influenza RSV and COVID-19 negative. Troponin negative. BNP of 703 alkaline phosphatase 377, ALT 42, AST 56 and total bili 1.5 potassium low at 3.3 will replace per protocol, hemoglobin 10.9 and white blood cells 5.70. At this time patient will be admitted oncology services consulted repeat chest x-ray ordered. On 08/10/2024 patient was seen and examined on the medical floor she is alert and oriented x 3 in no apparent distress she is still complaining of shortness of breath with activity and complaining of lower extremity edema vital exam reveals a temperature of 97.4 pulse 52 respiration 20 blood pressure 109/77 pulse ox 97% on room air white blood count 4.92 hemoglobin 10.7 platelet count 206 BUN 13 creatinine 0.71 albumin is very low at 1.7 at this time will add protein supplement and IV Lasix awaiting further recommendation from oncology On 08/11/2024 patient is alert and oriented x 3. Plans today for paracentesis per IR. Discussed case with oncology services cytology will be sent to assess for possible malignancy progression. potassium low at 3.2 orders placed for replace per protocol. Patient denies chest pain or shortness of breath. Patient denies nausea vomiting or diarrhea. Patient denies any urinary burning or frequency On 08/12/2024 patient is alert and oriented x 3 status post paracentesis 2.7 L removed sent for cytology. Current vital signs temp 97.9, heart rate 81, respiratory rate 17, blood pressure 108/77 with a pulse ox of 97% on room air. Patient denies chest pain or shortness of breath. Patient denies nausea vomiting or diarrhea. Patient denies any urinary burning or frequency On 08/13/2024 patient was seen and examined on the medical floor she is alert and oriented x 3 in no apparent distress, had episodes of vomiting, otherwise she denies any complaint, there is no fever or chills no headache or dizziness no chest pain, shortness of breath no cough no abdominal pain no diarrhea no urinary symptoms. Patient remains significantly low, nutrition consult was added, patient is maintained on protein supplement. PT OT consult added. On 08/14/2024 patient is alert and oriented x 3. Patient reports improvement in overall weakness and symptoms. Patient denies any nausea or vomiting. Patient denies chest pain or shortness of breath. Patient denies any urinary burning or frequency PT OT services consulted awaiting further input likely tomorrow. Current vital signs temp 98.1, heart rate 90, respiratory rate 16, blood pressure 107/78 with a pulse ox of 96% on room air On 08/15/2024 patient was seen and examined on the medical floor she is alert and oriented x 3 in no apparent distress there is no fever or chills no headache or dizziness no chest pain no shortness of breath no cough no nausea or vomiting no abdominal pain no diarrhea and no urinary symptoms. She is still complaining of severe weakness and gait disturbance, she is refusing to go to any rehab at any [place] [facility] facility, apparently because she is afraid that she is going to stay there forever, she was agreeable to go to [facility] for inpatient rehab if possible, consultation for IPR was initiated. On 08/16/2024 patient is alert and oriented x 3. Patient had a fall this a.m. hitting the back of her head. Patient did have head CT that was negative. IPR consult placed for discharge planning. Social work services are following. Current vital signs temp 97.6, heart 95, respiratory rate 16, blood pressure 108/76 with pulse ox 95% on room air patient denies chest pain or shortness of breath. Patient denies nausea vomiting or diarrhea. Patient denies any urinary burning or frequency Objective - Vital Signs Vital signs: Vital Signs Temp 97.6 F 08/16/24 08:00 Pulse 95 08/16/24 08:00 Resp 12 08/16/24 08:00 BP 108/76 08/16/24 08:00 Pulse Ox 95 08/16/24 08:00 FiO2 Intake & Output 08/15/24 08/16/24 08/16/24 18:59 06:59 18:59 Intake Total 540 Balance 540 Intake: Oral 540 Other: Voiding Method Bedside Commode Bedside Commode Bedside Commode # Voids 1 1 # Bowel Movements 0 - Exam In general patient is alert and oriented Ã-3 in no distress HEENT head normocephalic and atraumatic Neck is supple no JVD no goiter no lymphadenopathy no carotid bruit Chest examination is clear to auscultation no crackles no wheezing Cardiac exam reveals regular heart sounds S1 and S2 no gallops no murmurs Abdomen is soft nontender no organomegaly with normal bowel sounds Extremity exam reveals 2 + edema no cyanosis or clubbing Neurological examination reveals no gross focal deficits - Labs CBC & Chem 7: 08/16/24 06:50 08/16/24 06:50 Labs: Abnormal Lab Results - Last 24 Hours (Table) 08/16/24 08/16/24 Range/Units 06:50 06:50 RBC 3.31 L (4.10-5.20) 10*6/uL Hgb 9.3 L (12.0-15.0) g/dL Hct 27.7 L (37.2-46.3) % RDW 17.3 H (11.5-14.5) % Immature Gran # 0.05 H (0.00-0.04) 10*3/uL Lymphocytes # 0.80 L (0.90-5.00) 10*3/uL Sodium 128 L (137-145) mmol/L Potassium 3.4 L (3.5-5.1) mmol/L Calcium 7.3 L (8.4-10.2) mg/dL Total Bilirubin 2.0 H (0.2-1.3) mg/dL AST 50 H (14-36) U/L ALT 44 H (4-34) U/L Alkaline Phosphatase 460 H (38-126) U/L Total Protein 4.6 L (6.3-8.2) g/dL Albumin 1.6 L (3.5-5.0) g/dL Microbiology - Last 24 Hours (Table) 08/12/24 10:30 Gram Stain - Final Ascites Fluid Body Fluid Culture - Final Assessment and Plan Assessment: 1. Increased lower extremity weakness and swelling 2. History of pancreatic cancer 3. History of COPD 4. History of obstructive sleep apnea 5. History of osteoarthritis 6. History of depression and anxiety 7. History of essential hypertension 8. History of hyperlipidemia 9. Fall. Head CT negative DVT prophylaxis Lovenox. GI prophylaxis Protonix Oncology services consulted PT OT services consulted Status post paracentesis on 08/12/2024
[2024-08-16] MEDS: POTASSIUM CHLORIDE ER 20 MEQ TAB.ER PO SCH (14:42)
--- NOTE | 2024-08-16 19:10 | P.PN ---
Subjective Progress Note Date: 08/16/24 Patient reports persisting generalized weakness. Had fall last night upon trying to get out of bed. She had head injury, denies LOC. CT brain negative for acute intracranial processes Objective - Vital Signs Vital signs: Vital Signs Temp 97.6 F 08/16/24 08:00 Pulse 95 08/16/24 08:00 Resp 12 08/16/24 08:00 BP 108/76 08/16/24 08:00 Pulse Ox 95 08/16/24 08:00 FiO2 Intake & Output 08/15/24 08/16/24 08/16/24 18:59 06:59 18:59 Intake Total 540 Balance 540 Intake: Oral 540 Other: Voiding Method Bedside Commode Bedside Commode Bedside Commode # Voids 1 1 # Bowel Movements 0 - Constitutional General appearance: Present: no acute distress - EENT Eyes: Present: anicteric sclerae, EOMI ENT: Present: hearing grossly normal - Respiratory Details: breathing is even and unlabored - Cardiovascular Details: skin warm and dry - Gastrointestinal General gastrointestinal: Present: soft. Absent: tenderness - Integumentary Integumentary: Absent: cyanotic, jaundiced - Musculoskeletal Musculoskeletal: Present: generalized weakness - Psychiatric Psychiatric: Present: A&O x's 3 - Labs CBC & Chem 7: 08/16/24 06:50 08/16/24 06:50 Labs: Abnormal Lab Results - Last 24 Hours (Table) 08/16/24 08/16/24 Range/Units 06:50 06:50 RBC 3.31 L (4.10-5.20) 10*6/uL Hgb 9.3 L (12.0-15.0) g/dL Hct 27.7 L (37.2-46.3) % RDW 17.3 H (11.5-14.5) % Immature Gran # 0.05 H (0.00-0.04) 10*3/uL Lymphocytes # 0.80 L (0.90-5.00) 10*3/uL Sodium 128 L (137-145) mmol/L Potassium 3.4 L (3.5-5.1) mmol/L Calcium 7.3 L (8.4-10.2) mg/dL Total Bilirubin 2.0 H (0.2-1.3) mg/dL AST 50 H (14-36) U/L ALT 44 H (4-34) U/L Alkaline Phosphatase 460 H (38-126) U/L Total Protein 4.6 L (6.3-8.2) g/dL Albumin 1.6 L (3.5-5.0) g/dL Microbiology - Last 24 Hours (Table) 08/12/24 10:30 Gram Stain - Final Ascites Fluid Body Fluid Culture - Final - Imaging and Cardiology CT Scan - head: report reviewed Assessment and Plan (1) Bilateral leg edema Current Visit: Yes Status: Acute Priority: High Code(s): R60.0 - LOCALIZED EDEMA SNOMED Code(s): 882918587 (2) Primary pancreatic adenocarcinoma Current Visit: No Status: Acute Priority: High Code(s): C25.9 - MALIGNANT NEOPLASM OF PANCREAS, UNSPECIFIED SNOMED Code(s): 3255316087982 Plan: BLE edema, weakness: Presented to the emergency room for bilateral lower leg and feet swelling with difficulties ambulating. -Upon admit chest x-ray showed new small left pleural effusion. -BNP 703. Continues lasix daily -CTA chest negative for PE. Small right pleural effusion and moderate left pleural effusion -May be component of third spacing due to hypoalbuminemia -PT consulted -Pt remains very weak. Had fall last night, with head injury, brain CT negative for acute intracranial processes -Will likely need rehab upon discharge. Pt has been evaluated by [facility], plan was to start with their service August 23, may be delayed if she requires SNF upon d/c. Rehab medicine consulted. Do not believe pt is a good candidate for inpt rehab. Pancreatic cancer: -Oncology history as dictated in the HPI -Most recently pt completed completed 4 cycles of gemzar/abraxane and XRT. The patient then had stent placement for gastric outlet or duodenal obstruction. -CT scans from 05/16 done at [facility] had showed no evidence of cancer recurrence. She was scheduled for repeat scans at [facility] later this month. -Hyperbilirubinemia and transaminitis noted. -Repeat CA 19-9 elevated at 238, from 117 on 06/22/24 -CTA chest noted marked ascites in upper abdomen. -CT AP revealed moderate diffuse abdominal ascites. Otherwise overall no signi ficant interval changes from recent CT abdomen pelvis. With persistent soft tissue encasement of the celiac artery and common hepatic artery with ill- defined soft tissue stranding near the region of the pancreas head. CBD stent in place. -S/p paracentesis with 2.7L removed. Cultures negative thus far. Cytology pending
[2024-08-17 08:17] LABS: AST 53 U/L (14-36); African American GFR (CKD) >90 (>60 ml/min/1.73 sqM); Albumin 1.7 g/dL (3.5-5.0); Albumin/Globulin Ratio 0.6; Alkaline Phosphatase 458 U/L (38-126); Anion Gap 3 mmol/L; Blood Urea Nitrogen 13 mg/dL (7-17); Calcium 7.4 mg/dL (8.4-10.2); Carbon Dioxide 24 mmol/L (22-30); Chloride 101 mmol/L (98-107); Glucose 82 mg/dL (74-99); Non-African American GFR(CKD) 86 (>60 ml/min/1.73 sqM); Sodium 128 mmol/L (137-145); Total Bilirubin 1.8 mg/dL (0.2-1.3); Total Protein 4.7 g/dL (6.3-8.2)
[2024-08-17 08:18] LABS: ALT 44 U/L (4-34)
[2024-08-17 10:19] LABS: HCT 29.7 % (37.2-46.3); HGB 9.7 g/dL (12.0-15.0); MCH 28.4 pg (27.0-32.0); MCHC 32.7 g/dL (32.0-37.0); MCV 86.8 FL (80.0-97.0); Mean Platelet Volume 9.9 FL (9.5-12.2); NRBC Per 100 WBC 0 X 10*3/uL (0.00-0.01); Platelet Count 217 X 10*3/uL (140-440); RBC 3.42 X 10*6/uL (4.10-5.20); RDW 17.6 % (11.5-14.5); WBC 5.69 X 10*3/uL (4.50-10.00)
[2024-08-17 10:20] LABS: Basophils # (A) 0.06 X 10*3/uL (0.00-0.10); Basophils % (A) 1.1 %; Eosinophils # (A) 0.21 X 10*3/uL (0.04-0.35); Eosinophils % (A) 3.7 %; Lymphocytes # (A) 0.92 X 10*3/uL (0.90-5.00); Lymphocytes % (A) 16.2 %; Monocytes # (A) 0.54 X 10*3/uL (0.20-1.00); Monocytes % (A) 9.5 %; Neutrophils # (A) 3.87 X 10*3/uL (1.80-7.70); Neutrophils % (A) 67.9 %
[2024-08-17 12:32] VITALS: BP 91/69; PULSE 94; RESP 20; TEMP 96.7
--- NOTE | 2024-08-17 13:01 | P.DS ---
Providers Date of admission: 08/08/24 17:32 Expected date of discharge: 08/17/24 Attending physician: Michael Leal Consults: 08/08/24 17:30 Consult Physician Routine Consulting Provider: Kali Murray Consult Reason/Comments: Pancreatic ca/ known Do you want consulting provider notified?: Yes 08/16/24 09:59 Consult Physician Routine Consulting Provider: Vee Chaparro Consult Reason/Comments: weakness Do you want consulting provider notified?: Yes Primary care physician: Michael Mel [facility] Course: Diagnosis on discharge: 1. Increased lower extremity weakness and swelling 2. History of pancreatic cancer 3. History of COPD 4. History of obstructive sleep apnea 5. History of osteoarthritis 6. History of depression and anxiety 7. History of essential hypertension 8. History of hyperlipidemia 9. Fall. Head CT negative Hospital course: Luz Marina Mallory is a 59-year-old female patient who presented to the ER with concerns of increased lower extremity swollen and weakness. Patient has a past medical history of pancreatic cancer. Additional medical history includes asthma, cancer, COPD, GERD, memory impairment, osteoarthritis anxiety and depression. Chest x-ray completed in ER showing new small left pleural effusion. Venous Doppler completed showing negative for DVT. Current vital s igns temp 97.8, heart rate 80, respiratory rate 16, blood pressure 1 104/75 with pulse ox 98% on room air. Lab work completed showing influenza RSV and COVID-19 negative. Troponin negative. BNP of 703 alkaline phosphatase 377, ALT 42, AST 56 and total bili 1.5 potassium low at 3.3 will replace per protocol, hemoglobin 10.9 and white blood cells 5.70. At this time patient will be admitted oncology services consulted repeat chest x-ray ordered. On 08/10/2024 patient was seen and examined on the medical floor she is alert and oriented x 3 in no apparent distress she is still complaining of shortness of breath with activity and complaining of lower extremity edema vital exam reveals a temperature of 97.4 pulse 52 respiration 20 blood pressure 109/77 pulse ox 97% on room air white blood count 4.92 hemoglobin 10.7 platelet count 206 BUN 13 creatinine 0.71 albumin is very low at 1.7 at this time will add protein supplement and IV Lasix awaiting further recommendation from oncology On 08/11/2024 patient is alert and oriented x 3. Plans today for paracentesis per IR. Discussed case with oncology services cytology will be sent to assess for possible malignancy progression. potassium low at 3.2 orders placed for replace per protocol. Patient denies chest pain or shortness of breath. Patient denies nausea vomiting or diarrhea. Patient denies any urinary burning or frequency On 08/12/2024 patient is alert and oriented x 3 status post paracentesis 2.7 L removed sent for cytology. Current vital signs temp 97.9, heart rate 81, respiratory rate 17, blood pressure 108/77 with a pulse ox of 97% on room air. Patient denies chest pain or shortness of breath. Patient denies nausea vomiting or diarrhea. Patient denies any urinary burning or frequency On 08/13/2024 patient was seen and examined on the medical floor she is alert and oriented x 3 in no apparent distress, had episodes of vomiting, otherwise she denies any complaint, there is no fever or chills no headache or dizziness no chest pain, shortness of breath no cough no abdominal pain no diarrhea no urinary symptoms. Patient remains significantly low, nutrition consult was added, patient is maintained on protein supplement. PT OT consult added. On 08/14/2024 patient is alert and oriented x 3. Patient reports improvement in overall weakness and symptoms. Patient denies any nausea or vomiting. Patient denies chest pain or shortness of breath. Patient denies any urinary burning or frequency PT OT services consulted awaiting further input likely tomorrow. Current vital signs temp 98.1, heart rate 90, respiratory rate 16, blood pressure 107/78 with a pulse ox of 96% on room air On 08/15/2024 patient was seen and examined on the medical floor she is alert and oriented x 3 in no apparent distress there is no fever or chills no headache or dizziness no chest pain no shortness of breath no cough no nausea or vomiting no abdominal pain no diarrhea and no urinary symptoms. She is still complaining of severe weakness and gait disturbance, she is refusing to go to any rehab at any halfway, apparently because she is afraid that she is going to stay there forever, she was agreeable to go to [facility] for inpatient rehab if possible, consultation for IPR was initiated. On 08/16/2024 patient is alert and oriented x 3. Patient had a fall this a.m. hitting the back of her head. Patient did have head CT that was negative. IPR consult placed for discharge planning. Social work services are following. Current vital signs temp 97.6, heart 95, respiratory rate 16, blood pressure 10 8/76 with pulse ox 95% on room air patient denies chest pain or shortness of breath. Patient denies nausea vomiting or diarrhea. Patient denies any urinary burning or frequency On 08/17/2024 Patient was seen and examined on the medical floor she is alert and oriented x 3 in no apparent distress there is no fever or chills no headache or dizziness no chest pain no shortness of breath no cough no nausea or vomiting no abdominal pain no diarrhea and no urinary symptoms. At this time patient will be discharged to home, she has refused adamantly to go to any halfway for rehab. At some point during this admission she was agreeable to go to [facility] for inpatient rehab, she was evaluated by [facility] physician, and did not qualify for the program. Patient refused again today to go to a halfway, we will discharge patient to home with home care, she will be followed in our office and by oncology in the next 1 to 2 weeks. Patient Condition at Discharge: Fair Plan - Discharge Summary New Discharge Prescriptions: New Furosemide [Lasix] 40 mg PO DAILY 30 Days #30 tab Continue Ferrous Sulfate [Iron] 325 mg PO BID-W/MEALS Midodrine HCl 5 mg PO TID PRN PRN Reason: sbp less than 90 Gabapentin 300 mg PO TID Levothyroxine Sodium [Synthroid] 25 mcg PO DAILY Ondansetron Odt [Zofran ODT] 4 mg PO BID PRN PRN Reason: Nausea OLANZapine [ZyPREXA] 2.5 mg PO HS Vitamin D3(Unknown Dose) 1 tab PO DAILY DULoxetine HCL [Cymbalta] 60 mg PO DAILY Potassium Chloride ER [K-Dur 20] 20 meq PO DAILY lamoTRIgine [LaMICtal] 75 mg PO HS Pantoprazole [Protonix] 40 mg PO BID traMADol HCL 50 mg PO Q6H PRN PRN Reason: Pain Loperamide [Imodium] 4 mg PO QID PRN PRN Reason: Diarrhea Simethicone [Mylanta Gas Minis] 125 mg PO BID Discontinued Famotidine [Pepcid] 40 mg PO DAILY Discharge Medication List DULoxetine HCL [Cymbalta] 60 mg PO DAILY 11/03/22 [History] Ferrous Sulfate [Iron] 325 mg PO BID-W/MEALS 11/03/22 [History] Midodrine HCl 5 mg PO TID PRN 11/03/22 [History] Potassium Chloride ER [K-Dur 20] 20 meq PO DAILY 11/03/22 [History] lamoTRIgine [LaMICtal] 75 mg PO HS 11/28/22 [History] Gabapentin 300 mg PO TID 05/29/23 [History] Pantoprazole [Protonix] 40 mg PO BID 06/04/23 [History] traMADol HCL 50 mg PO Q6H PRN 09/14/23 [History] Levothyroxine Sodium [Synthroid] 25 mcg PO DAILY 08/08/24 [History] Loperamide [Imodium] 4 mg PO QID PRN 08/08/24 [History] OLANZapine [ZyPREXA] 2.5 mg PO HS 08/08/24 [History] Ondansetron Odt [Zofran ODT] 4 mg PO BID PRN 08/08/24 [History] Simethicone [Mylanta Gas Minis] 125 mg PO BID 08/08/24 [History] Vitamin D3(Unknown Dose) 1 tab PO DAILY 08/08/24 [History] Furosemide [Lasix] 40 mg PO DAILY 30 Days #30 tab 08/17/24 [Rx] Follow up Appointment(s)/Referral(s): [facility], [NON-STAFF] - Michael Leal MD [Primary Care Provider] - 1-2 days Discharge/Stand Alone Forms: Who Do I Call?, Help In The Home
== END 2024-08-17 15:45 | disposition home health service (06) | DRG 435 ==
LOC: EC 13:17 → 5NMEDONC 17:31 → OBSVTOIN 17:32 → 5NMEDONC 21:11
PROVIDERS: ADMIT Internal Medicine; ATTEND Internal Medicine
PROC: 0W9G3ZZ Drainage of Peritoneal Cavity, Percutaneous Approach (ICD-10-PCS; principal; 2024-08-12)
DX: C25.0 Malignant neoplasm of head of pancreas (principal); E43 Unspecified severe protein-calorie malnutrition; I77.4 Celiac artery compression syndrome; J90 Pleural effusion, not elsewhere classified; R18.8 Other ascites; E88.09 Other disorders of plasma-protein metabolism, not elsewhere classified; S09.90XA Unspecified injury of head, initial encounter; J44.89 Other specified chronic obstructive pulmonary disease; F32.A Depression, unspecified; I10 Essential (primary) hypertension; F10.11 Alcohol abuse, in remission; G47.33 Obstructive sleep apnea (adult) (pediatric); E78.5 Hyperlipidemia, unspecified; F41.9 Anxiety disorder, unspecified; M19.90 Unspecified osteoarthritis, unspecified site; R74.01 Elevation of levels of liver transaminase levels; E80.6 Other disorders of bilirubin metabolism; R53.1 Weakness; R41.3 Other amnesia; K21.9 Gastro-esophageal reflux disease without esophagitis; R26.9 Unspecified abnormalities of gait and mobility; R53.81 Other malaise; W06.XXXA Fall from bed, initial encounter; Y92.230 Patient room in hospital as the place of occurrence of the external cause; Z68.22 Body mass index [BMI] 22.0-22.9, adult; Z98.890 Other specified postprocedural states; Z90.711 Acquired absence of uterus with remaining cervical stump; Z91.81 History of falling; Z87.891 Personal history of nicotine dependence; Z79.890 Hormone replacement therapy; Z79.899 Other long term (current) drug therapy; Z97.8 Presence of other specified devices
CPT/HCPCS: 36415; 49083; 70450; 71046; 71275; 74177; 80053; 82945; 83605; 83690; 83735; 83880; 84100; 84157; 84484; 85025; 85379; 85610; 85730; 86301; 87070; 87075; 87205; 87636; 88108; 88305; 88341; 88342; 89050; 93005; 93970; 94760; 96361; 96374; 99285

== ENCOUNTER 2024-08-18 13:18 | Observation (INO) | payer MEDICARE, OTHER ==
--- NOTE | 2024-08-18 13:45 | ED ---
Weakness HPI - General Source: patient, RN notes reviewed Mode of arrival: wheelchair Limitations: no limitations <Jessica Carbajal - Last Filed: 08/18/24 13:43> <Shaunna Conley - Last Filed: 08/22/24 12:36> - General Chief complaint: Weakness Stated complaint: Weakness Time Seen by Provider: 08/18/24 13:43 - History of Present Illness Initial comments: [id number] female with history of pancreatic cancer presenting for weakness. States she was admitted to the hospital for this complaint and just discharged yesterday. States due to the weakness, it was recommended that she attend rehab however patient adamantly refused at the time. States she returned to the ER because she changed her mind about placement. (Jessica Carbajal) Patient is a 59-year-old female with past medical history of pancreatic cancer. Patient was recently admitted for generalized weakness and lower extremity swelling. She was discharged yesterday after she refused admission to a nursing facility. Patient states that she tried to get out of bed this morning and transfer her to her walker however she was unable to due to weakness. Endorses right knee pain without any new falls since yesterday. Endorses lower extremity swelling, similar to her recent admission. She denies any new complaints. Is hoping for admission to be placed in a nursing facility. (Shaunna Conley) - Related Data Home Medications Medication Instructions Recorded Confirmed DULoxetine HCL [Cymbalta] 60 mg PO DAILY 11/03/22 08/18/24 Ferrous Sulfate [Iron] 325 mg PO BID-W/MEALS 11/03/22 08/18/24 Midodrine HCl 5 mg PO TID PRN 11/03/22 08/18/24 Potassium Chloride ER [K-Dur 20] 20 meq PO DAILY 11/03/22 08/18/24 lamoTRIgine [LaMICtal] 75 mg PO HS 11/28/22 08/18/24 Gabapentin 300 mg PO TID 05/29/23 08/18/24 Pantoprazole [Protonix] 40 mg PO BID 06/04/23 08/18/24 traMADol HCL 50 mg PO Q6H PRN 09/14/23 08/18/24 Levothyroxine Sodium [Synthroid] 25 mcg PO DAILY 08/08/24 08/18/24 Loperamide [Imodium] 4 mg PO QID PRN 08/08/24 08/18/24 OLANZapine [ZyPREXA] 2.5 mg PO HS 08/08/24 08/18/24 Ondansetron Odt [Zofran ODT] 4 mg PO BID PRN 08/08/24 08/18/24 Simethicone [Mylanta Gas Minis] 125 mg PO BID 08/08/24 08/18/24 Vitamin D3(Unknown Dose) 1 tab PO DAILY 08/08/24 08/18/24 Previous Rx's Medication Instructions Recorded Furosemide [Lasix] 40 mg PO DAILY 30 Days #30 tab 08/17/24 Allergies Allergy/AdvReac Type Severity Reaction Status Date / Time No Known Allergies Allergy Verified 08/18/24 18:50 Review of Systems ROS Other: All systems not noted in ROS Statement are negative. <Jessica Carbajal - Last Filed: 08/18/24 13:43> ROS Other: All systems not noted in ROS Statement are negative. <Shaunna Conley - Last Filed: 08/22/24 12:36> ROS Statement: Those systems with pertinent positive or pertinent negative responses have been documented in the HPI. Past Medical History Past Medical History: Asthma, Cancer, COPD, GERD/Reflux, Memory Impairment, Musculoskeletal Disorder, Osteoarthritis (OA), Sleep Apnea/CPAP/BIPAP Additional Past Medical History / Comment(s): PT STATES SOME MEMORY PROBLEMS AND LEARNING DISABILITY, HAS FRIEND WHO HELPS HER WITH MEDICATIONS AND APPTS., STATES MUSCLE SPASMS, BACK PROBLEMS WITH DISC DISEASE, ANEMIA, URINARY URGENCY, PROBLEMS WITH DIARRHEA & CONSTIPATION.Pancreatic CA diagnosed August 2022, started chemo on 11/03/22 History of Any Multi-Drug Resistant Organisms: None Reported Past Surgical History: Section, Cholecystectomy, Hysterectomy Additional Past Surgical History / Comment(s): 2 C-SECTIONS, PARTIAL HYSTERECTOMY, BERNADETTE REMOVED. States she had a stent after "yellow jaundice" due to a blockage, done Bruce Valentine, COLONOSCOPY, EGD Past Anesthesia/Blood Transfusion Reactions: Motion Sickness Additional Past Anesthesia/Blood Transfusion Reaction / Comment(s): STATES DIFFICULTY WAKING UP AFTER ANESTHESIA, has had two blood transfusion without incident Past Psychological History: Anxiety, Depression Smoking Status: Former smoker Past Alcohol Use History: None Reported Past Drug Use History: None Reported - Past Family History Mother Family Medical History: Cancer Additional Family Medical History / Comment(s): LUNG AND BRAIN CA <Jessica Carbajal - Last Filed: 08/18/24 13:43> General Exam Limitations: no limitations <Jessica Carbajal - Last Filed: 08/18/24 13:43> <EnglishShaunna - Last Filed: 08/22/24 12:36> - General Exam Comments Initial Comments: Physical Exam Vital signs reviewed General: Well-appearing, nontoxic, no acute distress. Head: Normocephalic, atraumatic Eyes: PERRLA, EOMI ENT: Airway patent Chest: Nonlabored breathing Skin: No visual rash, normal skin tone Neuro: Alert and oriented 3 Musculoskeletal: No gross abnormalities m (Jessica Carbajal) PE: CONSTITUTIONAL: No apparent distress, chronically ill appearing SKIN: Warm, dry, no jaundice, hives or petechiae EYES: Pupils are equally round, extraocular movements intact without nystagmus, clear conjunctiva, non-icteric sclera HENT: Normocephalic, atraumatic, moist mucus membranes, oropharynx clear without exudates NECK: , Full range of motion, normal appearance PULMONARY: Clear to auscultation without wheezes, rhonchi, or rales, normal excursion, no accessory muscle use and no stridor CARDIOVASCULAR: Regular rate, rhythm, normal S1 and S2. No appreciated murmurs, rubs or gallops. Strong radial pulses with intact distal perfusion. 2-3+ bilateral LE pitting edema GASTROINTESTINAL: Soft, active bowel sounds throughout, non-tender, non- distended, no palpable masses, no rebound or guarding. No hepatosplenomegaly GENITOURINARY: MUSCULOSKELETAL: Extremities have no gross deformity NEUROLOGIC:_a/o x 3, GCS 15, normal mentation and speech. Moves all extremities x 4 without motor or sensory deficit PSYCHIATRIC:_normal mood and affect, thought process is clear and linear (Shaunna Conley) Course Vital Signs 08/18/24 08/18/24 08/18/24 13:20 18:22 19:43 Temperature 97.9 F 97.6 F Pulse Rate 119 H 75 Pulse Rate [ 82 Tank Welder ] Respiratory 16 18 Rate Blood Pressure 80/65 122/95 O2 Sat by Pulse 100 98 Oximetry 08/19/24 00:16 Temperature 98.4 F Pulse Rate 71 Pulse Rate [ Tank Welder ] Respiratory 18 Rate Blood Pressure 121/78 O2 Sat by Pulse 99 Oximetry Medical Decision Making <Jessica Carbajal - Last Filed: 08/18/24 13:43> - Lab Data Result diagrams: 08/22/24 03:23 08/22/24 03:23 <Shaunna Conley - Last Filed: 08/22/24 12:36> - Medical Decision Making I completed the quick note portion of this chart signed Jessica Carbajal PA-C (Jessica Carbajal) Was pt. sent in by a medical professional or institution (, PA, PROGRAM REVIEW DIRECTOR, urgent care, hospital, or [place] health care facility...) When possible be specific @ -No Did you speak to anyone other than the patient for history (EMS, parent, family, police, friend...)? What history was obtained from this source @ -No Did you review nursing and triage notes (agree or disagree)? Why? @ -I reviewed and agree with nursing and triage notes Were old charts reviewed (outside hosp., previous admission, EMS record, old EKG, old radiological studies, urgent care reports/EKG's, [place] health care facility records)? Report findings @ -Medical records reviewed-Reviewed imaging obtained during patient's last admission, she had an ultrasound of the lower extremities due to leg swelling, on review of this report ultrasound was negative for DVT Differential Diagnosis (chest pain, altered mental status, abdominal pain women, abdominal pain men, vaginal bleeding, weakness, fever, dyspnea, syncope, headache, dizziness, GI bleed, back pain, seizure, CVA, palpatations, mental health, musculoskeletal)? @Differential Weakness: Hypoglycemia, shock, sepsis, hyponatremia, anemia, infection, IA, ETOH, adverse medicine reaction, overdose, stroke, this is not meant to be an all-inclusive list. EKG interpreted by me (3pts min.). @ -As above X-rays interpreted by me (1pt min.). @ -None done CT interpreted by me (1pt min.). @ -None done U/S interpreted by me (1pt. min.). @ -None done What testing was considered but not performed or refused? (CT, X-rays, U/S, la bs)? Why? @ -None What meds were considered but not given or refused? Why? @ -None Did you discuss the management of the patient with other professionals (professionals i.e. , PA, PROGRAM REVIEW DIRECTOR, lab, RT, psych nurse, drug abuse social worker, divorce lawyer, teacher, alumni relations officer, lining caser)? Give summary @ -No Was smoking cessation discussed for >3mins.? @ -No Was critical care preformed (if so, how long)? @ -No Were there social determinants of health that impacted care today? How? (Homelessness, low income, unemployed, alcoholism, drug addiction, transportation, low edu. Level, literacy, decrease access to med. care, half-way, rehab)? @ -No Was there de-escalation of care discussed even if they declined (Discuss DNR or withdrawal of care, Hospice)? @ -No What co-morbidities impacted this encounter? (DM, HTN, Smoking, COPD, CAD, Cancer, CVA, ARF, Chemo, Hep., AIDS, mental health diagnosis, sleep apnea, morbid obesity)? @Pancreatic cancer Was patient admitted / discharged? Hospital course, mention meds given and route, prescriptions, significant lab abnormalities, going to OR and other pertinent info. @ -Admission-this is a pleasant 59-year-old female presenting today for persistence of generalized weakness after being admitted for similar and discharged yesterday. Patient was evaluated and recommended for nursing facility however refused admission to nursing facility and was discharged home. My assessment patient is chronically ill-appearing though in no acute distress. Noted bilateral lower extremity edema. She denies any additional new systems since discharge. She is tachycardic here and borderline hypotensive however MAP 70. Will repeat basic labs plus mag and ical level, otherwise do not feel additional labs/imaging indicated at this point since pt denies new symptoms and is afebrile. Discussed with pt obtaining labs and plan for admission for nursing facility placement, she is agreeable with [facility]. Vital signs improved spontaneously. Case discussed with Dr. Leal who kindly accepted pt for admission. Undiagnosed new problem with uncertain prognosis? @ -No Drug Therapy requiring intensive monitoring for toxicity (Heparin, Nitro, Insulin, Cardizem)? @ -No Were any procedures done? @ -No Diagnosis/symptom? @Generalized weakness, LE edema Acute, or Chronic, or Acute on Chronic? acute on chronic Uncomplicated (without systemic symptoms) or Complicated (systemic symptoms)? @ -complicated Side effects of treatment? @ -No Exacerbation, Progression, or Severe Exacerbation? @ -No Poses a threat to life or bodily function? How? (Chest pain, USA, IA, pneumonia, PE, COPD, DKA, ARF, appy, cholecystitis, CVA, Diverticulitis, Homicidal, Suicidal, threat to staff... and all critical care pts) @ -No (Shaunna Conley) - Lab Data Lab Results 08/18/24 08/18/24 08/18/24 Range/Units 18:14 18:14 18:14 WBC 8.79 (4.50-10.00) 10*3/uL RBC 3.22 L (4.10-5.20) 10*6/uL Hgb 9.3 L (12.0-15.0) g/dL Hct 26.8 L (37.2-46.3) % MCV 83.2 (80.0-97.0) fL MCH 28.9 (27.0-32.0) pg MCHC 34.7 (32.0-37.0) g/dL Plt Count 253 (140-440) 10*3/uL MPV 9.6 (9.5-12.2) fL Immature Gran % (Auto) 1.0 % Neutrophils % 82.2 % Lymphocytes % 7.8 % Monocytes % 8.3 % Eosinophils % 0.2 % Basophils % 0.5 % Immature Gran # 0.09 H (0.00-0.04) 10*3/uL Neutrophils # 7.22 (1.80-7.70) 10*3/uL Lymphocytes # 0.69 L (0.90-5.00) 10*3/uL Monocytes # 0.73 (0.20-1.00) 10*3/uL Eosinophils # 0.02 L (0.04-0.35) 10*3/uL Basophils # 0.04 (0.00-0.10) 10*3/uL Sodium 130 L (137-145) mmol/L Potassium 3.8 (3.5-5.1) mmol/L Chloride 101 (98-107) mmol/L Carbon Dioxide 21 L (22-30) mmol/L Anion Gap 8 mmol/L BUN 15 (7-17) mg/dL Creatinine 1.03 (0.52-1.04) mg/dL Est GFR (CKD-EPI)AfAm 68 (>60 ml/min/1.73 sqM) Est GFR (CKD-EPI)NonAf 59 (>60 ml/min/1.73 sqM) Glucose 79 (74-99) mg/dL Calcium 7.7 L (8.4-10.2) mg/dL Ionized Calcium Roberto 4.5 (4.5-5.3) mg/dL Magnesium 1.7 (1.6-2.3) mg/dL Total Bilirubin 2.5 H (0.2-1.3) mg/dL AST 58 H (14-36) U/L ALT 45 H (4-34) U/L Alkaline Phosphatase 529 H (38-126) U/L Total Protein 4.8 L (6.3-8.2) g/dL Albumin 1.8 L (3.5-5.0) g/dL Disposition <Jessica Carbajal - Last Filed: 08/18/24 13:43> <Shaunna Conley - Last Filed: 08/22/24 12:36> Clinical Impression: Generalized weakness Disposition: ADMITTED IP TO THIS HOSP Condition: Stable
[2024-08-18 18:24] LABS: Basophils # (A) 0.04 10*3/uL (0.00-0.10); Basophils % (A) 0.5 %; Eosinophils # (A) 0.02 10*3/uL (0.04-0.35); Eosinophils % (A) 0.2 %; HCT 26.8 % (37.2-46.3); HGB 9.3 g/dL (12.0-15.0); Lymphocytes # (A) 0.69 10*3/uL (0.90-5.00); Lymphocytes % (A) 7.8 %; MCH 28.9 pg (27.0-32.0); MCHC 34.7 g/dL (32.0-37.0); MCV 83.2 fL (80.0-97.0); Monocytes # (A) 0.73 10*3/uL (0.20-1.00); Monocytes % (A) 8.3 %; Neutrophils # (A) 7.22 10*3/uL (1.80-7.70); Neutrophils % (A) 82.2 %; Platelet Count 253 10*3/uL (140-440); RBC 3.22 10*6/uL (4.10-5.20); RDW 17.4 % (11.5-14.5); WBC 8.79 10*3/uL (4.50-10.00)
[2024-08-18 18:50] LABS: ALT 45 U/L (4-34); AST 58 U/L (14-36); African American GFR (CKD) 68 (>60 ml/min/1.73 sqM); Albumin 1.8 g/dL (3.5-5.0); Alkaline Phosphatase 529 U/L (38-126); Anion Gap 8 mmol/L; Blood Urea Nitrogen 15 mg/dL (7-17); Calcium 7.7 mg/dL (8.4-10.2); Carbon Dioxide 21 mmol/L (22-30); Chloride 101 mmol/L (98-107); Glucose 79 mg/dL (74-99); Magnesium 1.7 mg/dL (1.6-2.3); Non-African American GFR(CKD) 59 (>60 ml/min/1.73 sqM); Potassium 3.8 mmol/L (3.5-5.1); Sodium 130 mmol/L (137-145); Total Protein 4.8 g/dL (6.3-8.2)
[2024-08-18] MEDS ORDERED: NALOXONE 0.4 MG/ML 1 ML VIAL IV PRN (21:31)
[2024-08-18] MEDS ORDERED: ACETAMINOPHEN TAB 325 MG TAB PO PRN (21:31)
[2024-08-18] MEDS ORDERED: ONDANSETRON 4 MG/2 ML VIAL IVP PRN (21:31)
[2024-08-18] MEDS ORDERED: HYDROmorphone 1 MG/ML 1 ML SYRINGE IVP PRN (21:31)
[2024-08-18] MEDS ORDERED: MIDODRINE 5 MG TAB PO PRN (21:33)
[2024-08-18] MEDS ORDERED: LOPERAMIDE 2 MG CAP PO PRN (21:33)
[2024-08-18] MEDS: OLANZapine 2.5 MG TAB PO SCH (22:09)
[2024-08-18] MEDS: lamoTRIgine 25 MG TAB PO SCH (22:09)
[2024-08-18] MEDS: GABAPENTIN 300 MG CAP PO SCH (22:09)
[2024-08-19] MEDS: FERROUS SULFATE 325 MG TAB PO SCH (05:41)
[2024-08-19] MEDS: traMADol 50 MG TAB PO PRN (07:52)
[2024-08-19] MEDS: SIMETHICONE 80 MG CHEWABLE PO SCH (10:09)
[2024-08-19] MEDS: LEVOTHYROXINE 25 MCG TAB PO SCH (10:09)
[2024-08-19] MEDS: FUROSEMIDE 40 MG TAB PO SCH (10:10)
[2024-08-19] MEDS: DULoxetine HCL 60 MG CAPSULE.DR PO SCH (10:10)
[2024-08-19] MEDS: HEPARIN SODIUM,PORCINE 5,000 UNIT/ML 1 ML VIAL SQ SCH (10:10)
[2024-08-19] MEDS: PANTOPRAZOLE 40 MG TABLET PO SCH (10:10)
--- NOTE | 2024-08-19 13:07 | P.HPIM ---
History of Present Illness H&P Date: 08/19/24 Luz Marina Mallory, is a 59-year-old female who presented to [facility] emergency room with a chief complaint of severe weakness, patient was recently admitted to the hospital, she was evaluated by physical therapy and recommendation was to transfer her to rehab, however she refused and she insisted on going home. Patient was discharged to home and return to emergency room within 1 day as she was severely weak and unable to get out of her bed. She has a known history of pancreatic cancer, and is followed by oncology. She was evaluated in the emergency room vital examination on presentation revealed a temperature of 97.9 pulse 119 respiration 16 blood pressure 80/65 pulse ox 100% on room air Laboratory data revealed a white blood count of 8.79 hemoglobin 9.3 platelet count 253 BUN 15 creatinine 1.03 AST 58 ALT 45 Patient was admitted to medical floor for further evaluation and treatment Past Medical History Past Medical History: Asthma, Cancer, COPD, GERD/Reflux, Memory Impairment, Musculoskeletal Disorder, Osteoarthritis (OA), Sleep Apnea/CPAP/BIPAP Additional Past Medical History / Comment(s): PT STATES SOME MEMORY PROBLEMS AND LEARNING DISABILITY, HAS FRIEND WHO HELPS HER WITH MEDICATIONS AND APPTS., STATES MUSCLE SPASMS, BACK PROBLEMS WITH DISC DISEASE, ANEMIA, URINARY URGENCY, PROBLEMS WITH DIARRHEA & CONSTIPATION.Pancreatic CA diagnosed August 2022, started chemo on 11/03/22 History of Any Multi-Drug Resistant Organisms: None Reported Past Surgical History: Section, Cholecystectomy, Hysterectomy Additional Past Surgical History / Comment(s): 2 C-SECTIONS, PARTIAL HYSTERECTOMY, BERNADETTE REMOVED. 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[employer] Smoking Status: Former smoker Past Alcohol Use History: None Reported Additional Past Alcohol Use History / Comment(s): smoked at a very young age, from [age] to 12 years old Past Drug Use History: None Reported - Past Family History Mother Family Medical History: Cancer Additional Family Medical History / Comment(s): LUNG AND BRAIN CA Medications and Allergies Home Medications Medication Instructions Recorded Confirmed Type DULoxetine HCL [Cymbalta] 60 mg PO DAILY 11/03/22 08/18/24 History Ferrous Sulfate [Iron] 325 mg PO BID-W/MEALS 11/03/22 08/18/24 History Midodrine HCl 5 mg PO TID PRN 11/03/22 08/18/24 History Potassium Chloride ER [K-Dur 20] 20 meq PO DAILY 11/03/22 08/18/24 History lamoTRIgine [LaMICtal] 75 mg PO HS 11/28/22 08/18/24 History Gabapentin 300 mg PO TID 05/29/23 08/18/24 History Pantoprazole [Protonix] 40 mg PO BID 06/04/23 08/18/24 History traMADol HCL 50 mg PO Q6H PRN 09/14/23 08/18/24 History Levothyroxine Sodium [Synthroid] 25 mcg PO DAILY 08/08/24 08/18/24 History Loperamide [Imodium] 4 mg PO QID PRN 08/08/24 08/18/24 History OLANZapine [ZyPREXA] 2.5 mg PO HS 08/08/24 08/18/24 History Ondansetron Odt [Zofran ODT] 4 mg PO BID PRN 08/08/24 08/18/24 History Simethicone [Mylanta Gas Minis] 125 mg PO BID 08/08/24 08/18/24 History Vitamin D3(Unknown Dose) 1 tab PO DAILY 08/08/24 08/18/24 History Furosemide [Lasix] 40 mg PO DAILY 30 Days #30 tab 08/17/24 08/18/24 Rx Allergies Allergy/AdvReac Type Severity Reaction Status Date / Time No Known Allergies Allergy Verified 08/18/24 18:50 Physical Exam Vitals: Vital Signs Temp Pulse Pulse Resp BP BP BP 08/19/24 07:00 98.1 F 114 H 19 94/62 08/19/24 01:58 98.5 F 109 H 16 103/72 08/19/24 01:22 98.5 F 109 H 16 103/72 08/19/24 00:16 98.4 F 71 18 121/78 08/18/24 19:43 97.6 F 75 18 122/95 08/18/24 18:22 82 08/18/24 13:20 97.9 F 119 H 16 80/65 Pulse Ox 08/19/24 07:00 100 08/19/24 01:58 97 08/19/24 01:22 97 08/19/24 00:16 99 08/18/24 19:43 98 08/18/24 18:22 08/18/24 13:20 100 Intake and Output 08/18/24 08/19/24 08/19/24 22:59 06:59 14:59 Other: Weight 45.813 kg In general patient is alert and oriented x 3 in no distress HEENT head normocephalic and atraumatic Neck is supple no JVD no goiter no lymphadenopathy no carotid bruit Chest examination is clear to auscultation no crackles no wheezing Cardiac exam reveals regular heart sounds S1 and S2 no gallops no murmurs Abdomen is soft nontender no organomegaly with normal bowel sounds Extremity exam reveals no edema no cyanosis or clubbing Neurological examination reveals no gross focal deficits Results CBC & Chem 7: 08/18/24 18:14 08/18/24 18:14 Labs: Abnormal Lab Results - Last 24 Hours (Table) 08/18/24 08/18/24 Range/Units 18:14 18:14 RBC 3.22 L (4.10-5.20) 10*6/uL Hgb 9.3 L (12.0-15.0) g/dL Hct 26.8 L (37.2-46.3) % Immature Gran # 0.09 H (0.00-0.04) 10*3/uL Lymphocytes # 0.69 L (0.90-5.00) 10*3/uL Eosinophils # 0.02 L (0.04-0.35) 10*3/uL Sodium 130 L (137-145) mmol/L Carbon Dioxide 21 L (22-30) mmol/L Calcium 7.7 L (8.4-10.2) mg/dL Total Bilirubin 2.5 H (0.2-1.3) mg/dL AST 58 H (14-36) U/L ALT 45 H (4-34) U/L Alkaline Phosphatase 529 H (38-126) U/L Total Protein 4.8 L (6.3-8.2) g/dL Albumin 1.8 L (3.5-5.0) g/dL Assessment and Plan Plan: Severe weakness with inability to stand and walk Underlying history of pancreatic cancer Moderate to severe protein calorie malnutrition Underlying history of COPD Underlying history of obstructive sleep apnea Underlying history of hypertension Underlying history of hyperlipidemia Underlying history of depression with anxiety At this time patient was seen and examined Home medications reviewed and reordered Consultation for management for arrangement to transfer to alf
[2024-08-19] MEDS: ONDANSETRON ODT 4 MG TAB PO PRN (17:46)
[2024-08-20] MEDS: POTASSIUM CHLORIDE ER 20 MEQ TAB.ER PO SCH (09:11)
[2024-08-20 09:26] LABS: Basophils # (A) 0.03 X 10*3/uL (0.00-0.10); Basophils % (A) 0.7 %; Eosinophils # (A) 0.09 X 10*3/uL (0.04-0.35); Eosinophils % (A) 2.1 %; HCT 27.1 % (37.2-46.3); HGB 8.7 g/dL (12.0-15.0); Immature Grans, Automated 1.00 %; Lymphocytes # (A) 0.60 X 10*3/uL (0.90-5.00); Lymphocytes % (A) 14.3 %; MCH 28.3 pg (27.0-32.0); MCHC 32.1 g/dL (32.0-37.0); MCV 88.3 FL (80.0-97.0); Monocytes # (A) 0.40 X 10*3/uL (0.20-1.00); Monocytes % (A) 9.5 %; NRBC Per 100 WBC 0 X 10*3/uL (0.00-0.01); Neutrophils # (A) 3.04 X 10*3/uL (1.80-7.70); Neutrophils % (A) 72.4 %; Platelet Count 163 X 10*3/uL (140-440); RBC 3.07 X 10*6/uL (4.10-5.20); RDW 18.7 % (11.5-14.5); WBC 4.20 X 10*3/uL (4.50-10.00)
[2024-08-20 09:37] LABS: ALT 51 U/L (8-44); AST 60 U/L (13-35); Albumin 1.6 g/dL (3.8-4.9); Albumin/Globulin Ratio 0.62 Ratio (1.60-3.17); Alkaline Phosphatase 557 U/L (41-126); Anion Gap 9.60 mmol/L (4.00-12.00); BUN/Creat Ratio 14.50 Ratio (12.00-20.00); Blood Urea Nitrogen 14.5 mg/dL (9.0-27.0); Calcium 7.2 mg/dL (8.7-10.3); Carbon Dioxide 23.4 mmol/L (21.6-31.8); Chloride 100 mmol/L (96-109); Globulin 2.6 g/dL (1.6-3.3); Glucose 64 mg/dL (70-110); Potassium 3.5 mmol/L (3.5-5.5); Sodium 133 mmol/L (135-145); Total Protein 4.2 g/dL (6.2-8.2)
[2024-08-20 12:28] LABS: Glucose,Whole Blood 167 mg/dL (70-110)
--- NOTE | 2024-08-20 12:48 | P.PN ---
Subjective Progress Note Date: 08/20/24 Luz Marina Mallory, is a 59-year-old female who presented to [facility] emergency room with a chief complaint of severe weakness, patient was recently admitted to the hospital, she was evaluated by physical therapy and recommendation was to transfer her to rehab, however she refused and she insisted on going home. Patient was discharged to home and return to emergency room within 1 day as she was severely weak and unable to get out of her bed. She has a known history of pancreatic cancer, and is followed by oncology. She was evaluated in the emergency room vital examination on presentation revealed a temperature of 97.9 pulse 119 respiration 16 blood pressure 80/65 pulse ox 100% on room air Laboratory data revealed a white blood count of 8.79 hemoglobin 9.3 platelet count 253 BUN 15 creatinine 1.03 AST 58 ALT 45 Patient was admitted to medical floor for further evaluation and treatment. On 08/20/2024 patient was seen and examined on the medical floor is alert and oriented x 3 in no apparent distress, he is complaining of severe weakness with inability to stand or walk otherwise she denies any complaints there is no fever or chills no headache or dizziness no chest pain no shortness of breath no cough no nausea or vomiting no abdominal pain no diarrhea no urinary symptoms. Patient denies any significant pain. Blood pressure is low today and urine output is low, will add IV fluid normal saline at 75 cc an hour, check bladder scan, add protein supplement, nutrition consult, PT OT consult will continue to follow closely Objective - Vital Signs Vital signs: Vital Signs Temp 98.0 F 08/20/24 07:00 Pulse 91 08/20/24 07:00 Resp 16 08/20/24 07:00 BP 101/70 08/20/24 07:00 Pulse Ox 92 L 08/20/24 07:00 FiO2 Intake & Output 08/19/24 08/20/24 08/20/24 18:59 06:59 18:59 Output Total 300 Balance -300 Output: Urine 300 Other: Voiding Method Toilet Bedside Commode # Voids 1 1 - Exam In general patient is alert and oriented x 3 in no distress HEENT head normocephalic and atraumatic Neck is supple no JVD no goiter no lymphadenopathy no carotid bruit Chest examination is clear to auscultation no crackles no wheezing Cardiac exam reveals regular heart sounds S1 and S2 no gallops no murmurs Abdomen is soft nontender no organomegaly with normal bowel sounds Extremity exam reveals no edema no cyanosis or clubbing Neurological examination reveals no gross focal deficits - Labs CBC & Chem 7: 08/20/24 03:52 08/20/24 03:52 Labs: Abnormal Lab Results - Last 24 Hours (Table) 08/20/24 08/20/24 Range/Units 03:52 03:52 WBC 4.20 L (4.50-10.00) X 10*3/uL RBC 3.07 L (4.10-5.20) X 10*6/uL Hgb 8.7 L (12.0-15.0) g/dL Hct 27.1 L (37.2-46.3) % RDW 18.7 H (11.5-14.5) % Lymphocytes # 0.60 L (0.90-5.00) X 10*3/uL Sodium 133 L (135-145) mmol/L Glucose 64 L (70-110) mg/dL Calcium 7.2 L (8.7-10.3) mg/dL Total Bilirubin 1.7 H (0.3-1.2) mg/dL AST 60 H (13-35) U/L ALT 51 H (8-44) U/L Alkaline Phosphatase 557 H (41-126) U/L Total Protein 4.2 L (6.2-8.2) g/dL Albumin 1.6 L (3.8-4.9) g/dL Albumin/Globulin Ratio 0.62 L (1.60-3.17) Ratio Assessment and Plan Plan: Severe weakness with inability to stand and walk Underlying history of pancreatic cancer Moderate to severe protein calorie malnutrition Underlying history of COPD Underlying history of obstructive sleep apnea Underlying history of hypertension Underlying history of hyperlipidemia Underlying history of depression with anxiety At this time patient was seen and examined Home medications reviewed and reordered Consultation for management for arrangement to transfer to [facility]
[2024-08-20] MEDS: SODIUM CHLORIDE 0.9% 1,000 ML IV STA (15:54)
--- NOTE | 2024-08-21 09:43 | P.PN ---
Subjective Progress Note Date: 08/21/24 Luz Marina Mallory, is a 59-year-old female who presented to [facility] emergency room with a chief complaint of severe weakness, patient was recently admitted to the hospital, she was evaluated by physical therapy and recommendation was to transfer her to rehab, however she refused and she insisted on going home. Patient was discharged to home and return to emergency room within 1 day as she was severely weak and unable to get out of her bed. She has a known history of pancreatic cancer, and is followed by oncology. She was evaluated in the emergency room vital examination on presentation revealed a temperature of 97.9 pulse 119 respiration 16 blood pressure 80/65 pulse ox 100% on room air Laboratory data revealed a white blood count of 8.79 hemoglobin 9.3 platelet count 253 BUN 15 creatinine 1.03 AST 58 ALT 45 Patient was admitted to medical floor for further evaluation and treatment. On 08/20/2024 patient was seen and examined on the medical floor is alert and oriented x 3 in no apparent distress, he is complaining of severe weakness with inability to stand or walk otherwise she denies any complaints there is no fever or chills no headache or dizziness no chest pain no shortness of breath no cough no nausea or vomiting no abdominal pain no diarrhea no urinary symptoms. Patient denies any significant pain. Blood pressure is low today and urine output is low, will add IV fluid normal saline at 75 cc an hour, check bladder scan, add protein supplement, nutrition consult, PT OT consult will continue to follow closely On 08/21/2024 patient was seen and examined on the medical floor he is alert and oriented x 3 in no apparent distress, there is no fever or chills no headache or dizziness no chest pain no shortness of breath no cough no nausea or vomiting no abdominal pain no diarrhea and no urinary symptoms, patient still has severe weakness with inability to stand or walk, agreeable now to go to a correction, she stated that she prefers to go to [facility]. Objective - Vital Signs Vital signs: Vital Signs Temp 97.8 F 08/21/24 02:00 Pulse 94 08/21/24 02:00 Resp 16 08/21/24 02:00 BP 100/67 08/21/24 02:00 Pulse Ox 97 08/21/24 02:00 FiO2 Intake & Output 08/20/24 08/21/2408/21/25 18:59 06:59 18:59 Intake Total 0 0 Output Total 200 Balance 0 -200 Intake: Oral 0 0 Output: Urine 200 Other: Voiding Method Bedside Commode Indwelling Catheter - Exam In general patient is alert and oriented x 3 in no distress HEENT head normocephalic and atraumatic Neck is supple no JVD no goiter no lymphadenopathy no carotid bruit Chest examination is clear to auscultation no crackles no wheezing Cardiac exam reveals regular heart sounds S1 and S2 no gallops no murmurs Abdomen is soft nontender no organomegaly with normal bowel sounds Extremity exam reveals no edema no cyanosis or clubbing Neurological examination reveals no gross focal deficits - Labs CBC & Chem 7: 08/20/24 03:52 08/20/24 03:52 Labs: Abnormal Lab Results - Last 24 Hours (Table) 08/20/24 08/20/24 08/20/24 Range/Units 03:52 03:52 12:27 WBC 4.20 L (4.50-10.00) X 10*3/uL RBC 3.07 L (4.10-5.20) X 10*6/uL Hgb 8.7 L (12.0-15.0) g/dL Hct 27.1 L (37.2-46.3) % RDW 18.7 H (11.5-14.5) % Lymphocytes # 0.60 L (0.90-5.00) X 10*3/uL Sodium 133 L (135-145) mmol/L Glucose 64 L (70-110) mg/dL POC Glucose (mg/dL) 167 H (70-110) mg/dL Calcium 7.2 L (8.7-10.3) mg/dL Total Bilirubin 1.7 H (0.3-1.2) mg/dL AST 60 H (13-35) U/L ALT 51 H (8-44) U/L Alkaline Phosphatase 557 H (41-126) U/L Total Protein 4.2 L (6.2-8.2) g/dL Albumin 1.6 L (3.8-4.9) g/dL Albumin/Globulin Ratio 0.62 L (1.60-3.17) Ratio Assessment and Plan Plan: Severe weakness with inability to stand and walk Underlying history of pancreatic cancer Moderate to severe protein calorie malnutrition Underlying history of COPD Underlying history of obstructive sleep apnea Underlying history of hypertension Underlying history of hyperlipidemia Underlying history of depression with anxiety At this time patient was seen and examined Home medications reviewed and reordered Consultation for management for arrangement to transfer to correction
[2024-08-22 08:07] LABS: ALT 48 U/L (8-44); AST 54 U/L (13-35); Albumin 1.6 g/dL (3.8-4.9); Albumin/Globulin Ratio 0.57 Ratio (1.60-3.17); Alkaline Phosphatase 627 U/L (41-126); Anion Gap 11.60 mmol/L (4.00-12.00); BUN/Creat Ratio 14.11 Ratio (12.00-20.00); Blood Urea Nitrogen 12.7 mg/dL (9.0-27.0); Calcium 7.1 mg/dL (8.7-10.3); Carbon Dioxide 20.4 mmol/L (21.6-31.8); Chloride 104 mmol/L (96-109); Globulin 2.8 g/dL (1.6-3.3); Glucose 100 mg/dL (70-110); Potassium 3.3 mmol/L (3.5-5.5); Sodium 136 mmol/L (135-145); Total Protein 4.4 g/dL (6.2-8.2)
[2024-08-22 08:27] LABS: Basophils # (A) 0.03 X 10*3/uL (0.00-0.10); Basophils % (A) 0.4 %; Eosinophils # (A) 0.02 X 10*3/uL (0.04-0.35); Eosinophils % (A) 0.3 %; HCT 29.7 % (37.2-46.3); HGB 9.9 g/dL (12.0-15.0); Immature Grans, Automated 0.90 %; Lymphocytes # (A) 0.47 X 10*3/uL (0.90-5.00); Lymphocytes % (A) 7.0 %; MCH 29.1 pg (27.0-32.0); MCHC 33.3 g/dL (32.0-37.0); MCV 87.4 FL (80.0-97.0); Monocytes # (A) 0.53 X 10*3/uL (0.20-1.00); Monocytes % (A) 7.9 %; NRBC Per 100 WBC 0 X 10*3/uL (0.00-0.01); Neutrophils # (A) 5.58 X 10*3/uL (1.80-7.70); Neutrophils % (A) 83.5 %; Platelet Count 231 X 10*3/uL (140-440); RBC 3.40 X 10*6/uL (4.10-5.20); RDW 19.3 % (11.5-14.5); WBC 6.69 X 10*3/uL (4.50-10.00)
[2024-08-22 14:23] VITALS: BMI 22.6
--- NOTE | 2024-08-22 17:22 | P.PN ---
Subjective Progress Note Date: 08/22/24 Luz Marina Mallory, is a 59-year-old female who presented to [facility] emergency room with a chief complaint of severe weakness, patient was recently admitted to the hospital, she was evaluated by physical therapy and recommendation was to transfer her to rehab, however she refused and she insisted on going home. Patient was discharged to home and return to emergency room within 1 day as she was severely weak and unable to get out of her bed. She has a known history of pancreatic cancer, and is followed by oncology. She was evaluated in the emergency room vital examination on presentation revealed a temperature of 97.9 pulse 119 respiration 16 blood pressure 80/65 pulse ox 100% on room air Laboratory data revealed a white blood count of 8.79 hemoglobin 9.3 platelet count 253 BUN 15 creatinine 1.03 AST 58 ALT 45 Patient was admitted to medical floor for further evaluation and treatment. On 08/20/2024 patient was seen and examined on the medical floor is alert and oriented x 3 in no apparent distress, she is complaining of severe weakness with inability to stand or walk otherwise she denies any complaints there is no fever or chills no headache or dizziness no chest pain no shortness of breath no cough no nausea or vomiting no abdominal pain no diarrhea no urinary symptoms. Patient denies any significant pain. Blood pressure is low today and urine output is low, will add IV fluid normal saline at 75 cc an hour, check bladder scan, add protein supplement, nutrition consult, PT OT consult will continue to follow closely On 08/21/2024 patient was seen and examined on the medical floor she is alert and oriented x 3 in no apparent distress, there is no fever or chills no headache or dizziness no chest pain no shortness of breath no cough no nausea or vomiting no abdominal pain no diarrhea and no urinary symptoms, patient still has severe weakness with inability to stand or walk, agreeable now to go to a skilled nursing, she stated that she prefers to go to [facility]. On 08/22/2024 patient was seen and examined on the medical floor he is alert and oriented x 3 in no apparent distress there is no fever or chills no headache or dizziness, no chest pain no shortness of breath no cough no nausea or vomiting no abdominal pain no diarrhea and no urinary symptoms. PT and OT are consulted we are awaiting insurance authorization for possible transfer to [facility] Objective - Vital Signs Vital signs: Vital Signs Temp 97.9 F 08/22/24 15:00 Pulse 107 H 08/22/24 15:00 Resp 16 08/22/24 15:00 BP 95/70 08/22/24 15:00 Pulse Ox 98 08/22/24 15:00 FiO2 Intake & Output 08/21/24 08/22/24 08/22/24 18:59 06:59 18:59 Intake Total 150 Output Total 300 200 Balance -150 -200 Weight 45.813 kg Intake: Oral 150 Output: Urine 300 200 Other: Voiding Method Indwelling Catheter Indwelling Catheter Indwelling Catheter # Bowel Movements 1 - Exam In general patient is alert and oriented x 3 in no distress HEENT head normocephalic and atraumatic Neck is supple no JVD no goiter no lymphadenopathy no carotid bruit Chest examination is clear to auscultation no crackles no wheezing Cardiac exam reveals regular heart sounds S1 and S2 no gallops no murmurs Abdomen is soft nontender no organomegaly with normal bowel sounds Extremity exam reveals no edema no cyanosis or clubbing Neurological examination reveals no gross focal deficits - Labs CBC & Chem 7: 08/22/24 03:23 08/22/24 03:23 Labs: Abnormal Lab Results - Last 24 Hours (Table) 08/22/24 08/22/24 Range/Units 03:23 03:23 RBC 3.40 L (4.10-5.20) X 10*6/uL Hgb 9.9 L (12.0-15.0) g/dL Hct 29.7 L (37.2-46.3) % RDW 19.3 H (11.5-14.5) % Immature Gran # 0.06 H (0.00-0.04) X 10*3/uL Lymphocytes # 0.47 L (0.90-5.00) X 10*3/uL Eosinophils # 0.02 L (0.04-0.35) X 10*3/uL Potassium 3.3 L (3.5-5.5) mmol/L Carbon Dioxide 20.4 L (21.6-31.8) mmol/L Calcium 7.1 L (8.7-10.3) mg/dL Total Bilirubin 1.7 H (0.3-1.2) mg/dL AST 54 H (13-35) U/L ALT 48 H (8-44) U/L Alkaline Phosphatase 627 H (41-126) U/L Total Protein 4.4 L (6.2-8.2) g/dL Albumin 1.6 L (3.8-4.9) g/dL Albumin/Globulin Ratio 0.57 L (1.60-3.17) Ratio Assessment and Plan Plan: Severe weakness with inability to stand and walk Underlying history of pancreatic cancer Moderate to severe protein calorie malnutrition Underlying history of COPD Underlying history of obstructive sleep apnea Underlying history of hypertension Underlying history of hyperlipidemia Underlying history of depression with anxiety At this time patient was seen and examined Home medications reviewed and reordered Consultation for management for arrangement to transfer to skilled nursing
[2024-08-23] MEDS ORDERED: ONDANSETRON 4 MG/2 ML VIAL IVP PRN (01:59)
[2024-08-23 14:00] VITALS: BP 114/77; PULSE 89; RESP 16; TEMP 97.6
--- NOTE | 2024-08-23 14:07 | P.DS ---
Providers Date of admission: 08/18/24 21:31 Expected date of discharge: 08/23/24 Attending physician: Michael Leal Primary care physician: Michael Leal [facility] Course: Discharge diagnosis Severe weakness with inability to stand and walk Underlying history of pancreatic cancer Moderate to severe protein calorie malnutrition Underlying history of COPD Underlying history of obstructive sleep apnea Underlying history of hypertension Underlying history of hyperlipidemia Underlying history of depression with anxiety Hospital course Luz Marina Mallory, is a 59-year-old female who presented to [facility] emergency room with a chief complaint of severe weakness, patient was recently admitted to the hospital, she was evaluated by physical therapy and recommendation was to transfer her to rehab, however she refused and she insisted on going home. Patient was discharged to home and return to emergency room within 1 day as she was severely weak and unable to get out of her bed. She has a known history of pancreatic cancer, and is followed by oncology. She was evaluated in the emergency room vital examination on presentation revealed a temperature of 97.9 pulse 119 respiration 16 blood pressure 80/65 pulse ox 100% on room air Laboratory data revealed a white blood count of 8.79 hemoglobin 9.3 platelet count 253 BUN 15 creatinine 1.03 AST 58 ALT 45 Patient was admitted to medical floor for further evaluation and treatment. On 08/20/2024 patient was seen and examined on the medical floor is alert and oriented x 3 in no apparent distress, she is complaining of severe weakness with inability to stand or walk otherwise she denies any complaints there is no fever or chills no headache or dizziness no chest pain no shortness of breath no cough no nausea or vomiting no abdominal pain no diarrhea no urinary symptoms. Patient denies any significant pain. Blood pressure is low today and urine output is low, will add IV fluid normal saline at 75 cc an hour, check bladder scan, add protein supplement, nutrition consult, PT OT consult will continue to follow closely On 08/21/2024 patient was seen and examined on the medical floor she is alert and oriented x 3 in no apparent distress, there is no fever or chills no headache or dizziness no chest pain no shortness of breath no cough no nausea or vomiting no abdominal pain no diarrhea and no urinary symptoms, patient still has severe weakness with inability to stand or walk, agreeable now to go to a jail, she stated that she prefers to go to [facility]. On 08/22/2024 patient was seen and examined on the medical floor he is alert and oriented x 3 in no apparent distress there is no fever or chills no headache or dizziness, no chest pain no shortness of breath no cough no nausea or vomiting no abdominal pain no diarrhea and no urinary symptoms. PT and OT are consulted we are awaiting insurance authorization for possible transfer to [facility] On 08/23/2024 patient is alert and oriented x 3. Patient will be DC'd to [facility] today. Patient denies chest pain or shortness of breath. Patient denies nausea vomiting or diarrhea. Patient denies any urinary burning or frequency Patient Condition at Discharge: Stable Plan - Discharge Summary New Discharge Prescriptions: New Acetaminophen Tab [Tylenol] 650 mg PO Q6HR PRN tab PRN Reason: Mild Pain Or Fever > 100.5 Continue Ferrous Sulfate [Iron] 325 mg PO BID-W/MEALS Midodrine HCl 5 mg PO TID PRN PRN Reason: sbp less than 90 Levothyroxine Sodium [Synthroid] 25 mcg PO DAILY Ondansetron Odt [Zofran ODT] 4 mg PO BID PRN PRN Reason: Nausea OLANZapine [ZyPREXA] 2.5 mg PO HS Vitamin D3(Unknown Dose) 1 tab PO DAILY Furosemide [Lasix] 40 mg PO DAILY 30 Days #30 tab DULoxetine HCL [Cymbalta] 60 mg PO DAILY Potassium Chloride ER [K-Dur 20] 20 meq PO DAILY lamoTRIgine [LaMICtal] 75 mg PO HS Pantoprazole [Protonix] 40 mg PO BID Loperamide [Imodium] 4 mg PO QID PRN PRN Reason: Diarrhea Simethicone [Mylanta Gas Minis] 125 mg PO BID No Action Gabapentin 300 mg PO TID traMADol HCL 50 mg PO Q6H PRN PRN Reason: Pain Discharge Medication List DULoxetine HCL [Cymbalta] 60 mg PO DAILY 11/03/22 [History] Ferrous Sulfate [Iron] 325 mg PO BID-W/MEALS 11/03/22 [History] Midodrine HCl 5 mg PO TID PRN 11/03/22 [History] Potassium Chloride ER [K-Dur 20] 20 meq PO DAILY 11/03/22 [History] lamoTRIgine [LaMICtal] 75 mg PO HS 11/28/22 [History] Gabapentin 300 mg PO TID 05/29/23 [History] Pantoprazole [Protonix] 40 mg PO BID 06/04/23 [History] traMADol HCL 50 mg PO Q6H PRN 09/14/23 [History] Levothyroxine Sodium [Synthroid] 25 mcg PO DAILY 08/08/24 [History] Loperamide [Imodium] 4 mg PO QID PRN 08/08/24 [History] OLANZapine [ZyPREXA] 2.5 mg PO HS 08/08/24 [History] Ondansetron Odt [Zofran ODT] 4 mg PO BID PRN 08/08/24 [History] Simethicone [Mylanta Gas Minis] 125 mg PO BID 08/08/24 [History] Vitamin D3(Unknown Dose) 1 tab PO DAILY 08/08/24 [History] Furosemide [Lasix] 40 mg PO DAILY 30 Days #30 tab 08/17/24 [Rx] Acetaminophen Tab [Tylenol] 650 mg PO Q6HR PRN tab 08/23/24 [Rx] Follow up Appointment(s)/Referral(s): Michael Leal MD [Primary Care Provider] - 1-2 days Discharge Disposition: TRANSFER TO SNF/ECF
== END 2024-08-23 16:27 ==
LOC: EC 13:18 → 1SOBS 21:31 → 4SSUR 08-19 18:16 → 5NMEDONC 08-22 20:58
PROVIDERS: ADMIT Internal Medicine; ATTEND Internal Medicine
DX: E43 Unspecified severe protein-calorie malnutrition (principal); E78.5 Hyperlipidemia, unspecified; F32.A Depression, unspecified; F41.9 Anxiety disorder, unspecified; I10 Essential (primary) hypertension; J44.89 Other specified chronic obstructive pulmonary disease; K21.9 Gastro-esophageal reflux disease without esophagitis; G47.33 Obstructive sleep apnea (adult) (pediatric); M19.90 Unspecified osteoarthritis, unspecified site; Z79.890 Hormone replacement therapy; Z79.899 Other long term (current) drug therapy; Z85.07 Personal history of malignant neoplasm of pancreas; Z87.891 Personal history of nicotine dependence
CPT/HCPCS: 96361; 96365; 96372 ×5; 99285; 36415; 97530 ×3; 97162; 97166; 80053 ×3; 80175; 82330; 83735; 85025 ×3; G0378 ×6; J1644 ×5; J1642